=== PATIENT | female | born 1925 | race Caucasian/White ===

== ENCOUNTER → 2016-03-19 | Outpatient (REF) | payer MEDICARE, MEDICAID ==
[~2016-03-19] MED LIST: /ALEN70TA; ACET65TA; ALPR0.25; BISA10SU2; CALCCHW12; CEFD1CAP8 PO; CITA20TA4 PO; COLA100C PO; COLA100C2; COUM1TAB17 PO; COUM1TAB19 PO; COUM2.5T11 PO; DARV100T; DESMOPRESSIN; DIVA250T7 PO; ESTR62CR PV; FLEXERIL; FLON0.05; FLOVENT; LEVO500T32 PO; LEVO75TA4 PO; MACR100C42 PO; METH1CHW3 PO; MILKSUS; MIRA3350 PO; MIRA33504 PO; MIRT45TA PO; NAPR500T; NYST100024 TOP; PREPOI TOP; SENN1TAB2 PO; SENN8.6T5; SILV50CR TOP; SYNT75TA; SYNT75TA PO; THERGRAN; VICO5TAB; VIMP100T PO; VIMP200T PO; VITA-113; VITA10002 PO; VITAMIN B12; VOLTAREN; WARF-18 PO; WARF4TAB52 PO; XANA0.25; XANA0.25 PO; XANA0.5T PO; [UNRECOGNIZED DRUG - CODE] IV; [UNRECOGNIZED DRUG - OTHER]
== END ==
LOC: M LAB REF 19:42
PROVIDERS: ATTEND Hospitalist
DX: R19.7 Diarrhea, unspecified (principal)

== ENCOUNTER 2016-03-20 10:00 | Inpatient (IN) | payer MEDICARE, MEDICAID ==
[2016-03-20] VITALS (10 sets, daily range): BP systolic 101–168; BP diastolic 59–119
[~2016-03-20] VITALS: Ht 152.4 cm; Wt 58.9 kg
[2016-03-20] MEDS: NYSTATIN 100,000 UNITS/GM TOPICAL PWD 15 GM TOP SCH ×2 (09:00→21:00)
[2016-03-20] MEDS ORDERED: cefTAZidime 1 GM VIAL (J0713) As Ordered ONE (10:09)
[2016-03-20] MEDS ORDERED: cefTRIAXone SOD 1 GM VIAL (J0696) As Ordered ONE (10:11)
[2016-03-20 10:37] LABS: INR 3.31
[2016-03-20 10:40] LABS: BASO # 0.1 K/mm3 (0.0-0.2); BASO % 0.6 % (0.0-1.0); EOS # 0.1 K/mm3 (0.0-0.50); EOS % 0.4 % (0.0-3.0); LARGE UNSTAINED CELL # 0.2 K/mm3 (0.0-0.4); LARGE UNSTAINED CELL % 0.7 % (0.0-4.0); LYMPH # 1.2 K/mm3 (1.5-4.5); LYMPH % 5.1 % (24.0-44.0); MEAN CORPUSCULAR HEMOGLOBIN 29.8 pg (27.0-33.0); MEAN CORPUSCULAR HGB CONC 31.9 g/dl (32.0-36.5); MEAN CORPUSCULAR VOLUME 93.5 fl (80.0-96.0); MONO # 0.8 K/mm3 (0.0-0.8); MONO % 3.7 % (0.0-5.0); NEUTROPHILS # 19.1 K/mm3 (1.8-7.7); NEUTROPHILS % 89.6 % (36.0-66.0); PLATELET COUNT, AUTOMATED 258 k/mm3 (150-450); RED CELL DISTRIBUTION WIDTH 14.3 % (11.5-14.5); WHITE BLOOD COUNT 21.3 K/mm3 (4.0-10.0)
[2016-03-20 10:40] LABS: ABG BASE EXCESS -1.8 (-2.0-2.0); ABG DEVICE NASAL CANN; ABG HCO3 22.3 MEQ/L (22.0-26.0); ABG PARTIAL PRESSURE CO2 35.9 mmHg (35.0-45.0); ABG TOTAL CO2 23.4 MEQ/L (23.0-31.0); ABG pH (ARTERIAL) 7.411 UNITS (7.350-7.450)
[2016-03-20 10:55] LABS: ALBUMIN 3.4 GM/DL (3.2-5.2); ALBUMIN/GLOBULIN RATIO 0.83 (1.00-1.93); BILIRUBIN,DIRECT 0.1 MG/DL (0.0-0.2); BILIRUBIN,TOTAL 0.8 MG/DL (0.2-1.0); CREATININE FOR GFR 1.51 MG/DL (0.55-1.02); GLOMERULAR FILTRATION RATE 34.6 (>32); POTASSIUM SERUM 4.5 MEQ/L (3.5-5.1); TOTAL PROTEIN 7.5 GM/DL (6.4-8.2)
--- NOTE | 2016-03-20 11:11 | REP ---
Chest x-ray: Single view. History: Cough. Comparison chest x-ray February 15, 2016. Findings: Moderate to marked cardiomegaly is observed as before. The lungs are symmetrically aerated and free of infiltrate. Pleural angles are sharp. There is diffuse osteopenia. Patient is rotated slightly to the right for the current exposure. EKG monitoring electrodes and oxygen delivery tubing are seen. Impression: Moderate cardiomegaly. Otherwise no acute disease. Signed by Sabino Greco MD 03/20/2016 02:57 P
[2016-03-20 12:08] LABS: THYROXINE (T4) 12.3 UG/DL (4.5-12.0)
[2016-03-20] MEDS ORDERED: WARF-18 PO (12:59)
[2016-03-20] MEDS ORDERED: ONDANSETRON 4MG/2ML VIAL (J2405) IV PRN (13:00)
[2016-03-20] MEDS: D5W/0.9% SODIUM CHLORIDE 1,000 ML IV SCH ×2 (13:00→20:09)
[2016-03-20] MEDS ORDERED: LACTATED RINGER'S 1000 ML IV ONE (13:00)
[2016-03-20] MEDS ORDERED: MEROPENEM INJ 1 GM in D5W MINI-BAG PLUS 100 ML IV SCH (13:15)
--- NOTE | 2016-03-20 13:19 | REP ---
SINGLE VIEW CHEST: Single AP view of the chest is performed and compared to prior exam earlier today. There is placement of a right central venous catheter and the tip is in the right atrium. There is no pneumothorax. Lungs are unchanged in appearance. Cardiomediastinal silhouette is unchanged. IMPRESSION: Placement of right central venous catheter with the tip in the right atrium. No pneumothorax. Signed by Bonifacio Heaton MD 03/21/2016 01:12 P
--- NOTE | 2016-03-20 15:30 | EDDOCDS ---
Physician Documentation [facility] Name: Izabela Tovar Age: 89 yrs Sex: Female : 1925 Arrival Date: 03/20/2016 Time: 10:00 Bed 1 Private MD: Disposition: 03/20/16 11:50 Hospitalization ordered by Shandra Weldon for Inpatient Admission. Preliminary diagnosis is Sepsis, unspecified organism. - Bed requested for M ICU. - Status is Inpatient Admission. deg - Condition is Stable. - Problem is new. - Symptoms are unchanged. Historical: - Allergies: Aspirin; Erythromycin; Flagyl; PENICILLINS; Pineapple; Sedatives; - Home Meds: 1. Coumadin 2.5 mg Oral tab once daily every day except Wed 2. mirtazapine 45 mg Oral tab 1 tab nightly 3. Synthroid 75 mcg Oral tab 1 tab once daily (Last dose: 03/20/2016 09:00) 4. Vimpat 100 mg oral tab 1 tab 2 times per day 0900, 2000 (Last dose: 03/20/2016 09:00) 5. Xanax 0.25mg to 0 .5 mg as needed Oral tab 1 tab two times per day as needed 0.25mg dose 0900, 0.25mg dose at 1430, 0.25mg dose 1700, 0.5mg dose at 1900 - PMHx: Asthma; Bronchitis; CVA; Dementia; DVT; hearing loss; Hypothyroidism; lumbar fractures; Macular Degeneration; Osteoporosis; PE; Seizures; C-diff; UTI's, Frequent; - PSHx: Cholecystectomy; back surgery; - Social history: Smoking status: Patient states former smoker of tobacco. . - Family history: Not pertinent. - : The pt / caregiver states he / she is on anticoagulants: coumadin. Home medication list is obtained from family members. - Exposure Risk Screening:: None identified. Vital Signs: 03/20 09:59 BP 93 / 53 (auto/); jo3 10:01 Pulse Ox 93% ; jo3 10:13 Pulse 97 MON; Pulse Ox 96% ; jo3 10:13 BP 100 / 55 (auto/); jo3 10:20 BP 100 / 55; Pulse 92; Resp 18; Temp 98.2(TE); Pulse Ox 98% on R/A; dem1 10:23 BP 106 / 71 (auto/); jo3 10:23 Pulse 93 MON; Pulse Ox 96% ; jo3 10:25 BP 101 / 56 (auto/); jo3 10:25 Pulse 92 MON; Pulse Ox 94% ; jo3 10:30 BP 107 / 54 (auto/); jo3 10:30 Pulse 90 MON; Pulse Ox 94% ; jo3 10:31 Weight 50.8 kg / 111.99 lbs; Height 5 ft. 0 in. (152.40 cm); jo3 10:40 BP 93 / 55 (auto/); jo3 10:40 Pulse 88 MON; Pulse Ox 72% ; jo3 10:50 BP 100 / 56 (auto/); jo3 10:50 Pulse 85 MON; Pulse Ox 99% ; jo3 11:00 BP 102 / 11 (auto/); jo3 11:00 Pulse 86 MON; Pulse Ox 98% ; jo3 11:06 BP 94 / 55 (auto/); jo3 11:06 Pulse 85 MON; Pulse Ox 98% ; jo3 11:22 BP 97 / 50 (auto/); jo3 11:22 Pulse 85 MON; Pulse Ox 98% ; jo3 11:31 BP 95 / 49 (auto/); jo3 11:31 Pulse 83 MON; Pulse Ox 98% ; jo3 11:45 BP 78 / 39 (auto/); jo3 11:45 Pulse 81 MON; Pulse Ox 98% ; jo3 11:51 BP 78 / 43 (auto/); jo3 11:51 Pulse 80 MON; Pulse Ox 98% ; jo3 11:52 BP 79 / 43 (auto/); jo3 11:52 Pulse 80 MON; Pulse Ox 98% ; jo3 11:58 BP 87 / 49 (auto/); jo3 11:58 Pulse 82 MON; Pulse Ox 98% ; jo3 12:00 BP 87 / 49 (auto/); jo3 12:00 Pulse 80 MON; Pulse Ox 99% ; jo3 12:32 BP 85 / 50 (auto/); jo3 12:32 Pulse 80 MON; Pulse Ox 94% ; jo3 12:42 BP 87 / 54 (auto/); jo3 12:42 Pulse 79 MON; Pulse Ox 94% ; jo3 12:50 BP 93 / 56 (auto/); jo3 12:50 Pulse 78 MON; Pulse Ox 86% ; jo3 12:58 BP 91 / 52 (auto/); jo3 12:58 Pulse 78 MON; Pulse Ox 99% ; jo3 13:00 BP 99 / 54 (auto/); jo3 13:00 Pulse 79 MON; Pulse Ox 98% ; jo3 13:15 BP 112 / 64 (auto/); jo3 13:15 Pulse 78 MON; Pulse Ox 97% ; jo3 13:19 ml6 13:30 BP 83 / 44 (auto/); jo3 13:30 Pulse 76 MON; Pulse Ox 95% ; jo3 13:36 BP 80 / 41 (auto/); jo3 13:36 Pulse 75 MON; Pulse Ox 94% ; jo3 13:42 BP 101 / 59 (auto/); jo3 13:42 Pulse 76 MON; Pulse Ox 97% ; jo3 13:45 BP 95 / 53 (auto/); jo3 13:45 Pulse 76 MON; Pulse Ox 98% ; jo3 13:45 Temp 94.5(R); jo3 14:00 BP 92 / 55 (auto/); jo3 14:00 Pulse 75 MON; Pulse Ox 98% ; jo3 14:15 BP 91 / 55 (auto/); jo3 14:15 Pulse 75 MON; Pulse Ox 99% ; jo3 14:30 BP 94 / 52 (auto/); jo3 14:30 Pulse 74 MON; Pulse Ox 97% ; jo3 14:45 BP 92 / 51 (auto/); jo3 14:45 Pulse 74 MON; Pulse Ox 98% ; jo3 15:00 BP 103 / 57 (auto/); jo3 15:00 Pulse 72 MON; Pulse Ox 100% ; jo3 15:13 BP 102 / 59 (auto/); jo3 15:13 Pulse 72 MON; Pulse Ox 99% ; jo3 15:15 BP 112 / 64 (auto/); jo3 15:15 Pulse 71 MON; Pulse Ox 100% ; jo3 10:31 Body Mass Index 21.87 (50.80 kg, 152.40 cm) jo3 13:19 CVP 15 ml6 13:45 Wrapped in warm blankets at this time jo3 MDM: 10:04 -Blood Culture (Adults Only), peripheral from different site, or from device/port/PICC sd1 etc. if present ordered. 10:04 Call Respiratory ordered. sd1 10:04 Studio Director/Pulse Ox/q 15 min VS ordered. sd1 10:04 Large bore IV x 2 ordered. sd1 10:04 Oxygen at 4L/Min NC or Home dosage ordered. sd1 10:04 Set up for triple lumen central Iine placement ordered. sd1 10:04 Intake and Output Hourly ordered. sd1 10:04 NS 0.9% (Sepsis- hypotension or lactate >4mmol/L, 30ml/kg) 30 ml/kg IV at bolus once; sd1 Give in 500mL aliquots, assess for rales after each, 2 L ordered. 10:04 cefTRIAXone 2 grams IVPB once over 30 mins; dilute in 50mL of NS or D5W ordered. sd1 10:05 Type & Screen Ordered. EDMS 10:06 -Arterial Blood Gas Ordered. EDMS 10:06 Amylase Ordered. EDMS 10:06 C Reactive Protein Ordered. EDMS 10:06 CBC with Diff Ordered. EDMS 10:06 Lactic Acid (Heaton tube on ice) Ordered. EDMS 10:06 Liver Profile Ordered. EDMS 10:06 MED Profile Ordered. EDMS 10:06 PT/INR Ordered. EDMS 10:06 PTT Ordered. EDMS 10:06 Urinalysis Ordered. EDMS 10:06 -Blood Culture Ordered. EDMS 10:06 Urine Culture Ordered. EDMS 10:06 Chest, 1 View Ordered. EDMS 10:07 ECG WITH READING ER PHYS+CARDIAG ordered. EDMS 10:07 BED REQUEST+ADM ordered. EDMS 10:19 -Blood Culture (Adults Only), peripheral from different site, or from device/port/PICC deg etc. if present complete. 10:20 Call Respiratory complete. deg 10:21 BLOOD CULTURES Ordered. EDMS 11:18 -Arterial Blood Gas Reviewed. sd1 11:18 C Reactive Protein Reviewed. sd1 11:18 CBC with Diff Reviewed. sd1 11:18 Lactic Acid (Heaton tube on ice) Reviewed. sd1 11:18 Liver Profile Reviewed. sd1 11:18 MED Profile Reviewed. sd1 11:18 PT/INR Reviewed. sd1 11:18 PTT Reviewed. sd1 11:18 Amylase Reviewed. sd1 11:18 Type & Screen Reviewed. sd1 11:35 Chest, 1 View Reviewed. sd1 11:50 Repeat EKG (put time details section) ordered. sd1 12:25 portable chest Ordered. EDMS 12:27 Financial registration complete. lg 12:42 Repeat EKG (put time details section) complete. deg 12:43 ECG WITH READING ER PHYS ordered. EDMS 12:57 NPO DIET ordered. EDMS 12:57 CARDIAC MARKER PANEL Ordered. EDMS 12:57 CARDIAC MARKER PANEL Ordered. EDMS 12:58 LACTIC ACID LEVEL, LACTATE Ordered. EDMS 12:58 LACTIC ACID LEVEL, LACTATE Ordered. EDMS 12:58 GASTROINTESTINAL (GI) PANEL Ordered. EDMS 13:06 Admission / Observation Status ordered. EDMS 13:06 ECHOCARD,DOPPLER/COLOR FLOW ordered. EDMS 15:14 CT ABD & PELVIS W/O CONTRAST Ordered. EDMS Administered Medications: 10:18 Drug: cefTRIAXone 2 grams [ceftriaxone 1 gram solution for injection] Route: IVPB; kr3 Infused Over: 30 mins; Site: right forearm; 10:39 Drug: NS 0.9% (Sepsis- hypotension or lactate >4mmol/L, 30ml/kg) 1524 ml [sodium jo3 chloride 0.9 % intravenous solution] Route: IV; Rate: bolus; Site: right forearm; 12:00 Follow up: IV Status: Completed infusion jo3 Signatures: Dispatcher [employer] EDFrancisca Lubin MD MD sd1 Cortney Delgado, Power Project Manager Unit deg Brittany Rodriguez, eNlson Reg lg Amy Bailey,RN RN jo3 Puneet Mena RN RN sa Robie, Kathleen RN kr3 The chart was reviewed and I authenticate all verbal orders and agree with the evaluation and treatment provided.Corrections: (The following items were deleted from the chart) 11:42 11:37 CARDIAC INJURY PROFILE+LAB ordered. EDMS EDMS 11:42 11:38 TROPONIN+LAB ordered. EDIA EDMS 11:42 11:40 THYROID PROFILE+LAB ordered. EDIA EDMS 12:58 12:55 GASTROINTESTINAL (GI) PANEL ordered. EDIA EDMS MTDD
--- NOTE | 2016-03-20 15:30 | EDDOCDS ---
Nurse's Notes [facility] Name: Izabela Tovar Age: 89 yrs Sex: Female : 1925 Arrival Date: 03/20/2016 Time: 10:00 Bed 1 Private MD: Diagnosis: Sepsis, unspecified organism Presentation: 03/20 10:24 Presenting complaint: Child states: Treating for c-diff. Has had increasing AMS jo3 throughout the morning. Spiking fevers at home. The last date and time the patient was known to be well was was at an unknown time on March 20, 2016. An acute neurological deficit is present. The charge nurse has been notified. The patient has been moved to a treatment area. Adult Sepsis Screening: Patient has new or worsening altered mentation (1 point). Patient's respiratory rate is less than 22. Systolic blood pressure is less than or equal to 100 (1 point). Patient has a qSOFA score of 2. Suicide/Homicide risk assessment- the patient denies having any suicidal and/or homicidal ideations and does not present with any other emotional, behavioral or mental health complaints. Status: Patient is not a bridal service sales and management or dependent. Transition of care: patient was not received from another setting of care. 10:24 Acuity: NIC Level 2 jo3 10:24 Method Of Arrival: Walkin/Carried/Asstd jo3 Historical: - Allergies: Aspirin; Erythromycin; Flagyl; PENICILLINS; Pineapple; Sedatives; - Home Meds: 1. Coumadin 2.5 mg Oral tab once daily every day except Wed 2. mirtazapine 45 mg Oral tab 1 tab nightly 3. Synthroid 75 mcg Oral tab 1 tab once daily (Last dose: 03/20/2016 09:00) 4. Vimpat 100 mg oral tab 1 tab 2 times per day 0900, 2000 (Last dose: 03/20/2016 09:00) 5. Xanax 0.25mg to 0 .5 mg as needed Oral tab 1 tab two times per day as needed 0.25mg dose 0900, 0.25mg dose at 1430, 0.25mg dose 1700, 0.5mg dose at 1900 - PMHx: Asthma; Bronchitis; CVA; Dementia; DVT; hearing loss; Hypothyroidism; lumbar fractures; Macular Degeneration; Osteoporosis; PE; Seizures; C-diff; UTI's, Frequent; - PSHx: Cholecystectomy; back surgery; - Social history: Smoking status: Patient states former smoker of tobacco. . - Family history: Not pertinent. - : The pt / caregiver states he / she is on anticoagulants: coumadin. Home medication list is obtained from family members. - Exposure Risk Screening:: None identified. Screenin:20 Fall risk: At risk due to immobility. Assistance ADL's: Requires assistance with meal jo3 preparation, this assistance is provided by family members, bathing, assistance is provided by family members, dressing, assistance is provided by family members, toileting, assistance is provided by family members, housework, assistance is provided by family members, medication administration, assistance is provided by family members. Abuse/DV Screen: The patient / caregiver reports he/she is: Unable to Assess. Nutritional screening: No deficits noted. Advance Directives: There is no active DNR order. home support is adequate. 13:45 Screening information is obtained from family members. jo3 Assessment: 10:30 General: Appears ill, well groomed, Behavior is cooperative, quiet. Neurological: Level jo3 of Consciousness is confused, lethargic. EENT: No deficits noted. Cardiovascular: Capillary refill is brisk Heart tones S1 S2 present Edema is absent. Rhythm is sinus rhythm No ectopy. Respiratory: Airway is patent Respiratory effort is even, unlabored, Breath sounds are clear bilaterally. GI: Parent/caregiver reports the patient having C-diff history with recent negative stool. Derm: Skin is intact, Skin is dry, Skin is pale. 11:35 General: Appears in no apparent distress. Respiratory: Airway is patent Respiratory jo3 effort is even, unlabored, LS CTA following each 500cc IVF bolus. Sl ion LAC asymptomatic and infusing freely. Yee catheter placed for clear yellow urine. Drained 600cc immediately. 12:45 Reassessment: Patient appears in no apparent distress at this time. Central line placed jo3 by Dr Weldon. Daughter and caregiver remain at bedside. Pt tolerated well. Awaiting admission to ICU. Aware of plan of care . 13:20 General: Appears in no apparent distress, Behavior is quiet. Neurological: Level of jo3 Consciousness is confused, lethargic. Cardiovascular: Capillary refill is brisk Heart tones S1 S2 present Edema is absent. Rhythm is sinus rhythm No ectopy. Respiratory: Airway is patent Respiratory effort is even, unlabored, Breath sounds are clear bilaterally. in right upper lobe, left upper lobe, right middle lobe, left posterior upper lobe, right posterior upper lobe, left posterior lower lobe, right posterior middle lobe and right posterior lower lobe. Derm: Skin is pink, warm & dry. 14:09 General: Appears in no apparent distress, comfortable, Behavior is quiet. General: jo3 Awaiting admission to medical floor. Aware of plan of care . Neurological: Level of Consciousness is confused, lethargic. Cardiovascular: Rhythm is sinus rhythm No ectopy. Respiratory: Airway is patent Respiratory effort is even, unlabored. Derm: Skin is intact, Skin is dry, Skin is pale, Skin temperature is cool. 15:14 General: Appears in no apparent distress, comfortable, Behavior is quiet. Neurological: jo3 Level of Consciousness is lethargic. Cardiovascular: Rhythm is sinus rhythm No ectopy. Respiratory: Airway is patent Respiratory effort is even, unlabored. Vital Signs: 09:59 BP 93 / 53 (auto/); jo3 10:01 Pulse Ox 93% ; jo3 10:13 Pulse 97 MON; Pulse Ox 96% ; jo3 10:13 BP 100 / 55 (auto/); jo3 10:20 BP 100 / 55; Pulse 92; Resp 18; Temp 98.2(TE); Pulse Ox 98% on R/A; dem1 10:23 BP 106 / 71 (auto/); jo3 10:23 Pulse 93 MON; Pulse Ox 96% ; jo3 10:25 BP 101 / 56 (auto/); jo3 10:25 Pulse 92 MON; Pulse Ox 94% ; jo3 10:30 BP 107 / 54 (auto/); jo3 10:30 Pulse 90 MON; Pulse Ox 94% ; jo3 10:31 Weight 50.8 kg; Height 5 ft. 0 in. (152.40 cm); jo3 10:40 BP 93 / 55 (auto/); jo3 10:40 Pulse 88 MON; Pulse Ox 72% ; jo3 10:50 BP 100 / 56 (auto/); jo3 10:50 Pulse 85 MON; Pulse Ox 99% ; jo3 11:00 BP 102 / 11 (auto/); jo3 11:00 Pulse 86 MON; Pulse Ox 98% ; jo3 11:06 BP 94 / 55 (auto/); jo3 11:06 Pulse 85 MON; Pulse Ox 98% ; jo3 11:22 BP 97 / 50 (auto/); jo3 11:22 Pulse 85 MON; Pulse Ox 98% ; jo3 11:31 BP 95 / 49 (auto/); jo3 11:31 Pulse 83 MON; Pulse Ox 98% ; jo3 11:45 BP 78 / 39 (auto/); jo3 11:45 Pulse 81 MON; Pulse Ox 98% ; jo3 11:51 BP 78 / 43 (auto/); jo3 11:51 Pulse 80 MON; Pulse Ox 98% ; jo3 11:52 BP 79 / 43 (auto/); jo3 11:52 Pulse 80 MON; Pulse Ox 98% ; jo3 11:58 BP 87 / 49 (auto/); jo3 11:58 Pulse 82 MON; Pulse Ox 98% ; jo3 12:00 BP 87 / 49 (auto/); jo3 12:00 Pulse 80 MON; Pulse Ox 99% ; jo3 12:32 BP 85 / 50 (auto/); jo3 12:32 Pulse 80 MON; Pulse Ox 94% ; jo3 12:42 BP 87 / 54 (auto/); jo3 12:42 Pulse 79 MON; Pulse Ox 94% ; jo3 12:50 BP 93 / 56 (auto/); jo3 12:50 Pulse 78 MON; Pulse Ox 86% ; jo3 12:58 BP 91 / 52 (auto/); jo3 12:58 Pulse 78 MON; Pulse Ox 99% ; jo3 13:00 BP 99 / 54 (auto/); jo3 13:00 Pulse 79 MON; Pulse Ox 98% ; jo3 13:15 BP 112 / 64 (auto/); jo3 13:15 Pulse 78 MON; Pulse Ox 97% ; jo3 13:19 ml6 13:30 BP 83 / 44 (auto/); jo3 13:30 Pulse 76 MON; Pulse Ox 95% ; jo3 13:36 BP 80 / 41 (auto/); jo3 13:36 Pulse 75 MON; Pulse Ox 94% ; jo3 13:42 BP 101 / 59 (auto/); jo3 13:42 Pulse 76 MON; Pulse Ox 97% ; jo3 13:45 BP 95 / 53 (auto/); jo3 13:45 Pulse 76 MON; Pulse Ox 98% ; jo3 13:45 Temp 94.5(R); jo3 14:00 BP 92 / 55 (auto/); jo3 14:00 Pulse 75 MON; Pulse Ox 98% ; jo3 14:15 BP 91 / 55 (auto/); jo3 14:15 Pulse 75 MON; Pulse Ox 99% ; jo3 14:30 BP 94 / 52 (auto/); jo3 14:30 Pulse 74 MON; Pulse Ox 97% ; jo3 14:45 BP 92 / 51 (auto/); jo3 14:45 Pulse 74 MON; Pulse Ox 98% ; jo3 15:00 BP 103 / 57 (auto/); jo3 15:00 Pulse 72 MON; Pulse Ox 100% ; jo3 15:13 BP 102 / 59 (auto/); jo3 15:13 Pulse 72 MON; Pulse Ox 99% ; jo3 15:15 BP 112 / 64 (auto/); jo3 15:15 Pulse 71 MON; Pulse Ox 100% ; jo3 10:31 Body Mass Index 21.87 (50.80 kg, 152.40 cm) jo3 13:19 CVP 15 ml6 13:45 Wrapped in warm blankets at this time jo3 ED Course: 10:01 Patient visited by Cortney Delgado, Forensic Engineer. deg 10:01 Patient moved to Waiting deg 10:01 The patient / caregiver is instructed regarding the plan of care and ED course. jo3 10:02 Patient moved to 1 deg 10:03 Francisca Marks MD is Attending Physician. sd1 10:03 Patient visited by Francisca Marks MD. sd1 10:08 Inserted saline lock: 20 gauge in right forearm. kr3 10:09 EKG done. (by ED staff). Reviewed by Francisca Marks MD. dem1 10:14 Patient visited by Mariella Frias. dem1 10:21 Patient visited by Mariella Frias. dem1 10:24 BLOOD CULTURES Sent. jo3 10:27 Triage Initiated jo3 10:30 Inserted saline lock: 18 gauge in left antecubital area. Labs drawn. (by ED staff). jo3 Sent per order to lab. Labs/Blood culture drawn. 10:31 Patient visited by Amy Bailey RN. jo3 10:42 -Arterial Blood Gas Sent. js 11:20 Chest, 1 View Returned. EDMS 11:34 Patient visited by Dee Chandra PCA. ct3 11:50 Shandra Weldon is Hospitalizing Provider. sd1 11:57 Patient visited by Amy Bailey,HENRY. jo3 12:45 Assist provider with central line placement of triple lumen in right internal jugular. jo3 Set up central line tray. Line placed by Shandra He Placement verified by CXR, blood return, Dressed with Tegaderm, CHG Patient tolerated well. 13:20 No procedures done that require assistance. jo3 13:47 portable chest Returned. EDMS 14:20 Patient visited by Amy Bailey RN. jo3 15:29 Chest, 1 View Returned. EDMS Administered Medications: 10:18 Drug: cefTRIAXone 2 grams [ceftriaxone 1 gram solution for injection] Route: IVPB; kr3 Infused Over: 30 mins; Site: right forearm; 10:39 Drug: NS 0.9% (Sepsis- hypotension or lactate >4mmol/L, 30ml/kg) 1524 ml [sodium jo3 chloride 0.9 % intravenous solution] Route: IV; Rate: bolus; Site: right forearm; 12:00 Follow up: IV Status: Completed infusion jo3 Intake: 15:20 PO: 0.00ml; IV: 3100.00ml; Total: 3100.00ml. jo3 Output: 15:20 Urine: 1100.00ml; Total: 1100.00ml. jo3 RT: 10:42 ABG's drawn from right radial artery allens test done and positive pressure held for 5 js minutes no bleeding noted pressure bandage applied specimen sent pt. tolerated well. O2 via nasal cannula \T\ 4L/min. Order Results: Lab Order: -Arterial Blood Gas; SPEC'M 03/20/16 10:34 Test: ABG pH (ARTERIAL); Value: 7.411; Range: 7.350-7.450; Units: UNITS; Status: F Test: ABG PARTIAL PRESSURE CO2; Value: 35.9; Range: 35.0-45.0; Units: mmHg; Status: F Test: ABG PARTIAL PRESSURE O2; Value: 113.0; Range: 75.0-100.0; Abnormal: Above high normal; Units: mmHg; Status: F Test: ABG TOTAL CO2; Value: 23.4; Range: 23.0-31.0; Units: MEQ/L; Status: F Test: ABG HCO3; Value: 22.3; Range: 22.0-26.0; Units: MEQ/L; Status: F Test: ABG BASE EXCESS; Value: -1.8; Range: -2.0-2.0; Status: F Test: ABG STANDARD HCO3; Value: 23.0; Range: 22.0-26.0; Units: MEQ/L; Status: F Test: ABG O2 SATURATION; Value: 98.2; Range: 95.0-99.0; Units: %; Status: F Test: ABG DEVICE; Value: NASAL SUNNI; Status: F Lab Order: Amylase; SPEC'M 03/20/16 10:14 Test: AMYLASE; Value: 53; Range: 25-115; Units: U/L; Status: F Lab Order: C Reactive Protein; SPEC'M 03/20/16 10:14 Test: C REACTIVE PROTEIN QUANTITATIV; Value: 4.64; Range: 0.00-0.30; Abnormal: Above high normal; Units: MG/DL; Status: F Lab Order: CBC with Diff; SPEC'M 03/20/16 10:14 Test: WHITE BLOOD COUNT; Value: 21.3; Range: 4.0-10.0; Abnormal: Above high normal; Units: K/mm3; Status: F Test: RED BLOOD COUNT; Value: 4.73; Range: 4.00-5.40; Units: M/mm3; Status: F Test: HEMOGLOBIN; Value: 14.1; Range: 12.0-16.0; Units: g/dl; Status: F Test: HEMATOCRIT; Value: 44.2; Range: 36.0-47.0; Units: %; Status: F Test: MEAN CORPUSCULAR VOLUME; Value: 93.5; Range: 80.0-96.0; Units: fl; Status: F Test: MEAN CORPUSCULAR HEMOGLOBIN; Value: 29.8; Range: 27.0-33.0; Units: pg; Status: F Test: MEAN CORPUSCULAR HGB CONC; Value: 31.9; Range: 32.0-36.5; Abnormal: Below low normal; Units: g/dl; Status: F Test: RED CELL DISTRIBUTION WIDTH; Value: 14.3; Range: 11.5-14.5; Units: %; Status: F Test: PLATELET COUNT, AUTOMATED; Value: 258; Range: 150-450; Units: k/mm3; Status: F Test: NEUTROPHILS %; Value: 89.6; Range: 36.0-66.0; Abnormal: Above high normal; Units: %; Status: F Test: LYMPH %; Value: 5.1; Range: 24.0-44.0; Abnormal: Below low normal; Units: %; Status: F Test: MONO %; Value: 3.7; Range: 0.0-5.0; Units: %; Status: F Test: EOS %; Value: 0.4; Range: 0.0-3.0; Units: %; Status: F Test: BASO %; Value: 0.6; Range: 0.0-1.0; Units: %; Status: F Test: LARGE UNSTAINED CELL %; Value: 0.7; Range: 0.0-4.0; Units: %; Status: F Test: NEUTROPHILS #; Value: 19.1; Range: 1.8-7.7; Abnormal: Above high normal; Units: K/mm3; Status: F Test: LYMPH #; Value: 1.2; Range: 1.5-4.5; Abnormal: Below low normal; Units: K/mm3; Status: F Test: MONO #; Value: 0.8; Range: 0.0-0.8; Units: K/mm3; Status: F Test: EOS #; Value: 0.1; Range: 0.0-0.50; Units: K/mm3; Status: F Test: BASO #; Value: 0.1; Range: 0.0-0.2; Units: K/mm3; Status: F Test: LARGE UNSTAINED CELL #; Value: 0.2; Range: 0.0-0.4; Units: K/mm3; Status: F Lab Order: Lactic Acid (Heaton tube on ice); SPEC'M 03/20/16 10:14 Test: LACTIC ACID LEVEL, LACTATE; Value: 2.7; Range: 0.4-2.0; Abnormal: Above upper panic limits; Units: MMOL/L; Status: F Lab Order: Liver Profile; SPEC'M 03/20/16 10:14 Test: AST/SGOT; Value: 20; Range: 15-37; Units: U/L; Status: F Test: ALT/SGPT; Value: 21; Range: 12-78; Units: U/L; Status: F Test: ALKALINE PHOSPHATASE; Value: 93; Range: 45-117; Units: U/L; Status: F Test: BILIRUBIN,TOTAL; Value: 0.8; Range: 0.2-1.0; Units: MG/DL; Status: F Test: BILIRUBIN,DIRECT; Value: 0.1; Range: 0.0-0.2; Units: MG/DL; Status: F Test: TOTAL PROTEIN; Value: 7.5; Range: 6.4-8.2; Units: GM/DL; Status: F Test: ALBUMIN; Value: 3.4; Range: 3.2-5.2; Units: GM/DL; Status: F Test: ALBUMIN/GLOBULIN RATIO; Value: 0.83; Range: 1.00-1.93; Abnormal: Below low normal; Status: F Lab Order: MED Profile; SPEC'M 03/20/16 10:14 Test: GLUCOSE, FASTING; Value: 109; Range: 83-110; Units: MG/DL; Status: F Test: BLOOD UREA NITROGEN; Value: 24; Range: 7-18; Abnormal: Above high normal; Units: MG/DL; Status: F Test: CREATININE FOR GFR; Value: 1.51; Range: 0.55-1.02; Abnormal: Above high normal; Units: MG/DL; Status: F Test: GLOMERULAR FILTRATION RATE; Value: 34.6; Range: >32; Status: F Test: SODIUM LEVEL; Value: 141; Range: 136-145; Units: MEQ/L; Status: F Test: POTASSIUM SERUM; Value: 4.5; Range: 3.5-5.1; Units: MEQ/L; Status: F Test: CHLORIDE LEVEL; Value: 106; Range: 98-107; Units: MEQ/L; Status: F Test: CARBON DIOXIDE LEVEL; Value: 27; Range: 21-32; Units: MEQ/L; Status: F Test: ANION GAP; Value: 8; Range: 8-16; Units: MEQ/L; Status: F Test: CALCIUM LEVEL; Value: 9.0; Range: 8.8-10.2; Units: MG/DL; Status: F Test Note: ; Units are mL/min/1.73 m2 Chronic Kidney Disease Staging per NKF: Stage I & II GFR >=60 Normal to Mildly Decreased Stage III GFR 30-59 Moderately Decreased Stage IV GFR 15-29 Severely Decreased Stage V GFR <15 Very Little GFR Left ESRD GFR <15 on PROP SAWYER Lab Order: PT/INR; [facility] 03/20/16 10:14 Test: PROTHROMBIN TIME; Value: 33.6; Range: 12.3-14.5; Abnormal: Above high normal; Units: SECONDS; Status: F Test: INR; Value: 3.31; Status: F Test Note: ; THERAPUTIC HUMAN INR VALUES INDICATIONS NORMAL RANGES PROPHYLAXIS/TREATMENT OF: VENOUS THROMBOSIS 2.0-3.0 PULMONARY EMBOLISM 2.0-3.0 PREVENTION OF SYSTEMIC EMBOLISM FROM: TISSUE HEART VALVES 2.0-3.0 ACUTE MYOCARDIAL INFARCTION 2.0-3.0 VALVULAR HEART DISEASE 2.0-3.0 ATRIAL FIBRILLATION 2.0-3.0 MECHANICAL VALVES(HIGH RISK) 2.5-3.5 RECURRENT MYOCARDIAL INFARCTION 2.5-3.5 Lab Order: PTT; [facility] 03/20/16 10:14 Test: PARTIAL THROMBOPLASTIN TIME; Value: 47.0; Range: 26.6-37.1; Abnormal: Above high normal; Units: SECONDS; Status: F Lab Order: Type & Screen; [facility] 03/20/16 10:14 Test: BLOOD TYPE; Value: O POS; Status: F Test: AB SCREEN (INDIRECT LUIS)GEL; Value: NEGATIVE; Status: F Lab Order: Urinalysis; [facility] 03/20/16 10:16 Test: APPEARANCE, URINE; Value: HAZY; Range: CLEAR; Status: F Test: COLOR, URINE; Value: YELLOW; Range: YELLOW; Status: F Test: PH,URINE; Value: 5.0; Range: 5.0-9.0; Units: UNITS; Status: F Test: SPECIFIC GRAVITY URINE AUTO; Value: 1.009; Range: 1.002-1.035; Status: F Test: PROTEIN, URINE AUTO; Value: NEGATIVE; Range: NEGATIVE; Units: mg/dL; Status: F Test: GLUCOSE, URINE (UA) AUTO; Value: NEGATIVE; Range: NEGATIVE; Units: mg/dL; Status: F Test: KETONE, URINE AUTO; Value: NEGATIVE; Range: NEGATIVE; Units: mg/dL; Status: F Test: UROBILINOGEN, URINE AUTO; Value: 0.2; Range: 0.0-2.0; Units: mg/dL; Status: F Test: BILIRUBIN, URINE AUTO; Value: NEGATIVE; Range: NEGATIVE; Status: F Test: NITRITE, URINE AUTO; Value: NEGATIVE; Range: NEGATIVE; Status: F Test: LEUKOCYTE ESTERASE, URINE AUTO; Value: TRACE; Range: NEGATIVE; Abnormal: Above high normal; Status: F Test: BLOOD, URINE BLOOD; Value: 1+; Range: NEGATIVE; Abnormal: Above high normal; Status: F Test: WBC, URINE AUTO; Value: 5; Range: 0-3; Abnormal: Above high normal; Units: /HPF; Status: F Test: RBC, URINE AUTO; Value: 0; Range: 0-3; Units: /HPF; Status: F Test: BACTERIA, URINE AUTO; Value: NEGATIVE; Range: NEGATIVE; Status: F Test: SQUAMOUS EPITHELIAL CELL UR AU; Value: 5; Range: 0-6; Units: /HPF; Status: F Test: MUCUS, URINE; Value: SMALL; Range: NEGATIVE; Status: F Test: HYALINE CAST, URINE AUTO; Value: 4; Range: 0-1; Units: /LPF; Status: F Lab Order: CARDIAC INJURY PROFILE; SPEC'M 03/20/16 10:14 Test: CPK CREATINE PHOSPHOKINASE; Value: 55; Range: 26-192; Units: U/L; Status: F Test: CK-MB VALUE MASS; Value: 3.2; Range: 0.0-3.6; Units: NG/ML; Status: F Test: MB/CK RELATIVE INDEX; Value: 5.81; Range: < OR =4; Abnormal: Above high normal; Status: F Test Note: ; DIAGNOSIS CRITERIA MMB ng/ml Relative Index (RI) NON-AMI < or = 5 N/A [place] > 5 < or = 4 AMI > 5 > 4 Lab Order: TROPONIN; SPEC'M 03/20/16 10:14 Test: TROPONIN I; Value: 1.20; Range: < 0.10; Abnormal: Above high normal; Units: NG/ML; Status: F Test Note: ; Troponin I Reference Interval for [facility] LOCI: 99th Percentile= 0.00-0.045 ng/ml Risk Stratification: <= 0.10 ng/ml Decreased Risk for Adverse Clinical Events. 0.10-1.50 ng/ml Increased Risk for Adverse Clinical Events. Evaluation of additional criterion and/or repeat testing in 2-6 hours is suggested to rule out myocardial damage. >= 1.50 ng/ml Indicative of Myocardial Injury. Lab Order: THYROID PROFILE; SPEC'M 03/20/16 10:14 Test: T UPTAKE; Value: 38; Range: 30-39; Units: %; Status: F Test: THYROXINE (T4); Value: 12.3; Range: 4.5-12.0; Abnormal: Above high normal; Units: UG/DL; Status: F Test: FREE THYROXINE INDEX; Value: 4.7; Range: 1.3-4.8; Units: %; Status: F Test: THYROID STIMULATING HORMONE; Value: 0.355; Range: 0.358-3.740; Abnormal: Below low normal; Units: uIU/ML; Status: F Lab Order: CARDIAC MARKER PANEL; [facility] 03/20/16 13:57 Test: CPK CREATINE PHOSPHOKINASE; Value: 50; Range: 26-192; Units: U/L; Status: F Test: CK-MB VALUE MASS; Value: 3.1; Range: 0.0-3.6; Units: NG/ML; Status: F Test: MB/CK RELATIVE INDEX; Value: 6.20; Range: < OR =4; Abnormal: Above high normal; Status: F Test: TROPONIN I; Value: 0.80; Range: < 0.10; Abnormal: High; Units: NG/ML; Status: F Test Note: ; DIAGNOSIS CRITERIA MMB ng/ml Relative Index (RI) NON-AMI < or = 5 N/A [place] > 5 < or = 4 AMI > 5 > 4 Lab Order: LACTIC ACID LEVEL, LACTATE; SPEC' 03/20/16 13:57 Test: LACTIC ACID LEVEL, LACTATE; Value: 1.1; Range: 0.4-2.0; Units: MMOL/L; Status: F Lab Order: Fingerstick Blood Sugar; SPEC'M 03/20/16 13:52 Test: BEDSIDE GLUCOSE; Value: 94; Range: 83-110; Units: MG/DL; Status: F Radiology Order: Chest, 1 View Test: Chest, 1 View REASON FOR EXAMINATION: Cough; Chest x-ray: Single view.; ; History: Cough.; ; Comparison chest x-ray February 15, 2016.; ; Findings: Moderate to marked cardiomegaly is observed as before. The lungs are; symmetrically aerated and free of infiltrate. Pleural angles are sharp. There; is diffuse osteopenia. Patient is rotated slightly to the right for the current; exposure. EKG monitoring electrodes and oxygen delivery tubing are seen.; ; Impression:; ; Moderate cardiomegaly. Otherwise no acute disease.; ; ; Signed by; Sabino Greco MD 03/20/2016 02:57 P; Radiology Order: portable chest Test: portable chest REASON FOR EXAMINATION: confirm central line placement ; SINGLE VIEW CHEST:; ; Single AP view of the chest is performed and compared to prior exam earlier; today. There is placement of a right central venous catheter and the tip is in; the right atrium. There is no pneumothorax. Lungs are unchanged in appearance.; Cardiomediastinal silhouette is unchanged.; ; IMPRESSION:; Placement of right central venous catheter with the tip in the right atrium. No; pneumothorax.; ; Unreviewed; Outcome: 11:50 Decision to Hospitalize by Provider. sd1 13:45 Discharge Assessment: Patient awake, alert and oriented x 3. No cognitive and/or jo3 functional deficits noted. Patient verbalized understanding of disposition instructions. patient administered narcotics - no. The following High Risk Discharge criteria are identified: None. Admitted to ICU accompanied by nurse, accompanied by tech, family with patient, via stretcher, with oxygen, on monitor, with chart. Condition: stable. CT Study completed. Admission hand-off: Report called to Elizabeth. Stated ready to receive pt. Property :Personal belongings accompany Pt. 15:29 Patient left the ED. deg Signatures: Dispatcher [facility] Francisca Marks MD MD sd1 Cortney Delgado, Forensic Engineer Unit deg Gaurav Martinez Kathleen,RN RN kr3 Amy Bailey,RN RN jo3 Chloe, Ender, RN RN ml6 Corazon, Dee, THREAD MILLING MACHINE SET UP OPERATOR THREAD MILLING MACHINE SET UP OPERATOR ct3 Mariella Frias MTDD
--- NOTE | 2016-03-20 16:07 | REP ---
CT study of the abdomen and pelvis without IV or oral contrast: History: Septic shock. Comparison CT study February 12, 2016. CT findings: There is subsegmental discoid atelectasis in the lower lobes bilaterally. No pleural effusion is seen. The liver and the spleen are unremarkable. There is a moderate sized hiatal hernia again noted. The gallbladder is not seen consistent with surgical absence. There is no evidence of intra-abdominal abscess. No free air is seen. Small and large bowel loops are unremarkable. No hydronephrosis is seen. There is a Yee catheter and a little bit of air in the urinary bladder. No bony destructive lesion is seen. The patient is status post vertebroplasty at T12 and L1. Impression: No evidence of abscess, free air, obstruction, or other acute intra-abdominal abnormality. No significant change from the recent prior study of February 12, 2016. Signed by Sabino Greco MD 03/20/2016 04:53 P
[2016-03-20] MEDS ORDERED: MEROPENEM INJ 1 GM in D5W MINI-BAG PLUS 100 ML IV ONE (17:00)
[2016-03-20] MEDS ORDERED: NOREPINEPHRINE BITARTRATE 8 MG in D5W 500 ML IV SCH (17:00)
--- NOTE | 2016-03-20 17:03 | PHACANCOPD ---
PHARMACY VANCOMYCIN DOSING Pt Demographics Demographics Patient Age:89 , Weight:50.800 , Gender: female Adjusted Body Weight Events Past 24 Hours Events Past 24 Hours: NO: Change in CrCl, Dialysis, Diuretic Therapy, Elevation in WBC, Fever, Other, Pending Diagnostics, Pending Procedures Vancomycin Vancomycin Target Ranges: 15-20 mcg/ml Vancomycin Load Y/N: Yes Load Dose Date Time Vancomycin Load Dose: 1000 MG Date: 03/20/16 Time: 18:00 Vancomycin Dose Date: 03/21/16. Current Vancomycin Dose: [750MG IV Q24H @08:00] Intermittent Dosing?: No Labs Labs Laboratory Tests 03/20/16 10:14 Red Blood Count 4.73, Mean Corpuscular Volume 93.5, Mean Corpuscular Hemoglobin 29.8, Mean Corpuscular Hemoglobin Concent 31.9 L, Red Cell Distribution Width 14.3, Neutrophils (%) (Auto) 89.6 H, Lymphocytes (%) (Auto) 5.1 L, Monocytes (% ) (Auto) 3.7, Eosinophils (%) (Auto) 0.4, Basophils (%) (Auto) 0.6, Neutrophils # (Auto) 19.1 H, Lymphocytes # (Auto) 1.2 L, Monocytes # (Auto) 0.8, Eosinophils # (Auto) 0.1, Basophils # (Auto) 0.1 Micro Microbiology 03/20/16 Blood Culture, Received Pending 03/20/16 Blood Culture, Received Pending 03/20/16 MRSA Screen, Received Pending 03/20/16 Urine Culture, Received Pending Creatinine Clearance Date:03/20/16. Creatinine Clearance: [20ML/MIN]. SCR 1.54 [BASELINE SCR 1.02 (CrCl 30ml/min)] 02/07) Assessment and Plan Maintaining Current Dose?: Yes Reason for dose change: Other Pharmacist Note Pharmacist Note Date: 03/20/16. Pharm.D. note: 89YO FEMALE, 60" in HEIGHT, 50.8KG in WEIGHT, ADMITTED WITH SEPSIS. H&P NOT AVAILABLE AT THIS TIME. SHE IS ORDERED ON MEROPENEM AND VANCO. HER SCR ON ADMISSION = 1.54 (YEILDING A CALCULATED CRCL = 20ml/min; HER BASELINE SCR FROM JANUARY 2016 = 1.02 ( YEILDING A BASELINE CRCL = 30ml/min). THE HOSPITALIST WAS CALLED AND AGREED TO REDUCE THE MEROPENEM TO 1GM IV Q12H BASED ON HER REDUCED CRCL. WE WILL GIVE HER A LOADING DOSE OF VANCO 1GM IV @ 18:00 TONIGHT FOLLOWED BY 750MG IV Q24H STARTING 03/21/16 @ 08:00. A VANCO TROUGH HAS BEEN ORDERED WITH HER AM LABS ON 03/22/16 (6AM) PRIOR TO HER 08:00 DOSE. ADJUSTMENTS WILL BE MADE IF NECESSARY AT THAT TIME. ERICKSON, Pharm.D. [facility] Mar 20, 2016 17:03
[2016-03-20] MEDS ORDERED: VANCOMYCIN HCL 1,000 MG, VIAL MATE ADAPTER 1 EACH in D5W 250 ML IV ONE (18:00)
[2016-03-20] MEDS: PANTOPRAZOLE 40MG INJ (PROTONIX) (C9113) IV SCH (18:00)
--- NOTE | 2016-03-20 18:38 | REP ---
CT head without contrast: History: Altered mental status. Comparison: 02/15/2016 Areas of decreased attenuation are present in the periventricular and subcortical white matter. This represents small vessel ischemic disease. There is no intraparenchymal hemorrhage, mass or midline shift. The ventricular system and cortical sulci are dilated consistent with moderate volume loss. There is no extracerebral collection. Mucosal thickening is present in the left sphenoid sinus. IMPRESSION: 1. Small vessel ischemic disease. 2. Moderate volume loss. Signed by Emmett Estes MD 03/20/2016 06:39 P
--- NOTE | 2016-03-20 19:23 | CR ---
DATE OF CONSULTATION: 03/20/2016 REASON FOR CONSULTATION: Septic shock CONSULTING PHYSICIAN: Dr. Weldon. HISTORY OF PRESENT ILLNESS: Obtained from patient's daughter. Patient is a 89 year old female who's daughter brought her into the emergency department this morning at 7 a.m., due to a rectal temperature of 101.6 and low blood pressure of 70/50. The patient's daughter says that she was not feeling very good yesterday, was not engaging in her normal routine, did not nap yesterday, and was also awake the whole night two nights ago. The patient has a history of Clostridium (C.) difficile infection, and the patient's daughter says that the patient has been having non-formed stool without blood. Daughter describes bowel movements as ranging between a smear and small. Daughter denies patient having any strong or foul-smelling urine or urine discoloration. The patient does have a history of urinary tract infections. Daughter days that the patient has had a decreased appetite, was not interested in food last night for dinner, only ate yogurt and has not had anything to eat today. PAST MEDICAL HISTORY: 1. Asthma. 2. Venous stroke. 3. Frequent urinary tract infections. 4. C. difficile infection. 5. Dementia. 6. Deep venous thrombosis (DVT). 7. Pulmonary embolism. SURGICAL HISTORY: 1. Cholecystectomy. 2. Kyphoplasty times two. HOSPITALIZATIONS: Sepsis secondary to urinary tract infection January 2016, fever December 2015, sepsis September 2015, dehydration September 2014, confusion 2008. ALLERGIES: 1. PENICILLIN causes anaphylaxis. 2. ERYTHROMYCIN gastrointestinal upset. 3. FLAGYL skin rash and hives. 4. SEDATIVES respiratory depression. 5. FLUCONAZOLE unknown reaction. 6. ASPIRIN/NON-STEROIDAL ANTI-INFLAMMATORY DRUGS (NSAIDS), avoid due to asthma. CURRENT MEDICATIONS: - Xanax 0.25 mg by mouth every four hours as needed for anxiety - D5 normal saline at rate of 45 mL per hour - glucosamine 100 mg by mouth twice a day - Synthroid 0.75 mg by mouth daily - meropenem 1 gram intravenous (IV) every 12 hours - Remeron 45 mg by mouth at bedtime - norepinephrine drip - Nystatin powder topically to groin and under breasts twice a day - Zofran 4 mg IV every six hours as needed for nausea or vomiting - Protonix 40 mg IV every 24 hours - vancomycin 750 mg IV every 24 hours - warfarin 2 mg by mouth daily REVIEW OF SYSTEMS: Review of systems was obtained from the patient's daughter. GENERAL: Positive for fevers at home, temperature of 101.6 rectal. Positive for decreased appetite. LUNGS: Denies shortness of breath or difficulty breathing. ABDOMEN: Denies vomiting. INTEGUMENTARY: Positive for dry skin above ankles. Denies rashes, lesions or abrasions. LYMPHATICS: Denies swollen lymph nodes or palpable glands. OBJECTIVE: VITAL SIGNS: Temperature 94.8, pulse 79, respiratory rate 20, blood pressure 125/65, pulse oximetry 100%. GENERAL: The patient somnolent but awake, nonverbal. HEENT: Extraocular movement intact. Pupils equal, round, and reactive to light. HEART: Regular rate and rhythm. Normal S1, S2. No murmurs, rubs, clicks, or gallops. LUNGS: Clear to auscultation bilaterally. No wheezes, rales, or rhonchi. ABDOMEN: Active bowel sounds, soft, no masses to palpation. SACRUM: Positive for stage I decubitus ulcer. EXTREMITIES: No lower extremity swelling in either leg. VASCULAR: Radial and dorsalis pedis pulses are palpable bilaterally. LABORATORY DATA: CBC: White blood cells 21.3, hemoglobin and hematocrit 14.1 and 44.2, platelets 258. Chemistry: Sodium 141, potassium 4.5, chloride 106, carbon dioxide 27, BUN 24, creatinine 1.51, glucose 109, calcium 9.0. Liver profile: Total bilirubin 0.8, direct bilirubin 0.1, AST 20, ALT 21, and alkaline phosphatase 93. Total protein 7.5, albumin 3.4. Lactic acid is 2.7 at 1014. Repeat lactic acid at 1357 of 1.1. Cardiac markers: Troponin I 1.20 at 1014, repeat at 1357 of 0.8 C-reactive protein 4.64. Amylase 53. TSH 0.355, free T4 4.7. ABG: PH 7.411, pCO2 35.9, pO2 113.0, bicarbonate 22.3. Coagulation: PT 33.6, INR 3.31, PTT 47.0. Urinary tract infection: Color yellow, appearance hazy, pH 5.0, specific gravity 1.009, 1+ blood, 0.2 urobilinogen, trace leukocyte esterase, 5 white blood cells, 4 hyaline casts, 5 squamous epithelial cells. Negative for all of the following: Protein, glucose, ketones, nitrites, bilirubin, bacteria. MICROBIOLOGY: Blood cultures times two pending. Urine culture pending MRSA screen pending. Stool PCR for C. difficile from 03/19/2016: No C. difficile by PCR. BLOOD PRODUCTS: Two units of fresh frozen plasma (FFP) have been ordered. IMAGING: Chest x-ray: Moderate cardiomegaly. Otherwise no acute disease. Chest x-ray is status post placement of right central venous catheter with tip in right atrium, no pneumothorax. CT of abdomen and pelvis: No evidence of abscess, free air, obstruction or other acute intraabdominal abnormality. Head CT initial read: No acute disease. Official read pending. ASSESSMENT: The patient is an 89-year-old female with history of frequent urinary tract infections, Clostridium difficile infection, who was admitted with hypothermia leukocytosis and hypotension. PLAN: 1. Septic shock. The patient will continue on current antibiotics, meropenem 1 gram IV every 12 hours, vancomycin 750 mg IV every 24 hours. Urinalysis not suggestive of urinary tract infection. We will follow the results from urine culture when available. The patient does have a history of C. difficile infection, C. difficile polymerase chain reaction (PCR) from yesterday negative, patient not currently having any diarrhea, no indication at this time to treat with oral vancomycin. The patient has a negative chest x-ray. Due to patient's septic shock, no documented source of infection at this time, Dr. Weldon will be performing a lumbar puncture this evening to evaluate for possible meningitis, encephalitis. We will follow the result from blood cultures, urine culture, methicillin-resistant Staphylococcus aureus (MRSA) screen, and results from lumbar puncture once available. If patient does develop any diarrhea while hospitalized, a C. difficile PCR can be run at that time to check for recurrence of C. difficile infection. My preceptor for this patient encounter was Dr. Nickie Adler. The preceptor was physically present in the building during the encounter and was fully available as needed. All aspects of the patient interview, examination, medical decision making process, and medical care plan development were reviewed and approved by the preceptor. The preceptor is aware and concurs with the plan as stated in the body of this note and will attest to such by his/her co-signature. ANGELA
--- NOTE | 2016-03-20 19:28 | RO ---
DATE OF PROCEDURE: 03/20/2016 PREPROCEDURE DIAGNOSIS: Septic shock with encephalopathy. POSTPROCEDURE DIAGNOSIS: Septic shock with encephalopathy. PROCEDURE: Diagnostic lumbar puncture. SURGEON: Dr. Shandra Weldon ORTHODONTIST ASSISTANT: Intestine care unit (ICU) nurse Elizabeth. Resident Dr. Arpita Arango VENTILATION: 2 liters nasal cannula. SEDATION: None. ANESTHESIA: 1% local lidocaine. ESTIMATED BLOOD LOSS: Minimal. Patient was given 1 unit of frozen fresh plasma prior to the procedure. DESCRIPTION OF PROCEDURE: The patient was placed on right lateral decubitus position with back arched knees to the abdomen and chins to the chest. Anatomical landmark was located. 1% local lidocaine was first injected superficially, then deep injection was done. Subsequently, the needle was inserted. Cerebrospinal fluids (CSF) was obtained and fluid was collected. Subsequently the needle was removed. The patient tolerated the procedure with no complications.
--- NOTE | 2016-03-20 19:53 | RO ---
DATE OF PROCEDURE: 03/20/2016 PREPROCEDURE DIAGNOSIS: Septic shock. POSTPROCEDURE DIAGNOSIS: Septic shock. PROCEDURE: Right IJ triple lumen central line. SURGEON: Dr. Shandra Weldon PROGRAM/MUSIC DIRECTOR: [place] NurseAmy ANESTHESIA: 1% local lidocaine. ESTIMATED BLOOD LOSS: 10 mL. VENTILATION: 3 liters nasal cannula. SEDATION: None. DESCRIPTION OF PROCEDURE: The patient as placed in Trendelenburg position, right side of the patient's neck was cleaned with Chloraprep. The patient was prepped in a sterile manner. Ultrasound with sterile probe cover was used. 1% lidocaine was injected with ultrasound guidance. Subsequently, needle was inserted. Flash of blood was obtained. Wire was advanced through the needle and subsequently needle was removed. Wire position was confirmed with ultrasound. Subsequently, site was dilated, triple lumen central line was inserted over guidewire. Wire was removed and all three ports were flushed. The line was secured with clamps and three stitches. Dressing was placed. X-ray was ordered for confirmation of the line. The patient tolerated the procedure with no complications.
[2016-03-20 20:02] LABS: RBC CSF AUTO 57 /mm3 (0-0); WBC CSF AUTO 11 /mm3 (0-10)
[2016-03-20 20:03] LABS: APPEARANCE, CSF CLEAR (CLEAR); COLOR, CSF COLORLESS (COLORLESS); CSF DIFF IF INDICATED? YES (NO); CSF TUBE# CELL CNT TUBE 4
[2016-03-20 20:06] LABS: CSF DILUENT LOT # 6109
[2016-03-20] MEDS: LACOSAMIDE 50 MG TAB (VIMPAT) PO SCH (20:09)
[2016-03-20] MEDS: ALPRAZolam 0.25 MG TAB PO PRN ×2 (20:09→23:27)
[2016-03-20] MEDS: MIRTAZAPINE 15 MG TAB PO SCH (20:09)
[2016-03-20 20:12] LABS: GLUCOSE CSF 68 MG/DL (40-75)
--- NOTE | 2016-03-20 22:14 | HPE ---
DATE OF ADMISSION: 03/20/2016 PRIMARY CARE PROVIDER: Dr. Josef Calderon CHIEF COMPLAINT: Hypotension and fever. HISTORY OF PRESENT ILLNESS: This is an 89-year-old female patient, baseline minimal verbal, with advanced dementia, bed bound, cerebrovascular accident (CVA), bronchitis, deep vein thrombosis (DVT) with pulmonary embolism (PE), hearing loss, hypothyroidism, lumbar fracture, macular degeneration, osteoporosis, seizure disorder, a history of recurrent urinary tract infection (UTI), Enterococcus faecalis, was brought into the emergency room by family with noticed fever, increase in lethargy, and distress. As per family, she just does not seem like her normal self. Baseline patient takes pureed with thin liquid most of the time. Occasionally takes more solid food for breakfast and lunch. Limited history give patient is minimally verbal. As per family, recently treated for Clostridium (C) difficile. Last C. difficile on March 19 was negative. Treated with vancomycin for C. difficile. About six bowel movements, pretty loose, per day. No change in urine odor or consistency. Was febrile at home. Also hypotensive with systolic blood pressure down to 70s. Further history not possible. In the emergency room patient was hypotensive. Given 2 liters of intravenous (IV) fluids for fluid resuscitation. Triple-lumen central line placed in trauma bay 1, right internal jugular (IJ). Central venous pressure (CVP) was obtained to be 15 after about 2.5 liters of fluids. ALLERGIES: ASPIRIN, ERYTHROMYCIN, FLUCONAZOLE, METRONIDAZOLE, NSAID, PENICILLIN, pineapple. PAST MEDICAL HISTORY: 1. Bronchitis. 2. CVA. 3. Advanced dementia. 4. DVT/PE. 5. Hearing loss. 6. Hypothyroidism. 7. Lumbar fracture. 8. Macular degeneration. 9. Recurrent UTI. 10. Back pain. PAST SURGICAL HISTORY: Cholecystectomy. SOCIAL HISTORY: Quit smoking 50 years ago. Does not drink alcoholic beverages for a year. No illicit drug use. FAMILY HISTORY: Noncontributory. REVIEW OF SYSTEMS: Unable to obtain. HOME MEDICATIONS: - Xanax one to two tablets by mouth every 4 hours as needed - Vimpat 100 mg by mouth twice a day - Synthroid 75 mg by mouth daily - mirtazapine 45 mg by mouth at bedtime - nystatin powder topical twice a day - Coumadin 2.5 mg by mouth six times a week, through Jan[facility] VITAL SIGNS: Blood pressure 89/40, temperature 94.1, pulse 92, respirations 18, pulse oximetry 98% on room air. LABORATORY DATA: ABG 7.41, 35.1, 113, 22.3. WBC 21.3, hemoglobin and hematocrit 14.1/44.2, platelets 258. Chemistry: Sodium 141, potassium 4.5, chloride 106, bicarbonate 27, BUN 24, creatinine 1.5. Total CK 55, CK-MB index 5.8., troponin 1.2. C-reactive protein 4.6. Lactic acid 2.7. PHYSICAL EXAMINATION: GENERAL: Patient is sleeping. Lethargic. Minimally arousable. Withdraws to pain. Frail. HEENT: Normocephalic, atraumatic. PULMONARY: Bilaterally clear to auscultation. CARDIAC: Regular rate and rhythm. Normal S1, S2. ABDOMEN: Soft. No significant tenderness. Hypoactive bowel sounds. Doughy. Old scar noted. EXTREMITIES: No edema, bilateral lower extremities. Stage I decubitus ulcer noted. ASSESSMENT AND PLAN: This is an 89-year-old female patient with underlying medical history of severe dementia, asthma, chronic bronchitis, deep vein thrombosis (DVT), pulmonary embolism (PE), hypothyroidism, lumbar fracture, osteoporosis. Patient admitted for septic shock. Possible etiology Clostridium (C) difficile versus urinary tract infection (UTI) versus alternative sources. 1. Septic shock of unknown source. Infectious disease, Dr. Adler, consulted. Urinalysis (UA) appreciated. Followup blood culture, urine culture. X-rays appreciated. Patient on meropenem and vancomycin. Followup cultures. IV fluids, given total of 3 liters of IV fluids, normal saline. Started on Levophed for pressors. Followup central venous pressure (CVP). Followup lactic acid. Will obtain gastrointestinal (GI) panel to rule out C. difficile. Followup C-reactive protein. 3. History of recurrent UTI. Infectious disease, Dr. Adler, consulted. Followup cultures. Continue meropenem and vancomycin 2. History of chronic bronchitis. Patient not having any wheeze. Continue to follow. 3. Severe dementia. Patient nothing by mouth for now given patient lethargic. Will advance the diet as patient's mental status improves. Patient on pureed with thin liquid at home. Supportive care. Speech and swallow evaluation consulted. 4. Hypothyroidism. Continue Synthroid. Thyroid panel appreciated. 5. Constipation. Will continue to monitor. 6. Depression. Continue home medications. 7. Decubitus ulcers. Pressure offloading, wound care. 8. History of PE/DVT. Continue Coumadin. Patient with supratherapeutic INR. Followup INR. 9. Demand ischemia. EKG shows sinus rhythm 97 with T-wave inversion, V3-V6. Case discussed with Dr. Sutherland. Will get echocardiogram and lipid panel. Followup INR. If INR is reaching 227, will consider further antiplatelet agent, but there is significant risk of bleeding. Will followup lipid panel. If lipid panel elevated, will consider statin. 10. GI prophylaxis. Proton pump inhibitor (PPI), Protonix. 11. DVT prophylaxis. Patient on Coumadin with supratherapeutic INR. Continue to follow INR. DISPOSITION: Patient with multiple comorbidities. Poor underlying functional status. Poor long-term prognosis. Followup cultures, serial cardiac enzymes, GI panels, INR. Follow blood pressure. Advance diet as patient tolerates. Echocardiograms. Case discussed with Dr. Sutherland. Dr. Adler has also been consulted. Message left.
[2016-03-20] MEDS: ACYCLOVIR 500 MG in D5W MINI-BAG PLUS 100 ML IV SCH (22:52)
[2016-03-21] VITALS (19 sets, daily range): BP systolic 93–168; BP diastolic 52–88
[2016-03-21] MEDS: ACETAMINOPHEN TAB 650MG DOSE (2X325MG) PO PRN ×3 (01:31→23:47)
[2016-03-21] MEDS: MEROPENEM INJ 1 GM in D5W MINI-BAG PLUS 100 ML IV SCH ×2 (05:04→16:11)
[2016-03-21 05:36] LABS: MEAN CORPUSCULAR HEMOGLOBIN 30.3 pg (27.0-33.0); MEAN CORPUSCULAR HGB CONC 32.4 g/dl (32.0-36.5); MEAN CORPUSCULAR VOLUME 93.5 fl (80.0-96.0); RED CELL DISTRIBUTION WIDTH 14.5 % (11.5-14.5); WHITE BLOOD COUNT 14.7 K/mm3 (4.0-10.0)
[2016-03-21] MEDS: LEVOTHYROXINE 0.075 MG TAB (75 MCG) PO SCH (05:57)
[2016-03-21] MEDS: ACYCLOVIR 500 MG in D5W MINI-BAG PLUS 100 ML IV SCH ×3 (05:57→21:13)
[2016-03-21 05:58] LABS: INR 2.4
[2016-03-21 06:09] LABS: GLOMERULAR FILTRATION RATE 55.7 (>32); MAGNESIUM LEVEL 1.7 MG/DL (1.8-2.4); POTASSIUM SERUM 3.9 MEQ/L (3.5-5.1)
[2016-03-21 06:20] LABS: CALCIUM LEVEL 7.4 MG/DL (8.8-10.2)
[2016-03-21] MEDS ORDERED: MAG SULF 1GM/100ML (MAG RUN) 1 GM in APPROPRIATE DILUENT 1 EA IV ONE (07:00)
--- NOTE | 2016-03-21 07:17 | ECGEPIP ---
Stationary ECG Study 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
[2016-03-21] MEDS: VANCOMYCIN HCL 750 MG, VIAL MATE ADAPTER 1 EACH in D5W 250 ML IV SCH (08:38)
[2016-03-21] MEDS: LACOSAMIDE 50 MG TAB (VIMPAT) PO SCH ×2 (08:39→21:05)
[2016-03-21] MEDS: NYSTATIN 100,000 UNITS/GM TOPICAL PWD 15 GM TOP SCH ×2 (09:00→21:00)
[2016-03-21] MEDS: ALPRAZolam 0.25 MG TAB PO PRN ×4 (09:29→23:08)
--- NOTE | 2016-03-21 12:40 | IPNPDOC ---
Assessment/Plan Date Seen The patient was seen on 03/21/16. Problems Problems: (1) Septic shock Status: Resolved Problem Text: no source of infection identified. will continue with meropenum and vancomycin and acyclovir did not require levophed , responded to iv fluids. 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 Problem Text: continue coumadin , inr therapeutic (3) Hypothyroidism Status: Chronic Problem Text: continue synthroid (4) Seizure disorder Status: Chronic (5) Dementia Status: Chronic Problem Text: at baseline complete assist can move from bed to WC then to sofa with assist, needs assistance with all meals eats thin liquids and mechanical soft diet at home sometime pureed diet (6) Anxiety Status: Chronic Plan / VTE VTE Prophylaxis Ordered?: Yes Subjective Review of Systems CC/HPI The patient is a 89-year-old female admitted with a reason for visit of Septic Shock. Events since last encounter remains lethargic but was awake in the am and participated with swallow evaluation. Objective Physical Examination General Exam: Positive: Other (lethargic) Eye Exam: Positive: Conjunctiva & lids normal, EOMI ENT Exam: Positive: Atraumatic Neck Exam: Positive: Supple Chest Exam: Positive: Clear to auscultation Heart Exam: Positive: Normal S1, Normal S2, Rate Normal Telemetry: Positive: No significant arrhythmia Abdomen Exam: Positive: Normal bowel sounds, Soft Extremity Exam: Positive: Normal pulses, Negative: Clubbing, Cyanosis, Edema Vital Signs/I&O Vital Signs Date Time Temp Pulse Resp B/P Pulse Ox O2 Delivery O2 Flow Rate FiO2 03/21/16 11:00 98.4 102 20 132/60 97 Nasal Cannula 2.0 I&O- Last 24 Hours up to 6 AM 03/21/16 06:00 Intake Total 3000 ml Output Total 980 ml Balance 2020 ml Laboratory Data Labs 24H Laboratory Tests 2 03/20/16 13:52: Bedside Glucose (Misc Panel) 94 03/20/16 13:57: Creatine Kinase MB 3.1, Creatine Kinase MB Relative Index 6.20H, Lactic Acid Level 1.1, Total Creatine Kinase 50, Troponin I 0.80#H 03/20/16 19:17: CSF Appearance CLEAR, CSF Cell Count Tube # TUBE 4, CSF Color COLORLESS, CSF Eosinophils % 0.0, CSF Glucose 68, CSF Lymphocytes % 98.0H, CSF Monocytes % 2.0H , CSF Neutrophils % 0.0, CSF RBC 57H, CSF Total Protein 58.2H, CSF Tube Number TUBE 2, CSF WBC 11H 03/20/16 20:08: Creatine Kinase MB 4.4H, Creatine Kinase MB Relative Index 4.58H, Lactic Acid Level 1.3, Total Creatine Kinase 96#, Troponin I 0.42#H 03/21/16 05:07: Anion Gap 9, C-Reactive Protein, Quantitative 12.10H, Calcium Level 7.4#L, Triglycerides Level 93, Cholesterol Level 143, HDL Cholesterol 44, LDL Cholesterol 80.4, Cholesterol/HDL Ratio 3.250, Glomerular Filtration Rate 55.7, Magnesium Level 1.7L, Non-HDL Cholesterol (LDL + VLDL) 99, Prothromb Time International Ratio 2.40, Prothrombin Time 26.2H CBC/BMP Laboratory Tests 03/21/16 05:07 Red Blood Count 3.26 L, Mean Corpuscular Volume 93.5, Mean Corpuscular Hemoglobin 30.3, Mean Corpuscular Hemoglobin Concent 32.4, Red Cell Distribution Width 14.5 FSBS Laboratory Tests Test 03/20/16 13:52 Range/Units Bedside Glucose (Misc Panel) 94 83-110 MG/DL Microbiology Microbiology 03/21/16 Blood Culture, Received Pending 03/21/16 Blood Culture, Received Pending 03/20/16 Blood Culture - Preliminary, Resulted No growth after 24 hours . All specim... 03/20/16 Blood Culture - Preliminary, Resulted No growth after 24 hours . All specim... 03/20/16 , Received Pending 03/20/16 Acid Fast Stain, Received Pending 03/20/16 Mycobacterial Culture, Received Pending 03/20/16 Gram Stain - Final, Resulted 03/20/16 CSF Culture, Resulted Pending 03/20/16 MRSA Screen, Received Pending 03/20/16 Urine Culture, Received Pending AGNIESZKA HARDING MD Mar 21, 2016 12:40
[2016-03-21] MEDS: PANTOPRAZOLE 40MG INJ (PROTONIX) (C9113) IV SCH (16:11)
[2016-03-21] MEDS: WARFARIN SOD 2 MG TAB PO SCH (16:11)
--- NOTE | 2016-03-21 20:13 | ECHO ---
DATE OF PROCEDURE: 03/21/2016 REFERRING PHYSICIAN: Shandra Weldon MD PATIENT LOCATION: Room 3209 REASON FOR ECHOCARDIOGRAM: Heart failure, unspecified. 2D MEASUREMENTS: IVS: 1.2 cm LV: 4.5 cm LVPW: 1.2 cm LA: 4.0 cm Aorta: 3.5 cm IVC: 1.12 cm DOPPLER MEASUREMENTS: Peak velocity across the aortic valve: 1.2 m/s Peak velocity across the LVOT: 0.8 m/s Mitral E: 1.1 Maximum tricuspid valve velocity: 2.8 m/s 2D COMMENTS: 1. Technically very limited study due to poor acoustic window. 2. The left ventricular size is normal as well as left ventricular wall thickness. Left ventricular systolic function appeared to be normal, estimated at 60%. The apex in limited views, particularly the apical septum appeared to be mildly hypokinetic. 3. Borderline enlarged left atrium. Normal right atrium and right ventricle noted in limited views. 4. Normal aortic root. 5. Small pericardial effusion noted, no evidence of cardiac tamponade. 6. Mildly calcified aortic valve with normal leaflet excursion. Mildly calcified mitral annulus with normal anterior mitral valve leaflet motion. Normal tricuspid valve. The pulmonic valve and proximal pulmonary artery branches were not well visualized. 7. The inferior vena cava appeared to be normal in size in limited views. DOPPLER: It detects trace mitral regurgitation and trace to mild tricuspid regurgitation. The calculated pulmonary artery systolic pressure varies between 30 to 40 mmHg. Assessment of the left ventricular diastolic function appeared to be limited by artifact. IMPRESSION: 1. Normal global left ventricular systolic function. There may be regional wall motion abnormalities involving the apical septum and the apex in limited views. 2. Aortic valve sclerosis without stenosis or aortic regurgitation. 3. Mitral annulus calcification with trace mitral regurgitation. 4. Trace to mild tricuspid regurgitation with mild pulmonary hypertension. 5. Small pericardial effusion noted, no evidence of cardiac tamponade. 6. The study was technically limited due to poor acoustic window. ESTEPHANIAD
[2016-03-21] MEDS: MIRTAZAPINE 15 MG TAB PO SCH (21:05)
[2016-03-21] MEDS: VANCOMYCIN ORAL SOL 250MG/5ML ORAL SYRINGE PO SCH (23:07)
--- NOTE | 2016-03-21 23:27 | IPN ---
DATE: 03/21/2016 Izabela seems to be doing a little better today. She is not as lethargic. She has been eating her breakfast and lunch with assistance of her daughter. She does not have any nausea, vomiting or cough. Her temperature is 100. She is no longer hypothermic. She has not had any diarrhea but had some smearing on her pull-up only once. She has a Yee catheter. Urine is clear. PHYSICAL EXAMINATION: Temperature is 100, pulse 108, respirations 20, blood pressure 156/82, oxygen saturation 97% on room air. Heart: Normal S1, S2, distant. Lungs are diminished at the bases but clear. Abdomen is soft, nontender. No hepatosplenomegaly. Extremities: No clubbing, cyanosis or edema. Oropharynx: Dry mucosa. IMPRESSION: 1. Septic shock. So far the only abnormalitieswas fever and hypotension , blood culture have been negative, two sets after 24 hours. Urine culture is pending. CSF cultures are pending. CSF had slightly elevated white cells with 11 white cells, 98% lymphocytes and 58% total protein that may be suggestive of encephalitis, most likely enterovirus or herpes as the patient has a history of herpes oralis. Continue with acyclovir at the dose of 500 mg every 8 hours. Meropenem and vancomycin as well. If blood cultures and urine culture tomorrow are negative, I would suggest discontinuing antibiotics. 2. History of Clostridium difficile colitis. Vancomycin will be restarted at 125 mg by mouth twice a day as the patient is at very high risk of recurrence with broad-spectrum antibiotics. Will keep here at a twice a day dosing for prophylaxis to prevent recurrence. Also would suggest adding probiotics if she is tolerating by mouth. PLAN: If cultures remain negative tomorrow, discontinue vancomycin and meropenem. Continue with acyclovir until results of the herpes and CSF panel are available. MTDD
[2016-03-22] VITALS (20 sets, daily range): BP systolic 102–178; BP diastolic 54–86
[2016-03-22] MEDS: MEROPENEM INJ 1 GM in D5W MINI-BAG PLUS 100 ML IV SCH ×2 (04:30→17:21)
[2016-03-22 04:37] LABS: MEAN CORPUSCULAR HEMOGLOBIN 29.8 pg (27.0-33.0); MEAN CORPUSCULAR HGB CONC 32.3 g/dl (32.0-36.5); MEAN CORPUSCULAR VOLUME 92.2 fl (80.0-96.0); RED CELL DISTRIBUTION WIDTH 14.5 % (11.5-14.5); WHITE BLOOD COUNT 14.2 K/mm3 (4.0-10.0)
[2016-03-22 04:48] LABS: INR 2.7
[2016-03-22 05:05] LABS: CALCIUM LEVEL 7.8 MG/DL (8.8-10.2); CREATININE FOR GFR 1.05 MG/DL (0.55-1.02); GLOMERULAR FILTRATION RATE 52.7 (>32); POTASSIUM SERUM 3.9 MEQ/L (3.5-5.1)
[2016-03-22] MEDS: ACYCLOVIR 500 MG in D5W MINI-BAG PLUS 100 ML IV SCH ×3 (05:17→21:17)
[2016-03-22] MEDS: LEVOTHYROXINE 0.075 MG TAB (75 MCG) PO SCH (05:18)
--- NOTE | 2016-03-22 06:05 | PHACANCOPD ---
PHARMACY VANCOMYCIN DOSING Pt Demographics Demographics Patient Age:89 , Weight:55.400 , Gender: female Adjusted Body Weight Vancomycin Vancomycin Target Ranges: 15-20 mcg/ml Vancomycin Load Y/N: Yes Load Dose Date Time Vancomycin Load Dose: 1000 MG Date: 03/20/16 Time: 18:00 Vancomycin Dose Date: 03/21/16. Current Vancomycin Dose: [750MG IV Q24H @08:00] Intermittent Dosing?: No Labs Labs SCR SLIGHT RISE TO 1.05 TODAY (03/22) Micro Microbiology 03/21/16 Blood Culture - Preliminary, Resulted No growth after 24 hours . All specim... 03/21/16 Blood Culture - Preliminary, Resulted No growth after 24 hours . All specim... 03/20/16 Blood Culture - Preliminary, Resulted No growth after 24 hours . All specim... 03/20/16 Blood Culture - Preliminary, Resulted No growth after 24 hours . All specim... 03/20/16 , Received Pending 03/20/16 Acid Fast Stain, Received Pending 03/20/16 Mycobacterial Culture, Received Pending 03/20/16 Gram Stain - Final, Resulted 03/20/16 CSF Culture, Resulted Pending 03/21/16 Influenza Virus Type A Antigen - Final, Complete 03/21/16 Influenza Virus Type B Antigen - Final, Complete 03/20/16 MRSA Screen, Received Pending 03/20/16 Urine Culture, Received Pending Creatinine Clearance Date:03/20/16. Creatinine Clearance: [20ML/MIN]. SCR 1.54 [BASELINE SCR 1.02 (CrCl 30ml/min)] 02/07) Assessment and Plan Maintaining Current Dose?: Yes Reason for dose change: No Dose Change Pharmacist Note Pharmacist Note Date: 03/22/16. Pharmacist notE:Vancomycin trough drawn this morning @0429= reported as 13.8:-will maintain Vanco regimen of 750mg Q24H for now-(scr has risen slightly)Ryan continue to monitor levels and SCR Date: 03/20/16. Pharm.D. note: 89YO FEMALE, 60" in HEIGHT, 50.8KG in WEIGHT, ADMITTED WITH SEPSIS. H&P NOT AVAILABLE AT THIS TIME. SHE IS ORDERED ON MEROPENEM AND VANCO. HER SCR ON ADMISSION = 1.54 (CARLITAING A CALCULATED CRCL = 20ml/min; HER BASELINE SCR FROM JANUARY 2016 = 1.02 ( YEILDING A BASELINE CRCL = 30ml/min). THE HOSPITALIST WAS CALLED AND AGREED TO REDUCE THE MEROPENEM TO 1GM IV Q12H BASED ON HER REDUCED CRCL. WE WILL GIVE HER A LOADING DOSE OF VANCO 1GM IV @ 18:00 TONIGHT FOLLOWED BY 750MG IV Q24H STARTING 03/21/16 @ 08:00. A VANCO TROUGH HAS BEEN ORDERED WITH HER AM LABS ON 03/22/16 (6AM) PRIOR TO HER 08:00 DOSE. ADJUSTMENTS WILL BE MADE IF NECESSARY AT THAT TIME. ERICKSON, Pharm.D. [facility] Mar 22, 2016 06:05
[2016-03-22] MEDS: VANCOMYCIN HCL 750 MG, VIAL MATE ADAPTER 1 EACH in D5W 250 ML IV SCH (07:41)
[2016-03-22] MEDS: LACOSAMIDE 50 MG TAB (VIMPAT) PO SCH ×2 (08:56→21:16)
[2016-03-22] MEDS: LACTOBACILLUS ACIDOPHILUS CAP (BACID) PO SCH ×2 (08:56→21:16)
[2016-03-22] MEDS: VANCOMYCIN ORAL SOL 250MG/5ML ORAL SYRINGE PO SCH ×2 (08:56→21:16)
--- NOTE | 2016-03-22 09:12 | IPNPDOC ---
Assessment/Plan Date Seen The patient was seen on 03/22/16. Problems Problems: (1) Septic shock Status: Acute Problem Text: no source of infection identified. will continue with meropenum and vancomycin and acyclovir . If cultures remain negative today will dc meropenem and vancomycin tomorrow am, will continue acyclovir. With slightly high protein may have viral encephalitis. did not require levophed , responded to iv fluids. 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 Problem Text: continue coumadin , inr therapeutic (3) Hypothyroidism Status: Chronic Problem Text: continue synthroid (4) Seizure disorder Status: Chronic (5) Dementia Status: Chronic Problem Text: at baseline complete assist can move from bed to WC then to sofa with assist, needs assistance with all meals eats thin liquids and mechanical soft diet at home sometime pureed diet (6) Anxiety Status: Chronic Plan / VTE VTE Prophylaxis Ordered?: Yes Plan / Urinary Catheter Reason for insertion/continuin: Critical Pt monitoring Subjective Review of Systems CC/HPI The patient is a 89-year-old female admitted with a reason for visit of Septic Shock. Events since last encounter patient had good oral intake yesterday , had low grade fever this am , has stool incontinence little at a time multiple times, n nausea or vomiting , no abdominal pain. Objective Physical Examination General Exam: Positive: Other (lethargic) Eye Exam: Positive: Conjunctiva & lids normal, EOMI ENT Exam: Positive: Atraumatic Neck Exam: Positive: Supple Chest Exam: Positive: Clear to auscultation Heart Exam: Positive: Normal S1, Normal S2, Rate Normal Telemetry: Positive: No significant arrhythmia Abdomen Exam: Positive: Normal bowel sounds, Soft Extremity Exam: Positive: Normal pulses, Negative: Clubbing, Cyanosis, Edema Vital Signs/I&O Vital Signs Date Time Temp Pulse Resp B/P Pulse Ox O2 Delivery O2 Flow Rate FiO2 03/22/16 06:00 104 18 149/64 94 Nasal Cannula 1.0 03/22/16 04:00 99.7 I&O- Last 24 Hours up to 6 AM 03/22/16 06:00 Intake Total 1350 ml Output Total 2240 ml Balance -890 ml Laboratory Data Labs 24H Laboratory Tests 2 03/22/16 04:29: Anion Gap 10, C-Reactive Protein, Quantitative 11.40H, Blood Urea Nitrogen 13, Creatinine 1.05H, Sodium Level 145, Potassium Level 3.9, Chloride Level 113H, Carbon Dioxide Level 22, Calcium Level 7.8L, Glomerular Filtration Rate 52.7, Magnesium Level 2.0, Prothromb Time International Ratio 2.70, Prothrombin Time 28.7H, Vancomycin Level Trough 13.8 CBC/BMP Laboratory Tests 03/22/16 04:29 Calcium Level 7.8 L, Red Blood Count 3.74 L, Mean Corpuscular Volume 92.2, Mean Corpuscular Hemoglobin 29.8, Mean Corpuscular Hemoglobin Concent 32.3, Red Cell Distribution Width 14.5 Microbiology Microbiology 03/21/16 Blood Culture - Preliminary, Resulted No growth after 24 hours . All specim... 03/21/16 Blood Culture - Preliminary, Resulted No growth after 24 hours . All specim... 03/20/16 Blood Culture - Preliminary, Resulted No growth after 24 hours . All specim... 03/20/16 Blood Culture - Preliminary, Resulted No growth after 24 hours . All specim... 03/20/16 , Received Pending 03/20/16 Acid Fast Stain, Received Pending 03/20/16 Mycobacterial Culture, Received Pending 03/20/16 Gram Stain - Final, Resulted 03/20/16 CSF Culture, Resulted Pending 03/21/16 Influenza Virus Type A Antigen - Final, Complete 03/21/16 Influenza Virus Type B Antigen - Final, Complete 03/20/16 MRSA Screen - Final, Complete 03/20/16 Urine Culture - Final, Complete AGNIESZKA HARDING MD Mar 22, 2016 09:12
[2016-03-22] MEDS: NYSTATIN 100,000 UNITS/GM TOPICAL PWD 15 GM TOP SCH ×2 (10:27→21:17)
[2016-03-22] MEDS: ALPRAZolam 0.25 MG TAB PO PRN ×3 (11:09→21:15)
--- NOTE | 2016-03-22 16:30 | EDDOCDS ---
Physician Documentation [facility] Name: Izabela Tovar Age: 89 yrs Sex: Female : 1925 Arrival Date: 03/20/2016 Time: 10:00 Bed 1 Private MD: Disposition: 03/20/16 11:50 Hospitalization ordered by Shandra Weldon for Inpatient Admission. Preliminary diagnosis is Sepsis, unspecified organism. - Bed requested for M ICU. - Status is Inpatient Admission. deg - Condition is Stable. - Problem is new. - Symptoms are unchanged. Historical: - Allergies: Aspirin; Erythromycin; Flagyl; PENICILLINS; Pineapple; Sedatives; - Home Meds: 1. Coumadin 2.5 mg Oral tab once daily every day except Wed 2. mirtazapine 45 mg Oral tab 1 tab nightly 3. Synthroid 75 mcg Oral tab 1 tab once daily (Last dose: 03/20/2016 09:00) 4. Vimpat 100 mg oral tab 1 tab 2 times per day 0900, 2000 (Last dose: 03/20/2016 09:00) 5. Xanax 0.25mg to 0 .5 mg as needed Oral tab 1 tab two times per day as needed 0.25mg dose 0900, 0.25mg dose at 1430, 0.25mg dose 1700, 0.5mg dose at 1900 - PMHx: Asthma; Bronchitis; CVA; Dementia; DVT; hearing loss; Hypothyroidism; lumbar fractures; Macular Degeneration; Osteoporosis; PE; Seizures; C-diff; UTI's, Frequent; - PSHx: Cholecystectomy; back surgery; - Social history: Smoking status: Patient states former smoker of tobacco. . - Family history: Not pertinent. - : The pt / caregiver states he / she is on anticoagulants: coumadin. Home medication list is obtained from family members. - Exposure Risk Screening:: None identified. Vital Signs: 03/20 09:59 BP 93 / 53 (auto/); jo3 10:01 Pulse Ox 93% ; jo3 10:13 Pulse 97 MON; Pulse Ox 96% ; jo3 10:13 BP 100 / 55 (auto/); jo3 10:20 BP 100 / 55; Pulse 92; Resp 18; Temp 98.2(TE); Pulse Ox 98% on R/A; dem1 10:23 BP 106 / 71 (auto/); jo3 10:23 Pulse 93 MON; Pulse Ox 96% ; jo3 10:25 BP 101 / 56 (auto/); jo3 10:25 Pulse 92 MON; Pulse Ox 94% ; jo3 10:30 BP 107 / 54 (auto/); jo3 10:30 Pulse 90 MON; Pulse Ox 94% ; jo3 10:31 Weight 50.8 kg / 111.99 lbs; Height 5 ft. 0 in. (152.40 cm); jo3 10:40 BP 93 / 55 (auto/); jo3 10:40 Pulse 88 MON; Pulse Ox 72% ; jo3 10:50 BP 100 / 56 (auto/); jo3 10:50 Pulse 85 MON; Pulse Ox 99% ; jo3 11:00 BP 102 / 11 (auto/); jo3 11:00 Pulse 86 MON; Pulse Ox 98% ; jo3 11:06 BP 94 / 55 (auto/); jo3 11:06 Pulse 85 MON; Pulse Ox 98% ; jo3 11:22 BP 97 / 50 (auto/); jo3 11:22 Pulse 85 MON; Pulse Ox 98% ; jo3 11:31 BP 95 / 49 (auto/); jo3 11:31 Pulse 83 MON; Pulse Ox 98% ; jo3 11:45 BP 78 / 39 (auto/); jo3 11:45 Pulse 81 MON; Pulse Ox 98% ; jo3 11:51 BP 78 / 43 (auto/); jo3 11:51 Pulse 80 MON; Pulse Ox 98% ; jo3 11:52 BP 79 / 43 (auto/); jo3 11:52 Pulse 80 MON; Pulse Ox 98% ; jo3 11:58 BP 87 / 49 (auto/); jo3 11:58 Pulse 82 MON; Pulse Ox 98% ; jo3 12:00 BP 87 / 49 (auto/); jo3 12:00 Pulse 80 MON; Pulse Ox 99% ; jo3 12:32 BP 85 / 50 (auto/); jo3 12:32 Pulse 80 MON; Pulse Ox 94% ; jo3 12:42 BP 87 / 54 (auto/); jo3 12:42 Pulse 79 MON; Pulse Ox 94% ; jo3 12:50 BP 93 / 56 (auto/); jo3 12:50 Pulse 78 MON; Pulse Ox 86% ; jo3 12:58 BP 91 / 52 (auto/); jo3 12:58 Pulse 78 MON; Pulse Ox 99% ; jo3 13:00 BP 99 / 54 (auto/); jo3 13:00 Pulse 79 MON; Pulse Ox 98% ; jo3 13:15 BP 112 / 64 (auto/); jo3 13:15 Pulse 78 MON; Pulse Ox 97% ; jo3 13:19 ml6 13:30 BP 83 / 44 (auto/); jo3 13:30 Pulse 76 MON; Pulse Ox 95% ; jo3 13:36 BP 80 / 41 (auto/); jo3 13:36 Pulse 75 MON; Pulse Ox 94% ; jo3 13:42 BP 101 / 59 (auto/); jo3 13:42 Pulse 76 MON; Pulse Ox 97% ; jo3 13:45 BP 95 / 53 (auto/); jo3 13:45 Pulse 76 MON; Pulse Ox 98% ; jo3 13:45 Temp 94.5(R); jo3 14:00 BP 92 / 55 (auto/); jo3 14:00 Pulse 75 MON; Pulse Ox 98% ; jo3 14:15 BP 91 / 55 (auto/); jo3 14:15 Pulse 75 MON; Pulse Ox 99% ; jo3 14:30 BP 94 / 52 (auto/); jo3 14:30 Pulse 74 MON; Pulse Ox 97% ; jo3 14:45 BP 92 / 51 (auto/); jo3 14:45 Pulse 74 MON; Pulse Ox 98% ; jo3 15:00 BP 103 / 57 (auto/); jo3 15:00 Pulse 72 MON; Pulse Ox 100% ; jo3 15:13 BP 102 / 59 (auto/); jo3 15:13 Pulse 72 MON; Pulse Ox 99% ; jo3 15:15 BP 112 / 64 (auto/); jo3 15:15 Pulse 71 MON; Pulse Ox 100% ; jo3 10:31 Body Mass Index 21.87 (50.80 kg, 152.40 cm) jo3 13:19 CVP 15 ml6 13:45 Wrapped in warm blankets at this time jo3 MDM: 10:04 -Blood Culture (Adults Only), peripheral from different site, or from device/port/PICC sd1 etc. if present ordered. 10:04 Call Respiratory ordered. sd1 10:04 Home Based Assistant/Pulse Ox/q 15 min VS ordered. sd1 10:04 Large bore IV x 2 ordered. sd1 10:04 Oxygen at 4L/Min NC or Home dosage ordered. sd1 10:04 Set up for triple lumen central Iine placement ordered. sd1 10:04 Intake and Output Hourly ordered. sd1 10:04 NS 0.9% (Sepsis- hypotension or lactate >4mmol/L, 30ml/kg) 30 ml/kg IV at bolus once; sd1 Give in 500mL aliquots, assess for rales after each, 2 L ordered. 10:04 cefTRIAXone 2 grams IVPB once over 30 mins; dilute in 50mL of NS or D5W ordered. sd1 10:05 Type & Screen Ordered. EDMS 10:06 -Arterial Blood Gas Ordered. EDMS 10:06 Amylase Ordered. EDMS 10:06 C Reactive Protein Ordered. EDMS 10:06 CBC with Diff Ordered. EDMS 10:06 Lactic Acid (Heaton tube on ice) Ordered. EDMS 10:06 Liver Profile Ordered. EDMS 10:06 MED Profile Ordered. EDMS 10:06 PT/INR Ordered. EDMS 10:06 PTT Ordered. EDMS 10:06 Urinalysis Ordered. EDMS 10:06 -Blood Culture Ordered. EDMS 10:06 Urine Culture Ordered. EDMS 10:06 Chest, 1 View Ordered. EDMS 10:07 ECG WITH READING ER PHYS+CARDIAG ordered. EDMS 10:07 BED REQUEST+ADM ordered. EDMS 10:19 -Blood Culture (Adults Only), peripheral from different site, or from device/port/PICC deg etc. if present complete. 10:20 Call Respiratory complete. deg 10:21 BLOOD CULTURES Ordered. EDMS 11:18 -Arterial Blood Gas Reviewed. sd1 11:18 C Reactive Protein Reviewed. sd1 11:18 CBC with Diff Reviewed. sd1 11:18 Lactic Acid (Heaton tube on ice) Reviewed. sd1 11:18 Liver Profile Reviewed. sd1 11:18 MED Profile Reviewed. sd1 11:18 PT/INR Reviewed. sd1 11:18 PTT Reviewed. sd1 11:18 Amylase Reviewed. sd1 11:18 Type & Screen Reviewed. sd1 11:35 Chest, 1 View Reviewed. sd1 11:50 Repeat EKG (put time details section) ordered. sd1 12:25 portable chest Ordered. EDMS 12:27 Financial registration complete. lg 12:42 Repeat EKG (put time details section) complete. deg 12:43 ECG WITH READING ER PHYS ordered. EDMS 12:57 NPO DIET ordered. EDMS 12:57 CARDIAC MARKER PANEL Ordered. EDMS 12:57 CARDIAC MARKER PANEL Ordered. EDMS 12:58 LACTIC ACID LEVEL, LACTATE Ordered. EDMS 12:58 LACTIC ACID LEVEL, LACTATE Ordered. EDMS 12:58 GASTROINTESTINAL (GI) PANEL Ordered. EDMS 13:06 Admission / Observation Status ordered. EDMS 13:06 ECHOCARD,DOPPLER/COLOR FLOW ordered. EDMS 15:14 CT ABD & PELVIS W/O CONTRAST Ordered. EDMS 15:53 PR-EM Payment Agreement was scanned into [employer] and attached to record. lg 03/21 10:55 T-Sheet-- Draft Copy was scanned into [employer] and attached to record. gb 10:55 ECG/EKG was scanned into [employer] and attached to record. gb 10:55 Consents was scanned into [employer] and attached to record. gb 10:56 [place] Protocol was scanned into [employer] and attached to record. gb Administered Medications: 03/20 10:18 Drug: cefTRIAXone 2 grams [ceftriaxone 1 gram solution for injection] Route: IVPB; kr3 Infused Over: 30 mins; Site: right forearm; 10:39 Drug: NS 0.9% (Sepsis- hypotension or lactate >4mmol/L, 30ml/kg) 1524 ml [sodium jo3 chloride 0.9 % intravenous solution] Route: IV; Rate: bolus; Site: right forearm; 12:00 Follow up: IV Status: Completed infusion jo3 Signatures: Dispatcher [employer] EDFrancisca Lubin MD MD sd1 Cortney Delgado, All Source Collection Manager Unit deg Dorcas Hassan, Reg Reg gb Brittany Rodriguez, Reg Reg lg Amy Bailey RN RN jo3 Puneet Mena RN RN sa Robie, Kathleen RN kr3 The chart was reviewed and I authenticate all verbal orders and agree with the evaluation and treatment provided.Corrections: (The following items were deleted from the chart) 11:42 11:37 CARDIAC INJURY PROFILE+LAB ordered. EDSD EDMS 11:42 11:38 TROPONIN+LAB ordered. EDMS EDMS 11:42 11:40 THYROID PROFILE+LAB ordered. EDMS EDMS 12:58 12:55 GASTROINTESTINAL (GI) PANEL ordered. EDMS EDMS Attachments: 15:53 [facility] Payment Agreement lg 03/21 10:55 T-Sheet-- Draft Copy gb 10:55 ECG/EKG gb Chart Complete MTDD
--- NOTE | 2016-03-22 16:30 | EDDOCDS ---
Nurse's Notes [facility] Name: Izabela Tovar Age: 89 yrs Sex: Female : 1925 Arrival Date: 03/20/2016 Time: 10:00 Bed 1 Private MD: Diagnosis: Sepsis, unspecified organism Presentation: 03/20 10:24 Presenting complaint: Child states: Treating for c-diff. Has had increasing AMS jo3 throughout the morning. Spiking fevers at home. The last date and time the patient was known to be well was was at an unknown time on March 20, 2016. An acute neurological deficit is present. The charge nurse has been notified. The patient has been moved to a treatment area. Adult Sepsis Screening: Patient has new or worsening altered mentation (1 point). Patient's respiratory rate is less than 22. Systolic blood pressure is less than or equal to 100 (1 point). Patient has a qSOFA score of 2. Suicide/Homicide risk assessment- the patient denies having any suicidal and/or homicidal ideations and does not present with any other emotional, behavioral or mental health complaints. Status: Patient is not a coordinator of genetic services or dependent. Transition of care: patient was not received from another setting of care. 10:24 Acuity: NIC Level 2 jo3 10:24 Method Of Arrival: Walkin/Carried/Asstd jo3 Historical: - Allergies: Aspirin; Erythromycin; Flagyl; PENICILLINS; Pineapple; Sedatives; - Home Meds: 1. Coumadin 2.5 mg Oral tab once daily every day except Wed 2. mirtazapine 45 mg Oral tab 1 tab nightly 3. Synthroid 75 mcg Oral tab 1 tab once daily (Last dose: 03/20/2016 09:00) 4. Vimpat 100 mg oral tab 1 tab 2 times per day 0900, 2000 (Last dose: 03/20/2016 09:00) 5. Xanax 0.25mg to 0 .5 mg as needed Oral tab 1 tab two times per day as needed 0.25mg dose 0900, 0.25mg dose at 1430, 0.25mg dose 1700, 0.5mg dose at 1900 - PMHx: Asthma; Bronchitis; CVA; Dementia; DVT; hearing loss; Hypothyroidism; lumbar fractures; Macular Degeneration; Osteoporosis; PE; Seizures; C-diff; UTI's, Frequent; - PSHx: Cholecystectomy; back surgery; - Social history: Smoking status: Patient states former smoker of tobacco. . - Family history: Not pertinent. - : The pt / caregiver states he / she is on anticoagulants: coumadin. Home medication list is obtained from family members. - Exposure Risk Screening:: None identified. Screenin:20 Fall risk: At risk due to immobility. Assistance ADL's: Requires assistance with meal jo3 preparation, this assistance is provided by family members, bathing, assistance is provided by family members, dressing, assistance is provided by family members, toileting, assistance is provided by family members, housework, assistance is provided by family members, medication administration, assistance is provided by family members. Abuse/DV Screen: The patient / caregiver reports he/she is: Unable to Assess. Nutritional screening: No deficits noted. Advance Directives: There is no active DNR order. home support is adequate. 13:45 Screening information is obtained from family members. jo3 Assessment: 10:30 General: Appears ill, well groomed, Behavior is cooperative, quiet. Neurological: Level jo3 of Consciousness is confused, lethargic. EENT: No deficits noted. Cardiovascular: Capillary refill is brisk Heart tones S1 S2 present Edema is absent. Rhythm is sinus rhythm No ectopy. Respiratory: Airway is patent Respiratory effort is even, unlabored, Breath sounds are clear bilaterally. GI: Parent/caregiver reports the patient having C-diff history with recent negative stool. Derm: Skin is intact, Skin is dry, Skin is pale. 11:35 General: Appears in no apparent distress. Respiratory: Airway is patent Respiratory jo3 effort is even, unlabored, LS CTA following each 500cc IVF bolus. Sl ion LAC asymptomatic and infusing freely. Yee catheter placed for clear yellow urine. Drained 600cc immediately. 12:45 Reassessment: Patient appears in no apparent distress at this time. Central line placed jo3 by Dr Weldon. Daughter and caregiver remain at bedside. Pt tolerated well. Awaiting admission to ICU. Aware of plan of care . 13:20 General: Appears in no apparent distress, Behavior is quiet. Neurological: Level of jo3 Consciousness is confused, lethargic. Cardiovascular: Capillary refill is brisk Heart tones S1 S2 present Edema is absent. Rhythm is sinus rhythm No ectopy. Respiratory: Airway is patent Respiratory effort is even, unlabored, Breath sounds are clear bilaterally. in right upper lobe, left upper lobe, right middle lobe, left posterior upper lobe, right posterior upper lobe, left posterior lower lobe, right posterior middle lobe and right posterior lower lobe. Derm: Skin is pink, warm & dry. 14:09 General: Appears in no apparent distress, comfortable, Behavior is quiet. General: jo3 Awaiting admission to medical floor. Aware of plan of care . Neurological: Level of Consciousness is confused, lethargic. Cardiovascular: Rhythm is sinus rhythm No ectopy. Respiratory: Airway is patent Respiratory effort is even, unlabored. Derm: Skin is intact, Skin is dry, Skin is pale, Skin temperature is cool. 15:14 General: Appears in no apparent distress, comfortable, Behavior is quiet. Neurological: jo3 Level of Consciousness is lethargic. Cardiovascular: Rhythm is sinus rhythm No ectopy. Respiratory: Airway is patent Respiratory effort is even, unlabored. Vital Signs: 09:59 BP 93 / 53 (auto/); jo3 10:01 Pulse Ox 93% ; jo3 10:13 Pulse 97 MON; Pulse Ox 96% ; jo3 10:13 BP 100 / 55 (auto/); jo3 10:20 BP 100 / 55; Pulse 92; Resp 18; Temp 98.2(TE); Pulse Ox 98% on R/A; dem1 10:23 BP 106 / 71 (auto/); jo3 10:23 Pulse 93 MON; Pulse Ox 96% ; jo3 10:25 BP 101 / 56 (auto/); jo3 10:25 Pulse 92 MON; Pulse Ox 94% ; jo3 10:30 BP 107 / 54 (auto/); jo3 10:30 Pulse 90 MON; Pulse Ox 94% ; jo3 10:31 Weight 50.8 kg; Height 5 ft. 0 in. (152.40 cm); jo3 10:40 BP 93 / 55 (auto/); jo3 10:40 Pulse 88 MON; Pulse Ox 72% ; jo3 10:50 BP 100 / 56 (auto/); jo3 10:50 Pulse 85 MON; Pulse Ox 99% ; jo3 11:00 BP 102 / 11 (auto/); jo3 11:00 Pulse 86 MON; Pulse Ox 98% ; jo3 11:06 BP 94 / 55 (auto/); jo3 11:06 Pulse 85 MON; Pulse Ox 98% ; jo3 11:22 BP 97 / 50 (auto/); jo3 11:22 Pulse 85 MON; Pulse Ox 98% ; jo3 11:31 BP 95 / 49 (auto/); jo3 11:31 Pulse 83 MON; Pulse Ox 98% ; jo3 11:45 BP 78 / 39 (auto/); jo3 11:45 Pulse 81 MON; Pulse Ox 98% ; jo3 11:51 BP 78 / 43 (auto/); jo3 11:51 Pulse 80 MON; Pulse Ox 98% ; jo3 11:52 BP 79 / 43 (auto/); jo3 11:52 Pulse 80 MON; Pulse Ox 98% ; jo3 11:58 BP 87 / 49 (auto/); jo3 11:58 Pulse 82 MON; Pulse Ox 98% ; jo3 12:00 BP 87 / 49 (auto/); jo3 12:00 Pulse 80 MON; Pulse Ox 99% ; jo3 12:32 BP 85 / 50 (auto/); jo3 12:32 Pulse 80 MON; Pulse Ox 94% ; jo3 12:42 BP 87 / 54 (auto/); jo3 12:42 Pulse 79 MON; Pulse Ox 94% ; jo3 12:50 BP 93 / 56 (auto/); jo3 12:50 Pulse 78 MON; Pulse Ox 86% ; jo3 12:58 BP 91 / 52 (auto/); jo3 12:58 Pulse 78 MON; Pulse Ox 99% ; jo3 13:00 BP 99 / 54 (auto/); jo3 13:00 Pulse 79 MON; Pulse Ox 98% ; jo3 13:15 BP 112 / 64 (auto/); jo3 13:15 Pulse 78 MON; Pulse Ox 97% ; jo3 13:19 ml6 13:30 BP 83 / 44 (auto/); jo3 13:30 Pulse 76 MON; Pulse Ox 95% ; jo3 13:36 BP 80 / 41 (auto/); jo3 13:36 Pulse 75 MON; Pulse Ox 94% ; jo3 13:42 BP 101 / 59 (auto/); jo3 13:42 Pulse 76 MON; Pulse Ox 97% ; jo3 13:45 BP 95 / 53 (auto/); jo3 13:45 Pulse 76 MON; Pulse Ox 98% ; jo3 13:45 Temp 94.5(R); jo3 14:00 BP 92 / 55 (auto/); jo3 14:00 Pulse 75 MON; Pulse Ox 98% ; jo3 14:15 BP 91 / 55 (auto/); jo3 14:15 Pulse 75 MON; Pulse Ox 99% ; jo3 14:30 BP 94 / 52 (auto/); jo3 14:30 Pulse 74 MON; Pulse Ox 97% ; jo3 14:45 BP 92 / 51 (auto/); jo3 14:45 Pulse 74 MON; Pulse Ox 98% ; jo3 15:00 BP 103 / 57 (auto/); jo3 15:00 Pulse 72 MON; Pulse Ox 100% ; jo3 15:13 BP 102 / 59 (auto/); jo3 15:13 Pulse 72 MON; Pulse Ox 99% ; jo3 15:15 BP 112 / 64 (auto/); jo3 15:15 Pulse 71 MON; Pulse Ox 100% ; jo3 10:31 Body Mass Index 21.87 (50.80 kg, 152.40 cm) jo3 13:19 CVP 15 ml6 13:45 Wrapped in warm blankets at this time jo3 ED Course: 10:01 Patient visited by Cortney Delgado, Director Child. deg 10:01 Patient moved to Waiting deg 10:01 The patient / caregiver is instructed regarding the plan of care and ED course. jo3 10:02 Patient moved to 1 deg 10:03 Francisca Marks MD is Attending Physician. sd1 10:03 Patient visited by Francisca Marks MD. sd1 10:08 Inserted saline lock: 20 gauge in right forearm. kr3 10:09 EKG done. (by ED staff). Reviewed by Francisca Marks MD. dem1 10:14 Patient visited by Mariella Frias. dem1 10:21 Patient visited by Mariella Frias. dem1 10:24 BLOOD CULTURES Sent. jo3 10:27 Triage Initiated jo3 10:30 Inserted saline lock: 18 gauge in left antecubital area. Labs drawn. (by ED staff). jo3 Sent per order to lab. Labs/Blood culture drawn. 10:31 Patient visited by Amy Bailey RN. jo3 10:42 -Arterial Blood Gas Sent. js 11:20 Chest, 1 View Returned. EDMS 11:34 Patient visited by Dee Chandra PCA. ct3 11:50 Shandra Weldon is Hospitalizing Provider. sd1 11:57 Patient visited by Amy Bailey,HENRY. jo3 12:45 Assist provider with central line placement of triple lumen in right internal jugular. jo3 Set up central line tray. Line placed by Shandra He Placement verified by CXR, blood return, Dressed with Tegaderm, CHG Patient tolerated well. 13:20 No procedures done that require assistance. jo3 13:47 portable chest Returned. EDMS 14:20 Patient visited by Amy Bailey RN. jo3 15:29 Chest, 1 View Returned. EDMS 15:53 [facility] Payment Agreement was scanned into D4P and attached to record. lg 03/21 10:55 T-Sheet-- Draft Copy was scanned into D4P and attached to record. gb 10:55 ECG/EKG was scanned into D4P and attached to record. gb 10:55 Consents was scanned into D4P and attached to record. gb 10:56 [place] Protocol was scanned into D4P and attached to record. gb Administered Medications: 03/20 10:18 Drug: cefTRIAXone 2 grams [ceftriaxone 1 gram solution for injection] Route: IVPB; kr3 Infused Over: 30 mins; Site: right forearm; 10:39 Drug: NS 0.9% (Sepsis- hypotension or lactate >4mmol/L, 30ml/kg) 1524 ml [sodium jo3 chloride 0.9 % intravenous solution] Route: IV; Rate: bolus; Site: right forearm; 12:00 Follow up: IV Status: Completed infusion jo3 Attachments: 10:55 Consents gb 10:56 [place] Protocol gb Intake: 03/20 15:20 PO: 0.00ml; IV: 3100.00ml; Total: 3100.00ml. jo3 Output: 15:20 Urine: 1100.00ml; Total: 1100.00ml. jo3 RT: 10:42 ABG's drawn from right radial artery allens test done and positive pressure held for 5 js minutes no bleeding noted pressure bandage applied specimen sent pt. tolerated well. O2 via nasal cannula \T\ 4L/min. Order Results: Lab Order: -Arterial Blood Gas; [facility] 03/20/16 10:34 Test: ABG pH (ARTERIAL); Value: 7.411; Range: 7.350-7.450; Units: UNITS; Status: F Test: ABG PARTIAL PRESSURE CO2; Value: 35.9; Range: 35.0-45.0; Units: mmHg; Status: F Test: ABG PARTIAL PRESSURE O2; Value: 113.0; Range: 75.0-100.0; Abnormal: Above high normal; Units: mmHg; Status: F Test: ABG TOTAL CO2; Value: 23.4; Range: 23.0-31.0; Units: MEQ/L; Status: F Test: ABG HCO3; Value: 22.3; Range: 22.0-26.0; Units: MEQ/L; Status: F Test: ABG BASE EXCESS; Value: -1.8; Range: -2.0-2.0; Status: F Test: ABG STANDARD HCO3; Value: 23.0; Range: 22.0-26.0; Units: MEQ/L; Status: F Test: ABG O2 SATURATION; Value: 98.2; Range: 95.0-99.0; Units: %; Status: F Test: ABG DEVICE; Value: NASAL SUNNI; Status: F Lab Order: Amylase; [facility] 03/20/16 10:14 Test: AMYLASE; Value: 53; Range: 25-115; Units: U/L; Status: F Lab Order: C Reactive Protein; [facility] 03/20/16 10:14 Test: C REACTIVE PROTEIN QUANTITATIV; Value: 4.64; Range: 0.00-0.30; Abnormal: Above high normal; Units: MG/DL; Status: F Lab Order: CBC with Diff; [facility] 03/20/16 10:14 Test: WHITE BLOOD COUNT; Value: 21.3; Range: 4.0-10.0; Abnormal: Above high normal; Units: K/mm3; Status: F Test: RED BLOOD COUNT; Value: 4.73; Range: 4.00-5.40; Units: M/mm3; Status: F Test: HEMOGLOBIN; Value: 14.1; Range: 12.0-16.0; Units: g/dl; Status: F Test: HEMATOCRIT; Value: 44.2; Range: 36.0-47.0; Units: %; Status: F Test: MEAN CORPUSCULAR VOLUME; Value: 93.5; Range: 80.0-96.0; Units: fl; Status: F Test: MEAN CORPUSCULAR HEMOGLOBIN; Value: 29.8; Range: 27.0-33.0; Units: pg; Status: F Test: MEAN CORPUSCULAR HGB CONC; Value: 31.9; Range: 32.0-36.5; Abnormal: Below low normal; Units: g/dl; Status: F Test: RED CELL DISTRIBUTION WIDTH; Value: 14.3; Range: 11.5-14.5; Units: %; Status: F Test: PLATELET COUNT, AUTOMATED; Value: 258; Range: 150-450; Units: k/mm3; Status: F Test: NEUTROPHILS %; Value: 89.6; Range: 36.0-66.0; Abnormal: Above high normal; Units: %; Status: F Test: LYMPH %; Value: 5.1; Range: 24.0-44.0; Abnormal: Below low normal; Units: %; Status: F Test: MONO %; Value: 3.7; Range: 0.0-5.0; Units: %; Status: F Test: EOS %; Value: 0.4; Range: 0.0-3.0; Units: %; Status: F Test: BASO %; Value: 0.6; Range: 0.0-1.0; Units: %; Status: F Test: LARGE UNSTAINED CELL %; Value: 0.7; Range: 0.0-4.0; Units: %; Status: F Test: NEUTROPHILS #; Value: 19.1; Range: 1.8-7.7; Abnormal: Above high normal; Units: K/mm3; Status: F Test: LYMPH #; Value: 1.2; Range: 1.5-4.5; Abnormal: Below low normal; Units: K/mm3; Status: F Test: MONO #; Value: 0.8; Range: 0.0-0.8; Units: K/mm3; Status: F Test: EOS #; Value: 0.1; Range: 0.0-0.50; Units: K/mm3; Status: F Test: BASO #; Value: 0.1; Range: 0.0-0.2; Units: K/mm3; Status: F Test: LARGE UNSTAINED CELL #; Value: 0.2; Range: 0.0-0.4; Units: K/mm3; Status: F Lab Order: Lactic Acid (Heaton tube on ice); [facility] 03/20/16 10:14 Test: LACTIC ACID LEVEL, LACTATE; Value: 2.7; Range: 0.4-2.0; Abnormal: Above upper panic limits; Units: MMOL/L; Status: F Lab Order: Liver Profile; [facility] 03/20/16 10:14 Test: AST/SGOT; Value: 20; Range: 15-37; Units: U/L; Status: F Test: ALT/SGPT; Value: 21; Range: 12-78; Units: U/L; Status: F Test: ALKALINE PHOSPHATASE; Value: 93; Range: 45-117; Units: U/L; Status: F Test: BILIRUBIN,TOTAL; Value: 0.8; Range: 0.2-1.0; Units: MG/DL; Status: F Test: BILIRUBIN,DIRECT; Value: 0.1; Range: 0.0-0.2; Units: MG/DL; Status: F Test: TOTAL PROTEIN; Value: 7.5; Range: 6.4-8.2; Units: GM/DL; Status: F Test: ALBUMIN; Value: 3.4; Range: 3.2-5.2; Units: GM/DL; Status: F Test: ALBUMIN/GLOBULIN RATIO; Value: 0.83; Range: 1.00-1.93; Abnormal: Below low normal; Status: F Lab Order: MED Profile; SPEC' 03/20/16 10:14 Test: GLUCOSE, FASTING; Value: 109; Range: 83-110; Units: MG/DL; Status: F Test: BLOOD UREA NITROGEN; Value: 24; Range: 7-18; Abnormal: Above high normal; Units: MG/DL; Status: F Test: CREATININE FOR GFR; Value: 1.51; Range: 0.55-1.02; Abnormal: Above high normal; Units: MG/DL; Status: F Test: GLOMERULAR FILTRATION RATE; Value: 34.6; Range: >32; Status: F Test: SODIUM LEVEL; Value: 141; Range: 136-145; Units: MEQ/L; Status: F Test: POTASSIUM SERUM; Value: 4.5; Range: 3.5-5.1; Units: MEQ/L; Status: F Test: CHLORIDE LEVEL; Value: 106; Range: 98-107; Units: MEQ/L; Status: F Test: CARBON DIOXIDE LEVEL; Value: 27; Range: 21-32; Units: MEQ/L; Status: F Test: ANION GAP; Value: 8; Range: 8-16; Units: MEQ/L; Status: F Test: CALCIUM LEVEL; Value: 9.0; Range: 8.8-10.2; Units: MG/DL; Status: F Test Note: ; Units are mL/min/1.73 m2 Chronic Kidney Disease Staging per NKF: Stage I & II GFR >=60 Normal to Mildly Decreased Stage III GFR 30-59 Moderately Decreased Stage IV GFR 15-29 Severely Decreased Stage V GFR <15 Very Little GFR Left ESRD GFR <15 on [employer] Lab Order: PT/INR; SPEC03/20/16 10:14 Test: PROTHROMBIN TIME; Value: 33.6; Range: 12.3-14.5; Abnormal: Above high normal; Units: SECONDS; Status: F Test: INR; Value: 3.31; Status: F Test Note: ; THERAPUTIC HUMAN INR VALUES INDICATIONS NORMAL RANGES PROPHYLAXIS/TREATMENT OF: VENOUS THROMBOSIS 2.0-3.0 PULMONARY EMBOLISM 2.0-3.0 PREVENTION OF SYSTEMIC EMBOLISM FROM: TISSUE HEART VALVES 2.0-3.0 ACUTE MYOCARDIAL INFARCTION 2.0-3.0 VALVULAR HEART DISEASE 2.0-3.0 ATRIAL FIBRILLATION 2.0-3.0 MECHANICAL VALVES(HIGH RISK) 2.5-3.5 RECURRENT MYOCARDIAL INFARCTION 2.5-3.5 Lab Order: PTT; SPEC03/20/16 10:14 Test: PARTIAL THROMBOPLASTIN TIME; Value: 47.0; Range: 26.6-37.1; Abnormal: Above high normal; Units: SECONDS; Status: F Lab Order: Type & Screen; 03/20/16 10:14 Test: BLOOD TYPE; Value: O POS; Status: F Test: AB SCREEN (INDIRECT LUIS)GEL; Value: NEGATIVE; Status: F Lab Order: Urinalysis; SPEC'M 03/20/16 10:16 Test: APPEARANCE, URINE; Value: HAZY; Range: CLEAR; Status: F Test: COLOR, URINE; Value: YELLOW; Range: YELLOW; Status: F Test: PH,URINE; Value: 5.0; Range: 5.0-9.0; Units: UNITS; Status: F Test: SPECIFIC GRAVITY URINE AUTO; Value: 1.009; Range: 1.002-1.035; Status: F Test: PROTEIN, URINE AUTO; Value: NEGATIVE; Range: NEGATIVE; Units: mg/dL; Status: F Test: GLUCOSE, URINE (UA) AUTO; Value: NEGATIVE; Range: NEGATIVE; Units: mg/dL; Status: F Test: KETONE, URINE AUTO; Value: NEGATIVE; Range: NEGATIVE; Units: mg/dL; Status: F Test: UROBILINOGEN, URINE AUTO; Value: 0.2; Range: 0.0-2.0; Units: mg/dL; Status: F Test: BILIRUBIN, URINE AUTO; Value: NEGATIVE; Range: NEGATIVE; Status: F Test: NITRITE, URINE AUTO; Value: NEGATIVE; Range: NEGATIVE; Status: F Test: LEUKOCYTE ESTERASE, URINE AUTO; Value: TRACE; Range: NEGATIVE; Abnormal: Above high normal; Status: F Test: BLOOD, URINE BLOOD; Value: 1+; Range: NEGATIVE; Abnormal: Above high normal; Status: F Test: WBC, URINE AUTO; Value: 5; Range: 0-3; Abnormal: Above high normal; Units: /HPF; Status: F Test: RBC, URINE AUTO; Value: 0; Range: 0-3; Units: /HPF; Status: F Test: BACTERIA, URINE AUTO; Value: NEGATIVE; Range: NEGATIVE; Status: F Test: SQUAMOUS EPITHELIAL CELL UR AU; Value: 5; Range: 0-6; Units: /HPF; Status: F Test: MUCUS, URINE; Value: SMALL; Range: NEGATIVE; Status: F Test: HYALINE CAST, URINE AUTO; Value: 4; Range: 0-1; Units: /LPF; Status: F Lab Order: CARDIAC INJURY PROFILE; SPEC'M 03/20/16 10:14 Test: CPK CREATINE PHOSPHOKINASE; Value: 55; Range: 26-192; Units: U/L; Status: F Test: CK-MB VALUE MASS; Value: 3.2; Range: 0.0-3.6; Units: NG/ML; Status: F Test: MB/CK RELATIVE INDEX; Value: 5.81; Range: < OR =4; Abnormal: Above high normal; Status: F Test Note: ; DIAGNOSIS CRITERIA MMB ng/ml Relative Index (RI) NON-AMI < or = 5 N/A [place] > 5 < or = 4 AMI > 5 > 4 Lab Order: TROPONIN; [facility] 03/20/16 10:14 Test: TROPONIN I; Value: 1.20; Range: < 0.10; Abnormal: Above high normal; Units: NG/ML; Status: F Test Note: ; Troponin I Reference Interval for [employer] LOCI: 99th Percentile= 0.00-0.045 ng/ml Risk Stratification: <= 0.10 ng/ml Decreased Risk for Adverse Clinical Events. 0.10-1.50 ng/ml Increased Risk for Adverse Clinical Events. Evaluation of additional criterion and/or repeat testing in 2-6 hours is suggested to rule out myocardial damage. >= 1.50 ng/ml Indicative of Myocardial Injury. Lab Order: THYROID PROFILE; [facility] 03/20/16 10:14 Test: T UPTAKE; Value: 38; Range: 30-39; Units: %; Status: F Test: THYROXINE (T4); Value: 12.3; Range: 4.5-12.0; Abnormal: Above high normal; Units: UG/DL; Status: F Test: FREE THYROXINE INDEX; Value: 4.7; Range: 1.3-4.8; Units: %; Status: F Test: THYROID STIMULATING HORMONE; Value: 0.355; Range: 0.358-3.740; Abnormal: Below low normal; Units: uIU/ML; Status: F Lab Order: CARDIAC MARKER PANEL; [facility] 03/20/16 13:57 Test: CPK CREATINE PHOSPHOKINASE; Value: 50; Range: 26-192; Units: U/L; Status: F Test: CK-MB VALUE MASS; Value: 3.1; Range: 0.0-3.6; Units: NG/ML; Status: F Test: MB/CK RELATIVE INDEX; Value: 6.20; Range: < OR =4; Abnormal: Above high normal; Status: F Test: TROPONIN I; Value: 0.80; Range: < 0.10; Abnormal: High; Units: NG/ML; Status: F Test Note: ; DIAGNOSIS CRITERIA MMB ng/ml Relative Index (RI) NON-AMI < or = 5 N/A [place] > 5 < or = 4 AMI > 5 > 4 Lab Order: LACTIC ACID LEVEL, LACTATE; SPEC'M 03/20/16 13:57 Test: LACTIC ACID LEVEL, LACTATE; Value: 1.1; Range: 0.4-2.0; Units: MMOL/L; Status: F Lab Order: Fingerstick Blood Sugar; SPEC'M 03/20/16 13:52 Test: BEDSIDE GLUCOSE; Value: 94; Range: 83-110; Units: MG/DL; Status: F Radiology Order: Chest, 1 View Test: Chest, 1 View REASON FOR EXAMINATION: Cough; Chest x-ray: Single view.; ; History: Cough.; ; Comparison chest x-ray February 15, 2016.; ; Findings: Moderate to marked cardiomegaly is observed as before. The lungs are; symmetrically aerated and free of infiltrate. Pleural angles are sharp. There; is diffuse osteopenia. Patient is rotated slightly to the right for the current; exposure. EKG monitoring electrodes and oxygen delivery tubing are seen.; ; Impression:; ; Moderate cardiomegaly. Otherwise no acute disease.; ; ; Signed by; Sabino Greco MD 03/20/2016 02:57 P; Radiology Order: portable chest Test: portable chest REASON FOR EXAMINATION: confirm central line placement ; SINGLE VIEW CHEST:; ; Single AP view of the chest is performed and compared to prior exam earlier; today. There is placement of a right central venous catheter and the tip is in; the right atrium. There is no pneumothorax. Lungs are unchanged in appearance.; Cardiomediastinal silhouette is unchanged.; ; IMPRESSION:; Placement of right central venous catheter with the tip in the right atrium. No; pneumothorax.; ; Unreviewed; Outcome: 11:50 Decision to Hospitalize by Provider. sd1 13:45 Discharge Assessment: Patient awake, alert and oriented x 3. No cognitive and/or jo3 functional deficits noted. Patient verbalized understanding of disposition instructions. patient administered narcotics - no. The following High Risk Discharge criteria are identified: None. Admitted to ICU accompanied by nurse, accompanied by tech, family with patient, via stretcher, with oxygen, on monitor, with chart. Condition: stable. CT Study completed. Admission hand-off: Report called to Elizabeth. Stated ready to receive pt. Property :Personal belongings accompany Pt. 15:29 Patient left the ED. deg Signatures: Dispatcher [employer] EDMS Francisca Marks MD MD sd1 Cortney Delgado, Director Child Unit deg Dorcas Hassan, Reg Reg gb Brittany Rodriguez, Reg Reg lg Michelle,Therese Barbour,RN RN kr3 Amy Bailey,RN RN emmy3 Ender Corona, RN RN ml6 Dee Chandra, ELLIE DAY WORKER ct3 Mariella Frias1 Chart Complete MTDD
[2016-03-22] MEDS: WARFARIN SOD 2 MG TAB PO SCH (17:21)
[2016-03-22] MEDS: PANTOPRAZOLE 40MG INJ (PROTONIX) (C9113) IV SCH (17:21)
[2016-03-22] MEDS: MIRTAZAPINE 15 MG TAB PO SCH (21:15)
[2016-03-23] VITALS (10 sets, daily range): BP systolic 111–151; BP diastolic 58–96
[2016-03-23] MEDS: MEROPENEM INJ 1 GM in D5W MINI-BAG PLUS 100 ML IV SCH (04:57)
[2016-03-23] MEDS: LEVOTHYROXINE 0.075 MG TAB (75 MCG) PO SCH (05:37)
[2016-03-23] MEDS: ACYCLOVIR 500 MG in D5W MINI-BAG PLUS 100 ML IV SCH ×3 (05:37→21:14)
[2016-03-23 05:40] LABS: INR 2.43
[2016-03-23 05:42] LABS: CALCIUM LEVEL 7.4 MG/DL (8.8-10.2); CREATININE FOR GFR 1.07 MG/DL (0.55-1.02); GLOMERULAR FILTRATION RATE 51.5 (>32); MAGNESIUM LEVEL 1.8 MG/DL (1.8-2.4); POTASSIUM SERUM 3.9 MEQ/L (3.5-5.1)
[2016-03-23 05:46] LABS: MEAN CORPUSCULAR HEMOGLOBIN 30.1 pg (27.0-33.0); MEAN CORPUSCULAR HGB CONC 32.7 g/dl (32.0-36.5); RED CELL DISTRIBUTION WIDTH 14.6 % (11.5-14.5); WHITE BLOOD COUNT 11.1 K/mm3 (4.0-10.0)
[2016-03-23] MEDS: NYSTATIN 100,000 UNITS/GM TOPICAL PWD 15 GM TOP SCH ×2 (09:00→20:51)
[2016-03-23] MEDS: LACOSAMIDE 50 MG TAB (VIMPAT) PO SCH ×2 (09:10→20:51)
[2016-03-23] MEDS: VANCOMYCIN ORAL SOL 250MG/5ML ORAL SYRINGE PO SCH ×2 (09:10→20:52)
[2016-03-23] MEDS: LACTOBACILLUS ACIDOPHILUS CAP (BACID) PO SCH ×2 (09:10→20:51)
--- NOTE | 2016-03-23 10:58 | IPNPDOC ---
Assessment/Plan Date Seen The patient was seen on 03/23/16. Problems Problems: (1) Septic shock Status: Acute Problem Text: no source of infection identified. will continue with acyclovir but dc meropenem and vancomycin. With slightly high protein may have viral encephalitis. will send blood fungal culture, stool fungal stain and culture did not require levophed , responded to iv fluids. 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 Problem Text: continue coumadin , inr therapeutic (3) Hypothyroidism Status: Chronic Problem Text: continue synthroid (4) Seizure disorder Status: Chronic (5) Dementia Status: Chronic Problem Text: at baseline complete assist can move from bed to WC then to sofa with assist, needs assistance with all meals eats thin liquids and mechanical soft diet at home sometime pureed diet (6) Anxiety Status: Chronic Plan / VTE VTE Prophylaxis Ordered?: Yes Plan / Urinary Catheter Reason for insertion/continuin: Critical Pt monitoring Subjective Review of Systems CC/HPI The patient is a 89-year-old female admitted with a reason for visit of Septic Shock. Events since last encounter low grade temperature with a tmax of 100.4 did not require any tynelol. persistent liquid stool brown no smell. mental status as per daughter is at baseline now , sleeping most of the day but waking up during meals and taking good portions of diet. Objective Physical Examination General Exam: Positive: Other (lethargic) Eye Exam: Positive: Conjunctiva & lids normal, EOMI ENT Exam: Positive: Atraumatic Neck Exam: Positive: Supple Chest Exam: Positive: Clear to auscultation Heart Exam: Positive: Normal S1, Normal S2, Rate Normal Telemetry: Positive: No significant arrhythmia Abdomen Exam: Positive: Normal bowel sounds, Soft Extremity Exam: Positive: Normal pulses, Negative: Clubbing, Cyanosis, Edema Vital Signs/I&O Vital Signs Date Time Temp Pulse Resp B/P Pulse Ox O2 Delivery O2 Flow Rate FiO2 03/23/16 10:00 97.5 89 20 126/62 97 Room Air 03/23/16 08:00 1.0 I&O- Last 24 Hours up to 6 AM 03/23/16 06:00 Intake Total 1360 ml Output Total 1605 ml Balance -245 ml Laboratory Data Labs 24H Laboratory Tests 2 03/23/16 04:56: Anion Gap 7L, C-Reactive Protein, Quantitative 8.08H, Blood Urea Nitrogen 13, Creatinine 1.07H, Sodium Level 145, Potassium Level 3.9, Chloride Level 111H, Carbon Dioxide Level 27, Calcium Level 7.4L, Glomerular Filtration Rate 51.5, Magnesium Level 1.8, Prothromb Time International Ratio 2.43, Prothrombin Time 26.5H CBC/BMP Laboratory Tests 03/23/16 04:56 Calcium Level 7.4 L, Red Blood Count 3.36 L, Mean Corpuscular Volume 92.0, Mean Corpuscular Hemoglobin 30.1, Mean Corpuscular Hemoglobin Concent 32.7, Red Cell Distribution Width 14.6 H Microbiology Microbiology 03/22/16 Fungal Smear, Received Pending 03/22/16 Blood Fungal Culture, Received Pending 03/21/16 Blood Culture - Preliminary, Resulted No Growth after 48 hours. All Specime... 03/21/16 Blood Culture - Preliminary, Resulted No Growth after 48 hours. All Specime... 03/20/16 Blood Culture - Preliminary, Resulted No Growth after 72 hours. All specime... 03/20/16 Blood Culture - Preliminary, Resulted No Growth after 72 hours. All specime... 03/20/16 , Received Pending 03/20/16 Acid Fast Stain, Received Pending 03/20/16 Mycobacterial Culture, Received Pending 03/20/16 Gram Stain - Final, Complete 03/20/16 CSF Culture - Final, Complete 03/21/16 Influenza Virus Type A Antigen - Final, Complete 03/21/16 Influenza Virus Type B Antigen - Final, Complete 03/20/16 MRSA Screen - Final, Complete 03/20/16 Urine Culture - Final, Complete AGNIESZKA HARDING MD Mar 23, 2016 10:58
[2016-03-23] MEDS: ALPRAZolam 0.25 MG TAB PO PRN ×3 (11:51→22:50)
[2016-03-23] MEDS: WARFARIN SOD 2 MG TAB PO SCH (17:23)
[2016-03-23] MEDS: PANTOPRAZOLE 40MG INJ (PROTONIX) (C9113) IV SCH (17:23)
[2016-03-23] MEDS: MIRTAZAPINE 15 MG TAB PO SCH (20:52)
[2016-03-24 04:32] VITALS: BP 118/58
[2016-03-24] MEDS: LEVOTHYROXINE 0.075 MG TAB (75 MCG) PO SCH (05:09)
[2016-03-24] MEDS: ACYCLOVIR 500 MG in D5W MINI-BAG PLUS 100 ML IV SCH ×3 (05:09→21:37)
[2016-03-24 05:26] LABS: MEAN CORPUSCULAR HEMOGLOBIN 30.4 pg (27.0-33.0); MEAN CORPUSCULAR VOLUME 91.9 fl (80.0-96.0); RED CELL DISTRIBUTION WIDTH 14.6 % (11.5-14.5); WHITE BLOOD COUNT 9.5 K/mm3 (4.0-10.0)
[2016-03-24 05:46] LABS: INR 2.6
[2016-03-24 05:49] LABS: CALCIUM LEVEL 7.9 MG/DL (8.8-10.2); CREATININE FOR GFR 1.07 MG/DL (0.55-1.02); GLOMERULAR FILTRATION RATE 51.5 (>32); MAGNESIUM LEVEL 1.9 MG/DL (1.8-2.4); POTASSIUM SERUM 4.1 MEQ/L (3.5-5.1)
[2016-03-24 08:00] VITALS: BP 108/55
[2016-03-24] MEDS: VANCOMYCIN ORAL SOL 250MG/5ML ORAL SYRINGE PO SCH ×2 (08:59→21:30)
[2016-03-24] MEDS ORDERED: LOPERAMIDE ORAL SOLN 1MG/5ML UD GT SCH (09:00)
[2016-03-24] MEDS: LACTOBACILLUS ACIDOPHILUS CAP (BACID) PO SCH ×2 (09:00→21:36)
[2016-03-24] MEDS: LACOSAMIDE 50 MG TAB (VIMPAT) PO SCH ×2 (09:00→21:36)
[2016-03-24] MEDS: NYSTATIN 100,000 UNITS/GM TOPICAL PWD 15 GM TOP SCH ×2 (09:01→21:39)
[2016-03-24] MEDS: ALPRAZolam 0.25 MG TAB PO PRN ×3 (09:57→21:32)
[2016-03-24 10:50] VITALS: BP 116/58
--- NOTE | 2016-03-24 13:15 | IPNPDOC ---
Assessment/Plan Date Seen The patient was seen on 03/24/16. Problems Problems: (1) SIRS (systemic inflammatory response syndrome) Status: Resolved Problem Text: may have had SIRs from viral infection no bacterial source of infection identified. (2) Hypovolemic shock Status: Resolved Problem Text: could have had a viral infection with poor intake and persistent diarrhea possibly became dehydrated and so was hypovolemic and hypotensive on admission responded to fluids. no source of infection identified. (3) Septic shock Status: Resolved Problem Text: Not sure if had septic shock or hypovolemic shock could have had a viral infection with poor intake and persistent diarrhea possibly became dehydrated and so was hypotensive on admission responded to fluids. no source of infection identified. will continue with acyclovir With slightly high protein may have viral encephalitis. will send blood fungal culture, stool fungal stain and culture did not require levophed , responded to iv fluids. 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 Problem Text: continue coumadin , inr therapeutic (5) Hypothyroidism Status: Chronic Problem Text: continue synthroid (6) Seizure disorder Status: Chronic (7) Dementia Status: Chronic Problem Text: at baseline complete assist can move from bed to WC then to sofa with assist, needs assistance with all meals eats thin liquids and mechanical soft diet at home sometime pureed diet (8) Anxiety Status: Chronic (9) Diarrhea Status: Chronic Problem Text: has been going on for a month or more, GI panel negative, stool occult blood negative had history of c diff before now pcr negative will try imodium Plan / VTE VTE Prophylaxis Ordered?: Yes Plan / Urinary Catheter Reason for insertion/continuin: Critical Pt monitoring Subjective Review of Systems CC/HPI The patient is a 89-year-old female admitted with a reason for visit of Septic Shock. Events since last encounter no issues overnight hoever continues to have persistent diarrhea, stool occult blood was negative. Objective Physical Examination General Exam: Positive: Other (lethargic) Eye Exam: Positive: Conjunctiva & lids normal, EOMI ENT Exam: Positive: Atraumatic Neck Exam: Positive: Supple Chest Exam: Positive: Clear to auscultation Heart Exam: Positive: Normal S1, Normal S2, Rate Normal Telemetry: Positive: No significant arrhythmia Abdomen Exam: Positive: Normal bowel sounds, Soft Extremity Exam: Positive: Normal pulses, Negative: Clubbing, Cyanosis, Edema Vital Signs/I&O Vital Signs Date Time Temp Pulse Resp B/P Pulse Ox O2 Delivery O2 Flow Rate FiO2 03/24/16 10:50 98.2 100 16 116/58 93 Room Air 03/23/16 08:00 1.0 I&O- Last 24 Hours up to 6 AM 03/24/16 06:00 Intake Total 880 ml Output Total 1275 ml Balance -395 ml Laboratory Data Labs 24H Laboratory Tests 2 03/24/16 05:14: Anion Gap 8, C-Reactive Protein, Quantitative 4.88H, Blood Urea Nitrogen 13, Creatinine 1.07H, Sodium Level 144, Potassium Level 4.1, Chloride Level 111H, Carbon Dioxide Level 25, Calcium Level 7.9L, Glomerular Filtration Rate 51.5, Magnesium Level 1.9, Prothromb Time International Ratio 2.60, Prothrombin Time 27.9H CBC/BMP Laboratory Tests 03/24/16 05:14 Calcium Level 7.9 L, Red Blood Count 3.45 L, Mean Corpuscular Volume 91.9, Mean Corpuscular Hemoglobin 30.4, Mean Corpuscular Hemoglobin Concent 33.0, Red Cell Distribution Width 14.6 H Microbiology Microbiology 03/22/16 Fungal Smear, Received Pending 03/22/16 Blood Fungal Culture, Received Pending 03/21/16 Blood Culture - Preliminary, Resulted No Growth after 72 hours. All specime... 03/21/16 Blood Culture - Preliminary, Resulted No Growth after 72 hours. All specime... 03/20/16 Blood Culture - Preliminary, Resulted No Growth after 72 hours. All specime... 03/20/16 Blood Culture - Preliminary, Resulted No Growth after 72 hours. All specime... 03/20/16 , Received Pending 03/20/16 Acid Fast Stain - Final, Resulted 03/20/16 Mycobacterial Culture, Resulted Pending 03/20/16 Gram Stain - Final, Complete 03/20/16 CSF Culture - Final, Complete 03/23/16 Stool Occult Blood (TIFFANIE) - Final, Complete 03/23/16 Gastrointestinal Tract Panel (PCR) - Final, Complete 03/23/16 MRSA Screen, Received Pending 03/21/16 Influenza Virus Type A Antigen - Final, Complete 03/21/16 Influenza Virus Type B Antigen - Final, Complete 03/20/16 MRSA Screen - Final, Complete 03/20/16 Urine Culture - Final, Complete AGNIESZKA HARDING MD Mar 24, 2016 13:15
[2016-03-24] MEDS: LOPERAMIDE 2 MG CAP PO SCH ×3 (13:34→21:32)
[2016-03-24 14:00] VITALS: BP 130/60
[2016-03-24] MEDS: WARFARIN SOD 2 MG TAB PO SCH (16:17)
[2016-03-24] MEDS: PANTOPRAZOLE 40MG INJ (PROTONIX) (C9113) IV SCH (16:17)
[2016-03-24] MEDS ORDERED: SODIUM CHLORIDE 0.9% INJ 10 ML SYR IV PRN (21:30)
[2016-03-24] MEDS: MIRTAZAPINE 15 MG TAB PO SCH (21:34)
[2016-03-24 22:00] VITALS: BP 140/65
[2016-03-24] MEDS: SODIUM CHLORIDE 0.9% INJ 10 ML SYR IV SCH (22:45)
--- NOTE | 2016-03-24 23:08 | IPN ---
DATE: 03/24/2016 Izabela seems to be doing much better. She is afebrile. She has had no new symptoms. She has had a fever, last was 24 hours ago which was a maximum temperature (T max) of 100. No cough or shortness of breath. Today, she is more sleepy than usual because she did not sleep well last night. She has not eaten very well. She still has a Yee catheter but urine is pretty clear. She has had three bowel movements, which were soft stools. LABORATORY DATA: White count is 9.5, hemoglobin 10.5, hematocrit 31.7, platelets 223. Sodium 144, potassium 4.1, chloride 111, bicarbonate 25, BUN 13, creatinine 1.07, glucose 94, calcium 7.9, magnesium 1.9, CRP 4.88 down from 12.1. Blood cultures all have remained negative. She had four sets. GI panel was negative. MRSA screens were negative. Urine cultures were negative. CSF cultures are negative. CSF panel was all negative for viruses, as well as herpes. The results are not in the chart but I did call the lab. On physical exam, temperature is 98.1, pulse 99, respirations 18, blood pressure 130/60, oxygen saturation 93% on room air. Heart: Normal, S1, S2, distant. Lungs are clear. Abdomen is soft, nontender. Extremities: No edema. The patient is lethargic, asleep. IMPRESSION: 1. Sepsis with hypotension, resolved with IV fluids. Source remains unclear. Will discontinue intravenous (IV) acyclovir; herpes PCR was negative on cerebrospinal fluid (CSF). 2. History of Clostridium (C) difficile colitis. Repeat stool specimens were negative for Clostridium difficile. She is on vancomycin, tapering dose at 125 mg twice a day for one week, daily for one week, every other day for one week and then every third day for two weeks. Continue probiotics. PLAN: Discontinue Yee catheter, discontinue IV vancomycin. Reculture if she has any further fever
[2016-03-25] MEDS: LEVOTHYROXINE 0.075 MG TAB (75 MCG) PO SCH (05:40)
[2016-03-25] MEDS: SODIUM CHLORIDE 0.9% INJ 10 ML SYR IV SCH ×3 (05:40→21:48)
[2016-03-25 06:00] VITALS: BP 110/64
[2016-03-25 06:04] LABS: MEAN CORPUSCULAR HEMOGLOBIN 30.8 pg (27.0-33.0); MEAN CORPUSCULAR HGB CONC 33.2 g/dl (32.0-36.5); MEAN CORPUSCULAR VOLUME 92.7 fl (80.0-96.0); RED CELL DISTRIBUTION WIDTH 14.5 % (11.5-14.5)
[2016-03-25 06:15] LABS: INR 3.31
[2016-03-25 06:31] LABS: CALCIUM LEVEL 8.3 MG/DL (8.8-10.2); CREATININE FOR GFR 1.14 MG/DL (0.55-1.02); GLOMERULAR FILTRATION RATE 47.9 (>32); POTASSIUM SERUM 4.3 MEQ/L (3.5-5.1)
[2016-03-25] MEDS: LACTOBACILLUS ACIDOPHILUS CAP (BACID) PO SCH ×2 (08:59→21:40)
[2016-03-25] MEDS: NYSTATIN 100,000 UNITS/GM TOPICAL PWD 15 GM TOP SCH ×2 (08:59→21:43)
[2016-03-25] MEDS: LACOSAMIDE 50 MG TAB (VIMPAT) PO SCH ×2 (08:59→21:39)
[2016-03-25] MEDS: VANCOMYCIN ORAL SOL 250MG/5ML ORAL SYRINGE PO SCH ×2 (08:59→21:46)
[2016-03-25] MEDS: LOPERAMIDE 2 MG CAP PO SCH ×3 (08:59→21:41)
[2016-03-25] MEDS ORDERED: LOPE2CA PO (10:38)
[2016-03-25] MEDS ORDERED: FIRS1SOL3 PO (10:38)
[2016-03-25] MEDS ORDERED: RISATAB3 PO (10:38)
[2016-03-25] MEDS: ALPRAZolam 0.25 MG TAB PO PRN ×2 (14:02→21:41)
[2016-03-25 15:31] VITALS: BP 139/66
[2016-03-25] MEDS: PANTOPRAZOLE 40MG INJ (PROTONIX) (C9113) IV SCH (16:38)
[2016-03-25] MEDS: WARFARIN SOD 2 MG TAB PO SCH (17:29)
[2016-03-25] MEDS: MIRTAZAPINE 15 MG TAB PO SCH (21:40)
[2016-03-25 22:00] VITALS: BP 124/70
--- NOTE | 2016-03-25 22:10 | IPNPDOC ---
Assessment/Plan Date Seen The patient was seen on 03/25/16. Problems Problems: (1) SIRS (systemic inflammatory response syndrome) Status: Resolved Problem Text: may have had SIRs from viral infection no bacterial source of infection identified. (2) Hypovolemic shock Status: Resolved Problem Text: could have had a viral infection with poor intake and persistent diarrhea possibly became dehydrated and so was hypovolemic and hypotensive on admission responded to fluids. no source of infection identified. (3) Septic shock Status: Resolved Problem Text: Not sure if had septic shock or hypovolemic shock could have had a viral infection with poor intake and persistent diarrhea possibly became dehydrated and so was hypotensive on admission responded to fluids. no source of infection identified. will continue with acyclovir With slightly high protein may have viral encephalitis. will send blood fungal culture, stool fungal stain and culture did not require levophed , responded to iv fluids. 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 Problem Text: continue coumadin , inr supratherapeutic will hold coumadin today (5) Hypothyroidism Status: Chronic Problem Text: continue synthroid (6) Seizure disorder Status: Chronic (7) Dementia Status: Chronic Problem Text: at baseline complete assist can move from bed to WC then to sofa with assist, needs assistance with all meals eats thin liquids and mechanical soft diet at home sometime pureed diet (8) Anxiety Status: Chronic (9) Diarrhea Status: Chronic Problem Text: has been going on for a month or more, GI panel negative, stool occult blood negative had history of c diff before now pcr negative will try imodium (10) Elevated troponin Status: Acute Plan / VTE VTE Prophylaxis Ordered?: Yes Plan / Urinary Catheter Reason for insertion/continuin: Critical Pt monitoring Subjective Review of Systems CC/HPI The patient is a 89-year-old female admitted with a reason for visit of Septic Shock. General: Reports: ROS Unobtainable Objective Physical Examination General Exam: Positive: Other (lethargic) Eye Exam: Positive: Conjunctiva & lids normal, EOMI ENT Exam: Positive: Atraumatic Neck Exam: Positive: Supple Chest Exam: Positive: Clear to auscultation Heart Exam: Positive: Normal S1, Normal S2, Rate Normal Telemetry: Positive: No significant arrhythmia Abdomen Exam: Positive: Normal bowel sounds, Soft Extremity Exam: Positive: Normal pulses, Negative: Clubbing, Cyanosis, Edema Vital Signs/I&O Vital Signs Date Time Temp Pulse Resp B/P Pulse Ox O2 Delivery O2 Flow Rate FiO2 03/25/16 15:31 97.7 88 18 139/66 92 Room Air 03/23/16 08:00 1.0 I&O- Last 24 Hours up to 6 AM 03/25/16 06:00 Intake Total 850 ml Output Total 900 ml Balance -50 ml Laboratory Data Labs 24H Laboratory Tests 2 03/25/16 05:50: Anion Gap 8, C-Reactive Protein, Quantitative 3.09H, Blood Urea Nitrogen 13, Creatinine 1.14H, Sodium Level 144, Potassium Level 4.3, Chloride Level 110H, Carbon Dioxide Level 26, Calcium Level 8.3L, Glomerular Filtration Rate 47.9, Magnesium Level 2.0, Prothromb Time International Ratio 3.31, Prothrombin Time 33.6H, Vitamin B12 Level 394 CBC/BMP Laboratory Tests 03/25/16 05:50 Calcium Level 8.3 L, Red Blood Count 3.40 L, Mean Corpuscular Volume 92.7, Mean Corpuscular Hemoglobin 30.8, Mean Corpuscular Hemoglobin Concent 33.2, Red Cell Distribution Width 14.5 Microbiology Microbiology 03/22/16 Fungal Smear, Received Pending 03/22/16 Blood Fungal Culture, Received Pending 03/21/16 Blood Culture - Preliminary, Resulted No Growth after 72 hours. All specime... 03/21/16 Blood Culture - Preliminary, Resulted No Growth after 72 hours. All specime... 03/20/16 Blood Culture - Final, Complete NO GROWTH AFTER 5 DAYS 03/20/16 Blood Culture - Final, Complete NO GROWTH AFTER 5 DAYS 03/20/16 , Received Pending 03/20/16 Acid Fast Stain - Final, Resulted 03/20/16 Mycobacterial Culture, Resulted Pending 03/20/16 Gram Stain - Final, Complete 03/20/16 CSF Culture - Final, Complete 03/23/16 Stool Occult Blood (TIFFANIE) - Final, Complete 03/23/16 Gastrointestinal Tract Panel (PCR) - Final, Complete 03/23/16 MRSA Screen - Final, Complete 03/21/16 Influenza Virus Type A Antigen - Final, Complete 03/21/16 Influenza Virus Type B Antigen - Final, Complete 03/20/16 MRSA Screen - Final, Complete 03/20/16 Urine Culture - Final, Complete JUAN MANUEL HOWELL DO Mar 25, 2016 22:10
[2016-03-26 00:06] LABS: CSFLYM10 Absent (.); CSFLYM11 Absent (.); CSFLYM12 Negative (.); CSFLYM14 Absent (.); CSFLYM15 Absent (.); CSFLYM16 Absent (.); CSFLYM17 Negative (.); CSFLYM2 Absent (.); CSFLYM3 Present (.); CSFLYM4 Absent (.); CSFLYM5 Present (.); CSFLYM6 Absent (.); CSFLYM7 Absent (.); CSFLYM8 Absent (.); CSFLYM9 Absent (.)
[2016-03-26 06:00] VITALS: BP 108/52
[2016-03-26] MEDS: SODIUM CHLORIDE 0.9% INJ 10 ML SYR IV SCH ×2 (06:09→13:56)
[2016-03-26] MEDS: LEVOTHYROXINE 0.075 MG TAB (75 MCG) PO SCH (06:09)
[2016-03-26 06:37] LABS: MEAN CORPUSCULAR HEMOGLOBIN 30.4 pg (27.0-33.0); MEAN CORPUSCULAR HGB CONC 32.6 g/dl (32.0-36.5); MEAN CORPUSCULAR VOLUME 93.4 fl (80.0-96.0); RED CELL DISTRIBUTION WIDTH 13.6 % (11.5-14.5); WHITE BLOOD COUNT 7.5 K/mm3 (4.0-10.0)
[2016-03-26 06:52] LABS: INR 3.77
[2016-03-26 07:13] LABS: CALCIUM LEVEL 8.3 MG/DL (8.8-10.2); CREATININE FOR GFR 1.12 MG/DL (0.55-1.02); GLOMERULAR FILTRATION RATE 48.9 (>32); MAGNESIUM LEVEL 2.1 MG/DL (1.8-2.4); POTASSIUM SERUM 4.3 MEQ/L (3.5-5.1)
[2016-03-26] MEDS ORDERED: VARIBAR PUDDING 40% w/v 230ML TUBE As Ordered ONE (07:52)
[2016-03-26] MEDS ORDERED: E-Z-PAQUE 96% w/w SUSP 176GM BTL As Ordered ONE (07:52)
[2016-03-26] MEDS ORDERED: VARIBAR NECTAR 40% w/v 240ML SUSP BTL As Ordered ONE (07:52)
[2016-03-26] MEDS: ALPRAZolam 0.25 MG TAB PO PRN (09:50)
[2016-03-26] MEDS: LACTOBACILLUS ACIDOPHILUS CAP (BACID) PO SCH (09:50)
[2016-03-26] MEDS: LACOSAMIDE 50 MG TAB (VIMPAT) PO SCH (09:50)
[2016-03-26] MEDS: LOPERAMIDE 2 MG CAP PO SCH (09:50)
[2016-03-26] MEDS: VANCOMYCIN ORAL SOL 250MG/5ML ORAL SYRINGE PO SCH (09:51)
[2016-03-26] MEDS: NYSTATIN 100,000 UNITS/GM TOPICAL PWD 15 GM TOP SCH (09:51)
--- NOTE | 2016-03-26 11:09 | NOCOX ---
DATE OF STUDY: On the night of 03/25/2016 to the morning of 03/26/2016. The study was performed on room air. Mean oxygen saturation for the study 90.9%. Lowest oxygen saturation 86%. Late in the study, beginning at about 0410, oxygen saturation remained well below 88% for well greater than 5 minutes. IMPRESSION: Variable nocturnal oxygen saturation on room air. Suggest adding oxygen and repeating the study.
--- NOTE | 2016-03-26 16:10 | REP ---
COOKIE SWALLOW: The procedure was performed under the direct supervision of Dr. Greco. The procedure was performed with Martina Pompa from speech pathology present. 5 mL aliquots of nectar, pudding and thin consistency barium was administered. There is no evidence of penetration or aspiration. A detailed report of this examination will be provided by speech pathology. 1 minute and 19 seconds of fluoroscopy time was utilized for this procedure. Reviewed by STELLA Nicholas 03/27/2016 08:27 AEdited and Signed by Sabino Greco MD 03/27/2016 09:56 A
--- NOTE | 2016-04-13 20:54 | DSES ---
DATE OF ADMISSION: 03/20/2016 DATE OF DISCHARGE: 03/26/2016 REASON FOR ADMISSION: Hypotension and fever. PRIMARY CARE PROVIDER: Dr. Josef Calderon FINAL DIAGNOSES: 1. Systemic inflammatory response syndrome (SIRS) likely secondary from viral illness. No bacterial source of infection. 2. Hypovolemic shock. 3. Septic shock. 4. History of DVT or PE. 5. Hypothyroidism. 6. Seizure disorder. 7. Dementia. 8. Anxiety. 9. Diarrhea. 10. Elevated troponins. HISTORY OF PRESENT ILLNESS: The patient is an 89-year-old female patient of Dr. Calderon presented to the emergency room with her family who noticed increased lethargy and distress. Per her family the patient has not seemed her normal self. At baseline she takes pureed with thin liquids occasionally, solid food for breakfast. She had recent C diff infection 03/19/2016, and was treated with vancomycin for C diff, had about six bowel movements, pretty loose. She was given 2 units of fluids, central line was placed in the emergency room. The patient was admitted for hospitalist service. Dr. Adler was consulted for the hospitalization. During the hospitalization for a septic shock blood cultures were negative after two sets. Urine cultures came back negative as well. The patient had an LP that has slightly elevated WBCs so she was continued on acyclovir 500 mg every 8 hours, meropenem and vancomycin. Due to the patient's history of C diff she was started on vancomycin tapering dose. Once all cultures were finalized acyclovir was discontinued, as well as her antibiotics, except for vancomycin tapering dose. The patient was discharged home with her daughter. Diet is regular, activities as tolerated. DISCHARGE MEDICATIONS INCLUDE: - Xanax 1-2 tablets every 4 hours - Vimpat 100 mg by mouth twice a day - Synthroid 75 mcg by mouth daily - mirtazapine 45 mg by mouth at bedtime Patient's Coumadin was held due to supratherapeutic INR. edited: 04/16/2016 1358 tkf ANGELA
== END 2016-03-26 14:03 | disposition home or self-care (01) | DRG 871 ==
LOC: M ED 10:00 → M ED INP 12:58 → M ICU 15:55 → M PCU 03-23 17:53 → M MS5PR 03-24 10:45
PROVIDERS: ADMIT Hospitalist; ATTEND Internal Medicine
PROC: 009U3ZX Drainage of Spinal Canal, Percutaneous Approach, Diagnostic (ICD-10-PCS; principal; 2016-03-20)
PROC: 05HM33Z Insertion of Infusion Device into Right Internal Jugular Vein, Percutaneous Approach (ICD-10-PCS; 2016-03-20)
PROC: 30233K1 Transfusion of Nonautologous Frozen Plasma into Peripheral Vein, Percutaneous Approach (ICD-10-PCS; 2016-03-20)
DX: A41.9 Sepsis, unspecified organism (principal); R65.21 Severe sepsis with septic shock; G93.41 Metabolic encephalopathy; I21.4 Non-ST elevation (NSTEMI) myocardial infarction; R57.1 Hypovolemic shock; E03.9 Hypothyroidism, unspecified; G40.909 Epilepsy, unspecified, not intractable, without status epilepticus; F41.9 Anxiety disorder, unspecified; F03.90 Unspecified dementia, unspecified severity, without behavioral disturbance, psychotic disturbance, mood disturbance, and anxiety; R74.0 Nonspecific elevation of levels of transaminase and lactic acid dehydrogenase [LDH]; R19.7 Diarrhea, unspecified; B33.8 Other specified viral diseases; Z86.718 Personal history of other venous thrombosis and embolism; Z86.711 Personal history of pulmonary embolism; Z79.899 Other long term (current) drug therapy; J45.909 Unspecified asthma, uncomplicated; Z88.0 Allergy status to penicillin; Z88.1 Allergy status to other antibiotic agents; Z88.8 Allergy status to other drugs, medicaments and biological substances; Z86.73 Personal history of transient ischemic attack (TIA), and cerebral infarction without residual deficits; H35.30 Unspecified macular degeneration; Z87.891 Personal history of nicotine dependence; Z79.01 Long term (current) use of anticoagulants; K59.00 Constipation, unspecified; F32.9 Major depressive disorder, single episode, unspecified; L89.159 Pressure ulcer of sacral region, unspecified stage

== ENCOUNTER 2016-03-31 13:26 | Inpatient (IN) | payer MEDICARE, MEDICAID ==
[~2016-03-31] VITALS: Ht 162.6 cm; Wt 51.4 kg
[~2016-03-31 13:26] MED LIST changes: +FIRS1SOL3 PO; +LOPE2CA PO; +RISATAB3 PO
[2016-03-31] MEDS ORDERED: methylPREDNISolone INJ 125 MG/2 ML VIAL (J2930) As Ordered ONE (13:55)
[2016-03-31] MEDS ORDERED: ALBUTEROL SULFATE 2.5 MG/0.5 ML INH NEB SOLN As Ordered ONE (14:11)
[2016-03-31] MEDS ORDERED: IPRATROPIUM 0.5MG/ALBUTEROL 2.5MG INH SOL UD 3ML (DUONEB)(J7620) As Ordered ONE ×2 (14:11→19:19)
[2016-03-31 14:24] LABS: BASO % 0.2 % (0.0-1.0); EOS # 0.1 K/mm3 (0.0-0.50); EOS % 1.1 % (0.0-3.0); LARGE UNSTAINED CELL # 0.2 K/mm3 (0.0-0.4); LARGE UNSTAINED CELL % 1.7 % (0.0-4.0); LYMPH # 0.2 K/mm3 (1.5-4.5); LYMPH % 2.4 % (24.0-44.0); MEAN CORPUSCULAR HEMOGLOBIN 30.9 pg (27.0-33.0); MEAN CORPUSCULAR VOLUME 93.4 fl (80.0-96.0); MONO # 0.4 K/mm3 (0.0-0.8); MONO % 4.2 % (0.0-5.0); NEUTROPHILS % 90.4 % (36.0-66.0); PLATELET COUNT, AUTOMATED 278 k/mm3 (150-450); RED CELL DISTRIBUTION WIDTH 13.6 % (11.5-14.5)
[2016-03-31 14:25] LABS: INR 2.77
[2016-03-31 14:45] LABS: ALBUMIN 3.1 GM/DL (3.2-5.2); ALBUMIN/GLOBULIN RATIO 0.79 (1.00-1.93); ALKALINE PHOSPHATASE 132 U/L (45-117); ALT/SGPT 24 U/L (12-78); AMYLASE 58 U/L (25-115); ANION GAP 9 MEQ/L (8-16); AST/SGOT 20 U/L (15-37); BILIRUBIN,DIRECT < 0.1 MG/DL (0.0-0.2); BILIRUBIN,TOTAL 0.3 MG/DL (0.2-1.0); BLOOD UREA NITROGEN 13 MG/DL (7-18); CALCIUM LEVEL 8.8 MG/DL (8.8-10.2); CARBON DIOXIDE LEVEL 25 MEQ/L (21-32); CHLORIDE LEVEL 105 MEQ/L (98-107); CREATININE FOR GFR 1.12 MG/DL (0.55-1.02); GLOMERULAR FILTRATION RATE 48.9 (>32); GLUCOSE, FASTING 111 MG/DL (83-110); POTASSIUM SERUM 4.9 MEQ/L (3.5-5.1); SODIUM LEVEL 139 MEQ/L (136-145)
[2016-03-31 14:47] LABS: ABG BASE EXCESS -2.3 (-2.0-2.0); ABG DEVICE NASAL CANN; ABG HCO3 22.2 MEQ/L (22.0-26.0); ABG PARTIAL PRESSURE CO2 37.6 mmHg (35.0-45.0); ABG PARTIAL PRESSURE O2 155.4 mmHg (75.0-100.0); ABG STANDARD HCO3 22.5 MEQ/L (22.0-26.0); ABG TOTAL CO2 23.4 MEQ/L (23.0-31.0)
--- NOTE | 2016-03-31 15:00 | REP ---
Portable chest x-ray: AP semi-erect view. History: Wheezing. Comparison study March 20, 2016. Findings: EKG monitoring electrodes and oxygen tubing are seen. The patient is rotated somewhat to the right. Moderate cardiomegaly is observed and the study is exposed at a relatively low level of inspiration. This is similar to the prior study. 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 No infiltrate is seen. Pulmonary vasculature is not increased. There is mild linear fibrosis in the left upper lobe region. Impression: Moderate cardiomegaly. Relatively low level of inspiration. Otherwise no acute disease. Signed by Sabino Greco MD 03/31/2016 03:23 P
[2016-03-31] MEDS ORDERED: ISOVUE-370 76% 100ML VIAL (Q9967) As Ordered ONE (15:25)
[2016-03-31] MEDS ORDERED: MEROPENEM 1 GM VIAL (J2185) As Ordered ONE (15:38)
[2016-03-31] MEDS ORDERED: VANCOMYCIN HCL 1,000 MG, VIAL MATE ADAPTER 1 EACH in D5W 250 ML IV SCH (15:45)
[2016-03-31] MEDS ORDERED: BACITAB3 PO (16:01)
[2016-03-31] MEDS ORDERED: QUES4POW PO (16:01)
[2016-03-31] MEDS ORDERED: VANC125C2 PO (16:01)
--- NOTE | 2016-03-31 16:04 | HPEPDOC ---
General Date of Admission 03/31/2016 - 403PM Chief Complaint The patient is a 89-year-old female Presented to the ER brought in by daughter because of fever and cough for the last 1 week. 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 diff colitis (currently on vancomycin PO). Patient was recently discharged from the hospital on 03/26 for septic shock / hypovolemic shock of unknown etiology and possible viral infection. She was discharged home and the family noted that on Thursday evening (03/29) she because to have a cough, scratchy through, runny nose and fever. She was taken to [facility], however they are not sure what was recommended. She was not admitted at that time. She presents now because of a fever of 101.4F at home, wheezing, productive cough but does not spit anything up. The family notes that she has been having non-formed stools, but is currently still on treatment for C. diff with vancomycin PO. They deny any change in frequency of urination or abnormal odors. They note that she had a decubitus ulcer in the past, but has been improving. Home Medications Scheduled Alprazolam (Xanax) 0.25 Mg Tab 1-2 TABS PO Q4H (Reported) SEE COMMENTS Cholestyramine (Questran) 4 Gm Pow 4 GM PO BID (Reported) Lacosamide (Vimpat) 100 Mg Tab 100 MG PO BID (Reported) 09, 1999 Lactobacillus Acidophilus (Bacid) 1 Tab Tab 1 TAB PO BID (Reported) Levothyroxine Sodium (Synthroid) 75 Mcg Tab 75 MCG PO DAILY (Reported) Mirtazapine (Mirtazapine) 45 Mg Tab 45 MG PO QHS (Reported) Vancomycin Hcl (Vancomycin HCl) 125 Mg Cap 125 MG PO ASDIRECTED (Reported) Warfarin Sod (Warfarin Sodium) 2.5 Mg Tab 2.5 MG PO 6XWK (Reported) THURSDAY-THURSDAY Allergies Coded Allergies: Penicillins (Verified Allergy, Severe, ANAPHYLAXIS w/ PCN; HAS TOLERATED ROCEPHIN in the PAST, 02/12/16) Metronidazole (Verified Allergy, Intermediate, HIVES, 05/29/12) Fluconazole (Verified Allergy, Unknown, 10/20/14) Pineapple (Verified Allergy, Unknown, CANNED ONLY, FRESH IS OK, 05/29/12) Erythromycin (Verified Adverse Reaction, Mild, GASTROINTESTINAL, 05/29/12) Aspirin (Verified Adverse Reaction, Unknown, TOLD TO AVOID DUE TO ASTHMA, 05/29/12) NSAIDs (Verified Adverse Reaction, Unknown, TOLD TO AVOID DUE TO ASTHMA, ) Past Medical History Medical History Asthma, Alzheimer, CVA (02/2014), DVT / PE (2013, 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 Review of Symptoms Other systems Unable to obtain Vital Signs - Vitals: BP 109/54, HR 99, RR 18, Sat 94%NC2L, Temp 100.6F - General: Lying in bed, No acute distress, Drowsy and sleeping - HEENT: NC, AT, Pupils reactive - CVS: Tachcardic, regular rhythm, +S1S2, - Lungs: Fair air entry bilaterally, Clear to auscultation, + Wheezing bilaterally - Abdomen: Soft, Non-distended, Non-tender, + Bowel sounds x 4 - Extremities: + PPx4, No lower extremity edema, No calf tenderness, Retracted lower extremities - Neuro: Moves all four extremities - Skin: Stage 1 decubitus ulcer appears to have been healing Laboratory Data Labs 24H Laboratory Tests 2 03/31/16 14:09: Activated Partial Thromboplast Time 44.6H, Aspartate Amino Transf (AST/SGOT) 20 , Alanine Aminotransferase (ALT/SGPT) 24, Alkaline Phosphatase 132H, Total Bilirubin 0.3, Direct Bilirubin < 0.1, Albumin 3.1L, Albumin/Globulin Ratio 0.79L, Amylase Level 58, Anion Gap 9, White Blood Count 10.0, Red Blood Count 3.53L, Hemoglobin 10.9L, Hematocrit 33.0L, Mean Corpuscular Volume 93.4, Mean Corpuscular Hemoglobin 30.9, Mean Corpuscular Hemoglobin Concent 33.0, Red Cell Distribution Width 13.6, Platelet Count 278, Neutrophils (%) (Auto) 90.4H, Lymphocytes (%) (Auto) 2.4L, Monocytes (%) (Auto) 4.2, Eosinophils (%) (Auto) 1.1, Basophils (%) (Auto) 0.2, Neutrophils # (Auto) 9.0H, Lymphocytes # (Auto) 0.2L, Monocytes # (Auto) 0.4, Eosinophils # (Auto) 0.1, Basophils # (Auto) 0.0, C-Reactive Protein, Quantitative 2.33H, Calcium Level 8.8, Glomerular Filtration Rate 48.9, Lactic Acid (Sepsis) 1.9, Large Unclassified Cells # 0.2, Large Unclassified Cells % 1.7, Prothromb Time International Ratio 2.77, Prothrombin Time 29.3H, Total Protein 7.0 03/31/16 14:29: Arterial Blood pH 7.390, Arterial Blood Partial Pressure CO2 37.6, Arterial Blood Partial Pressure O2 155.4H, Arterial Blood Total CO2 23.4, Arterial Blood HCO3 22.2, Arterial Blood Base Excess -2.3L, Arterial Blood Oxygen Saturation 99.3H, Blood Gas Bicarbonate Standard 22.5, Oxygen Delivery Device NASAL SUNNI 03/31/16 15:07: Urine Amorphous Sediment SMALLH, Urine Appearance CLOUDYH, Urine Color YELLOW, Urine pH 6.0, Urine Specific [place] 1.009, Urine Protein NEGATIVE, Urine Glucose (UA) NEGATIVE, Urine Ketones NEGATIVE, Urine Urobilinogen 0.2, Urine Bilirubin NEGATIVE, Urine Leukocyte Esterase 3+H, Urine Bacteria (Auto) 1+H, Urine Blood 2+H, Urine Calcium Carbonate Cryst(Auto) , Urine Calcium Oxalate Cryst (Auto) , Urine Calcium Phosphate Michelle (Auto) , Urine Cellular Casts , Urine Cystine Crystals , Urine Granular Casts (Auto) , Urine Hyaline Casts (Auto ) 0, Urine Leucine Crystals , Urine Mucus (Auto) SMALL, Urine Nitrite NEGATIVE, Urine Oval Fat Bodies (Auto) , Urine RBC (Auto) 46H, Urine Renal Epithelial Cells , Urine Sperm (Auto) , Urine Squamous Epithelial Cells 0, Urine Transitional Epithelial Cells , Urine Trichomonas (Auto) , Urine Triple Phosphate Cryst (Auto) , Urine Tyrosine Crystals , Urine Uric Acid Crystals ( Auto) , Urine WBC (Auto) TNTCH, Urine Waxy Casts (Auto) , Urine Yeast-Like Cells (Auto) CBC/BMP Laboratory Tests 03/31/16 14:09 Red Blood Count 3.53 L, Mean Corpuscular Volume 93.4, Mean Corpuscular Hemoglobin 30.9, Mean Corpuscular Hemoglobin Concent 33.0, Red Cell Distribution Width 13.6, Neutrophils (%) (Auto) 90.4 H, Lymphocytes (%) (Auto) 2.4 L, Monocytes (%) (Auto) 4.2, Eosinophils (%) (Auto) 1.1, Basophils (%) (Auto ) 0.2, Neutrophils # (Auto) 9.0 H, Lymphocytes # (Auto) 0.2 L, Monocytes # (Auto ) 0.4, Eosinophils # (Auto) 0.1, Basophils # (Auto) 0.0 Microbiology Microbiology 03/31/16 Blood Culture, Received Pending 03/31/16 Blood Culture, Received Pending 03/31/16 Respiratory Virus Panel (PCR) (TIFFANIE), Received Pending 03/31/16 Influenza Virus Type A Antigen - Final, Complete 03/31/16 Influenza Virus Type B Antigen - Final, Complete 03/31/16 Group A Streptococcus Screen (TIFFANIE), Received Pending 03/31/16 Urine Culture, Received Pending Plan / VTE VTE Prophylaxis Ordered?: Yes Plan Plan Fever possibly 2/2 HCAP pneumonia, possibly 2/2 urinary tract infection - Fever of 101.4 at home, shortness of breath and cough - Fever of 100.6 in ER, wheezing bilaterally - Is requiring supplemental oxygen to maintain saturation - Recent hospital admission for septic shock / hypovolemic shock, unclear source of infection suspected viral - UA with possible infection - CXR 03/31: no acute disease - Will check CTA chest - Will check blood culture, urine culture, respiratory panel - Will start Vancomycin and Meropenem Acute hypoxic respiratory failure possibly 2/2 acute exacerbation of asthma or HCAP pneumonia, possible PE - Found to be wheezing on physical exam - Will check CTA chest - will give short course of solumedrol for wheezing - will c/w breathing treatments Alzheimer CVA (02/2014) - has not been on aspirin because of allergy DVT / PE (2013, 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 diff colitis - Will c/w vancomycin PO base on outpatient regimen - Currently is still on week 1 of treatment will be completed at 04/01 - Then requires 3 additional weeks at tapering dose of vancomycin Normocytic anemia - Hg appears to be at baseline - Will continue to monitor for now CKD3 - Cr appears to be at baseline DVT prophylaxis - On full anticoagulation with Coumadin ROME SOLANO MD Mar 31, 2016 16:04
[2016-03-31] MEDS ORDERED: VANCOMYCIN 1000 MG/20 ML VIAL (J3370) As Ordered ONE (16:45)
--- NOTE | 2016-03-31 17:59 | REP ---
CT ANGIO CHEST: HISTORY: Shortness of breath. CONTRAST: Isovue-370/75 mL. COMPARISON: CT chest 09/24/2014. There are no filling defects in the main right and left pulmonary arteries and their proximal branches. The distal branches are not well seen. Linear densities are present in the lower lobes consistent with bibasilar atelectasis or scar. Areas of bronchiectasis are present throughout the lungs. There is no pleural effusion. Small lymph nodes less than 1 cm in size are present in the mediastinum. He ascending aorta is upper limits of normal in size. Atherosclerotic calcification is present in the thoracic aorta. The patient is status-post T12 and L1 kyphoplasty. There are old compression fractures of the T11 through L1 vertebral bodies with moderate to severe height loss. IMPRESSION: 1. Limited examination demonstrating no pulmonary embolism in the main right and left pulmonary arteries or their proximal branches. The distal branches are not well seen. 2. Bibasilar atelectasis or scarring. 3. There are areas of bronchiectasis throughout the lungs. Signed by Emmett Estes MD 03/31/2016 06:00 P
[2016-03-31] MEDS ORDERED: OSELTAMIVIR PHOSPHATE 75 MG CAP (TAMIFLU) As Ordered ONE (19:11)
[2016-03-31] MEDS: IPRATROPIUM 0.5MG/ALBUTEROL 2.5MG INH SOL UD 3ML (DUONEB)(J7620) NEB SCH (19:21)
--- NOTE | 2016-03-31 20:13 | ECGEPIP ---
Stationary ECG Study [facility] - ED Test Date: 2016-03-31 Pat Name: KYARA POLK Department: Room: - Gender: F Development Executive: reynaldo : [id number] Requested By: Sonu Thompson Order Number: [id number] Reading MD: Francisca Marks Measurements Intervals [place] Rate: 103 P: 30 GA: 169 QRS: 46 QRSD: 91 T: 82 QT: 361 QTc: 473 Interpretive Statements SINUS TACHYCARDIA MODERATE T-WAVE ABNORMALITY, CONSIDER ANTEROLATERAL ISCHEMIA, CLINICAL CORRELATION BASELINE ARTIFACT LIMITS INTERPRETATION Electronically Signed On 03-31-2016 20:13:11 EST by Francisca Marks
--- NOTE | 2016-03-31 20:43 | EDDOCDS ---
Nurse's Notes [facility] Name: Izabela Tovar Age: 89 yrs Sex: Female : 1925 Arrival Date: 03/31/2016 Time: 13:26 Bed 7 Private MD: Josef Calderon Diagnosis: Fever of other and unknown origin-with recent septic shock and no source determined per RN daughter;Dyspnea;Moderate persistent asthma with (acute) exacerbation;Cystitis;Influenza due to identified novel influenza A virus Presentation: 03/31 13:30 Red Flag criteria, patient assessed and taken directly to a bed. ml6 13:39 Presenting complaint: Per Chelsea, pt's daughter, pt with temp at home 101.4 today kc3 with extra strength Tylenol given at 1240. Pt exposed to viral illness by caregiver.. Pt with wheezing and shortness of breath at home. Suicide/Homicide risk assessment- the patient denies having any suicidal and/or homicidal ideations and does not present with any other emotional, behavioral or mental health complaints. Status: Patient is not a reference services head or dependent. 13:42 Adult Sepsis Screening: The patient does not have new or worsening altered mentation. kc3 Patient's respiratory rate is less than 22. Systolic blood pressure is greater than 100. Patient has a qSOFA score of 0- Negative Sepsis Screen. Transition of care: patient was not received from another setting of care. 13:42 Acuity: NIC Level 2 kc3 13:42 Method Of Arrival: Walkin/Carried/Asstd kc3 Triage Assessment: 13:30 General: Appears distressed, Behavior is appropriate for age, cooperative. Pain: Denies kc3 pain. The patient is triaged at the bedside. See Assessment in Nurses Notes section of ED record. Neurological: Level of Consciousness is lethargic. Cardiovascular: Rhythm is irregular. Respiratory: Onset: The symptoms/episode began/occurred today, Airway is patent Respiratory effort is even, labored, Respiratory pattern is regular, symmetrical, Breath sounds are coarse bilaterally. Parent/caregiver reports the patient having shortness of breath. Derm: Skin is pink, warm & dry. Musculoskeletal: Circulation, motion, and sensation intact. Historical: - Allergies: Aspirin; Erythromycin; Flagyl; PENICILLINS; Pineapple; Sedatives; - Home Meds: 1. Coumadin 2.5 mg Oral tab once daily every day except Tues and Fri 2. Synthroid 75 mcg Oral tab 1 tab once daily 3. mirtazapine 45 mg Oral tab 1 tab nightly 4. Vimpat 100 mg oral tab 1 tab 2 times per day 0900, 2000 5. Xanax 0.25mg to 0 .5 mg as needed Oral tab 1 tab two times per day as needed 0.25mg dose 0900, 0.25mg dose at 1430, 0.25mg dose 1700, 0.5mg dose at 1900 6. Questran 4 gram Oral powd 1 scoop 2 times per day 7. Probiotic oral oral twice a day 8. vancomycin 125 mg oral cap twice a day one cap twice a day x 1 week, one cap x 1 week, then one cap every other day x 1 week, then one cap every 3rd day x 1 week - PMHx: Asthma; Bronchitis; c-diff; CVA; Dementia; DVT; hearing loss; Hypothyroidism; lumbar fractures; Macular Degeneration; Osteoporosis; PE; Seizures; UTI's, Frequent; - PSHx: Cholecystectomy; back surgery; - Social history: Smoking status: other No barriers to communication noted, The patient speaks fluent Slovak, Speaks appropriately for age, smoked briefly during 20s. - Family history: Not pertinent. - : The pt / caregiver states he / she is on anticoagulants: coumadin. Home medication list is obtained from the patient. - Exposure Risk Screening:: None identified. Screenin:53 Screening information is obtained from family members. Fall risk: At risk due to kc3 immobility, The following interventions are performed due to a positive Fall Risk Screen: Fall Risk is added to Special Handling on the patient Summary Screen. A Fall Risk Bracelet was applied to the patient. Side Rails are placed in the up position. A Call [place] is given with instruction to call for help when getting out of bed. Fall Alert bracelet is placed on the patient. Assistance ADL's: Requires assistance with meal preparation, this assistance is provided by Home Health Aides, bathing, assistance is provided by Home Health Aides, dressing, assistance is provided by Home Health Aides, toileting, assistance is provided by Home Health Aides, ambulation, assistance is provided by Home Health Aides, housework, assistance is provided by Home Health Aides, medication administration, assistance is provided by Public Health nurses. Abuse/DV Screen: The patient / caregiver reports he/she is: not in a situation that causes fear, pain or injury. Nutritional screening: No deficits noted. Advance Directives: Currently, there is no health care proxy. There is an active Power of [employer] Installation Supervisor, Chelsea Tovar, daughter. home support is adequate. Assessment: 15:13 General: Appears comfortable, Behavior is appropriate for age, cooperative. kc3 Neurological: Level of Consciousness is confused. Cardiovascular: Rhythm is irregular Chest pain is denied. Respiratory: Airway is patent Respiratory effort is even, labored, Derm: Skin is pink, warm & dry. Musculoskeletal: Circulation, motion, and sensation intact. 16:00 General: Appears in no apparent distress, comfortable, Behavior is appropriate for age, kc3 cooperative. Neurological: Level of Consciousness is lethargic. Cardiovascular: Rhythm is irregular. Respiratory: Airway is patent Respiratory effort is even, labored. Derm: Skin is pink, warm & dry. 17:23 General: Appears in no apparent distress, comfortable, Behavior is appropriate for age, kc3 cooperative. Neurological: Level of Consciousness is lethargic. Cardiovascular: Rhythm is irregular. Respiratory: Airway is patent Respiratory effort is even, labored. Derm: Skin is pink, warm & dry. Musculoskeletal: Circulation, motion, and sensation intact. 17:55 General: Pt with BP of 85/49. Dr. Cisneros paged and made aware. New orders placed and kc3 performed. Will continue to monitor. Family at bedside. . Neurological: Level of Consciousness is lethargic. Respiratory: Airway is patent Respiratory effort is even, labored. Derm: Skin is pink, warm & dry. 18:30 General: Appears in no apparent distress, comfortable, Behavior is appropriate for age, kc3 cooperative, IV site reddened. IV discontinued. Pressure dressing placed. Will continue to monitor. . Cardiovascular: Rhythm is regular. Respiratory: Airway is patent Respiratory effort is even, labored. Derm: Skin is pink, warm & dry. 19:17 General: Appears in no apparent distress, Behavior is quiet. General: Normal saline nn1 500mL fluid bolus infusing per hospitalist orders. Blood pressure low, 89/54 at this time. Hospitalist aware. . Neurological: Level of Consciousness is confused, lethargic. Respiratory: Airway is patent Respiratory effort is even, labored, Respiratory therapist called for breathing treatment per families request due to patient O2 saturation of 90%. Derm: Skin is pink, warm & dry. 19:46 General: Family in room altering patient care, placing patient in trendelenburg nn1 position and increasing oxygen without orders. Family member grabbing IV bag and applying high pressure force to give patient fluids faster when this documenter entered room. Family also took glucometer in room. Lung sounds crackling, family had been made aware that RT was notified of need for breathing treatment. Charge nurse notified. . General:. Respiratory: Breath sounds with crackles. 20:40 General: Appears in no apparent distress, Behavior is appropriate for age, cooperative, nn1 quiet. General: Patient admitted to ICU, care transferred to Salud Osuna RN. Neurological: Level of Consciousness is confused, lethargic. Respiratory: Airway is patent Respiratory effort is even. Derm: Skin is pink, warm & dry. Vital Signs: 13:28 Pulse 114; Resp 20; Pulse Ox 92% on R/A; dem1 13:42 Temp 100.6(TE); Pulse Ox 99% 2 lpm ; kc3 13:44 BP 119 / 56; Pulse 104; Resp 20; Pulse Ox 98% 2 lpm ; Weight 49.9 kg; Height 5 ft. 4 kc3 in. (162.56 cm); 13:55 BP 113 / 61 (auto/); kc3 13:55 Pulse 100 MON; Pulse Ox 100% ; kc3 14:08 Pulse 100 MON; Pulse Ox 98% ; kc3 14:10 BP 107 / 59 (auto/); kc3 14:23 Pulse 96 MON; Pulse Ox 98% ; kc3 14:25 BP 98 / 51 (auto/); kc3 14:42 BP 107 / 58 (auto/); kc3 14:49 Pulse 104 MON; Pulse Ox 98% 2 lpm ; kc3 16:46 Pulse 94 MON; Pulse Ox 94% ; kc3 16:47 BP 104 / 54 (auto/); kc3 17:01 Pulse 92 MON; Pulse Ox 95% ; kc3 17:02 BP 92 / 55 (auto/); kc3 17:17 BP 91 / 51 (auto/); kc3 17:18 Pulse 88 MON; Pulse Ox 95% ; kc3 17:31 Pulse 88 MON; Pulse Ox 97% ; kc3 17:32 BP 78 / 43 (auto/); kc3 17:34 BP 84 / 46 (auto/); kc3 17:34 Pulse 86 MON; Pulse Ox 97% ; kc3 17:42 BP 86 / 49 (auto/); kc3 17:42 Pulse 86 MON; Pulse Ox 96% ; kc3 17:46 Pulse 86 MON; Pulse Ox 96% ; kc3 17:47 BP 85 / 49 (auto/); kc3 18:02 BP 84 / 48 (auto/); kc3 18:02 Pulse 88 MON; Pulse Ox 96% ; kc3 18:15 Pulse 90 MON; Pulse Ox 96% ; kc3 18:17 BP 87 / 51 (auto/); kc3 18:28 Pulse 86 MON; Pulse Ox 84% ; kc3 18:29 BP 119 / 58 (auto/); kc3 18:32 BP 112 / 57 (auto/); kc3 18:35 Pulse 86 MON; Pulse Ox 98% ; kc3 18:46 Pulse 86 MON; Pulse Ox 95% ; kc3 18:47 BP 101 / 53 (auto/); kc3 18:49 BP 102 / 54 (auto/); kc3 18:49 Pulse 86 MON; Pulse Ox 96% ; kc3 19:02 BP 90 / 51 (auto/); nn1 19:02 Pulse 86 MON; Pulse Ox 92% ; nn1 19:10 BP 81 / 48 (auto/); nn1 19:10 Pulse 80 MON; Pulse Ox 91% ; nn1 19:15 BP 92 / 51 (auto/); nn1 19:15 Pulse 78 MON; Pulse Ox 91% ; nn1 19:17 BP 89 / 54 (auto/); nn1 19:17 Pulse 78 MON; Pulse Ox 95% ; nn1 19:24 BP 86 / 54 (auto/); nn1 19:24 Pulse 78 MON; Pulse Ox 96% ; nn1 19:32 BP 80 / 50 (auto/); nn1 19:32 Pulse 78 MON; Pulse Ox 97% ; nn1 19:35 BP 84 / 50 (auto/); nn1 19:35 Pulse 80 MON; Pulse Ox 97% ; nn1 19:47 BP 103 / 54 (auto/); nn1 19:47 Pulse 84 MON; Pulse Ox 99% ; nn1 19:48 BP 102 / 56 (auto/); nn1 19:48 Pulse 84 MON; Pulse Ox 99% ; nn1 20:30 Pulse 84 MON; Pulse Ox 97% ; nn1 20:40 BP 111 / 59; Resp 22; Temp 97.8(T); Pulse Ox 98% on 3 lpm NC; nn1 13:44 Body Mass Index 18.88 (49.90 kg, 162.56 cm) 3 Vitals: 13:28 Log In Time: March 31, 2016 at 13:25. RN notified that patient meets Red Flag dem1 criteria. 14:45 Strep Screen is obtained and tested: Negative, a GATSNEG culture is ordered in [facility] and sent. ED Course: 13:27 Patient visited by Mariella Frias. dem1 13:27 Patient moved to Waiting dem1 13:28 Josef Calderon is Private Physician. dem1 13:28 Patient visited by Mariella Frias. dem1 13:33 Melissa Garrido,RN is Primary Nurse. kcs 13:33 Patient moved to 7 kcs 13:40 Sonu Thompson MD is Attending Physician. ml 13:40 Patient visited by Sonu Thompson MD. ml 13:43 Triage Initiated kc3 14:10 Patient visited by Marianne Mims PCA. bnb 14:10 EKG done. (by ED staff). Reviewed by Sonu Thompson MD. bnb 14:12 -Blood Culture Sent. kc3 14:12 Amylase Sent. kc3 14:12 C Reactive Protein Sent. kc3 14:12 CBC with Diff Sent. kc3 14:12 Lactic Acid (Heaton tube on ice) Sent. kc3 14:12 Liver Profile Sent. kc3 14:12 MED Profile Sent. kc3 14:12 PT/INR Sent. kc3 14:12 PTT Sent. kc3 14:12 Type & Screen Sent. kc3 14:19 [facility] Payment Agreement was scanned into [employer] and attached to record. jp5 14:34 BLOOD CULTURES Sent. kc3 14:45 Patient visited by Melissa Garrido,HENRY. kc3 15:11 Urinalysis Sent. kc3 15:11 Urine Culture Sent. kc3 15:15 Patient visited by Melissa Garrido RN. kc3 15:15 The patient / caregiver is instructed regarding the plan of care and ED course. kc3 15:15 Inserted saline lock: 20 gauge in right forearm and blood collected. The patient kc3 tolerated the procedure well. 15:24 RESPIRATORY PANEL Sent. kc3 15:25 -Influenza A&B Rapid Antigen - Nose Sent. kc3 15:25 Chest, 1 View Returned. EDMS 15:33 Cedric Cisneros is Hospitalizing Provider. ml 18:28 CT Chest Angio R/O PE Returned. EDMS 18:30 Patient visited by Jr Mims RN. jmb 18:30 Inserted saline lock: 20 gauge in left forearm The patient tolerated the procedure well.jmb 18:52 Discontinued IV lock intact, bleeding controlled, pressure dressing applied, No kc3 redness/swelling at site. IV right forearm dc'd. 20:39 No procedures done that require assistance. nn1 Administered Medications: 14:34 Drug: NS 0.9% 1000 ml [sodium chloride 0.9 % intravenous solution] Route: IV; Rate: kc3 bolus; Site: right forearm; 14:35 Drug: Solu-MEDROL 125 mg [Solu-Medrol 500 mg intravenous solution (125 mg)] Route: IVP; kc3 Site: right forearm; 14:41 Drug: Albuterol 5 mg [albuterol sulfate 2.5 mg/0.5 mL solution for nebulization (1 mL)] kjn Route: Nebulizer; 14:41 Drug: Albuterol-Ipratropium 3 ml [ipratropium-albuterol 0.5 mg-3 mg(2.5 mg base)/3 mL kjn nebulization soln (3 mL)] Route: Inhalation; 16:00 Drug: Merrem 500 mg Route: IV; Rate: bolus; Site: right forearm; kc3 16:58 Follow up: IV Status: Completed infusion kc3 16:57 Drug: vancomycin (loading dose for pt. wt. 40-49kg) 1000 mg [vancomycin 500 mg kc3 intravenous solution] Route: IVPB; Site: right forearm; 18:53 Follow up: IV Status: Completed infusion kc3 18:08 Drug: NS 0.9% 500 ml [sodium chloride 0.9 % intravenous solution] Route: IV; Rate: kc3 bolus; Site: right forearm; 18:53 Follow up: IV Status: Completed infusion kc3 19:21 Drug: NS 0.9% 500 ml [sodium chloride 0.9 % intravenous solution] Route: IV; Rate: nn1 bolus; Site: left hand; RT: 14:41 ABG's drawn from right radial artery allens test done and positive pressure held for 5 kjn minutes no bleeding noted pressure bandage applied specimen sent pt. tolerated well. 14:42 Initial Med Neb Given as ordered. Respiratory: Breath sounds are diminished Breath kjn sounds with wheezes bilaterally. Order Results: Lab Order: -Arterial Blood Gas; [facility]03/31/16 14:29 Test: ABG pH (ARTERIAL); Value: 7.390; Range: 7.350-7.450; Units: UNITS; Status: F Test: ABG PARTIAL PRESSURE CO2; Value: 37.6; Range: 35.0-45.0; Units: mmHg; Status: F Test: ABG PARTIAL PRESSURE O2; Value: 155.4; Range: 75.0-100.0; Abnormal: Above high normal; Units: mmHg; Status: F Test: ABG TOTAL CO2; Value: 23.4; Range: 23.0-31.0; Units: MEQ/L; Status: F Test: ABG HCO3; Value: 22.2; Range: 22.0-26.0; Units: MEQ/L; Status: F Test: ABG BASE EXCESS; Value: -2.3; Range: -2.0-2.0; Abnormal: Below low normal; Status: F Test: ABG STANDARD HCO3; Value: 22.5; Range: 22.0-26.0; Units: MEQ/L; Status: F Test: ABG O2 SATURATION; Value: 99.3; Range: 95.0-99.0; Abnormal: Above high normal; Units: %; Status: F Test: ABG DEVICE; Value: NASAL SUNNI; Status: F Lab Order: Amylase; SPEC03/31/16 14:09 Test: AMYLASE; Value: 58; Range: 25-115; Units: U/L; Status: F Lab Order: C Reactive Protein; 03/31/16 14:09 Test: C REACTIVE PROTEIN QUANTITATIV; Value: 2.33; Range: 0.00-0.30; Abnormal: Above high normal; Units: MG/DL; Status: F Lab Order: CBC with Diff; SPEC17 14:09 Test: WHITE BLOOD COUNT; Value: 10.0; Range: 4.0-10.0; Units: K/mm3; Status: F Test: RED BLOOD COUNT; Value: 3.53; Range: 4.00-5.40; Abnormal: Below low normal; Units: M/mm3; Status: F Test: HEMOGLOBIN; Value: 10.9; Range: 12.0-16.0; Abnormal: Below low normal; Units: g/dl; Status: F Test: HEMATOCRIT; Value: 33.0; Range: 36.0-47.0; Abnormal: Below low normal; Units: %; Status: F Test: MEAN CORPUSCULAR VOLUME; Value: 93.4; Range: 80.0-96.0; Units: fl; Status: F Test: MEAN CORPUSCULAR HEMOGLOBIN; Value: 30.9; Range: 27.0-33.0; Units: pg; Status: F Test: MEAN CORPUSCULAR HGB CONC; Value: 33.0; Range: 32.0-36.5; Units: g/dl; Status: F Test: RED CELL DISTRIBUTION WIDTH; Value: 13.6; Range: 11.5-14.5; Units: %; Status: F Test: PLATELET COUNT, AUTOMATED; Value: 278; Range: 150-450; Units: k/mm3; Status: F Test: NEUTROPHILS %; Value: 90.4; Range: 36.0-66.0; Abnormal: Above high normal; Units: %; Status: F Test: LYMPH %; Value: 2.4; Range: 24.0-44.0; Abnormal: Below low normal; Units: %; Status: F Test: MONO %; Value: 4.2; Range: 0.0-5.0; Units: %; Status: F Test: EOS %; Value: 1.1; Range: 0.0-3.0; Units: %; Status: F Test: BASO %; Value: 0.2; Range: 0.0-1.0; Units: %; Status: F Test: LARGE UNSTAINED CELL %; Value: 1.7; Range: 0.0-4.0; Units: %; Status: F Test: NEUTROPHILS #; Value: 9.0; Range: 1.8-7.7; Abnormal: Above high normal; Units: K/mm3; Status: F Test: LYMPH #; Value: 0.2; Range: 1.5-4.5; Abnormal: Below low normal; Units: K/mm3; Status: F Test: MONO #; Value: 0.4; Range: 0.0-0.8; Units: K/mm3; Status: F Test: EOS #; Value: 0.1; Range: 0.0-0.50; Units: K/mm3; Status: F Test: BASO #; Value: 0.0; Range: 0.0-0.2; Units: K/mm3; Status: F Test: LARGE UNSTAINED CELL #; Value: 0.2; Range: 0.0-0.4; Units: K/mm3; Status: F Lab Order: Lactic Acid (Heaton tube on ice); [facility]' 03/31/16 14:09 Test: LACTIC ACID SEPSIS PROTOCOL; Value: 1.9; Range: 0.4-2.0; Units: MMOL/L; Status: F Lab Order: Liver Profile; [facility] 03/31/16 14:09 Test: AST/SGOT; Value: 20; Range: 15-37; Units: U/L; Status: F Test: ALT/SGPT; Value: 24; Range: 12-78; Units: U/L; Status: F Test: ALKALINE PHOSPHATASE; Value: 132; Range: 45-117; Abnormal: Above high normal; Units: U/L; Status: F Test: BILIRUBIN,TOTAL; Value: 0.3; Range: 0.2-1.0; Units: MG/DL; Status: F Test: BILIRUBIN,DIRECT; Value: < 0.1; Range: 0.0-0.2; Units: MG/DL; Status: F Test: TOTAL PROTEIN; Value: 7.0; Range: 6.4-8.2; Units: GM/DL; Status: F Test: ALBUMIN; Value: 3.1; Range: 3.2-5.2; Abnormal: Below low normal; Units: GM/DL; Status: F Test: ALBUMIN/GLOBULIN RATIO; Value: 0.79; Range: 1.00-1.93; Abnormal: Below low normal; Status: F Lab Order: MED Profile; SPEC' /06/17 14:09 Test: GLUCOSE, FASTING; Value: 111; Range: 83-110; Abnormal: Above high normal; Units: MG/DL; Status: F Test: BLOOD UREA NITROGEN; Value: 13; Range: 7-18; Units: MG/DL; Status: F Test: CREATININE FOR GFR; Value: 1.12; Range: 0.55-1.02; Abnormal: Above high normal; Units: MG/DL; Status: F Test: GLOMERULAR FILTRATION RATE; Value: 48.9; Range: >32; Status: F Test: SODIUM LEVEL; Value: 139; Range: 136-145; Units: MEQ/L; Status: F Test: POTASSIUM SERUM; Value: 4.9; Range: 3.5-5.1; Units: MEQ/L; Status: F Test: CHLORIDE LEVEL; Value: 105; Range: 98-107; Units: MEQ/L; Status: F Test: CARBON DIOXIDE LEVEL; Value: 25; Range: 21-32; Units: MEQ/L; Status: F Test: ANION GAP; Value: 9; Range: 8-16; Units: MEQ/L; Status: F Test: CALCIUM LEVEL; Value: 8.8; Range: 8.8-10.2; Units: MG/DL; Status: F Test Note: ; Units are mL/min/1.73 m2 Chronic Kidney Disease Staging per NKF: Stage I & II GFR >=60 Normal to Mildly Decreased Stage III GFR 30-59 Moderately Decreased Stage IV GFR 15-29 Severely Decreased Stage V GFR <15 Very Little GFR Left ESRD GFR <15 on [place] Lab Order: PT/INR; [facility]03/31/16 14:09 Test: PROTHROMBIN TIME; Value: 29.3; Range: 12.3-14.5; Abnormal: Above high normal; Units: SECONDS; Status: F Test: INR; Value: 2.77; Status: F Test Note: ; THERAPUTIC HUMAN INR VALUES INDICATIONS NORMAL RANGES PROPHYLAXIS/TREATMENT OF: VENOUS THROMBOSIS 2.0-3.0 PULMONARY EMBOLISM 2.0-3.0 PREVENTION OF SYSTEMIC EMBOLISM FROM: TISSUE HEART VALVES 2.0-3.0 ACUTE MYOCARDIAL INFARCTION 2.0-3.0 VALVULAR HEART DISEASE 2.0-3.0 ATRIAL FIBRILLATION 2.0-3.0 MECHANICAL VALVES(HIGH RISK) 2.5-3.5 RECURRENT MYOCARDIAL INFARCTION 2.5-3.5 Lab Order: PTT; SPEC'M 03/31/16 14:09 Test: PARTIAL THROMBOPLASTIN TIME; Value: 44.6; Range: 26.6-37.1; Abnormal: Above high normal; Units: SECONDS; Status: F Lab Order: Urinalysis; SPEC'M 03/31/16 15:07 Test: APPEARANCE, URINE; Value: CLOUDY; Range: CLEAR; Abnormal: Above high normal; Status: F Test: COLOR, URINE; Value: YELLOW; Range: YELLOW; Status: F Test: PH,URINE; Value: 6.0; Range: 5.0-9.0; Units: UNITS; Status: F Test: SPECIFIC GRAVITY URINE AUTO; Value: 1.009; Range: 1.002-1.035; Status: F Test: PROTEIN, URINE AUTO; Value: NEGATIVE; Range: NEGATIVE; Units: mg/dL; Status: F Test: GLUCOSE, URINE (UA) AUTO; Value: NEGATIVE; Range: NEGATIVE; Units: mg/dL; Status: F Test: KETONE, URINE AUTO; Value: NEGATIVE; Range: NEGATIVE; Units: mg/dL; Status: F Test: UROBILINOGEN, URINE AUTO; Value: 0.2; Range: 0.0-2.0; Units: mg/dL; Status: F Test: BILIRUBIN, URINE AUTO; Value: NEGATIVE; Range: NEGATIVE; Status: F Test: NITRITE, URINE AUTO; Value: NEGATIVE; Range: NEGATIVE; Status: F Test: LEUKOCYTE ESTERASE, URINE AUTO; Value: 3+; Range: NEGATIVE; Abnormal: Above high normal; Status: F Test: BLOOD, URINE BLOOD; Value: 2+; Range: NEGATIVE; Abnormal: Above high normal; Status: F Test: WBC, URINE AUTO; Value: TNTC; Range: 0-3; Abnormal: Above high normal; Units: /HPF; Status: F Test: RBC, URINE AUTO; Value: 46; Range: 0-3; Abnormal: Above high normal; Units: /HPF; Status: F Test: BACTERIA, URINE AUTO; Value: 1+; Range: NEGATIVE; Abnormal: Above high normal; Status: F Test: SQUAMOUS EPITHELIAL CELL UR AU; Value: 0; Range: 0-6; Units: /HPF; Status: F Test: MUCUS, URINE; Value: SMALL; Range: NEGATIVE; Status: F Test: HYALINE CAST, URINE AUTO; Value: 0; Range: 0-1; Units: /LPF; Status: F Test: AMORPHOUS SEDIMENT; Value: SMALL; Range: NEGATIVE; Abnormal: Above high normal; Status: F Lab Order: -Influenza A&B Rapid Antigen - Nose; SPEC'M 03/31/16 15:23 Test: INFLUENZA A RAPID SCR by ICA; Value: INFLUENZA A RESULTS NEGATIVE; Status: F Test: INFLUENZA A RAPID SCR by ICA; Value: Comments:; Status: F Test: INFLUENZA B RAPID SCR by ICA; Value: INFLUENZA B RESULTS NEGATIVE; Status: F Test Note: ; The Influenza test is a direct rapid immunoassay for the qualitative detection of Influenza viral antigen. Cell culture (Viral Culture) testing should be considered to confirm NEGATIVE results and to assist in detecting other viruses that can provide similar clinical symptoms. Please contact the lab within 24 hours [phone]) if confirmatory testing is desired. Lab Order: RESPIRATORY PANEL; SPEC'M 03/31/16 15:23 Test: RESPIRATORY PANEL; Value: RP PANEL RESULT POSITIVE by PCR; Abnormal: Abnormal; Status: F Test: RESPIRATORY PANEL; Value: Comments:; Status: F Test: RESPIRATORY PANEL; Value: ORGANISM 1: INFLUENZA A H3; Status: F Test: RESPIRATORY PANEL; Value: INFLUENZA A H3; Status: F Test: RESPIRATORY PANEL; Value: Influenza H3 1 Influenza causes upper respiratory tract infections; Status: F Test: RESPIRATORY PANEL; Value: Influenza H3 10 Influenza A1H3.; Status: F Test: RESPIRATORY PANEL; Value: Influenza H3 2 with rapid onset of fever. During annual Influenza; Status: F Test: RESPIRATORY PANEL; Value: Influenza H3 3 epidemics, 5-20% of the population is affected.; Status: F Test: RESPIRATORY PANEL; Value: Influenza H3 4 Complications with viral or bacterial pneumonia; Status: F Test: RESPIRATORY PANEL; Value: Influenza H3 5 increase mortality from Influenza infections. There; Status: F Test: RESPIRATORY PANEL; Value: Influenza H3 6 are currently at least four antiviral medications; Status: F Test: RESPIRATORY PANEL; Value: Influenza H3 7 available for Influenza treatment (amantadine,; Status: F Test: RESPIRATORY PANEL; Value: Influenza H3 8 rimantadine, zanamivir and oseltamivir). More severe; Status: F Test: RESPIRATORY PANEL; Value: Influenza H3 9 disease and increased mortality are associated with; Status: F Test Note: ; This respiratory PCR panel detects Influenza A H1, H3 and 2009 H1 viruses, Influenza B virus, Respiratory syncytial virus, Human metapneumovirus, Parainfluenza virus 1, 2, 3 and 4, Adenovirus, Rhinovirus/Enterovirus, Coronavirus HKU1, NL63, OC43 and 229E, Bordetella pertussis, Mycoplasma pneumoniae and Chlamydia pneumoniae. Lab Order: Fingerstick Blood Sugar; SPEC'M 03/31/16 19:39 Test: BEDSIDE GLUCOSE; Value: 140; Range: 83-110; Abnormal: Above high normal; Units: MG/DL; Status: F Radiology Order: Chest, 1 View Test: Chest, 1 View REASON FOR EXAMINATION: wheezing; Portable chest x-ray: AP semi-erect view.; ; History: Wheezing.; ; Comparison study March 20, 2016.; ; Findings: EKG monitoring electrodes and oxygen tubing are seen. The patient is; rotated somewhat to the right. Moderate cardiomegaly is observed and the study; is exposed at a relatively low level of inspiration. This is similar to the; prior study. 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 No infiltrate is seen. Pulmonary vasculature is not increased. There is; mild linear fibrosis in the left upper lobe region.; ; Impression:; ; Moderate cardiomegaly. Relatively low level of inspiration. Otherwise no acute; disease.; ; ; Signed by; Sabino Greco MD 03/31/2016 03:23 P; Radiology Order: CT Chest Angio R/O PE Test: CT Chest Angio R/O PE REASON FOR EXAMINATION: sob; CT ANGIO CHEST:; ; HISTORY: Shortness of breath.; ; CONTRAST: Isovue-370/75 mL.; ; COMPARISON: CT chest 09/24/2014.; ; There are no filling defects in the main right and left pulmonary arteries and; their proximal branches. The distal branches are not well seen. Linear densities; are present in the lower lobes consistent with bibasilar atelectasis or scar.; Areas of bronchiectasis are present throughout the lungs. There is no pleural; effusion. Small lymph nodes less than 1 cm in size are present in the; mediastinum. He ascending aorta is upper limits of normal in size.; Atherosclerotic calcification is present in the thoracic aorta. The patient is; status-post T12 and L1 kyphoplasty. There are old compression fractures of the; T11 through L1 vertebral bodies with moderate to severe height loss.; ; IMPRESSION:; ; 1. Limited examination demonstrating no pulmonary embolism in the main right and; left pulmonary arteries or their proximal branches. The distal branches are; not well seen.; ; 2. Bibasilar atelectasis or scarring.; ; 3. There are areas of bronchiectasis throughout the lungs.; ; ; Signed by; Emmett Estes MD 03/31/2016 06:00 P; Outcome: 15:33 Decision to Hospitalize by Provider. ml 17:25 CT Study completed. kc3 20:38 Discharge Assessment: Patient awake, alert and oriented x 3. No cognitive and/or nn1 functional deficits noted. Patient verbalized understanding of disposition instructions. patient administered narcotics - no. The following High Risk Discharge criteria are identified: None. Admitted to ICU accompanied by nurse, accompanied by tech, family with patient, via stretcher, with oxygen, on monitor, with chart. critical. Admission hand-off: Report called to HENRY Brannon. Property :Personal belongings accompany Pt. 20:42 Patient left the ED. nn1 Signatures: Dispatcher [employer] EDMS Sonu Thompson MD MD ml Jessica Soares, RN RN Ender Church RN RN ml6 Mariella Frias dem1 Martina aDvenport JoshuaRN RN Mary GarciaRN RN nn1 Gisele French jp5 Melissa Garrido RN RN kc3 Marianne Mims, ELLIE PRODUCER ASSISTANT yanet Corrections: (The following items were deleted from the chart) 13:53 13:39 Presenting complaint: Per Chelsea, pt's daughter, pt with temp at home 101.4 kc3 today with no reported Tylenol or Ibuprofen given. Pt with wheezing at home. kc3 MTDD
--- NOTE | 2016-03-31 20:43 | EDDOCDS ---
Physician Documentation [facility] Name: Izabela Tovar Age: 89 yrs Sex: Female : 1925 Arrival Date: 03/31/2016 Time: 13:26 Bed 7 Private MD: Josef Calderon Disposition: 03/31/16 15:33 Hospitalization ordered by Cedric Cisneros for Inpatient Admission. Preliminary diagnosis are Fever of other and unknown origin - with recent septic shock and no source determined per RN daughter, Dyspnea, Moderate persistent asthma with (acute) exacerbation, Cystitis, Influenza due to identified novel influenza A virus. - Bed requested for ICU. - Status is Inpatient Admission. nn1 - Condition is Stable. - Problem is new. - Symptoms are unchanged. Historical: - Allergies: Aspirin; Erythromycin; Flagyl; PENICILLINS; Pineapple; Sedatives; - Home Meds: 1. Coumadin 2.5 mg Oral tab once daily every day except Tu and Fri 2. Synthroid 75 mcg Oral tab 1 tab once daily 3. mirtazapine 45 mg Oral tab 1 tab nightly 4. Vimpat 100 mg oral tab 1 tab 2 times per day 0900, 2000 5. Xanax 0.25mg to 0 .5 mg as needed Oral tab 1 tab two times per day as needed 0.25mg dose 0900, 0.25mg dose at 1430, 0.25mg dose 1700, 0.5mg dose at 1900 6. Questran 4 gram Oral powd 1 scoop 2 times per day 7. Probiotic oral oral twice a day 8. vancomycin 125 mg oral cap twice a day one cap twice a day x 1 week, one cap x 1 week, then one cap every other day x 1 week, then one cap every 3rd day x 1 week - PMHx: Asthma; Bronchitis; c-diff; CVA; Dementia; DVT; hearing loss; Hypothyroidism; lumbar fractures; Macular Degeneration; Osteoporosis; PE; Seizures; UTI's, Frequent; - PSHx: Cholecystectomy; back surgery; - Social history: Smoking status: other No barriers to communication noted, The patient speaks fluent Thai, Speaks appropriately for age, smoked briefly during 20s. - Family history: Not pertinent. - : The pt / caregiver states he / she is on anticoagulants: coumadin. Home medication list is obtained from the patient. - Exposure Risk Screening:: None identified. Vital Signs: 03/31 13:28 Pulse 114; Resp 20; Pulse Ox 92% on R/A; dem1 13:42 Temp 100.6(TE); Pulse Ox 99% 2 lpm ; kc3 13:44 BP 119 / 56; Pulse 104; Resp 20; Pulse Ox 98% 2 lpm ; Weight 49.9 kg / 110.01 lbs; kc3 Height 5 ft. 4 in. (162.56 cm); 13:55 BP 113 / 61 (auto/); kc3 13:55 Pulse 100 MON; Pulse Ox 100% ; kc3 14:08 Pulse 100 MON; Pulse Ox 98% ; kc3 14:10 BP 107 / 59 (auto/); kc3 14:23 Pulse 96 MON; Pulse Ox 98% ; kc3 14:25 BP 98 / 51 (auto/); kc3 14:42 BP 107 / 58 (auto/); kc3 14:49 Pulse 104 MON; Pulse Ox 98% 2 lpm ; kc3 16:46 Pulse 94 MON; Pulse Ox 94% ; kc3 16:47 BP 104 / 54 (auto/); kc3 17:01 Pulse 92 MON; Pulse Ox 95% ; kc3 17:02 BP 92 / 55 (auto/); kc3 17:17 BP 91 / 51 (auto/); kc3 17:18 Pulse 88 MON; Pulse Ox 95% ; kc3 17:31 Pulse 88 MON; Pulse Ox 97% ; kc3 17:32 BP 78 / 43 (auto/); kc3 17:34 BP 84 / 46 (auto/); kc3 17:34 Pulse 86 MON; Pulse Ox 97% ; kc3 17:42 BP 86 / 49 (auto/); kc3 17:42 Pulse 86 MON; Pulse Ox 96% ; kc3 17:46 Pulse 86 MON; Pulse Ox 96% ; kc3 17:47 BP 85 / 49 (auto/); kc3 18:02 BP 84 / 48 (auto/); kc3 18:02 Pulse 88 MON; Pulse Ox 96% ; kc3 18:15 Pulse 90 MON; Pulse Ox 96% ; kc3 18:17 BP 87 / 51 (auto/); kc3 18:28 Pulse 86 MON; Pulse Ox 84% ; kc3 18:29 BP 119 / 58 (auto/); kc3 18:32 BP 112 / 57 (auto/); kc3 18:35 Pulse 86 MON; Pulse Ox 98% ; kc3 18:46 Pulse 86 MON; Pulse Ox 95% ; kc3 18:47 BP 101 / 53 (auto/); kc3 18:49 BP 102 / 54 (auto/); kc3 18:49 Pulse 86 MON; Pulse Ox 96% ; kc3 19:02 BP 90 / 51 (auto/); nn1 19:02 Pulse 86 MON; Pulse Ox 92% ; nn1 19:10 BP 81 / 48 (auto/); nn1 19:10 Pulse 80 MON; Pulse Ox 91% ; nn1 19:15 BP 92 / 51 (auto/); nn1 19:15 Pulse 78 MON; Pulse Ox 91% ; nn1 19:17 BP 89 / 54 (auto/); nn1 19:17 Pulse 78 MON; Pulse Ox 95% ; nn1 19:24 BP 86 / 54 (auto/); nn1 19:24 Pulse 78 MON; Pulse Ox 96% ; nn1 19:32 BP 80 / 50 (auto/); nn1 19:32 Pulse 78 MON; Pulse Ox 97% ; nn1 19:35 BP 84 / 50 (auto/); nn1 19:35 Pulse 80 MON; Pulse Ox 97% ; nn1 19:47 BP 103 / 54 (auto/); nn1 19:47 Pulse 84 MON; Pulse Ox 99% ; nn1 19:48 BP 102 / 56 (auto/); nn1 19:48 Pulse 84 MON; Pulse Ox 99% ; nn1 20:30 Pulse 84 MON; Pulse Ox 97% ; nn1 20:40 BP 111 / 59; Resp 22; Temp 97.8(T); Pulse Ox 98% on 3 lpm NC; nn1 13:44 Body Mass Index 18.88 (49.90 kg, 162.56 cm) kc3 MDM: 13:49 -Blood Culture (Adults Only), peripheral from different site, or from device/port/PICC ml etc. if present ordered. 13:49 Call Respiratory ordered. ml 13:49 Scoreboard Operator/Pulse Ox/q 15 min VS ordered. ml 13:49 Oxygen at 4L/Min NC or Home dosage ordered. ml 13:49 Strep Screen, Nursing ordered. ml 13:50 Albuterol 5 mg Nebulizer once ordered. ml 13:50 Albuterol-Ipratropium 3 ml Inhalation once ordered. ml 13:50 Call Respiratory ordered. ml 13:50 Solu-MEDROL 125 mg IVP once ordered. ml 13:50 -Arterial Blood Gas Ordered. EDMS 13:50 -Blood Culture Ordered. EDMS 13:50 Amylase Ordered. EDMS 13:50 C Reactive Protein Ordered. EDMS 13:50 CBC with Diff Ordered. EDMS 13:50 Lactic Acid (Heaton tube on ice) Ordered. EDMS 13:50 Liver Profile Ordered. EDMS 13:50 MED Profile Ordered. EDMS 13:50 PT/INR Ordered. EDMS 13:50 PTT Ordered. EDMS 13:50 Type & Screen Ordered. EDMS 13:50 Urinalysis Ordered. EDMS 13:50 Urine Culture Ordered. EDMS 13:50 ECG WITH READING ER PHYS+CARDIAG ordered. EDMS 13:51 Chest, 1 View Ordered. EDMS 13:55 Call Respiratory complete. kc3 13:56 Call Respiratory complete. kc3 13:59 NS 0.9% 1000 ml IV at bolus once ordered. ml 14:02 -Blood Culture (Adults Only), peripheral from different site, or from device/port/PICC deg etc. if present complete. 14:03 BLOOD CULTURES Ordered. EDMS 14:19 [facility] Payment Agreement was scanned into [employer] and attached to record. jp5 14:19 Financial registration complete. jp5 14:47 GATS (NEGATIVE STREP SCREEN) Ordered. EDMS 14:54 -Arterial Blood Gas Reviewed. ml 14:54 C Reactive Protein Reviewed. ml 14:54 CBC with Diff Reviewed. ml 14:54 Liver Profile Reviewed. ml 14:54 MED Profile Reviewed. ml 14:54 PT/INR Reviewed. ml 14:54 PTT Reviewed. ml 14:54 Amylase Reviewed. ml 14:54 Lactic Acid (Heaton tube on ice) Reviewed. ml 14:56 Obtain sample by nasopharyngeal swab ordered. ml 14:58 -Influenza A&B Rapid Antigen - Nose Ordered. EDMS 15:03 BED REQUEST+ADM ordered. EDMS 15:03 Misc Funnel Coater Order ordered. ml 15:04 Misc Funnel Coater Order complete. deg 15:06 RESPIRATORY PANEL Ordered. EDMS 15:10 Merrem 500 mg IV at bolus once ordered. ml 15:12 Straight cath ordered. kc3 15:12 CT Chest Angio R/O PE Ordered. EDMS 15:13 vancomycin (loading dose for pt. wt. 40-49kg) 1000 mg IVPB once ordered. ml 15:48 Admission / Observation Status ordered. EDMS 16:34 Urinalysis Reviewed. ml 16:34 -Influenza A&B Rapid Antigen - Nose Reviewed. ml 16:34 Chest, 1 View Reviewed. ml 18:07 Admission / Observation Status ordered. EDMS 18:08 NS 0.9% 500 ml IV at bolus once ordered. kc3 19:21 NS 0.9% 500 ml IV at bolus once ordered. nn1 19:30 NPO DIET ordered. EDMS 19:31 LACTIC ACID LEVEL, LACTATE Ordered. EDMS 19:32 CBC WITH DIFFERENTIAL Ordered. EDMS 19:32 COMPLETE COMPHRENSIVE METABOLI Ordered. EDMS 19:32 MAGNESIUM LEVEL Ordered. EDMS 19:35 Cookie Swallow Mod.Ba Swallow Ordered. EDMS 20:02 Fingerstick Blood Sugar Ordered. EDMS Administered Medications: 14:34 Drug: NS 0.9% 1000 ml [sodium chloride 0.9 % intravenous solution] Route: IV; Rate: kc3 bolus; Site: right forearm; 14:35 Drug: Solu-MEDROL 125 mg [Solu-Medrol 500 mg intravenous solution (125 mg)] Route: IVP; kc3 Site: right forearm; 14:41 Drug: Albuterol 5 mg [albuterol sulfate 2.5 mg/0.5 mL solution for nebulization (1 mL)] kjn Route: Nebulizer; 14:41 Drug: Albuterol-Ipratropium 3 ml [ipratropium-albuterol 0.5 mg-3 mg(2.5 mg base)/3 mL kjn nebulization soln (3 mL)] Route: Inhalation; 16:00 Drug: Merrem 500 mg Route: IV; Rate: bolus; Site: right forearm; kc3 16:58 Follow up: IV Status: Completed infusion kc3 16:57 Drug: vancomycin (loading dose for pt. wt. 40-49kg) 1000 mg [vancomycin 500 mg kc3 intravenous solution] Route: IVPB; Site: right forearm; 18:53 Follow up: IV Status: Completed infusion kc3 18:08 Drug: NS 0.9% 500 ml [sodium chloride 0.9 % intravenous solution] Route: IV; Rate: kc3 bolus; Site: right forearm; 18:53 Follow up: IV Status: Completed infusion kc3 19:21 Drug: NS 0.9% 500 ml [sodium chloride 0.9 % intravenous solution] Route: IV; Rate: nn1 bolus; Site: left hand; Signatures: Dispatcher [employer] EDMS Sonu Thompson MD MD ml Cortney Delgado, Oxygen Tank Filler Unit deg Marylu Bullard RN RN [id number] Mary Castillo RN RN nn1 Gisele French jp5 Melissa Garrido RN RN kc3 Martina Davenport The chart was reviewed and I authenticate all verbal orders and agree with the evaluation and treatment provided.Corrections: (The following items were deleted from the chart) 15:11 13:49 Yee ordered. ml kc3 18:53 13:49 Intake and Output Hourly ordered. ml kc3 19:30 15:48 2 GRAM SODIUM DIET ordered. EDWY EDWY Attachments: 14:19 [facility] Payment Agreement jp5 [facility]
[2016-03-31 20:58] VITALS: BP 130/83
[2016-03-31] MEDS: NS 1,000 ML IV SCH (21:00)
[2016-03-31] MEDS ORDERED: OSELTAMIVIR PHOSPHATE 75 MG CAP (TAMIFLU) PO SCH (21:00)
[2016-03-31 21:04] VITALS: BP 172/106
[2016-03-31 21:24] VITALS: BP 140/91
--- NOTE | 2016-03-31 21:26 | PHACANCOPD ---
PHARMACY VANCOMYCIN DOSING Pt Demographics Demographics Patient Age:89 , Weight: 50KG , Gender: female Events Past 24 Hours Events Past 24 Hours: NO: Change in CrCl, Dialysis, Diuretic Therapy, Elevation in WBC, Fever, Other, Pending Diagnostics, Pending Procedures Vancomycin Vancomycin Target Ranges: 15-20 mcg/ml Vancomycin Load Y/N: Yes Load Dose Date Time Vancomycin Load Dose: 1GM Date: 03/31/16 Time: 17:00 Vancomycin Dose Date: 04/01/16. Current Vancomycin Dose: [750 MG IV Q12H (05:00)] Intermittent Dosing?: No Labs Labs Laboratory Tests 03/31/16 14:09 Red Blood Count 3.53 L, Mean Corpuscular Volume 93.4, Mean Corpuscular Hemoglobin 30.9, Mean Corpuscular Hemoglobin Concent 33.0, Red Cell Distribution Width 13.6, Neutrophils (%) (Auto) 90.4 H, Lymphocytes (%) (Auto) 2.4 L, Monocytes (%) (Auto) 4.2, Eosinophils (%) (Auto) 1.1, Basophils (%) (Auto ) 0.2, Neutrophils # (Auto) 9.0 H, Lymphocytes # (Auto) 0.2 L, Monocytes # (Auto ) 0.4, Eosinophils # (Auto) 0.1, Basophils # (Auto) 0.0 Micro Microbiology 03/31/16 Blood Culture, Received Pending 03/31/16 Blood Culture, Received Pending 03/31/16 Respiratory Virus Panel (PCR) (TIFFANIE) - Final, Complete Influenza A H3 03/31/16 Influenza Virus Type A Antigen - Final, Complete 03/31/16 Influenza Virus Type B Antigen - Final, Complete 03/31/16 Group A Streptococcus Screen (TIFFANIE), Received Pending 03/31/16 Urine Culture, Received Pending Creatinine Clearance Date:03/31/16. Creatinine Clearance: . Pending Labs VANCO TR 17:00 DOSE 04/01/16 (Due 16:00) Assessment and Plan Maintaining Current Dose?: Yes Reason for dose change: No Dose Change Pharmacist Note Pharmacist Note Date: 03/31/16. Pharm.D. note: 89YO FEMALE, 64": in HEIGHT, 50KG in WEIGHT, ADMITTED WITH POSITIVE Influ A, POSSIBLE HCAP AND POSSIBLE UTI. MEROPENEM 1GM IV Q12H (16:00) RENALLY DOSED AND VANCO 1GM IV GIVEN IN THE ER AT 17:00. WE WILL CONTINUE WITH VANCO 750MG IV Q12H STARTING AT 05:00 04/01/16 WE WILL OBTAIN A VANCO TR PRIOR TO HER 17:00 DOSE TOMORROW EVENING AND PROCEED FROM THERE. ERICKSON. Pharm.D. [facility] Mar 31, 2016 21:26
[2016-03-31 21:49] VITALS: BP 135/78
[2016-03-31] MEDS: VANCOMYCIN ORAL SOL 250MG/5ML ORAL SYRINGE PO SCH (23:03)
[2016-03-31] MEDS: WARFARIN SOD 2.5 MG TAB PO SCH (23:03)
[2016-03-31] MEDS: OSELTAMIVIR 6 MG/ML 60ML SUSP PO SCH (23:04)
[2016-03-31] MEDS: CHOLESTYRAMINE 4 GM PWD PKT PO SCH (23:04)
[2016-03-31] MEDS: MIRTAZAPINE 15 MG TAB PO SCH (23:05)
[2016-03-31] MEDS: methylPREDNISolone INJ 40 MG/1 ML VIAL (J2920) IV SCH (23:06)
[2016-03-31] MEDS: LACOSAMIDE 50 MG TAB (VIMPAT) PO SCH (23:06)
[2016-03-31 23:59] VITALS: BP 109/55
[2016-04-01] VITALS (12 sets, daily range): BP systolic 85–129; BP diastolic 50–66
[2016-04-01] MEDS: NS 1,000 ML IV SCH (01:42)
[2016-04-01] MEDS: IPRATROPIUM 0.5MG/ALBUTEROL 2.5MG INH SOL UD 3ML (DUONEB)(J7620) NEB SCH ×4 (03:34→19:53)
[2016-04-01] MEDS ORDERED: MEROPENEM INJ 1 GM in D5W MINI-BAG PLUS 100 ML IV SCH (04:00)
[2016-04-01] MEDS ORDERED: VANCOMYCIN HCL 750 MG, VIAL MATE ADAPTER 1 EACH in D5W 250 ML IV SCH (05:00)
[2016-04-01 06:27] LABS: EOS % 0.3 % (0.0-3.0); LARGE UNSTAINED CELL % 0.7 % (0.0-4.0); LYMPH # 0.2 K/mm3 (1.5-4.5); LYMPH % 3.5 % (24.0-44.0); MEAN CORPUSCULAR HEMOGLOBIN 29.7 pg (27.0-33.0); MEAN CORPUSCULAR HGB CONC 31.3 g/dl (32.0-36.5); MEAN CORPUSCULAR VOLUME 94.9 fl (80.0-96.0); MONO # 0.1 K/mm3 (0.0-0.8); MONO % 2.3 % (0.0-5.0); NEUTROPHILS # 4.6 K/mm3 (1.8-7.7); NEUTROPHILS % 93.1 % (36.0-66.0); PLATELET COUNT, AUTOMATED 229 k/mm3 (150-450); RED CELL DISTRIBUTION WIDTH 13.8 % (11.5-14.5)
[2016-04-01] MEDS: LEVOTHYROXINE 0.075 MG TAB (75 MCG) PO SCH (06:32)
[2016-04-01] MEDS: methylPREDNISolone INJ 40 MG/1 ML VIAL (J2920) IV SCH ×3 (06:33→21:49)
[2016-04-01 06:53] LABS: ALBUMIN 2.5 GM/DL (3.2-5.2); ALBUMIN/GLOBULIN RATIO 0.93 (1.00-1.93); BILIRUBIN,TOTAL 0.2 MG/DL (0.2-1.0); CALCIUM LEVEL 7.5 MG/DL (8.8-10.2); CREATININE FOR GFR 1.02 MG/DL (0.55-1.02); GLOMERULAR FILTRATION RATE 54.4 (>32); MAGNESIUM LEVEL 1.8 MG/DL (1.8-2.4); POTASSIUM SERUM 4.9 MEQ/L (3.5-5.1); TOTAL PROTEIN 5.2 GM/DL (6.4-8.2)
[2016-04-01] MEDS ORDERED: D5W/0.45% SODIUM CHLORIDE 1,000 ML IV SCH (07:30)
[2016-04-01 08:22] LABS: REASON FOR REVIEW COMPREHENSIVE REVIEW
[2016-04-01 08:28] LABS: PERCENT SATURATION 7.7 % (13.2-37.4)
[2016-04-01] MEDS: ALPRAZolam 0.25 MG TAB PO PRN ×3 (08:35→17:09)
[2016-04-01] MEDS: LACOSAMIDE 50 MG TAB (VIMPAT) PO SCH ×2 (08:35→20:28)
[2016-04-01] MEDS: VANCOMYCIN ORAL SOL 250MG/5ML ORAL SYRINGE PO SCH ×2 (08:35→21:49)
[2016-04-01] MEDS: CHOLESTYRAMINE 4 GM PWD PKT PO SCH ×2 (08:35→20:29)
[2016-04-01] MEDS: LACTOBACILLUS ACIDOPHILUS CAP (BACID) PO SCH ×3 (08:35→17:10)
[2016-04-01] MEDS ORDERED: VANCOMYCIN HCL 750 MG, VIAL MATE ADAPTER 1 EACH in D5W 250 ML IV ONE (09:00)
--- NOTE | 2016-04-01 09:04 | IPN ---
DATE: 04/01/2015 Patient seen and examined at the bedside. Chart has been reviewed. This morning patient is sleeping at the bedside. Patient's daughter is able to provide the history. Overnight patient's blood pressure is maintained well at mean arterial pressure of 70. No other issues per nursing overnight. Bowel movements have been minimal according to the daughter from home. She remains afebrile. She has been started on Tamiflu. Vital signs: Temperature 97.3, pulse 84, respiratory rate 22, blood pressure 90/54, 94% on 4 liters nasal cannula, and generally patient is arousable but sleeping at the bedside. Lungs are clear to auscultation. Positive expiratory wheezing faint. Heart: S1, S2, tachycardic. Abdomen: Soft, nontender, nondistended. Positive bowel sounds times four quadrants. Extremities: No lower extremity edema, calf tenderness, retractable lower extremities but able to move spontaneously. Skin: Stage I decubitus ulcer appears to be healing. Lab data: White count 5, hemoglobin 8.7, hematocrit 27, platelet count 229. Sodium 143, potassium 4.9, chloride 111, bicarbonate 22, BUN 16, creatinine 1.02 , glucose of 194, lactic acid of 2.5, magnesium of 1.8. Urinalysis: Cloudy urine , 2+ blood, negative nitrites, 3+ leukocyte esterase, too numerous to count WBCs, 1+ bacteria. Urine culture is pending. Respiratory virus panel: Influenza A H3. ASSESSMENT AND PLAN: This is an 89-year-old female, history of septic shock, Clostridium (C) difficile colitis on tapering dose of vancomycin, Alzheimer, CVA February 2014, deep venous thrombosis (DVT), pulmonary embolism (PE) 2013, currently on Coumadin, hypothyroidism, seizure disorder, oxygen requirement with sleep, recently admitted 03/26/2016 for septic shock, hypovolemia, possible viral infection presented to the hospital with fever of 101.4, foul urine. Current issues are: 1. Influenza A H3, currently on Tamiflu, renal dosing per pharmacy. 2. Recent Clostridium difficile colitis. On tapering dose of vancomycin. 3. Abnormal urinalysis. Prior history of Enterococcus faecalis sensitive to vancomycin and Streptococcus anginosus, Staphylococcus milleri sensitive to vancomycin.continue iv vanco until urine culture is finalized. 4. History of CVA, pulmonary embolism. On chronic Coumadin, currently on therapeutic INR of 2.77, continue with the same. 5. History of seizure disorder. On chronic ZenPad. 6. Anxiety. On as needed Xanax. 7. History of hypothyroidism. On Synthroid. 8. History of asthma. Nebulizers as needed. 9. Acute hypoxic respiratory failure secondary to asthma. CT chest had no consolidation or infiltrates. IV imipenem has been discontinued due to risk of recurrent C difficile. 10. Abnormal urinalysis with cloudy urine with history of Enterococcus faecalis. Will continue with intravenous vancomycin. 11. History of deep venous thrombosis (DVT), pulmonary embolism. On chronic Coumadin with therapeutic INR. Continue with home dose of Coumadin. 12. Normocytic anemia. Check iron studies, Hemoccult stool and peripheral blood smear. 13. Chronic kidney disease stage III. At baseline creatinine of 1.02. 14. Sepsis secondary to influenza. Lactic acid is improving. Continue with full supportive care. 15. DVT prophylaxis. On chronic Coumadin. DISPOSITION: Patient can be transferred to medical-surgical floor. Patient's mean arterial pressure 65-70. Continue with intravenous fluids for now. MTDD
[2016-04-01] MEDS ORDERED: VANCOMYCIN HCL 500 MG in D5W MINI-BAG PLUS 100 ML IV ONE (10:00)
--- NOTE | 2016-04-01 10:09 | PHACANCOPD ---
PHARMACY VANCOMYCIN DOSING Pt Demographics Demographics Patient Age:89 , Weight:55.000 , Gender: female Adjusted Body Weight 55KG Vancomycin Vancomycin Target Ranges: 10-20 mcg/ml Vancomycin Load Y/N: Yes Load Dose Date Time Vancomycin Load Dose: 1GM Date: 03/31/16 Time: 17:00 Vancomycin Dose Date: 04/01/16. Current Vancomycin Dose: [1G Q24H] Date: 04/01/16. Current Vancomycin Dose: [750 MG IV Q12H (05:00)] Intermittent Dosing?: No Labs Micro Microbiology 03/31/16 Blood Culture, Received Pending 03/31/16 Blood Culture, Received Pending 03/31/16 MRSA Screen, Received Pending 03/31/16 Respiratory Virus Panel (PCR) (TIFFANIE) - Final, Complete Influenza A H3 03/31/16 Influenza Virus Type A Antigen - Final, Complete 03/31/16 Influenza Virus Type B Antigen - Final, Complete 03/31/16 Group A Streptococcus Screen (TIFFANIE), Received Pending 03/31/16 Urine Culture, Received Pending Creatinine Clearance Date:03/31/16. Creatinine Clearance: . Pending Labs VANCO Trough below canceled when original vanco orders were discontinued. New trough was ordered for 04/02 VANCO TR 17:00 DOSE 04/01/16 (Due 16:00) Assessment and Plan Maintaining Current Dose?: No Reason for dose change: Other Pharmacist Note Pharmacist Note Date: 04/01/16. Pharmacist note: pt orders initiated 03/31 were discontinued then patient was restarted on vancomycin. Pt was given 750mg @9 04/01 a trough was scheduled for 8 on 04/02 to determine culmination of current dosing. Based on pt history with vancomycin at the end of february pt is tentatively set to start 1g q24h starting 04/02 at 9. pt will continue to be monitored and dose adjusted. Date: 03/31/16. Pharm.D. note: 89YO FEMALE, 64": in HEIGHT, 50KG in WEIGHT, ADMITTED WITH POSITIVE Influ A, POSSIBLE HCAP AND POSSIBLE UTI. MEROPENEM 1GM IV Q12H (16:00) RENALLY DOSED AND VANCO 1GM IV GIVEN IN THE ER AT 17:00. WE WILL CONTINUE WITH VANCO 750MG IV Q12H STARTING AT 05:00 04/01/16 WE WILL OBTAIN A VANCO TR PRIOR TO HER 17:00 DOSE TOMORROW EVENING AND PROCEED FROM THERE. ERICKSON. Pharm.D. [facility] Apr 01, 2016 10:09
[2016-04-01] MEDS ORDERED: SLF 3 ML SYR IV PRN (14:45)
[2016-04-01] MEDS: ACETAMINOPHEN TAB 650MG DOSE (2X325MG) PO PRN (15:06)
[2016-04-01] MEDS: MIRTAZAPINE 15 MG TAB PO SCH (20:28)
[2016-04-01] MEDS: OSELTAMIVIR 6 MG/ML 60ML SUSP PO SCH (21:48)
[2016-04-01] MEDS: SLF 3 ML SYR IV SCH (21:49)
[2016-04-02] MEDS: IPRATROPIUM 0.5MG/ALBUTEROL 2.5MG INH SOL UD 3ML (DUONEB)(J7620) NEB SCH ×4 (01:50→19:21)
[2016-04-02 06:00] VITALS: BP 100/54
[2016-04-02 06:07] LABS: EOS % 0.1 % (0.0-3.0); LARGE UNSTAINED CELL # 0.1 K/mm3 (0.0-0.4); LARGE UNSTAINED CELL % 0.7 % (0.0-4.0); LYMPH # 0.3 K/mm3 (1.5-4.5); LYMPH % 3.8 % (24.0-44.0); MEAN CORPUSCULAR HEMOGLOBIN 29.8 pg (27.0-33.0); MEAN CORPUSCULAR HGB CONC 31.5 g/dl (32.0-36.5); MEAN CORPUSCULAR VOLUME 94.5 fl (80.0-96.0); MONO # 0.3 K/mm3 (0.0-0.8); MONO % 3.4 % (0.0-5.0); PLATELET COUNT, AUTOMATED 265 k/mm3 (150-450); RED CELL DISTRIBUTION WIDTH 14.3 % (11.5-14.5); WHITE BLOOD COUNT 8.7 K/mm3 (4.0-10.0)
[2016-04-02 06:19] LABS: ALBUMIN 2.6 GM/DL (3.2-5.2); ALBUMIN/GLOBULIN RATIO 0.76 (1.00-1.93); BILIRUBIN,TOTAL 0.2 MG/DL (0.2-1.0); CALCIUM LEVEL 8.2 MG/DL (8.8-10.2); CREATININE FOR GFR 1.15 MG/DL (0.55-1.02); GLOMERULAR FILTRATION RATE 47.4 (>32); MAGNESIUM LEVEL 2.1 MG/DL (1.8-2.4)
[2016-04-02] MEDS: LEVOTHYROXINE 0.075 MG TAB (75 MCG) PO SCH (06:20)
[2016-04-02] MEDS: SLF 3 ML SYR IV SCH ×3 (06:20→21:54)
[2016-04-02] MEDS: methylPREDNISolone INJ 40 MG/1 ML VIAL (J2920) IV SCH ×3 (06:20→21:54)
[2016-04-02 06:41] LABS: POTASSIUM SERUM 5.2 MEQ/L (3.5-5.1)
[2016-04-02] MEDS ORDERED: VANCOMYCIN HCL 1,000 MG, VIAL MATE ADAPTER 1 EACH in D5W 250 ML IV SCH (09:00)
--- NOTE | 2016-04-02 10:00 | REP ---
Portable chest x-ray: Single view. History: Shortness of breath. Comparison chest x-ray March 31, 2016. Findings: The patient is rotated to the right for the current exposure. There is moderate to marked cardiomegaly again noted. The lungs are exposed at a relatively low level of inspiration. Prior vertebroplasty has been performed in the lower thoracic or upper lumbar spine. No definite infiltrate is seen. Impression: Patient rotated to the right. Low level of inspiration. Marked cardiomegaly again noted. No definite infiltrate. Signed by Sabino Greco MD 04/02/2016 03:02 P
[2016-04-02] MEDS: LACOSAMIDE 50 MG TAB (VIMPAT) PO SCH ×2 (10:02→20:47)
[2016-04-02] MEDS: LACTOBACILLUS ACIDOPHILUS CAP (BACID) PO SCH ×3 (10:02→17:13)
[2016-04-02] MEDS: CHOLESTYRAMINE 4 GM PWD PKT PO SCH ×2 (10:03→20:47)
--- NOTE | 2016-04-02 10:23 | IPN ---
DATE: 04/02/2016 Patient seen and examined at the bedside. Chart has been reviewed. Patient has been sleeping. Responsive with purposeful movements but does not cooperate with examination or open her eyes during the interview. Per nursing, patient had profuse diarrhea yesterday, about 11 voids, and is incontinent of urine. Gastrointestinal (GI) panel was negative for recurrent Clostridium (C) difficile. Patient was afebrile. Blood pressure was maintained at 102-130 systolic. Patient had a coughing fit times two, per the daughter, yesterday, requesting cough drops. Vital signs: Temperature 97, pulse 91, respiratory rate 20, blood pressure 100/54, 94% on 4 liters nasal cannula, and generally patient is arousable but sleeps quickly, not cooperative with examination. Lungs: Diminished breath sounds. Bilateral wheezing. Crackles at the bases. Heart: S1, S2, sinus rhythm. Abdomen is soft, nontender, nondistended. Extremities: No lower extremity edema, calf tenderness, retractable lower extremities. Skin: Stage I decubitus ulcer. LABORATORY DATA: White count 8.7, hemoglobin 8.6, hematocrit 27, platelet count 265. Sodium 145, potassium 5.2, chloride 113, bicarbonate 23, BUN 18, creatinine 1.15, glucose of 118, lactic acid of 3.7. Repeat lactic acid is not available. GI panel negative. Hemoccult stool negative. MRSA screen negative. RSV: Influenza A H3. Yeast in the urine. ASSESSMENT AND PLAN: This is an 89-year-old, FULL CODE female with history of septic shock, Clostridium difficile colitis on tapering dose of vancomycin, Alzheimer's dementia, CVA, contractures, deep venous thrombosis (DVT), pulmonary embolism (PE) 2013, on chronic Coumadin, hypothyroidism, seizure disorder, oxygen requirement for sleep, admitted 03/26/2016 for septic shock, hypovolemia and viral infection presents to the hospital with fever of 101 with foul urine. Urine culture grew out yeast. Patient has received vancomycin and imipenem for [address] chest shows no consolidation. RSV is positive for influenza. Patient is on Tamiflu and droplet precautions. CURRENT ISSUES: 1. Acute respiratory failure secondary to influenza A H. Currently on Tamiflu. Patient received antibiotics, vancomycin and imipenem on admission, which was discontinued due to no findings of consolidation and urine culture being negative for bacterial infection. Currently being managed with supplemental oxygen and nebulizer treatments if needed. 2. Clostridium colitis. On tapering dose of vancomycin. 3. Abnormal urinalysis. Prior history of Enterococcus faecalis sensitive to vancomycin and Streptococcus anginosus, Staphylococcus milleri sensitive to vancomycin. 4. History of CVA, pulmonary embolism. On chronic Coumadin. Continue with the same dose. 5. History of seizure disorder. On chronic antiepileptic. 6. Anxiety. On Xanax. 7. Hypothyroidism. On Synthroid. 8. Asthma. Nebulizer as needed. 9. History of deep venous thrombosis, pulmonary embolism. On Coumadin. 10. Normocytic anemia. Hemoccult stool negative. No acute indication for red blood cell transfusion. 11. Acute kidney injury. Repeat metabolic panel. 12. Sepsis secondary to influenza. Lactic acid is improving. Recheck level. 13. DVT prophylaxis. On chronic Coumadin. CODE STATUS: I have had a lengthy discussion with the patient's daughter, who is a registered nurse in the emergency room, regarding her advanced age and should she naturally she would appropriate for DO NOT RESUSCITATE, DO NOT INTUBATE. We will continue to provide full supportive care at this time. ANGELA
[2016-04-02] MEDS: ALPRAZolam 0.25 MG TAB PO PRN ×4 (10:34→21:54)
[2016-04-02 14:00] VITALS: BP 136/62
[2016-04-02] MEDS: VANCOMYCIN ORAL SOL 250MG/5ML ORAL SYRINGE PO SCH (14:17)
[2016-04-02] MEDS ORDERED: FUROSEMIDE 20 MG/2 ML VIAL (J1940) IV ONE (15:00)
[2016-04-02] MEDS: WARFARIN SOD 2.5 MG TAB PO SCH (17:13)
[2016-04-02 19:21] LABS: CALCIUM LEVEL 8.2 MG/DL (8.8-10.2); CREATININE FOR GFR 1.27 MG/DL (0.55-1.02); GLOMERULAR FILTRATION RATE 42.3 (>32); POTASSIUM SERUM 5.1 MEQ/L (3.5-5.1)
[2016-04-02] MEDS: MIRTAZAPINE 15 MG TAB PO SCH (20:47)
[2016-04-02] MEDS: NS 1,000 ML IV SCH (20:48)
--- NOTE | 2016-04-02 21:43 | EDDOCDS ---
Physician Documentation [facility] Name: Izabela Tovar Age: 89 yrs Sex: Female : 1925 Arrival Date: 03/31/2016 Time: 13:26 Bed 7 Private MD: Josef Calderon Disposition: 03/31/16 15:33 Hospitalization ordered by Cedric Cisneros for Inpatient Admission. Preliminary diagnosis are Fever of other and unknown origin - with recent septic shock and no source determined per RN daughter, Dyspnea, Moderate persistent asthma with (acute) exacerbation, Cystitis, Influenza due to identified novel influenza A virus. - Bed requested for ICU. - Status is Inpatient Admission. nn1 - Condition is Stable. - Problem is new. - Symptoms are unchanged. Historical: - Allergies: Aspirin; Erythromycin; Flagyl; PENICILLINS; Pineapple; Sedatives; - Home Meds: 1. Coumadin 2.5 mg Oral tab once daily every day except Tu and Fri 2. Synthroid 75 mcg Oral tab 1 tab once daily 3. mirtazapine 45 mg Oral tab 1 tab nightly 4. Vimpat 100 mg oral tab 1 tab 2 times per day 0900, 2000 5. Xanax 0.25mg to 0 .5 mg as needed Oral tab 1 tab two times per day as needed 0.25mg dose 0900, 0.25mg dose at 1430, 0.25mg dose 1700, 0.5mg dose at 1900 6. Questran 4 gram Oral powd 1 scoop 2 times per day 7. Probiotic oral oral twice a day 8. vancomycin 125 mg oral cap twice a day one cap twice a day x 1 week, one cap x 1 week, then one cap every other day x 1 week, then one cap every 3rd day x 1 week - PMHx: Asthma; Bronchitis; c-diff; CVA; Dementia; DVT; hearing loss; Hypothyroidism; lumbar fractures; Macular Degeneration; Osteoporosis; PE; Seizures; UTI's, Frequent; - PSHx: Cholecystectomy; back surgery; - Social history: Smoking status: other No barriers to communication noted, The patient speaks fluent Turkish, Speaks appropriately for age, smoked briefly during 20s. - Family history: Not pertinent. - : The pt / caregiver states he / she is on anticoagulants: coumadin. Home medication list is obtained from the patient. - Exposure Risk Screening:: None identified. Vital Signs: 03/31 13:28 Pulse 114; Resp 20; Pulse Ox 92% on R/A; dem1 13:42 Temp 100.6(TE); Pulse Ox 99% 2 lpm ; kc3 13:44 BP 119 / 56; Pulse 104; Resp 20; Pulse Ox 98% 2 lpm ; Weight 49.9 kg / 110.01 lbs; kc3 Height 5 ft. 4 in. (162.56 cm); 13:55 BP 113 / 61 (auto/); kc3 13:55 Pulse 100 MON; Pulse Ox 100% ; kc3 14:08 Pulse 100 MON; Pulse Ox 98% ; kc3 14:10 BP 107 / 59 (auto/); kc3 14:23 Pulse 96 MON; Pulse Ox 98% ; kc3 14:25 BP 98 / 51 (auto/); kc3 14:42 BP 107 / 58 (auto/); kc3 14:49 Pulse 104 MON; Pulse Ox 98% 2 lpm ; kc3 16:46 Pulse 94 MON; Pulse Ox 94% ; kc3 16:47 BP 104 / 54 (auto/); kc3 17:01 Pulse 92 MON; Pulse Ox 95% ; kc3 17:02 BP 92 / 55 (auto/); kc3 17:17 BP 91 / 51 (auto/); kc3 17:18 Pulse 88 MON; Pulse Ox 95% ; kc3 17:31 Pulse 88 MON; Pulse Ox 97% ; kc3 17:32 BP 78 / 43 (auto/); kc3 17:34 BP 84 / 46 (auto/); kc3 17:34 Pulse 86 MON; Pulse Ox 97% ; kc3 17:42 BP 86 / 49 (auto/); kc3 17:42 Pulse 86 MON; Pulse Ox 96% ; kc3 17:46 Pulse 86 MON; Pulse Ox 96% ; kc3 17:47 BP 85 / 49 (auto/); kc3 18:02 BP 84 / 48 (auto/); kc3 18:02 Pulse 88 MON; Pulse Ox 96% ; kc3 18:15 Pulse 90 MON; Pulse Ox 96% ; kc3 18:17 BP 87 / 51 (auto/); kc3 18:28 Pulse 86 MON; Pulse Ox 84% ; kc3 18:29 BP 119 / 58 (auto/); kc3 18:32 BP 112 / 57 (auto/); kc3 18:35 Pulse 86 MON; Pulse Ox 98% ; kc3 18:46 Pulse 86 MON; Pulse Ox 95% ; kc3 18:47 BP 101 / 53 (auto/); kc3 18:49 BP 102 / 54 (auto/); kc3 18:49 Pulse 86 MON; Pulse Ox 96% ; kc3 19:02 BP 90 / 51 (auto/); nn1 19:02 Pulse 86 MON; Pulse Ox 92% ; nn1 19:10 BP 81 / 48 (auto/); nn1 19:10 Pulse 80 MON; Pulse Ox 91% ; nn1 19:15 BP 92 / 51 (auto/); nn1 19:15 Pulse 78 MON; Pulse Ox 91% ; nn1 19:17 BP 89 / 54 (auto/); nn1 19:17 Pulse 78 MON; Pulse Ox 95% ; nn1 19:24 BP 86 / 54 (auto/); nn1 19:24 Pulse 78 MON; Pulse Ox 96% ; nn1 19:32 BP 80 / 50 (auto/); nn1 19:32 Pulse 78 MON; Pulse Ox 97% ; nn1 19:35 BP 84 / 50 (auto/); nn1 19:35 Pulse 80 MON; Pulse Ox 97% ; nn1 19:47 BP 103 / 54 (auto/); nn1 19:47 Pulse 84 MON; Pulse Ox 99% ; nn1 19:48 BP 102 / 56 (auto/); nn1 19:48 Pulse 84 MON; Pulse Ox 99% ; nn1 20:30 Pulse 84 MON; Pulse Ox 97% ; nn1 20:40 BP 111 / 59; Resp 22; Temp 97.8(T); Pulse Ox 98% on 3 lpm NC; nn1 13:44 Body Mass Index 18.88 (49.90 kg, 162.56 cm) kc3 MDM: 13:49 -Blood Culture (Adults Only), peripheral from different site, or from device/port/PICC ml etc. if present ordered. 13:49 Call Respiratory ordered. ml 13:49 Human Resource Internship/Pulse Ox/q 15 min VS ordered. ml 13:49 Oxygen at 4L/Min NC or Home dosage ordered. ml 13:49 Strep Screen, Nursing ordered. ml 13:50 Albuterol 5 mg Nebulizer once ordered. ml 13:50 Albuterol-Ipratropium 3 ml Inhalation once ordered. ml 13:50 Call Respiratory ordered. ml 13:50 Solu-MEDROL 125 mg IVP once ordered. ml 13:50 -Arterial Blood Gas Ordered. EDMS 13:50 -Blood Culture Ordered. EDMS 13:50 Amylase Ordered. EDMS 13:50 C Reactive Protein Ordered. EDMS 13:50 CBC with Diff Ordered. EDMS 13:50 Lactic Acid (Heaton tube on ice) Ordered. EDMS 13:50 Liver Profile Ordered. EDMS 13:50 MED Profile Ordered. EDMS 13:50 PT/INR Ordered. EDMS 13:50 PTT Ordered. EDMS 13:50 Type & Screen Ordered. EDMS 13:50 Urinalysis Ordered. EDMS 13:50 Urine Culture Ordered. EDMS 13:50 ECG WITH READING ER PHYS+CARDIAG ordered. EDMS 13:51 Chest, 1 View Ordered. EDMS 13:55 Call Respiratory complete. kc3 13:56 Call Respiratory complete. kc3 13:59 NS 0.9% 1000 ml IV at bolus once ordered. ml 14:02 -Blood Culture (Adults Only), peripheral from different site, or from device/port/PICC deg etc. if present complete. 14:03 BLOOD CULTURES Ordered. EDMS 14:19 [facility] Payment Agreement was scanned into [employer] and attached to record. jp5 14:19 Financial registration complete. jp5 14:47 GATS (NEGATIVE STREP SCREEN) Ordered. EDMS 14:54 -Arterial Blood Gas Reviewed. ml 14:54 C Reactive Protein Reviewed. ml 14:54 CBC with Diff Reviewed. ml 14:54 Liver Profile Reviewed. ml 14:54 MED Profile Reviewed. ml 14:54 PT/INR Reviewed. ml 14:54 PTT Reviewed. ml 14:54 Amylase Reviewed. ml 14:54 Lactic Acid (Heaton tube on ice) Reviewed. ml 14:56 Obtain sample by nasopharyngeal swab ordered. ml 14:58 -Influenza A&B Rapid Antigen - Nose Ordered. EDMS 15:03 BED REQUEST+ADM ordered. EDMS 15:03 Misc Student Development Coordinator Order ordered. ml 15:04 Misc Student Development Coordinator Order complete. deg 15:06 RESPIRATORY PANEL Ordered. EDMS 15:10 Merrem 500 mg IV at bolus once ordered. ml 15:12 Straight cath ordered. kc3 15:12 CT Chest Angio R/O PE Ordered. EDMS 15:13 vancomycin (loading dose for pt. wt. 40-49kg) 1000 mg IVPB once ordered. ml 15:48 Admission / Observation Status ordered. EDMS 16:34 Urinalysis Reviewed. ml 16:34 -Influenza A&B Rapid Antigen - Nose Reviewed. ml 16:34 Chest, 1 View Reviewed. ml 18:07 Admission / Observation Status ordered. EDMS 18:08 NS 0.9% 500 ml IV at bolus once ordered. kc3 19:21 NS 0.9% 500 ml IV at bolus once ordered. nn1 19:30 NPO DIET ordered. EDMS 19:31 LACTIC ACID LEVEL, LACTATE Ordered. EDMS 19:32 CBC WITH DIFFERENTIAL Ordered. EDMS 19:32 COMPLETE COMPHRENSIVE METABOLI Ordered. EDMS 19:32 MAGNESIUM LEVEL Ordered. EDMS 19:35 Cookie Swallow Mod.Ba Swallow Ordered. EDMS 20:02 Fingerstick Blood Sugar Ordered. EDMS 02/07 12:44 T-Sheet-- Draft Copy was scanned into [employer] and attached to record. gb 12:44 ECG/EKG was scanned into [employer] and attached to record. gb Administered Medications: 0206 14:34 Drug: NS 0.9% 1000 ml [sodium chloride 0.9 % intravenous solution] Route: IV; Rate: kc3 bolus; Site: right forearm; 14:35 Drug: Solu-MEDROL 125 mg [Solu-Medrol 500 mg intravenous solution (125 mg)] Route: IVP; kc3 Site: right forearm; 14:41 Drug: Albuterol 5 mg [albuterol sulfate 2.5 mg/0.5 mL solution for nebulization (1 mL)] kjn Route: Nebulizer; 14:41 Drug: Albuterol-Ipratropium 3 ml [ipratropium-albuterol 0.5 mg-3 mg(2.5 mg base)/3 mL kjn nebulization soln (3 mL)] Route: Inhalation; 16:00 Drug: Merrem 500 mg Route: IV; Rate: bolus; Site: right forearm; kc3 16:58 Follow up: IV Status: Completed infusion kc3 16:57 Drug: vancomycin (loading dose for pt. wt. 40-49kg) 1000 mg [vancomycin 500 mg kc3 intravenous solution] Route: IVPB; Site: right forearm; 18:53 Follow up: IV Status: Completed infusion kc3 18:08 Drug: NS 0.9% 500 ml [sodium chloride 0.9 % intravenous solution] Route: IV; Rate: kc3 bolus; Site: right forearm; 18:53 Follow up: IV Status: Completed infusion kc3 19:21 Drug: NS 0.9% 500 ml [sodium chloride 0.9 % intravenous solution] Route: IV; Rate: nn1 bolus; Site: left hand; Signatures: Dispatcher [employer] EDPR Sonu Thompson MD MD ml Cortney Delgado, Facilities Clerk Unit deg Dorcas Hassan, Reg Reg gb Marylu Bullard, RN RN [phone] Mary CastilloRN RN nn1 Gisele French jp5 Melissa Garrido,RN RN kc3 Martina Davenport The chart was reviewed and I authenticate all verbal orders and agree with the evaluation and treatment provided.Corrections: (The following items were deleted from the chart) 15:11 13:49 Yee ordered. ml kc3 18:53 13:49 Intake and Output Hourly ordered. ml 3 19:30 15:48 2 GRAM SODIUM DIET ordered. [facility] EDPR Attachments: 14:19 [facility] Payment Agreement jp5 04/01 12:44 T-Sheet-- Draft Copy 12:44 ECG/EKG Chart Complete MTDD
--- NOTE | 2016-04-02 21:43 | EDDOCDS ---
Physician Documentation [facility] Name: Izabela Tovar Age: 89 yrs Sex: Female : 1925 Arrival Date: 03/31/2016 Time: 13:26 Bed 7 Private MD: Josef Calderon Disposition: 03/31/16 15:33 Hospitalization ordered by Cedric Cisneros for Inpatient Admission. Preliminary diagnosis are Fever of other and unknown origin - with recent septic shock and no source determined per RN daughter, Dyspnea, Moderate persistent asthma with (acute) exacerbation, Cystitis, Influenza due to identified novel influenza A virus. - Bed requested for ICU. - Status is Inpatient Admission. nn1 - Condition is Stable. - Problem is new. - Symptoms are unchanged. Historical: - Allergies: Aspirin; Erythromycin; Flagyl; PENICILLINS; Pineapple; Sedatives; - Home Meds: 1. Coumadin 2.5 mg Oral tab once daily every day except Tu and Fri 2. Synthroid 75 mcg Oral tab 1 tab once daily 3. mirtazapine 45 mg Oral tab 1 tab nightly 4. Vimpat 100 mg oral tab 1 tab 2 times per day 0900, 2000 5. Xanax 0.25mg to 0 .5 mg as needed Oral tab 1 tab two times per day as needed 0.25mg dose 0900, 0.25mg dose at 1430, 0.25mg dose 1700, 0.5mg dose at 1900 6. Questran 4 gram Oral powd 1 scoop 2 times per day 7. Probiotic oral oral twice a day 8. vancomycin 125 mg oral cap twice a day one cap twice a day x 1 week, one cap x 1 week, then one cap every other day x 1 week, then one cap every 3rd day x 1 week - PMHx: Asthma; Bronchitis; c-diff; CVA; Dementia; DVT; hearing loss; Hypothyroidism; lumbar fractures; Macular Degeneration; Osteoporosis; PE; Seizures; UTI's, Frequent; - PSHx: Cholecystectomy; back surgery; - Social history: Smoking status: other No barriers to communication noted, The patient speaks fluent Danish, Speaks appropriately for age, smoked briefly during 20s. - Family history: Not pertinent. - : The pt / caregiver states he / she is on anticoagulants: coumadin. Home medication list is obtained from the patient. - Exposure Risk Screening:: None identified. Vital Signs: 03/31 13:28 Pulse 114; Resp 20; Pulse Ox 92% on R/A; dem1 13:42 Temp 100.6(TE); Pulse Ox 99% 2 lpm ; kc3 13:44 BP 119 / 56; Pulse 104; Resp 20; Pulse Ox 98% 2 lpm ; Weight 49.9 kg / 110.01 lbs; kc3 Height 5 ft. 4 in. (162.56 cm); 13:55 BP 113 / 61 (auto/); kc3 13:55 Pulse 100 MON; Pulse Ox 100% ; kc3 14:08 Pulse 100 MON; Pulse Ox 98% ; kc3 14:10 BP 107 / 59 (auto/); kc3 14:23 Pulse 96 MON; Pulse Ox 98% ; kc3 14:25 BP 98 / 51 (auto/); kc3 14:42 BP 107 / 58 (auto/); kc3 14:49 Pulse 104 MON; Pulse Ox 98% 2 lpm ; kc3 16:46 Pulse 94 MON; Pulse Ox 94% ; kc3 16:47 BP 104 / 54 (auto/); kc3 17:01 Pulse 92 MON; Pulse Ox 95% ; kc3 17:02 BP 92 / 55 (auto/); kc3 17:17 BP 91 / 51 (auto/); kc3 17:18 Pulse 88 MON; Pulse Ox 95% ; kc3 17:31 Pulse 88 MON; Pulse Ox 97% ; kc3 17:32 BP 78 / 43 (auto/); kc3 17:34 BP 84 / 46 (auto/); kc3 17:34 Pulse 86 MON; Pulse Ox 97% ; kc3 17:42 BP 86 / 49 (auto/); kc3 17:42 Pulse 86 MON; Pulse Ox 96% ; kc3 17:46 Pulse 86 MON; Pulse Ox 96% ; kc3 17:47 BP 85 / 49 (auto/); kc3 18:02 BP 84 / 48 (auto/); kc3 18:02 Pulse 88 MON; Pulse Ox 96% ; kc3 18:15 Pulse 90 MON; Pulse Ox 96% ; kc3 18:17 BP 87 / 51 (auto/); kc3 18:28 Pulse 86 MON; Pulse Ox 84% ; kc3 18:29 BP 119 / 58 (auto/); kc3 18:32 BP 112 / 57 (auto/); kc3 18:35 Pulse 86 MON; Pulse Ox 98% ; kc3 18:46 Pulse 86 MON; Pulse Ox 95% ; kc3 18:47 BP 101 / 53 (auto/); kc3 18:49 BP 102 / 54 (auto/); kc3 18:49 Pulse 86 MON; Pulse Ox 96% ; kc3 19:02 BP 90 / 51 (auto/); nn1 19:02 Pulse 86 MON; Pulse Ox 92% ; nn1 19:10 BP 81 / 48 (auto/); nn1 19:10 Pulse 80 MON; Pulse Ox 91% ; nn1 19:15 BP 92 / 51 (auto/); nn1 19:15 Pulse 78 MON; Pulse Ox 91% ; nn1 19:17 BP 89 / 54 (auto/); nn1 19:17 Pulse 78 MON; Pulse Ox 95% ; nn1 19:24 BP 86 / 54 (auto/); nn1 19:24 Pulse 78 MON; Pulse Ox 96% ; nn1 19:32 BP 80 / 50 (auto/); nn1 19:32 Pulse 78 MON; Pulse Ox 97% ; nn1 19:35 BP 84 / 50 (auto/); nn1 19:35 Pulse 80 MON; Pulse Ox 97% ; nn1 19:47 BP 103 / 54 (auto/); nn1 19:47 Pulse 84 MON; Pulse Ox 99% ; nn1 19:48 BP 102 / 56 (auto/); nn1 19:48 Pulse 84 MON; Pulse Ox 99% ; nn1 20:30 Pulse 84 MON; Pulse Ox 97% ; nn1 20:40 BP 111 / 59; Resp 22; Temp 97.8(T); Pulse Ox 98% on 3 lpm NC; nn1 13:44 Body Mass Index 18.88 (49.90 kg, 162.56 cm) kc3 MDM: 13:49 -Blood Culture (Adults Only), peripheral from different site, or from device/port/PICC ml etc. if present ordered. 13:49 Call Respiratory ordered. ml 13:49 Pediatric Assistant/Pulse Ox/q 15 min VS ordered. ml 13:49 Oxygen at 4L/Min NC or Home dosage ordered. ml 13:49 Strep Screen, Nursing ordered. ml 13:50 Albuterol 5 mg Nebulizer once ordered. ml 13:50 Albuterol-Ipratropium 3 ml Inhalation once ordered. ml 13:50 Call Respiratory ordered. ml 13:50 Solu-MEDROL 125 mg IVP once ordered. ml 13:50 -Arterial Blood Gas Ordered. EDMS 13:50 -Blood Culture Ordered. EDMS 13:50 Amylase Ordered. EDMS 13:50 C Reactive Protein Ordered. EDMS 13:50 CBC with Diff Ordered. EDMS 13:50 Lactic Acid (Heaton tube on ice) Ordered. EDMS 13:50 Liver Profile Ordered. EDMS 13:50 MED Profile Ordered. EDMS 13:50 PT/INR Ordered. EDMS 13:50 PTT Ordered. EDMS 13:50 Type & Screen Ordered. EDMS 13:50 Urinalysis Ordered. EDMS 13:50 Urine Culture Ordered. EDMS 13:50 ECG WITH READING ER PHYS+CARDIAG ordered. EDMS 13:51 Chest, 1 View Ordered. EDMS 13:55 Call Respiratory complete. kc3 13:56 Call Respiratory complete. kc3 13:59 NS 0.9% 1000 ml IV at bolus once ordered. ml 14:02 -Blood Culture (Adults Only), peripheral from different site, or from device/port/PICC deg etc. if present complete. 14:03 BLOOD CULTURES Ordered. EDMS 14:19 [facility] Payment Agreement was scanned into [employer] and attached to record. jp5 14:19 Financial registration complete. jp5 14:47 GATS (NEGATIVE STREP SCREEN) Ordered. EDMS 14:54 -Arterial Blood Gas Reviewed. ml 14:54 C Reactive Protein Reviewed. ml 14:54 CBC with Diff Reviewed. ml 14:54 Liver Profile Reviewed. ml 14:54 MED Profile Reviewed. ml 14:54 PT/INR Reviewed. ml 14:54 PTT Reviewed. ml 14:54 Amylase Reviewed. ml 14:54 Lactic Acid (Heaton tube on ice) Reviewed. ml 14:56 Obtain sample by nasopharyngeal swab ordered. ml 14:58 -Influenza A&B Rapid Antigen - Nose Ordered. EDMS 15:03 BED REQUEST+ADM ordered. EDMS 15:03 Misc Chemical Process Equipment Operator Order ordered. ml 15:04 Misc Chemical Process Equipment Operator Order complete. deg 15:06 RESPIRATORY PANEL Ordered. EDMS 15:10 Merrem 500 mg IV at bolus once ordered. ml 15:12 Straight cath ordered. kc3 15:12 CT Chest Angio R/O PE Ordered. EDMS 15:13 vancomycin (loading dose for pt. wt. 40-49kg) 1000 mg IVPB once ordered. ml 15:48 Admission / Observation Status ordered. EDMS 16:34 Urinalysis Reviewed. ml 16:34 -Influenza A&B Rapid Antigen - Nose Reviewed. ml 16:34 Chest, 1 View Reviewed. ml 18:07 Admission / Observation Status ordered. EDMS 18:08 NS 0.9% 500 ml IV at bolus once ordered. kc3 19:21 NS 0.9% 500 ml IV at bolus once ordered. nn1 19:30 NPO DIET ordered. EDMS 19:31 LACTIC ACID LEVEL, LACTATE Ordered. EDMS 19:32 CBC WITH DIFFERENTIAL Ordered. EDMS 19:32 COMPLETE COMPHRENSIVE METABOLI Ordered. EDMS 19:32 MAGNESIUM LEVEL Ordered. EDMS 19:35 Cookie Swallow Mod.Ba Swallow Ordered. EDMS 20:02 Fingerstick Blood Sugar Ordered. EDMS 02/07 12:44 T-Sheet-- Draft Copy was scanned into [employer] and attached to record. gb 12:44 ECG/EKG was scanned into [employer] and attached to record. gb Administered Medications: 0206 14:34 Drug: NS 0.9% 1000 ml [sodium chloride 0.9 % intravenous solution] Route: IV; Rate: kc3 bolus; Site: right forearm; 14:35 Drug: Solu-MEDROL 125 mg [Solu-Medrol 500 mg intravenous solution (125 mg)] Route: IVP; kc3 Site: right forearm; 14:41 Drug: Albuterol 5 mg [albuterol sulfate 2.5 mg/0.5 mL solution for nebulization (1 mL)] kjn Route: Nebulizer; 14:41 Drug: Albuterol-Ipratropium 3 ml [ipratropium-albuterol 0.5 mg-3 mg(2.5 mg base)/3 mL kjn nebulization soln (3 mL)] Route: Inhalation; 16:00 Drug: Merrem 500 mg Route: IV; Rate: bolus; Site: right forearm; kc3 16:58 Follow up: IV Status: Completed infusion kc3 16:57 Drug: vancomycin (loading dose for pt. wt. 40-49kg) 1000 mg [vancomycin 500 mg kc3 intravenous solution] Route: IVPB; Site: right forearm; 18:53 Follow up: IV Status: Completed infusion kc3 18:08 Drug: NS 0.9% 500 ml [sodium chloride 0.9 % intravenous solution] Route: IV; Rate: kc3 bolus; Site: right forearm; 18:53 Follow up: IV Status: Completed infusion kc3 19:21 Drug: NS 0.9% 500 ml [sodium chloride 0.9 % intravenous solution] Route: IV; Rate: nn1 bolus; Site: left hand; Signatures: Dispatcher [employer] EDNH Sonu Thompson MD MD ml Cortney Delgado, Hydraulic Controls Technician Unit deg Dorcas Hassan, Reg Reg gb Marylu Bullard, RN RN [id number] Mary CastilloRN RN nn1 Gisele French jp5 Melissa Garrido,RN RN kc3 Martina Davenport The chart was reviewed and I authenticate all verbal orders and agree with the evaluation and treatment provided.Corrections: (The following items were deleted from the chart) 15:11 13:49 Yee ordered. ml kc3 18:53 13:49 Intake and Output Hourly ordered. ml 3 19:30 15:48 2 GRAM SODIUM DIET ordered. [facility] EDNH Attachments: 14:19 [facility] Payment Agreement jp5 04/01 12:44 T-Sheet-- Draft Copy 12:44 ECG/EKG Chart Complete MTDD
--- NOTE | 2016-04-02 21:45 | EDDOCDS ---
Nurse's Notes [facility] Name: Izabela Tovar Age: 89 yrs Sex: Female : 1925 Arrival Date: 03/31/2016 Time: 13:26 Bed 7 Private MD: Josef Calderon Diagnosis: Fever of other and unknown origin-with recent septic shock and no source determined per RN daughter;Dyspnea;Moderate persistent asthma with (acute) exacerbation;Cystitis;Influenza due to identified novel influenza A virus Presentation: 03/31 13:30 Red Flag criteria, patient assessed and taken directly to a bed. ml6 13:39 Presenting complaint: Per Chelsea, pt's daughter, pt with temp at home 101.4 today kc3 with extra strength Tylenol given at 1240. Pt exposed to viral illness by caregiver.. Pt with wheezing and shortness of breath at home. Suicide/Homicide risk assessment- the patient denies having any suicidal and/or homicidal ideations and does not present with any other emotional, behavioral or mental health complaints. Status: Patient is not a automatic teller machine servicer or dependent. 13:42 Adult Sepsis Screening: The patient does not have new or worsening altered mentation. kc3 Patient's respiratory rate is less than 22. Systolic blood pressure is greater than 100. Patient has a qSOFA score of 0- Negative Sepsis Screen. Transition of care: patient was not received from another setting of care. 13:42 Acuity: NIC Level 2 kc3 13:42 Method Of Arrival: Walkin/Carried/Asstd kc3 Triage Assessment: 13:30 General: Appears distressed, Behavior is appropriate for age, cooperative. Pain: Denies kc3 pain. The patient is triaged at the bedside. See Assessment in Nurses Notes section of ED record. Neurological: Level of Consciousness is lethargic. Cardiovascular: Rhythm is irregular. Respiratory: Onset: The symptoms/episode began/occurred today, Airway is patent Respiratory effort is even, labored, Respiratory pattern is regular, symmetrical, Breath sounds are coarse bilaterally. Parent/caregiver reports the patient having shortness of breath. Derm: Skin is pink, warm & dry. Musculoskeletal: Circulation, motion, and sensation intact. Historical: - Allergies: Aspirin; Erythromycin; Flagyl; PENICILLINS; Pineapple; Sedatives; - Home Meds: 1. Coumadin 2.5 mg Oral tab once daily every day except Tues and Fri 2. Synthroid 75 mcg Oral tab 1 tab once daily 3. mirtazapine 45 mg Oral tab 1 tab nightly 4. Vimpat 100 mg oral tab 1 tab 2 times per day 0900, 2000 5. Xanax 0.25mg to 0 .5 mg as needed Oral tab 1 tab two times per day as needed 0.25mg dose 0900, 0.25mg dose at 1430, 0.25mg dose 1700, 0.5mg dose at 1900 6. Questran 4 gram Oral powd 1 scoop 2 times per day 7. Probiotic oral oral twice a day 8. vancomycin 125 mg oral cap twice a day one cap twice a day x 1 week, one cap x 1 week, then one cap every other day x 1 week, then one cap every 3rd day x 1 week - PMHx: Asthma; Bronchitis; c-diff; CVA; Dementia; DVT; hearing loss; Hypothyroidism; lumbar fractures; Macular Degeneration; Osteoporosis; PE; Seizures; UTI's, Frequent; - PSHx: Cholecystectomy; back surgery; - Social history: Smoking status: other No barriers to communication noted, The patient speaks fluent Vietnamese, Speaks appropriately for age, smoked briefly during 20s. - Family history: Not pertinent. - : The pt / caregiver states he / she is on anticoagulants: coumadin. Home medication list is obtained from the patient. - Exposure Risk Screening:: None identified. Screenin:53 Screening information is obtained from family members. Fall risk: At risk due to kc3 immobility, The following interventions are performed due to a positive Fall Risk Screen: Fall Risk is added to Special Handling on the patient Summary Screen. A Fall Risk Bracelet was applied to the patient. Side Rails are placed in the up position. A Call Mckin[place] is given with instruction to call for help when getting out of bed. Fall Alert bracelet is placed on the patient. Assistance ADL's: Requires assistance with meal preparation, this assistance is provided by Home Health Aides, bathing, assistance is provided by Home Health Aides, dressing, assistance is provided by Home Health Aides, toileting, assistance is provided by Home Health Aides, ambulation, assistance is provided by Home Health Aides, housework, assistance is provided by Home Health Aides, medication administration, assistance is provided by Public Health nurses. Abuse/DV Screen: The patient / caregiver reports he/she is: not in a situation that causes fear, pain or injury. Nutritional screening: No deficits noted. Advance Directives: Currently, there is no health care proxy. There is an active Power of Program Manager Transportation, Chelsea Tovar, daughter. home support is adequate. Assessment: 15:13 General: Appears comfortable, Behavior is appropriate for age, cooperative. kc3 Neurological: Level of Consciousness is confused. Cardiovascular: Rhythm is irregular Chest pain is denied. Respiratory: Airway is patent Respiratory effort is even, labored, Derm: Skin is pink, warm & dry. Musculoskeletal: Circulation, motion, and sensation intact. 16:00 General: Appears in no apparent distress, comfortable, Behavior is appropriate for age, kc3 cooperative. Neurological: Level of Consciousness is lethargic. Cardiovascular: Rhythm is irregular. Respiratory: Airway is patent Respiratory effort is even, labored. Derm: Skin is pink, warm & dry. 17:23 General: Appears in no apparent distress, comfortable, Behavior is appropriate for age, kc3 cooperative. Neurological: Level of Consciousness is lethargic. Cardiovascular: Rhythm is irregular. Respiratory: Airway is patent Respiratory effort is even, labored. Derm: Skin is pink, warm & dry. Musculoskeletal: Circulation, motion, and sensation intact. 17:55 General: Pt with BP of 85/49. Dr. Cisneros paged and made aware. New orders placed and kc3 performed. Will continue to monitor. Family at bedside. . Neurological: Level of Consciousness is lethargic. Respiratory: Airway is patent Respiratory effort is even, labored. Derm: Skin is pink, warm & dry. 18:30 General: Appears in no apparent distress, comfortable, Behavior is appropriate for age, kc3 cooperative, IV site reddened. IV discontinued. Pressure dressing placed. Will continue to monitor. . Cardiovascular: Rhythm is regular. Respiratory: Airway is patent Respiratory effort is even, labored. Derm: Skin is pink, warm & dry. 19:17 General: Appears in no apparent distress, Behavior is quiet. General: Normal saline nn1 500mL fluid bolus infusing per hospitalist orders. Blood pressure low, 89/54 at this time. Hospitalist aware. . Neurological: Level of Consciousness is confused, lethargic. Respiratory: Airway is patent Respiratory effort is even, labored, Respiratory therapist called for breathing treatment per families request due to patient O2 saturation of 90%. Derm: Skin is pink, warm & dry. 19:46 General: Family in room altering patient care, placing patient in trendelenburg nn1 position and increasing oxygen without orders. Family member grabbing IV bag and applying high pressure force to give patient fluids faster when this documenter entered room. Family also took glucometer in room. Lung sounds crackling, family had been made aware that RT was notified of need for breathing treatment. Charge nurse notified. . General:. Respiratory: Breath sounds with crackles. 20:40 General: Appears in no apparent distress, Behavior is appropriate for age, cooperative, nn1 quiet. General: Patient admitted to ICU, care transferred to Salud Osuna RN. Neurological: Level of Consciousness is confused, lethargic. Respiratory: Airway is patent Respiratory effort is even. Derm: Skin is pink, warm & dry. Vital Signs: 13:28 Pulse 114; Resp 20; Pulse Ox 92% on R/A; dem1 13:42 Temp 100.6(TE); Pulse Ox 99% 2 lpm ; kc3 13:44 BP 119 / 56; Pulse 104; Resp 20; Pulse Ox 98% 2 lpm ; Weight 49.9 kg; Height 5 ft. 4 kc3 in. (162.56 cm); 13:55 BP 113 / 61 (auto/); kc3 13:55 Pulse 100 MON; Pulse Ox 100% ; kc3 14:08 Pulse 100 MON; Pulse Ox 98% ; kc3 14:10 BP 107 / 59 (auto/); kc3 14:23 Pulse 96 MON; Pulse Ox 98% ; kc3 14:25 BP 98 / 51 (auto/); kc3 14:42 BP 107 / 58 (auto/); kc3 14:49 Pulse 104 MON; Pulse Ox 98% 2 lpm ; kc3 16:46 Pulse 94 MON; Pulse Ox 94% ; kc3 16:47 BP 104 / 54 (auto/); kc3 17:01 Pulse 92 MON; Pulse Ox 95% ; kc3 17:02 BP 92 / 55 (auto/); kc3 17:17 BP 91 / 51 (auto/); kc3 17:18 Pulse 88 MON; Pulse Ox 95% ; kc3 17:31 Pulse 88 MON; Pulse Ox 97% ; kc3 17:32 BP 78 / 43 (auto/); kc3 17:34 BP 84 / 46 (auto/); kc3 17:34 Pulse 86 MON; Pulse Ox 97% ; kc3 17:42 BP 86 / 49 (auto/); kc3 17:42 Pulse 86 MON; Pulse Ox 96% ; kc3 17:46 Pulse 86 MON; Pulse Ox 96% ; kc3 17:47 BP 85 / 49 (auto/); kc3 18:02 BP 84 / 48 (auto/); kc3 18:02 Pulse 88 MON; Pulse Ox 96% ; kc3 18:15 Pulse 90 MON; Pulse Ox 96% ; kc3 18:17 BP 87 / 51 (auto/); kc3 18:28 Pulse 86 MON; Pulse Ox 84% ; kc3 18:29 BP 119 / 58 (auto/); kc3 18:32 BP 112 / 57 (auto/); kc3 18:35 Pulse 86 MON; Pulse Ox 98% ; kc3 18:46 Pulse 86 MON; Pulse Ox 95% ; kc3 18:47 BP 101 / 53 (auto/); kc3 18:49 BP 102 / 54 (auto/); kc3 18:49 Pulse 86 MON; Pulse Ox 96% ; kc3 19:02 BP 90 / 51 (auto/); nn1 19:02 Pulse 86 MON; Pulse Ox 92% ; nn1 19:10 BP 81 / 48 (auto/); nn1 19:10 Pulse 80 MON; Pulse Ox 91% ; nn1 19:15 BP 92 / 51 (auto/); nn1 19:15 Pulse 78 MON; Pulse Ox 91% ; nn1 19:17 BP 89 / 54 (auto/); nn1 19:17 Pulse 78 MON; Pulse Ox 95% ; nn1 19:24 BP 86 / 54 (auto/); nn1 19:24 Pulse 78 MON; Pulse Ox 96% ; nn1 19:32 BP 80 / 50 (auto/); nn1 19:32 Pulse 78 MON; Pulse Ox 97% ; nn1 19:35 BP 84 / 50 (auto/); nn1 19:35 Pulse 80 MON; Pulse Ox 97% ; nn1 19:47 BP 103 / 54 (auto/); nn1 19:47 Pulse 84 MON; Pulse Ox 99% ; nn1 19:48 BP 102 / 56 (auto/); nn1 19:48 Pulse 84 MON; Pulse Ox 99% ; nn1 20:30 Pulse 84 MON; Pulse Ox 97% ; nn1 20:40 BP 111 / 59; Resp 22; Temp 97.8(T); Pulse Ox 98% on 3 lpm NC; nn1 13:44 Body Mass Index 18.88 (49.90 kg, 162.56 cm) 3 Vitals: 13:28 Log In Time: March 31, 2016 at 13:25. RN notified that patient meets Red Flag dem1 criteria. 14:45 Strep Screen is obtained and tested: Negative, a GATSNEG culture is ordered in [facility] and sent. ED Course: 13:27 Patient visited by Mariella Frias. dem1 13:27 Patient moved to Waiting dem1 13:28 Josef Calderon is Private Physician. dem1 13:28 Patient visited by Mariella Frias. dem1 13:33 Melissa Garrido,RN is Primary Nurse. kcs 13:33 Patient moved to 7 kcs 13:40 Sonu Thompson MD is Attending Physician. ml 13:40 Patient visited by Sonu Thompson MD. ml 13:43 Triage Initiated kc3 14:10 Patient visited by Marianne Mims PCA. bnb 14:10 EKG done. (by ED staff). Reviewed by Sonu Thompson MD. bnb 14:12 -Blood Culture Sent. kc3 14:12 Amylase Sent. kc3 14:12 C Reactive Protein Sent. kc3 14:12 CBC with Diff Sent. kc3 14:12 Lactic Acid (Heaton tube on ice) Sent. kc3 14:12 Liver Profile Sent. kc3 14:12 MED Profile Sent. kc3 14:12 PT/INR Sent. kc3 14:12 PTT Sent. kc3 14:12 Type & Screen Sent. kc3 14:19 [facility] Payment Agreement was scanned into [employer] and attached to record. jp5 14:34 BLOOD CULTURES Sent. kc3 14:45 Patient visited by Melissa Garrido,HENRY. kc3 15:11 Urinalysis Sent. kc3 15:11 Urine Culture Sent. kc3 15:15 Patient visited by Melissa Garrido RN. kc3 15:15 The patient / caregiver is instructed regarding the plan of care and ED course. kc3 15:15 Inserted saline lock: 20 gauge in right forearm and blood collected. The patient kc3 tolerated the procedure well. 15:24 RESPIRATORY PANEL Sent. kc3 15:25 -Influenza A&B Rapid Antigen - Nose Sent. kc3 15:25 Chest, 1 View Returned. EDMS 15:33 Cedric Cisneros is Hospitalizing Provider. ml 18:28 CT Chest Angio R/O PE Returned. EDMS 18:30 Patient visited by Jr Mims RN. jmb 18:30 Inserted saline lock: 20 gauge in left forearm The patient tolerated the procedure well.jmb 18:52 Discontinued IV lock intact, bleeding controlled, pressure dressing applied, No kc3 redness/swelling at site. IV right forearm dc'd. 20:39 No procedures done that require assistance. nn1 0207 12:44 T-Sheet-- Draft Copy was scanned into [employer] and attached to record. 12:44 ECG/EKG was scanned into [employer] and attached to record. gb Administered Medications: 03/31 14:34 Drug: NS 0.9% 1000 ml [sodium chloride 0.9 % intravenous solution] Route: IV; Rate: kc3 bolus; Site: right forearm; 14:35 Drug: Solu-MEDROL 125 mg [Solu-Medrol 500 mg intravenous solution (125 mg)] Route: IVP; kc3 Site: right forearm; 14:41 Drug: Albuterol 5 mg [albuterol sulfate 2.5 mg/0.5 mL solution for nebulization (1 mL)] kjn Route: Nebulizer; 14:41 Drug: Albuterol-Ipratropium 3 ml [ipratropium-albuterol 0.5 mg-3 mg(2.5 mg base)/3 mL kjn nebulization soln (3 mL)] Route: Inhalation; 16:00 Drug: Merrem 500 mg Route: IV; Rate: bolus; Site: right forearm; kc3 16:58 Follow up: IV Status: Completed infusion kc3 16:57 Drug: vancomycin (loading dose for pt. wt. 40-49kg) 1000 mg [vancomycin 500 mg kc3 intravenous solution] Route: IVPB; Site: right forearm; 18:53 Follow up: IV Status: Completed infusion kc3 18:08 Drug: NS 0.9% 500 ml [sodium chloride 0.9 % intravenous solution] Route: IV; Rate: kc3 bolus; Site: right forearm; 18:53 Follow up: IV Status: Completed infusion kc3 19:21 Drug: NS 0.9% 500 ml [sodium chloride 0.9 % intravenous solution] Route: IV; Rate: nn1 bolus; Site: left hand; RT: 14:41 ABG's drawn from right radial artery allens test done and positive pressure held for 5 kjn minutes no bleeding noted pressure bandage applied specimen sent pt. tolerated well. 14:42 Initial Med Neb Given as ordered. Respiratory: Breath sounds are diminished Breath kjn sounds with wheezes bilaterally. Order Results: Lab Order: -Arterial Blood Gas; [facility] 03/31/16 14:29 Test: ABG pH (ARTERIAL); Value: 7.390; Range: 7.350-7.450; Units: UNITS; Status: F Test: ABG PARTIAL PRESSURE CO2; Value: 37.6; Range: 35.0-45.0; Units: mmHg; Status: F Test: ABG PARTIAL PRESSURE O2; Value: 155.4; Range: 75.0-100.0; Abnormal: Above high normal; Units: mmHg; Status: F Test: ABG TOTAL CO2; Value: 23.4; Range: 23.0-31.0; Units: MEQ/L; Status: F Test: ABG HCO3; Value: 22.2; Range: 22.0-26.0; Units: MEQ/L; Status: F Test: ABG BASE EXCESS; Value: -2.3; Range: -2.0-2.0; Abnormal: Below low normal; Status: F Test: ABG STANDARD HCO3; Value: 22.5; Range: 22.0-26.0; Units: MEQ/L; Status: F Test: ABG O2 SATURATION; Value: 99.3; Range: 95.0-99.0; Abnormal: Above high normal; Units: %; Status: F Test: ABG DEVICE; Value: NASAL SUNNI; Status: F Lab Order: Amylase; [facility] 03/31/16 14:09 Test: AMYLASE; Value: 58; Range: 25-115; Units: U/L; Status: F Lab Order: C Reactive Protein; [facility] 03/31/16 14:09 Test: C REACTIVE PROTEIN QUANTITATIV; Value: 2.33; Range: 0.00-0.30; Abnormal: Above high normal; Units: MG/DL; Status: F Lab Order: CBC with Diff; SPE[facility] 03/31/16 14:09 Test: WHITE BLOOD COUNT; Value: 10.0; Range: 4.0-10.0; Units: K/mm3; Status: F Test: RED BLOOD COUNT; Value: 3.53; Range: 4.00-5.40; Abnormal: Below low normal; Units: M/mm3; Status: F Test: HEMOGLOBIN; Value: 10.9; Range: 12.0-16.0; Abnormal: Below low normal; Units: g/dl; Status: F Test: HEMATOCRIT; Value: 33.0; Range: 36.0-47.0; Abnormal: Below low normal; Units: %; Status: F Test: MEAN CORPUSCULAR VOLUME; Value: 93.4; Range: 80.0-96.0; Units: fl; Status: F Test: MEAN CORPUSCULAR HEMOGLOBIN; Value: 30.9; Range: 27.0-33.0; Units: pg; Status: F Test: MEAN CORPUSCULAR HGB CONC; Value: 33.0; Range: 32.0-36.5; Units: g/dl; Status: F Test: RED CELL DISTRIBUTION WIDTH; Value: 13.6; Range: 11.5-14.5; Units: %; Status: F Test: PLATELET COUNT, AUTOMATED; Value: 278; Range: 150-450; Units: k/mm3; Status: F Test: NEUTROPHILS %; Value: 90.4; Range: 36.0-66.0; Abnormal: Above high normal; Units: %; Status: F Test: LYMPH %; Value: 2.4; Range: 24.0-44.0; Abnormal: Below low normal; Units: %; Status: F Test: MONO %; Value: 4.2; Range: 0.0-5.0; Units: %; Status: F Test: EOS %; Value: 1.1; Range: 0.0-3.0; Units: %; Status: F Test: BASO %; Value: 0.2; Range: 0.0-1.0; Units: %; Status: F Test: LARGE UNSTAINED CELL %; Value: 1.7; Range: 0.0-4.0; Units: %; Status: F Test: NEUTROPHILS #; Value: 9.0; Range: 1.8-7.7; Abnormal: Above high normal; Units: K/mm3; Status: F Test: LYMPH #; Value: 0.2; Range: 1.5-4.5; Abnormal: Below low normal; Units: K/mm3; Status: F Test: MONO #; Value: 0.4; Range: 0.0-0.8; Units: K/mm3; Status: F Test: EOS #; Value: 0.1; Range: 0.0-0.50; Units: K/mm3; Status: F Test: BASO #; Value: 0.0; Range: 0.0-0.2; Units: K/mm3; Status: F Test: LARGE UNSTAINED CELL #; Value: 0.2; Range: 0.0-0.4; Units: K/mm3; Status: F Lab Order: Lactic Acid (Heaton tube on ice); [facility] 03/31/16 14:09 Test: LACTIC ACID SEPSIS PROTOCOL; Value: 1.9; Range: 0.4-2.0; Units: MMOL/L; Status: F Lab Order: Liver Profile; [facility] 03/31/16 14:09 Test: AST/SGOT; Value: 20; Range: 15-37; Units: U/L; Status: F Test: ALT/SGPT; Value: 24; Range: 12-78; Units: U/L; Status: F Test: ALKALINE PHOSPHATASE; Value: 132; Range: 45-117; Abnormal: Above high normal; Units: U/L; Status: F Test: BILIRUBIN,TOTAL; Value: 0.3; Range: 0.2-1.0; Units: MG/DL; Status: F Test: BILIRUBIN,DIRECT; Value: < 0.1; Range: 0.0-0.2; Units: MG/DL; Status: F Test: TOTAL PROTEIN; Value: 7.0; Range: 6.4-8.2; Units: GM/DL; Status: F Test: ALBUMIN; Value: 3.1; Range: 3.2-5.2; Abnormal: Below low normal; Units: GM/DL; Status: F Test: ALBUMIN/GLOBULIN RATIO; Value: 0.79; Range: 1.00-1.93; Abnormal: Below low normal; Status: F Lab Order: MED Profile; SPEC03/31/16 14:09 Test: GLUCOSE, FASTING; Value: 111; Range: 83-110; Abnormal: Above high normal; Units: MG/DL; Status: F Test: BLOOD UREA NITROGEN; Value: 13; Range: 7-18; Units: MG/DL; Status: F Test: CREATININE FOR GFR; Value: 1.12; Range: 0.55-1.02; Abnormal: Above high normal; Units: MG/DL; Status: F Test: GLOMERULAR FILTRATION RATE; Value: 48.9; Range: >32; Status: F Test: SODIUM LEVEL; Value: 139; Range: 136-145; Units: MEQ/L; Status: F Test: POTASSIUM SERUM; Value: 4.9; Range: 3.5-5.1; Units: MEQ/L; Status: F Test: CHLORIDE LEVEL; Value: 105; Range: 98-107; Units: MEQ/L; Status: F Test: CARBON DIOXIDE LEVEL; Value: 25; Range: 21-32; Units: MEQ/L; Status: F Test: ANION GAP; Value: 9; Range: 8-16; Units: MEQ/L; Status: F Test: CALCIUM LEVEL; Value: 8.8; Range: 8.8-10.2; Units: MG/DL; Status: F Test Note: ; Units are mL/min/1.73 m2 Chronic Kidney Disease Staging per NKF: Stage I & II GFR >=60 Normal to Mildly Decreased Stage III GFR 30-59 Moderately Decreased Stage IV GFR 15-29 Severely Decreased Stage V GFR <15 Very Little GFR Left ESRD GFR <15 on NEONATAL DOCTOR Lab Order: PT/INR; SPEC03/31/16 14:09 Test: PROTHROMBIN TIME; Value: 29.3; Range: 12.3-14.5; Abnormal: Above high normal; Units: SECONDS; Status: F Test: INR; Value: 2.77; Status: F Test Note: ; THERAPUTIC HUMAN INR VALUES INDICATIONS NORMAL RANGES PROPHYLAXIS/TREATMENT OF: VENOUS THROMBOSIS 2.0-3.0 PULMONARY EMBOLISM 2.0-3.0 PREVENTION OF SYSTEMIC EMBOLISM FROM: TISSUE HEART VALVES 2.0-3.0 ACUTE MYOCARDIAL INFARCTION 2.0-3.0 VALVULAR HEART DISEASE 2.0-3.0 ATRIAL FIBRILLATION 2.0-3.0 MECHANICAL VALVES(HIGH RISK) 2.5-3.5 RECURRENT MYOCARDIAL INFARCTION 2.5-3.5 Lab Order: PTT; [facility] 03/31/16 14:09 Test: PARTIAL THROMBOPLASTIN TIME; Value: 44.6; Range: 26.6-37.1; Abnormal: Above high normal; Units: SECONDS; Status: F Lab Order: Urinalysis; [facility] 03/31/16 15:07 Test: APPEARANCE, URINE; Value: CLOUDY; Range: CLEAR; Abnormal: Above high normal; Status: F Test: COLOR, URINE; Value: YELLOW; Range: YELLOW; Status: F Test: PH,URINE; Value: 6.0; Range: 5.0-9.0; Units: UNITS; Status: F Test: SPECIFIC GRAVITY URINE AUTO; Value: 1.009; Range: 1.002-1.035; Status: F Test: PROTEIN, URINE AUTO; Value: NEGATIVE; Range: NEGATIVE; Units: mg/dL; Status: F Test: GLUCOSE, URINE (UA) AUTO; Value: NEGATIVE; Range: NEGATIVE; Units: mg/dL; Status: F Test: KETONE, URINE AUTO; Value: NEGATIVE; Range: NEGATIVE; Units: mg/dL; Status: F Test: UROBILINOGEN, URINE AUTO; Value: 0.2; Range: 0.0-2.0; Units: mg/dL; Status: F Test: BILIRUBIN, URINE AUTO; Value: NEGATIVE; Range: NEGATIVE; Status: F Test: NITRITE, URINE AUTO; Value: NEGATIVE; Range: NEGATIVE; Status: F Test: LEUKOCYTE ESTERASE, URINE AUTO; Value: 3+; Range: NEGATIVE; Abnormal: Above high normal; Status: F Test: BLOOD, URINE BLOOD; Value: 2+; Range: NEGATIVE; Abnormal: Above high normal; Status: F Test: WBC, URINE AUTO; Value: TNTC; Range: 0-3; Abnormal: Above high normal; Units: /HPF; Status: F Test: RBC, URINE AUTO; Value: 46; Range: 0-3; Abnormal: Above high normal; Units: /HPF; Status: F Test: BACTERIA, URINE AUTO; Value: 1+; Range: NEGATIVE; Abnormal: Above high normal; Status: F Test: SQUAMOUS EPITHELIAL CELL UR AU; Value: 0; Range: 0-6; Units: /HPF; Status: F Test: MUCUS, URINE; Value: SMALL; Range: NEGATIVE; Status: F Test: HYALINE CAST, URINE AUTO; Value: 0; Range: 0-1; Units: /LPF; Status: F Test: AMORPHOUS SEDIMENT; Value: SMALL; Range: NEGATIVE; Abnormal: Above high normal; Status: F Lab Order: -Influenza A&B Rapid Antigen - Nose; SPEC'M 03/31/16 15:23 Test: INFLUENZA A RAPID SCR by ICA; Value: INFLUENZA A RESULTS NEGATIVE; Status: F Test: INFLUENZA A RAPID SCR by ICA; Value: Comments:; Status: F Test: INFLUENZA B RAPID SCR by ICA; Value: INFLUENZA B RESULTS NEGATIVE; Status: F Test Note: ; The Influenza test is a direct rapid immunoassay for the qualitative detection of Influenza viral antigen. Cell culture (Viral Culture) testing should be considered to confirm NEGATIVE results and to assist in detecting other viruses that can provide similar clinical symptoms. Please contact the lab within 24 hours ([phone]) if confirmatory testing is desired. Lab Order: RESPIRATORY PANEL; SPEC'M 03/31/16 15:23 Test: RESPIRATORY PANEL; Value: RP PANEL RESULT POSITIVE by PCR; Abnormal: Abnormal; Status: F Test: RESPIRATORY PANEL; Value: Comments:; Status: F Test: RESPIRATORY PANEL; Value: ORGANISM 1: INFLUENZA A H3; Status: F Test: RESPIRATORY PANEL; Value: INFLUENZA A H3; Status: F Test: RESPIRATORY PANEL; Value: Influenza H3 1 Influenza causes upper respiratory tract infections; Status: F Test: RESPIRATORY PANEL; Value: Influenza H3 10 Influenza A1H3.; Status: F Test: RESPIRATORY PANEL; Value: Influenza H3 2 with rapid onset of fever. During annual Influenza; Status: F Test: RESPIRATORY PANEL; Value: Influenza H3 3 epidemics, 5-20% of the population is affected.; Status: F Test: RESPIRATORY PANEL; Value: Influenza H3 4 Complications with viral or bacterial pneumonia; Status: F Test: RESPIRATORY PANEL; Value: Influenza H3 5 increase mortality from Influenza infections. There; Status: F Test: RESPIRATORY PANEL; Value: Influenza H3 6 are currently at least four antiviral medications; Status: F Test: RESPIRATORY PANEL; Value: Influenza H3 7 available for Influenza treatment (amantadine,; Status: F Test: RESPIRATORY PANEL; Value: Influenza H3 8 rimantadine, zanamivir and oseltamivir). More severe; Status: F Test: RESPIRATORY PANEL; Value: Influenza H3 9 disease and increased mortality are associated with; Status: F Test Note: ; This respiratory PCR panel detects Influenza A H1, H3 and 2009 H1 viruses, Influenza B virus, Respiratory syncytial virus, Human metapneumovirus, Parainfluenza virus 1, 2, 3 and 4, Adenovirus, Rhinovirus/Enterovirus, Coronavirus HKU1, NL63, OC43 and 229E, Bordetella pertussis, Mycoplasma pneumoniae and Chlamydia pneumoniae. Lab Order: Fingerstick Blood Sugar; SPEC'M 03/31/16 19:39 Test: BEDSIDE GLUCOSE; Value: 140; Range: 83-110; Abnormal: Above high normal; Units: MG/DL; Status: F Radiology Order: Chest, 1 View Test: Chest, 1 View REASON FOR EXAMINATION: wheezing; Portable chest x-ray: AP semi-erect view.; ; History: Wheezing.; ; Comparison study March 20, 2016.; ; Findings: EKG monitoring electrodes and oxygen tubing are seen. The patient is; rotated somewhat to the right. Moderate cardiomegaly is observed and the study; is exposed at a relatively low level of inspiration. This is similar to the; prior study. 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 No infiltrate is seen. Pulmonary vasculature is not increased. There is; mild linear fibrosis in the left upper lobe region.; ; Impression:; ; Moderate cardiomegaly. Relatively low level of inspiration. Otherwise no acute; disease.; ; ; Signed by; Sabino Greco MD 03/31/2016 03:23 P; Radiology Order: CT Chest Angio R/O PE Test: CT Chest Angio R/O PE REASON FOR EXAMINATION: sob; CT ANGIO CHEST:; ; HISTORY: Shortness of breath.; ; CONTRAST: Isovue-370/75 mL.; ; COMPARISON: CT chest 09/24/2014.; ; There are no filling defects in the main right and left pulmonary arteries and; their proximal branches. The distal branches are not well seen. Linear densities; are present in the lower lobes consistent with bibasilar atelectasis or scar.; Areas of bronchiectasis are present throughout the lungs. There is no pleural; effusion. Small lymph nodes less than 1 cm in size are present in the; mediastinum. He ascending aorta is upper limits of normal in size.; Atherosclerotic calcification is present in the thoracic aorta. The patient is; status-post T12 and L1 kyphoplasty. There are old compression fractures of the; T11 through L1 vertebral bodies with moderate to severe height loss.; ; IMPRESSION:; ; 1. Limited examination demonstrating no pulmonary embolism in the main right and; left pulmonary arteries or their proximal branches. The distal branches are; not well seen.; ; 2. Bibasilar atelectasis or scarring.; ; 3. There are areas of bronchiectasis throughout the lungs.; ; ; Signed by; Emmett Estes MD 03/31/2016 06:00 P; Outcome: 15:33 Decision to Hospitalize by Provider. ml 17:25 CT Study completed. kc3 20:38 Discharge Assessment: Patient awake, alert and oriented x 3. No cognitive and/or nn1 functional deficits noted. Patient verbalized understanding of disposition instructions. patient administered narcotics - no. The following High Risk Discharge criteria are identified: None. Admitted to ICU accompanied by nurse, accompanied by tech, family with patient, via stretcher, with oxygen, on monitor, with chart. critical. Admission hand-off: Report called to HENRY Brannon. Property :Personal belongings accompany Pt. 20:42 Patient left the ED. nn1 Signatures: Dispatcher [employer] EDMS Sonu Thompson MD MD ml Jessica Soares, RN RN Dorcas Tovar, Reg Reg gb Ender Corona RN RN [id number] Mariella Frias Katherine kjn Becker, JoshuaRN RN Mary Garcia,RN RN nn1 Gisele French Kelsi, RN RN jm3 Marianne Mims, ELLIE ARGUETA bntad Corrections: (The following items were deleted from the chart) 13:53 13:39 Presenting complaint: Per Chelsea, pt's daughter, pt with temp at home 101.4 kc3 today with no reported Tylenol or Ibuprofen given. Pt with wheezing at home. kc3 Chart Complete MTDD
[2016-04-02] MEDS: OSELTAMIVIR 6 MG/ML 60ML SUSP PO SCH (21:54)
[2016-04-02 22:00] VITALS: BP 150/68
[2016-04-03] MEDS: IPRATROPIUM 0.5MG/ALBUTEROL 2.5MG INH SOL UD 3ML (DUONEB)(J7620) NEB SCH ×4 (01:34→20:32)
[2016-04-03] MEDS: LEVOTHYROXINE 0.075 MG TAB (75 MCG) PO SCH (05:49)
[2016-04-03] MEDS: SLF 3 ML SYR IV SCH ×3 (05:49→22:00)
[2016-04-03] MEDS: methylPREDNISolone INJ 40 MG/1 ML VIAL (J2920) IV SCH (05:49)
[2016-04-03 06:00] VITALS: BP 102/51
[2016-04-03 06:00] LABS: BASO % 0.1 % (0.0-1.0); EOS % 0.1 % (0.0-3.0); LARGE UNSTAINED CELL # 0.1 K/mm3 (0.0-0.4); LARGE UNSTAINED CELL % 0.4 % (0.0-4.0); LYMPH # 0.4 K/mm3 (1.5-4.5); LYMPH % 2.9 % (24.0-44.0); MEAN CORPUSCULAR HEMOGLOBIN 29.4 pg (27.0-33.0); MEAN CORPUSCULAR HGB CONC 30.9 g/dl (32.0-36.5); MEAN CORPUSCULAR VOLUME 95.2 fl (80.0-96.0); MONO # 0.3 K/mm3 (0.0-0.8); MONO % 2.3 % (0.0-5.0); NEUTROPHILS # 11.6 K/mm3 (1.8-7.7); NEUTROPHILS % 94.2 % (36.0-66.0); PLATELET COUNT, AUTOMATED 272 k/mm3 (150-450); RED CELL DISTRIBUTION WIDTH 14.3 % (11.5-14.5); WHITE BLOOD COUNT 12.4 K/mm3 (4.0-10.0)
[2016-04-03 06:02] LABS: INR 4.76
[2016-04-03 06:09] LABS: ALBUMIN 2.6 GM/DL (3.2-5.2); ALBUMIN/GLOBULIN RATIO 0.87 (1.00-1.93); BILIRUBIN,TOTAL 0.2 MG/DL (0.2-1.0); CALCIUM LEVEL 7.6 MG/DL (8.8-10.2); CREATININE FOR GFR 1.09 MG/DL (0.55-1.02); GLOMERULAR FILTRATION RATE 50.4 (>32); MAGNESIUM LEVEL 2.1 MG/DL (1.8-2.4); POTASSIUM SERUM 4.9 MEQ/L (3.5-5.1); TOTAL PROTEIN 5.6 GM/DL (6.4-8.2)
[2016-04-03] MEDS: WARFARIN SOD 2.5 MG TAB PO SCH (07:46)
[2016-04-03] MEDS: CHOLESTYRAMINE 4 GM PWD PKT PO SCH ×2 (10:14→22:11)
[2016-04-03] MEDS: ALPRAZolam 0.25 MG TAB PO PRN ×3 (10:15→22:11)
[2016-04-03] MEDS: VANCOMYCIN ORAL SOL 250MG/5ML ORAL SYRINGE PO SCH (10:15)
[2016-04-03] MEDS: LACTOBACILLUS ACIDOPHILUS CAP (BACID) PO SCH ×3 (10:15→18:29)
[2016-04-03] MEDS: predniSONE 20 MG TAB PO SCH (10:16)
[2016-04-03] MEDS: LACOSAMIDE 50 MG TAB (VIMPAT) PO SCH ×2 (10:16→22:11)
[2016-04-03] MEDS: IPRATROPIUM 0.5MG/ALBUTEROL 2.5MG INH SOL UD 3ML (DUONEB)(J7620) NEB PRN ×2 (10:27→16:35)
[2016-04-03] MEDS: NYSTATIN 500,000 U/5 ML SUSP UDC SS SCH ×3 (12:48→22:11)
[2016-04-03] MEDS: NS 1,000 ML IV SCH (12:48)
[2016-04-03 14:00] VITALS: BP 149/70
--- NOTE | 2016-04-03 14:09 | REP ---
CHEST X-RAY: TWO VIEWS. HISTORY: Increased breath sounds. COMPARISON STUDY: April 02, 2016 FINDINGS: Moderate to marked cardiomegaly is again observed, unchanged. There is an area of increased density along the left heart border at the left base laterally on the frontal view. Lateral view suggests discoid atelectasis in the lingular segment left upper lobe distribution. There is a hiatal hernia behind the heart. Diffuse osteopenia is noted. Vascular calcification is seen in the aorta. The patient is status post lower thoracic vertebroplasty. IMPRESSION: There is evidence of atelectasis in the lingula. No other infiltrate. Cardiomegaly. Signed by Sabino Greco MD 04/03/2016 04:33 P
[2016-04-03 17:35] LABS: CALCIUM LEVEL 8.3 MG/DL (8.8-10.2); CREATININE FOR GFR 1.11 MG/DL (0.55-1.02); GLOMERULAR FILTRATION RATE 49.4 (>32); POTASSIUM SERUM 4.8 MEQ/L (3.5-5.1)
--- NOTE | 2016-04-03 20:49 | IPN ---
DATE: 04/03/2016 Patient is seen and examined at the bedside. Chart has been reviewed. She is nonverbal, noncommunicative at baseline. She has purposeful movements, contracted. Daughter is feeding her thickened liquids and pureed diet at the bedside at 60 degrees head of bed elevation. Per one of the daughters, patient had a choking spell yesterday, she choked on her own secretions in the evening requiring suctioning. She had no documented desaturations but still requiring 4 liters of oxygen via nasal cannula. Per the daughter, patient at baseline is able to ambulate with her walker with one person assistance at home. She has, this morning, no other issues. Diarrhea has subsided currently. Had three bowel movements yesterday which were formed, pudding-like consistency. VITAL SIGNS: Temperature 97, pulse 74, respiratory rate 18, blood pressure 102/51, 96% on 4 liters nasal cannula. Generally, patient is awake, alert, oriented to person only, noncommunicative. Has contractures which are chronic from her CVA. No use of abdominal muscles or intercostals to breathe. Tolerating bedside diet, pureed and thickened liquids. LUNGS: Diminished breath sounds with coarse rhonchi bilaterally. HEART: S1, S2, sinus rhythm. ABDOMEN: Soft, nontender, nondistended. EXTREMITIES: Contracted, no pitting edema. LABORATORY DATA: White count 12, hemoglobin 8.4, hematocrit 27, platelet count 272. Lactic acid 2.4, decreased from previous lactic acid of 2.7. Sodium 145, potassium 4.9, chloride 112, bicarbonate 25, BUN 21, creatinine 1.09, glucose of 112. Microbiology: Influenza AH3. Yeast-like organism in the urine. ASSESSMENT AND PLAN: This is an 89-year-old female who is a FULL CODE, healthcare proxy is a registered nurse in the emergency room, Chelsea phone number is [phone], history of CVA with contractures, chronic dementia, history of septic shock, Clostridium (C) difficile colitis on tapering dose of vancomycin, deep venous thrombosis (DVT), pulmonary embolus (PE) on chronic Coumadin, hypothyroidism, seizure disorder, oxygen nightly, follows with Dr. Josef Calderon as outpatient, presents to the emergency room with fever of 101, foul urine, urine culture grew out yeast. Patient received vancomycin and imipenem for a day. CT chest showed no consolidation or infiltrate. IV imipenem was discontinued, vancomycin was continued until the urine culture returned as yeast. Respiratory panel was positive for influenza and she has been treated with Tamiflu and on droplet precautions. CURRENT ISSUES: 1. Acute hypoxic respiratory failure requiring supplemental oxygen, secondary to influenza AH3, currently on Tamiflu. Patient did receive 2 days of vancomycin, 1 day of imipenem on admission until CT findings were negative for consolidation or infiltrate. Urine culture was negative for bacterial infection. Currently being managed with supplemental oxygen, nebulizer treatments. 2. Clostridium (C) difficile colitis. On tapering dose of vancomycin. Patient had an episode of 12 bowel movements while on imipenem, which has been discontinued. Gastrointestinal (GI) panel is again negative for Clostridium (C) difficile. 3. Abnormal urinalysis. Prior history of Escherichia (E) faecalis in the urine culture and Streptococcus anginosus. Patient did receive 2 days of vancomycin which caused diarrhea, 12 bowel movements in one day, this has been discontinued since. Urine culture grew out yeast. No antibiotics currently aside from oral vancomycin for Clostridium (C) difficile colitis. 4. History of CVA with chronic contractures. Patient is aspiration risk, had a choking episode yesterday, therefore will repeat swallow evaluation in the morning. Continue with suctioning every 6 hours and nighttime pulse oximetry. 5. History of pulmonary embolus. On chronic Coumadin currently with elevated INR, therefore will hold today's Coumadin and recheck INR in the morning. 6. History of seizure disorder. On chronic antiepileptics. 7. Anxiety. On Xanax. 8. Hypothyroidism. On Synthroid. 9. Asthma. Nebulizers. Decrease Solu-Medrol to oral prednisone in the morning. 10. Normocytic anemia. No acute indication for red cell transfusion. 11. Acute kidney injury. Improving on intravenous (IV) fluids. Monitor for fluid overload. 12. Sepsis, secondary to influenza. Lactic acid is improving, recheck level routinely. 13. Deep venous thrombosis (DVT) prophylaxis. On chronic Coumadin which will be held due to elevated INR today. MTDD
[2016-04-03 21:00] VITALS: BP 127/60
[2016-04-03] MEDS: OSELTAMIVIR 6 MG/ML 60ML SUSP PO SCH (22:11)
[2016-04-03] MEDS: MIRTAZAPINE 15 MG TAB PO SCH (22:11)
[2016-04-03] MEDS: ACETAMINOPHEN TAB 650MG DOSE (2X325MG) PO PRN (22:12)
[2016-04-04] MEDS: IPRATROPIUM 0.5MG/ALBUTEROL 2.5MG INH SOL UD 3ML (DUONEB)(J7620) NEB SCH ×4 (02:15→20:18)
[2016-04-04] MEDS: NS 1,000 ML IV SCH (02:18)
[2016-04-04 06:00] VITALS: BP 155/72
[2016-04-04] MEDS: SLF 3 ML SYR IV SCH ×3 (06:00→20:17)
[2016-04-04] MEDS: LEVOTHYROXINE 0.075 MG TAB (75 MCG) PO SCH (06:02)
[2016-04-04 06:27] LABS: CALCIUM LEVEL 7.7 MG/DL (8.8-10.2); CREATININE FOR GFR 0.97 MG/DL (0.55-1.02); GLOMERULAR FILTRATION RATE 57.7 (>32); POTASSIUM SERUM 4.6 MEQ/L (3.5-5.1)
[2016-04-04 06:37] LABS: INR 4.69
[2016-04-04] MEDS: VANCOMYCIN ORAL SOL 250MG/5ML ORAL SYRINGE PO SCH (09:02)
[2016-04-04] MEDS: NYSTATIN 500,000 U/5 ML SUSP UDC SS SCH ×4 (09:02→20:14)
[2016-04-04] MEDS: LACTOBACILLUS ACIDOPHILUS CAP (BACID) PO SCH ×3 (09:03→17:09)
[2016-04-04] MEDS: predniSONE 20 MG TAB PO SCH (09:03)
[2016-04-04] MEDS: CHOLESTYRAMINE 4 GM PWD PKT PO SCH ×2 (09:03→20:15)
[2016-04-04] MEDS: LACOSAMIDE 50 MG TAB (VIMPAT) PO SCH ×2 (09:03→20:16)
--- NOTE | 2016-04-04 10:23 | IPN ---
DATE: 04/04/2016 The patient is seen and examined at the bedside. Chart has been reviewed. She is noncooperative with the examination and currently mumbles, nonverbal, does not converse. Speech could not be evaluated. Has her eyes closed. Being fed by the daughter with thickened pureed diet and thickened liquids at the bedside. Temperature 97.5, pulse 83, respiratory rate 17, blood pressure 155/72, 92% on room air, 96% on nasal cannula. GENERAL: The patient is awake, alert, oriented to person only. She responds to her name. Not cooperative with the examination. Does not answer questions and mumbles, but has purposeful movements and chronic upper and lower extremity contractures. LUNGS: Diminished breath sounds. Coarse rhonchi bilaterally. Air entry is decreased. HEART: S1, S2. Sinus rhythm. ABDOMEN: Soft, nontender, nondistended. EXTREMITIES: No pitting edema. LABORATORY DATA: CBC and metabolic panel have been reviewed. Lactic acid is 1.9. ASSESSMENT AND PLAN: This is an 89-year-old FULL CODE with healthcare proxy, Chelsea, registered nurse in the emergency room, phone number is [phone]. History of CVA with contractures, chronic dementia, septic shock, Clostridium (C.) difficile colitis, currently on tapering dose of vancomycin, history of deep vein thrombosis (DVT), pulmonary embolism on chronic Coumadin, which was held yesterday due to elevated INR, hypothyroidism, seizure disorder, oxygen nightly, follows with Dr. Josef Calderon as an outpatient, who presents to the emergency room with a fever of 101. The patient initially received vancomycin and imipenem. CT showed no consolidation or infiltrate. IV imipenem was discontinued. The patient had previous history of urinary tract infection (UTI) with Enterococcus faecalis and vancomycin was continued until urine culture grew out yeast. Respiratory panel was positive for influenza and patient is being treated with Tamiflu and droplet precautions. 1. Acute hypoxic respiratory failure requiring supplemental oxygen secondary to influenza AH3. Currently on Tamiflu. The patient did receive two days of vancomycin and one day of imipenem on admission until CT findings were negative for pneumonia. Urine culture is negative for bacterial infection, currently being managed supportively with nebulizer treatments, treatment for influenza with Tamiflu, oral steroids and supplemental oxygen. 2. Clostridium (C.) difficile colitis. On tapering dose of vancomycin. The patient initially had 12 episodes of bowel movements while on imipenem, which has been discontinued. GI panel was negative for C difficile currently. 3. Abnormal urinalysis with prior history of Enterococcus faecalis in the urine , Streptococcus anginosis. Did receive two days of vancomycin and one day of imipenem, which caused 12 bowel movements in one day. Both vancomycin and imipenem have since been discontinued and GI panel was unremarkable. Urine culture negative for bacterial infection. 4. History of CVA with chronic contractures. The patient is currently an aspiration risk and family is continually feeding her a pureed diet and honey-thickened liquids despite recommendations from speech therapist for feeding tube placement and alternative nutrition. Continue right now with turning every six hours and nighttime pulse oximetry. 5. History of pulmonary embolism. On chronic Coumadin. Elevated INR yesterday at over 4. Current INR is 4.69. Continue to hold the patient's Coumadin dose until less than 3.0. 6. Hypothyroidism. On Synthroid. 7. History of seizure disorder. On Vimpat. 8. Oral thrush. On nystatin. MTDD
[2016-04-04] MEDS: ALPRAZolam 0.25 MG TAB PO PRN ×3 (10:47→20:16)
--- NOTE | 2016-04-04 12:30 | NOCOX ---
DATE OF PROCEDURE: 04/04/2016 Nocturnal oximetry recording was performed on 04/03 to 04/04/2016. The patient was on room air during the study. Oxygen saturation is 93% on room air at the beginning of the study with a heart rate of 88. There were variable oxygen desaturations with the longest oxygen continuous desaturation less than 88% of 32 minutes and 48 seconds. The total time with an oxygen saturation less than 88% was 2 hours and 4 minutes. Pulse ranged from 74-103. IMPRESSION: Variable desaturations with prolonged periods hypoxia. Recommend oxygen administration and consideration of workup for obstructive sleep apnea if this is a clinical suspicion.
[2016-04-04 14:00] VITALS: BP 142/78
[2016-04-04 17:31] LABS: CALCIUM LEVEL 7.9 MG/DL (8.8-10.2); CREATININE FOR GFR 1.02 MG/DL (0.55-1.02); GLOMERULAR FILTRATION RATE 54.4 (>32)
[2016-04-04 20:00] VITALS: BP 179/87
[2016-04-04] MEDS: MIRTAZAPINE 15 MG TAB PO SCH (20:16)
[2016-04-04] MEDS: ACETAMINOPHEN TAB 650MG DOSE (2X325MG) PO PRN (20:16)
[2016-04-04] MEDS: guaiFENesin 200 MG TAB PO SCH (20:16)
[2016-04-04] MEDS: OSELTAMIVIR 6 MG/ML 60ML SUSP PO SCH (20:17)
[2016-04-04] MEDS ORDERED: guaiFENesin ER 600 MG TAB PO SCH (21:00)
[2016-04-05] MEDS: IPRATROPIUM 0.5MG/ALBUTEROL 2.5MG INH SOL UD 3ML (DUONEB)(J7620) NEB SCH ×4 (01:40→19:51)
[2016-04-05 05:25] VITALS: BP 118/58
[2016-04-05] MEDS: LEVOTHYROXINE 0.075 MG TAB (75 MCG) PO SCH (05:30)
[2016-04-05] MEDS: SLF 3 ML SYR IV SCH ×3 (05:30→21:24)
[2016-04-05 06:04] LABS: INR 4.85
[2016-04-05 06:25] LABS: ANION GAP 8 MEQ/L (8-16); BLOOD UREA NITROGEN 24 MG/DL (7-18); CALCIUM LEVEL 7.9 MG/DL (8.8-10.2); CARBON DIOXIDE LEVEL 26 MEQ/L (21-32); CHLORIDE LEVEL 111 MEQ/L (98-107); GLOMERULAR FILTRATION RATE > 60.0 (>32); GLUCOSE, FASTING 72 MG/DL (83-110); POTASSIUM SERUM 4.6 MEQ/L (3.5-5.1); SODIUM LEVEL 145 MEQ/L (136-145)
[2016-04-05] MEDS: VANCOMYCIN ORAL SOL 250MG/5ML ORAL SYRINGE PO SCH (08:56)
[2016-04-05] MEDS: NYSTATIN 500,000 U/5 ML SUSP UDC SS SCH ×4 (08:56→21:00)
[2016-04-05] MEDS: LACOSAMIDE 50 MG TAB (VIMPAT) PO SCH ×2 (08:57→21:00)
[2016-04-05] MEDS: guaiFENesin 200 MG TAB PO SCH ×2 (08:57→21:00)
[2016-04-05] MEDS: CHOLESTYRAMINE 4 GM PWD PKT PO SCH ×2 (08:57→20:59)
[2016-04-05] MEDS: LACTOBACILLUS ACIDOPHILUS CAP (BACID) PO SCH ×3 (08:57→17:54)
[2016-04-05] MEDS: predniSONE 20 MG TAB PO SCH (08:58)
[2016-04-05] MEDS: ALPRAZolam 0.25 MG TAB PO PRN ×3 (09:15→19:08)
[2016-04-05] MEDS: D5W 1,000 ML IV SCH (13:17)
[2016-04-05 13:50] VITALS: BP 146/62
--- NOTE | 2016-04-05 15:08 | IPN ---
DATE: 04/05/2016 Patient is seen and examined at the bedside. Chart has been reviewed. Patient is nonverbal and mumbles, keeps her eyes closed, does not cooperate with the interview or the examination, but has purposeful movements, responds to daughter Chelsea at the bedside. Temperature 96.9, pulse 73, respiratory rate 19, blood pressure 118/58, 97% on two liters nasal cannula. Generally, awake, alert, oriented to her name, has her eyes closed throughout the interview. Lungs diminished breath sounds, coarse rhonchi, bilateral expiratory wheezing. Heart S1, S2, sinus rhythm. Abdomen is soft, nontender, nondistended. Contractures, no pitting edema. LABORATORY DATA: CBC and metabolic panel have been reviewed. ASSESSMENT AND PLAN: This is an 89-year-old female, FULL CODE, healthcare proxy , Chelsea, a registered nurse in the emergency room (ER), phone number is [phone], history of CVA with contractures, chronic dementia, septic shock, full care at home, Clostridium (C) difficile colitis, on tapering dose of vancomycin, history of deep venous thrombosis (DVT), pulmonary embolus (PE), on chronic Coumadin, held due to elevated INR yesterday and today at 4.85, seizure disorder , hypothyroidism, follows with Dr. Josef Cadleron as outpatient, on oxygen at night due to sleep apnea without a normal sleep study. In the emergency room (ER) patient was found to have a fever of 101. She was initially given intravenous imipenem and vancomycin. CT chest showed no consolidation or infiltrate. Intravenous (IV) imipenem was discontinued and vancomycin was continued intravenously for history of urinary tract infection and foul urine per the daughter. Once the urine culture returned with no bacterial infection, IV imipenem was discontinued. Since the patient had been on vancomycin and imipenem for 2 days intravenously, she developed profuse diarrhea, had 12 bowel movements. Gastrointestinal (GI) panel was negative for Clostridium (C) difficile. She was continued on tapering dose of vancomycin. Respiratory panel returned with influenza being positive and she has been on Tamiflu since admission. CURRENT ISSUES: 1. Influenza AH3. Currently on Tamiflu. The daughter is insisting on oxygen despite 92% saturation on room air. Patient does have a documented nocturnal oximetry showing desaturations that are variable and may need formal study as outpatient or to continue oxygen use at night. Patient is severely deconditioned, had initially been placed on full support with intravenous steroids, supplemental oxygen, and nebulizer treatments. Steroids have since been decreased to oral prednisone. She appears to be stable and will remain on a slow tapering dose. 2. Clostridium (C) difficile colitis, on tapering dose of vancomycin. Patient had initially 12 bowel movements while on imipenem and intravenous vancomycin, both of which have been discontinued once the urine culture was found to be negative and no signs of pneumonia on CT of the chest. Gastrointestinal (GI) panel was negative for Clostridium (C) difficile. During this admission had normal urinalysis, prior history of Escherichia (E) faecalis in the urine, Streptococcus anginosus. Patient did receive 2 days of vancomycin and 1 day of imipenem which caused 12 bowel movements on day #2. Both vancomycin and imipenem have been discontinued. Gastrointestinal (GI) panel was unremarkable and urine culture was negative for bacterial infection. 3. History of CVA with chronic contractures. The patient is total care at home , requires 24/7 care, which the family can provide. She is currently on a thickened liquid and pureed diet and continues to aspirate. Per speech therapy, recommendations are for tube feedings. Family, at this time, wants to continue with pureed diet and thickened liquids and will consider a feeding tube later next week. Continue with suctioning, aspiration precautions. Family insists on feeding with current regimen. 4. History of pulmonary embolus (PE), on chronic Coumadin. Elevated INR today at 4.85. Will continue the dose of Coumadin today until the patient's INR is less than 3. 5. Hypothyroidism. On Synthroid. 6. History of seizure disorder. On Vimpat. 7. Oral thrush. On nystatin. MTDD
[2016-04-05] MEDS: OSELTAMIVIR 6 MG/ML 60ML SUSP PO SCH (20:59)
[2016-04-05] MEDS: MIRTAZAPINE 15 MG TAB PO SCH (21:00)
[2016-04-05 22:00] VITALS: BP 151/68
[2016-04-06] MEDS: IPRATROPIUM 0.5MG/ALBUTEROL 2.5MG INH SOL UD 3ML (DUONEB)(J7620) NEB SCH ×4 (01:44→20:52)
[2016-04-06] MEDS: SLF 3 ML SYR IV SCH ×3 (05:45→20:20)
[2016-04-06 05:49] LABS: MEAN CORPUSCULAR HEMOGLOBIN 29.8 pg (27.0-33.0); MEAN CORPUSCULAR HGB CONC 31.9 g/dl (32.0-36.5); MEAN CORPUSCULAR VOLUME 93.3 fl (80.0-96.0); RED CELL DISTRIBUTION WIDTH 14.2 % (11.5-14.5); WHITE BLOOD COUNT 6.3 K/mm3 (4.0-10.0)
[2016-04-06] MEDS: LEVOTHYROXINE 0.075 MG TAB (75 MCG) PO SCH ×2 (05:54→06:00)
[2016-04-06] MEDS: D5W 1,000 ML IV SCH (05:54)
[2016-04-06 05:57] LABS: INR 3.57
[2016-04-06 06:00] VITALS: BP 166/70
[2016-04-06 06:04] LABS: ANION GAP 5 MEQ/L (8-16); BLOOD UREA NITROGEN 18 MG/DL (7-18); CALCIUM LEVEL 8.2 MG/DL (8.8-10.2); CARBON DIOXIDE LEVEL 29 MEQ/L (21-32); CHLORIDE LEVEL 108 MEQ/L (98-107); CREATININE FOR GFR 0.91 MG/DL (0.55-1.02); GLOMERULAR FILTRATION RATE > 60.0 (>32); GLUCOSE, FASTING 91 MG/DL (83-110); POTASSIUM SERUM 4.5 MEQ/L (3.5-5.1); SODIUM LEVEL 142 MEQ/L (136-145)
[2016-04-06] MEDS: CHOLESTYRAMINE 4 GM PWD PKT PO SCH ×2 (08:49→20:18)
[2016-04-06] MEDS: NYSTATIN 500,000 U/5 ML SUSP UDC SS SCH ×4 (08:49→20:18)
[2016-04-06] MEDS: predniSONE 20 MG TAB PO SCH (08:50)
[2016-04-06] MEDS: VANCOMYCIN ORAL SOL 250MG/5ML ORAL SYRINGE PO SCH (08:50)
[2016-04-06] MEDS: ALPRAZolam 0.25 MG TAB PO PRN ×3 (08:50→17:55)
[2016-04-06] MEDS: guaiFENesin 200 MG TAB PO SCH ×2 (08:50→20:18)
[2016-04-06] MEDS: LACOSAMIDE 50 MG TAB (VIMPAT) PO SCH ×2 (08:50→20:19)
[2016-04-06] MEDS: LACTOBACILLUS ACIDOPHILUS CAP (BACID) PO SCH ×3 (08:50→17:55)
[2016-04-06 14:00] VITALS: BP 148/64
--- NOTE | 2016-04-06 17:09 | IPN ---
DATE: 04/06/2016 Patient is nonverbal, sleeps and lethargic, but has purposeful movements when prompted by her daughter at the bedside. Repeat lactic acid remains elevated. Patient was restarted on intravenous fluids. PHYSICAL EXAMINATION: VITAL SIGNS: Temperature 97.4, pulse 80, respiratory rate 20, blood pressure 156/70, 95% on two liters nasal cannula. Room air saturation is 93%; however, Chelsea, the emergency room (ER) nurse and healthcare proxy insists continuing with oxygen during the day. Patient's nocturnal oximetry does drop down variably and she does require oxygen levels at night. Per daughter at the bedside, patient has been having coughing fits, slightly improved with Mucinex. She had desaturation yesterday. She laid on the left side; does better when she lays on her right side. Patient is contracted and physical therapy does not believe she will benefit from further services. Generally, patient is awake, alert, oriented to person only, responds to her name, but has her eyes closed most of the time. She does not follow commands. She is contracted at baseline requires 1-2 person assist at home, but family says she walks with a walker with one person assistance. In the hospital, she has been unable to cooperate. NECK: No jugular venous distention (JVD). LUNGS: Diminished coarse breath sounds and rhonchi bilaterally. Air entry is diminished. HEART: S1, S2, sinus rhythm. ABDOMEN: Soft, nontender, nondistended. EXTREMITIES: No pitting edema. Chronic contractures. LABORATORY DATA: CBC and metabolic panel have been reviewed. Lactic acid is 2.1. ASSESSMENT AND PLAN: 89-year-old female, FULL CODE, healthcare proxy is Chelsea, emergency room (ER) nurse, who is daughter and healthcare proxy, phone number is [phone], history of cerebrovascular accident (CVA) with chronic contractures, chronic 1-2 person assistance with ambulation with walker at home, chronic dementia, septic shock, full care at home, Clostridium (C) difficile colitis, on tapering dose of vancomycin due to recent C. diff, history of deep venous thrombosis (DVT), pulmonary embolus (PE), on chronic Coumadin, held due to elevated INR of greater than 4, seizure disorder, hypothyroidism, follows with Dr. Josef Calderon as outpatient, on oxygen at night due to sleep apnea with nocturnal oximetry documenting 84% saturation with variable hypoxia. In the emergency room (ER, patient was brought in due to fever of 101. She was given intravenous imipenem and vancomycin. CT chest showed no consolidation or infiltrate. Intravenous (IV) imipenem was discontinued and vancomycin was continued for complaints of foul urine. Urine culture grew out no bacterial infection and IV vancomycin was also discontinued. While the patient was on vancomycin and imipenem for two days, per the ER. Daughter is healthcare proxy. Patient developed profuse diarrhea, had 12 bowel movements. The case was discussed briefly with Dr. Adler who agreed with discontinuation of all antibiotics in light of recent Clostridium (C) difficile and recurrent bouts of loose bowel movements. Since cultures were negative, patient's vancomycin and imipenem were discontinued. She was continued on oral vancomycin and Tamiflu for respiratory panel showing positive for influenza AH3. CURRENT ISSUES: 1. Influenza AH3, currently on Tamiflu. The patient is insisting on oxygen despite 92% saturation on room air during the day. Patient does have a documented nocturnal oximetry showing desaturations to 84% that are variable. At this time, she is currently on supplemental oxygen, Tamiflu, nebulizer treatments to keep saturations above 88-92%. Steroids have been decreased to oral prednisone. Appears to be stable and will remain on tapering dose. 2. Clostridium (C) difficile colitis, on tapering dose of vancomycin. Patient initially had 12 bowel movements while on imipenem and intravenous vancomycin, both of which have been discontinued once the urine culture was found to be negative with no signs of pneumonia on CT of the chest as well. Gastrointestinal (GI) panel was negative for Clostridium (C) difficile. During this admission, she had normal urinalysis, prior history of Escherichia (E) coli in the urine, Streptococcus anginosus. Patient did receive two days of vancomycin and one day of imipenem which caused 12 bowel movements within hospital day #2. Both vancomycin and imipenem have been discontinued and GI panel has been unremarkable with urine culture being negative for bacterial infection. 3. Persistent lactic acidosis and sepsis secondary to influenza AH3. No other sources of infectious etiology. Patient has not been taking oral intake on her own. Has been requiring intense prompting from the daughter at the bedside with somewhat of an adequate intake; had to resume IV fluids due to thickened liquids from her previous history of cerebrovascular accident (CVA). 3. History of CVA with chronic contractures requiring total care at home and 15/09 care, which the family can provide. She is currently on thickened liquids and pureed diet and continues to potentially aspirate. Per speech therapy, recommendations are for tube feedings. Family, at this time, wants to continue with pureed diet and thickened liquids despite continued aspiration. Patient continues to have desaturations at night most likely secondary to aspiration. Family, daughter, ER nurse and healthcare proxy have decided on full code and continues to continue to feed her despite recommendations of nothing by mouth status and tube feedings per speech therapy due to increased risk of chronic aspiration. Family insists on continuing with the present regimen, thickened liquids, pureed diet, despite recommendations for nothing by mouth status and tube feedings. 4. History of pulmonary embolus (PE), on chronic Coumadin. Patient continues to have elevated INR greater than 3. Will continue to hold the patient's Coumadin today until INR is less than 3. 5. Hypothyroidism. On Synthroid. 6. History of seizure disorder. On Vimpat. 7. Oral thrush. On nystatin. DISPOSITION: Once lactic acidosis is resolved, patient may be discharged home with home care per family request. She is still a full code. Patient's family insists on continuing with supplemental oxygen despite saturations of 92% on room air during the day. Recommendations are for oxygen at bedtime due to nocturnal oximetry showing desaturations of 84%. Patient's healthcare is managed by the daughter who is the healthcare proxy. Mother is demented with history of CVA, nonverbal at baseline with chronic contractures. Patient continues to be a full code. ANGELA
[2016-04-06] MEDS ORDERED: ALPRAZolam 0.25 MG TAB PO ONE (20:00)
[2016-04-06] MEDS: MIRTAZAPINE 15 MG TAB PO SCH (20:19)
[2016-04-06] MEDS: OSELTAMIVIR 6 MG/ML 60ML SUSP PO SCH (20:20)
[2016-04-06] MEDS: ACETAMINOPHEN TAB 650MG DOSE (2X325MG) PO PRN (20:33)
[2016-04-07] MEDS: IPRATROPIUM 0.5MG/ALBUTEROL 2.5MG INH SOL UD 3ML (DUONEB)(J7620) NEB SCH ×4 (02:28→20:47)
[2016-04-07] MEDS: LEVOTHYROXINE 0.075 MG TAB (75 MCG) PO SCH (05:40)
[2016-04-07] MEDS: SLF 3 ML SYR IV SCH ×3 (05:41→22:00)
[2016-04-07 06:00] VITALS: BP 137/61
[2016-04-07 06:23] LABS: MEAN CORPUSCULAR HEMOGLOBIN 29.7 pg (27.0-33.0); MEAN CORPUSCULAR HGB CONC 31.8 g/dl (32.0-36.5); MEAN CORPUSCULAR VOLUME 93.2 fl (80.0-96.0); RED CELL DISTRIBUTION WIDTH 14.3 % (11.5-14.5); WHITE BLOOD COUNT 8.6 K/mm3 (4.0-10.0)
[2016-04-07 06:26] LABS: ANION GAP 8 MEQ/L (8-16); BLOOD UREA NITROGEN 19 MG/DL (7-18); CALCIUM LEVEL 8.4 MG/DL (8.8-10.2); CARBON DIOXIDE LEVEL 28 MEQ/L (21-32); CHLORIDE LEVEL 107 MEQ/L (98-107); CREATININE FOR GFR 0.88 MG/DL (0.55-1.02); GLOMERULAR FILTRATION RATE > 60.0 (>32); GLUCOSE, FASTING 79 MG/DL (83-110); POTASSIUM SERUM 4.8 MEQ/L (3.5-5.1); SODIUM LEVEL 143 MEQ/L (136-145)
[2016-04-07] MEDS ORDERED: D5W 1,000 ML IV SCH (08:00)
[2016-04-07] MEDS: ALPRAZolam 0.25 MG TAB PO PRN ×2 (10:07→15:40)
[2016-04-07 10:08] LABS: INR 2.13
[2016-04-07] MEDS: predniSONE 20 MG TAB PO SCH (10:08)
[2016-04-07] MEDS: guaiFENesin 200 MG TAB PO SCH ×2 (10:08→20:44)
[2016-04-07] MEDS: LACTOBACILLUS ACIDOPHILUS CAP (BACID) PO SCH ×3 (10:08→17:05)
[2016-04-07] MEDS: VANCOMYCIN ORAL SOL 250MG/5ML ORAL SYRINGE PO SCH (10:09)
[2016-04-07] MEDS: NYSTATIN 500,000 U/5 ML SUSP UDC SS SCH ×4 (10:09→20:44)
[2016-04-07] MEDS: LACOSAMIDE 50 MG TAB (VIMPAT) PO SCH ×2 (10:09→20:44)
[2016-04-07] MEDS: CHOLESTYRAMINE 4 GM PWD PKT PO SCH ×2 (10:09→20:44)
--- NOTE | 2016-04-07 10:13 | IPN ---
DATE: 04/07/2016 Patient seen and examined at the bedside. Chart has been reviewed. Patient is nonverbal, contracted, at baseline. Generally awake, alert, oriented to person only. Has her eyes closed throughout the interview. Non-cooperative with examination or interview. At baseline activity level. Bed bound per the daughter. No recurrent coughing fits yesterday. Mouth: Positive thrush. Afebrile 96.3, pulse 73, respiratory rate 18, blood pressure 137/61, 99% 2 liters nasal cannula. Generally, patient is alert, awake, oriented to person only, not cooperative with exam or interview. Patient closes her eyes, does not answer. She is mouth breathing at the bedside with oral thrush. Neck: Supple. Lungs: Diminished course rhonchi bilaterally. Air entry is diminished. Heart: S1, S2. Regular rate and rhythm. Abdomen: Soft, nontender, nondistended. Extremities: Contracted with trace edema. CBC, metabolic panel have been reviewed. INR yesterday was 3.57, today's INR is still pending. ASSESSMENT AND PLAN: This is an 89-year-old FULL CODE, health care proxy is Chelsea, ER nurse, daughter and health care proxy, phone number [phone], history of cerebrovascular accident (CVA) with chronic contractures, chronic 1-2 person assistance with baseline wheelchair, chronic dementia, septic shock, full care at home, Clostridium difficile on tapering dose of vancomycin due to recent Clostridium difficile during a previous admission, history of deep venous thrombosis (DVT), pulmonary embolus (PE), chronic Coumadin held due to elevated INR, seizure disorder, hyperthyroidism, follows with Dr. Josef Calderon as outpatient, oxygen at night due to sleep apnea, nocturnal oximetry documenting 84% saturation with variable hypoxia. In the ER, patient was brought in due to fever of 101. She was given IV vancomycin and meropenem. CT chest showed no consolidation. IV imipenem was discontinued. Vancomycin was continued due to patient's insistence due to complaints of foul urine. Urine culture grew out no bacterial infection. IV vancomycin was also discontinued. While the patient was on vancomycin and imipenem, patient developed 12 bowel movements in one day. Case was briefly discussed with Dr. Nickie Adler, infectious disease specialist , who agreed discontinuation of all antibiotics in light of recent Clostridium difficile colitis, recurrent positive loose bowel movements on broad spectrum antibiotics since urine culture was negative. She was continued on oral vancomycin and Tamiflu due to respiratory panel showing positive findings for Influenza AH3. CURRENT ISSUES: Influenza AH3, currently on Tamiflu. The patient's daughter is persistent on supplemental oxygen despite saturations 92% on room air during the day. Patient does have documented nocturnal oximetry showing desaturations to 84% that are variable. She is currently on oxygen supplement to keep saturations 88-92%. Suction as needed. Nebulizer treatments. Steroids have been decreased to oral prednisone, appears to be stable, will remain on tapering dose. Lactic acidosis. Patient is still on intravenous fluids, being treated with Tamiflu for influenza AH3. Continue with full supportive care. Clostridium difficile colitis on tapering dose of vancomycin. Patient initial had 12 bowel movements while on meropenem and IV vancomycin both of which have been discontinued once urine culture was found to have no bacterial infection, no signs of pneumonia on CT of the chest. GI panel was negative for C. Difficile. During this admission, she had abnormal urinalysis by her history of E. Coli in the urine and strep anginosis. Patient did receive 2 days of vancomycin, one day of imipenem which caused 12 bowel movements during hospital day #2. Both vancomycin and imipenem have been discontinued since gastrointestinal (GI) panel was unremarkable and urine culture negative for bacterial infection. Persistent lactic acidosis and sepsis secondary to influenza AH3. No other sources of infectious etiology aside from prior history of Clostridium difficile on oral vancomycin. Patient has been on thickened liquids and pureed diet with recommendation from speech therapy for a feeding tube. Patient's family will discuss this and will let us know. History of cerebrovascular accident (CVA) with chronic contractures requiring total care at home 15/09 care which the family can provide. She is currently on thickened liquids, pureed diet, continues to aspirate. Per speech therapy, recommendations are for tube feedings. Family, at this time, wants to continue with pureed diet and thickened liquids despite continued aspiration. Patient continues to have desaturations at night most likely secondary to aspiration due to prior history of cerebrovascular accident. Family, patient's daughter who is the healthcare proxy is an ER nurse and insists on FULL CODE and continued full support. She will discuss with brother regarding feeding tube but likely to request feeding tube placement. History of pulmonary embolus (PE), on chronic Coumadin. Patient's INR was discontinued due to coagulopathy with INR of 3.57 yesterday. Will resume her home dose once INR is less than 3. CODE STATUS: FULL CODE. MTDD
[2016-04-07] MEDS: IPRATROPIUM 0.5MG/ALBUTEROL 2.5MG INH SOL UD 3ML (DUONEB)(J7620) NEB PRN (11:18)
[2016-04-07 14:00] VITALS: BP 111/54
[2016-04-07] MEDS ORDERED: ALPRAZolam 0.25 MG TAB PO ONE (20:15)
[2016-04-07] MEDS: MIRTAZAPINE 15 MG TAB PO SCH (20:44)
[2016-04-07 22:00] VITALS: BP 110/56
--- NOTE | 2016-04-07 22:23 | IPNPDOC ---
Text Note Date of Service The patient was seen on 04/07/16. NOTE Subjective: I was called to the unit this evening to evaluate patient due to patient's daughter saying that she had an increased oxygen requirement. Patient's daughter says that patient was stable earlier today on 2 L nasal cannula but this evening dropped her saturations down to 89% on the 2 L nasal cannula. Daughter says patient was having shortness of breath and was hyperventilating. Patient's daughter increased her oxygen to 5 L nasal cannula. Daughter denies patient having any fevers Objective: Vitals: 97% on 5 L nasal cannula with nasal cannula at patient's mouth, oxygen was decreased to 2 L nasal cannula at patient's mouth and patient maintain saturation Gen.: Patient resting comfortably in bed, does not appear to be in any acute distress Heart: Regular rate and rhythm, normal S1-S2. No murmurs, rubs, clicks or gallops Lungs: Transmitted upper airway sounds, otherwise clear to auscultation bilaterally Assessment / Plan: Patient is a 89-year-old female with upper airway / nasal congestion, having reported increased oxygen requirement. Due to patient's upper airway congestion patient was switched to a Ventimask. Patient was put on 28% FiO2 Ventimask, patient maintained her oxygen requirements on that setting. Addendum: 04/07/16 23:40. I was called by patients nurse approximately one hour after seeing the patient due to the patient having increased oxygen requirements. Order was placed for portable chest x-ray, IVF have been stopped (as per order). The patients daughter requested deep suctioning, order was placed. My preceptor for this patient encounter was physically present in the building during the encounter and was fully available. As needed, all aspects of the patient interview, examination, medical decision making process, and medical care plan development were reviewed and approved by the preceptor. Preceptor is aware and concurs with the plan as stated in the body of this note and will attest to such by his/her cosignature. VS,Fishbone, I+O VS, Fishbone, I+O Laboratory Tests 04/07/16 05:43 Calcium Level 8.4 L, Red Blood Count 3.19 L, Mean Corpuscular Volume 93.2, Mean Corpuscular Hemoglobin 29.7, Mean Corpuscular Hemoglobin Concent 31.8 L, Red Cell Distribution Width 14.3 Vital Signs Date Time Temp Pulse Resp B/P Pulse Ox O2 Delivery O2 Flow Rate FiO2 04/07/16 14:00 98.9 92 20 111/54 95 High Flow Cannula 2.0 I&O- Last 24 Hours up to 6 AM 04/07/16 06:00 Intake Total 2320 ml Output Total 0 ml Balance 2320 ml DRE ESQUIVEL DO Apr 07, 2016 22:23
--- NOTE | 2016-04-08 | REPUSA ---
Clinical history: Shortness of breath. Comparison: None. Findings: The mediastinum is within normal limits. The heart is enlarged. The lungs are clear. No ple ural effusion or pneumothorax is seen. The osseous structures and soft tissues are unremarkable. Impression: No acute disease. Cardiomegaly.
[2016-04-08] MEDS: D5W 1,000 ML IV SCH ×2 (00:35→03:56)
[2016-04-08] MEDS: IPRATROPIUM 0.5MG/ALBUTEROL 2.5MG INH SOL UD 3ML (DUONEB)(J7620) NEB SCH ×4 (02:01→19:59)
[2016-04-08 06:00] VITALS: BP 118/62
[2016-04-08] MEDS: SLF 3 ML SYR IV SCH ×3 (06:26→19:57)
[2016-04-08] MEDS: LEVOTHYROXINE 0.075 MG TAB (75 MCG) PO SCH ×2 (06:26→06:28)
[2016-04-08 07:01] LABS: MEAN CORPUSCULAR HEMOGLOBIN 30.4 pg (27.0-33.0); MEAN CORPUSCULAR HGB CONC 32.7 g/dl (32.0-36.5); WHITE BLOOD COUNT 11.3 K/mm3 (4.0-10.0)
[2016-04-08 07:09] LABS: CALCIUM LEVEL 8.4 MG/DL (8.8-10.2); CREATININE FOR GFR 0.99 MG/DL (0.55-1.02); GLOMERULAR FILTRATION RATE 56.4 (>32); POTASSIUM SERUM 4.6 MEQ/L (3.5-5.1)
[2016-04-08 07:30] LABS: INR 1.64
[2016-04-08] MEDS: LACTOBACILLUS ACIDOPHILUS CAP (BACID) PO SCH ×3 (09:00→17:20)
[2016-04-08] MEDS: CHOLESTYRAMINE 4 GM PWD PKT PO SCH ×2 (09:00→19:56)
[2016-04-08] MEDS: ALPRAZolam 0.25 MG TAB PO PRN ×3 (09:00→21:54)
[2016-04-08] MEDS: guaiFENesin 200 MG TAB PO SCH ×2 (09:01→19:55)
[2016-04-08] MEDS: VANCOMYCIN ORAL SOL 250MG/5ML ORAL SYRINGE PO SCH (09:01)
[2016-04-08] MEDS: NYSTATIN 500,000 U/5 ML SUSP UDC SS SCH ×4 (09:01→19:56)
[2016-04-08] MEDS: LACOSAMIDE 50 MG TAB (VIMPAT) PO SCH ×2 (09:01→19:56)
[2016-04-08] MEDS: predniSONE 20 MG TAB PO SCH (09:01)
--- NOTE | 2016-04-08 10:06 | REP ---
Clinical: Shortness of breath. Comparison: 04/07/2016. Findings: Examination is limited by portable technique, underpenetration, and positioning. Cardiomegaly remains stable. Chronic changes noted. Trace linear atelectasis in the left lower lung zone. No further acute cardiopulmonary process identified. No effusion. No pneumothorax. Skeletal structures demonstrate stable degenerative changes and osteopenia. Impression: Chronic stable changes. Trace left basilar atelectasis. Signed by Chepe Schroeder MD 04/08/2016 09:57 A
--- NOTE | 2016-04-08 11:42 | IPNPDOC ---
Text Note Date of Service The patient was seen on 04/08/16. NOTE Subjective: Patient is an 89 year old female with a PMHx of Asthma, Alzheimer, CVA (02/2014), DVT / PE (2013, now on Coumadin), Hypothyroidism, Seizure disorder , Oxygen requirement with sleep and recent history of c. diff colitis ( currently on vancomycin PO), presented for a fever at home. Patient was recently discharged from the hospital on 03/26 for septic shock / hypovolemic shock of unknown etiology and possible viral infection. She was discharged home and the family noted that on Thursday evening (03/29) she because to have a cough, scratchy through, runny nose and fever. She was taken to [facility], however they are not sure what was recommended. She was not admitted at that time. Patient was seen and examined at the bedside. She remains non-verbal and contracted. She does not participate in examination. Objective: Vitals (See below) General: Lying in bed, no acute distress, on venti-mask of 35% FiO2, asleep, oriented x 0 HEENT: NC, AT CVS: RRR, +S1S2 Lungs: Fair air entry b/l, + rhonchi bilaterally Abdomen: Soft, ND, NT, +BSx4 Extremities: - Edema, - Calf tenderness Assessment and plan: 1. Admitted for Fever - likely 2/2 influenza AH3 - Clinically has no change in mental status, breathing appears to be at baseline - Physical reveals scattered rhonchi, requiring additional supplemental oxygen - Blood cultures negative, Urine cultures negative, C. diff negative - Lactic acidosis resolved - CXR 04/08 - unchanged - s/p Vanomycin and Meropenem - c/w Tamifu 2. s/p Lactic acidosis - s/p IV fluid hydration 3. C. difficile colitis - Had episodes of multiple frequent bowel movements while inpatient - likely 2/ 2 antibiotic use - repeat stool workup negative for C. Diff - c/w Vancomycin PO taper 4. Dysphagia - currently on thickened liquids and pureed diet - c/w aspiration precautions - recommendation for feeding tube by Speech therapy - Family to decide; healthcare proxy and brother 5. 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 Hx of PE - INR today of 1.64 - c/w Coumadin; will re-start today at 2.5 daily 7. Asthma, acute exacerbation - c/w breathing treatments - c/w prednisone taper 8. Alzheimer 9. Hypothyroidism - c/w levothyroxine 10. Seizure disorder - c/w lacosamide 11. DVT prophylaxis - c/w full anticoagulation with Coumadin Disposition: - Healthcare proxy: Chelsea (ER Nurse) [phone] Code status: - Full code VS,Fishbone, I+O VS, Fishbone, I+O Laboratory Tests 04/08/16 06:26 Calcium Level 8.4 L, Red Blood Count 3.38 L, Mean Corpuscular Volume 93.0, Mean Corpuscular Hemoglobin 30.4, Mean Corpuscular Hemoglobin Concent 32.7, Red Cell Distribution Width 14.0 Vital Signs Date Time Temp Pulse Resp B/P Pulse Ox O2 Delivery O2 Flow Rate FiO2 04/08/16 09:00 Nasal Cannula 4.0 04/08/16 07:36 90 04/08/16 06:00 96.4 77 22 118/62 04/07/16 23:00 35 I&O- Last 24 Hours up to 6 AM 04/08/16 06:00 Intake Total 720 ml Balance 720 ml ROME SOLANO MD Apr 08, 2016 11:42
[2016-04-08 14:00] VITALS: BP 132/60
[2016-04-08] MEDS ORDERED: ALPRAZolam 0.5 MG TAB PO PRN (15:30)
[2016-04-08] MEDS: WARFARIN SOD 2.5 MG TAB PO SCH (17:21)
[2016-04-08] MEDS: MIRTAZAPINE 15 MG TAB PO SCH (19:56)
[2016-04-08 22:00] VITALS: BP 112/54
[2016-04-09] MEDS: IPRATROPIUM 0.5MG/ALBUTEROL 2.5MG INH SOL UD 3ML (DUONEB)(J7620) NEB SCH ×4 (01:47→20:27)
[2016-04-09 06:00] VITALS: BP 104/48
[2016-04-09] MEDS: SLF 3 ML SYR IV SCH ×3 (06:21→22:00)
[2016-04-09] MEDS: LEVOTHYROXINE 0.075 MG TAB (75 MCG) PO SCH (06:21)
[2016-04-09 06:58] LABS: MEAN CORPUSCULAR HEMOGLOBIN 30.1 pg (27.0-33.0); MEAN CORPUSCULAR HGB CONC 32.1 g/dl (32.0-36.5); MEAN CORPUSCULAR VOLUME 93.6 fl (80.0-96.0); RED CELL DISTRIBUTION WIDTH 14.3 % (11.5-14.5); WHITE BLOOD COUNT 10.4 K/mm3 (4.0-10.0)
[2016-04-09 07:12] LABS: CALCIUM LEVEL 8.6 MG/DL (8.8-10.2); CREATININE FOR GFR 1.16 MG/DL (0.55-1.02); GLOMERULAR FILTRATION RATE 46.9 (>32); POTASSIUM SERUM 4.9 MEQ/L (3.5-5.1)
[2016-04-09] MEDS: guaiFENesin 200 MG TAB PO SCH ×2 (08:01→21:12)
[2016-04-09] MEDS: NYSTATIN 500,000 U/5 ML SUSP UDC SS SCH ×4 (08:01→21:12)
[2016-04-09] MEDS: CHOLESTYRAMINE 4 GM PWD PKT PO SCH ×3 (08:01→21:12)
[2016-04-09] MEDS: LACOSAMIDE 50 MG TAB (VIMPAT) PO SCH ×2 (08:02→21:12)
[2016-04-09] MEDS: LACTOBACILLUS ACIDOPHILUS CAP (BACID) PO SCH ×3 (08:02→18:24)
[2016-04-09] MEDS: predniSONE 20 MG TAB PO SCH (08:02)
--- NOTE | 2016-04-09 11:59 | IPNPDOC ---
Text Note Date of Service The patient was seen on 04/09/16. 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 Diff colitis ( currently on vancomycin PO), presented for a fever at home. Patient was recently discharged from the hospital on 03/26 for septic shock / hypovolemic shock of unknown etiology and possible viral infection. She was discharged home and the family noted that on Thursday evening (03/29) she because to have a cough, scratchy through, runny nose and fever. She was taken to [facility], however they are not sure what was recommended. She was not admitted at that time. Patient was seen and examined at the bedside. She remains non-verbal and contracted. She is sitting up in bed with nasal cannula oxygen in place. Objective: Vitals (See below) General: Lying in bed, no acute distress, on venti-mask of 35% FiO2, asleep, oriented x 0 HEENT: NC, AT CVS: RRR, +S1S2 Lungs: Fair air entry b/l, + rhonchi bilaterally Abdomen: Soft, ND, NT, +BSx4 Extremities: - Edema, - Calf tenderness Assessment and plan: 1. Admitted for Fever - likely 2/2 influenza AH3 - Clinically has no change in mental status, breathing appears to be at baseline - No recorded fevers - Physical reveals scattered rhonchi, requiring additional supplemental oxygen - Requirements for supplemental oxygen have gone down; when back to room air will consider DC back home - Blood cultures negative, Urine cultures negative, C. diff negative - Leukocytosis trending down - Lactic acidosis resolved - CXR 04/08 - unchanged - s/p Vanomycin and Meropenem - c/w Tamifu 2. s/p Lactic acidosis - s/p IV fluid hydration 3. C. difficile colitis - Had episodes of multiple frequent bowel movements while inpatient - likely 2/ 2 antibiotic use - repeat stool workup negative for C. Diff - c/w Vancomycin PO taper 4. Dysphagia - currently on thickened liquids and pureed diet - c/w aspiration precautions - recommendation for feeding tube by Speech therapy - Family to hold off on PEG 5. 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 Hx of PE - INR today of pending - c/w Coumadin; will c/w 2.5 daily 7. Asthma, acute exacerbation - c/w breathing treatments - c/w prednisone taper 8. Alzheimer 9. Hypothyroidism - c/w levothyroxine 10. Seizure disorder - c/w lacosamide 11. 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 DVT prophylaxis - c/w full anticoagulation with Coumadin Disposition: - Healthcare proxy: Chelsea (ER Nurse) [phone] Code status: - Full code VS,Fishbone, I+O VS, Fishbone, I+O Laboratory Tests 04/09/16 06:40 Calcium Level 8.6 L, Red Blood Count 3.23 L, Mean Corpuscular Volume 93.6, Mean Corpuscular Hemoglobin 30.1, Mean Corpuscular Hemoglobin Concent 32.1, Red Cell Distribution Width 14.3 Vital Signs Date Time Temp Pulse Resp B/P Pulse Ox O2 Delivery O2 Flow Rate FiO2 04/09/16 09:00 Nasal Cannula 2.0 04/09/16 06:00 96.8 78 20 104/48 92 04/07/16 23:00 35 I&O- Last 24 Hours up to 6 AM 04/09/16 06:00 Intake Total 720 ml Balance 720 ml ROME SOLANO MD Apr 09, 2016 11:59
[2016-04-09] MEDS ORDERED: NS 1,000 ML IV SCH (12:00)
[2016-04-09 12:31] LABS: INR 1.65
[2016-04-09 14:00] VITALS: BP 140/62
[2016-04-09] MEDS: ALPRAZolam 0.25 MG TAB PO PRN ×2 (16:00→20:06)
[2016-04-09] MEDS: WARFARIN SOD 2.5 MG TAB PO SCH (16:00)
[2016-04-09] MEDS: MIRTAZAPINE 15 MG TAB PO SCH (21:12)
[2016-04-09 22:00] VITALS: BP 132/65
[2016-04-10 01:07] VITALS: O2SAT 94
[2016-04-10] MEDS: IPRATROPIUM 0.5MG/ALBUTEROL 2.5MG INH SOL UD 3ML (DUONEB)(J7620) NEB SCH ×4 (01:10→20:51)
[2016-04-10 06:00] VITALS: BP 102/59
[2016-04-10] MEDS: SLF 3 ML SYR IV SCH ×3 (06:00→22:00)
[2016-04-10] MEDS: LEVOTHYROXINE 0.075 MG TAB (75 MCG) PO SCH ×2 (06:00→06:01)
[2016-04-10 06:57] LABS: MEAN CORPUSCULAR HEMOGLOBIN 30.2 pg (27.0-33.0); MEAN CORPUSCULAR HGB CONC 32.1 g/dl (32.0-36.5); MEAN CORPUSCULAR VOLUME 94.1 fl (80.0-96.0); RED CELL DISTRIBUTION WIDTH 14.5 % (11.5-14.5); WHITE BLOOD COUNT 12.3 K/mm3 (4.0-10.0)
[2016-04-10 06:59] LABS: INR 2.22
[2016-04-10 07:05] LABS: CREATININE FOR GFR 1.05 MG/DL (0.55-1.02); GLOMERULAR FILTRATION RATE 52.7 (>32); POTASSIUM SERUM 4.5 MEQ/L (3.5-5.1)
[2016-04-10] MEDS: guaiFENesin 200 MG TAB PO SCH ×2 (08:19→20:30)
[2016-04-10] MEDS: CHOLESTYRAMINE 4 GM PWD PKT PO SCH ×2 (08:19→16:10)
[2016-04-10] MEDS: NYSTATIN 500,000 U/5 ML SUSP UDC SS SCH ×4 (08:20→20:30)
[2016-04-10] MEDS: VANCOMYCIN ORAL SOL 250MG/5ML ORAL SYRINGE PO SCH (08:20)
[2016-04-10] MEDS: LACOSAMIDE 50 MG TAB (VIMPAT) PO SCH ×2 (08:20→20:30)
[2016-04-10] MEDS: LACTOBACILLUS ACIDOPHILUS CAP (BACID) PO SCH ×3 (08:20→17:30)
[2016-04-10] MEDS: predniSONE 20 MG TAB PO SCH (08:20)
[2016-04-10] MEDS: ALPRAZolam 0.25 MG TAB PO PRN ×2 (09:54→16:11)
--- NOTE | 2016-04-10 13:16 | IPNPDOC ---
Text Note Date of Service The patient was seen on 04/10/16. 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 Diff colitis ( currently on vancomycin PO), presented for a fever at home. Patient was recently discharged from the hospital on 03/26 for septic shock / hypovolemic shock of unknown etiology and possible viral infection. She was discharged home and the family noted that on Thursday evening (03/29) she because to have a cough, scratchy through, runny nose and fever. She was taken to [facility], however they are not sure what was recommended. She was not admitted at that time. Patient was seen and examined at the bedside. She was seen eating breakfast fully assisted by her daughter. Still remains non-verbal. Objective: Vitals (See below) General: Lying in bed, no acute distress, asleep, oriented x 0 HEENT: NC, AT CVS: RRR, +S1S2 Lungs: Fair air entry b/l, + rhonchi bilaterally Abdomen: Soft, ND, NT, +BSx4 Extremities: - Edema, - Calf tenderness Assessment and plan: 1. Admitted for Fever - likely 2/2 influenza AH3 - No change in mental status, breathing appears to be at baseline - No recorded fevers or events overnight, daughter notes that yesterday was un- eventful - Physical reveals scattered rhonchi - Requirements for supplemental oxygen continue to go down;awaiting her to return to room air - Blood cultures negative, Urine cultures negative, C. diff negative - Leukocytosis peak today - however no other signs of infection - Lactic acidosis resolved - CXR 04/08 - unchanged - s/p Vanomycin and Meropenem - c/w Tamifu 2. s/p Lactic acidosis - s/p IV fluid hydration 3. C. difficile colitis - Had episodes of multiple frequent bowel movements while inpatient - likely 2/ 2 antibiotic use - repeat stool workup negative for C. Diff - c/w Vancomycin PO taper 4. Dysphagia - currently on thickened liquids and pureed diet - c/w aspiration precautions - recommendation for feeding tube by Speech therapy - Family to hold off on PEG at this point in time 5. 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 Hx of PE - INR o f2.22 - c/w Coumadin; will c/w 2 daily 7. Asthma, acute exacerbation - c/w breathing treatments - c/w prednisone taper; will change to 10 mg for 04/11 to 8. Alzheimer 9. Hypothyroidism - c/w levothyroxine 10. Seizure disorder - c/w lacosamide 11. 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 DVT prophylaxis - c/w full anticoagulation with Coumadin Disposition: - Healthcare proxy: Chelsea (ER Nurse) [phone] Code status: - Full code VS,Fishbone, I+O VS, Fishbone, I+O Laboratory Tests 04/10/16 06:39 Calcium Level 8.0 L, Red Blood Count 3.17 L, Mean Corpuscular Volume 94.1, Mean Corpuscular Hemoglobin 30.2, Mean Corpuscular Hemoglobin Concent 32.1, Red Cell Distribution Width 14.5 Vital Signs Date Time Temp Pulse Resp B/P Pulse Ox O2 Delivery O2 Flow Rate FiO2 04/10/16 09:00 Nasal Cannula 1.0 04/10/16 06:00 96.8 76 20 102/59 93 04/07/16 23:00 35 I&O- Last 24 Hours up to 6 AM 04/10/16 06:00 Intake Total 1200 ml Balance 1200 ml ROME SOLANO MD Apr 10, 2016 13:16
[2016-04-10] MEDS ORDERED: NS 500 ML IV SCH (13:30)
[2016-04-10] MEDS: WARFARIN SOD 2 MG TAB PO SCH (16:10)
[2016-04-10] MEDS ORDERED: WARFARIN SOD 2.5 MG TAB PO SCH (17:00)
[2016-04-10] MEDS: MIRTAZAPINE 15 MG TAB PO SCH (20:31)
[2016-04-11] MEDS: IPRATROPIUM 0.5MG/ALBUTEROL 2.5MG INH SOL UD 3ML (DUONEB)(J7620) NEB SCH ×4 (02:52→20:30)
[2016-04-11 06:00] VITALS: BP 98/55
[2016-04-11 06:20] LABS: INR 2.48
[2016-04-11] MEDS: LEVOTHYROXINE 0.075 MG TAB (75 MCG) PO SCH (06:56)
[2016-04-11] MEDS: SLF 3 ML SYR IV SCH ×3 (06:56→20:47)
[2016-04-11 07:43] LABS: BASO % 0.1 % (0.0-1.0); EOS # 0.1 K/mm3 (0.0-0.50); EOS % 0.9 % (0.0-3.0); LARGE UNSTAINED CELL # 0.1 K/mm3 (0.0-0.4); LARGE UNSTAINED CELL % 0.7 % (0.0-4.0); LYMPH # 1.8 K/mm3 (1.5-4.5); LYMPH % 12.4 % (24.0-44.0); MEAN CORPUSCULAR HEMOGLOBIN 30.2 pg (27.0-33.0); MEAN CORPUSCULAR HGB CONC 31.7 g/dl (32.0-36.5); MEAN CORPUSCULAR VOLUME 95.1 fl (80.0-96.0); MONO # 0.8 K/mm3 (0.0-0.8); NEUTROPHILS # 10.7 K/mm3 (1.8-7.7); NEUTROPHILS % 79.8 % (36.0-66.0); PLATELET COUNT, AUTOMATED 278 k/mm3 (150-450); RED CELL DISTRIBUTION WIDTH 14.5 % (11.5-14.5); WHITE BLOOD COUNT 13.5 K/mm3 (4.0-10.0)
[2016-04-11 07:57] LABS: ALBUMIN 2.6 GM/DL (3.2-5.2); ALBUMIN/GLOBULIN RATIO 0.93 (1.00-1.93); BILIRUBIN,TOTAL 0.4 MG/DL (0.2-1.0); CALCIUM LEVEL 8.1 MG/DL (8.8-10.2); CREATININE FOR GFR 1.05 MG/DL (0.55-1.02); GLOMERULAR FILTRATION RATE 52.7 (>32); MAGNESIUM LEVEL 2.2 MG/DL (1.8-2.4); POTASSIUM SERUM 4.6 MEQ/L (3.5-5.1); TOTAL PROTEIN 5.4 GM/DL (6.4-8.2)
[2016-04-11] MEDS: NYSTATIN 500,000 U/5 ML SUSP UDC SS SCH ×4 (09:21→20:34)
[2016-04-11] MEDS: guaiFENesin 200 MG TAB PO SCH ×2 (09:22→20:34)
[2016-04-11] MEDS: LACTOBACILLUS ACIDOPHILUS CAP (BACID) PO SCH ×3 (09:22→17:20)
[2016-04-11] MEDS: CHOLESTYRAMINE 4 GM PWD PKT PO SCH ×2 (09:22→17:00)
[2016-04-11] MEDS: LACOSAMIDE 50 MG TAB (VIMPAT) PO SCH ×2 (09:23→20:34)
[2016-04-11] MEDS: predniSONE 20 MG TAB PO SCH (09:23)
[2016-04-11] MEDS: ALPRAZolam 0.25 MG TAB PO PRN ×2 (10:19→15:45)
--- NOTE | 2016-04-11 11:37 | IPNPDOC ---
Text Note Date of Service The patient was seen on 04/11/16. 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 Diff colitis ( currently on vancomycin PO), presented for a fever at home. Patient was recently discharged from the hospital on 03/26 for septic shock / hypovolemic shock of unknown etiology and possible viral infection. She was discharged home and the family noted that on Thursday evening (03/29) she because to have a cough, scratchy through, runny nose and fever. She was taken to [facility], however they are not sure what was recommended. She was not admitted at that time. Patient was seen and examined at the bedside. She was seen with chest PT running at the time. Patient's daughter noted that she has not had any acute events overnight. Objective: Vitals (See below) General: Lying in bed, no acute distress, asleep, oriented x 0 HEENT: NC, AT CVS: RRR, +S1S2 Lungs: Fair air entry b/l, + rhonchi bilaterally Abdomen: Soft, ND, NT, +BSx4 Extremities: - Edema, - Calf tenderness Assessment and plan: 1. Admitted for Fever - likely 2/2 influenza AH3, possible UTI - No change in mental status, breathing appears to be at baseline - No recorded fevers or events overnight, daughter notes that yesterday was un- eventful - Physical reveals scattered rhonchi - Requirements for supplemental oxygen continue to go down; awaiting her to return to room air - Blood cultures negative, Urine cultures - yeast like organisms, C. diff negative - Leukocytosis has been trending up --- Repeat UA shows 3+ LE, 20 WBC and 2+ Bacteria - CXR 04/08 - unchanged; will repeat today - s/p Vanomycin and Meropenem - Will start Levaquin for abnormal UA - c/w Tamifu 2. s/p Lactic acidosis - s/p IV fluid hydration 3. C. difficile colitis - Had episodes of multiple frequent bowel movements while inpatient - likely 2/ 2 antibiotic use - repeat stool workup negative for C. Diff - c/w Vancomycin PO taper 4. Dysphagia - currently on thickened liquids and pureed diet - c/w aspiration precautions - recommendation for feeding tube by Speech therapy - Family to hold off on PEG at this point in time 5. 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 Hx of PE - INR of 2.48 - c/w Coumadin; will c/w 2 daily 7. Asthma, acute exacerbation - c/w breathing treatments - c/w prednisone taper; will change to 10 mg for 04/11 to 8. Alzheimer 9. Hypothyroidism - c/w levothyroxine 10. Seizure disorder - c/w lacosamide 11. 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 DVT prophylaxis - c/w full anticoagulation with Coumadin Disposition: - Healthcare proxy: Chelsea (ER Nurse) [phone] Code status: - Full code VS,Fishbone, I+O VS, Fishbone, I+O Laboratory Tests 04/11/16 05:50 Calcium Level 8.1 L, Aspartate Amino Transf (AST/SGOT) 12 L, Alanine Aminotransferase (ALT/SGPT) 33, Alkaline Phosphatase 83, Total Bilirubin 0.4, Total Protein 5.4 L, Albumin 2.6 L, Red Blood Count 3.12 L, Mean Corpuscular Volume 95.1, Mean Corpuscular Hemoglobin 30.2, Mean Corpuscular Hemoglobin Concent 31.7 L, Red Cell Distribution Width 14.5, Neutrophils (%) (Auto) 79.8 H , Lymphocytes (%) (Auto) 12.4 L, Monocytes (%) (Auto) 6.0 H, Eosinophils (%) ( Auto) 0.9, Basophils (%) (Auto) 0.1, Neutrophils # (Auto) 10.7 H, Lymphocytes # (Auto) 1.8, Monocytes # (Auto) 0.8, Eosinophils # (Auto) 0.1, Basophils # (Auto ) 0.0 Vital Signs Date Time Temp Pulse Resp B/P Pulse Ox O2 Delivery O2 Flow Rate FiO2 04/11/16 06:00 96.1 80 20 98/55 95 Nasal Cannula 2.0 04/07/16 23:00 35 I&O- Last 24 Hours up to 6 AM 04/11/16 06:00 Intake Total 2137 ml Balance 2137 ml ROME SOLANO MD Apr 11, 2016 11:37
[2016-04-11] MEDS ORDERED: LevoFLOXacin IV 500 MG in APPROPRIATE DILUENT 1 EA IV ONE (12:00)
[2016-04-11 14:00] VITALS: BP 140/60
--- NOTE | 2016-04-11 16:24 | REP ---
Clinical: Chest pain. Dyspnea. Comparison: 04/08/2016. Findings: Examination is limited by portable technique, underpenetration, positioning and decreased inspiratory effort. Mediastinum and cardiac silhouette are relatively stable and cardiomegaly is again appreciated. Lung holguin demonstrate chronic interstitial changes bibasilar atelectasis and possible small pleural effusions as well as mild interstitial edema cannot be excluded. Impression: Limited examination cannot exclude interstitial edema with bibasilar atelectasis and possible small pleural effusions. Signed by Chepe Schroeder MD 04/11/2016 04:16 P
[2016-04-11] MEDS: WARFARIN SOD 2 MG TAB PO SCH (17:20)
[2016-04-11] MEDS: ACETAMINOPHEN TAB 650MG DOSE (2X325MG) PO PRN (17:20)
[2016-04-11] MEDS: IPRATROPIUM 0.5MG/ALBUTEROL 2.5MG INH SOL UD 3ML (DUONEB)(J7620) NEB PRN (17:22)
[2016-04-11] MEDS ORDERED: NS 1,000 ML IV SCH (17:45)
[2016-04-11] MEDS: MIRTAZAPINE 15 MG TAB PO SCH (20:47)
[2016-04-11 21:20] VITALS: BP 158/67
[2016-04-12] MEDS: IPRATROPIUM 0.5MG/ALBUTEROL 2.5MG INH SOL UD 3ML (DUONEB)(J7620) NEB SCH ×4 (02:18→21:48)
[2016-04-12 02:24] VITALS: O2SAT 95
[2016-04-12] MEDS: SLF 3 ML SYR IV SCH ×3 (05:18→21:19)
[2016-04-12 06:15] LABS: BASO % 0.3 % (0.0-1.0); EOS # 0.1 K/mm3 (0.0-0.50); EOS % 1.3 % (0.0-3.0); LARGE UNSTAINED CELL # 0.1 K/mm3 (0.0-0.4); LARGE UNSTAINED CELL % 1.2 % (0.0-4.0); LYMPH # 1.6 K/mm3 (1.5-4.5); LYMPH % 15.2 % (24.0-44.0); MEAN CORPUSCULAR HEMOGLOBIN 30.2 pg (27.0-33.0); MEAN CORPUSCULAR HGB CONC 32.4 g/dl (32.0-36.5); MEAN CORPUSCULAR VOLUME 93.2 fl (80.0-96.0); MONO # 0.5 K/mm3 (0.0-0.8); MONO % 5.2 % (0.0-5.0); NEUTROPHILS # 7.5 K/mm3 (1.8-7.7); NEUTROPHILS % 76.8 % (36.0-66.0); PLATELET COUNT, AUTOMATED 259 k/mm3 (150-450); RED CELL DISTRIBUTION WIDTH 14.5 % (11.5-14.5); WHITE BLOOD COUNT 9.8 K/mm3 (4.0-10.0)
[2016-04-12 06:18] LABS: ALBUMIN 2.3 GM/DL (3.2-5.2); ALBUMIN/GLOBULIN RATIO 0.74 (1.00-1.93); BILIRUBIN,TOTAL 0.3 MG/DL (0.2-1.0); CALCIUM LEVEL 7.8 MG/DL (8.8-10.2); CREATININE FOR GFR 0.97 MG/DL (0.55-1.02); GLOMERULAR FILTRATION RATE 57.7 (>32); INR 3.04; POTASSIUM SERUM 4.2 MEQ/L (3.5-5.1); TOTAL PROTEIN 5.4 GM/DL (6.4-8.2)
[2016-04-12 06:30] VITALS: BP 125/58
[2016-04-12] MEDS: LEVOTHYROXINE 0.075 MG TAB (75 MCG) PO SCH (06:34)
[2016-04-12] MEDS: CHOLESTYRAMINE 4 GM PWD PKT PO SCH ×2 (09:00→17:00)
[2016-04-12] MEDS: NYSTATIN 500,000 U/5 ML SUSP UDC SS SCH ×4 (10:01→21:19)
[2016-04-12] MEDS: VANCOMYCIN ORAL SOL 250MG/5ML ORAL SYRINGE PO SCH (10:01)
[2016-04-12] MEDS: guaiFENesin 200 MG TAB PO SCH ×2 (10:03→21:19)
[2016-04-12] MEDS: LACTOBACILLUS ACIDOPHILUS CAP (BACID) PO SCH ×3 (10:03→17:14)
[2016-04-12] MEDS: predniSONE 20 MG TAB PO SCH (10:03)
[2016-04-12] MEDS: LACOSAMIDE 50 MG TAB (VIMPAT) PO SCH ×2 (10:04→21:19)
[2016-04-12] MEDS: ALPRAZolam 0.25 MG TAB PO PRN ×2 (10:07→17:13)
--- NOTE | 2016-04-12 12:39 | IPNPDOC ---
Text Note Date of Service The patient was seen on 04/12/16. 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 Diff colitis ( currently on vancomycin PO), presented for a fever at home. Patient was recently discharged from the hospital on 03/26 for septic shock / hypovolemic shock of unknown etiology and possible viral infection. She was discharged home and the family noted that on Thursday evening (03/29) she because to have a cough, scratchy through, runny nose and fever. She was taken to [facility], however they are not sure what was recommended. She was not admitted at that time. Patient was seen sitting up in bed and was examined at the bedside. Remains non- verbal. Daughter present in room. Noted she has not had any events overnight. Objective: Vitals (See below) General: Lying in bed, no acute distress, asleep, oriented x 0 HEENT: NC, AT CVS: RRR, +S1S2 Lungs: Fair air entry b/l, + rhonchi bilaterally Abdomen: Soft, ND, NT, +BSx4 Extremities: - Edema, - Calf tenderness Assessment and plan: 1. Admitted for Fever - likely 2/2 influenza AH3, possible UTI - No change in mental status, breathing appears to be at baseline - No recorded fevers or events overnight, daughter notes that yesterday was un- eventful - Physical reveals scattered rhonchi - Requirements for supplemental oxygen continue to go down; awaiting her to return to room air - Blood cultures negative, Urine cultures - yeast like organisms, C. diff negative - Leukocytosis has been trending up; has normalized --- Repeat UA shows 3+ LE, 20 WBC and 2+ Bacteria - CXR 04/08 - unchanged; will repeat today - s/p Vanomycin and Meropenem and Oseltamivir - c/w Levaquin (Day #2) 2. s/p Lactic acidosis - s/p IV fluid hydration 3. C. difficile colitis - Had episodes of multiple frequent bowel movements while inpatient - likely 2/ 2 antibiotic use - repeat stool workup negative for C. Diff - c/w Vancomycin PO taper 4. Dysphagia - currently on thickened liquids and pureed diet - c/w aspiration precautions - recommendation for feeding tube by Speech therapy - Family to hold off on PEG at this point in time 5. 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 Hx of PE - INR of 3.4 - Will hold Coumadin today 7. Asthma, acute exacerbation - c/w breathing treatments - Will discontinue prednisone today 8. Alzheimer 9. Hypothyroidism - c/w levothyroxine 10. Seizure disorder - c/w lacosamide 11. 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 DVT prophylaxis - c/w full anticoagulation with Coumadin Disposition: - Healthcare proxy: Chelsea (ER Nurse) [phone] - When O2 requirement normalizes will send home Code status: - Full code VS,Fishbone, I+O VS, Fishbone, I+O Laboratory Tests 04/12/16 05:29 Calcium Level 7.8 L, Aspartate Amino Transf (AST/SGOT) 15, Alanine Aminotransferase (ALT/SGPT) 28, Alkaline Phosphatase 76, Total Bilirubin 0.3, Total Protein 5.4 L, Albumin 2.3 L, Red Blood Count 2.96 L, Mean Corpuscular Volume 93.2, Mean Corpuscular Hemoglobin 30.2, Mean Corpuscular Hemoglobin Concent 32.4, Red Cell Distribution Width 14.5, Neutrophils (%) (Auto) 76.8 H, Lymphocytes (%) (Auto) 15.2 L, Monocytes (%) (Auto) 5.2 H, Eosinophils (%) (Auto ) 1.3, Basophils (%) (Auto) 0.3, Neutrophils # (Auto) 7.5, Lymphocytes # (Auto) 1.6, Monocytes # (Auto) 0.5, Eosinophils # (Auto) 0.1, Basophils # (Auto) 0.0 Vital Signs Date Time Temp Pulse Resp B/P Pulse Ox O2 Delivery O2 Flow Rate FiO2 04/12/16 06:30 96.9 74 18 125/58 99 Nasal Cannula 2.0 04/07/16 23:00 35 I&O- Last 24 Hours up to 6 AM 04/12/16 06:00 Intake Total 1610 ml Output Total 1300 ml Balance 310 ml ROME SOLANO MD Apr 12, 2016 12:39
[2016-04-12] MEDS: LevoFLOXacin IV 250 MG in APPROPRIATE DILUENT 1 EA IV SCH (12:57)
[2016-04-12 14:00] VITALS: BP 147/65
[2016-04-12] MEDS: MIRTAZAPINE 15 MG TAB PO SCH (21:19)
[2016-04-12 22:05] VITALS: BP 140/74
[2016-04-13 02:49] VITALS: O2SAT 98
[2016-04-13] MEDS: IPRATROPIUM 0.5MG/ALBUTEROL 2.5MG INH SOL UD 3ML (DUONEB)(J7620) NEB SCH ×4 (02:49→19:53)
[2016-04-13 05:59] LABS: BASO % 0.2 % (0.0-1.0); EOS # 0.1 K/mm3 (0.0-0.50); EOS % 1.4 % (0.0-3.0); LARGE UNSTAINED CELL # 0.1 K/mm3 (0.0-0.4); LARGE UNSTAINED CELL % 0.7 % (0.0-4.0); LYMPH # 1.8 K/mm3 (1.5-4.5); LYMPH % 16.9 % (24.0-44.0); MEAN CORPUSCULAR HEMOGLOBIN 30.1 pg (27.0-33.0); MEAN CORPUSCULAR HGB CONC 32.3 g/dl (32.0-36.5); MEAN CORPUSCULAR VOLUME 93.3 fl (80.0-96.0); MONO # 0.5 K/mm3 (0.0-0.8); MONO % 4.9 % (0.0-5.0); NEUTROPHILS # 7.6 K/mm3 (1.8-7.7); NEUTROPHILS % 75.7 % (36.0-66.0); PLATELET COUNT, AUTOMATED 257 k/mm3 (150-450); RED CELL DISTRIBUTION WIDTH 14.8 % (11.5-14.5)
[2016-04-13 06:06] LABS: INR 2.58
[2016-04-13 06:10] VITALS: BP 125/50
[2016-04-13 06:22] LABS: ALBUMIN 2.4 GM/DL (3.2-5.2); ALBUMIN/GLOBULIN RATIO 0.8 (1.00-1.93); BILIRUBIN,TOTAL 0.3 MG/DL (0.2-1.0); CALCIUM LEVEL 8.2 MG/DL (8.8-10.2); CREATININE FOR GFR 1.08 MG/DL (0.55-1.02); POTASSIUM SERUM 4.5 MEQ/L (3.5-5.1); TOTAL PROTEIN 5.4 GM/DL (6.4-8.2)
[2016-04-13] MEDS: SLF 3 ML SYR IV SCH ×3 (06:39→21:54)
[2016-04-13] MEDS: LEVOTHYROXINE 0.075 MG TAB (75 MCG) PO SCH (06:39)
[2016-04-13] MEDS: NYSTATIN 500,000 U/5 ML SUSP UDC SS SCH ×4 (09:27→21:54)
[2016-04-13] MEDS: LACOSAMIDE 50 MG TAB (VIMPAT) PO SCH ×2 (09:27→21:53)
[2016-04-13] MEDS: LACTOBACILLUS ACIDOPHILUS CAP (BACID) PO SCH ×3 (09:27→18:12)
[2016-04-13] MEDS: guaiFENesin 200 MG TAB PO SCH ×2 (09:27→21:54)
[2016-04-13] MEDS: ALPRAZolam 0.25 MG TAB PO PRN ×3 (09:28→18:12)
[2016-04-13] MEDS: CHOLESTYRAMINE 4 GM PWD PKT PO SCH ×2 (09:28→18:17)
[2016-04-13] MEDS: LevoFLOXacin IV 250 MG in APPROPRIATE DILUENT 1 EA IV SCH (12:25)
--- NOTE | 2016-04-13 12:40 | IPNPDOC ---
Text Note Date of Service The patient was seen on 04/13/16. 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 Diff colitis ( currently on vancomycin PO), presented for a fever at home. Patient was recently discharged from the hospital on 03/26 for septic shock / hypovolemic shock of unknown etiology and possible viral infection. She was discharged home and the family noted that on Thursday evening (03/29) she because to have a cough, scratchy through, runny nose and fever. She was taken to [facility], however they are not sure what was recommended. She was not admitted at that time. Patient was seen and examined at the bedside. Patient has been saturating well on room air. No acute events. Objective: Vitals (See below) General: Lying in bed, no acute distress, asleep, oriented x 0 HEENT: NC, AT CVS: RRR, +S1S2 Lungs: Fair air entry b/l, + rhonchi bilaterally Abdomen: Soft, ND, NT, +BSx4 Extremities: - Edema, - Calf tenderness Assessment and plan: 1. Admitted for Fever - likely 2/2 influenza AH3, possible UTI - No change in mental status, breathing appears to be at baseline - No recorded fevers or events overnight, daughter notes that yesterday was un- eventful - Physical reveals scattered rhonchi - Requirements for supplemental oxygen continue to go down; awaiting her to return to room air - Blood cultures negative, Urine cultures - yeast like organisms, C. diff negative - Leukocytosis has been trending up; has normalized --- Repeat UA shows 3+ LE, 20 WBC and 2+ Bacteria - CXR 04/08 - unchanged; will repeat today - s/p Vancomycin and Meropenem and Oseltamivir - c/w Levaquin (Day #3); will change to PO medications and transition the patient home 2. s/p Lactic acidosis - s/p IV fluid hydration 3. C. difficile colitis - Had episodes of multiple frequent bowel movements while inpatient - likely 2/ 2 antibiotic use - repeat stool workup negative for C. Diff - c/w Vancomycin PO taper 4. Dysphagia - currently on thickened liquids and pureed diet - c/w aspiration precautions - recommendation for feeding tube by Speech therapy - Family to hold off on PEG at this point in time 5. 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 Hx of PE - INR of 2.58 - c/w Coumadin at 1 mg daily 7. Asthma, acute exacerbation - c/w breathing treatments - Will discontinue prednisone today 8. Alzheimer 9. Hypothyroidism - c/w levothyroxine 10. Seizure disorder - c/w lacosamide 11. 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 DVT prophylaxis - c/w full anticoagulation with Coumadin Disposition: - Healthcare proxy: Chelsea (ER Nurse) [phone] - Oxygen requirement now at baseline - will discharge patient home Code status: - Full code VS,Fishbone, I+O VS, Fishbone, I+O Laboratory Tests 04/13/16 05:40 Calcium Level 8.2 L, Aspartate Amino Transf (AST/SGOT) 14 L, Alanine Aminotransferase (ALT/SGPT) 29, Alkaline Phosphatase 73, Total Bilirubin 0.3, Total Protein 5.4 L, Albumin 2.4 L, Red Blood Count 2.89 L, Mean Corpuscular Volume 93.3, Mean Corpuscular Hemoglobin 30.1, Mean Corpuscular Hemoglobin Concent 32.3, Red Cell Distribution Width 14.8 H, Neutrophils (%) (Auto) 75.7 H , Lymphocytes (%) (Auto) 16.9 L, Monocytes (%) (Auto) 4.9, Eosinophils (%) (Auto ) 1.4, Basophils (%) (Auto) 0.2, Neutrophils # (Auto) 7.6, Lymphocytes # (Auto) 1.8, Monocytes # (Auto) 0.5, Eosinophils # (Auto) 0.1, Basophils # (Auto) 0.0 Vital Signs Date Time Temp Pulse Resp B/P Pulse Ox O2 Delivery O2 Flow Rate FiO2 04/13/16 11:34 97.8 04/13/16 10:31 Room Air 04/13/16 06:10 78 17 125/50 98 2.0 04/07/16 23:00 35 I&O- Last 24 Hours up to 6 AM 04/13/16 06:00 Intake Total 1910 ml Output Total 0 ml Balance 1910 ml ROME SOLANO MD Apr 13, 2016 12:40
[2016-04-13] MEDS ORDERED: WARF4TAB52 PO (12:44)
[2016-04-13] MEDS ORDERED: LEVA250T PO (12:44)
[2016-04-13 14:00] VITALS: BP 149/66
[2016-04-13 14:28] VITALS: O2SAT 94
[2016-04-13] MEDS ORDERED: WARFARIN SOD 1 MG TAB PO SCH (17:00)
[2016-04-13] MEDS: MIRTAZAPINE 15 MG TAB PO SCH (21:53)
[2016-04-13 22:00] VITALS: BP 128/58
[2016-04-14] MEDS: IPRATROPIUM 0.5MG/ALBUTEROL 2.5MG INH SOL UD 3ML (DUONEB)(J7620) NEB SCH ×2 (01:44→08:10)
[2016-04-14] MEDS: SLF 3 ML SYR IV SCH (05:04)
[2016-04-14 06:00] VITALS: BP 101/55
[2016-04-14] MEDS: LEVOTHYROXINE 0.075 MG TAB (75 MCG) PO SCH (06:06)
[2016-04-14 06:10] LABS: BASO % 0.2 % (0.0-1.0); EOS # 0.4 K/mm3 (0.0-0.50); EOS % 3.4 % (0.0-3.0); LARGE UNSTAINED CELL # 0.1 K/mm3 (0.0-0.4); LARGE UNSTAINED CELL % 0.8 % (0.0-4.0); LYMPH # 1.8 K/mm3 (1.5-4.5); MEAN CORPUSCULAR HEMOGLOBIN 30.1 pg (27.0-33.0); MEAN CORPUSCULAR HGB CONC 32.3 g/dl (32.0-36.5); MEAN CORPUSCULAR VOLUME 93.3 fl (80.0-96.0); MONO # 0.5 K/mm3 (0.0-0.8); MONO % 4.7 % (0.0-5.0); NEUTROPHILS # 8.8 K/mm3 (1.8-7.7); NEUTROPHILS % 75.8 % (36.0-66.0); PLATELET COUNT, AUTOMATED 290 k/mm3 (150-450); RED CELL DISTRIBUTION WIDTH 14.7 % (11.5-14.5); WHITE BLOOD COUNT 11.5 K/mm3 (4.0-10.0)
[2016-04-14 06:16] LABS: INR 1.88
[2016-04-14 06:31] LABS: ALBUMIN 2.5 GM/DL (3.2-5.2); ALBUMIN/GLOBULIN RATIO 0.81 (1.00-1.93); BILIRUBIN,TOTAL 0.3 MG/DL (0.2-1.0); CALCIUM LEVEL 8.1 MG/DL (8.8-10.2); CREATININE FOR GFR 1.11 MG/DL (0.55-1.02); GLOMERULAR FILTRATION RATE 49.4 (>32); MAGNESIUM LEVEL 1.9 MG/DL (1.8-2.4); POTASSIUM SERUM 4.5 MEQ/L (3.5-5.1); TOTAL PROTEIN 5.6 GM/DL (6.4-8.2)
[2016-04-14] MEDS ORDERED: WARF4TAB52 PO (07:15)
[2016-04-14] MEDS ORDERED: IPRASOL4 IN (07:52)
[2016-04-14] MEDS: NYSTATIN 500,000 U/5 ML SUSP UDC SS SCH (10:13)
[2016-04-14] MEDS: CHOLESTYRAMINE 4 GM PWD PKT PO SCH (10:13)
[2016-04-14] MEDS: VANCOMYCIN ORAL SOL 250MG/5ML ORAL SYRINGE PO SCH (10:14)
[2016-04-14] MEDS: LACOSAMIDE 50 MG TAB (VIMPAT) PO SCH (10:15)
[2016-04-14] MEDS: LACTOBACILLUS ACIDOPHILUS CAP (BACID) PO SCH (10:15)
[2016-04-14] MEDS: ALPRAZolam 0.25 MG TAB PO PRN (10:15)
--- NOTE | 2016-04-14 14:58 | DSES ---
DATE OF ADMISSION: 03/31/2016 DATE OF DISCHARGE: 04/14/2016 ATTENDING PHYSICIAN: Dr. Cedric Cisneros and Dr. Agata Carl DICTATING PHYSICIAN: Dr. Cedric Cisneros PRIMARY CARE PROVIDER: Dr. Josef Calderon CONSULTING PHYSICIANS: None. CONDITION ON DISCHARGE: Stable. FINAL DIAGNOSIS: Fever, possibly secondary to influenza, possibly secondary to urinary tract infection (UTI). PROCEDURES: None. HISTORY OF PRESENT ILLNESS: The patient is an 89-year-old female with a past medical history of asthma, Alzheimer's dementia, CVA, deep vein thrombosis (DVT) and pulmonary embolism on Coumadin, hypothyroidism, seizure disorder, oxygen requirement with sleep and recent history of Clostridium (C.) difficile colitis, currently on vancomycin orally, who presented for a fever at home. The patient was recently discharged from the hospital on 03/26/2016 for septic shock , hypovolemic shock of unknown etiology, and possible viral infection. She was discharged home. The family noted that on Thursday evening, 03/29/2016, she began to have cough, scratchy throat, runny nose, and fever. She was taken to [facility]; however, they were not sure what was recommended and she was not admitted at that time. HOSPITAL COURSE: The patient was admitted for fever, likely secondary to influenza AH3, possible urinary tract infection (UTI). There was no change in her mental status. Breathing and mental status appear to be at baseline. Throughout the hospital course, the patient required oxygen supplementation, but has gone down throughout her hospital course. There has been no recorded fevers throughout her hospital course. Blood cultures were negative. Urine cultures were positive for yeast-like organisms. Clostridium (C.) difficile has remained negative. Leukocytosis had been trending up but has normalized. Urinalysis was consistent with 3+ leukocyte esterase, 20 WBC and 2+ bacteria. Initially, the patient was put on vancomycin and meropenem and, but has been discontinued. Later in the hospital course was started on Levaquin because of a urinary tract infection. She is being discharged home with Levaquin for completion of five days. 2. Status post lactic acidosis. She has been receiving IV hydration. 3. C difficile colitis. Had episodes of multiple frequent bowel movements, likely secondary to antibiotic use. Repeat stool workup is negative for C difficile. Continue with vancomycin oral taper. 4. Dysphagia, currently on thickened liquids and pureed diet. Continue with aspiration precautions. There were discussions for possible percutaneous endoscopic gastrostomy tube with the family; however, they have refused. 5. History of CVA with chronic contractures requiring 24/7 total care at home. 6. History of pulmonary embolism, INR of 2.58. She has been put on Coumadin and as an outpatient she has been discharged home with Coumadin 2 mg to taken daily. 7. Asthma, acute exacerbation. Continue with breathing treatments. She was put on prednisone taper and she has completed a course while she was inpatient. 8. Alzheimer's dementia. 9. Hypothyroidism. Continue with levothyroxine. 10. Seizure. Continue with lacosamide. 11. 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 12. Deep vein thrombosis (DVT) prophylaxis. Continue with full anticoagulation with Coumadin. The patient is being discharged home with followup with her primary care provider, Dr. Josef Calderon. Advised to remain compliant with treatment plan and medications. Return to the emergency room if she experiences any problems. DISCHARGE MEDICATIONS: The patient is being discharged home on the following medication list: - alprazolam one to two tablets every four hours - cholestyramine 4 grams by mouth twice a day - lacosamide 100 mg by mouth twice a day - lactobacillus one tablet by mouth twice a day - levothyroxine 75 mcg by mouth daily - mirtazapine 45 mg by mouth at night - vancomycin 125 mg by mouth as directed Medication that was changed include: - warfarin to 2 mg by mouth daily New medications prescribed include: - Levaquin 250 mg by mouth daily - albuterol/ipratropium inhaled every 4 hours as needed for shortness of breath Time spent on discharge: 35 minutes. MTDD
[2016-04-19] MEDS ORDERED: VANCOMYCIN ORAL SOL 250MG/5ML ORAL SYRINGE PO SCH (09:00)
== END 2016-04-14 11:58 | disposition home or self-care (01) | DRG 871 ==
LOC: M ED 13:26 → M ED INP 18:05 → M ICU 20:49 → M MSPAV 04-01 16:18
PROVIDERS: ADMIT Internal Medicine; ATTEND Internal Medicine
DX: A41.9 Sepsis, unspecified organism (principal); R53.2 Functional quadriplegia; J96.01 Acute respiratory failure with hypoxia; R65.21 Severe sepsis with septic shock; N17.9 Acute kidney failure, unspecified; A04.7 Enterocolitis due to Clostridium difficile; B37.0 Candidal stomatitis; J45.901 Unspecified asthma with (acute) exacerbation; J10.1 Influenza due to other identified influenza virus with other respiratory manifestations; G30.9 Alzheimer's disease, unspecified; F02.80 Dementia in other diseases classified elsewhere, unspecified severity, without behavioral disturbance, psychotic disturbance, mood disturbance, and anxiety; Z79.01 Long term (current) use of anticoagulants; E03.9 Hypothyroidism, unspecified; G40.909 Epilepsy, unspecified, not intractable, without status epilepticus; Z86.711 Personal history of pulmonary embolism; Z86.73 Personal history of transient ischemic attack (TIA), and cerebral infarction without residual deficits; Z86.718 Personal history of other venous thrombosis and embolism; Z79.899 Other long term (current) drug therapy; N18.3 Chronic kidney disease, stage 3 (moderate); F41.9 Anxiety disorder, unspecified; D50.9 Iron deficiency anemia, unspecified; Z88.0 Allergy status to penicillin; Z88.8 Allergy status to other drugs, medicaments and biological substances; Z91.018 Allergy to other foods

== ENCOUNTER 2016-04-22 08:57 | Observation (INO) | payer MEDICARE, MEDICAID ==
[~2016-04-22] VITALS: Ht 152.4 cm; Wt 55.0 kg
[~2016-04-22 08:57] MED LIST changes: +BACITAB3 PO; +IPRASOL4 IN; +LEVA250T PO; +QUES4POW PO; +VANC125C2 PO
[2016-04-22] MEDS ORDERED: LACOSAMIDE 50 MG TAB (VIMPAT) PO SCH (09:00)
[2016-04-22] MEDS ORDERED: NS 1,000 ML IV SCH (09:35)
[2016-04-22 09:58] LABS: BASO % 0.1 % (0.0-1.0); EOS # 0.3 K/mm3 (0.0-0.50); EOS % 1.9 % (0.0-3.0); LARGE UNSTAINED CELL # 0.2 K/mm3 (0.0-0.4); LARGE UNSTAINED CELL % 1.1 % (0.0-4.0); LYMPH # 0.8 K/mm3 (1.5-4.5); LYMPH % 5.3 % (24.0-44.0); MEAN CORPUSCULAR HEMOGLOBIN 29.6 pg (27.0-33.0); MEAN CORPUSCULAR HGB CONC 31.8 g/dl (32.0-36.5); MEAN CORPUSCULAR VOLUME 93.2 fl (80.0-96.0); MONO # 0.3 K/mm3 (0.0-0.8); MONO % 2.3 % (0.0-5.0); NEUTROPHILS # 12.5 K/mm3 (1.8-7.7); NEUTROPHILS % 89.2 % (36.0-66.0); PLATELET COUNT, AUTOMATED 310 k/mm3 (150-450); RED CELL DISTRIBUTION WIDTH 14.4 % (11.5-14.5)
--- NOTE | 2016-04-22 10:02 | REP ---
Portable chest x-ray: Single view. History: Sepsis, shock. Comparison study April 21, 2016. Findings: Cardiomegaly is observed. Patient is rotated somewhat to the right for the current exposure. No definite infiltrate is seen in the lung holguin. The aorta is tortuous. No acute bony abnormality is seen. The patient appears to be status post vertebroplasty in the lower thoracic and upper lumbar spine. Some vascular calcification is observed. Impression: Cardiomegaly. No acute infiltrate. Signed by Sabino Greco MD 04/22/2016 01:58 P
[2016-04-22 10:05] LABS: INR 2.39
[2016-04-22 10:16] LABS: ABG BASE EXCESS -0.5 (-2.0-2.0); ABG HCO3 23.5 MEQ/L (22.0-26.0); ABG PARTIAL PRESSURE O2 68.6 mmHg (75.0-100.0); ABG TOTAL CO2 24.6 MEQ/L (23.0-31.0); ABG pH (ARTERIAL) 7.432 UNITS (7.350-7.450)
[2016-04-22 10:18] LABS: ALBUMIN 2.8 GM/DL (3.2-5.2); ALBUMIN/GLOBULIN RATIO 0.68 (1.00-1.93); ALKALINE PHOSPHATASE 87 U/L (45-117); ALT/SGPT 16 U/L (12-78); AMYLASE 54 U/L (25-115); ANION GAP 6 MEQ/L (8-16); AST/SGOT 13 U/L (15-37); BILIRUBIN,DIRECT < 0.1 MG/DL (0.0-0.2); BILIRUBIN,TOTAL 0.4 MG/DL (0.2-1.0); BLOOD UREA NITROGEN 15 MG/DL (7-18); CALCIUM LEVEL 8.3 MG/DL (8.8-10.2); CARBON DIOXIDE LEVEL 26 MEQ/L (21-32); CHLORIDE LEVEL 108 MEQ/L (98-107); CREATININE FOR GFR 1.16 MG/DL (0.55-1.02); GLOMERULAR FILTRATION RATE 46.9 (>32); GLUCOSE, FASTING 107 MG/DL (83-110); POTASSIUM SERUM 4.2 MEQ/L (3.5-5.1); SODIUM LEVEL 140 MEQ/L (136-145); TOTAL PROTEIN 6.9 GM/DL (6.4-8.2)
[2016-04-22] MEDS ORDERED: IPRASOL4 INH (11:45)
[2016-04-22] MEDS ORDERED: WARF-18 PO (11:45)
[2016-04-22] MEDS ORDERED: IPRATROPIUM 0.5MG/ALBUTEROL 2.5MG INH SOL UD 3ML (DUONEB)(J7620) NEB PRN (12:00)
[2016-04-22] MEDS ORDERED: ACETAMINOPHEN TAB 650MG DOSE (2X325MG) PO PRN (12:00)
[2016-04-22] MEDS ORDERED: ONDANSETRON 4MG/2ML VIAL (J2405) IV PRN (12:00)
[2016-04-22 12:20] VITALS: BP 82/43
[2016-04-22 14:00] VITALS: BP 124/68
[2016-04-22] MEDS: NS 1,000 ML IV SCH ×2 (14:00→23:35)
[2016-04-22] MEDS: LEVOTHYROXINE 0.075 MG TAB (75 MCG) PO SCH (14:20)
[2016-04-22] MEDS: IPRATROPIUM 0.5MG/ALBUTEROL 2.5MG INH SOL UD 3ML (DUONEB)(J7620) NEB SCH ×2 (16:13→23:22)
--- NOTE | 2016-04-22 16:22 | HPE ---
DATE OF ADMISSION: 04/22/2016 PRIMARY CARE PROVIDER: Dr. Josef Calderon CHIEF COMPLAINT: Febrile illness. HISTORY OF PRESENT ILLNESS: Ms. Tovar is an 89-year-old female that lives at home with her daughter, recently treated and discharged from [facility] on 04/14/2016 for urinary tract infection and Clostridium (C) difficile colitis. She is currently on a vancomycin taper which she is to start within the next couple days of taking vancomycin every other day. The daughter, who is present, did notice that she has had increasing fatigue, lethargy, and subjective fevers throughout the day yesterday with a maximum temperature (T-max) of 101.4. She has had a nonproductive cough. She is difficult to get a meaningful history from due to her advance Alzheimer's dementia. However, the family was concerned because she continued to have spiking fevers and discussed with the emergency room (ER) physician that they did not feel that she was able to return home at this point due to her continued illness. She does not appear to be in any shock. Her lactic acid in the emergency department was noted to be 1.6 and she is hemodynamically stable. However, the hospitalist was called for admission due to her continued febrile illness. She continues with loose stool per her daughter. The remainder of the history and physical was garnished from the patient's daughter and her electronic medical record. PAST MEDICAL HISTORY: 1. Asthma. 2. Alzheimer's dementia. 3. Cerebrovascular accident (CVA). 4. Deep vein thrombosis (DVT). 5. Pulmonary embolism (PE). 6. Hypothyroidism. 7. Seizure disorder. 8. Oxygen required with sleep. 9. History of Clostridium difficile colitis, currently on vancomycin taper. PAST SURGICAL HISTORY: Cholecystectomy and back surgery. FAMILY HISTORY: Noncontributory due to advanced age. SOCIAL HISTORY: There is no history of tobacco use currently and no alcohol use. No recent travel. No sick contacts. She lives with her daughter. ALLERGIES: PENCILLIN, METRONIDAZOLE, FLUCONAZOLE, PINEAPPLE, ERYTHROMYCIN, ASPIRIN, and NONSTEROIDAL ANTIINFLAMMATORY DRUGS (NSAIDS). CURRENT MEDICATIONS: - vancomycin taper - alprazolam 1-2 tablets every four hours as needed - cholestyramine 4 grams by mouth daily - lacosamide 100 mg twice a day - lactobacillus one tablet twice a day - Synthroid 75 mcg daily - mirtazapine 45 mg at night - Vancomycin 125 mg tapering dose - Coumadin 2.5 mg daily on Thursday, Thursday, Thursday skip a dose on Thursday and then , Thursday, Thursday REVIEW OF SYSTEMS: Difficult to ascertain due to advanced dementia. PHYSICAL EXAMINATION: VITAL SIGNS: Temperature is 96.7, pulse 83 and regular, respiratory rate is 20, blood pressure 123/61, SPO2 is 98% on four liters. GENERAL: The patient appears to be in no acute distress. She is alert and oriented. HEENT: Head is atraumatic, normocephalic. Eyes: Pupils are equal, round, and reactive to light and accommodation. Throat is clear. LUNGS: Diminished bibasilar breath sounds, otherwise clear. HEART: Regular rate and rhythm. ABDOMEN: Normoactive bowel sounds. No masses. No rebound. EXTREMITIES: No edema. No calf tenderness. LABORATORY DATA: White count is 14,000, hemoglobin 10.2, and platelets are 310,000. Sodium 140, potassium 4.2, chloride 108, bicarbonate 26, anion gap 6, BUN is 15, creatinine 1.16, glucose 107, lactic acid 1.6, calcium 8.3, total bilirubin 0.4, direct bilirubin less than 0.1, AST is 13, ALT 16, alkaline phosphatase 87, CK is 30, CK-MB is 1.0, troponin is less than 0.02, CRP is 6.26, albumin is 2.8, INR 2.39 and appears to be therapeutic. Blood gas shows a pH of 7.432, pCO2 is 36. Influenza A and B are negative. Blood cultures positive times two. Urine culture is pending. Chest x-ray shows cardiomegaly with no acute infiltrate. GI panel is pending. IMPRESSION: Ms. Tovar is an 89-year-old female with advanced dementia and other comorbidities as outlined above, returns to the emergency department due to the family concern of her spiking a temperature of 101.4 at home. She is currently on a tapering dose of vancomycin due to her Clostridium (C) difficile colitis, recently been treated for influenza with Tamiflu. She does not have any gross respiratory issues, but does continue to have loose stool and diarrhea. We will check a gastrointestinal (GI) panel on her. PROBLEM LIST: 1. Febrile illness. 2. Loose stool with Clostridium difficile colitis. 3. Dysphagia. Continue with thickened liquids and pureed diet. 4. History of cerebrovascular accident (CVA) with chronic contractures requiring 24-hour total home care. 5. Prior history of pulmonary embolism with international normalized ratio (INR) therapeutic. Continue on Coumadin. 6. Asthma, stable. 7. Alzheimer's dementia, advanced. 8. Hypothyroidism, on Synthroid. 10. Seizure disorder, on Keppra. 11. 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 12. Deep vein thrombosis (DVT) prophylaxis with anticoagulation therapy. PLAN: The patient will be admitted to medical/surgical floor. We will continue with some gentle IV fluids. Continue with diet. Medications as outlined above. I would like to check a GI panel. We have been seeing a lot of norovirus and other GI viruses that this may be attributed to. At any rate, we will continue on the current dosing of vancomycin. Blood cultures are pending. The patient does continue to be quite ill with her advanced dementia and other diseases. We have had discussions with the family members regarding advance directives as well. DISPOSITION: We will see how she does overnight. My concern is that she is older, she is frail, and she is having issues now with recurrent infections. I have expressed this to the family and will reevaluate in the morning.
[2016-04-22] MEDS ORDERED: WARFARIN SOD 2.5 MG TAB PO SCH (17:00)
[2016-04-22] MEDS: ALPRAZolam 0.25 MG TAB PO SCH ×2 (17:00→18:03)
[2016-04-22] MEDS ORDERED: ALPRAZolam 0.25 MG TAB PO SCH (17:00)
[2016-04-22] MEDS ORDERED: VANCOMYCIN ORAL SOL 250MG/5ML ORAL SYRINGE PO SCH (18:00)
[2016-04-22] MEDS: LACOSAMIDE 50 MG TAB (VIMPAT) PO SCH (21:27)
[2016-04-22] MEDS: MIRTAZAPINE 15 MG TAB PO SCH (21:27)
[2016-04-22] MEDS: LACTOBACILLUS ACIDOPHILUS CAP (BACID) PO SCH (21:27)
[2016-04-22 22:00] VITALS: BP 123/58
[2016-04-23] MEDS: LEVOTHYROXINE 0.075 MG TAB (75 MCG) PO SCH (06:02)
[2016-04-23 07:59] LABS: MEAN CORPUSCULAR HEMOGLOBIN 29.8 pg (27.0-33.0); MEAN CORPUSCULAR HGB CONC 32.2 g/dl (32.0-36.5); MEAN CORPUSCULAR VOLUME 92.8 fl (80.0-96.0); RED CELL DISTRIBUTION WIDTH 14.7 % (11.5-14.5); WHITE BLOOD COUNT 7.3 K/mm3 (4.0-10.0)
[2016-04-23 08:18] LABS: ANION GAP 7 MEQ/L (8-16); BLOOD UREA NITROGEN 13 MG/DL (7-18); CALCIUM LEVEL 7.5 MG/DL (8.8-10.2); CARBON DIOXIDE LEVEL 26 MEQ/L (21-32); CHLORIDE LEVEL 113 MEQ/L (98-107); CREATININE FOR GFR 0.91 MG/DL (0.55-1.02); GLOMERULAR FILTRATION RATE > 60.0 (>32); GLUCOSE, FASTING 95 MG/DL (83-110); POTASSIUM SERUM 4.3 MEQ/L (3.5-5.1); SODIUM LEVEL 146 MEQ/L (136-145)
[2016-04-23] MEDS: IPRATROPIUM 0.5MG/ALBUTEROL 2.5MG INH SOL UD 3ML (DUONEB)(J7620) NEB SCH ×3 (08:21→23:06)
[2016-04-23] MEDS ORDERED: VANCOMYCIN ORAL SOL 250MG/5ML ORAL SYRINGE PO SCH (09:00)
[2016-04-23] MEDS: LACOSAMIDE 50 MG TAB (VIMPAT) PO SCH ×2 (09:10→20:53)
[2016-04-23] MEDS: LACTOBACILLUS ACIDOPHILUS CAP (BACID) PO SCH ×2 (09:10→20:53)
[2016-04-23] MEDS: ALPRAZolam 0.25 MG TAB PO SCH ×4 (09:10→19:05)
--- NOTE | 2016-04-23 10:25 | ECGEPIP ---
Stationary ECG Study [facility] - ED Test Date: 2016-04-22 Pat Name: KYARA POLK Department: Room: - Gender: F Pattern Filer: rebekah : [id number] Requested By: Francisca Marks Order Number: [id number] Reading MD: Leland Serna Measurements Intervals Grants Rate: 84 P: 34 MT: 180 QRS: 42 QRSD: 85 T: 113 QT: 359 QTc: 426 Interpretive Statements SINUS RHYTHM MODERATE T-WAVE ABNORMALITY, CONSIDER ANTERIOR ISCHEMIA SIMILAR TO 03/31/16 Electronically Signed On 04-23-2016 10:25:19 EST by Leland Serna
--- NOTE | 2016-04-23 14:34 | IPN ---
DATE: 04/23/2016 89-year-old female seen at bedside. No overnight issues reported. She appears to be resting comfortably and family is present at bedside. She continues to be pleasantly demented. OBJECTIVE: Temperature is 98, pulse 88, respiratory rate 18, blood pressure 123/58, SpO2 is 97% on room air. GENERAL: The patient appears to be in no acute distress. HEENT: Unremarkable. LUNGS: Clear. HEART: Regular rate and rhythm. ABDOMEN: Soft. EXTREMITIES: No edema. No calf tenderness. LABORATORY DATA: White count 7.3, hemoglobin 8, platelets 294,000, sodium 146, potassium 4.3, chloride 113, bicarb 26, anion gap 7, BUN 13, creatinine 0.91, glucose is 95, calcium 7.5, INR 2.39. ASSESSMENT/PLAN: 1. Febrile illness which has resolved. Her leukocytosis is resolved as well. She did receive some fluids yesterday. 2. Loose stool with history of C. difficile colitis. Repeat GI profile was negative. Did give some reassurance to the family that I did not see any acute illnesses. However, due to the C. difficile she should finish her pulse therapy of vancomycin. 3. Dysphasia. Continue with thickened liquids and pureed diet. 4. CVA by history with chronic contractures requiring 24-hour home care. 5. Prior history of pulmonary embolism with INR therapeutic. Continue on current dose of Coumadin. 6. Asthma, stable. 7. Advance Alzheimer's dementia, stable. 8. History of hypothyroidism. Continue on Synthroid. 9. History of seizure disorder. Continue Keppra. 10. 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 11. Deep vein thrombosis (DVT) prophylaxis. Anticoagulated appropriately with Coumadin. DISPOSITION: Anticipate home discharge in the next 24 hours and should keep regular followup as an outpatient.
[2016-04-23] MEDS: MIRTAZAPINE 15 MG TAB PO SCH (20:53)
[2016-04-23] MEDS: NS 1,000 ML IV SCH (21:10)
[2016-04-23 23:08] VITALS: O2SAT 96
[2016-04-24 05:31] LABS: CALCIUM LEVEL 7.5 MG/DL (8.8-10.2); CREATININE FOR GFR 1.1 MG/DL (0.55-1.02); GLOMERULAR FILTRATION RATE 49.9 (>32); POTASSIUM SERUM 4.2 MEQ/L (3.5-5.1)
[2016-04-24] MEDS: LEVOTHYROXINE 0.075 MG TAB (75 MCG) PO SCH (05:38)
[2016-04-24 05:42] LABS: MEAN CORPUSCULAR HEMOGLOBIN 29.6 pg (27.0-33.0); MEAN CORPUSCULAR HGB CONC 31.7 g/dl (32.0-36.5); MEAN CORPUSCULAR VOLUME 93.3 fl (80.0-96.0); RED CELL DISTRIBUTION WIDTH 14.7 % (11.5-14.5); WHITE BLOOD COUNT 6.7 K/mm3 (4.0-10.0)
[2016-04-24 06:00] VITALS: BP 117/56
[2016-04-24] MEDS ORDERED: PREN0.01 PO (07:51)
[2016-04-24] MEDS: IPRATROPIUM 0.5MG/ALBUTEROL 2.5MG INH SOL UD 3ML (DUONEB)(J7620) NEB SCH (08:02)
[2016-04-24] MEDS: ALPRAZolam 0.25 MG TAB PO SCH (09:25)
[2016-04-24] MEDS: LACTOBACILLUS ACIDOPHILUS CAP (BACID) PO SCH (09:25)
[2016-04-24] MEDS: LACOSAMIDE 50 MG TAB (VIMPAT) PO SCH (09:25)
[2016-04-24 13:19] LABS: INR 2.72
--- NOTE | 2016-04-24 15:37 | DSES ---
DATE OF ADMISSION: 04/22/2016 DATE OF DISCHARGE: 04/24/2016 PRIMARY CARE PROVIDER: Josef Calderon MD CONSULTATIONS: None. PROCEDURES: None. COMPLICATIONS: None. ADMISSION/DISCHARGE DIAGNOSES: 1. Febrile illness which has since resolved. 2. Loose stool with recent history of C. difficile and currently on vancomycin pulse therapy. 3. Dysphasia on thickened liquids, pureed diet. 4. Cerebrovascular accident (CVA) in the past with ongoing chronic contractures requiring 24-hour home care. 5. Prior history of pulmonary embolism with therapeutic INR. 6. Asthma. 7. Advanced Alzheimer's dementia. 8. Hypothyroidism. 9. Seizure disorder. 10. 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 BRIEF HOSPITAL COURSE: The patient is admitted on 04/22/2016 due to daughter's concern with febrile illness, some mild increase in her creatinine, ongoing loose stool. She did have a drop her hemoglobin and hematocrit prior to discharge with a hemoglobin of 7.8. Given her chronic comorbidities and advanced age we did have a discussion before discharge with the patient's daughter regarding whether or not we should transfuse a unit of blood. Since she is the healthcare proxy she did decide that we will go ahead and do so. Most likely this anemia, however is secondary to hemodilution due to the IV fluids, gentle hydration we had given her and she is not demonstrating any signs of bleeding or bruising issues. No blood in her stools has been noted and her INR has been therapeutic during the hospitalization. For further information regarding intake, physical, labs and diagnostics please refer to the HPI. PHYSICAL EXAMINATION: Temperature is 96, pulse 77, respiratory rate 18, BP 117/56, SPO2 100% on room air. General: The patient appears to be in no acute distress. She is confused, pleasant. HEENT: Unremarkable. Lungs: Clear. Heart: Regular rhythm. Abdomen: Soft. Extremities: No edema or calf tenderness. LABORATORY DATA: White count 6.7, hemoglobin 7.8, platelets 284. Sodium 147, potassium 4.2, chloride 114, bicarb 26, anion gap 6, BUN is 10, creatinine 1.10, glucose is 91, INR is 2.72. Blood cultures remain negative. GI panel is negative. Influenza A and B is negative. DISCHARGE CONDITION: Good. DISPOSITION: Discharged to home. DISCHARGE MEDICATIONS: - multivitamin with folic acid daily - Albuterol inhaler as directed - Xanax 0.25 mg 1-2 tablets every 4 hours as needed (p.r.n.) - Vimpat 100 mg twice a day - Bacid 1 tablet twice a day - Synthroid 75 mcg daily - Mirtazapine 45 mg nightly - vancomycin 125 mg as directed to finish pulsed therapy. - Coumadin 2.5 mg tablets 6 days a week DISCHARGE INSTRUCTIONS: Discharged home. Activity as tolerated. Pureed honey thickened diet. Follow up with Dr. Calderon in a week. Return to emergency department or seek medical attention by her primary care provider if symptoms worsen or progress.
== END 2016-04-24 14:10 | disposition home or self-care (01) ==
LOC: M ED 08:57 → M ED INP 11:50 → M MSPAV 13:50
PROVIDERS: ADMIT Hospitalist; ATTEND Hospitalist
DX: R50.9 Fever, unspecified (principal); R19.7 Diarrhea, unspecified; Z79.2 Long term (current) use of antibiotics; Z86.73 Personal history of transient ischemic attack (TIA), and cerebral infarction without residual deficits; Z79.01 Long term (current) use of anticoagulants; G30.9 Alzheimer's disease, unspecified; F02.80 Dementia in other diseases classified elsewhere, unspecified severity, without behavioral disturbance, psychotic disturbance, mood disturbance, and anxiety; Z79.899 Other long term (current) drug therapy; J45.909 Unspecified asthma, uncomplicated; E03.9 Hypothyroidism, unspecified; R53.2 Functional quadriplegia; Z88.0 Allergy status to penicillin; Z88.8 Allergy status to other drugs, medicaments and biological substances
CPT/HCPCS: 36415; 36600; 71010; 80048; 80076; 81001; 82150; 82550; 82553; 82803; 83605; 84484; 85025; 85027; 85610; 85730; 86140; 86850; 86900; 86901; 86920; 87040; 87086; 87507; 87804; 93005; 93041; 94640; 94760; 99285; G0378; P9016; P9612

== ENCOUNTER 2016-04-27 01:03 | Inpatient (IN) | payer MEDICARE, MEDICAID ==
[~2016-04-27] VITALS: Ht 152.4 cm; Wt 51.3 kg
[~2016-04-27 01:03] MED LIST changes: +IPRASOL4 INH; +PREN0.01 PO; +UNRESOLVED CLARIFICATION ENTRY XX SCH
[2016-04-27] MEDS ORDERED: ALBU83IN INH (01:35)
[2016-04-27 02:54] LABS: BASO % 0.2 % (0.0-1.0); EOS # 0.5 K/mm3 (0.0-0.50); EOS % 4.3 % (0.0-3.0); LARGE UNSTAINED CELL # 0.2 K/mm3 (0.0-0.4); LYMPH # 0.8 K/mm3 (1.5-4.5); MEAN CORPUSCULAR HEMOGLOBIN 29.5 pg (27.0-33.0); MEAN CORPUSCULAR HGB CONC 32.3 g/dl (32.0-36.5); MEAN CORPUSCULAR VOLUME 91.1 fl (80.0-96.0); MONO # 0.4 K/mm3 (0.0-0.8); MONO % 3.3 % (0.0-5.0); NEUTROPHILS % 83.2 % (36.0-66.0); PLATELET COUNT, AUTOMATED 313 k/mm3 (150-450); RED CELL DISTRIBUTION WIDTH 14.8 % (11.5-14.5); WHITE BLOOD COUNT 10.8 K/mm3 (4.0-10.0)
[2016-04-27 03:14] LABS: ALBUMIN 2.8 GM/DL (3.2-5.2); ALBUMIN/GLOBULIN RATIO 0.78 (1.00-1.93); ALKALINE PHOSPHATASE 102 U/L (45-117); ALT/SGPT 14 U/L (12-78); ANION GAP 10 MEQ/L (8-16); AST/SGOT 16 U/L (15-37); BILIRUBIN,DIRECT < 0.1 MG/DL (0.0-0.2); BILIRUBIN,TOTAL 0.3 MG/DL (0.2-1.0); BLOOD UREA NITROGEN 14 MG/DL (7-18); CALCIUM LEVEL 8.2 MG/DL (8.8-10.2); CARBON DIOXIDE LEVEL 26 MEQ/L (21-32); CHLORIDE LEVEL 105 MEQ/L (98-107); CREATININE FOR GFR 0.95 MG/DL (0.55-1.02); GLOMERULAR FILTRATION RATE 59.1 (>32); GLUCOSE, FASTING 130 MG/DL (83-110); POTASSIUM SERUM 4.4 MEQ/L (3.5-5.1); SODIUM LEVEL 141 MEQ/L (136-145); TOTAL PROTEIN 6.4 GM/DL (6.4-8.2)
[2016-04-27 03:59] LABS: T UPTAKE 39 % (30-39); THYROXINE (T4) 11.4 UG/DL (4.5-12.0)
[2016-04-27] MEDS ORDERED: IMIPENEM/CILASTATIN 250 MG in D5W MINI-BAG PLUS 100 ML IV ONE (04:30)
[2016-04-27] MEDS ORDERED: PREN1TAB11 PO (05:26)
[2016-04-27] MEDS ORDERED: TYLE500T78 PO (05:27)
[2016-04-27 06:00] VITALS: BP 114/85
[2016-04-27] MEDS ORDERED: ALPRAZolam 0.25 MG TAB PO SCH (06:00)
[2016-04-27] MEDS ORDERED: cefTRIAXone SOD 1 GM in D5W MINI-BAG PLUS 50 ML IV SCH (06:00)
[2016-04-27] MEDS ORDERED: ALBUTEROL SULFATE 2.5 MG/0.5 ML INH NEB SOLN INH PRN ×2 (06:00→06:15)
[2016-04-27] MEDS ORDERED: ACETAMINOPHEN 500 MG TAB PO PRN ×2 (06:00→06:15)
[2016-04-27 06:06] LABS: INR 2.14
--- NOTE | 2016-04-27 06:07 | HPEPDOC ---
General Date of Admission Primary Care Physician: Josef Calderon Attending Physician: JUAN MANUEL HOWELL DO Chief Complaint The patient is a 89-year-old female admitted with a reason for visit of FEVER. Source: Family (daughter) Exam Limitations: Dementia History of Present Illness This is a 89-year-old female with a past medical history significant for Alzheimer's dementia, asthma, C. difficile colitis, hypothyroidism, and recurrent urinary tract infections who presents to the emergency department today accompanied by her daughter with complaints of fever. History was provided by the patient's daughter. Patient had a maximum temperature of 100.4 yesterday as measured by her daughter, and had a fever of 101.2 measured at midnight. Daughter reports that she usually has no complaints, but she is more irritable when she is having an infection. Patient was irritable and more upset than usual last night. Patient continues to have loose stools. Is having 5-6 bowel movements a day. Stools are reported to be smelly and brown in coloration. Denies any hematochezia. The daughter recalls that she does not have any urinary complaints, denies seeing hematuria. She has not had any skin changes, no rashes, or skin ulcerations. She has been eating and hydrating as usual. She had approximately 1500 mL of fluid yesterday. Patient was recently admitted on 04/22/2016 through 04/24/2016. At that time, patient was also having fevers and loose stools. During the hospitalization, patient was transfused with a unit of blood because of her drop in hemoglobin. Patient was discharged and continued on her vancomycin course. Patient was to follow up with her PCP, and had not done so. Home Medications Scheduled ( Vitamin 27-0.8 mg) 1 Tab Tab 1 TAB PO DAILY (Reported) New medication; PT has not started first dose. Alprazolam (Xanax) 0.25 Mg Tab 1-2 TABS PO Q4H (Reported) TAKES 0.25MG AT 0900, 1430, 1700, AND 0.5MG AT 1900 Lacosamide (Vimpat) 100 Mg Tab 100 MG PO BID (Reported) 0900, 2000 Lactobacillus Acidophilus (Bacid) 1 Tab Tab 1 TAB PO BID (Reported) Levothyroxine Sodium (Synthroid) 75 Mcg Tab 75 MCG PO DAILY (Reported) Mirtazapine (Mirtazapine) 45 Mg Tab 45 MG PO QHS (Reported) Vancomycin Hcl (Vancomycin HCl) 125 Mg Cap 125 MG PO ASDIRECTED (Reported) TAPERING DOSE, 125MG BID FOR ONE WEEK, 125MG QD FOR ONE WEEK, 125MG Q2DAYS FOR ONE WEEK, THEN 125MG Q3RD DAY FOR ONE WEEK. PT STARTS 125MG ONCE DAILY ON 04/02 Warfarin Sod (Warfarin Sodium) 2.5 Mg Tab 2.5 MG PO 6XWK (Reported) THURSDAY-THURSDAY Scheduled PRN Acetaminophen (Tylenol Extra Strength) 500 Mg Tab 500 MG PO Q4H PRN PRN PAIN / FEVER (Reported) Albuterol Sulfate (Albuterol Sulfate) 2.5 Mg/3 Ml Nebu 2.5 MG INH Q6HP PRN PRN SHORTNESS OF BREATH (Reported) Allergies Coded Allergies: Penicillins (Verified Allergy, Severe, ANAPHYLAXIS w/ PCN; HAS TOLERATED ROCEPHIN in the PAST, 02/12/16) Metronidazole (Verified Allergy, Intermediate, HIVES, 05/29/12) Fluconazole (Verified Allergy, Unknown, 10/20/14) Pineapple (Verified Allergy, Unknown, CANNED ONLY, FRESH IS OK, 05/29/12) Erythromycin (Verified Adverse Reaction, Mild, GASTROINTESTINAL, 05/29/12) Aspirin (Verified Adverse Reaction, Unknown, TOLD TO AVOID DUE TO ASTHMA, 05/29/12) Past Medical History Medical History Asthma Alzheimer's disease Cerebrovascular accident February of 2015 DVT approximately 5 years ago Pulmonary embolism approximately 5 years ago Hypothyroidism Seizure disorder Oxygen therapy with sleep, 2 L at night History of recurrent UTI History of C. difficile colitis, currently on vancomycin. Surgical History Cholecystectomy Kyphoplasty for L1 compression fracture 2008 T12 kyphoplasty 2009 Colonoscopy 05/24/2001 Family History Significant Family History: No pertinent family hx Social History Former smoker, in her 20s. Has not smoked since. Occasional alcohol. No recent travels. Denies any sick contacts. She lives with her daughter. Review of Symptoms Constitutional: Reports: Fever Skin: Denies: Breakdown, Lesions, Rash Pulmonary: Denies: Cough, Dyspnea Gastrointestinal: Reports: Diarrhea, Denies: Hematochezia Genitourinary: Denies: Dysuria, Hematuria Hematologic: Denies: Bleeding Excessively, Bruising Psych: Reports: Other Psych (increased agitation) Other systems Review of systems provided by family, otherwise unable to obtain secondary to her advanced dementia. Physical Examination General Exam: Positive: Other (was sleeping comfortably, was arousable to exam) ENT Exam: Positive: Mucous membr. moist/pink Chest Exam: Positive: Clear to auscultation, Normal air movement Heart Exam: Positive: Normal S1, Normal S2, Rate Normal, Regular Rhythm, Negative: Murmurs, Rubs Abdomen Exam: Positive: BS Hyperactive, Soft, Negative: Tenderness Extremity Exam: Positive: Normal pulses, Negative: Clubbing, Cyanosis, Edema Skin Exam: Positive: Nl turgor and temperature, Negative: Breakdown, Lesion Vital Signs Vital Signs Label Value Date Time Pulse 90 04/27/16 034 Blood Pressure Assessment 117/58 (77) 04/27/16 034 Location Left Arm Source Automatic Cuff (NIBP) O2 sat 94% Item Value Date Time Oxygen Delivery Method Nasal Cannula 04/27/16344 Oxygen Flow Rate 2 L/min 04/27/16344 Laboratory Data Labs 24H Laboratory Tests 2 04/27/16 02:41: Aspartate Amino Transf (AST/SGOT) 16, Alanine Aminotransferase (ALT/SGPT) 14, Alkaline Phosphatase 102, Total Bilirubin 0.3, Direct Bilirubin < 0.1, Albumin 2.8L, Albumin/Globulin Ratio 0.78L, Anion Gap 10, White Blood Count 10.8H, Red Blood Count 3.92L, Hemoglobin 11.5L, Hematocrit 35.7L, Mean Corpuscular Volume 91.1, Mean Corpuscular Hemoglobin 29.5, Mean Corpuscular Hemoglobin Concent 32.3 , Red Cell Distribution Width 14.8H, Platelet Count 313, Neutrophils (%) (Auto) 83.2H, Lymphocytes (%) (Auto) 7.0L, Monocytes (%) (Auto) 3.3, Eosinophils (%) ( Auto) 4.3H, Basophils (%) (Auto) 0.2, Neutrophils # (Auto) 9.0H, Lymphocytes # ( Auto) 0.8L, Monocytes # (Auto) 0.4, Eosinophils # (Auto) 0.5, Basophils # (Auto ) 0.0, Calcium Level 8.2L, Free Thyroxine Index 4.4, Glomerular Filtration Rate 59.1, Large Unclassified Cells # 0.2, Large Unclassified Cells % 2.0, Thyroid Stimulating Hormone (TSH) 0.797, Thyroxine (T4) 11.4, Total Protein 6.4, Triiodothyronine (T3) Uptake 39 04/27/16 02:42: Lactic Acid (Sepsis) 1.9 04/27/16 03:09: Urine Amorphous Sediment SMALLH, Urine Appearance HAZY, Urine Color STRAW, Urine pH 6.0, Urine Specific [place] 1.009, Urine Protein NEGATIVE, Urine Glucose (UA) NEGATIVE, Urine Ketones NEGATIVE, Urine Urobilinogen 0.2, Urine Bilirubin NEGATIVE, Urine Leukocyte Esterase 3+H, Urine Bacteria (Auto) 1+H, Urine Blood NEGATIVE, Urine Calcium Carbonate Cryst(Auto) , Urine Calcium Oxalate Cryst (Auto) , Urine Calcium Phosphate Michelle (Auto) , Urine Cellular Casts , Urine Cystine Crystals , Urine Granular Casts (Auto) , Urine Hyaline Casts (Auto) 0, Urine Leucine Crystals , Urine Mucus (Auto) , Urine Nitrite NEGATIVE, Urine Oval Fat Bodies (Auto) , Urine RBC (Auto) 7H, Urine Renal Epithelial Cells , Urine Sperm (Auto) , Urine Squamous Epithelial Cells 0, Urine Transitional Epithelial Cells , Urine Trichomonas (Auto) , Urine Triple Phosphate Cryst (Auto) , Urine Tyrosine Crystals , Urine Uric Acid Crystals ( Auto) , Urine WBC (Auto) 156H, Urine Waxy Casts (Auto) , Urine Yeast-Like Cells (Auto) CBC/BMP Laboratory Tests 04/27/16 02:41 Red Blood Count 3.92 L, Mean Corpuscular Volume 91.1, Mean Corpuscular Hemoglobin 29.5, Mean Corpuscular Hemoglobin Concent 32.3, Red Cell Distribution Width 14.8 H, Neutrophils (%) (Auto) 83.2 H, Lymphocytes (%) (Auto ) 7.0 L, Monocytes (%) (Auto) 3.3, Eosinophils (%) (Auto) 4.3 H, Basophils (%) ( Auto) 0.2, Neutrophils # (Auto) 9.0 H, Lymphocytes # (Auto) 0.8 L, Monocytes # ( Auto) 0.4, Eosinophils # (Auto) 0.5, Basophils # (Auto) 0.0 Microbiology Microbiology 04/27/16 Blood Culture, Received Pending 04/27/16 Urine Culture, Received Pending Assessment/Plan This is a 89-year-old female being admitted for fevers. Problems (1) Fever Status: Acute Problem Text: We will continue to monitor for fevers. Blood cultures and urine cultures are pending. We will continue with Tylenol for fevers (2) Diarrhea Status: Chronic Problem Text: Patient continues to have loose stools. Will continue patient on Bacid. C. difficile PCR pending. (3) UTI (urinary tract infection) Status: Acute Problem Text: Urine cultures pending. Patient started on IV antibiotics, imipenem/cilastatin. We will continue to monitor for fevers and changes in mentation. (4) Dementia Status: Chronic Problem Text: Patient has advanced dementia. We will continue her on her home psychiatric medications. (5) Anxiety Status: Chronic Problem Text: We will continue patient on home medications. (6) Hypothyroidism Status: Chronic Problem Text: We will continue her on Synthroid (7) Seizure disorder Status: Chronic Problem Text: We will continue patient on her seizure medications, Vimpat. (8) History of deep venous thrombosis or pulmonary embolus Status: Chronic Problem Text: Patient will be continued on Coumadin. Plan / VTE VTE Prophylaxis Ordered?: Yes (continue patient on Coumadin) GME ATTESTATION GME ATTESTATION My preceptor for this patient encounter was physically present in the building during the encounter and was fully available. As needed, all aspects of the patient interview, examination, medical decision making process, and medical care plan development were reviewed and approved by the preceptor. Preceptor is aware and concurs with the plan as stated in the body of this note and will attest to such by his/her cosignature. ELIZABETH HURST DO Apr 27, 2016 05:55
[2016-04-27] MEDS: ALPRAZolam 0.25 MG TAB PO SCH ×3 (08:00→16:00)
[2016-04-27] MEDS ORDERED: LACOSAMIDE 50 MG TAB (VIMPAT) PO SCH (09:00)
[2016-04-27] MEDS ORDERED: LACTOBACILLUS ACIDOPHILUS CAP (BACID) PO SCH (09:00)
[2016-04-27] MEDS ORDERED: LEVOTHYROXINE 0.075 MG TAB (75 MCG) PO SCH (09:00)
[2016-04-27] MEDS ORDERED: WARFARIN SOD 2.5 MG TAB PO SCH (09:00)
[2016-04-27] MEDS: LEVOTHYROXINE 0.075 MG TAB (75 MCG) PO SCH (09:45)
[2016-04-27] MEDS: LACOSAMIDE 50 MG TAB (VIMPAT) PO SCH ×2 (09:45→20:24)
[2016-04-27] MEDS: LACTOBACILLUS ACIDOPHILUS CAP (BACID) PO SCH ×2 (09:46→20:25)
[2016-04-27] MEDS: cefTRIAXone SOD 1 GM in D5W MINI-BAG PLUS 50 ML IV SCH (09:46)
--- NOTE | 2016-04-27 10:24 | REP ---
PORTABLE CHEST: AP portable view of the chest is performed. Comparison made with prior studies, most recently 04/22/2016. There is cardiomegaly with pulmonary venous hypertension. Left basilar infiltrate is noted with a small left effusion. There is a large hiatal hernia. Mediastinal silhouette is unchanged. IMPRESSION: Cardiomegaly. Mild left basilar infiltrate and small left effusion. Signed by Bonifacio Heaton MD 04/27/2016 01:56 P
[2016-04-27 14:00] VITALS: BP 139/64
[2016-04-27] MEDS: ALPRAZolam 0.25 MG TAB PO PRN (17:36)
[2016-04-27] MEDS: MIRTAZAPINE 15 MG TAB PO SCH (20:24)
[2016-04-27] MEDS: WARFARIN SOD 2.5 MG TAB PO SCH (20:25)
[2016-04-27] MEDS ORDERED: MIRTAZAPINE 15 MG TAB PO SCH (21:00)
[2016-04-27 22:00] VITALS: BP 169/70
[2016-04-28 06:00] VITALS: BP 94/63
[2016-04-28 06:01] LABS: BASO % 0.3 % (0.0-1.0); EOS # 0.6 K/mm3 (0.0-0.50); EOS % 9.7 % (0.0-3.0); LARGE UNSTAINED CELL # 0.2 K/mm3 (0.0-0.4); LARGE UNSTAINED CELL % 3.9 % (0.0-4.0); LYMPH # 1.1 K/mm3 (1.5-4.5); LYMPH % 19.6 % (24.0-44.0); MEAN CORPUSCULAR HEMOGLOBIN 29.5 pg (27.0-33.0); MEAN CORPUSCULAR HGB CONC 31.8 g/dl (32.0-36.5); MEAN CORPUSCULAR VOLUME 92.9 fl (80.0-96.0); MONO # 0.4 K/mm3 (0.0-0.8); MONO % 6.7 % (0.0-5.0); NEUTROPHILS # 3.4 K/mm3 (1.8-7.7); NEUTROPHILS % 59.8 % (36.0-66.0); PLATELET COUNT, AUTOMATED 300 k/mm3 (150-450); WHITE BLOOD COUNT 5.7 K/mm3 (4.0-10.0)
[2016-04-28 06:17] LABS: INR 2.5
[2016-04-28 06:22] LABS: ALBUMIN 2.4 GM/DL (3.2-5.2); ALBUMIN/GLOBULIN RATIO 0.69 (1.00-1.93); BILIRUBIN,TOTAL 0.2 MG/DL (0.2-1.0); CALCIUM LEVEL 8.1 MG/DL (8.8-10.2); CREATININE FOR GFR 1.12 MG/DL (0.55-1.02); GLOMERULAR FILTRATION RATE 48.9 (>32); POTASSIUM SERUM 4.8 MEQ/L (3.5-5.1); TOTAL PROTEIN 5.9 GM/DL (6.4-8.2)
[2016-04-28] MEDS ORDERED: VANCOMYCIN ORAL SOL 250MG/5ML ORAL SYRINGE PO ONE (09:00)
[2016-04-28] MEDS: LACTOBACILLUS ACIDOPHILUS CAP (BACID) PO SCH ×2 (09:59→21:08)
[2016-04-28] MEDS: LACOSAMIDE 50 MG TAB (VIMPAT) PO SCH ×2 (10:01→21:11)
[2016-04-28] MEDS: LEVOTHYROXINE 0.075 MG TAB (75 MCG) PO SCH (10:01)
[2016-04-28] MEDS: cefTRIAXone SOD 1 GM in D5W MINI-BAG PLUS 50 ML IV SCH (10:01)
[2016-04-28] MEDS: ALPRAZolam 0.25 MG TAB PO PRN ×3 (10:40→20:19)
[2016-04-28 14:00] VITALS: BP 124/70
[2016-04-28] MEDS: PREPARATION H OINTMENT (HEMORRHOID) PR PRN (15:15)
--- NOTE | 2016-04-28 18:31 | IPNPDOC ---
Date Seen The patient was seen on 04/28/16. Progress Note Hospitalist Progress Note Subjective: Secondary to the patient's dementia, she is unable to participate in the interview Objective: Physical Exam: Vitals: Vital Sign - Last 24 Hours 04/27/16 04/28/16 04/28/16 04/28/16 22:00 06:00 10:00 14:00 Temp 97.5 96.2 97.3 Pulse 90 82 84 Resp 18 16 16 B/P 169/70 94/63 124/70 Pulse Ox 97 96 93 O2 Delivery Nasal Cannula Nasal Cannula Room Air Room Air O2 Flow Rate 2.0 2.0 General: Asleep, not awakened by verbal stimuli HEENT: Normocephalic, atraumatic CV: Regular rate and rhythm Lungs: Clear to auscultation bilaterally Abd: Soft, nontender, nondistended Extremities: No edema Neuro: Contractures in all extremities Psych: Unable to assess Labs and Imaging: Laboratory Tests 04/28/16 05:45 Calcium Level 8.1 L, Aspartate Amino Transf (AST/SGOT) 12 L, Alanine Aminotransferase (ALT/SGPT) 9 L, Alkaline Phosphatase 88, Total Bilirubin 0.2, Total Protein 5.9 L, Albumin 2.4 L, Red Blood Count 3.61 L, Mean Corpuscular Volume 92.9, Mean Corpuscular Hemoglobin 29.5, Mean Corpuscular Hemoglobin Concent 31.8 L, Red Cell Distribution Width 15.0 H, Neutrophils (%) (Auto) 59.8 , Lymphocytes (%) (Auto) 19.6 L, Monocytes (%) (Auto) 6.7 H, Eosinophils (%) ( Auto) 9.7 H, Basophils (%) (Auto) 0.3, Neutrophils # (Auto) 3.4, Lymphocytes # ( Auto) 1.1 L, Monocytes # (Auto) 0.4, Eosinophils # (Auto) 0.6 H, Basophils # ( Auto) 0.0 Assessment and Plan: 89-year-old female with Alzheimer's dementia, history of CVA, history of both DVT and PE, seizure disorder, asthma, history of C. difficile colitis, hypothyroidism, recurrent UTI who was brought in from home secondary to fever. 1. Fever: At this time, it seems that her urine is the most likely source. C. difficile is negative and chest x-ray shows only a possible left base infiltrate , but the patient is not having any respiratory symptoms. The UA has 3+ leukoesterase, 1+ bacteria, and a urine culture is pending. Blood cultures have not grown anything at 24 hours. At this time, we will continue the patient on Rocephin. She has been afebrile and has a normal white count. The patient has been admitted multiple times recently, and Dr. Adler has been following her. We appreciate Dr. Adler's input on this current admission as well. 2. C. difficile colitis: We will continue the vancomycin pulse therapy that the patient was on at home. Also continue Bacid. Repeat C. difficile upon admission was negative. 3. Hypothyroidism: Continue home Synthroid 4. Seizure disorder: Continue home Vimpat 5. History of DVT and PE: Continue home Coumadin. INR is currently therapeutic. 6. Alzheimer's dementia: Continue home Remeron. 7. Asthma: Currently stable. Continue as needed albuterol. DVT prophylaxis: SCDs Dispo: pending Dr. Adler's recommendations VS, I&O, 24H, Fishbone Vital Signs/I&O Vital Signs Date Time Temp Pulse Resp B/P Pulse Ox O2 Delivery O2 Flow Rate FiO2 04/28/16 14:00 97.3 84 16 124/70 93 Room Air 04/28/16 06:00 2.0 I&O- Last 24 Hours up to 6 AM 04/28/16 06:00 Intake Total 1010 ml Balance 1010 ml Laboratory Data 24H LABS Laboratory Tests 2 04/28/16 05:45: Blood Urea Nitrogen 12, Creatinine 1.12H, Sodium Level 144, Potassium Level 4.8 , Chloride Level 108H, Carbon Dioxide Level 30, Calcium Level 8.1L, Aspartate Amino Transf (AST/SGOT) 12L, Alanine Aminotransferase (ALT/SGPT) 9L, Alkaline Phosphatase 88, Total Bilirubin 0.2, Total Protein 5.9L, Albumin 2.4L, Albumin/ Globulin Ratio 0.69L, Anion Gap 6L, White Blood Count 5.7, Red Blood Count 3.61L , Hemoglobin 10.6L, Hematocrit 33.5L, Mean Corpuscular Volume 92.9, Mean Corpuscular Hemoglobin 29.5, Mean Corpuscular Hemoglobin Concent 31.8L, Red Cell Distribution Width 15.0H, Platelet Count 300, Neutrophils (%) (Auto) 59.8, Lymphocytes (%) (Auto) 19.6L, Monocytes (%) (Auto) 6.7H, Eosinophils (%) (Auto) 9.7H, Basophils (%) (Auto) 0.3, Neutrophils # (Auto) 3.4, Lymphocytes # (Auto) 1.1L, Monocytes # (Auto) 0.4, Eosinophils # (Auto) 0.6H, Basophils # (Auto) 0.0 , Glomerular Filtration Rate 48.9, Large Unclassified Cells # 0.2, Large Unclassified Cells % 3.9, Magnesium Level 2.0, Prothromb Time International Ratio 2.50, Prothrombin Time 27.1H CBC/BMP Laboratory Tests 04/28/16 05:45 Calcium Level 8.1 L, Aspartate Amino Transf (AST/SGOT) 12 L, Alanine Aminotransferase (ALT/SGPT) 9 L, Alkaline Phosphatase 88, Total Bilirubin 0.2, Total Protein 5.9 L, Albumin 2.4 L, Red Blood Count 3.61 L, Mean Corpuscular Volume 92.9, Mean Corpuscular Hemoglobin 29.5, Mean Corpuscular Hemoglobin Concent 31.8 L, Red Cell Distribution Width 15.0 H, Neutrophils (%) (Auto) 59.8 , Lymphocytes (%) (Auto) 19.6 L, Monocytes (%) (Auto) 6.7 H, Eosinophils (%) ( Auto) 9.7 H, Basophils (%) (Auto) 0.3, Neutrophils # (Auto) 3.4, Lymphocytes # ( Auto) 1.1 L, Monocytes # (Auto) 0.4, Eosinophils # (Auto) 0.6 H, Basophils # ( Auto) 0.0 Microbiology Microbiology 04/27/16 Blood Culture - Preliminary, Resulted No growth after 24 hours . All specim... 04/27/16 Clostridium difficile (PCR) - Final, Complete 04/27/16 Urine Culture, Received Pending DEEJAY GRACE Apr 28, 2016 18:31
[2016-04-28] MEDS ORDERED: ALPRAZolam 0.5 MG TAB PO PRN (19:00)
[2016-04-28] MEDS: WARFARIN SOD 2.5 MG TAB PO SCH (21:08)
[2016-04-28] MEDS: MIRTAZAPINE 15 MG TAB PO SCH (21:10)
[2016-04-28 22:00] VITALS: BP 138/58
[2016-04-29 06:00] VITALS: BP 132/56
[2016-04-29 07:12] LABS: BASO % 0.5 % (0.0-1.0); EOS # 0.6 K/mm3 (0.0-0.50); EOS % 9.7 % (0.0-3.0); LARGE UNSTAINED CELL # 0.2 K/mm3 (0.0-0.4); LARGE UNSTAINED CELL % 3.2 % (0.0-4.0); LYMPH # 1.2 K/mm3 (1.5-4.5); LYMPH % 19.6 % (24.0-44.0); MEAN CORPUSCULAR HEMOGLOBIN 29.4 pg (27.0-33.0); MEAN CORPUSCULAR HGB CONC 31.5 g/dl (32.0-36.5); MEAN CORPUSCULAR VOLUME 93.4 fl (80.0-96.0); MONO # 0.4 K/mm3 (0.0-0.8); MONO % 6.7 % (0.0-5.0); NEUTROPHILS # 3.8 K/mm3 (1.8-7.7); NEUTROPHILS % 60.3 % (36.0-66.0); PLATELET COUNT, AUTOMATED 299 k/mm3 (150-450); RED CELL DISTRIBUTION WIDTH 14.9 % (11.5-14.5); WHITE BLOOD COUNT 6.3 K/mm3 (4.0-10.0)
[2016-04-29 07:19] LABS: INR 2.7
[2016-04-29 07:51] LABS: ALBUMIN 2.5 GM/DL (3.2-5.2); ALBUMIN/GLOBULIN RATIO 0.86 (1.00-1.93); BILIRUBIN,TOTAL 0.2 MG/DL (0.2-1.0); CALCIUM LEVEL 8.2 MG/DL (8.8-10.2); CREATININE FOR GFR 1.2 MG/DL (0.55-1.02); GLOMERULAR FILTRATION RATE 45.1 (>32); MAGNESIUM LEVEL 2.1 MG/DL (1.8-2.4); POTASSIUM SERUM 4.6 MEQ/L (3.5-5.1); TOTAL PROTEIN 5.4 GM/DL (6.4-8.2)
[2016-04-29] MEDS: ALPRAZolam 0.25 MG TAB PO PRN (09:20)
[2016-04-29] MEDS: LACTOBACILLUS ACIDOPHILUS CAP (BACID) PO SCH (09:20)
[2016-04-29] MEDS: cefTRIAXone SOD 1 GM in D5W MINI-BAG PLUS 50 ML IV SCH (09:21)
[2016-04-29] MEDS: PREPARATION H OINTMENT (HEMORRHOID) PR PRN (09:21)
[2016-04-29] MEDS: LACOSAMIDE 50 MG TAB (VIMPAT) PO SCH (09:21)
[2016-04-29] MEDS: LEVOTHYROXINE 0.075 MG TAB (75 MCG) PO SCH (09:21)
--- NOTE | 2016-04-29 17:40 | CR ---
DATE OF CONSULTATION: 04/28/2016 REASON FOR CONSULTATION: Asked to consult by hospitalist for evaluation of patient with recurrent fever and frequent admission to the hospital, at least six over the previous six months. Mrs. Tovar is an 89-year-old female with a history of Alzheimer's dementia and cerebrovascular accident (CVA) who was hospitalized last week and discharged home on 04/24/2016 after she was here for three days. Her daughter brought her back because she had a fever of 101.4. The patient's daughter stated that she was fatigued, lethargic and having fevers. She also has a nonproductive cough. The patient seems to cough every time she eats and has been having honey thickened food. The patient's family was concerned because she was having persisting fever. On arrival to the emergency room (ER), her temperature was 100.3. The patient's lactic acid was within normal. She was admitted to the hospital with a diagnosis of presumptive urinary tract infection and was started on intravenous (IV) Rocephin. The patient's daughter, who is a registered nurse and works in the emergency room, states that the reason she has recurrent urinary tract infections (UTIs) is because she is having this chronic loose stool that is described as pudding in consistency, that is constantly smearing her pad and therefore causing recurrent urinary tract infection, and she wants us to fix the problem so her mother would not have the problem anymore. The patient, at baseline before, used to have chronic constipation and needed laxatives. Now she has more of a soft stool since she has had Clostridium (C) difficile. The patient has been on vancomycin tapering for weeks and her last dose will be today. She had one episode of C. difficile in the past three months. PAST MEDICAL HISTORY: 1. Asthma. 2. Alzheimer's dementia. 3. Cerebrovascular accident (CVA). 4. 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 She was supposed to remain on lifelong Coumadin. 5. Hypothyroidism. 6. Seizure disorder. 7. Nocturnal hypoxia on oxygen during sleep. 8. History of Clostridium (C) difficile, on vancomycin taper. Repeated stool specimens done on 03/23/2016 were negative; 04/22/2016 were also negative. Gastrointestinal (GI) panel on 04/27/2016, C. difficile was negative. 9. Recurrent urinary tract infection, stool and urinary incontinence. Recurrent urinary tract infection in 01/2017 was mostly Enterococcus faecalis; most recently, have been fungal pathogen in the urine, but they have not been treated in the past month because she has an allergy to fluconazole. When discussed with the daughter, the allergy to fluconazole is presumably an interaction with Coumadin, causing her INR to be extremely high. PAST SURGICAL HISTORY: 1. Cholecystectomy. 2. Back surgery times two. She never had a colonoscopy. FAMILY HISTORY: Non-revealing. SOCIAL HISTORY: No drug or alcohol use. She lives with her daughter and two caregivers. She is FULL CODE. PHYSICAL EXAMINATION: VITAL SIGNS: Temperature 97.3, pulse 91, respirations 19, blood pressure 138/58, oxygen saturation 92% on room air. She had a temperature of 100.3 on 04/27/2016. GENERAL: Currently the patient is sleeping, resting comfortably, not agitated. HEART: Normal S1, S2. No murmurs. LUNGS: Clear. No wheezes, rales or rhonchi. ABDOMEN: Soft, nontender. No visceromegaly. BACK: No costovertebral angle (CVA) tenderness. EXTREMITIES: No edema. She has tight thromboembolitic deterrent (MI) stockings. I could not see her skin on her lower extremities. The patient at baseline with dementia. Does not respond or questions appropriately. LABORATORY DATA: White count yesterday was 10.8, today 5.7, hemoglobin 10.6, hematocrit 33.5, platelets 300, 59% neutrophils, 19% lymphocytes, 6% monocytes. Sodium 144, potassium 4.8, chloride 108, bicarbonate 30, BUN 12, creatinine 1.12, glucose 88, calcium 8.1, magnesium 2. AST 12, ALT 9, alkaline phosphatase 88, albumin 2.4. MICROBIOLOGY: Blood culture was done on 04/27/2016. One set was no growth after 24 hours. Clostridium (C) difficile was negative. Urine culture is still pending. Gastrointestinal (GI) panel was done on 04/22/2016 was negative. Urinalysis had 186 white cells and seven red cells, +1 bacteria, small amorphous sediment, negative nitrite, negative blood, +3 leukocyte esterase. IMAGING STUDIES: Chest x-ray was done on 04/27/2016 shows cardiomegaly, mild left basilar infiltrate and small left effusion. CT angiogram was done during the previous admission on 03/31/2016, which showed no mild pulmonary embolism. The right main and left main pulmonary arteries were normal. Some bibasilar atelectasis or scarring. CT of the abdomen was done on 03/20/2016, which showed no evidence of abscess or acute pathology. IMPRESSION: This is an 89-year-old female with a history of Alzheimer's dementia, urinary and stool incontinence, who has had frequent bowel movements over the past three months and now has had recurrent urinary tract infection, multiple repeated admissions for fever. Some were related to probably urinary infection, others were influenza related. Most recently, her two cultures from 03/31/2016 and 04/11/2016 had yeastlike organisms, but he is she has not been treated for these in the urine as one of the admissions was related to influenza and the presumed allergy to fluconazole. PLAN: 1. Continue IV Rocephin pending the results of the urine culture. If urine culture is positive for gram-negative or pathogen susceptible to ceftriaxone, continue with IV ceftriaxone. If fungal, I would decrease the dose of Coumadin which, at baseline, she takes 2.5 mg daily, to maybe 1 mg daily and give her fluconazole for 1 week. In terms of stool in consistency, I did not have too many recommendations to help them with improving that. They have already tried Lomotil and Metamucil with no relief. She has never had a colonoscopy and she may have some colonic pathology that we are not aware of. Vancomycin could be giving her these loose stools and maybe probiotics. May opt to discontinue all those medications, even probiotics, to see if her stool consistency will improve. 2. As far as recurring urinary tract infection, I had offered them chronic suppressive therapy with fosfomycin, but that would be of no benefit if the patient is having fungal urinary tract infection. That will prevent maybe Escherichia (E) coli and Enterococcus faecalis. 3. I have discussed with them at length a DNR status. The patient's daughter, Chelsea, is adamant that her mother should be on FULL CODE unless she decides differently, that it was unfair to treat her any differently then patient with multiple sclerosis. I discussed her advanced age and frequent admissions and the daughter was not realistic about the fact that we could not change the course of her mother's deterioration with her Alzheimer's, and that these admissions are a manifestation of her deteriorating well-being. 4. Also, her fevers could be related to her recurrent microaspiration, as the patient has been noted to have multiple coughing episodes after she eats, and may be the reason for her recurrent fevers.
--- NOTE | 2016-05-02 10:05 | DSES ---
DATE OF ADMISSION: 04/28/2016 DATE OF DISCHARGE: 04/29/2016 PRIMARY CARE PROVIDER: Josef Calderon. DISCHARGE DIAGNOSES: Recurrent febrile episodes most probably related to recurrent microaspirations. Advanced Alzheimer's dementia, nonverbal at baseline, bed bound. History of deep venous thrombosis (DVT) and pulmonary emboli (PE) after immobilization about 3 years ago, currently on Coumadin. Hypothyroidism. Seizure disorder. History of cerebrovascular accident. History of recurrent urinary tract infections, at present no infection was found. History of Clostridium difficile infection in December 2015, finished vancomycin taper, repeat stool specimens from February 2016, March 2016 and April 2016 has been negative. Urinary and stool incontinence. Chronic liquid consistency of stools felt to be related to vancomycin or Probiotics. Anxiety. Nocturnal hypoxia on oxygen during sleep. DISCHARGE MEDICATIONS: - Tylenol 500 mg by mouth every 4 hours as needed pain or fever - albuterol sulfate 2.5 mg inhalation every 6 hours as needed shortness of breath - alprazolam 0.25 mg tablet one to two tablets every 4 hours as needed - Vimpat 100 mg by mouth twice daily - lactobacillus one tablet by mouth twice daily - Synthroid 75 mcg by mouth daily - mirtazapine 45 mg at bedtime - vitamins one tablet by mouth daily - Coumadin 2.5 mg six times per week HOSPITAL COURSE: This is an 89-year-old female with advanced Alzheimer's dementia, nonverbal and bed bound at baseline with urinary and stool incontinence and on pureed diet with nectar thickened fluids, presented to the hospital with febrile episode. This is her sixth admission for febrile episode over the past 6 months. Patient had a full workup for infection etiology done which came back negative. Patient's urinalysis was dirty, however, patient's urine culture did not show any growth. Her blood cultures have been negative. Chest x-ray showed some basilar atelectasis but no other acute cardiopulmonary findings. Patient was evaluated by Dr. Adler and it was felt that her episodes of fever that has been going on over the past several months may be related to microaspirations as it has been noted that every time she is fed, she often has episodes of coughing. In prior admissions, percutaneous endoscopic gastrostomy tube insertion has been discussed with daughter who is the health care proxy and she did not want percutaneous endoscopic gastrostomy tube placement. During this admission, advanced directives were again discussed with patient's daughter explaining that in view of her advanced age, medical comorbidities, frequent admissions, signifies that she is a manifestation of her deteriorating of her well being and it would be reasonable to consider making her DO NOT RESUSCITATE/DO NOT INTUBATE status, however, daughter is adamant that her mother should be FULL CODE and we did try to explain that the course of her deterioration cannot be stopped and cannot be reversed and frequent admissions will continue to happen. After admission to the hospital, patient did not have any further febrile episodes. Patient on the day of discharge has been in baseline function status. Vitals stable. She is discharged home in stable condition. PHYSICAL EXAMINATION: Vital signs: Temperature 96.7, pulse 84, respiratory rate 17, blood pressure 132/56, pulse oximetry 93% with 2 liters nasal cannula. General: Patient awake but easily falls asleep, nonverbal but opens eyes when spoken to. HEENT: Normocephalic, atraumatic. Moist mucous membranes. Anicteric eyes. Chest: Clear to auscultation. Cardiovascular: S1, S1. Regular. No rub, murmur or gallop. Abdomen: Soft, nontender. Bowel sounds present. Extremities: No edema. Laboratory data: WBC 6.3, hemoglobin 10.7, platelets 299. Sodium 144, potassium 4.6, chloride 107, bicarbonate 30, BUN 12, creatinine 1.2. Glucose 83, calcium 8.2. Liver function tests are normal. INR 2.7. Urine culture negative. Urinalysis shows 156 WBC possibly due to colonization. Clostridium difficile negative. Blood cultures negative. DISPOSITION: Patient is discharged home in stable condition. DISCHARGE INSTRUCTIONS: Patient to followup with primary care provider in 1-2 weeks. Diet to continue pureed with thickened fluids and aspiration precautions.
== END 2016-04-29 12:08 | disposition home or self-care (01) | DRG 206 ==
LOC: M ED 01:43 → M MSPAV 05:00 → M ED 05:58 → OBSVTOIN 04-28 13:05
PROVIDERS: ADMIT Internal Medicine; ATTEND Internal Medicine Nephrology
DX: R09.01 Asphyxia (principal); R63.3 Feeding difficulties; E03.9 Hypothyroidism, unspecified; G40.909 Epilepsy, unspecified, not intractable, without status epilepticus; F02.80 Dementia in other diseases classified elsewhere, unspecified severity, without behavioral disturbance, psychotic disturbance, mood disturbance, and anxiety; Z79.01 Long term (current) use of anticoagulants; Z86.718 Personal history of other venous thrombosis and embolism; Z86.711 Personal history of pulmonary embolism; Z86.73 Personal history of transient ischemic attack (TIA), and cerebral infarction without residual deficits; R19.7 Diarrhea, unspecified; F41.9 Anxiety disorder, unspecified; Z79.899 Other long term (current) drug therapy; J45.909 Unspecified asthma, uncomplicated

== ENCOUNTER 2016-05-11 22:11 | Inpatient (IN) | payer MEDICARE, MEDICAID ==
[~2016-05-11] VITALS: Ht 152.4 cm; Wt 53.2 kg
[~2016-05-11 22:11] MED LIST changes: +ALBU83IN INH; +PREN1TAB11 PO; +TYLE500T78 PO; -UNRESOLVED CLARIFICATION ENTRY XX SCH
[2016-05-11] MEDS ORDERED: PEPT262S PO (22:22)
[2016-05-11] MEDS ORDERED: IMOD2CAP PO (22:22)
[2016-05-11] MEDS: NS 1,000 ML IV SCH (23:55)
[2016-05-12] LABS: BASO % 0.2 % (0.0-1.0); EOS # 0.4 K/mm3 (0.0-0.50); EOS % 2.4 % (0.0-3.0); LARGE UNSTAINED CELL # 0.2 K/mm3 (0.0-0.4); LARGE UNSTAINED CELL % 0.9 % (0.0-4.0); LYMPH # 0.9 K/mm3 (1.5-4.5); LYMPH % 5.1 % (24.0-44.0); MEAN CORPUSCULAR HEMOGLOBIN 29.3 pg (27.0-33.0); MEAN CORPUSCULAR HGB CONC 32.4 g/dl (32.0-36.5); MEAN CORPUSCULAR VOLUME 90.5 fl (80.0-96.0); MONO # 0.7 K/mm3 (0.0-0.8); MONO % 4.1 % (0.0-5.0); NEUTROPHILS # 14.5 K/mm3 (1.8-7.7); NEUTROPHILS % 87.4 % (36.0-66.0); PLATELET COUNT, AUTOMATED 236 k/mm3 (150-450); RED CELL DISTRIBUTION WIDTH 14.7 % (11.5-14.5); WHITE BLOOD COUNT 16.6 K/mm3 (4.0-10.0)
[2016-05-12 00:06] LABS: VENOUS BASE EXCESS -4.4 (-2.0-2.0); VENOUS PARTIAL PRESSURE CO2 32.4 mmHg (38.0-50.0); VENOUS PARTIAL PRESSURE O2 80.9 mmHg (30.0-50.0); VENOUS STANDARD HCO3 20.8 MEQ/L; VENOUS TOTAL CO2 20.5 MEQ/L (24.0-28.0)
[2016-05-12 00:08] LABS: INR 2.22
[2016-05-12 00:25] LABS: ALBUMIN/GLOBULIN RATIO 0.81 (1.00-1.93); ALKALINE PHOSPHATASE 100 U/L (45-117); ALT/SGPT 16 U/L (12-78); ANION GAP 9 MEQ/L (8-16); AST/SGOT 16 U/L (15-37); BILIRUBIN,DIRECT < 0.1 MG/DL (0.0-0.2); BILIRUBIN,TOTAL 0.2 MG/DL (0.2-1.0); BLOOD UREA NITROGEN 13 MG/DL (7-18); CALCIUM LEVEL 8.5 MG/DL (8.8-10.2); CARBON DIOXIDE LEVEL 26 MEQ/L (21-32); CHLORIDE LEVEL 106 MEQ/L (98-107); CREATININE FOR GFR 1.05 MG/DL (0.55-1.02); GLOMERULAR FILTRATION RATE 52.7 (>32); GLUCOSE, FASTING 117 MG/DL (83-110); POTASSIUM SERUM 4.3 MEQ/L (3.5-5.1); SODIUM LEVEL 141 MEQ/L (136-145); TOTAL PROTEIN 6.7 GM/DL (6.4-8.2)
[2016-05-12 00:35] LABS: YEAST LIKE CELL URINE AUTO SMALL
--- NOTE | 2016-05-12 02:20 | REPUSA ---
CLINICAL HISTORY: Left lower lobe pulmonary infiltrates. TECHNIQUE: Multiple axial CT images were obtained through chest with IV contrast material. MPR hernandez l and sagittal sequences were obtained. COMMENTS: Moderate sliding hiatal hernia. Air-fluid level in the diffusely dilated esophagus. Moderate cardiomegaly. Small pericardial effusion. Left lower lobe pulmonary consolidation. Bilateral basilar atelectatic pulmonary changes. There is no evidence of pleural or parenchymal mass. There are no pleural effusions. There is no evid ence of hilar or mediastinal lymphadenopathy. IMPRESSION: Moderate sliding hiatal hernia. Air-fluid levels in the mildly dilated esophagus. Small pericardial effusion. Moderate cardiomegaly. Left lower lobe consolidation. Thank you for your kind referral of this patient.
--- NOTE | 2016-05-12 02:28 | ECGEPIP ---
Stationary ECG Study 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
[2016-05-12] MEDS ORDERED: MEROPENEM INJ 1 GM in D5W MINI-BAG PLUS 100 ML IV ONE (03:00)
--- NOTE | 2016-05-12 05:26 | HPEPDOC ---
General Date of Admission May 12, 2016 at 03:52 Chief Complaint The patient is a 89-year-old female Presented to the ER with complaints of fever of 100.6F at home History of Present Illness Patient is an 89 year old female well known to the Hospitalist service , with a PMHx of Alzheimers, Asthma, CVA, DVT, PE, Hypothyroidism, Seizure disorder, Chronic hypoxic respiratory failure, Hx of C. diff (off of Vancomycin taper therapy) who presented to the ED with complaints of fever of 100.6F at home. Patient is baseline non-verbal and unable to provide any details to the story. The patients daughter has provided all the details and is her caretaker grounds. She has noted her mother has had 2 large bowel movements 2 days ago and noticed some stool within the vagina. She notes that 2 days later she had measured a fever of 100.6F. She reports that her mother has not been coughing, has not had shortness of breath, nausea, vomiting, chest pain or diarrhea. She reports that she has not had a bowel movement in two days, but this is normal for her Home Medications Scheduled ( Vitamin 27-0.8 mg) 1 Tab Tab 1 TAB PO DAILY (Reported) (Imodium A-D) 2 Mg Cap 2 MG PO TID (Reported) Alprazolam (Xanax) 0.25 Mg Tab 0.25 MG PO Q4H (Reported) AT 0900, 1430, 1700, AND 1900 Bismuth Subsalicylate (Pepto-Bismol) 262 Mg/15 Ml Bety 30 ML PO BID (Reported) Lacosamide (Vimpat) 100 Mg Tab 100 MG PO BID (Reported) Lactobacillus Acidophilus (Bacid) 1 Tab Tab 1 TAB PO BID (Reported) Levothyroxine Sodium (Synthroid) 75 Mcg Tab 75 MCG PO DAILY (Reported) Mirtazapine (Mirtazapine) 45 Mg Tab 45 MG PO QHS (Reported) Warfarin Sod (Warfarin Sodium) 2.5 Mg Tab 2.5 MG PO ASDIRECTED (Reported) 6xW: Thurs, Fri, Sat, Sun, Mon, Tues. Scheduled PRN Acetaminophen (Tylenol Extra Strength) 500 Mg Tab 500 MG PO Q4H PRN PRN PAIN / FEVER (Reported) Albuterol Sulfate (Albuterol Sulfate) 2.5 Mg/3 Ml Nebu 2.5 MG INH Q6HP PRN PRN SHORTNESS OF BREATH (Reported) Allergies Coded Allergies: Penicillins (Verified Allergy, Severe, ANAPHYLAXIS w/ PCN; HAS TOLERATED ROCEPHIN in the PAST, 05/11/16) Metronidazole (Verified Allergy, Intermediate, HIVES, 05/11/16) Moxifloxacin (Verified Allergy, Intermediate, spastic tremors, 05/11/16) Fluconazole (Verified Allergy, Unknown, 05/11/16) Pineapple (Verified Allergy, Unknown, CANNED ONLY, FRESH IS OK, 05/11/16) Erythromycin (Verified Adverse Reaction, Mild, GASTROINTESTINAL, 05/11/16) Aspirin (Verified Adverse Reaction, Unknown, TOLD TO AVOID DUE TO ASTHMA, 05/11/16) Past Medical History Medical History Alzheimers, Asthma, CVA, DVT, PE, Hypothyroidism, Seizure disorder, Chronic hypoxic respiratory failure, Hx of C. diff (off of Vancomycin taper therapy) Surgical History Cholecystectomy Back surgery Family History - Non-contributory Social History - Denies the use of alcohol, tobacco or illicit drugs - Denies recent travel or sick contacts - Lives with daughter at home Review of Symptoms Other systems Unable to obtain as patient is non-verbal Vital Signs - Vitals: BP 115/59, HR 84, RR 18, Sat 97%RA, Temp 99.0F - General: Lying in bed, No acute distress, Non-verbal - HEENT: NC, AT, Pupils reactive - CVS: RRR, +S1S2, - Lungs: Poor inspiratory effort; no appreciable crackles / wheezing / rhonchi - Abdomen: Soft, Non-distended, Non-tender, + Bowel sounds x 4 - Extremities: + PPx4, No lower extremity edema, No calf tenderness - Neuro: Does not move lower extremities - Skin: No visible rashes Laboratory Data Labs 24H Laboratory Tests 2 05/11/16 23:53: Activated Partial Thromboplast Time 35.7, Aspartate Amino Transf (AST/SGOT) 16, Alanine Aminotransferase (ALT/SGPT) 16, Alkaline Phosphatase 100, Total Bilirubin 0.2, Direct Bilirubin < 0.1, Albumin 3.0L, Albumin/Globulin Ratio 0.81L, Anion Gap 9, White Blood Count 16.6H, Red Blood Count 4.22, Hemoglobin 12.4, Hematocrit 38.2, Mean Corpuscular Volume 90.5, Mean Corpuscular Hemoglobin 29.3, Mean Corpuscular Hemoglobin Concent 32.4, Red Cell Distribution Width 14.7H, Platelet Count 236, Neutrophils (%) (Auto) 87.4H, Lymphocytes (%) (Auto) 5.1L, Monocytes (%) (Auto) 4.1, Eosinophils (%) (Auto) 2.4, Basophils (%) (Auto) 0.2, Neutrophils # (Auto) 14.5H, Lymphocytes # (Auto) 0.9L, Monocytes # (Auto) 0.7, Eosinophils # (Auto) 0.4, Basophils # (Auto) 0.0, Blood Gas Bicarbonate Standard 20.8, C-Reactive Protein, Quantitative 0.69H, Calcium Level 8.5L, Creatine Kinase MB 1.0, Creatine Kinase MB Relative Index 3.84, Glomerular Filtration Rate 52.7, Lactic Acid (Sepsis) 1.8, Large Unclassified Cells # 0.2, Large Unclassified Cells % 0.9, Prothromb Time International Ratio 2.22, Prothrombin Time 24.7H, Total Creatine Kinase 26, Total Protein 6.7, Troponin I < 0.02, Venous Blood Base Excess -4.4L, Venous Blood pH 7.397, Venous Blood Partial Pressure CO2 32.4L, Venous Blood Partial Pressure O2 80.9H, Venous Blood Total Carbon Dioxide 20.5L, Venous Blood HCO3 19.5L, Venous Blood Oxygen Saturation 96.0H 05/12/16 00:03: Urine Amorphous Sediment , Urine Appearance HAZY, Urine Color YELLOW, Urine pH 5.0, Urine Specific Tab[place] 1.005, Urine Protein NEGATIVE, Urine Glucose (UA) NEGATIVE, Urine Ketones NEGATIVE, Urine Urobilinogen 0.2, Urine Bilirubin NEGATIVE, Urine Leukocyte Esterase 3+H, Urine Bacteria (Auto) 1+H, Urine Blood NEGATIVE, Urine Calcium Carbonate Cryst(Auto) , Urine Calcium Oxalate Cryst ( Auto) , Urine Calcium Phosphate Michelle (Auto) , Urine Cellular Casts , Urine Cystine Crystals , Urine Granular Casts (Auto) , Urine Hyaline Casts (Auto) 0, Urine Leucine Crystals , Urine Mucus (Auto) SMALL, Urine Nitrite NEGATIVE, Urine Oval Fat Bodies (Auto) , Urine RBC (Auto) 6H, Urine Renal Epithelial Cells , Urine Sperm (Auto) , Urine Squamous Epithelial Cells 1, Urine Transitional Epithelial Cells , Urine Trichomonas (Auto) , Urine Triple Phosphate Cryst (Auto) , Urine Tyrosine Crystals , Urine Uric Acid Crystals ( Auto) , Urine WBC (Auto) 78H, Urine Waxy Casts (Auto) , Urine Yeast-Like Cells ( Auto) SMALLH CBC/BMP Laboratory Tests 05/11/16 23:53 Red Blood Count 4.22, Mean Corpuscular Volume 90.5, Mean Corpuscular Hemoglobin 29.3, Mean Corpuscular Hemoglobin Concent 32.4, Red Cell Distribution Width 14.7 H, Neutrophils (%) (Auto) 87.4 H, Lymphocytes (%) (Auto) 5.1 L, Monocytes ( %) (Auto) 4.1, Eosinophils (%) (Auto) 2.4, Basophils (%) (Auto) 0.2, Neutrophils # (Auto) 14.5 H, Lymphocytes # (Auto) 0.9 L, Monocytes # (Auto) 0.7 , Eosinophils # (Auto) 0.4, Basophils # (Auto) 0.0 Microbiology Microbiology 05/12/16 Blood Culture, Received Pending 05/11/16 Blood Culture, Received Pending 05/12/16 Urine Culture, Received Pending Plan / VTE VTE Prophylaxis Ordered?: Yes Plan Plan Fever at home possibly 2/2 pneumonia (HCAP), possibly 2/2 UTI (less likely) - Presented with fever from home - Negative review of systems - Physical unrevealing - Leukocytosis of 16.6; no elevation in lactic acid - CT chest 05/12: LLL consolidation - Will cover with meropenem for now Alzheimers - c/w Alprazolam Asthma - c/w albuterol PRN CVA DVT and PE - INR therapeutic - c/w warfarin 2.5 daily Hypothyroidism - c/w levothyroxine Seizure disorder - c/w lacosamide Chronic hypoxic respiratory failure Hx of C. diff - Has completed vancomycin taper therapy - No diarrhea at this time GERD - c/w bismuth - reports she takes Imodium regularly DVT prophylaxis - On full anticoagulation with Coumadin ROME SOLANO MD May 12, 2016 05:26
[2016-05-12 05:30] VITALS: BP 122/50
[2016-05-12] MEDS ORDERED: ALBUTEROL SULFATE 2.5 MG/0.5 ML INH NEB SOLN INH PRN (05:30)
[2016-05-12] MEDS ORDERED: HEPARIN SOD (PORCINE) 5000 UNITS/ML VIAL SC SCH (06:00)
[2016-05-12 06:48] LABS: INR 2.6
--- NOTE | 2016-05-12 07:45 | REP ---
Clinical: Sepsis. Comparison: 04/27/2016. Findings: Cardiomegaly stable. Chronic changes are again identified with superimposed basilar atelectasis (left greater than right). Small layering left effusion cannot be excluded. No obvious pneumothorax. Skeletal structures intact. Impression: Bibasilar atelectasis (left greater than right). Signed by Chepe Schroeder MD 05/12/2016 07:37 A
[2016-05-12] MEDS: NS 1,000 ML IV SCH ×2 (09:15→18:41)
[2016-05-12] MEDS: ALPRAZolam 0.25 MG TAB PO SCH ×5 (09:26→19:13)
[2016-05-12] MEDS: LACOSAMIDE 50 MG TAB (VIMPAT) PO SCH ×2 (09:26→20:43)
[2016-05-12] MEDS: LOPERAMIDE 2 MG CAP PO SCH ×3 (09:26→20:43)
[2016-05-12] MEDS: LEVOTHYROXINE 0.075 MG TAB (75 MCG) PO SCH (09:26)
[2016-05-12] MEDS: PINK BISMUTH SUSP 524MG/30ML ORAL SYRINGE PO SCH ×2 (09:30→23:21)
[2016-05-12 10:00] VITALS: BP 128/52
[2016-05-12 14:00] VITALS: BP 95/46
[2016-05-12] MEDS: MEROPENEM INJ 1 GM in D5W MINI-BAG PLUS 100 ML IV SCH (15:51)
[2016-05-12] MEDS: WARFARIN SOD 2.5 MG TAB PO SCH (17:14)
[2016-05-12] MEDS: MIRTAZAPINE 15 MG TAB PO SCH (20:43)
[2016-05-12 22:00] VITALS: BP 117/61
[2016-05-13 02:00] VITALS: BP 111/56
[2016-05-13] MEDS: MEROPENEM INJ 1 GM in D5W MINI-BAG PLUS 100 ML IV SCH ×2 (02:54→14:43)
[2016-05-13] MEDS: NS 1,000 ML IV SCH (05:15)
[2016-05-13 06:00] VITALS: BP 101/72
[2016-05-13 06:33] LABS: BASO % 0.4 % (0.0-1.0); EOS # 0.4 K/mm3 (0.0-0.50); EOS % 4.9 % (0.0-3.0); LARGE UNSTAINED CELL # 0.2 K/mm3 (0.0-0.4); LARGE UNSTAINED CELL % 2.4 % (0.0-4.0); LYMPH # 1.5 K/mm3 (1.5-4.5); LYMPH % 17.2 % (24.0-44.0); MEAN CORPUSCULAR HEMOGLOBIN 29.4 pg (27.0-33.0); MEAN CORPUSCULAR HGB CONC 31.2 g/dl (32.0-36.5); MONO # 0.6 K/mm3 (0.0-0.8); MONO % 6.9 % (0.0-5.0); NEUTROPHILS # 5.4 K/mm3 (1.8-7.7); NEUTROPHILS % 68.2 % (36.0-66.0); PLATELET COUNT, AUTOMATED 216 k/mm3 (150-450); WHITE BLOOD COUNT 7.9 K/mm3 (4.0-10.0)
[2016-05-13 06:38] LABS: INR 2.62
[2016-05-13 06:54] LABS: ALBUMIN 2.3 GM/DL (3.2-5.2); ALBUMIN/GLOBULIN RATIO 0.72 (1.00-1.93); BILIRUBIN,TOTAL 0.3 MG/DL (0.2-1.0); CALCIUM LEVEL 7.8 MG/DL (8.8-10.2); CREATININE FOR GFR 0.98 MG/DL (0.55-1.02); MAGNESIUM LEVEL 1.9 MG/DL (1.8-2.4); POTASSIUM SERUM 4.3 MEQ/L (3.5-5.1); TOTAL PROTEIN 5.5 GM/DL (6.4-8.2)
[2016-05-13] MEDS: LEVOTHYROXINE 0.075 MG TAB (75 MCG) PO SCH (08:35)
[2016-05-13] MEDS: PINK BISMUTH SUSP 524MG/30ML ORAL SYRINGE PO SCH ×2 (08:35→21:15)
[2016-05-13] MEDS: LACOSAMIDE 50 MG TAB (VIMPAT) PO SCH ×2 (08:35→21:06)
[2016-05-13] MEDS: LOPERAMIDE 2 MG CAP PO SCH ×3 (08:35→21:05)
[2016-05-13] MEDS: LANSOPRAZOLE SUSPENSION 30 MG/10 ML ORAL SYRINGE (FIRST-LANSOPRAZOLE) PO SCH ×2 (09:00→21:05)
--- NOTE | 2016-05-13 11:31 | IPNPDOC ---
Subjective Date Seen The patient was seen on 05/13/16. Subjective Chief Complaint/HPI The patient is a 89-year-old female admitted with a reason for visit of Left Lower Lobe Pneumonia. Events since last encounter no further febrile episodes after hospitalization , comfortable, sleeping , non verbal , advanced dementia , bed ridden completely dependent in all ADLs, opens eyes when woken up. no cough or phlegm , no diarrhea , no vomiting. Objective Physical Examination General Exam: Positive: No Acute Distress Eye Exam: Positive: Conjunctiva & lids normal, EOMI, PERRLA, Negative: Sclera icteric Neck Exam: Positive: Supple, Negative: JVD, thyromegaly Chest Exam: Positive: Normal air movement, Rales (left base) Heart Exam: Positive: Irregular Rhythm, Normal S1, Normal S2 Abdomen Exam: Positive: Normal bowel sounds, Soft, Negative: Hepatospenomegaly, Tenderness Extremity Exam: Positive: Normal pulses, Negative: Clubbing, Cyanosis, Edema Skin Exam: Positive: Nl turgor and temperature, Negative: Breakdown, Rash Assessment /Plan Problems (1) Left lower lobe pneumonia Status: Acute Problem Text: possibly aspiration pneumonia from silent aspiration from hiatal hernia and dialated esophagus. will continue with meropenum pending blood cultures. (2) Sliding hiatal hernia Status: Chronic Response to Treatment: Stable Problem Text: may be causing recurrent silent aspirations with aspiration pneumonitis presenting as febrile episodes now has developed pneumonia. 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 Problem Text: continue coumadin Plan/VTE VTE Prophylaxis Ordered?: Yes VS, I&O, 24H, Fishbone Vital Signs/I&O Vital Signs Date Time Temp Pulse Resp B/P Pulse Ox O2 Delivery O2 Flow Rate FiO2 05/13/16 09:00 Nasal Cannula 2.0 05/13/16 06:00 97.0 72 16 101/72 99 I&O- Last 24 Hours up to 6 AM 05/13/16 06:00 Intake Total 1880 ml Balance 1880 ml Laboratory Data 24H LABS Laboratory Tests 2 05/13/16 06:22: Blood Urea Nitrogen 10, Creatinine 0.98, Sodium Level 145, Potassium Level 4.3, Chloride Level 115H, Carbon Dioxide Level 24, Calcium Level 7.8L, Aspartate Amino Transf (AST/SGOT) 14L, Alanine Aminotransferase (ALT/SGPT) 11L, Alkaline Phosphatase 77, Total Bilirubin 0.3, Total Protein 5.5L, Albumin 2.3#L, Albumin/ Globulin Ratio 0.72L, Anion Gap 6L, White Blood Count 7.9, Red Blood Count 3.51L , Hemoglobin 10.3#L, Hematocrit 33.0L, Mean Corpuscular Volume 94.0, Mean Corpuscular Hemoglobin 29.4, Mean Corpuscular Hemoglobin Concent 31.2L, Red Cell Distribution Width 15.0H, Platelet Count 216, Neutrophils (%) (Auto) 68.2H , Lymphocytes (%) (Auto) 17.2L, Monocytes (%) (Auto) 6.9H, Eosinophils (%) (Auto ) 4.9H, Basophils (%) (Auto) 0.4, Neutrophils # (Auto) 5.4, Lymphocytes # (Auto ) 1.5, Monocytes # (Auto) 0.6, Eosinophils # (Auto) 0.4, Basophils # (Auto) 0.0 , Glomerular Filtration Rate 57.0, Large Unclassified Cells # 0.2, Large Unclassified Cells % 2.4, Magnesium Level 1.9, Prothromb Time International Ratio 2.62, Prothrombin Time 28.1H CBC/BMP Laboratory Tests 05/13/16 06:22 Calcium Level 7.8 L, Aspartate Amino Transf (AST/SGOT) 14 L, Alanine Aminotransferase (ALT/SGPT) 11 L, Alkaline Phosphatase 77, Total Bilirubin 0.3, Total Protein 5.5 L, Albumin 2.3 #L, Red Blood Count 3.51 L, Mean Corpuscular Volume 94.0, Mean Corpuscular Hemoglobin 29.4, Mean Corpuscular Hemoglobin Concent 31.2 L, Red Cell Distribution Width 15.0 H, Neutrophils (%) (Auto) 68.2 H, Lymphocytes (%) (Auto) 17.2 L, Monocytes (%) (Auto) 6.9 H, Eosinophils (%) ( Auto) 4.9 H, Basophils (%) (Auto) 0.4, Neutrophils # (Auto) 5.4, Lymphocytes # ( Auto) 1.5, Monocytes # (Auto) 0.6, Eosinophils # (Auto) 0.4, Basophils # (Auto) 0.0 Microbiology Microbiology 05/12/16 Blood Culture - Preliminary, Resulted No growth after 24 hours . All specim... 05/11/16 Blood Culture - Preliminary, Resulted No growth after 24 hours . All specim... 05/12/16 Urine Culture, Received Pending AGNIESZKA HARDING MD May 13, 2016 11:31
[2016-05-13 14:00] VITALS: BP 134/63
[2016-05-13] MEDS: ALPRAZolam 0.25 MG TAB PO SCH ×3 (14:43→18:13)
[2016-05-13] MEDS: WARFARIN SOD 2.5 MG TAB PO SCH (16:32)
[2016-05-13] MEDS: ACETAMINOPHEN TAB 650MG DOSE (2X325MG) PO PRN (18:13)
[2016-05-13] MEDS: MIRTAZAPINE 15 MG TAB PO SCH (21:05)
[2016-05-13 22:00] VITALS: BP 151/60
[2016-05-14] MEDS: MEROPENEM INJ 1 GM in D5W MINI-BAG PLUS 100 ML IV SCH ×2 (02:52→15:09)
[2016-05-14 08:02] LABS: BASO % 0.2 % (0.0-1.0); EOS # 0.4 K/mm3 (0.0-0.50); EOS % 5.3 % (0.0-3.0); LARGE UNSTAINED CELL # 0.2 K/mm3 (0.0-0.4); LARGE UNSTAINED CELL % 2.4 % (0.0-4.0); LYMPH # 1.6 K/mm3 (1.5-4.5); LYMPH % 16.7 % (24.0-44.0); MEAN CORPUSCULAR HEMOGLOBIN 29.6 pg (27.0-33.0); MEAN CORPUSCULAR HGB CONC 31.8 g/dl (32.0-36.5); MEAN CORPUSCULAR VOLUME 93.2 fl (80.0-96.0); MONO # 0.5 K/mm3 (0.0-0.8); MONO % 5.8 % (0.0-5.0); NEUTROPHILS # 5.7 K/mm3 (1.8-7.7); NEUTROPHILS % 69.6 % (36.0-66.0); PLATELET COUNT, AUTOMATED 182 k/mm3 (150-450); WHITE BLOOD COUNT 8.2 K/mm3 (4.0-10.0)
[2016-05-14 08:24] LABS: INR 2.89
[2016-05-14 08:28] LABS: ANION GAP 8 MEQ/L (8-16); BLOOD UREA NITROGEN 9 MG/DL (7-18); CARBON DIOXIDE LEVEL 24 MEQ/L (21-32); CHLORIDE LEVEL 112 MEQ/L (98-107); GLOMERULAR FILTRATION RATE > 60.0 (>32); GLUCOSE, FASTING 78 MG/DL (83-110); POTASSIUM SERUM 4.4 MEQ/L (3.5-5.1); SODIUM LEVEL 144 MEQ/L (136-145)
[2016-05-14 08:29] LABS: ALBUMIN 2.2 GM/DL (3.2-5.2); ALBUMIN/GLOBULIN RATIO 0.73 (1.00-1.93); ALKALINE PHOSPHATASE 79 U/L (45-117); ALT/SGPT 14 U/L (12-78); AST/SGOT 15 U/L (15-37); BILIRUBIN,TOTAL 0.4 MG/DL (0.2-1.0); CALCIUM LEVEL 7.8 MG/DL (8.8-10.2); TOTAL PROTEIN 5.2 GM/DL (6.4-8.2)
[2016-05-14] MEDS: LANSOPRAZOLE SUSPENSION 30 MG/10 ML ORAL SYRINGE (FIRST-LANSOPRAZOLE) PO SCH ×2 (09:12→21:08)
[2016-05-14] MEDS: LACOSAMIDE 50 MG TAB (VIMPAT) PO SCH ×2 (09:13→21:08)
[2016-05-14] MEDS: LEVOTHYROXINE 0.075 MG TAB (75 MCG) PO SCH (09:13)
[2016-05-14] MEDS: ALPRAZolam 0.25 MG TAB PO SCH ×4 (09:13→19:43)
[2016-05-14] MEDS: LOPERAMIDE 2 MG CAP PO SCH ×3 (09:13→21:08)
[2016-05-14] MEDS: PINK BISMUTH SUSP 524MG/30ML ORAL SYRINGE PO SCH ×2 (09:14→21:08)
[2016-05-14 14:00] VITALS: BP 142/65
--- NOTE | 2016-05-14 14:06 | IPNPDOC ---
Subjective Date Seen The patient was seen on 05/14/16. Subjective Chief Complaint/HPI The patient is a 89-year-old female admitted with a reason for visit of Left Lower Lobe Pneumonia. Events since last encounter no complaints this am , had an episode of choking yesterday morning and after that did not had much oral intake , no fever or chills, sleeping comfortably not in any distress. Objective Physical Examination General Exam: Positive: No Acute Distress Eye Exam: Positive: Conjunctiva & lids normal, EOMI, PERRLA, Negative: Sclera icteric Neck Exam: Positive: Supple, Negative: JVD, thyromegaly Chest Exam: Positive: Normal air movement, Rales (left base) Heart Exam: Positive: Irregular Rhythm, Normal S1, Normal S2 Abdomen Exam: Positive: Normal bowel sounds, Soft, Negative: Hepatospenomegaly, Tenderness Extremity Exam: Positive: Normal pulses, Negative: Clubbing, Cyanosis, Edema Skin Exam: Positive: Nl turgor and temperature, Negative: Breakdown, Rash Assessment /Plan Problems (1) Left lower lobe pneumonia Status: Acute Problem Text: possibly aspiration pneumonia from silent aspiration from hiatal hernia and dialated esophagus. will continue with meropenum pending blood cultures. (2) Sliding hiatal hernia Status: Chronic Response to Treatment: Stable Problem Text: may be causing recurrent silent aspirations with aspiration pneumonitis presenting as febrile episodes now has developed pneumonia. will give ppi (3) Alzheimer's dementia Status: Chronic Problem Text: avanced, non verbal , on purred diet, bed bound, unable to move by herself , completely dependent for her adls (4) Abnormal urinalysis Status: Chronic Problem Text: Urine culture no growth. 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 Problem Text: continue coumadin Plan/VTE VTE Prophylaxis Ordered?: Yes VS, I&O, 24H, Fishbone Vital Signs/I&O Vital Signs Date Time Temp Pulse Resp B/P Pulse Ox O2 Delivery O2 Flow Rate FiO2 05/14/16 08:00 Nasal Cannula 2.0 05/13/16 22:00 97.5 92 18 151/60 97 I&O- Last 24 Hours up to 6 AM 05/14/16 05:59 Intake Total 270 ml Balance 270 ml Laboratory Data 24H LABS Laboratory Tests 2 05/14/16 07:49: Blood Urea Nitrogen 9, Creatinine 0.90, Sodium Level 144, Potassium Level 4.4, Chloride Level 112H, Carbon Dioxide Level 24, Calcium Level 7.8L, Aspartate Amino Transf (AST/SGOT) 15, Alanine Aminotransferase (ALT/SGPT) 14, Alkaline Phosphatase 79, Total Bilirubin 0.4, Total Protein 5.2L, Albumin 2.2L, Albumin/ Globulin Ratio 0.73L, Anion Gap 8, White Blood Count 8.2, Red Blood Count 3.37L , Hemoglobin 10.0L, Hematocrit 31.4L, Mean Corpuscular Volume 93.2, Mean Corpuscular Hemoglobin 29.6, Mean Corpuscular Hemoglobin Concent 31.8L, Red Cell Distribution Width 15.0H, Platelet Count 182, Neutrophils (%) (Auto) 69.6H , Lymphocytes (%) (Auto) 16.7L, Monocytes (%) (Auto) 5.8H, Eosinophils (%) (Auto ) 5.3H, Basophils (%) (Auto) 0.2, Neutrophils # (Auto) 5.7, Lymphocytes # (Auto ) 1.6, Monocytes # (Auto) 0.5, Eosinophils # (Auto) 0.4, Basophils # (Auto) 0.0 , Glomerular Filtration Rate > 60.0, Large Unclassified Cells # 0.2, Large Unclassified Cells % 2.4, Magnesium Level 2.0, Prothromb Time International Ratio 2.89, Prothrombin Time 30.3H CBC/BMP Laboratory Tests 05/14/16 07:49 Calcium Level 7.8 L, Aspartate Amino Transf (AST/SGOT) 15, Alanine Aminotransferase (ALT/SGPT) 14, Alkaline Phosphatase 79, Total Bilirubin 0.4, Total Protein 5.2 L, Albumin 2.2 L, Red Blood Count 3.37 L, Mean Corpuscular Volume 93.2, Mean Corpuscular Hemoglobin 29.6, Mean Corpuscular Hemoglobin Concent 31.8 L, Red Cell Distribution Width 15.0 H, Neutrophils (%) (Auto) 69.6 H, Lymphocytes (%) (Auto) 16.7 L, Monocytes (%) (Auto) 5.8 H, Eosinophils (%) ( Auto) 5.3 H, Basophils (%) (Auto) 0.2, Neutrophils # (Auto) 5.7, Lymphocytes # ( Auto) 1.6, Monocytes # (Auto) 0.5, Eosinophils # (Auto) 0.4, Basophils # (Auto) 0.0 Microbiology Microbiology 05/12/16 Blood Culture - Preliminary, Resulted No Growth after 48 hours. All Specime... 05/11/16 Blood Culture - Preliminary, Resulted No Growth after 48 hours. All Specime... 05/12/16 Urine Culture - Final, Complete AGNIESZKA HARDING MD May 14, 2016 14:06
[2016-05-14] MEDS: MIRTAZAPINE 15 MG TAB PO SCH (21:08)
[2016-05-14] MEDS: ACETAMINOPHEN TAB 650MG DOSE (2X325MG) PO PRN (21:13)
[2016-05-14 22:00] VITALS: BP 124/65
[2016-05-15] MEDS: MEROPENEM INJ 1 GM in D5W MINI-BAG PLUS 100 ML IV SCH ×2 (02:58→15:28)
[2016-05-15 06:00] VITALS: BP 118/58
[2016-05-15 08:28] LABS: BASO % 0.3 % (0.0-1.0); EOS # 0.5 K/mm3 (0.0-0.50); EOS % 7.3 % (0.0-3.0); LARGE UNSTAINED CELL # 0.2 K/mm3 (0.0-0.4); LARGE UNSTAINED CELL % 3.1 % (0.0-4.0); LYMPH # 1.8 K/mm3 (1.5-4.5); LYMPH % 22.3 % (24.0-44.0); MEAN CORPUSCULAR HEMOGLOBIN 29.7 pg (27.0-33.0); MEAN CORPUSCULAR HGB CONC 32.1 g/dl (32.0-36.5); MEAN CORPUSCULAR VOLUME 92.5 fl (80.0-96.0); MONO # 0.5 K/mm3 (0.0-0.8); MONO % 6.8 % (0.0-5.0); NEUTROPHILS # 4.3 K/mm3 (1.8-7.7); NEUTROPHILS % 60.3 % (36.0-66.0); PLATELET COUNT, AUTOMATED 193 k/mm3 (150-450); RED CELL DISTRIBUTION WIDTH 14.8 % (11.5-14.5); WHITE BLOOD COUNT 7.2 K/mm3 (4.0-10.0)
[2016-05-15 08:29] LABS: INR 2.9
[2016-05-15 08:35] LABS: ALBUMIN 2.2 GM/DL (3.2-5.2); ALBUMIN/GLOBULIN RATIO 0.69 (1.00-1.93); BILIRUBIN,TOTAL 0.3 MG/DL (0.2-1.0); CALCIUM LEVEL 7.9 MG/DL (8.8-10.2); CREATININE FOR GFR 1.04 MG/DL (0.55-1.02); GLOMERULAR FILTRATION RATE 53.2 (>32); POTASSIUM SERUM 4.2 MEQ/L (3.5-5.1); TOTAL PROTEIN 5.4 GM/DL (6.4-8.2)
[2016-05-15] MEDS: LOPERAMIDE 2 MG CAP PO SCH ×3 (09:07→20:32)
[2016-05-15] MEDS: ALPRAZolam 0.25 MG TAB PO SCH ×4 (09:08→18:58)
[2016-05-15] MEDS: LANSOPRAZOLE SUSPENSION 30 MG/10 ML ORAL SYRINGE (FIRST-LANSOPRAZOLE) PO SCH ×2 (09:08→20:32)
[2016-05-15] MEDS: LACOSAMIDE 50 MG TAB (VIMPAT) PO SCH ×2 (09:08→20:32)
[2016-05-15] MEDS: PINK BISMUTH SUSP 524MG/30ML ORAL SYRINGE PO SCH ×2 (09:08→20:32)
[2016-05-15] MEDS: LEVOTHYROXINE 0.075 MG TAB (75 MCG) PO SCH (09:08)
[2016-05-15 10:00] VITALS: BP 133/63
--- NOTE | 2016-05-15 12:33 | IPNPDOC ---
Subjective Date Seen The patient was seen on 05/15/16. Subjective Chief Complaint/HPI The patient is a 89-year-old female admitted with a reason for visit of Left Lower Lobe Pneumonia. Events since last encounter had a spike of low grade temp last night. also had reflux when she was sleeping noted by daughter, no cough activated. Objective Physical Examination General Exam: Positive: No Acute Distress Eye Exam: Positive: Conjunctiva & lids normal, EOMI, PERRLA, Negative: Sclera icteric Neck Exam: Positive: Supple, Negative: JVD, thyromegaly Chest Exam: Positive: Normal air movement, Rales (left base) Heart Exam: Positive: Irregular Rhythm, Normal S1, Normal S2 Abdomen Exam: Positive: Normal bowel sounds, Soft, Negative: Hepatospenomegaly, Tenderness Extremity Exam: Positive: Normal pulses, Negative: Clubbing, Cyanosis, Edema Skin Exam: Positive: Nl turgor and temperature, Negative: Breakdown, Rash Assessment /Plan Problems (1) Left lower lobe pneumonia Status: Acute Problem Text: possibly aspiration pneumonia from silent aspiration from hiatal hernia and dialated esophagus. will continue with meropenum pending blood cultures. (2) Sliding hiatal hernia Status: Chronic Response to Treatment: Stable Problem Text: may be causing recurrent silent aspirations with aspiration pneumonitis presenting as febrile episodes now has developed pneumonia. will give ppi (3) Alzheimer's dementia Status: Chronic Problem Text: avanced, non verbal , on purred diet, bed bound, unable to move by herself , completely dependent for her adls (4) Abnormal urinalysis Status: Chronic Problem Text: Urine culture no growth. 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 Problem Text: continue coumadin Plan/VTE VTE Prophylaxis Ordered?: Yes VS, I&O, 24H, Fishbone Vital Signs/I&O Vital Signs Date Time Temp Pulse Resp B/P Pulse Ox O2 Delivery O2 Flow Rate FiO2 05/15/16 10:00 98.3 69 14 133/63 92 Room Air 05/15/16 08:00 2.0 I&O- Last 24 Hours up to 6 AM 05/15/16 05:59 Intake Total 210 ml Balance 210 ml Laboratory Data 24H LABS Laboratory Tests 2 05/15/16 08:00: Blood Urea Nitrogen 12, Creatinine 1.04H, Sodium Level 142, Potassium Level 4.2 , Chloride Level 109H, Carbon Dioxide Level 27, Calcium Level 7.9L, Aspartate Amino Transf (AST/SGOT) 13L, Alanine Aminotransferase (ALT/SGPT) 12, Alkaline Phosphatase 72, Total Bilirubin 0.3, Total Protein 5.4L, Albumin 2.2L, Albumin/ Globulin Ratio 0.69L, Anion Gap 6L, White Blood Count 7.2, Red Blood Count 3.55L , Hemoglobin 10.5L, Hematocrit 32.8L, Mean Corpuscular Volume 92.5, Mean Corpuscular Hemoglobin 29.7, Mean Corpuscular Hemoglobin Concent 32.1, Red Cell Distribution Width 14.8H, Platelet Count 193, Neutrophils (%) (Auto) 60.3, Lymphocytes (%) (Auto) 22.3L, Monocytes (%) (Auto) 6.8H, Eosinophils (%) (Auto) 7.3H, Basophils (%) (Auto) 0.3, Neutrophils # (Auto) 4.3, Lymphocytes # (Auto) 1.8, Monocytes # (Auto) 0.5, Eosinophils # (Auto) 0.5, Basophils # (Auto) 0.0, Glomerular Filtration Rate 53.2, Large Unclassified Cells # 0.2, Large Unclassified Cells % 3.1, Magnesium Level 2.0, Prothromb Time International Ratio 2.90, Prothrombin Time 30.4H CBC/BMP Laboratory Tests 05/15/16 08:00 Calcium Level 7.9 L, Aspartate Amino Transf (AST/SGOT) 13 L, Alanine Aminotransferase (ALT/SGPT) 12, Alkaline Phosphatase 72, Total Bilirubin 0.3, Total Protein 5.4 L, Albumin 2.2 L, Red Blood Count 3.55 L, Mean Corpuscular Volume 92.5, Mean Corpuscular Hemoglobin 29.7, Mean Corpuscular Hemoglobin Concent 32.1, Red Cell Distribution Width 14.8 H, Neutrophils (%) (Auto) 60.3, Lymphocytes (%) (Auto) 22.3 L, Monocytes (%) (Auto) 6.8 H, Eosinophils (%) (Auto ) 7.3 H, Basophils (%) (Auto) 0.3, Neutrophils # (Auto) 4.3, Lymphocytes # (Auto ) 1.8, Monocytes # (Auto) 0.5, Eosinophils # (Auto) 0.5, Basophils # (Auto) 0.0 Microbiology Microbiology 05/12/16 Blood Culture - Preliminary, Resulted No Growth after 72 hours. All specime... 05/11/16 Blood Culture - Preliminary, Resulted No Growth after 72 hours. All specime... 05/12/16 Urine Culture - Final, Complete AGNIESZKA HARDING MD May 15, 2016 12:33
[2016-05-15 14:00] VITALS: BP 119/56
[2016-05-15] MEDS: WARFARIN SOD 2.5 MG TAB PO SCH (17:12)
[2016-05-15] MEDS: MIRTAZAPINE 15 MG TAB PO SCH (20:32)
[2016-05-15 22:00] VITALS: BP 110/64
[2016-05-16 02:00] VITALS: BP 115/65
[2016-05-16] MEDS: MEROPENEM INJ 1 GM in D5W MINI-BAG PLUS 100 ML IV SCH (03:08)
[2016-05-16 06:00] VITALS: BP 118/63
[2016-05-16] MEDS ORDERED: FIRS3SUS PO (06:10)
[2016-05-16] MEDS ORDERED: CLIN1CAP5 PO (06:10)
[2016-05-16 07:01] LABS: BASO % 0.2 % (0.0-1.0); EOS # 0.5 K/mm3 (0.0-0.50); EOS % 6.6 % (0.0-3.0); LARGE UNSTAINED CELL # 0.2 K/mm3 (0.0-0.4); LARGE UNSTAINED CELL % 2.2 % (0.0-4.0); LYMPH # 1.5 K/mm3 (1.5-4.5); LYMPH % 17.8 % (24.0-44.0); MEAN CORPUSCULAR HGB CONC 32.4 g/dl (32.0-36.5); MEAN CORPUSCULAR VOLUME 92.7 fl (80.0-96.0); MONO # 0.5 K/mm3 (0.0-0.8); MONO % 6.8 % (0.0-5.0); NEUTROPHILS # 4.9 K/mm3 (1.8-7.7); NEUTROPHILS % 66.5 % (36.0-66.0); PLATELET COUNT, AUTOMATED 215 k/mm3 (150-450); RED CELL DISTRIBUTION WIDTH 14.9 % (11.5-14.5); WHITE BLOOD COUNT 7.3 K/mm3 (4.0-10.0)
[2016-05-16 07:08] LABS: INR 3.17
[2016-05-16 07:51] LABS: ALBUMIN 2.3 GM/DL (3.2-5.2); ALBUMIN/GLOBULIN RATIO 0.85 (1.00-1.93); ALKALINE PHOSPHATASE 77 U/L (45-117); ALT/SGPT 10 U/L (12-78); ANION GAP 5 MEQ/L (8-16); AST/SGOT 12 U/L (15-37); BILIRUBIN,TOTAL 0.2 MG/DL (0.2-1.0); BLOOD UREA NITROGEN 13 MG/DL (7-18); CARBON DIOXIDE LEVEL 30 MEQ/L (21-32); CHLORIDE LEVEL 109 MEQ/L (98-107); CREATININE FOR GFR 0.87 MG/DL (0.55-1.02); GLOMERULAR FILTRATION RATE > 60.0 (>32); GLUCOSE, FASTING 79 MG/DL (83-110); MAGNESIUM LEVEL 1.9 MG/DL (1.8-2.4); POTASSIUM SERUM 4.2 MEQ/L (3.5-5.1); SODIUM LEVEL 144 MEQ/L (136-145)
[2016-05-16] MEDS: LEVOTHYROXINE 0.075 MG TAB (75 MCG) PO SCH (09:46)
[2016-05-16] MEDS: LOPERAMIDE 2 MG CAP PO SCH (09:47)
[2016-05-16] MEDS: PINK BISMUTH SUSP 524MG/30ML ORAL SYRINGE PO SCH (09:47)
[2016-05-16] MEDS: LACOSAMIDE 50 MG TAB (VIMPAT) PO SCH (09:47)
[2016-05-16] MEDS: LANSOPRAZOLE SUSPENSION 30 MG/10 ML ORAL SYRINGE (FIRST-LANSOPRAZOLE) PO SCH (09:47)
[2016-05-16] MEDS: ALPRAZolam 0.25 MG TAB PO SCH (09:47)
[2016-05-16] MEDS ORDERED: NEXI20GR PO (11:15)
--- NOTE | 2016-05-16 16:50 | DSES ---
DATE OF ADMISSION: 05/12/2016 DATE OF DISCHARGE: 05/16/2016 PRIMARY CARE PROVIDER: Dr. Josef Calderon DISCHARGE DIAGNOSES: 1. Aspiration pneumonia. 2. Dirty urinalysis with chronic urinary colonization. 3. History of deep vein thrombosis and pulmonary embolism, on Coumadin. 4. Advanced Alzheimer dementia, nonverbal and bedridden. 5. Asthma. 6. Seizure disorder. 7. Gastroesophageal reflux disease. 8. Hiatal hernia. 9. Esophageal dilatation. 10. Anxiety. 11. Hypothyroidism. 12. Chronic nocturnal hypoxia requiring oxygen at night. 13. History of Clostridium difficile colitis in December 2015. Finished vancomycin tapering course. 14. Urinary and stool incontinence with frequent liquid stools, thought to be related to antibiotics. DISCHARGE MEDICATIONS: - clindamycin 300 mg by mouth three times a day - lansoprazole 15 mg by mouth twice a day - Tylenol 500 mg by mouth every 4 hours as needed for pain or fever - albuterol sulfate 2.5 mg inhalation every 6 hours as needed for shortness of breath - Xanax 0.25 mg every 4 hours as needed - Pepto-Bismol 13 mL by mouth twice a day - Imodium 2 mg by mouth three times a day - Vimpat 100 mg by mouth twice a day - lactobacillus one tablet by mouth twice a day - Synthroid 75 mcg by mouth daily - mirtazapine 45 mg by mouth at bedtime - vitamins one tablet by mouth daily - Coumadin 2.5 mg as directed HOSPITAL COURSE: This is an 89-year-old female patient with advanced Alzheimer dementia, nonverbal, bed bound, brought into the hospital for febrile episode at home with maximal temperature of 100.6. Patient was found to have aspiration pneumonia on the left side with left lower lobe consolidation. She was also noted to have dilated esophagus and air-fluid levels and moderate sliding hiatal hernia. Patient has been recurrently admitted over the past 3 months with this febrile episode, and it is felt that she is probably having silent aspiration because of the hiatal hernia and the esophageal dilatations, causing her to have these episodes of fever, and this time she has developed an aspiration pneumonia. Patient was managed with meropenem, as she is allergic to penicillins. Patient did have one more febrile episode in the hospital with a maximal temperature of 100.5. Patient's blood cultures have been negative for 72 hours. Patient's urinalysis (UA) was dirty with white blood cells (WBC) of 78; however, her urine culture was negative, so it was felt that patient has chronic colonization rather than urinary tract infection. At present, patient is functional at baseline, stable vital signs, and is going to be discharged home in stable condition. PHYSICAL EXAMINATION: VITAL SIGNS: Temperature 98.3, pulse 69, respiratory rate 14, blood pressure 118/63, pulse oximetry 99% with 2 liters nasal cannula. GENERAL: Patient is sleeping. Not in any acute distress. Opening eyes when spoken to. HEENT: Normocephalic, atraumatic. Moist mucous membranes. Anicteric eyes. CHEST: There are basal crackles, more on the left than the right. CARDIOVASCULAR: S1, S2, regular. No murmur, rub, or gallop. ABDOMEN: Soft, nontender. Bowel sounds present. EXTREMITIES: No edema. LABORATORY DATA: WBC 7.3, hemoglobin 10.3, platelets 215. Sodium 144, potassium 4.2, chloride 109, bicarbonate 30, BUN 13, creatinine 0.8, glucose 79, calcium 8, magnesium 1.9. Liver function tests are normal. INR is 3.1. DISPOSITION: Patient is discharged home with activation of home services. DISCHARGE INSTRUCTIONS: Patient to followup with primary care provider in 2 weeks. Diet with honey-thickened fluid. Activity as tolerated.
== END 2016-05-16 12:25 | disposition home health service (06) | DRG 179 ==
LOC: M ED 23:27 → M ED INP 05-12 03:52 → M MS5PR 05-12 05:30
PROVIDERS: ADMIT Internal Medicine; ATTEND Internal Medicine Nephrology
DX: J69.0 Pneumonitis due to inhalation of food and vomit (principal); K21.9 Gastro-esophageal reflux disease without esophagitis; K44.9 Diaphragmatic hernia without obstruction or gangrene; F41.9 Anxiety disorder, unspecified; E03.9 Hypothyroidism, unspecified; G40.909 Epilepsy, unspecified, not intractable, without status epilepticus; R15.9 Full incontinence of feces; R32 Unspecified urinary incontinence; R09.02 Hypoxemia; R82.8 Abnormal findings on cytological and histological examination of urine; K22.8 Other specified diseases of esophagus; G30.9 Alzheimer's disease, unspecified; F02.80 Dementia in other diseases classified elsewhere, unspecified severity, without behavioral disturbance, psychotic disturbance, mood disturbance, and anxiety; Z86.711 Personal history of pulmonary embolism; Z86.718 Personal history of other venous thrombosis and embolism; Z99.81 Dependence on supplemental oxygen; Z79.01 Long term (current) use of anticoagulants; Z88.0 Allergy status to penicillin; Z88.6 Allergy status to analgesic agent; Z88.1 Allergy status to other antibiotic agents; Z88.8 Allergy status to other drugs, medicaments and biological substances; Z91.018 Allergy to other foods; Z90.49 Acquired absence of other specified parts of digestive tract; Z79.899 Other long term (current) drug therapy

== ENCOUNTER 2016-05-17 23:11 | Inpatient (IN) | payer MEDICARE, MEDICAID ==
[~2016-05-17] VITALS: Ht 152.4 cm; Wt 53.3 kg
[~2016-05-17 23:11] MED LIST changes: +CLIN1CAP5 PO; -COLA100C PO; +COLA100C3 PO; +FIRS3SUS PO; +IMOD2CAP PO; +NEXI20GR PO; +PEPT262S PO
[2016-05-18] MEDS ORDERED: IPRATROPIUM 0.5MG/ALBUTEROL 2.5MG INH SOL UD 3ML (DUONEB)(J7620) NEB PRN
[2016-05-18] MEDS ORDERED: NS 500 ML IV ONE
[2016-05-18] MEDS ORDERED: IMIPENEM/CILASTATIN 500 MG in D5W MINI-BAG PLUS 100 ML IV ONE ×2
[2016-05-18] MEDS ORDERED: ACETAMINOPHEN TAB 650MG DOSE (2X325MG) PO ONE (00:30)
[2016-05-18 00:35] LABS: BASO % 0.2 % (0.0-1.0); EOS # 0.6 K/mm3 (0.0-0.50); EOS % 4.8 % (0.0-3.0); LARGE UNSTAINED CELL # 0.2 K/mm3 (0.0-0.4); LARGE UNSTAINED CELL % 1.5 % (0.0-4.0); LYMPH # 1.2 K/mm3 (1.5-4.5); LYMPH % 9.2 % (24.0-44.0); MEAN CORPUSCULAR HEMOGLOBIN 29.5 pg (27.0-33.0); MEAN CORPUSCULAR HGB CONC 32.3 g/dl (32.0-36.5); MEAN CORPUSCULAR VOLUME 91.5 fl (80.0-96.0); MONO # 0.6 K/mm3 (0.0-0.8); MONO % 4.6 % (0.0-5.0); NEUTROPHILS # 10.1 K/mm3 (1.8-7.7); NEUTROPHILS % 79.8 % (36.0-66.0); PLATELET COUNT, AUTOMATED 221 k/mm3 (150-450); RED CELL DISTRIBUTION WIDTH 14.7 % (11.5-14.5); VENOUS BASE EXCESS 1.5 (-2.0-2.0); VENOUS PARTIAL PRESSURE CO2 47.6 mmHg (38.0-50.0); VENOUS PARTIAL PRESSURE O2 43.6 mmHg (30.0-50.0); VENOUS STANDARD HCO3 25.4 MEQ/L; VENOUS TOTAL CO2 28.7 MEQ/L (24.0-28.0); WHITE BLOOD COUNT 12.7 K/mm3 (4.0-10.0)
--- NOTE | 2016-05-18 00:40 | REPUSA ---
CT of the chest without contrast Clinical statement: cough. Technique: Multiple axial CT images were obtained with 5 mm cuts through the chest without administra tion of contrast. Comparison: 05/12/2016.. Findings: There is no thoracic lymphadenopathy. The visualized portions of the thyroid gland is unrem arkable. The heart is enlarged. There is a tiny pericardial effusion. The left lower lobe consolidati on has resolved. A small left-sided pleural effusion remains. Linear atelectasis remains in the left lower lobe. Limited imaging of the upper abdomen does not demonstrate any acute abnormalities. There are no suspicious osseous lesions. Chronic compression fractures at L3 and L4 with scoliotic changes are noted. Impression: 1. Almost complete resolution of the left lower lobe consolidation. Small left lower lobe pleural eff usion with left lower lobe atelectasis remains. 2. Stable cardiomegaly with tiny pericardial effusion. 3. Scoliosis with compression fractures of the lumbar spine are unchanged.
[2016-05-18] MEDS ORDERED: ACETAMINOPHEN 650 MG SUPP As Ordered ONE (00:58)
[2016-05-18 00:59] LABS: ANION GAP 9 MEQ/L (8-16); BLOOD UREA NITROGEN 18 MG/DL (7-18); CALCIUM LEVEL 8.6 MG/DL (8.8-10.2); CARBON DIOXIDE LEVEL 27 MEQ/L (21-32); CHLORIDE LEVEL 106 MEQ/L (98-107); CREATININE FOR GFR 0.86 MG/DL (0.55-1.02); GLOMERULAR FILTRATION RATE > 60.0 (>32); GLUCOSE, FASTING 86 MG/DL (83-110); SODIUM LEVEL 142 MEQ/L (136-145)
[2016-05-18] MEDS ORDERED: ONDANSETRON 4MG/2ML VIAL (J2405) IV PRN (02:30)
[2016-05-18] MEDS ORDERED: NEXI20CA PO (02:33)
[2016-05-18] MEDS ORDERED: CLIN1CAP5 PO (02:33)
--- NOTE | 2016-05-18 03:05 | HPEPDOC ---
Medical History and Physical Date of Admission 05/18/16 History and Physical PRIMARY CARE PROVIDER: ATTENDING: Dr. Jamila Tabares CHIEF COMPLAINT: Fevers HISTORY OF PRESENT ILLNESS: This is a 82-year-old female with a past medical history of CVA, DVT/PE on Coumadin, advanced Alzheimer's disease bedridden and nonverbal for the most part , hypothyroidism nocturnal hypoxia on O2, history of C. difficile who was recently discharged after being treated for left-sided pneumonia comes in with daughter with complaints of fevers. Patient was recently discharged on clindamycin which she has been taking. Patient been spiking MAXIMUM TEMPERATURE of 102.8. Had also been congested with decreased by mouth intake. Patient has apparently been choking and coughing on a honey thickened diet. No vomiting, complaints of abdominal pain, diarrhea. No new rashes. PAST MEDICAL HISTORY: As per HPI PAST SURGICAL HISTORY: Back surg x2, cholecystectomy. SOCIAL HISTORY: No tobacco. alcohol, illicit drugs. Lives with daughter. FAMILY HISTORY: Non contributory ALLERGIES: Please see below. REVIEW OF SYSTEMS: Sleeping, non verbal. Unable to obtain. HOME MEDICATIONS: Please see below. PHYSICAL EXAMINATION: Vitals: (see below) General: No acute distress, laying comfortably in bed. HEENT: Moist mucous membranes. Neck: No JVD or lymphadenopathy Cardiac: RRR, No murmurs Pulm: Coarse crackles b/l bases. No wheezing, rhonchi Abd: NT/ND + BS Ext: No edema or cyanosis LABORATORY DATA: See below. IMAGING: CT Chest 05/18/16 Impression: 1. Almost complete resolution of the left lower lobe consolidation. Small left lower lobe pleural effusion with left lower lobe atelectasis remains. 2. Stable cardiomegaly with tiny pericardial effusion. 3. Scoliosis with compression fractures of the lumbar spine are unchanged. MICROBIOLOGY: Please see below. ASSESSMENT/PLAN: 1. Fevers- likely secondary to recurrent aspiration versus urinary tract infection. We'll check a urinalysis as well as urine culture. CT of the chest noting that the pneumonia is resolving. We'll place patient on meropenem. Blood cultures sent. Speech therapy has been consulted as the patient has been choking on honey thickened diet. 2. 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 Advanced Alzheimer's, bedridden, minimally verbal 4. Hypothyroidism- continue Synthroid 5. Seizure disorder- continue home meds 6. History of CVA Due to prophylaxis enoxaparin Patient will be followed by Dr. Jamila Tabares starting 05/18/69 7 AM. Vital Signs Vital Signs Date Time Temp Pulse Resp B/P Pulse Ox O2 Delivery O2 Flow Rate FiO2 05/17/16 23:12 100.9 98 18 131/62 96 Room Air Laboratory Data Labs 24H Laboratory Tests 2 05/18/16 00:26: Anion Gap 9, White Blood Count 12.7H, Red Blood Count 3.82L, Hemoglobin 11.3L, Hematocrit 34.9L, Mean Corpuscular Volume 91.5, Mean Corpuscular Hemoglobin 29.5 , Mean Corpuscular Hemoglobin Concent 32.3, Red Cell Distribution Width 14.7H, Platelet Count 221, Neutrophils (%) (Auto) 79.8H, Lymphocytes (%) (Auto) 9.2L, Monocytes (%) (Auto) 4.6, Eosinophils (%) (Auto) 4.8H, Basophils (%) (Auto) 0.2 , Neutrophils # (Auto) 10.1H, Lymphocytes # (Auto) 1.2L, Monocytes # (Auto) 0.6 , Eosinophils # (Auto) 0.6H, Basophils # (Auto) 0.0, Blood Gas Bicarbonate Standard 25.4, Blood Urea Nitrogen 18, Creatinine 0.86, Sodium Level 142, Potassium Level 5.0, Chloride Level 106, Carbon Dioxide Level 27, Calcium Level 8.6L, Glomerular Filtration Rate > 60.0, Lactic Acid Level 1.4, Large Unclassified Cells # 0.2, Large Unclassified Cells % 1.5, Venous Blood Base Excess 1.5, Venous Blood pH 7.376, Venous Blood Partial Pressure CO2 47.6, Venous Blood Partial Pressure O2 43.6, Venous Blood Total Carbon Dioxide 28.7H, Venous Blood HCO3 27.3H, Venous Blood Oxygen Saturation 76.0 CBC/BMP Laboratory Tests 05/18/16 00:26 Calcium Level 8.6 L, Red Blood Count 3.82 L, Mean Corpuscular Volume 91.5, Mean Corpuscular Hemoglobin 29.5, Mean Corpuscular Hemoglobin Concent 32.3, Red Cell Distribution Width 14.7 H, Neutrophils (%) (Auto) 79.8 H, Lymphocytes (%) (Auto ) 9.2 L, Monocytes (%) (Auto) 4.6, Eosinophils (%) (Auto) 4.8 H, Basophils (%) ( Auto) 0.2, Neutrophils # (Auto) 10.1 H, Lymphocytes # (Auto) 1.2 L, Monocytes # (Auto) 0.6, Eosinophils # (Auto) 0.6 H, Basophils # (Auto) 0.0 Microbiology Microbiology 05/18/16 Blood Culture, Received Pending 05/18/16 Blood Culture, Received Pending Home Medications Scheduled ( Vitamin 27-0.8 mg) 1 Tab Tab 1 TAB PO DAILY (Imodium A-D) 2 Mg Cap 2 MG PO TID Alprazolam (Xanax) 0.25 Mg Tab 0.25 MG PO Q4H AT 0900, 1430, 1700, AND 1900 Bismuth Subsalicylate (Pepto-Bismol) 262 Mg/15 Ml Bety 30 ML PO BID Clindamycin Hcl (Clindamycin HCl) 150 Mg Cap 300 MG PO TID Esomeprazole Magnesium Trihydr (Nexium) 20 Mg Cap 20 MG PO BID Lacosamide (Vimpat) 100 Mg Tab 100 MG PO BID Lactobacillus Acidophilus (Bacid) 1 Tab Tab 1 TAB PO BID Levothyroxine Sodium (Synthroid) 75 Mcg Tab 75 MCG PO DAILY Mirtazapine (Mirtazapine) 45 Mg Tab 45 MG PO QHS Warfarin Sod (Warfarin Sodium) 2.5 Mg Tab 2.5 MG PO ASDIRECTED 6xW: Thurs, Fri, Sat, Sun, Mon, Tues. Scheduled PRN Acetaminophen (Tylenol Extra Strength) 500 Mg Tab 500 MG PO Q4H PRN PRN PAIN / FEVER Albuterol Sulfate (Albuterol Sulfate) 2.5 Mg/3 Ml Nebu 2.5 MG INH Q6HP PRN PRN SHORTNESS OF BREATH Allergies Coded Allergies: Penicillins (Verified Allergy, Severe, ANAPHYLAXIS w/ PCN; HAS TOLERATED ROCEPHIN in the PAST, 05/11/16) Metronidazole (Verified Allergy, Intermediate, HIVES, 05/11/16) Moxifloxacin (Verified Allergy, Intermediate, spastic tremors, 05/11/16) Fluconazole (Verified Allergy, Unknown, 05/11/16) Pineapple (Verified Allergy, Unknown, CANNED ONLY, FRESH IS OK, 05/11/16) Erythromycin (Verified Adverse Reaction, Mild, GASTROINTESTINAL, 05/11/16) Aspirin (Verified Adverse Reaction, Unknown, TOLD TO AVOID DUE TO ASTHMA, 05/11/16) GIANFRANCO ATWOOD MD May 18, 2016 03:05
[2016-05-18] MEDS ORDERED: ALPRAZolam 0.25 MG TAB PO SCH (03:45)
[2016-05-18 04:00] VITALS: BP 168/71
[2016-05-18] MEDS: NS 1,000 ML IV SCH ×2 (04:10→10:16)
[2016-05-18] MEDS: LEVOTHYROXINE 0.075 MG TAB (75 MCG) PO SCH (06:00)
[2016-05-18] MEDS ORDERED: MEROPENEM INJ 1 GM in D5W MINI-BAG PLUS 100 ML IV SCH (06:00)
[2016-05-18 06:05] LABS: BASO % 0.2 % (0.0-1.0); EOS # 0.7 K/mm3 (0.0-0.50); EOS % 6.9 % (0.0-3.0); LARGE UNSTAINED CELL # 0.2 K/mm3 (0.0-0.4); LYMPH # 1.3 K/mm3 (1.5-4.5); LYMPH % 13.6 % (24.0-44.0); MEAN CORPUSCULAR HEMOGLOBIN 29.3 pg (27.0-33.0); MEAN CORPUSCULAR HGB CONC 32.6 g/dl (32.0-36.5); MEAN CORPUSCULAR VOLUME 89.8 fl (80.0-96.0); MONO # 0.5 K/mm3 (0.0-0.8); MONO % 5.5 % (0.0-5.0); NEUTROPHILS # 6.9 K/mm3 (1.8-7.7); NEUTROPHILS % 71.8 % (36.0-66.0); PLATELET COUNT, AUTOMATED 180 k/mm3 (150-450); RED CELL DISTRIBUTION WIDTH 14.8 % (11.5-14.5); WHITE BLOOD COUNT 9.7 K/mm3 (4.0-10.0)
[2016-05-18 06:13] LABS: INR 3.41
[2016-05-18 06:27] LABS: ALBUMIN 2.1 GM/DL (3.2-5.2); ALKALINE PHOSPHATASE 65 U/L (45-117); ALT/SGPT 10 U/L (12-78); ANION GAP 7 MEQ/L (8-16); AST/SGOT 14 U/L (15-37); BILIRUBIN,TOTAL 0.4 MG/DL (0.2-1.0); BLOOD UREA NITROGEN 15 MG/DL (7-18); CALCIUM LEVEL 7.8 MG/DL (8.8-10.2); CARBON DIOXIDE LEVEL 25 MEQ/L (21-32); CHLORIDE LEVEL 111 MEQ/L (98-107); GLOMERULAR FILTRATION RATE > 60.0 (>32); GLUCOSE, FASTING 84 MG/DL (83-110); MAGNESIUM LEVEL 1.9 MG/DL (1.8-2.4); PHOSPHORUS LEVEL 2.4 MG/DL (2.5-4.9); POTASSIUM SERUM 3.8 MEQ/L (3.5-5.1); SODIUM LEVEL 143 MEQ/L (136-145); TOTAL PROTEIN 5.1 GM/DL (6.4-8.2)
[2016-05-18] MEDS ORDERED: PANTOPRAZOLE 40MG TAB (PROTONIX) PO SCH (09:00)
[2016-05-18] MEDS: LACOSAMIDE 50 MG TAB (VIMPAT) PO SCH ×2 (10:15→21:39)
[2016-05-18] MEDS: LACTOBACILLUS ACIDOPHILUS CAP (BACID) PO SCH ×2 (10:15→21:39)
[2016-05-18] MEDS: ALPRAZolam 0.25 MG TAB PO SCH ×4 (10:15→19:00)
[2016-05-18] MEDS: LOPERAMIDE 2 MG CAP PO SCH ×3 (10:16→21:39)
[2016-05-18] MEDS: WARFARIN SOD 2.5 MG TAB PO SCH (17:22)
[2016-05-18] MEDS ORDERED: OMEPRAZOLE 20 MG CAP PO SCH (21:00)
[2016-05-18] MEDS: ACETAMINOPHEN TAB 650MG DOSE (2X325MG) PO PRN (21:38)
[2016-05-18] MEDS: MIRTAZAPINE 15 MG TAB PO SCH (21:39)
[2016-05-18 22:00] VITALS: BP 134/60
[2016-05-19 06:00] VITALS: BP 120/58
[2016-05-19] MEDS: LEVOTHYROXINE 0.075 MG TAB (75 MCG) PO SCH (06:30)
[2016-05-19 06:43] LABS: BASO % 0.3 % (0.0-1.0); EOS # 0.7 K/mm3 (0.0-0.50); EOS % 9.2 % (0.0-3.0); LARGE UNSTAINED CELL # 0.1 K/mm3 (0.0-0.4); LARGE UNSTAINED CELL % 1.7 % (0.0-4.0); LYMPH % 12.8 % (24.0-44.0); MEAN CORPUSCULAR HEMOGLOBIN 29.6 pg (27.0-33.0); MEAN CORPUSCULAR HGB CONC 32.3 g/dl (32.0-36.5); MEAN CORPUSCULAR VOLUME 91.6 fl (80.0-96.0); MONO # 0.4 K/mm3 (0.0-0.8); MONO % 5.4 % (0.0-5.0); NEUTROPHILS # 5.6 K/mm3 (1.8-7.7); NEUTROPHILS % 70.6 % (36.0-66.0); PLATELET COUNT, AUTOMATED 217 k/mm3 (150-450); RED CELL DISTRIBUTION WIDTH 14.8 % (11.5-14.5); WHITE BLOOD COUNT 7.9 K/mm3 (4.0-10.0)
[2016-05-19 06:49] LABS: INR 3.13
[2016-05-19 07:04] LABS: ALBUMIN 2.2 GM/DL (3.2-5.2); ALBUMIN/GLOBULIN RATIO 0.71 (1.00-1.93); ALKALINE PHOSPHATASE 67 U/L (45-117); ALT/SGPT 10 U/L (12-78); ANION GAP 7 MEQ/L (8-16); AST/SGOT 14 U/L (15-37); BILIRUBIN,TOTAL 0.5 MG/DL (0.2-1.0); BLOOD UREA NITROGEN 15 MG/DL (7-18); CALCIUM LEVEL 8.1 MG/DL (8.8-10.2); CARBON DIOXIDE LEVEL 25 MEQ/L (21-32); CHLORIDE LEVEL 110 MEQ/L (98-107); CREATININE FOR GFR 0.75 MG/DL (0.55-1.02); GLOMERULAR FILTRATION RATE > 60.0 (>32); GLUCOSE, FASTING 87 MG/DL (83-110); SODIUM LEVEL 142 MEQ/L (136-145); TOTAL PROTEIN 5.3 GM/DL (6.4-8.2)
[2016-05-19] MEDS: SUCRALFATE SUSP 1GM/10ML UD PO SCH ×3 (07:30→16:38)
[2016-05-19] MEDS: LACTOBACILLUS ACIDOPHILUS CAP (BACID) PO SCH ×2 (08:47→20:31)
[2016-05-19] MEDS: LACOSAMIDE 50 MG TAB (VIMPAT) PO SCH ×2 (08:47→20:31)
[2016-05-19] MEDS: LOPERAMIDE 2 MG CAP PO SCH ×3 (08:47→20:31)
[2016-05-19] MEDS: ALPRAZolam 0.25 MG TAB PO SCH ×4 (09:00→17:38)
[2016-05-19] MEDS: LANSOPRAZOLE SUSPENSION 30 MG/10 ML ORAL SYRINGE (FIRST-LANSOPRAZOLE) PO SCH ×2 (09:00→20:29)
--- NOTE | 2016-05-19 09:11 | ECGEPIP ---
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
--- NOTE | 2016-05-19 10:10 | IPNPDOC ---
Subjective Date Seen The patient was seen on 05/19/16. Subjective Chief Complaint/HPI The patient is a 89-year-old female admitted with a reason for visit of Pneumonia. Events since last encounter patient back to the hospital in 48 hours after discharge for recurrence of febrile episode. At home patients rectal temp is measured and it had a t max of 101.8, repeat CT of the chest showed almost complete resolution of the pneumonia. pateint had finished 7 days of antibiotics so antibiotics have now been discontinued. Objective Physical Examination General Exam: Positive: No Acute Distress Eye Exam: Positive: Conjunctiva & lids normal, PERRLA ENT Exam: Positive: Atraumatic, Mucous membr. moist/pink, Pharynx Normal Neck Exam: Positive: Supple, Negative: JVD, thyromegaly Chest Exam: Positive: Clear to auscultation Heart Exam: Positive: Normal S1, Normal S2, Rate Normal, Regular Rhythm, Negative: Murmurs, Rubs Abdomen Exam: Positive: Normal bowel sounds, Soft, Negative: Hepatospenomegaly, Tenderness Extremity Exam: Positive: Normal pulses, Negative: Clubbing, Cyanosis, Edema Assessment /Plan Problems (1) Fever Status: Acute Problem Text: reccurent febrile episodes thought to be due to recurrent aspiration episodes. Pateint recently treated for aspiration pneumonia and discharged 2 days ago with oral clindamycin. she has now completed the course of treatment for the aspiration pneumonia, ct chest showed pneumonia almost resolved so antibiotics were stopped. (2) Aspiration into airway Status: Chronic Problem Text: discussed with Micelle regarding the placement of gastro jejunostomy feeding tube. she is going to discuss it with her brother. 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 Plan/VTE VTE Prophylaxis Ordered?: Yes VS, I&O, 24H, Fishbone Vital Signs/I&O Vital Signs Date Time Temp Pulse Resp B/P Pulse Ox O2 Delivery O2 Flow Rate FiO2 05/19/16 06:00 98.8 76 18 120/58 97 Nasal Cannula 2.0 I&O- Last 24 Hours up to 6 AM 05/19/16 05:59 Intake Total 260 ml Balance 260 ml Laboratory Data 24H LABS Laboratory Tests 2 05/19/16 06:18: Blood Urea Nitrogen 15, Creatinine 0.75, Sodium Level 142, Potassium Level 4.0, Chloride Level 110H, Carbon Dioxide Level 25, Calcium Level 8.1L, Aspartate Amino Transf (AST/SGOT) 14L, Alanine Aminotransferase (ALT/SGPT) 10L, Alkaline Phosphatase 67, Total Bilirubin 0.5, Total Protein 5.3L, Albumin 2.2L, Albumin/ Globulin Ratio 0.71L, Anion Gap 7L, White Blood Count 7.9, Red Blood Count 3.31L , Hemoglobin 9.8L, Hematocrit 30.4L, Mean Corpuscular Volume 91.6, Mean Corpuscular Hemoglobin 29.6, Mean Corpuscular Hemoglobin Concent 32.3, Red Cell Distribution Width 14.8H, Platelet Count 217, Neutrophils (%) (Auto) 70.6H, Lymphocytes (%) (Auto) 12.8L, Monocytes (%) (Auto) 5.4H, Eosinophils (%) (Auto) 9.2H, Basophils (%) (Auto) 0.3, Neutrophils # (Auto) 5.6, Lymphocytes # (Auto) 1.0L, Monocytes # (Auto) 0.4, Eosinophils # (Auto) 0.7H, Basophils # (Auto) 0.0 , C-Reactive Protein, Quantitative 5.56H, Glomerular Filtration Rate > 60.0, Large Unclassified Cells # 0.1, Large Unclassified Cells % 1.7, Prothromb Time International Ratio 3.13, Prothrombin Time 32.2H CBC/BMP Laboratory Tests 05/19/16 06:18 Calcium Level 8.1 L, Aspartate Amino Transf (AST/SGOT) 14 L, Alanine Aminotransferase (ALT/SGPT) 10 L, Alkaline Phosphatase 67, Total Bilirubin 0.5, Total Protein 5.3 L, Albumin 2.2 L, Red Blood Count 3.31 L, Mean Corpuscular Volume 91.6, Mean Corpuscular Hemoglobin 29.6, Mean Corpuscular Hemoglobin Concent 32.3, Red Cell Distribution Width 14.8 H, Neutrophils (%) (Auto) 70.6 H , Lymphocytes (%) (Auto) 12.8 L, Monocytes (%) (Auto) 5.4 H, Eosinophils (%) ( Auto) 9.2 H, Basophils (%) (Auto) 0.3, Neutrophils # (Auto) 5.6, Lymphocytes # ( Auto) 1.0 L, Monocytes # (Auto) 0.4, Eosinophils # (Auto) 0.7 H, Basophils # ( Auto) 0.0 Microbiology Microbiology 05/18/16 Blood Culture - Preliminary, Resulted No growth after 24 hours . All specim... 05/18/16 Blood Culture - Preliminary, Resulted No growth after 24 hours . All specim... AGNIESZKA HARDING MD May 19, 2016 10:10
[2016-05-19] MEDS: IPRATROPIUM 0.5MG/ALBUTEROL 2.5MG INH SOL UD 3ML (DUONEB)(J7620) NEB PRN (11:27)
[2016-05-19 14:00] VITALS: BP 114/57
[2016-05-19] MEDS: MIRTAZAPINE 15 MG TAB PO SCH (20:30)
[2016-05-19] MEDS: ACETAMINOPHEN TAB 650MG DOSE (2X325MG) PO PRN (20:31)
[2016-05-19 22:00] VITALS: BP 139/64
[2016-05-20 06:00] VITALS: BP 83/46
[2016-05-20] MEDS: LEVOTHYROXINE 0.075 MG TAB (75 MCG) PO SCH (06:36)
[2016-05-20 06:50] VITALS: BP 110/58
[2016-05-20 07:16] LABS: BASO % 0.4 % (0.0-1.0); EOS # 0.6 K/mm3 (0.0-0.50); EOS % 10.5 % (0.0-3.0); LARGE UNSTAINED CELL # 0.1 K/mm3 (0.0-0.4); LARGE UNSTAINED CELL % 2.2 % (0.0-4.0); LYMPH # 1.2 K/mm3 (1.5-4.5); LYMPH % 20.5 % (24.0-44.0); MEAN CORPUSCULAR HEMOGLOBIN 29.4 pg (27.0-33.0); MEAN CORPUSCULAR HGB CONC 31.9 g/dl (32.0-36.5); MEAN CORPUSCULAR VOLUME 92.2 fl (80.0-96.0); MONO # 0.4 K/mm3 (0.0-0.8); MONO % 6.7 % (0.0-5.0); NEUTROPHILS # 3.6 K/mm3 (1.8-7.7); NEUTROPHILS % 59.8 % (36.0-66.0); PLATELET COUNT, AUTOMATED 228 k/mm3 (150-450); RED CELL DISTRIBUTION WIDTH 14.7 % (11.5-14.5); WHITE BLOOD COUNT 5.9 K/mm3 (4.0-10.0)
[2016-05-20 07:18] LABS: INR 3.24
[2016-05-20 07:32] LABS: ALBUMIN 2.1 GM/DL (3.2-5.2); ALBUMIN/GLOBULIN RATIO 0.68 (1.00-1.93); BILIRUBIN,TOTAL 0.3 MG/DL (0.2-1.0); CALCIUM LEVEL 8.3 MG/DL (8.8-10.2); CREATININE FOR GFR 0.97 MG/DL (0.55-1.02); GLOMERULAR FILTRATION RATE 57.7 (>32); POTASSIUM SERUM 4.5 MEQ/L (3.5-5.1); TOTAL PROTEIN 5.2 GM/DL (6.4-8.2)
[2016-05-20] MEDS: SUCRALFATE SUSP 1GM/10ML UD PO SCH ×4 (09:53→17:12)
[2016-05-20] MEDS: LOPERAMIDE 2 MG CAP PO SCH ×3 (09:53→21:11)
[2016-05-20] MEDS: ALPRAZolam 0.25 MG TAB PO SCH ×4 (09:53→18:54)
[2016-05-20] MEDS: LANSOPRAZOLE SUSPENSION 30 MG/10 ML ORAL SYRINGE (FIRST-LANSOPRAZOLE) PO SCH ×2 (09:53→21:10)
[2016-05-20] MEDS: LACTOBACILLUS ACIDOPHILUS CAP (BACID) PO SCH ×2 (09:53→21:10)
[2016-05-20] MEDS: LACOSAMIDE 50 MG TAB (VIMPAT) PO SCH ×2 (09:53→21:10)
[2016-05-20] MEDS: IPRATROPIUM 0.5MG/ALBUTEROL 2.5MG INH SOL UD 3ML (DUONEB)(J7620) NEB PRN (10:22)
--- NOTE | 2016-05-20 13:39 | IPNPDOC ---
Subjective Date Seen The patient was seen on 05/20/16. Subjective Chief Complaint/HPI The patient is a 89-year-old female admitted with a reason for visit of Pneumonia. General: Reports: ROS Unobtainable Objective Physical Examination General Exam: Positive: No Acute Distress Eye Exam: Positive: Conjunctiva & lids normal, PERRLA ENT Exam: Positive: Atraumatic, Mucous membr. moist/pink, Pharynx Normal Neck Exam: Positive: Supple, Negative: JVD, thyromegaly Chest Exam: Positive: Clear to auscultation Heart Exam: Positive: Normal S1, Normal S2, Rate Normal, Regular Rhythm, Negative: Murmurs, Rubs Abdomen Exam: Positive: Normal bowel sounds, Soft, Negative: Hepatospenomegaly, Tenderness Extremity Exam: Positive: Normal pulses, Negative: Clubbing, Cyanosis, Edema Assessment /Plan Problems (1) Fever Status: Acute Problem Text: reccurent febrile episodes thought to be due to recurrent aspiration episodes. Pateint recently treated for aspiration pneumonia and discharged for 24 hours prior to readmission with oral clindamycin. she has now completed the course of treatment for the aspiration pneumonia, ct chest showed pneumonia almost resolved so antibiotics were stopped. the option of feeding tube was discussed with daughter who is considering it (2) Aspiration into airway Status: Chronic Problem Text: discussed with daughter regarding the placement of gastro jejunostomy feeding tube. 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 Plan/VTE VTE Prophylaxis Ordered?: Yes VS, I&O, 24H, Fishbone Vital Signs/I&O Vital Signs Date Time Temp Pulse Resp B/P Pulse Ox O2 Delivery O2 Flow Rate FiO2 05/20/16 09:00 Room Air 05/20/16 06:50 110/58 05/20/16 06:00 98.5 74 17 95 2.0 I&O- Last 24 Hours up to 6 AM 05/20/16 05:59 Intake Total 840 ml Balance 840 ml Laboratory Data 24H LABS Laboratory Tests 2 05/20/16 06:42: Blood Urea Nitrogen 15, Creatinine 0.97, Sodium Level 142, Potassium Level 4.5, Chloride Level 110H, Carbon Dioxide Level 27, Calcium Level 8.3L, Aspartate Amino Transf (AST/SGOT) 14L, Alanine Aminotransferase (ALT/SGPT) 10L, Alkaline Phosphatase 63, Total Bilirubin 0.3, Total Protein 5.2L, Albumin 2.1L, Albumin/ Globulin Ratio 0.68L, Anion Gap 5L, White Blood Count 5.9, Red Blood Count 3.18L , Hemoglobin 9.3L, Hematocrit 29.3L, Mean Corpuscular Volume 92.2, Mean Corpuscular Hemoglobin 29.4, Mean Corpuscular Hemoglobin Concent 31.9L, Red Cell Distribution Width 14.7H, Platelet Count 228, Neutrophils (%) (Auto) 59.8, Lymphocytes (%) (Auto) 20.5L, Monocytes (%) (Auto) 6.7H, Eosinophils (%) (Auto) 10.5H, Basophils (%) (Auto) 0.4, Neutrophils # (Auto) 3.6, Lymphocytes # (Auto) 1.2L, Monocytes # (Auto) 0.4, Eosinophils # (Auto) 0.6H, Basophils # (Auto) 0.0 , C-Reactive Protein, Quantitative 3.56H, Glomerular Filtration Rate 57.7, Large Unclassified Cells # 0.1, Large Unclassified Cells % 2.2, Prothromb Time International Ratio 3.24, Prothrombin Time 33.1H CBC/BMP Laboratory Tests 05/20/16 06:42 Calcium Level 8.3 L, Aspartate Amino Transf (AST/SGOT) 14 L, Alanine Aminotransferase (ALT/SGPT) 10 L, Alkaline Phosphatase 63, Total Bilirubin 0.3, Total Protein 5.2 L, Albumin 2.1 L, Red Blood Count 3.18 L, Mean Corpuscular Volume 92.2, Mean Corpuscular Hemoglobin 29.4, Mean Corpuscular Hemoglobin Concent 31.9 L, Red Cell Distribution Width 14.7 H, Neutrophils (%) (Auto) 59.8 , Lymphocytes (%) (Auto) 20.5 L, Monocytes (%) (Auto) 6.7 H, Eosinophils (%) ( Auto) 10.5 H, Basophils (%) (Auto) 0.4, Neutrophils # (Auto) 3.6, Lymphocytes # (Auto) 1.2 L, Monocytes # (Auto) 0.4, Eosinophils # (Auto) 0.6 H, Basophils # ( Auto) 0.0 Microbiology Microbiology 05/18/16 Blood Culture - Preliminary, Resulted No Growth after 48 hours. All Specime... 05/18/16 Blood Culture - Preliminary, Resulted No Growth after 48 hours. All Specime... JUAN MANUEL HOWELL DO May 20, 2016 13:39
[2016-05-20 14:00] VITALS: BP 93/49
[2016-05-20] MEDS: MAALOX 30 ML SUSP *UDC PO PRN (18:54)
[2016-05-20] MEDS: MIRTAZAPINE 15 MG TAB PO SCH (21:10)
[2016-05-20] MEDS: ACETAMINOPHEN TAB 650MG DOSE (2X325MG) PO PRN (21:11)
[2016-05-20 22:00] VITALS: BP 125/74
[2016-05-21 06:00] VITALS: BP 114/55
[2016-05-21] MEDS: LEVOTHYROXINE 0.075 MG TAB (75 MCG) PO SCH (06:00)
[2016-05-21] MEDS: SUCRALFATE SUSP 1GM/10ML UD PO SCH ×3 (07:30→17:19)
[2016-05-21 08:33] LABS: BASO % 0.3 % (0.0-1.0); EOS # 0.8 K/mm3 (0.0-0.50); EOS % 12.9 % (0.0-3.0); LARGE UNSTAINED CELL # 0.2 K/mm3 (0.0-0.4); LARGE UNSTAINED CELL % 2.5 % (0.0-4.0); LYMPH # 1.5 K/mm3 (1.5-4.5); LYMPH % 21.5 % (24.0-44.0); MEAN CORPUSCULAR HEMOGLOBIN 30.1 pg (27.0-33.0); MEAN CORPUSCULAR HGB CONC 32.7 g/dl (32.0-36.5); MEAN CORPUSCULAR VOLUME 92.1 fl (80.0-96.0); MONO # 0.5 K/mm3 (0.0-0.8); MONO % 7.7 % (0.0-5.0); NEUTROPHILS # 3.4 K/mm3 (1.8-7.7); NEUTROPHILS % 55.1 % (36.0-66.0); PLATELET COUNT, AUTOMATED 263 k/mm3 (150-450); RED CELL DISTRIBUTION WIDTH 14.8 % (11.5-14.5); WHITE BLOOD COUNT 6.2 K/mm3 (4.0-10.0)
[2016-05-21 08:37] LABS: INR 2.14
[2016-05-21 09:03] LABS: ALBUMIN 2.4 GM/DL (3.2-5.2); ALBUMIN/GLOBULIN RATIO 0.83 (1.00-1.93); BILIRUBIN,TOTAL 0.5 MG/DL (0.2-1.0); CALCIUM LEVEL 8.1 MG/DL (8.8-10.2); CREATININE FOR GFR 0.98 MG/DL (0.55-1.02); POTASSIUM SERUM 4.6 MEQ/L (3.5-5.1); TOTAL PROTEIN 5.3 GM/DL (6.4-8.2)
[2016-05-21 10:00] VITALS: BP 135/69
[2016-05-21] MEDS: IPRATROPIUM 0.5MG/ALBUTEROL 2.5MG INH SOL UD 3ML (DUONEB)(J7620) NEB PRN (10:16)
[2016-05-21] MEDS: LOPERAMIDE 2 MG CAP PO SCH ×3 (10:50→20:59)
[2016-05-21] MEDS: LANSOPRAZOLE SUSPENSION 30 MG/10 ML ORAL SYRINGE (FIRST-LANSOPRAZOLE) PO SCH ×2 (10:50→20:45)
[2016-05-21] MEDS: MAALOX 30 ML SUSP *UDC PO PRN (10:50)
[2016-05-21] MEDS: LACTOBACILLUS ACIDOPHILUS CAP (BACID) PO SCH ×2 (10:50→20:45)
[2016-05-21] MEDS: ALPRAZolam 0.25 MG TAB PO SCH ×5 (10:50→20:59)
[2016-05-21] MEDS: LACOSAMIDE 50 MG TAB (VIMPAT) PO SCH ×2 (10:50→20:46)
--- NOTE | 2016-05-21 16:02 | REP ---
KUB, ONE VIEW: HISTORY: Abdominal distension. Air is present in the small and large intestine. There are no air fluid levels or dilated loops of intestine. There is no pneumoperitoneum. A moderate amount of stool is present in the colon. The patient is status-post T12 and L1 kyphoplasty. Degenerative change is present in the lumbar spine. IMPRESSION: Nonspecific bowel gas pattern. Signed by Emmett Estes MD 05/21/2016 04:05 P
--- NOTE | 2016-05-21 19:56 | IPNPDOC ---
Subjective Date Seen The patient was seen on 05/21/16. Subjective Chief Complaint/HPI The patient is a 89-year-old female admitted with a reason for visit of Pneumonia. General: Reports: ROS Unobtainable Objective Physical Examination General Exam: Positive: No Acute Distress Eye Exam: Positive: Conjunctiva & lids normal, PERRLA ENT Exam: Positive: Atraumatic, Mucous membr. moist/pink, Pharynx Normal Neck Exam: Positive: Supple, Negative: JVD, thyromegaly Chest Exam: Positive: Clear to auscultation Heart Exam: Positive: Normal S1, Normal S2, Rate Normal, Regular Rhythm, Negative: Murmurs, Rubs Abdomen Exam: Positive: Normal bowel sounds, Soft, Negative: Hepatospenomegaly, Tenderness Extremity Exam: Positive: Normal pulses, Negative: Clubbing, Cyanosis, Edema Assessment /Plan Problems (1) Fever Status: Resolved Problem Text: reccurent febrile episodes thought to be due to recurrent aspiration episodes. Pateint recently treated for aspiration pneumonia and discharged for 24 hours prior to readmission with oral clindamycin. she has now completed the course of treatment for the aspiration pneumonia, ct chest showed pneumonia almost resolved so antibiotics were stopped. dr ely was consulted daughter wants PEJ tube (2) Aspiration into airway Status: Chronic Problem Text: Dr ely is consulted for feeding tube placement. 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 Plan/VTE VTE Prophylaxis Ordered?: Yes VS, I&O, 24H, Fishbone Vital Signs/I&O Vital Signs Date Time Temp Pulse Resp B/P Pulse Ox O2 Delivery O2 Flow Rate FiO2 05/21/16 10:00 98.0 79 18 135/69 97 Room Air 05/21/16 06:00 2.0 I&O- Last 24 Hours up to 6 AM 05/21/16 06:00 Intake Total 600 ml Balance 600 ml Laboratory Data 24H LABS Laboratory Tests 2 05/21/16 08:06: Blood Urea Nitrogen 14, Creatinine 0.98, Sodium Level 144, Potassium Level 4.6, Chloride Level 109H, Carbon Dioxide Level 29, Calcium Level 8.1L, Aspartate Amino Transf (AST/SGOT) 12L, Alanine Aminotransferase (ALT/SGPT) 12, Alkaline Phosphatase 74, Total Bilirubin 0.5#, Total Protein 5.3L, Albumin 2.4L, Albumin/ Globulin Ratio 0.83L, Anion Gap 6L, White Blood Count 6.2, Red Blood Count 3.49L , Hemoglobin 10.5L, Hematocrit 32.1L, Mean Corpuscular Volume 92.1, Mean Corpuscular Hemoglobin 30.1, Mean Corpuscular Hemoglobin Concent 32.7, Red Cell Distribution Width 14.8H, Platelet Count 263, Neutrophils (%) (Auto) 55.1, Lymphocytes (%) (Auto) 21.5L, Monocytes (%) (Auto) 7.7H, Eosinophils (%) (Auto) 12.9H, Basophils (%) (Auto) 0.3, Neutrophils # (Auto) 3.4, Lymphocytes # (Auto) 1.5, Monocytes # (Auto) 0.5, Eosinophils # (Auto) 0.8H, Basophils # (Auto) 0.0, Glomerular Filtration Rate 57.0, Large Unclassified Cells # 0.2, Large Unclassified Cells % 2.5, Prothromb Time International Ratio 2.14, Prothrombin Time 24.0H CBC/BMP Laboratory Tests 05/21/16 08:06 Calcium Level 8.1 L, Aspartate Amino Transf (AST/SGOT) 12 L, Alanine Aminotransferase (ALT/SGPT) 12, Alkaline Phosphatase 74, Total Bilirubin 0.5 #, Total Protein 5.3 L, Albumin 2.4 L, Red Blood Count 3.49 L, Mean Corpuscular Volume 92.1, Mean Corpuscular Hemoglobin 30.1, Mean Corpuscular Hemoglobin Concent 32.7, Red Cell Distribution Width 14.8 H, Neutrophils (%) (Auto) 55.1, Lymphocytes (%) (Auto) 21.5 L, Monocytes (%) (Auto) 7.7 H, Eosinophils (%) (Auto ) 12.9 H, Basophils (%) (Auto) 0.3, Neutrophils # (Auto) 3.4, Lymphocytes # ( Auto) 1.5, Monocytes # (Auto) 0.5, Eosinophils # (Auto) 0.8 H, Basophils # (Auto ) 0.0 Microbiology Microbiology 05/18/16 Blood Culture - Preliminary, Resulted No Growth after 72 hours. All specime... 05/18/16 Blood Culture - Preliminary, Resulted No Growth after 72 hours. All specime... JUAN MANUEL HOWELL DO May 21, 2016 19:56
[2016-05-21] MEDS: MIRTAZAPINE 15 MG TAB PO SCH (20:46)
[2016-05-21 22:00] VITALS: BP 172/64
[2016-05-22] MEDS: LEVOTHYROXINE 0.075 MG TAB (75 MCG) PO SCH (05:38)
[2016-05-22 06:00] VITALS: BP 119/55
[2016-05-22 07:05] LABS: BASO % 0.4 % (0.0-1.0); EOS # 1.2 K/mm3 (0.0-0.50); EOS % 14.3 % (0.0-3.0); LARGE UNSTAINED CELL # 0.2 K/mm3 (0.0-0.4); LARGE UNSTAINED CELL % 2.3 % (0.0-4.0); LYMPH # 1.4 K/mm3 (1.5-4.5); LYMPH % 17.5 % (24.0-44.0); MEAN CORPUSCULAR HEMOGLOBIN 29.1 pg (27.0-33.0); MEAN CORPUSCULAR HGB CONC 31.6 g/dl (32.0-36.5); MEAN CORPUSCULAR VOLUME 91.9 fl (80.0-96.0); MONO # 0.5 K/mm3 (0.0-0.8); MONO % 6.2 % (0.0-5.0); NEUTROPHILS # 4.8 K/mm3 (1.8-7.7); NEUTROPHILS % 59.3 % (36.0-66.0); PLATELET COUNT, AUTOMATED 278 k/mm3 (150-450); RED CELL DISTRIBUTION WIDTH 14.5 % (11.5-14.5); WHITE BLOOD COUNT 8.1 K/mm3 (4.0-10.0)
[2016-05-22 07:07] LABS: INR 1.63
[2016-05-22 07:16] LABS: ALBUMIN 2.6 GM/DL (3.2-5.2); ALBUMIN/GLOBULIN RATIO 0.72 (1.00-1.93); BILIRUBIN,TOTAL 0.5 MG/DL (0.2-1.0); CALCIUM LEVEL 8.5 MG/DL (8.8-10.2); CREATININE FOR GFR 0.94 MG/DL (0.55-1.02); GLOMERULAR FILTRATION RATE 59.8 (>32); POTASSIUM SERUM 4.7 MEQ/L (3.5-5.1); TOTAL PROTEIN 6.2 GM/DL (6.4-8.2)
[2016-05-22] MEDS: LOPERAMIDE 2 MG CAP PO SCH ×3 (09:16→21:22)
[2016-05-22] MEDS: ALPRAZolam 0.25 MG TAB PO SCH ×5 (09:16→21:22)
[2016-05-22] MEDS: SUCRALFATE SUSP 1GM/10ML UD PO SCH ×3 (09:16→17:00)
[2016-05-22] MEDS: MAALOX 30 ML SUSP *UDC PO PRN (09:16)
[2016-05-22] MEDS: LANSOPRAZOLE SUSPENSION 30 MG/10 ML ORAL SYRINGE (FIRST-LANSOPRAZOLE) PO SCH ×2 (09:20→21:22)
[2016-05-22] MEDS: LACTOBACILLUS ACIDOPHILUS CAP (BACID) PO SCH ×2 (09:21→21:22)
[2016-05-22] MEDS: LACOSAMIDE 50 MG TAB (VIMPAT) PO SCH ×2 (09:21→21:21)
[2016-05-22] MEDS: IPRATROPIUM 0.5MG/ALBUTEROL 2.5MG INH SOL UD 3ML (DUONEB)(J7620) NEB PRN (09:23)
[2016-05-22 14:00] VITALS: BP 126/58
--- NOTE | 2016-05-22 16:22 | IPNPDOC ---
Subjective Date Seen The patient was seen on 05/22/16. Subjective Chief Complaint/HPI The patient is a 89-year-old female admitted with a reason for visit of Pneumonia. Objective Physical Examination General Exam: Positive: No Acute Distress Eye Exam: Positive: Conjunctiva & lids normal, PERRLA ENT Exam: Positive: Atraumatic, Mucous membr. moist/pink, Pharynx Normal Neck Exam: Positive: Supple, Negative: JVD, thyromegaly Chest Exam: Positive: Clear to auscultation Heart Exam: Positive: Normal S1, Normal S2, Rate Normal, Regular Rhythm, Negative: Murmurs, Rubs Abdomen Exam: Positive: Normal bowel sounds, Soft, Negative: Hepatospenomegaly, Tenderness Extremity Exam: Positive: Normal pulses, Negative: Clubbing, Cyanosis, Edema Assessment /Plan Problems (1) Fever Status: Resolved Problem Text: reccurent febrile episodes thought to be due to recurrent aspiration episodes. Pateint recently treated for aspiration pneumonia and discharged for 24 hours prior to readmission with oral clindamycin. she has now completed the course of treatment for the aspiration pneumonia, ct chest showed pneumonia almost resolved so antibiotics were stopped. dr ely was consulted daughter wants PEJ tube (2) Aspiration into airway Status: Chronic Problem Text: Dr ely is consulted for feeding tube placement. 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 Plan/VTE VTE Prophylaxis Ordered?: Yes VS, I&O, 24H, [place] Vital Signs/I&O Vital Signs Date Time Temp Pulse Resp B/P Pulse Ox O2 Delivery O2 Flow Rate FiO2 05/22/16 08:00 Room Air 05/22/16 06:00 98.6 77 18 119/55 96 2.0 I&O- Last 24 Hours up to 6 AM 05/22/16 05:59 Intake Total 120 ml Balance 120 ml Laboratory Data 24H LABS Laboratory Tests 2 05/22/16 06:44: Blood Urea Nitrogen 11, Creatinine 0.94, Sodium Level 142, Potassium Level 4.7, Chloride Level 106, Carbon Dioxide Level 30, Calcium Level 8.5L, Aspartate Amino Transf (AST/SGOT) 13L, Alanine Aminotransferase (ALT/SGPT) 11L, Alkaline Phosphatase 77, Total Bilirubin 0.5, Total Protein 6.2L, Albumin 2.6L, Albumin/ Globulin Ratio 0.72L, Anion Gap 6L, White Blood Count 8.1, Red Blood Count 3.84L , Hemoglobin 11.2L, Hematocrit 35.2L, Mean Corpuscular Volume 91.9, Mean Corpuscular Hemoglobin 29.1, Mean Corpuscular Hemoglobin Concent 31.6L, Red Cell Distribution Width 14.5, Platelet Count 278, Neutrophils (%) (Auto) 59.3, Lymphocytes (%) (Auto) 17.5L, Monocytes (%) (Auto) 6.2H, Eosinophils (%) (Auto) 14.3H, Basophils (%) (Auto) 0.4, Neutrophils # (Auto) 4.8, Lymphocytes # (Auto) 1.4L, Monocytes # (Auto) 0.5, Eosinophils # (Auto) 1.2H, Basophils # (Auto) 0.0 , Glomerular Filtration Rate 59.8, Large Unclassified Cells # 0.2, Large Unclassified Cells % 2.3, Prothromb Time International Ratio 1.63, Prothrombin Time 19.4H CBC/BMP Laboratory Tests 05/22/16 06:44 Calcium Level 8.5 L, Aspartate Amino Transf (AST/SGOT) 13 L, Alanine Aminotransferase (ALT/SGPT) 11 L, Alkaline Phosphatase 77, Total Bilirubin 0.5, Total Protein 6.2 L, Albumin 2.6 L, Red Blood Count 3.84 L, Mean Corpuscular Volume 91.9, Mean Corpuscular Hemoglobin 29.1, Mean Corpuscular Hemoglobin Concent 31.6 L, Red Cell Distribution Width 14.5, Neutrophils (%) (Auto) 59.3, Lymphocytes (%) (Auto) 17.5 L, Monocytes (%) (Auto) 6.2 H, Eosinophils (%) (Auto ) 14.3 H, Basophils (%) (Auto) 0.4, Neutrophils # (Auto) 4.8, Lymphocytes # ( Auto) 1.4 L, Monocytes # (Auto) 0.5, Eosinophils # (Auto) 1.2 H, Basophils # ( Auto) 0.0 Microbiology Microbiology 05/18/16 Blood Culture - Preliminary, Resulted No Growth after 72 hours. All specime... 05/18/16 Blood Culture - Preliminary, Resulted No Growth after 72 hours. All specime... JUAN MANUEL HOWELL DO May 22, 2016 16:22
[2016-05-22] MEDS: WARFARIN SOD 2.5 MG TAB PO SCH ×2 (17:00→17:01)
[2016-05-22] MEDS: MIRTAZAPINE 15 MG TAB PO SCH (21:21)
[2016-05-22 22:00] VITALS: BP 166/76
[2016-05-23] VITALS (10 sets, daily range): BP systolic 102–188; BP diastolic 53–100; O2SAT 95
[2016-05-23] MEDS: LEVOTHYROXINE 0.075 MG TAB (75 MCG) PO SCH (05:22)
[2016-05-23] MEDS: SUCRALFATE SUSP 1GM/10ML UD PO SCH ×3 (05:23→17:30)
[2016-05-23 07:57] LABS: BASO % 0.5 % (0.0-1.0); EOS # 0.9 K/mm3 (0.0-0.50); EOS % 13.4 % (0.0-3.0); LARGE UNSTAINED CELL # 0.2 K/mm3 (0.0-0.4); LARGE UNSTAINED CELL % 2.5 % (0.0-4.0); LYMPH # 1.4 K/mm3 (1.5-4.5); LYMPH % 17.4 % (24.0-44.0); MEAN CORPUSCULAR HEMOGLOBIN 29.2 pg (27.0-33.0); MEAN CORPUSCULAR VOLUME 91.3 fl (80.0-96.0); MONO # 0.5 K/mm3 (0.0-0.8); MONO % 6.6 % (0.0-5.0); NEUTROPHILS # 4.1 K/mm3 (1.8-7.7); NEUTROPHILS % 59.7 % (36.0-66.0); PLATELET COUNT, AUTOMATED 288 k/mm3 (150-450); RED CELL DISTRIBUTION WIDTH 14.8 % (11.5-14.5); WHITE BLOOD COUNT 6.8 K/mm3 (4.0-10.0)
[2016-05-23 08:09] LABS: INR 1.44
[2016-05-23 08:22] LABS: ALBUMIN 2.3 GM/DL (3.2-5.2); ALBUMIN/GLOBULIN RATIO 0.7 (1.00-1.93); BILIRUBIN,TOTAL 0.4 MG/DL (0.2-1.0); CALCIUM LEVEL 8.6 MG/DL (8.8-10.2); CREATININE FOR GFR 1.06 MG/DL (0.55-1.02); GLOMERULAR FILTRATION RATE 52.1 (>32); POTASSIUM SERUM 4.6 MEQ/L (3.5-5.1); TOTAL PROTEIN 5.6 GM/DL (6.4-8.2)
[2016-05-23] MEDS: LACTOBACILLUS ACIDOPHILUS CAP (BACID) PO SCH ×2 (09:00→20:32)
[2016-05-23] MEDS: LOPERAMIDE 2 MG CAP PO SCH ×3 (09:00→20:32)
[2016-05-23] MEDS: LANSOPRAZOLE SUSPENSION 30 MG/10 ML ORAL SYRINGE (FIRST-LANSOPRAZOLE) PO SCH ×2 (09:00→20:30)
[2016-05-23] MEDS: LACOSAMIDE 50 MG TAB (VIMPAT) PO SCH ×2 (09:00→20:32)
[2016-05-23] MEDS ORDERED: LIDOCAINE 2% MDV 20 ML VIAL As Ordered ONE (09:10)
[2016-05-23] MEDS ORDERED: ISOVUE-300 61% 50ML VIAL (Q9967) As Ordered ONE ×3 (09:11→10:01)
[2016-05-23] MEDS ORDERED: SODIUM BICARBONATE 8.4% INJ 50MEQ 50 ML VIAL As Ordered ONE (09:11)
--- NOTE | 2016-05-23 09:36 | IPNPDOC ---
Subjective Date Seen The patient was seen on 05/23/16. Subjective Chief Complaint/HPI The patient is a 89-year-old female admitted with a reason for visit of Pneumonia. General: Reports: ROS Unobtainable Objective Physical Examination General Exam: Positive: No Acute Distress Eye Exam: Positive: Conjunctiva & lids normal, PERRLA ENT Exam: Positive: Atraumatic, Mucous membr. moist/pink, Pharynx Normal Neck Exam: Positive: Supple, Negative: JVD, thyromegaly Chest Exam: Positive: Clear to auscultation Heart Exam: Positive: Normal S1, Normal S2, Rate Normal, Regular Rhythm, Negative: Murmurs, Rubs Abdomen Exam: Positive: Normal bowel sounds, Soft, Negative: Hepatospenomegaly, Tenderness Extremity Exam: Positive: Normal pulses, Negative: Clubbing, Cyanosis, Edema Assessment /Plan Problems (1) Fever Status: Resolved Problem Text: * reccurent febrile episodes thought to be due to recurrent aspiration episodes. * Pateint recently treated for aspiration pneumonia and discharged for 24 hours prior to readmission with oral clindamycin. * she has completed the course of treatment for the aspiration pneumonia, * ct chest showed pneumonia almost resolved so antibiotics were stopped. 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 Plan/VTE VTE Prophylaxis Ordered?: Yes VS, I&O, 24H, Arnav Vital Signs/I&O Vital Signs Date Time Temp Pulse Resp B/P Pulse Ox O2 Delivery O2 Flow Rate FiO2 05/23/16 06:00 98.9 75 17 128/59 95 Nasal Cannula 2.0 I&O- Last 24 Hours up to 6 AM 05/23/16 06:00 Intake Total 0 ml Balance 0 ml Laboratory Data 24H LABS Laboratory Tests 2 05/23/16 07:41: Blood Urea Nitrogen 14, Creatinine 1.06H, Sodium Level 142, Potassium Level 4.6 , Chloride Level 107, Carbon Dioxide Level 32, Calcium Level 8.6L, Aspartate Amino Transf (AST/SGOT) 9L, Alanine Aminotransferase (ALT/SGPT) 10L, Alkaline Phosphatase 70, Total Bilirubin 0.4, Total Protein 5.6L, Albumin 2.3L, Albumin/ Globulin Ratio 0.70L, Anion Gap 3L, White Blood Count 6.8, Red Blood Count 3.47L , Hemoglobin 10.2L, Hematocrit 31.7L, Mean Corpuscular Volume 91.3, Mean Corpuscular Hemoglobin 29.2, Mean Corpuscular Hemoglobin Concent 32.0, Red Cell Distribution Width 14.8H, Platelet Count 288, Neutrophils (%) (Auto) 59.7, Lymphocytes (%) (Auto) 17.4L, Monocytes (%) (Auto) 6.6H, Eosinophils (%) (Auto) 13.4H, Basophils (%) (Auto) 0.5, Neutrophils # (Auto) 4.1, Lymphocytes # (Auto) 1.4L, Monocytes # (Auto) 0.5, Eosinophils # (Auto) 0.9H, Basophils # (Auto) 0.0 , Glomerular Filtration Rate 52.1, Large Unclassified Cells # 0.2, Large Unclassified Cells % 2.5, Prothromb Time International Ratio 1.44, Prothrombin Time 17.6H CBC/BMP Laboratory Tests 05/23/16 07:41 Calcium Level 8.6 L, Aspartate Amino Transf (AST/SGOT) 9 L, Alanine Aminotransferase (ALT/SGPT) 10 L, Alkaline Phosphatase 70, Total Bilirubin 0.4, Total Protein 5.6 L, Albumin 2.3 L, Red Blood Count 3.47 L, Mean Corpuscular Volume 91.3, Mean Corpuscular Hemoglobin 29.2, Mean Corpuscular Hemoglobin Concent 32.0, Red Cell Distribution Width 14.8 H, Neutrophils (%) (Auto) 59.7, Lymphocytes (%) (Auto) 17.4 L, Monocytes (%) (Auto) 6.6 H, Eosinophils (%) (Auto ) 13.4 H, Basophils (%) (Auto) 0.5, Neutrophils # (Auto) 4.1, Lymphocytes # ( Auto) 1.4 L, Monocytes # (Auto) 0.5, Eosinophils # (Auto) 0.9 H, Basophils # ( Auto) 0.0 Microbiology Microbiology 05/18/16 Blood Culture - Final, Complete NO GROWTH AFTER 5 DAYS 05/18/16 Blood Culture - Final, Complete NO GROWTH AFTER 5 DAYS JUAN MANUEL HOWELL DO May 23, 2016 09:36
[2016-05-23] MEDS: ALPRAZolam 0.25 MG TAB PO SCH ×3 (10:28→19:26)
--- NOTE | 2016-05-23 15:08 | REPKIM ---
CLINICAL HISTORY: Significant medical comorbidities, hiatal hernia and multiple episodes of aspiration pneumonia. Patient is referred for a percutaneous transgastric jejunostomy feeding tube placement. PROCEDURE PERFORMED: Percutaneous Transgastric Jejunostomy Tube Placement INTERVENTIONALIST: Pallavi Vaca MD CONSENT: The risks, benefits and alternatives to the procedure were explained to the patients daughter and informed written consent was obtained. MEDICATIONS: Local Lidocaine CONTRAST: 55 mL Isovue 300 EBL: less than 5 mL FLUORO TIME: 20.8 minutes DEVICE USED: 16.5F [id number]-[id number] Gastrojejunostomy tube set Lot#[id number] PROCEDURE/FINDINGS: The patient was brought to the interventional radiology suite and placed in the supine position with head of bed elevated. Time out procedure was performed. An 18-Luxembourger nasogastric tube was advanced through the nares down the oropharynx , esophagus and into the stomach. The patient was then placed in the supine position. The abdomen was prepped and draped in a usual sterile fashion. Air was introduced into the stomach through the nasogastric tube. A single Gastropexy was performed by the introduction of T-fastener into the gastric lumen through percutaneous puncture with an 18-gauge needle of the air- insufflated stomach, after infiltration of the skin and deep tissues with local anesthetic. Getting access into the stomach was challenging due to relatively significant hiatal hernia. The catheter tip was confirmed in the gastric lumen by contrast injection. Using this access, a 7-Luxembourger vascular sheath was introduced. A selective catheter was coaxially introduced into the stomach. Then with the aid of a hydrophilic guidewire, the catheter was advanced across the pyloric canal, through the duodenal sweep, and into the proximal jejunum. The hydrophilic wire was exchanged for a stiff guidewire. After serial dilation of the tract, a 16.5-Luxembourger CAC gastrojejunostomy feeding tube was advanced over the guidewire. The retention loop was formed in the gastric lumen. The CAC feeding tube was secured using 2-0 silk sutures. Contrast was injected into both the gastric and jejunal ports to confirm satisfactory course and position. Post procedure radiograph shows the tip of the tube in the proximal jejunum. The stomach was decompressed. The nasogastric tube was removed. The patient tolerated the procedure with no immediate complications. This procedure was performed using fluoroscopy. Dr. Vaca was present. IMPRESSION: 1. Hiatal hernia with severe GERD. 2. Successful 16.5-Luxembourger percutaneous transgastric jejunostomy feeding tube placement as discussed above. PLAN 1. Flush the jejunal port with 50mL water every 6 hours during continuous feeding, before and after each usage, or at least every 8 hours if the tube is not being used. 2. When flushing a tube, use water and a 30cc-60cc catheter tip syringe. 3. May use jejunal port of the GJ tube starting tomorrow AM if bowel sounds are present and no abdominal pain. cc: DO Jamila Mcnamara MD MTDD
[2016-05-23] MEDS ORDERED: ALPRAZolam 0.25 MG TAB PO PRN (16:15)
[2016-05-23] MEDS: WARFARIN SOD 2.5 MG TAB PO SCH (17:30)
[2016-05-23] MEDS: MAALOX 30 ML SUSP *UDC PO PRN (20:31)
[2016-05-23] MEDS: MIRTAZAPINE 15 MG TAB PO SCH (20:32)
--- NOTE | 2016-05-23 21:40 | REPUSA ---
Clinical history: Shortness of breath. Comparison: 04/07/2016. Findings: The mediastinum is within normal limits. The heart is enlarged. There are moderate sized bi lateral lower lobe infiltrates and pleural effusions. The osseous structures and soft tissues are unr emarkable. Impression: New bilateral moderate sized lower lobe infiltrates and pleural effusions. Cardiomegaly.
[2016-05-23] MEDS: IPRATROPIUM 0.5MG/ALBUTEROL 2.5MG INH SOL UD 3ML (DUONEB)(J7620) NEB PRN (22:25)
[2016-05-24] VITALS (11 sets, daily range): BP systolic 132–164; BP diastolic 58–82; O2SAT 92–94
[2016-05-24] MEDS: ACETAMINOPHEN 650 MG SUPP PR PRN ×2 (00:04→20:23)
[2016-05-24] MEDS: MEROPENEM INJ 1 GM in D5W MINI-BAG PLUS 100 ML IV SCH ×4 (00:29→23:13)
[2016-05-24] MEDS: IPRATROPIUM 0.5MG/ALBUTEROL 2.5MG INH SOL UD 3ML (DUONEB)(J7620) NEB PRN ×9 (00:48→23:35)
[2016-05-24] MEDS ORDERED: FUROSEMIDE 20 MG/2 ML VIAL (J1940) IV ONE (01:30)
--- NOTE | 2016-05-24 02:33 | IPN ---
DATE: 05/24/2016 Patient was seen and examined at bedside last night with attending doctor due to patient was paged for tachycardia with a heart rate of 120. EKG was done which shows sinus tachycardia with a ventricular rate of 120. In addition, patient appears to have some trouble breathing. On examination, she has rhonchi and rales on the right side. Chest x-ray was done and it shows new bilateral moderate-sized lower lobe infiltrate, pleural effusions and also cardiomegaly. Due to patient's poor mucociliary clearance, at this point, we are suspecting for aspiration pneumonia. Patient also has multiple allergies, including erythromycin, metronidazole, moxifloxacin, penicillin. Therefore, the patient was started on meropenem one gram every eight hours. In addition, patient's lungs do have rales in the basilar regions bilaterally. Therefore, a small dose of Lasix 20 mg IV was given. Due to patient's kidney function, does appear to be getting worse. We will continue to monitor patient and we will adjust patient's intake and output closely. Patient has been discussed with attending doctor, Dr. Williamson. My preceptor for this patient encounter was Dr. Marisol Williamson. The preceptor was physically present in the building during the encounter and was fully available. As needed, all aspects of the patient interview, examination, medical decision making process, and medical care plan development were reviewed and approved by the preceptor. The preceptor is aware and concurs with the plan as stated in the body of this note and will attest to such by his cosignature. Addendum: Around 1:30 am Patient starting having elevated temperature around 100 F. At this point patient 's HR still 120s. Patient's daughter requested to transfer patient to higher level of care, and stated that her mother would remain Full Code and she wanted everything possible to treat her mother. After speaking to Dr. Williamson, we have agreed to upgrade patient to PCU due to patient is tachycardic, with a new infiltrate, her age and comorbidities. [facility]
[2016-05-24] MEDS ORDERED: SLF 3 ML SYR IV PRN (02:45)
[2016-05-24 05:21] LABS: BASO % 0.1 % (0.0-1.0); EOS % 0.1 % (0.0-3.0); LARGE UNSTAINED CELL # 0.2 K/mm3 (0.0-0.4); LARGE UNSTAINED CELL % 0.7 % (0.0-4.0); LYMPH # 0.5 K/mm3 (1.5-4.5); LYMPH % 1.4 % (24.0-44.0); MEAN CORPUSCULAR HGB CONC 32.6 g/dl (32.0-36.5); MEAN CORPUSCULAR VOLUME 92.1 fl (80.0-96.0); MONO # 1.1 K/mm3 (0.0-0.8); MONO % 3.3 % (0.0-5.0); NEUTROPHILS % 94.4 % (36.0-66.0); RED CELL DISTRIBUTION WIDTH 14.6 % (11.5-14.5)
[2016-05-24 05:29] LABS: PLATELET COUNT, AUTOMATED 393 k/mm3 (150-450); WHITE BLOOD COUNT 32.9 K/mm3 (4.0-10.0)
[2016-05-24 05:47] LABS: ALBUMIN 2.7 GM/DL (3.2-5.2); ALBUMIN/GLOBULIN RATIO 0.57 (1.00-1.93); BILIRUBIN,TOTAL 0.6 MG/DL (0.2-1.0); CALCIUM LEVEL 9.1 MG/DL (8.8-10.2); CREATININE FOR GFR 1.58 MG/DL (0.55-1.02); GLOMERULAR FILTRATION RATE 32.9 (>32); POTASSIUM SERUM 4.3 MEQ/L (3.5-5.1); TOTAL PROTEIN 7.4 GM/DL (6.4-8.2)
[2016-05-24] MEDS: LEVOTHYROXINE 0.075 MG TAB (75 MCG) PO SCH ×2 (06:00→06:39)
[2016-05-24] MEDS: SLF 3 ML SYR IV SCH ×3 (06:38→20:23)
[2016-05-24] MEDS: SUCRALFATE SUSP 1GM/10ML UD PO SCH ×3 (08:46→16:59)
[2016-05-24] MEDS: LACTOBACILLUS ACIDOPHILUS CAP (BACID) PO SCH ×2 (08:46→20:23)
[2016-05-24] MEDS: VANCOMYCIN HCL 750 MG, VIAL MATE ADAPTER 1 EACH in D5W 250 ML IV SCH (08:47)
[2016-05-24 08:48] LABS: INR 1.6
[2016-05-24] MEDS: LOPERAMIDE 2 MG CAP PO SCH ×3 (08:52→19:19)
[2016-05-24] MEDS: LACOSAMIDE 50 MG TAB (VIMPAT) PO SCH ×2 (09:00→20:23)
[2016-05-24] MEDS: ALPRAZolam 0.25 MG TAB PO SCH ×4 (09:00→19:00)
[2016-05-24] MEDS: NS 1,000 ML IV SCH (10:15)
[2016-05-24] MEDS: LANSOPRAZOLE SUSPENSION 30 MG/10 ML ORAL SYRINGE (FIRST-LANSOPRAZOLE) PO SCH ×2 (10:24→20:24)
--- NOTE | 2016-05-24 10:30 | PHACANCOPD ---
PHARMACY VANCOMYCIN DOSING Pt Demographics Demographics Patient Age:89 , Weight:48.400 , Gender: female Adjusted Body Weight Date: 05/24/16, Adjusted Body Weight: Kg Events Past 24 Hours Events Past 24 Hours: YES: Elevation in WBC, Pending Diagnostics Vancomycin Vancomycin indication: aspiration pneumonia Vancomycin Target Ranges: 15-20 mcg/ml Vancomycin Load Y/N: Yes Load Dose Date Time Vancomycin Load Dose: 1250mg Date: 05/24/16 Time: 750mg@08, 500mg@11 Vancomycin Dose Date: 05/24/16. Current Vancomycin Dose: [750mg IV Q24H@08] Intermittent Dosing?: No Labs Labs Item Value Date Time White Blood Count 32.9 K/mm3 *H 05/24/16 0424 White Blood Count 6.8 K/mm3 05/23/16 0741 White Blood Count 8.1 K/mm3 05/22/16 0644 Creatinine 1.58 MG/DL H 05/24/16 0424 Creatinine 1.06 MG/DL H 05/23/16 0741 Creatinine 0.94 MG/DL 05/22/16 0644 C-Reactive Protein, Quantitative 12.60 MG/DL H 05/24/16 0424 C-Reactive Protein, Quantitative 3.56 MG/DL H 05/20/16 0642 Micro Microbiology 05/18/16 Blood Culture - Final, Complete NO GROWTH AFTER 5 DAYS 05/18/16 Blood Culture - Final, Complete NO GROWTH AFTER 5 DAYS 05/24/16 Gram Stain, Received Pending 05/24/16 Sputum Culture, Received Pending 05/24/16 MRSA Screen, Received Pending Creatinine Clearance Date:05/24/16. Estimated Creatinine Clearance: ~[19.2ml/min]. Assessment and Plan Maintaining Current Dose?: Yes Reason for dose change: No Dose Change Pharmacist Note Pharmacist Note Date: 05/24/16. Pharmacist note: Day #1 empiric vancomycin initiated with a 1250mg loading dose followed by a maintenance regimen of 750mg IV Q24H to be given with meropenem for the treatment of aspiration pneumonia - aiming for a goal trough of 15-20mcg/ml. WBC and CRP are elevated, and patient has been mildly febrile within the past 24 hours. 05/23 CXR resulted new bilateral lower lobe infiltrates. No PMH of MRSA, but patient does have a hx of vanco use here at [facility] back in March 2016. Scr is currently elevated at 1.58 today, with a baseline ~ 0.90. Blood cultures are negative, and sputum cultures are pending. We will continue to monitor kidney function and schedule a trough level accordingly. [facility] May 24, 2016 10:30
[2016-05-24] MEDS ORDERED: VANCOMYCIN HCL 500 MG in D5W MINI-BAG PLUS 100 ML IV ONE (11:00)
--- NOTE | 2016-05-24 13:34 | REP ---
Clinical: Dyspnea. Cough. Comparison: 05/23/2016. Findings: Cardiomegaly is unchanged. Underlying chronic interstitial changes are again noted. Mild bibasilar atelectasis and small left pleural effusion cannot be excluded. Findings may be minimally improved compared to prior examination. Impression: Mild bibasilar atelectasis and small left pleural effusion may be mildly improved compared to prior examination. Signed by Chepe Schroeder MD 05/24/2016 01:25 P
[2016-05-24 13:51] LABS: ABG BASE EXCESS -0.2 (-2.0-2.0); ABG HCO3 23.1 MEQ/L (22.0-26.0); ABG PARTIAL PRESSURE CO2 33.9 mmHg (35.0-45.0); ABG PARTIAL PRESSURE O2 71.3 mmHg (75.0-100.0); ABG STANDARD HCO3 24.2 MEQ/L (22.0-26.0); ABG TOTAL CO2 24.1 MEQ/L (23.0-31.0); ABG pH (ARTERIAL) 7.451 UNITS (7.350-7.450)
--- NOTE | 2016-05-24 14:35 | ECGEPIP ---
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
[2016-05-24] MEDS: WARFARIN SOD 2.5 MG TAB PO SCH (16:59)
[2016-05-24] MEDS: methylPREDNISolone INJ 40 MG/1 ML VIAL (J2920) IV SCH (17:00)
[2016-05-24] MEDS: MIRTAZAPINE 15 MG TAB PO SCH (19:58)
[2016-05-25] VITALS (10 sets, daily range): BP systolic 92–118; BP diastolic 40–62; O2SAT 90–95
[2016-05-25] MEDS: IPRATROPIUM 0.5MG/ALBUTEROL 2.5MG INH SOL UD 3ML (DUONEB)(J7620) NEB PRN ×6 (03:12→23:18)
[2016-05-25] MEDS: NS 1,000 ML IV SCH ×2 (04:03→21:50)
[2016-05-25] MEDS: methylPREDNISolone INJ 40 MG/1 ML VIAL (J2920) IV SCH ×2 (04:03→15:53)
[2016-05-25] MEDS: SLF 3 ML SYR IV SCH ×3 (04:04→21:51)
[2016-05-25] MEDS: LEVOTHYROXINE 0.075 MG TAB (75 MCG) PO SCH (05:56)
[2016-05-25] MEDS: MEROPENEM INJ 1 GM in D5W MINI-BAG PLUS 100 ML IV SCH ×3 (06:40→21:59)
[2016-05-25 08:04] LABS: EOS # 0.2 K/mm3 (0.0-0.50); EOS % 0.9 % (0.0-3.0); LARGE UNSTAINED CELL # 0.1 K/mm3 (0.0-0.4); LARGE UNSTAINED CELL % 0.3 % (0.0-4.0); LYMPH # 0.4 K/mm3 (1.5-4.5); LYMPH % 1.6 % (24.0-44.0); MEAN CORPUSCULAR HEMOGLOBIN 29.2 pg (27.0-33.0); MEAN CORPUSCULAR HGB CONC 32.1 g/dl (32.0-36.5); MEAN CORPUSCULAR VOLUME 90.9 fl (80.0-96.0); MONO # 0.3 K/mm3 (0.0-0.8); MONO % 1.4 % (0.0-5.0); NEUTROPHILS # 23.1 K/mm3 (1.8-7.7); NEUTROPHILS % 95.8 % (36.0-66.0); PLATELET COUNT, AUTOMATED 246 k/mm3 (150-450); RED CELL DISTRIBUTION WIDTH 15.2 % (11.5-14.5); WHITE BLOOD COUNT 24.1 K/mm3 (4.0-10.0)
[2016-05-25] MEDS: VANCOMYCIN HCL 750 MG, VIAL MATE ADAPTER 1 EACH in D5W 250 ML IV SCH (08:08)
[2016-05-25] MEDS: LANSOPRAZOLE SUSPENSION 30 MG/10 ML ORAL SYRINGE (FIRST-LANSOPRAZOLE) PO SCH ×2 (08:09→21:51)
[2016-05-25] MEDS: LACOSAMIDE 50 MG TAB (VIMPAT) PO SCH ×2 (08:09→21:51)
[2016-05-25] MEDS: LACTOBACILLUS ACIDOPHILUS CAP (BACID) PO SCH ×2 (08:09→21:51)
[2016-05-25] MEDS: SUCRALFATE SUSP 1GM/10ML UD PO SCH ×3 (08:09→17:23)
[2016-05-25] MEDS: ALPRAZolam 0.25 MG TAB PO SCH ×4 (08:24→18:58)
[2016-05-25 08:30] LABS: ALBUMIN 2.1 GM/DL (3.2-5.2); ALBUMIN/GLOBULIN RATIO 0.55 (1.00-1.93); BILIRUBIN,TOTAL 0.4 MG/DL (0.2-1.0); CALCIUM LEVEL 8.2 MG/DL (8.8-10.2); CREATININE FOR GFR 1.58 MG/DL (0.55-1.02); GLOMERULAR FILTRATION RATE 32.9 (>32); POTASSIUM SERUM 4.1 MEQ/L (3.5-5.1); TOTAL PROTEIN 5.9 GM/DL (6.4-8.2)
[2016-05-25 09:00] LABS: INR 2.45
[2016-05-25] MEDS: LOPERAMIDE 2 MG CAP PO SCH ×3 (09:00→21:59)
--- NOTE | 2016-05-25 09:04 | IPNPDOC ---
Subjective Date Seen The patient was seen on 05/25/16. Subjective Chief Complaint/HPI The patient is a 89-year-old female admitted with a reason for visit of Pneumonia. General: Reports: ROS Unobtainable Objective Physical Examination General Exam: Positive: No Acute Distress Eye Exam: Positive: Conjunctiva & lids normal, PERRLA ENT Exam: Positive: Atraumatic, Mucous membr. moist/pink, Pharynx Normal Neck Exam: Positive: Supple, Negative: JVD, thyromegaly Chest Exam: Positive: Diminished, Rales, Rhonchi Heart Exam: Positive: Normal S1, Normal S2, Regular Rhythm, Tachycardic, Negative: Murmurs, Rubs Abdomen Exam: Positive: Normal bowel sounds, Other (PEG/PEJ tube in place), Soft, Negative: Hepatospenomegaly, Tenderness Extremity Exam: Positive: Normal pulses, Negative: Clubbing, Cyanosis, Edema Assessment /Plan Problems (1) Aspiration into airway Status: Chronic Problem Text: * pt has long standing history of aspiration and aspiration pneumonia * she had G-J tube placed on 05/[address] Vaca * on05/23 and 05/24 pt had a large emesis and likely aspirated again, she was transferred to PCU * she had no residuals after tube feeds however later yesterday nurse drained 400cc of bile from Gtube * pt was placed 100% nonrebreather which she was weaned off of later that day * she is now on 40% mask, will continue to titrate to keep oxygen saturation above 90% * will wean off of solumedrol today * continue duonebs, continue Merrem and vanco * Pt was made DNR/DNI on 05/24/16 (2) Fever Status: Resolved Problem Text: * reccurent febrile episodes thought to be due to recurrent aspiration episodes. 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 Problem Text: * Coumadin was help for procedure * it was resumed right after * INR still subtherapeutic * will continue Coumadin dose of 2.5 daily * INR daily 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 Plan/VTE VTE Prophylaxis Ordered?: Yes Plan Advance Directives: DNR VS, I&O, 24H, Fishbone Vital Signs/I&O Vital Signs Date Time Temp Pulse Resp B/P Pulse Ox O2 Delivery O2 Flow Rate FiO2 05/25/16 08:00 97.5 112 22 92/40 95 Venturi Mask 40 05/24/16 16:00 I&O- Last 24 Hours up to 6 AM 05/25/16 06:00 Intake Total 1825 ml Output Total 950 ml Balance 875 ml Laboratory Data 24H LABS Laboratory Tests 2 05/24/16 13:40: Arterial Blood pH 7.451H, Arterial Blood Partial Pressure CO2 33.9L, Arterial Blood Partial Pressure O2 71.3L, Arterial Blood Total CO2 24.1, Arterial Blood HCO3 23.1, Arterial Blood Base Excess -0.2, Arterial Blood Oxygen Saturation 94.6L, Blood Gas Bicarbonate Standard 24.2 05/25/16 07:54: Blood Urea Nitrogen 38#H, Creatinine 1.58H, Sodium Level 138, Potassium Level 4.1, Chloride Level 103, Carbon Dioxide Level 27, Calcium Level 8.2L, Aspartate Amino Transf (AST/SGOT) 16, Alanine Aminotransferase (ALT/SGPT) 14, Alkaline Phosphatase 64, Total Bilirubin 0.4, Total Protein 5.9#L, Albumin 2.1#L, Albumin /Globulin Ratio 0.55L, Anion Gap 8, White Blood Count 24.1H, Red Blood Count 3.59L, Hemoglobin 10.5#L, Hematocrit 32.6L, Mean Corpuscular Volume 90.9, Mean Corpuscular Hemoglobin 29.2, Mean Corpuscular Hemoglobin Concent 32.1, Red Cell Distribution Width 15.2H, Platelet Count 246, Neutrophils (%) (Auto) 95.8H, Lymphocytes (%) (Auto) 1.6L, Monocytes (%) (Auto) 1.4, Eosinophils (%) (Auto) 0.9, Basophils (%) (Auto) 0.0, Neutrophils # (Auto) 23.1H, Lymphocytes # (Auto) 0.4L, Monocytes # (Auto) 0.3, Eosinophils # (Auto) 0.2, Basophils # (Auto) 0.0, Glomerular Filtration Rate 32.9, Large Unclassified Cells # 0.1, Large Unclassified Cells % 0.3 CBC/BMP Laboratory Tests 05/25/16 07:54 Calcium Level 8.2 L, Aspartate Amino Transf (AST/SGOT) 16, Alanine Aminotransferase (ALT/SGPT) 14, Alkaline Phosphatase 64, Total Bilirubin 0.4, Total Protein 5.9 #L, Albumin 2.1 #L, Red Blood Count 3.59 L, Mean Corpuscular Volume 90.9, Mean Corpuscular Hemoglobin 29.2, Mean Corpuscular Hemoglobin Concent 32.1, Red Cell Distribution Width 15.2 H, Neutrophils (%) (Auto) 95.8 H , Lymphocytes (%) (Auto) 1.6 L, Monocytes (%) (Auto) 1.4, Eosinophils (%) (Auto ) 0.9, Basophils (%) (Auto) 0.0, Neutrophils # (Auto) 23.1 H, Lymphocytes # ( Auto) 0.4 L, Monocytes # (Auto) 0.3, Eosinophils # (Auto) 0.2, Basophils # (Auto ) 0.0 Microbiology Microbiology 05/18/16 Blood Culture - Final, Complete NO GROWTH AFTER 5 DAYS 05/18/16 Blood Culture - Final, Complete NO GROWTH AFTER 5 DAYS 05/24/16 Gram Stain - Final, Resulted 05/24/16 Sputum Culture, Resulted Pending 05/24/16 MRSA Screen, Received Pending JUAN MANUEL HOWELL DO May 25, 2016 09:03
[2016-05-25] MEDS: WARFARIN SOD 2.5 MG TAB PO SCH (17:23)
[2016-05-25] MEDS: MIRTAZAPINE 15 MG TAB PO SCH (21:58)
[2016-05-26] VITALS (7 sets, daily range): BP systolic 103–144; BP diastolic 53–107; O2SAT 94
[2016-05-26] MEDS: IPRATROPIUM 0.5MG/ALBUTEROL 2.5MG INH SOL UD 3ML (DUONEB)(J7620) NEB PRN ×5 (03:21→21:12)
[2016-05-26] MEDS: methylPREDNISolone INJ 40 MG/1 ML VIAL (J2920) IV SCH (03:51)
[2016-05-26 05:29] LABS: INR 2.5
[2016-05-26 05:42] LABS: MEAN CORPUSCULAR HEMOGLOBIN 28.8 pg (27.0-33.0); MEAN CORPUSCULAR HGB CONC 31.7 g/dl (32.0-36.5); MEAN CORPUSCULAR VOLUME 91.1 fl (80.0-96.0); RED CELL DISTRIBUTION WIDTH 15.2 % (11.5-14.5); WHITE BLOOD COUNT 18.1 K/mm3 (4.0-10.0)
[2016-05-26 05:48] LABS: ALBUMIN 2.1 GM/DL (3.2-5.2); ALBUMIN/GLOBULIN RATIO 0.72 (1.00-1.93); BILIRUBIN,TOTAL 0.3 MG/DL (0.2-1.0); CALCIUM LEVEL 7.9 MG/DL (8.8-10.2); CREATININE FOR GFR 1.18 MG/DL (0.55-1.02); POTASSIUM SERUM 3.8 MEQ/L (3.5-5.1)
[2016-05-26] MEDS: SLF 3 ML SYR IV SCH ×3 (06:00→22:00)
[2016-05-26] MEDS: LEVOTHYROXINE 0.075 MG TAB (75 MCG) PO SCH (06:08)
[2016-05-26] MEDS: MEROPENEM INJ 1 GM in D5W MINI-BAG PLUS 100 ML IV SCH ×3 (06:08→23:54)
[2016-05-26] MEDS: VANCOMYCIN HCL 750 MG, VIAL MATE ADAPTER 1 EACH in D5W 250 ML IV SCH (08:59)
[2016-05-26] MEDS: LOPERAMIDE 2 MG CAP PO SCH ×3 (09:00→21:46)
--- NOTE | 2016-05-26 09:54 | REP ---
Supine abdomen single AP view: Comparison is 05/21/2016. The bowel gas pattern is normal. There are no unusual calcifications. There are vertebroplasties of the T12 and L1 vertebra as previously. Tubing is superimposed over the abdomen of uncertain significance, intra-abdominal versus extra abdominal, I cannot make this determination on this single view. This tubing was not present previously. Signed by Bonifacio Lara MD 05/26/2016 09:46 A
[2016-05-26] MEDS: LACTOBACILLUS ACIDOPHILUS CAP (BACID) PO SCH ×2 (10:15→21:46)
[2016-05-26] MEDS: LACOSAMIDE 50 MG TAB (VIMPAT) PO SCH ×2 (10:15→21:46)
[2016-05-26] MEDS: ALPRAZolam 0.25 MG TAB PO SCH ×4 (10:16→19:00)
[2016-05-26] MEDS: LANSOPRAZOLE SUSPENSION 30 MG/10 ML ORAL SYRINGE (FIRST-LANSOPRAZOLE) PO SCH ×2 (10:16→21:46)
[2016-05-26] MEDS: SUCRALFATE SUSP 1GM/10ML UD PO SCH ×3 (10:17→17:39)
[2016-05-26] MEDS: NS 1,000 ML IV SCH (16:57)
[2016-05-26] MEDS: WARFARIN SOD 2.5 MG TAB PO SCH (17:40)
--- NOTE | 2016-05-26 18:28 | IPNPDOC ---
Subjective Date Seen The patient was seen on 05/26/16. Subjective Chief Complaint/HPI The patient is a 89-year-old female admitted with a reason for visit of Pneumonia. General: Reports: ROS Unobtainable Objective Physical Examination General Exam: Positive: No Acute Distress Eye Exam: Positive: Conjunctiva & lids normal, PERRLA ENT Exam: Positive: Atraumatic, Mucous membr. moist/pink, Pharynx Normal Neck Exam: Positive: Supple, Negative: JVD, thyromegaly Chest Exam: Positive: Diminished, Rales, Rhonchi Heart Exam: Positive: Normal S1, Normal S2, Regular Rhythm, Tachycardic, Negative: Murmurs, Rubs Abdomen Exam: Positive: Normal bowel sounds, Other (PEG/PEJ tube in place), Soft, Negative: Hepatospenomegaly, Tenderness Extremity Exam: Positive: Normal pulses, Negative: Clubbing, Cyanosis, Edema Assessment /Plan Problems (1) Aspiration into airway Status: Chronic Problem Text: * pt has long standing history of aspiration and aspiration pneumonia * she had G-J tube placed on 05/[address] Vaca * on05/23 and 05/24 pt had a large emesis and likely aspirated again, she was transferred to PCU * pt was placed 100% nonrebreather which she was weaned off of later that day * now pt on 8L of oxygen, continue deep suctioning * will restart tube feeds today * Pt was made DNR/DNI on 05/24/16 (2) Fever Status: Resolved Problem Text: * reccurent febrile episodes thought to be due to recurrent aspiration episodes. 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 Problem Text: * continue current coumadin dose * INR theraputic 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 Plan/VTE VTE Prophylaxis Ordered?: Yes Plan/Urinary Catheter Reason for insertion/continuin: Acute obstruct/retention Plan Advance Directives: DNR VS, I&O, 24H, Fishbone Vital Signs/I&O Vital Signs Date Time Temp Pulse Resp B/P Pulse Ox O2 Delivery O2 Flow Rate FiO2 05/26/16 12:00 97.1 85 20 144/87 95 Venturi Mask 8.0 35 I&O- Last 24 Hours up to 6 AM 05/26/16 06:00 Intake Total 2375 ml Output Total 2075 ml Balance 300 ml Laboratory Data 24H LABS Laboratory Tests 2 05/25/16 18:43: Urine Amorphous Sediment , Urine Appearance CLOUDYH, Urine Color YELLOW, Urine pH 7.0, Urine Specific [place] 1.005, Urine Protein NEGATIVE, Urine Glucose (UA ) NEGATIVE, Urine Ketones NEGATIVE, Urine Urobilinogen 0.2, Urine Bilirubin NEGATIVE, Urine Leukocyte Esterase 3+H, Urine Bacteria (Auto) 2+H, Urine Blood 2 +H, Urine Calcium Carbonate Cryst(Auto) , Urine Calcium Oxalate Cryst (Auto) , Urine Calcium Phosphate Michelle (Auto) , Urine Cellular Casts , Urine Cystine Crystals , Urine Granular Casts (Auto) , Urine Hyaline Casts (Auto) 0, Urine Leucine Crystals , Urine Mucus (Auto) SMALL, Urine Nitrite NEGATIVE, Urine Oval Fat Bodies (Auto) , Urine RBC (Auto) 20H, Urine Renal Epithelial Cells , Urine Sperm (Auto) , Urine Squamous Epithelial Cells 2, Urine Transitional Epithelial Cells , Urine Trichomonas (Auto) , Urine Triple Phosphate Cryst (Auto) , Urine Tyrosine Crystals , Urine Uric Acid Crystals (Auto) , Urine WBC (Auto) 163H, Urine Waxy Casts (Auto) , Urine Yeast-Like Cells (Auto) 05/26/16 04:47: Blood Urea Nitrogen 40H, Creatinine 1.18H, Sodium Level 141, Potassium Level 3.8 , Chloride Level 106, Carbon Dioxide Level 26, Calcium Level 7.9L, Aspartate Amino Transf (AST/SGOT) 11L, Alanine Aminotransferase (ALT/SGPT) 9L, Alkaline Phosphatase 57, Total Bilirubin 0.3, Total Protein 5.0L, Albumin 2.1L, Albumin/ Globulin Ratio 0.72L, Anion Gap 9, Glomerular Filtration Rate 46.0, Prothromb Time International Ratio 2.50, Prothrombin Time 27.1H CBC/BMP Laboratory Tests 05/26/16 04:47 Calcium Level 7.9 L, Aspartate Amino Transf (AST/SGOT) 11 L, Alanine Aminotransferase (ALT/SGPT) 9 L, Alkaline Phosphatase 57, Total Bilirubin 0.3, Total Protein 5.0 L, Albumin 2.1 L, Red Blood Count 3.19 L, Mean Corpuscular Volume 91.1, Mean Corpuscular Hemoglobin 28.8, Mean Corpuscular Hemoglobin Concent 31.7 L, Red Cell Distribution Width 15.2 H Microbiology Microbiology 05/18/16 Blood Culture - Final, Complete NO GROWTH AFTER 5 DAYS 05/18/16 Blood Culture - Final, Complete NO GROWTH AFTER 5 DAYS 05/24/16 Gram Stain - Final, Complete 05/24/16 Sputum Culture - Final, Complete Yeast Like Organism 05/24/16 MRSA Screen - Final, Complete 05/25/16 Urine Culture, Received Pending JUAN MANUEL HOWELL DO May 26, 2016 18:28
[2016-05-26] MEDS: MIRTAZAPINE 15 MG TAB PO SCH (21:46)
[2016-05-26] MEDS: ACETAMINOPHEN 650 MG SUPP PR PRN (22:58)
[2016-05-27] VITALS (8 sets, daily range): BP systolic 115–170; BP diastolic 58–71; O2SAT 93
[2016-05-27] MEDS: IPRATROPIUM 0.5MG/ALBUTEROL 2.5MG INH SOL UD 3ML (DUONEB)(J7620) NEB PRN ×3 (01:35→15:05)
[2016-05-27] MEDS: NS 1,000 ML IV SCH ×2 (04:55→12:12)
[2016-05-27] MEDS: SLF 3 ML SYR IV SCH ×3 (06:00→22:00)
[2016-05-27] MEDS: SUCRALFATE SUSP 1GM/10ML UD PO SCH ×3 (06:33→18:25)
[2016-05-27] MEDS: MEROPENEM INJ 1 GM in D5W MINI-BAG PLUS 100 ML IV SCH ×3 (06:33→22:42)
[2016-05-27] MEDS: LEVOTHYROXINE 0.075 MG TAB (75 MCG) PO SCH (06:33)
[2016-05-27 07:08] LABS: MEAN CORPUSCULAR HEMOGLOBIN 29.1 pg (27.0-33.0); MEAN CORPUSCULAR HGB CONC 32.1 g/dl (32.0-36.5); MEAN CORPUSCULAR VOLUME 90.5 fl (80.0-96.0); RED CELL DISTRIBUTION WIDTH 15.3 % (11.5-14.5)
[2016-05-27 07:09] LABS: INR 3.29
[2016-05-27 07:32] LABS: ALBUMIN 2.2 GM/DL (3.2-5.2); ALBUMIN/GLOBULIN RATIO 0.79 (1.00-1.93); ALKALINE PHOSPHATASE 67 U/L (45-117); ALT/SGPT 69 U/L (12-78); ANION GAP 7 MEQ/L (8-16); AST/SGOT 132 U/L (15-37); BILIRUBIN,TOTAL 0.5 MG/DL (0.2-1.0); BLOOD UREA NITROGEN 31 MG/DL (7-18); CALCIUM LEVEL 7.5 MG/DL (8.8-10.2); CARBON DIOXIDE LEVEL 26 MEQ/L (21-32); CHLORIDE LEVEL 110 MEQ/L (98-107); CREATININE FOR GFR 0.85 MG/DL (0.55-1.02); GLOMERULAR FILTRATION RATE > 60.0 (>32); GLUCOSE, FASTING 97 MG/DL (83-110); POTASSIUM SERUM 3.9 MEQ/L (3.5-5.1); SODIUM LEVEL 143 MEQ/L (136-145)
--- NOTE | 2016-05-27 07:55 | PHACANCOPD ---
PHARMACY VANCOMYCIN DOSING Pt Demographics Demographics Patient Age:89 , Weight:49.500 , Gender: female Adjusted Body Weight Date: 05/24/16, Adjusted Body Weight: Kg Events Past 24 Hours Events Past 24 Hours: NO: Change in CrCl, Dialysis, Diuretic Therapy, Elevation in WBC, Fever, Other, Pending Diagnostics, Pending Procedures Vancomycin Vancomycin indication: aspiration pneumonia Vancomycin Target Ranges: 15-20 mcg/ml Vancomycin Load Y/N: Yes Load Dose Date Time Vancomycin Load Dose: 1250mg Date: 05/24/16 Time: 750mg@08, 500mg@11 Vancomycin Dose Date: 05/24/16. Current Vancomycin Dose: [750mg IV Q24H@08] Intermittent Dosing?: No Labs Labs Item Value Date Time White Blood Count 24.1 K/mm3 H 05/25/16 0754 White Blood Count 18.1 K/mm3 H 05/26/16 0447 White Blood Count 15.0 K/mm3 H 05/27/16 0653 Creatinine 1.58 MG/DL H 05/24/16 0424 Creatinine 1.58 MG/DL H 05/25/16 0754 Creatinine 1.18 MG/DL H 05/26/16 0447 Creatinine 0.85 MG/DL 05/27/16 0653 Vancomycin Level Trough 18.2 UG/ML 05/27/16 0653 Micro Microbiology 05/18/16 Blood Culture - Final, Complete NO GROWTH AFTER 5 DAYS 05/18/16 Blood Culture - Final, Complete NO GROWTH AFTER 5 DAYS 05/24/16 Gram Stain - Final, Complete 05/24/16 Sputum Culture - Final, Complete Yeast Like Organism 05/24/16 MRSA Screen - Final, Complete 05/25/16 Urine Culture, Received Pending Creatinine Clearance Date:05/27/16. Creatinine Clearance: [35.75 ML/MIN]. Date:05/24/16. Estimated Creatinine Clearance: ~[19.2ml/min]. Assessment and Plan Maintaining Current Dose?: Yes Reason for dose change: No Dose Change Pharmacist Note Pharmacist Note Date: 05/27/16. Pharmacist note: Patients trough returned @18.2 after 3 doses. Continue current dosing and monitor renal function. Consider drawing another trough in a couple of days. Date: 05/24/16. Pharmacist note: Day #1 empiric vancomycin initiated with a 1250mg loading dose followed by a maintenance regimen of 750mg IV Q24H to be given with meropenem for the treatment of aspiration pneumonia - aiming for a goal trough of 15-20mcg/ml. WBC and CRP are elevated, and patient has been mildly febrile within the past 24 hours. 05/23 CXR resulted new bilateral lower lobe infiltrates. No PMH of MRSA, but patient does have a hx of vanco use here at [facility] back in March 2016. Scr is currently elevated at 1.58 today, with a baseline ~ 0.90. Blood cultures are negative, and sputum cultures are pending. We will continue to monitor kidney function and schedule a trough level accordingly. [facility] May 27, 2016 07:55
[2016-05-27] MEDS: VANCOMYCIN HCL 750 MG, VIAL MATE ADAPTER 1 EACH in D5W 250 ML IV SCH (08:50)
[2016-05-27] MEDS: LOPERAMIDE 2 MG CAP PO SCH ×3 (09:00→21:00)
[2016-05-27] MEDS: LANSOPRAZOLE SUSPENSION 30 MG/10 ML ORAL SYRINGE (FIRST-LANSOPRAZOLE) PO SCH ×2 (09:54→21:00)
[2016-05-27] MEDS: LACOSAMIDE 50 MG TAB (VIMPAT) PO SCH ×2 (09:55→21:45)
[2016-05-27] MEDS: LACTOBACILLUS ACIDOPHILUS CAP (BACID) PO SCH ×2 (09:55→21:44)
[2016-05-27] MEDS: ALPRAZolam 0.25 MG TAB PO SCH ×4 (09:55→19:00)
[2016-05-27] MEDS ORDERED: BISACODYL 10 MG SUPP PR ONE (12:15)
--- NOTE | 2016-05-27 14:34 | IPNPDOC ---
Text Note Date of Service The patient was seen on 05/27/16. NOTE Subjective: Nonverbal. Tolerating tube feeds at a lower rate. No bowel movements for 5 days. Objective: PHYSICAL EXAMINATION: Vitals: (see below) General: No acute distress, laying comfortably in bed. HEENT: Moist mucous membranes. Neck: No JVD or lymphadenopathy Cardiac: RRR, No murmurs Pulm: Coarse crackles b/l bases. No wheezing, rhonchi Abd: NT/ND + BS Ext: No edema or cyanosis LABORATORY DATA: See below. IMAGING: CT Chest 05/18/16 Impression: 1. Almost complete resolution of the left lower lobe consolidation. Small left lower lobe pleural effusion with left lower lobe atelectasis remains. 2. Stable cardiomegaly with tiny pericardial effusion. 3. Scoliosis with compression fractures of the lumbar spine are unchanged. MICROBIOLOGY: Please see below. ASSESSMENT/PLAN: 1. Acute hypoxic respiratory failure likely secondary to aspiration pneumonia, which is recurrent. Recently had GJ-tube placed on 05/[address] Vaca. Had a large emesis and aspirated again shortly after and was on a nonrebreather, which has been titrated down to 5 L nasal cannula. Patient was made DNR/DNI on . Continue current meropenem. Discontinue vancomycin. 2. 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 Advanced Alzheimer's, bedridden, minimally verbal 4. Hypothyroidism- continue Synthroid 5. Seizure disorder- continue home meds 6. History of CVA 7. Severe protein calorie malnutrition status post GJ tube 8. Constipation- suppository DVT prophylaxis enoxaparin VS,Fishbone, I+O VS, Fishbone, I+O Laboratory Tests 05/27/16 06:53 Calcium Level 7.5 L, Aspartate Amino Transf (AST/SGOT) 132 H, Alanine Aminotransferase (ALT/SGPT) 69, Alkaline Phosphatase 67, Total Bilirubin 0.5 #, Total Protein 5.0 L, Albumin 2.2 L, Red Blood Count 3.26 L, Mean Corpuscular Volume 90.5, Mean Corpuscular Hemoglobin 29.1, Mean Corpuscular Hemoglobin Concent 32.1, Red Cell Distribution Width 15.3 H Vital Signs Date Time Temp Pulse Resp B/P Pulse Ox O2 Delivery O2 Flow Rate FiO2 05/27/16 12:00 97.1 87 20 162/58 91 Aerosol Mask 5.0 28 I&O- Last 24 Hours up to 6 AM 05/27/16 06:00 Intake Total 3046 ml Output Total 1925 ml Balance 1121 ml GIANFRANCO ATWOOD MD May 27, 2016 14:34
[2016-05-27] MEDS: ACETAMINOPHEN 650 MG SUPP PR PRN (21:44)
[2016-05-27] MEDS: MIRTAZAPINE 15 MG TAB PO SCH (21:44)
[2016-05-28] MEDS: IPRATROPIUM 0.5MG/ALBUTEROL 2.5MG INH SOL UD 3ML (DUONEB)(J7620) NEB PRN ×5 (03:53→22:26)
[2016-05-28 03:59] VITALS: BP 158/72
[2016-05-28 05:58] LABS: INR 3.29
[2016-05-28] MEDS: SLF 3 ML SYR IV SCH ×3 (06:00→22:00)
[2016-05-28 06:01] LABS: MEAN CORPUSCULAR HEMOGLOBIN 29.2 pg (27.0-33.0); MEAN CORPUSCULAR HGB CONC 31.9 g/dl (32.0-36.5); MEAN CORPUSCULAR VOLUME 91.4 fl (80.0-96.0); RED CELL DISTRIBUTION WIDTH 15.1 % (11.5-14.5); WHITE BLOOD COUNT 16.4 K/mm3 (4.0-10.0)
[2016-05-28 06:09] LABS: ALBUMIN/GLOBULIN RATIO 0.59 (1.00-1.93); ALKALINE PHOSPHATASE 79 U/L (45-117); ALT/SGPT 64 U/L (12-78); ANION GAP 7 MEQ/L (8-16); AST/SGOT 58 U/L (15-37); BILIRUBIN,TOTAL 0.5 MG/DL (0.2-1.0); BLOOD UREA NITROGEN 19 MG/DL (7-18); CALCIUM LEVEL 7.7 MG/DL (8.8-10.2); CARBON DIOXIDE LEVEL 25 MEQ/L (21-32); CHLORIDE LEVEL 110 MEQ/L (98-107); GLOMERULAR FILTRATION RATE > 60.0 (>32); GLUCOSE, FASTING 111 MG/DL (83-110); POTASSIUM SERUM 3.6 MEQ/L (3.5-5.1); SODIUM LEVEL 142 MEQ/L (136-145); TOTAL PROTEIN 5.4 GM/DL (6.4-8.2)
[2016-05-28] MEDS: LEVOTHYROXINE 0.075 MG TAB (75 MCG) PO SCH (06:45)
[2016-05-28] MEDS: SUCRALFATE SUSP 1GM/10ML UD PO SCH ×3 (06:45→17:48)
[2016-05-28] MEDS: MEROPENEM INJ 1 GM in D5W MINI-BAG PLUS 100 ML IV SCH ×3 (06:45→23:00)
[2016-05-28] MEDS: NS 1,000 ML IV SCH (07:00)
[2016-05-28 08:00] VITALS: BP 143/70
[2016-05-28] MEDS: LOPERAMIDE 2 MG CAP PO SCH ×3 (09:00→20:58)
[2016-05-28] MEDS: LACTOBACILLUS ACIDOPHILUS CAP (BACID) PO SCH ×2 (09:32→20:43)
[2016-05-28] MEDS: LACOSAMIDE 50 MG TAB (VIMPAT) PO SCH ×2 (09:32→20:43)
[2016-05-28] MEDS: ALPRAZolam 0.25 MG TAB PO SCH ×4 (09:32→20:57)
[2016-05-28] MEDS: LANSOPRAZOLE SUSPENSION 30 MG/10 ML ORAL SYRINGE (FIRST-LANSOPRAZOLE) PO SCH ×2 (09:33→20:43)
[2016-05-28 12:00] VITALS: BP 165/85
[2016-05-28] MEDS: FLUCONAZOLE 200 MG in APPROPRIATE DILUENT 1 EA IV SCH (12:34)
[2016-05-28] MEDS: NYSTATIN 100,000 UNITS/GM TOPICAL PWD 15 GM TOP PRN (12:35)
--- NOTE | 2016-05-28 15:06 | IPNPDOC ---
Text Note Date of Service The patient was seen on 05/28/16. NOTE Subjective: Nonverbal. Had a small BM. Objective: PHYSICAL EXAMINATION: Vitals: (see below) General: No acute distress, laying comfortably in bed. HEENT: Moist mucous membranes. Neck: No JVD or lymphadenopathy Cardiac: RRR, No murmurs Pulm: Coarse crackles b/l bases. No wheezing. +rhonchi Abd: NT/ND + BS. G-J tube with some erythema developing around it. No induration. Ext: No edema or cyanosis LABORATORY DATA: See below. IMAGING: CT Chest 05/18/16 Impression: 1. Almost complete resolution of the left lower lobe consolidation. Small left lower lobe pleural effusion with left lower lobe atelectasis remains. 2. Stable cardiomegaly with tiny pericardial effusion. 3. Scoliosis with compression fractures of the lumbar spine are unchanged. MICROBIOLOGY: Please see below. ASSESSMENT/PLAN: 1. Acute hypoxic respiratory failure likely secondary to aspiration pneumonia, which is recurrent. Recently had GJ-tube placed on 05/[address] Vaca. Had a large emesis and aspirated again shortly after and was on a nonrebreather, which has been titrated down to 5 L nasal cannula. Patient was made DNR/DNI on . Continue current meropenem. Discontinue vancomycin. In light of sputum culture and urine culture positive for yeast, and the patient's spiking fevers last night with developing cellulitis around the PEG tube, the patient will be started on fluconazole. I did speak with the daughter and states that the patient did not have an allergy to fluconazole, but rather had an elevation of the INR secondary to fluconazole. 2. 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 Advanced Alzheimer's, bedridden, minimally verbal 4. Hypothyroidism- continue Synthroid 5. Seizure disorder- continue home meds 6. History of CVA 7. Severe protein calorie malnutrition status post GJ tube 8. Constipation- suppository DVT prophylaxis enoxaparin I have discussed the possibility of [employer], however the patient would like to keep the patient's DNR/DNI at this time. VS,Fishbone, I+O VS, Fishbone, I+O Laboratory Tests 05/28/16 05:27 Calcium Level 7.7 L, Aspartate Amino Transf (AST/SGOT) 58 H, Alanine Aminotransferase (ALT/SGPT) 64, Alkaline Phosphatase 79, Total Bilirubin 0.5, Total Protein 5.4 L, Albumin 2.0 L, Red Blood Count 3.57 L, Mean Corpuscular Volume 91.4, Mean Corpuscular Hemoglobin 29.2, Mean Corpuscular Hemoglobin Concent 31.9 L, Red Cell Distribution Width 15.1 H Vital Signs Date Time Temp Pulse Resp B/P Pulse Ox O2 Delivery O2 Flow Rate FiO2 05/28/16 12:00 98.0 97 20 165/85 95 Aerosol Mask 5.0 28 I&O- Last 24 Hours up to 6 AM 05/28/16 06:00 Intake Total 2625 ml Output Total 2475 ml Balance 150 ml GIANFRANCO ATWOOD MD May 28, 2016 15:06
[2016-05-28 16:00] VITALS: BP 156/75
[2016-05-28 19:35] VITALS: BP 116/65
[2016-05-28] MEDS: ACETAMINOPHEN 650 MG SUPP PR PRN (20:45)
[2016-05-28] MEDS: MIRTAZAPINE 15 MG TAB PO SCH (22:05)
[2016-05-28 23:04] VITALS: BP 140/63
[2016-05-29 04:19] VITALS: BP 114/58
[2016-05-29 05:55] LABS: MEAN CORPUSCULAR HGB CONC 32.3 g/dl (32.0-36.5); MEAN CORPUSCULAR VOLUME 89.9 fl (80.0-96.0); RED CELL DISTRIBUTION WIDTH 15.2 % (11.5-14.5); WHITE BLOOD COUNT 17.4 K/mm3 (4.0-10.0)
[2016-05-29 06:00] LABS: INR 3.15
[2016-05-29] MEDS: LEVOTHYROXINE 0.075 MG TAB (75 MCG) PO SCH (06:00)
[2016-05-29] MEDS: SLF 3 ML SYR IV SCH ×3 (06:00→22:00)
[2016-05-29 06:12] LABS: ALBUMIN 1.8 GM/DL (3.2-5.2); ALBUMIN/GLOBULIN RATIO 0.55 (1.00-1.93); ALKALINE PHOSPHATASE 75 U/L (45-117); ALT/SGPT 37 U/L (12-78); ANION GAP 5 MEQ/L (8-16); AST/SGOT 22 U/L (15-37); BILIRUBIN,TOTAL 0.4 MG/DL (0.2-1.0); BLOOD UREA NITROGEN 15 MG/DL (7-18); CALCIUM LEVEL 7.5 MG/DL (8.8-10.2); CARBON DIOXIDE LEVEL 26 MEQ/L (21-32); CHLORIDE LEVEL 111 MEQ/L (98-107); CREATININE FOR GFR 0.73 MG/DL (0.55-1.02); GLOMERULAR FILTRATION RATE > 60.0 (>32); GLUCOSE, FASTING 85 MG/DL (83-110); POTASSIUM SERUM 3.6 MEQ/L (3.5-5.1); SODIUM LEVEL 142 MEQ/L (136-145); TOTAL PROTEIN 5.1 GM/DL (6.4-8.2)
[2016-05-29] MEDS: SUCRALFATE SUSP 1GM/10ML UD PO SCH ×3 (07:53→17:26)
[2016-05-29] MEDS: MEROPENEM INJ 1 GM in D5W MINI-BAG PLUS 100 ML IV SCH ×3 (07:53→22:48)
[2016-05-29 08:00] VITALS: BP 135/65
[2016-05-29] MEDS: ALPRAZolam 0.25 MG TAB PO SCH ×4 (09:00→19:00)
[2016-05-29] MEDS: LANSOPRAZOLE SUSPENSION 30 MG/10 ML ORAL SYRINGE (FIRST-LANSOPRAZOLE) PO SCH ×2 (09:12→21:00)
[2016-05-29] MEDS: LOPERAMIDE 2 MG CAP PO SCH ×3 (09:12→20:40)
[2016-05-29] MEDS: LACTOBACILLUS ACIDOPHILUS CAP (BACID) PO SCH ×2 (09:12→20:39)
[2016-05-29] MEDS: LACOSAMIDE 50 MG TAB (VIMPAT) PO SCH ×2 (09:13→20:40)
[2016-05-29] MEDS: IPRATROPIUM 0.5MG/ALBUTEROL 2.5MG INH SOL UD 3ML (DUONEB)(J7620) NEB PRN ×4 (09:41→23:50)
--- NOTE | 2016-05-29 11:48 | REP ---
PORTABLE CHEST: HISTORY: Congestion. COMPARISON: 05/24/2016 There is poor inspiratory effort. An increase in interstitial markings is present in the lungs, consistent with chronic interstitial fibrosis. Increased density is present in the left lower lobe, consistent with atelectasis or infiltrate. The cardiac silhouette is enlarged. The pulmonary vasculature is prominent. IMPRESSION: 1. Chronic interstitial fibrosis. 2. Left lower lobe atelectasis or infiltrate. 3. Cardiomegaly. Signed by Emmett Estes MD 05/29/2016 11:49 A
[2016-05-29 12:00] VITALS: BP 145/63
[2016-05-29] MEDS: FLUCONAZOLE 200 MG in APPROPRIATE DILUENT 1 EA IV SCH (12:15)
[2016-05-29] MEDS ORDERED: BISACODYL 10 MG SUPP PR PRN (14:45)
--- NOTE | 2016-05-29 15:11 | IPNPDOC ---
Text Note Date of Service The patient was seen on 05/29/16. NOTE Subjective: Nonverbal. No BM today. No acute changes overnight. Objective: PHYSICAL EXAMINATION: Vitals: (see below) General: No acute distress, laying comfortably in bed. HEENT: Moist mucous membranes. Neck: No JVD or lymphadenopathy Cardiac: RRR, No murmurs Pulm: Coarse crackles b/l bases. No wheezing. +rhonchi Abd: NT/ND + BS. G-J tube with some erythema developing around it, improving. No induration. Ext: No edema or cyanosis LABORATORY DATA: See below. IMAGING: CT Chest 05/18/16 Impression: 1. Almost complete resolution of the left lower lobe consolidation. Small left lower lobe pleural effusion with left lower lobe atelectasis remains. 2. Stable cardiomegaly with tiny pericardial effusion. 3. Scoliosis with compression fractures of the lumbar spine are unchanged. MICROBIOLOGY: Please see below. ASSESSMENT/PLAN: 1. Acute hypoxic respiratory failure likely secondary to aspiration pneumonia, which is recurrent. Recently had GJ-tube placed on 05/[address] Vaca. Had a large emesis and aspirated again shortly after and was on a nonrebreather, which has been titrated down to 8 L nasal cannula. Patient was made DNR/DNI on . Continue current meropenem. Discontinue vancomycin. In light of sputum culture and urine culture positive for yeast, and the patient's spiking fevers last night with developing cellulitis around the PEG tube, the patient was started on fluconazole. I did speak with the daughter and states that the patient did not have an allergy to fluconazole, but rather had an elevation of the INR secondary to fluconazole. 2. 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 Advanced Alzheimer's, bedridden, minimally verbal 4. Hypothyroidism- continue Synthroid 5. Seizure disorder- continue home meds 6. History of CVA 7. Severe protein calorie malnutrition status post GJ tube 8. Constipation- suppository DVT prophylaxis enoxaparin I have discussed the possibility of DIRECTOR OF CAREER SERVICES, however the patient would like to keep the patient's DNR/DNI at this time. VS,Fishbone, I+O VS, Fishbone, I+O Laboratory Tests 05/29/16 05:43 Calcium Level 7.5 L, Aspartate Amino Transf (AST/SGOT) 22, Alanine Aminotransferase (ALT/SGPT) 37, Alkaline Phosphatase 75, Total Bilirubin 0.4, Total Protein 5.1 L, Albumin 1.8 L, Red Blood Count 3.34 L, Mean Corpuscular Volume 89.9, Mean Corpuscular Hemoglobin 29.0, Mean Corpuscular Hemoglobin Concent 32.3, Red Cell Distribution Width 15.2 H Vital Signs Date Time Temp Pulse Resp B/P Pulse Ox O2 Delivery O2 Flow Rate FiO2 05/29/16 12:00 99.0 93 18 145/63 96 Aerosol Mask 8.0 35 I&O- Last 24 Hours up to 6 AM 05/29/16 06:00 Intake Total 1510 ml Output Total 1450 ml Balance 60 ml GIANFRANCO ATWOOD MD May 29, 2016 15:11
[2016-05-29] MEDS: MIRTAZAPINE 15 MG TAB PO SCH (20:40)
[2016-05-29] MEDS: ACETAMINOPHEN TAB 650MG DOSE (2X325MG) PO PRN (20:41)
[2016-05-29 22:00] VITALS: BP 177/79
[2016-05-29 23:51] VITALS: O2SAT 96
[2016-05-30] MEDS: IPRATROPIUM 0.5MG/ALBUTEROL 2.5MG INH SOL UD 3ML (DUONEB)(J7620) NEB PRN ×6 (03:30→23:38)
[2016-05-30 03:31] VITALS: O2SAT 97
[2016-05-30 06:00] VITALS: BP 179/78
[2016-05-30] MEDS: SLF 3 ML SYR IV SCH ×3 (06:00→22:00)
[2016-05-30] MEDS: MEROPENEM INJ 1 GM in D5W MINI-BAG PLUS 100 ML IV SCH ×2 (06:00→16:22)
[2016-05-30] MEDS: LEVOTHYROXINE 0.075 MG TAB (75 MCG) PO SCH (06:00)
[2016-05-30 06:58] LABS: MEAN CORPUSCULAR HEMOGLOBIN 28.8 pg (27.0-33.0); MEAN CORPUSCULAR HGB CONC 31.9 g/dl (32.0-36.5); MEAN CORPUSCULAR VOLUME 90.4 fl (80.0-96.0); RED CELL DISTRIBUTION WIDTH 15.3 % (11.5-14.5); WHITE BLOOD COUNT 19.6 K/mm3 (4.0-10.0)
[2016-05-30 07:02] LABS: INR 2.28
[2016-05-30 07:06] LABS: ALBUMIN 2.1 GM/DL (3.2-5.2); ALBUMIN/GLOBULIN RATIO 0.62 (1.00-1.93); ALKALINE PHOSPHATASE 93 U/L (45-117); ALT/SGPT 34 U/L (12-78); ANION GAP 8 MEQ/L (8-16); AST/SGOT 20 U/L (15-37); BILIRUBIN,TOTAL 0.5 MG/DL (0.2-1.0); BLOOD UREA NITROGEN 13 MG/DL (7-18); CARBON DIOXIDE LEVEL 26 MEQ/L (21-32); CHLORIDE LEVEL 107 MEQ/L (98-107); CREATININE FOR GFR 0.75 MG/DL (0.55-1.02); GLOMERULAR FILTRATION RATE > 60.0 (>32); GLUCOSE, FASTING 109 MG/DL (83-110); POTASSIUM SERUM 3.8 MEQ/L (3.5-5.1); SODIUM LEVEL 141 MEQ/L (136-145); TOTAL PROTEIN 5.5 GM/DL (6.4-8.2)
[2016-05-30] MEDS: ALPRAZolam 0.25 MG TAB PO SCH ×4 (08:17→18:23)
[2016-05-30] MEDS ORDERED: GASTROGRAFIN SOLUTION 30ML PO ONE (08:30)
[2016-05-30] MEDS: SUCRALFATE SUSP 1GM/10ML UD PO SCH ×3 (08:52→16:22)
[2016-05-30] MEDS: LACTOBACILLUS ACIDOPHILUS CAP (BACID) PO SCH ×2 (08:53→21:00)
[2016-05-30] MEDS: LANSOPRAZOLE SUSPENSION 30 MG/10 ML ORAL SYRINGE (FIRST-LANSOPRAZOLE) PO SCH ×2 (08:53→21:27)
[2016-05-30] MEDS: LOPERAMIDE 2 MG CAP PO SCH (08:54)
[2016-05-30] MEDS: LACOSAMIDE 50 MG TAB (VIMPAT) PO SCH ×2 (08:54→21:27)
[2016-05-30] MEDS ORDERED: GASTROGRAFIN SOLUTION 30ML (Q9963) PO ONE (09:00)
[2016-05-30] MEDS ORDERED: ISOVUE-370 76% 100ML VIAL (Q9967) As Ordered ONE (09:42)
[2016-05-30 10:00] VITALS: BP 146/60
--- NOTE | 2016-05-30 12:10 | REP ---
CT abdomen pelvis with IV and oral contrast: Comparison is 03/20/2016. There is atelectasis in the visualized right lower lobe and left lower lobe. I suspect there are small bilateral pleural effusions. I suspect there is a pericardial effusion at the cardiac apex measuring 18 mm depth. Patient has had interval placement of a PEG tube. The tube enters from the anterior abdominal wall. There is induration of the subcutaneous fat at the tube entrance site. No focal fluid collection to suggest abscess or hematoma is identified.. The tube enters the gastric gastric antrum and duodenal loop and terminates and proximal jejunal loops. There is no pneumoperitoneum. There is no ascites. There is no focal intraperitoneal fluid collection to suggest abscess or hematoma. There is no ascites. There is no gastric or bowel distension. The pancreas, spleen, adrenals and kidneys are unremarkable. There is no bowel distension. However, there is a large volume of fecal residue throughout the colon compatible with constipation. There is subcutaneous emphysema along the anterior left lateral abdominal wall extending medially almost to the tube entrance site. Deep to the subcutaneous emphysema within the muscular layers of the anterolateral abdominal wall on the left. There is intrahepatic biliary duct dilatation, likely secondary to post cholecystectomy state. The common biliary duct measures up to 13 mm in diameter, slightly dilated (11 mm, upper normal post cholecystectomy state). There is a subcapsular fluid collection along the anterior margin of the liver measuring 18 mm depth, possibly a subcapsular hematoma, not present previously. Pelvis: The uterus and adnexa are unremarkable. Yee catheter in the urinary bladder. There is no ascites. There is sigmoid colon diverticulosis without diverticulitis. There is bilateral hip osteoarthritis. There is degenerative disc disease throughout the lumbar spine. There are compression deformities of many of the lower thoracic and lumbar vertebra. There are vertebroplasties in the T12 and L1 vertebral bodies. There is edema in the subcutaneous soft tissues of the abdominal wall. This is focally worse lateral to the left hip and M unable to exclude a focal fluid collection in the subcutaneous soft tissues in this location. Correlate with clinical palpation. Impression: There is induration in the anterior abdominal wall adjacent to the peg tube entrance site. This could represent abdominal wall trauma from tube placement or inflammation. No focal abscess is identified. There is no intraperitoneal focal fluid collection to suggest abscess along the course of the tube. The distal tip of the tube is in proximal jejunal loops. There is a subcapsular fluid collection along the anterior margin of the liver, not present previously, possibly subcapsular hematoma. There is intra hepatic and extrahepatic biliary duct dilatation as discussed, possibly secondary to post cholecystectomy state. There is a large amount of fecal residue throughout the colon compatible with constipation. There is a Yee catheter. There is no ascites or adenopathy. There is edema in the subcutaneous abdominal wall soft tissues compatible with anasarca. This is focally worse lateral to the left hip and I am unable to exclude a focal fluid collection in the subcutaneous soft tissues in this location. Correlate with clinical palpation. Signed by Bonifacio Lara MD 05/30/2016 12:02 P
[2016-05-30] MEDS: FLUCONAZOLE 200 MG in APPROPRIATE DILUENT 1 EA IV SCH (12:57)
--- NOTE | 2016-05-30 13:42 | IPNPDOC ---
Text Note Date of Service The patient was seen on 05/30/16. NOTE Subjective: Nonverbal. No BM today. No acute changes overnight. Objective: PHYSICAL EXAMINATION: Vitals: (see below) General: No acute distress, laying comfortably in bed. HEENT: Moist mucous membranes. Neck: No JVD or lymphadenopathy Cardiac: RRR, No murmurs Pulm: Coarse crackles b/l bases. No wheezing. +rhonchi Abd: NT/ND + BS. G-J tube with erythema extending to left flank region. Induration noted today. Ext: No edema or cyanosis LABORATORY DATA: See below. IMAGING: CT Chest 05/18/16 Impression: 1. Almost complete resolution of the left lower lobe consolidation. Small left lower lobe pleural effusion with left lower lobe atelectasis remains. 2. Stable cardiomegaly with tiny pericardial effusion. 3. Scoliosis with compression fractures of the lumbar spine are unchanged. MICROBIOLOGY: Please see below. ASSESSMENT/PLAN: 1. Acute hypoxic respiratory failure likely secondary to aspiration pneumonia, which is recurrent. Recently had GJ-tube placed on 05/[address] Vaca. Had a large emesis and aspirated again shortly after and was on a nonrebreather, which has been titrated down to 8 L nasal cannula. Patient was made DNR/DNI on . Continue current meropenem. Discontinue vancomycin. In light of sputum culture and urine culture positive for yeast, and the patient's spiking fevers last night with developing cellulitis around the PEG tube, the patient was started on fluconazole. I did speak with the daughter and states that the patient did not have an allergy to fluconazole, but rather had an elevation of the INR secondary to fluconazole. 2. Persistent leukocytosis- concern for abscess, as patient is on broad- spectrum antibiotics and antifungal. Patient did have a CT abdomen and pelvis today with questionable abdominal wall abscess, especially given the increased induration surrounding the PEG tube site. Dr. Xiong has been consulted and will evaluate the patient. 3. 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 Advanced Alzheimer's, bedridden, minimally verbal 5. Hypothyroidism- continue Synthroid 6. Seizure disorder- continue home meds 7. History of CVA 8. Severe protein calorie malnutrition status post GJ tube 9. Constipation- suppository DVT prophylaxis enoxaparin DNR/DNI VS,Fishbone, I+O VS, Fishbone, I+O Laboratory Tests 05/30/16 06:26 Calcium Level 8.0 L, Aspartate Amino Transf (AST/SGOT) 20, Alanine Aminotransferase (ALT/SGPT) 34, Alkaline Phosphatase 93, Total Bilirubin 0.5, Total Protein 5.5 L, Albumin 2.1 L, Red Blood Count 3.84 L, Mean Corpuscular Volume 90.4, Mean Corpuscular Hemoglobin 28.8, Mean Corpuscular Hemoglobin Concent 31.9 L, Red Cell Distribution Width 15.3 H Vital Signs Date Time Temp Pulse Resp B/P Pulse Ox O2 Delivery O2 Flow Rate FiO2 05/30/16 12:36 Aerosol Mask 8.0 28 05/30/16 11:28 97 05/30/16 10:00 98.3 17 146/60 98 I&O- Last 24 Hours up to 6 AM 05/30/16 06:00 Intake Total 410 ml Output Total 2575 ml Balance -2165 ml GIANFRANCO ATWOOD MD May 30, 2016 13:42
[2016-05-30 14:00] VITALS: BP 150/70
[2016-05-30] MEDS ORDERED: BISACODYL ENEMA 10 MG/30 ML PR ONE (14:00)
--- NOTE | 2016-05-30 15:36 | CR ---
DATE OF CONSULTATION: 05/30/2016 REASON FOR CONSULTATION: Elevated white count and recent gastrostomy tube placement one week ago. BRIEF HISTORY OF PRESENT ILLNESS: The patient is an 89-year-old female who was admitted for aspiration pneumonia, presents for this aspiration pneumonia and has had advanced Alzheimer's disease, bedridden, nonverbal, and initially had been treated with honey-thickened diet, but presented because of this aspiration issue and with elevated fever temperature. When she first came in she presented with a white count of 12.5 and temperature was normal, but prior to admission an elevated temperature. I have been asked to see her because of after having an ultrasound guided gastrostomy placement she has been having an elevated white count for days and now had a CT scan of her abdomen and pelvis because of an increasing white count that showed some air in the subcutaneous tissue and some anasarca, some fluid, but no specific abscess to drain. She had some significant erythema around her abdominal wall that was present and this was seen to be improving over the last several days and is much less extensive. She had some fluid collection around her G-tube site itself and this is not a true abscess at this time on the CT scan and with some thickening within the subcutaneous tissue. She has significant anasarca. PAST MEDICAL HISTORY: Significant for history of Alzheimer's disease, history of deep venous thrombosis (DVT), history of cerebrovascular accident (CVA), history of hypothyroidism, history of hypoxia, history of aspiration pneumonia, history of back surgery, history of open cholecystectomy. MEDICATIONS: Include: - Colace - Coumadin - Dulcolax suppository - nystatin - fluocinolone - meropenem - nebulizers - Carafate - Pepcid - Remeron - Vimpat - Bacid - xanax - Synthroid - Tylenol - Zofran PHYSICAL EXAMINATION: Reveals an unresponsive 89-year-old who looks stated age. Her abdominal wall reveals mild erythema around the G-tube site. There is no true fluctuance appreciated, but it is indurated in this area. Family states that this redness has significantly improved, much less deep red and less extensive along the abdominal wall. I cannot feel the subcutaneous air that is appreciated on her CT scan and she has a nontender abdomen. There is no significant drainage around the G-tube site itself. IMPRESSION/PLAN: 1. The patient has an elevated white count. Her CT scan does show bibasilar atelectasis with air bronchograms, all consistent with a possible pneumonia and given her elevated white count I would not be surprised if this is the etiology for her white count. 2. G-tube site. She had probably a traumatic insertion and did have a hematoma on the liver. Does not appear to be abscessed. I anticipate this should resolve over time. I am not seeing any intraabdominal fluid around the G-tube insertion site and thus a leaking G-tube is unlikely as well. She may have a localized cellulitis around the G-tube insertion site on the skin, but I am not seeing any significant abscess that needs drainage at this time. However, it may be reasonable to repeat her CT scan in a few days if she has ongoing elevated leukocytosis. The air that is in the subcutaneous tissue is not uncommon after G-tube insertion and given the extensive nature without any significant inflammatory components with the air itself, suggests that this is unlikely secondary to a necrotizing fasciitis and given that this is many days out, and with improvement of the erythema, also is very unlikely that this is a necrotizing fasciitis. I anticipate if she has a followup CT scan in two to three days, that this also should be decreasing in size and amount. She does have a significant amount of stool on her x-ray and starting up some Colace is very reasonable for her at this point. Continue her on her antibiotics. Should adequately cover any skin infection or G-tube site infection if there is any present. I will follow this patient with you.
[2016-05-30 15:59] VITALS: O2SAT 99
--- NOTE | 2016-05-30 16:00 | REP ---
CT CHEST WITH IV CONTRAST: CT ANGIO CHEST: TECHNIQUE: Axial contrast enhanced images from the thoracic inlet to the upper abdomen using 100 mL Isovue 370 intravenous contrast material with multiplanar reformations. COMPARISON: 05/18/2016 There is increased patchy atelectasis/infiltrate inferiorly bilaterally. There are small bilateral pleural effusions which have mildly increased. No significant adenopathy is seen in the mediastinal or hilar regions. There are atherosclerotic calcifications of the thoracic aorta without aneurysm. There is a small pericardial effusion. The heart is somewhat enlarged. There is a moderate hiatal hernia. There are degenerative changes of the spine. There is are stable compresssion deformities of the lower thoracic spine with evidence of prior kyphoplasty at two consecutive levels. IMPRESSION: Increased atelectasis/infiltrate in each lung base with slight increase in small bilateral effusions. Small pericardial effusion. Signed by Bonifacio Heaton MD 05/30/2016 05:40 P
[2016-05-30] MEDS: WARFARIN SOD 2.5 MG TAB PO SCH (16:23)
[2016-05-30] MEDS ORDERED: DOCUSATE SOD LIQ 100MG/10ML UDC PO SCH (21:00)
[2016-05-30] MEDS: ACETAMINOPHEN 325 MG/10.15 ML UDC GT PRN (21:26)
[2016-05-30] MEDS: DOCUSATE SOD LIQ 100MG/10ML UDC PO SCH (21:27)
[2016-05-30] MEDS: MIRTAZAPINE 15 MG TAB PO SCH (21:27)
[2016-05-30 22:00] VITALS: BP 128/64
[2016-05-31] MEDS: IPRATROPIUM 0.5MG/ALBUTEROL 2.5MG INH SOL UD 3ML (DUONEB)(J7620) NEB PRN ×6 (04:09→23:31)
[2016-05-31 04:10] VITALS: O2SAT 99
[2016-05-31 06:00] VITALS: BP 148/62
[2016-05-31] MEDS: LEVOTHYROXINE 0.075 MG TAB (75 MCG) PO SCH (06:00)
[2016-05-31] MEDS: SLF 3 ML SYR IV SCH ×3 (06:00→21:59)
[2016-05-31 06:34] LABS: MEAN CORPUSCULAR HEMOGLOBIN 29.4 pg (27.0-33.0); MEAN CORPUSCULAR HGB CONC 32.3 g/dl (32.0-36.5); RED CELL DISTRIBUTION WIDTH 15.4 % (11.5-14.5); WHITE BLOOD COUNT 14.9 K/mm3 (4.0-10.0)
[2016-05-31 06:40] LABS: INR 2.78
[2016-05-31 07:11] LABS: ALBUMIN/GLOBULIN RATIO 0.53 (1.00-1.93); ALKALINE PHOSPHATASE 96 U/L (45-117); ALT/SGPT 30 U/L (12-78); ANION GAP 6 MEQ/L (8-16); AST/SGOT 20 U/L (15-37); BILIRUBIN,TOTAL 0.4 MG/DL (0.2-1.0); BLOOD UREA NITROGEN 15 MG/DL (7-18); CARBON DIOXIDE LEVEL 26 MEQ/L (21-32); CHLORIDE LEVEL 105 MEQ/L (98-107); CREATININE FOR GFR 0.81 MG/DL (0.55-1.02); GLOMERULAR FILTRATION RATE > 60.0 (>32); GLUCOSE, FASTING 112 MG/DL (83-110); POTASSIUM SERUM 3.5 MEQ/L (3.5-5.1); SODIUM LEVEL 137 MEQ/L (136-145); TOTAL PROTEIN 5.8 GM/DL (6.4-8.2)
[2016-05-31] MEDS: SUCRALFATE SUSP 1GM/10ML UD PO SCH ×3 (07:30→17:30)
[2016-05-31] MEDS ORDERED: MOM 30ML SUSPENSION UDC PO PRN (08:00)
[2016-05-31] MEDS: DOCUSATE SOD LIQ 100MG/10ML UDC PO SCH ×3 (08:09→21:59)
[2016-05-31] MEDS: LANSOPRAZOLE SUSPENSION 30 MG/10 ML ORAL SYRINGE (FIRST-LANSOPRAZOLE) PO SCH ×3 (08:09→21:58)
[2016-05-31] MEDS: LACTOBACILLUS ACIDOPHILUS CAP (BACID) PO SCH (08:09)
[2016-05-31] MEDS: LACOSAMIDE 50 MG TAB (VIMPAT) PO SCH ×3 (08:10→21:57)
[2016-05-31] MEDS: ALPRAZolam 0.25 MG TAB PO SCH ×3 (08:10→17:44)
[2016-05-31] MEDS: MIRALAX *UNIT DOSE* 17GM PACKET PO SCH ×3 (08:10→21:00)
[2016-05-31 10:00] VITALS: BP 148/76
[2016-05-31] MEDS ORDERED: FUROSEMIDE 40 MG/4 ML VIAL (J1940) IV ONE (11:30)
[2016-05-31] MEDS: ACETAMINOPHEN 325 MG/10.15 ML UDC GT PRN (11:31)
[2016-05-31] MEDS: MAALOX 30 ML SUSP *UDC PO PRN (11:31)
[2016-05-31] MEDS: FLUCONAZOLE 200 MG in APPROPRIATE DILUENT 1 EA IV SCH (11:32)
--- NOTE | 2016-05-31 12:58 | ECHO ---
DATE OF PROCEDURE: 05/31/2016 REFERRING PHYSICIAN: Dr. Mckenna. INDICATION: Pericardial effusion. HEIGHT: 60 inches. WEIGHT: 104 pounds. No measurements were obtained. FINDINGS: The study is of very limited technical quality with difficult visualization. No routine measurements were obtained. Left ventricle is normal size and grossly normal systolic function. Right ventricle was poorly seen. Left atrium appears normal. Right atrium was poorly visualized. There is a small pericardial effusion adjacent to anterior wall. I do not appreciate any evidence for LV/LA collapse. Large segments of the heart and pericardium though were not well seen and I do not have any information regarding the pericardial space adjacent to the right ventricle. Aortic and mitral valve were reasonably well visualized. Aortic valve is sclerotic but appears normal. Mitral valve also appears to have degenerative abnormalities but mobility is preserved. Tricuspid and pulmonic valve were poorly visualized. Aortic root, aortic arch and abdominal aorta were not seen. By Doppler interrogation, there is no significant aortic or mitral valve disease. There was no interrogation of tricuspid and pulmonic valves. There is no fluctuation on mitral inflow velocities and only about 20% fluctuation on tricuspid mitral velocities with respiration. This argues against significance of pericardial effusion. CONCLUSIONS: 1. Study is of markedly limited technical quality. 2. Normal LV size with grossly preserved LV systolic function. 3. No significant aortic and mitral valve disease. 4. Right sided chambers and valves were not well seen. 5. Small principally anteriorly located pericardial effusion. 6. No evidence for hemodynamic significance. 7. Unable to estimate central venous pressure and pulmonary artery pressure. 8. Compared to echocardiogram from 03/20/2016, the technical quality today is even more limited than it was in February. I no longer appreciate segmental wall motion abnormality in septum and apex. Pericardial effusion appears to be approximately the same or possibly slightly larger. COMMENT: Subacute bacterial endocarditis (SBE) prophylaxis not recommended. MTDD
--- NOTE | 2016-05-31 13:14 | IPNPDOC ---
Text Note Date of Service The patient was seen on 05/31/16. NOTE Subjective: Nonverbal. At some. When drainage from the insertion site of the GJ tube. No acute changes overnight. Objective: PHYSICAL EXAMINATION: Vitals: (see below) General: No acute distress, laying comfortably in bed. HEENT: Moist mucous membranes. Neck: No JVD or lymphadenopathy Cardiac: RRR, No murmurs Pulm: Coarse crackles b/l bases. No wheezing. +rhonchi Abd: NT/ND + BS. G-J tube with erythema extending. Induration improving. Some purulent drainage at the insertion site. Ext: No edema or cyanosis LABORATORY DATA: See below. IMAGING: CT Chest 05/18/16 Impression: 1. Almost complete resolution of the left lower lobe consolidation. Small left lower lobe pleural effusion with left lower lobe atelectasis remains. 2. Stable cardiomegaly with tiny pericardial effusion. 3. Scoliosis with compression fractures of the lumbar spine are unchanged. MICROBIOLOGY: Please see below. ASSESSMENT/PLAN: 1. Acute hypoxic respiratory failure likely secondary to aspiration pneumonia, which is recurrent. Recently had GJ-tube placed on 05/[address] Vaca. Had a large emesis and aspirated again shortly after and was on a nonrebreather, which has been titrated down to 8 L nasal cannula. Patient was made DNR/DNI on . Continue current meropenem. Discontinue vancomycin.On fluconazole. Some purulent drainage from the GJ site which was sent for culture. 2. Persistent leukocytosis-improving. On broad-spectrum antibiotics and antifungal. Patient did have a CT abdomen and pelvis (see above). Appreciate Dr. Xiong's input. 3. 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 Advanced Alzheimer's, bedridden, minimally verbal 5. Hypothyroidism- continue Synthroid 6. Seizure disorder- continue home meds 7. History of CVA 8. Severe protein calorie malnutrition status post GJ tube 9. Constipation- suppository, Colace, MiraLAX. 10. Small pericardial effusion- echocardiogram pending 11. Subcapsular hematoma- discussed with Dr. Xiong, likely resolve on its own. DVT prophylaxis enoxaparin DNR/DNI VS,Fishbone, I+O VS, Fishbone, I+O Laboratory Tests 05/31/16 06:20 Calcium Level 8.0 L, Aspartate Amino Transf (AST/SGOT) 20, Alanine Aminotransferase (ALT/SGPT) 30, Alkaline Phosphatase 96, Total Bilirubin 0.4, Total Protein 5.8 L, Albumin 2.0 L, Red Blood Count 3.79 L, Mean Corpuscular Volume 91.0, Mean Corpuscular Hemoglobin 29.4, Mean Corpuscular Hemoglobin Concent 32.3, Red Cell Distribution Width 15.4 H Vital Signs Date Time Temp Pulse Resp B/P Pulse Ox O2 Delivery O2 Flow Rate FiO2 05/31/16 06:00 99.3 101 18 148/62 97 Nasal Cannula 2.0 05/31/16 04:10 28 I&O- Last 24 Hours up to 6 AM 05/31/16 06:00 Intake Total 1280 ml Output Total 2900 ml Balance -1620 ml GIANFRANCO ATWOOD MD May 31, 2016 13:14
[2016-05-31 14:00] VITALS: BP 130/60
[2016-05-31] MEDS: WARFARIN SOD 2.5 MG TAB PO SCH (17:44)
[2016-05-31] MEDS: ACETAMINOPHEN 650 MG SUPP PR PRN (19:09)
[2016-05-31] MEDS: MIRTAZAPINE 15 MG TAB PO SCH (21:00)
[2016-05-31 22:00] VITALS: BP 131/59
[2016-05-31] MEDS: MEROPENEM INJ 1 GM in D5W MINI-BAG PLUS 100 ML IV SCH (22:59)
[2016-05-31 23:23] VITALS: O2SAT 96
[2016-06-01 02:00] VITALS: BP 126/62
[2016-06-01 05:46] LABS: INR 3.9; MEAN CORPUSCULAR HEMOGLOBIN 28.6 pg (27.0-33.0); MEAN CORPUSCULAR HGB CONC 31.4 g/dl (32.0-36.5); MEAN CORPUSCULAR VOLUME 90.9 fl (80.0-96.0); RED CELL DISTRIBUTION WIDTH 15.4 % (11.5-14.5); WHITE BLOOD COUNT 15.8 K/mm3 (4.0-10.0)
[2016-06-01 06:00] VITALS: BP 108/57
[2016-06-01 06:01] LABS: ALBUMIN 2.1 GM/DL (3.2-5.2); ALBUMIN/GLOBULIN RATIO 0.54 (1.00-1.93); BILIRUBIN,TOTAL 0.6 MG/DL (0.2-1.0); CALCIUM LEVEL 7.8 MG/DL (8.8-10.2); CREATININE FOR GFR 0.95 MG/DL (0.55-1.02); GLOMERULAR FILTRATION RATE 59.1 (>32); POTASSIUM SERUM 3.5 MEQ/L (3.5-5.1)
[2016-06-01] MEDS: LEVOTHYROXINE 0.075 MG TAB (75 MCG) PO SCH (06:55)
[2016-06-01] MEDS: SLF 3 ML SYR IV SCH ×3 (06:55→21:58)
[2016-06-01] MEDS: MEROPENEM INJ 1 GM in D5W MINI-BAG PLUS 100 ML IV SCH ×2 (06:55→16:22)
[2016-06-01] MEDS: SUCRALFATE SUSP 1GM/10ML UD PO SCH ×3 (06:55→19:07)
[2016-06-01] MEDS: IPRATROPIUM 0.5MG/ALBUTEROL 2.5MG INH SOL UD 3ML (DUONEB)(J7620) NEB PRN (07:13)
[2016-06-01] MEDS ORDERED: METOCLOPRAMIDE INJ 10MG/2ML VIAL (J2765) IV PRN (07:45)
[2016-06-01] MEDS: ALPRAZolam 0.25 MG TAB PO SCH ×4 (09:00→19:00)
[2016-06-01] MEDS ORDERED: FUROSEMIDE 40 MG/4 ML VIAL (J1940) IV SCH (09:00)
[2016-06-01] MEDS: DOCUSATE SOD LIQ 100MG/10ML UDC PO SCH ×2 (09:23→21:00)
[2016-06-01] MEDS: MIRALAX *UNIT DOSE* 17GM PACKET PO SCH ×2 (09:23→21:00)
[2016-06-01] MEDS: FUROSEMIDE 40 MG/4 ML VIAL (J1940) IV SCH ×2 (09:24→19:07)
[2016-06-01] MEDS: LACOSAMIDE 50 MG TAB (VIMPAT) PO SCH ×2 (09:24→21:56)
[2016-06-01] MEDS: LANSOPRAZOLE SUSPENSION 30 MG/10 ML ORAL SYRINGE (FIRST-LANSOPRAZOLE) PO SCH ×2 (09:25→21:56)
[2016-06-01 10:00] VITALS: BP 115/60
[2016-06-01] MEDS ORDERED: FLEET ENEMA PR PRN (11:45)
[2016-06-01] MEDS ORDERED: FLEET ENEMA PR ONE (12:00)
[2016-06-01] MEDS: FLUCONAZOLE 200 MG in APPROPRIATE DILUENT 1 EA IV SCH (13:20)
[2016-06-01] MEDS: ACETAMINOPHEN 325 MG/10.15 ML UDC GT PRN ×2 (13:23→21:56)
[2016-06-01 14:00] VITALS: BP 118/52
[2016-06-01] MEDS: MIRTAZAPINE 15 MG TAB PO SCH (21:57)
[2016-06-01 22:00] VITALS: BP 116/61
[2016-06-02] MEDS: MEROPENEM INJ 1 GM in D5W MINI-BAG PLUS 100 ML IV SCH ×3 (00:01→16:45)
[2016-06-02] MEDS: IPRATROPIUM 0.5MG/ALBUTEROL 2.5MG INH SOL UD 3ML (DUONEB)(J7620) NEB PRN ×3 (00:06→20:22)
[2016-06-02] MEDS: FUROSEMIDE 40 MG/4 ML VIAL (J1940) IV SCH ×2 (01:53→08:33)
[2016-06-02 06:00] VITALS: BP 104/51
[2016-06-02] MEDS: LEVOTHYROXINE 0.075 MG TAB (75 MCG) PO SCH (06:00)
[2016-06-02] MEDS: SLF 3 ML SYR IV SCH ×3 (06:00→22:00)
[2016-06-02 07:47] LABS: CALCIUM LEVEL 8.2 MG/DL (8.8-10.2); CREATININE FOR GFR 1.1 MG/DL (0.55-1.02); GLOMERULAR FILTRATION RATE 49.9 (>32)
[2016-06-02 07:52] LABS: BASO % 0.2 % (0.0-1.0); EOS # 0.4 K/mm3 (0.0-0.50); EOS % 3.2 % (0.0-3.0); LARGE UNSTAINED CELL # 0.2 K/mm3 (0.0-0.4); LARGE UNSTAINED CELL % 1.2 % (0.0-4.0); LYMPH # 1.5 K/mm3 (1.5-4.5); LYMPH % 10.4 % (24.0-44.0); MEAN CORPUSCULAR HEMOGLOBIN 28.5 pg (27.0-33.0); MEAN CORPUSCULAR HGB CONC 32.2 g/dl (32.0-36.5); MEAN CORPUSCULAR VOLUME 88.5 fl (80.0-96.0); MONO # 0.7 K/mm3 (0.0-0.8); MONO % 5.6 % (0.0-5.0); NEUTROPHILS # 10.4 K/mm3 (1.8-7.7); NEUTROPHILS % 79.5 % (36.0-66.0); PLATELET COUNT, AUTOMATED 441 k/mm3 (150-450); RED CELL DISTRIBUTION WIDTH 15.2 % (11.5-14.5); WHITE BLOOD COUNT 13.1 K/mm3 (4.0-10.0)
[2016-06-02] MEDS: DOCUSATE SOD LIQ 100MG/10ML UDC PO SCH ×2 (08:32→21:00)
[2016-06-02] MEDS: MIRALAX *UNIT DOSE* 17GM PACKET PO SCH ×2 (08:32→21:00)
[2016-06-02] MEDS: SUCRALFATE SUSP 1GM/10ML UD PO SCH ×3 (08:33→18:38)
[2016-06-02] MEDS: LANSOPRAZOLE SUSPENSION 30 MG/10 ML ORAL SYRINGE (FIRST-LANSOPRAZOLE) PO SCH ×2 (08:33→22:21)
[2016-06-02] MEDS: ALPRAZolam 0.25 MG TAB PO SCH ×4 (08:34→18:38)
[2016-06-02] MEDS: LACOSAMIDE 50 MG TAB (VIMPAT) PO SCH ×2 (08:34→22:21)
[2016-06-02] MEDS ORDERED: ISOVUE-370 76% 100ML VIAL (Q9967) As Ordered ONE (08:52)
[2016-06-02] MEDS ORDERED: ACYCLOVIR 5% OINT 15GM TOP PRN (13:00)
[2016-06-02] MEDS: FLUCONAZOLE 200 MG in APPROPRIATE DILUENT 1 EA IV SCH (13:54)
[2016-06-02 14:00] VITALS: BP 91/51
--- NOTE | 2016-06-02 14:20 | IPNPDOC ---
Text Note Date of Service The patient was seen on 06/02/16. NOTE Subjective: Nonverbal. Mild drainage from the insertion site of the GJ tube. No acute changes overnight. Objective: PHYSICAL EXAMINATION: Vitals: (see below) General: No acute distress, laying comfortably in bed. HEENT: Moist mucous membranes. Neck: No JVD or lymphadenopathy Cardiac: RRR, No murmurs Pulm: Coarse crackles b/l bases. No wheezing. +rhonchi Abd: NT/ND + BS. G-J tube with erythema extending. Induration improving. Some purulent drainage at the insertion site, improved from yesterday. Ext: No edema or cyanosis LABORATORY DATA: See below. IMAGING: CT Chest 05/18/16 Impression: 1. Almost complete resolution of the left lower lobe consolidation. Small left lower lobe pleural effusion with left lower lobe atelectasis remains. 2. Stable cardiomegaly with tiny pericardial effusion. 3. Scoliosis with compression fractures of the lumbar spine are unchanged. MICROBIOLOGY: Please see below. ASSESSMENT/PLAN: 1. Acute hypoxic respiratory failure likely secondary to aspiration pneumonia, which is recurrent. Recently had GJ-tube placed on 05/[address] Vaca. Had a large emesis and aspirated again shortly after and was on a nonrebreather, which has been titrated down to 8 L nasal cannula. Patient was made DNR/DNI on . Continue current meropenem. Discontinue vancomycin.On fluconazole. Some purulent drainage from the GJ site which was sent for culture, yeast noted. 2. Persistent leukocytosis-improving. On broad-spectrum antibiotics and antifungal. Patient did have a CT abdomen and pelvis (see above). Repeat CT abd /pelvis today. Appreciate Dr. Xiong's input. 3. 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 Advanced Alzheimer's, bedridden, minimally verbal 5. Hypothyroidism- continue Synthroid 6. Seizure disorder- continue home meds 7. History of CVA 8. Severe protein calorie malnutrition status post GJ tube 9. Constipation- suppository, Colace, MiraLAX. 10. Small pericardial effusion- echocardiogram pending 11. Subcapsular hematoma- discussed with Dr. Xiong, likely resolve on its own. DVT prophylaxis enoxaparin DNR/DNI VS,Fishbone, I+O VS, Fishbone, I+O Laboratory Tests 06/02/16 06:23 Red Blood Count 3.48 L, Mean Corpuscular Volume 88.5, Mean Corpuscular Hemoglobin 28.5, Mean Corpuscular Hemoglobin Concent 32.2, Red Cell Distribution Width 15.2 H, Neutrophils (%) (Auto) 79.5 H, Lymphocytes (%) (Auto ) 10.4 L, Monocytes (%) (Auto) 5.6 H, Eosinophils (%) (Auto) 3.2 H, Basophils (% ) (Auto) 0.2, Neutrophils # (Auto) 10.4 H, Lymphocytes # (Auto) 1.5, Monocytes # (Auto) 0.7, Eosinophils # (Auto) 0.4, Basophils # (Auto) 0.0 06/02/16 06:30 Calcium Level 8.2 L Vital Signs Date Time Temp Pulse Resp B/P Pulse Ox O2 Delivery O2 Flow Rate FiO2 06/02/16 06:00 98.8 92 18 104/51 96 Aerosol Mask 8.0 06/01/16 20:00 28 I&O- Last 24 Hours up to 6 AM 06/02/16 06:00 Intake Total 120 ml Output Total 1600 ml Balance -1480 ml GIANFRANCO ATWOOD MD Jun 02, 2016 14:20
--- NOTE | 2016-06-02 15:25 | REP ---
CT ABDOMEN AND PELVIS WITH CONTRAST: 06/02/2016. Comparison: 05/30/2009. Clinical history: Reassess subcapsular hematoma and subcutaneous emphysema. Technique: Oral Gastrografin mixture 10 ml in 290 ml of flavored water given per our bowel contrast protocol for two doses and then bolus of 100 ml Isovue 370 and scanning through the abdomen pelvis with coronal and sagittal reconstructions. Findings: CT abdomen: There is curvilinear atelectatic change in both lower lung zones. Improvement in the patchy basilar atelectasis or infiltrates bilaterally over the past 3 days. 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 Heart has enlargement and a pericardial effusion is again seen, unchanged. There is a hiatal hernia also unchanged. In the upper abdomen, the subcapsular hematoma now has a thickness of about 10 mm, previously 18. There is subcutaneous emphysema anterior abdominal wall outside of the superficial fascial layer of the muscles of the rectus and oblique group is slightly decreased. There is a transabdominal wall passage of a gastrostomy jejunostomy feeding tube with its tip well into the jejunum in the left upper quadrant. Stomach is collapsed. Spleen is not enlarged. Liver shows a small cyst inferiorly right hepatic lobe near its lateral margin. Visualized pancreas intact. Prior cholecystectomy noted. The common duct in the daniela hepatis is mildly dilated typical for postcholecystectomy patients. No ascites in the upper abdomen. Adrenal glands are unremarkable. The kidneys unchanged with a small cyst lower pole on the left. Extrarenal pelvis on the right, but no hydroureter, renal or ureteral stone. Small bowel loops are fluid filled but not dilated. Visualized colon shows no sign of obstruction or colitis, diverticulitis or mass. Bones unchanged. CT pelvis: The bladder shows Yee catheter within and a small amount of urine. No distal ureteral dilatation or stone, nor bladder calculus. Wall thickness of bladder mildly prominent but unchanged. Distal left colon, sigmoid and rectum without acute finding. Small bowel loops intact. No sign of obstruction or ileus and no interval change. Impression: 1. Status post PEG tube insertion with gastrojejunostomy tube, its tip well into the jejunum in the right upper quadrant. There is slight lessening of the subcutaneous emphysema in the anterior abdominal wall adjacent to the superficial rectus and oblique fascia. 2. Interval decrease in size of the subcapsular hematoma in the left lobe of the liver now 10 mm thickness, was 18 mm. 3. Postoperative changes from cholecystectomy with common duct and proximal intrahepatic ducts typical for that state. No interval change. No ascites, free air or abscess. Signed by Jan Juárez MD 06/02/2016 05:23 P
[2016-06-02] MEDS ORDERED: POTASSIUM CHLORIDE 10 MEQ SR TABLET PO ONE (16:00)
[2016-06-02] MEDS ORDERED: POTASSIUM CHLORIDE 10% LIQ 20 MEQ/15 ML UDC PO ONE (17:00)
[2016-06-02 18:01] LABS: INR 5.56
[2016-06-02] MEDS: MIRTAZAPINE 15 MG TAB PO SCH (21:00)
[2016-06-02 22:00] VITALS: BP 80/54
[2016-06-02] MEDS: ACETAMINOPHEN 325 MG/10.15 ML UDC GT PRN (22:20)
[2016-06-03] MEDS: IPRATROPIUM 0.5MG/ALBUTEROL 2.5MG INH SOL UD 3ML (DUONEB)(J7620) NEB PRN ×5 (00:15→19:50)
[2016-06-03] MEDS: MEROPENEM INJ 1 GM in D5W MINI-BAG PLUS 100 ML IV SCH ×4 (00:36→23:53)
[2016-06-03 06:00] VITALS: BP 112/59
[2016-06-03] MEDS: LEVOTHYROXINE 0.075 MG TAB (75 MCG) PO SCH (06:38)
[2016-06-03] MEDS: SLF 3 ML SYR IV SCH ×3 (06:38→21:51)
[2016-06-03 06:41] LABS: DIFF SLIDE NUMBER 60; MEAN CORPUSCULAR HEMOGLOBIN 29.2 pg (27.0-33.0); MEAN CORPUSCULAR HGB CONC 33.3 g/dl (32.0-36.5); MEAN CORPUSCULAR VOLUME 87.5 fl (80.0-96.0); PLATELET COUNT, AUTOMATED 402 k/mm3 (150-450); RED CELL DISTRIBUTION WIDTH 15.2 % (11.5-14.5); WHITE BLOOD COUNT 14.8 K/mm3 (4.0-10.0)
[2016-06-03 07:08] LABS: CALCIUM LEVEL 8.4 MG/DL (8.8-10.2); CREATININE FOR GFR 1.17 MG/DL (0.55-1.02); GLOMERULAR FILTRATION RATE 46.5 (>32); POTASSIUM SERUM 3.9 MEQ/L (3.5-5.1)
[2016-06-03 07:11] LABS: ANISOCYTOSIS 1+; BASOPHILS 1 % (0-4); EOSINOPHILS 3 % (0-5)
[2016-06-03 07:14] LABS: INR 5.48
[2016-06-03] MEDS: MIRALAX *UNIT DOSE* 17GM PACKET PO SCH (09:00)
[2016-06-03] MEDS: ALPRAZolam 0.25 MG TAB PO SCH ×4 (09:00→17:59)
[2016-06-03 10:00] VITALS: BP 118/59
[2016-06-03] MEDS: SUCRALFATE SUSP 1GM/10ML UD PO SCH ×3 (10:03→17:58)
[2016-06-03] MEDS: LACOSAMIDE 50 MG TAB (VIMPAT) PO SCH ×2 (10:03→21:50)
[2016-06-03] MEDS: NYSTATIN 500,000 U/5 ML SUSP UDC SSP SCH ×3 (10:03→21:50)
[2016-06-03] MEDS: LANSOPRAZOLE SUSPENSION 30 MG/10 ML ORAL SYRINGE (FIRST-LANSOPRAZOLE) PO SCH ×2 (10:04→21:50)
[2016-06-03] MEDS: FLUCONAZOLE 200 MG in APPROPRIATE DILUENT 1 EA IV SCH (13:21)
[2016-06-03 14:00] VITALS: BP 118/56
--- NOTE | 2016-06-03 16:38 | IPN ---
DATE: 06/03/2016 SUBJECTIVE: Patient seen and examined in the room with patient's daughter. Patient is still not awake nor alert. Not able to answer questions of follow commands. Patient's daughter questions answered. OBJECTIVE: VITAL SIGNS Temperature 98.7, pulse 92, respirations 14, blood pressure 112/59, pulse is 98% on aerosol mask, FiO2 is 28%. PHYSICAL EXAMINATION: General: No sign of acute distress. Patient is not awake, alert, not able to answer questions, not able to follow commands. HEENT: Normocephalic, atraumatic. CARDIOVASCULAR: Positive S1, S2, regular rate. LUNGS: Coarse crackles bilaterally. Positive rhonchi. No wheezes. ABDOMEN: Soft, non-tender, JG tube in place. Induration is improving. EXTREMITIES: No edema. No sign of cyanosis. LABORATORY DATA: WBC 14.8, hemoglobin 10.3, hematocrit 30.8, platelet counts 402. Sodium 138, potassium 3.9, chloride 99, carbon dioxide 32, BUN 23, creatinine 1.17, glomerular filtration rate (GFR) is 46.5, fasting glucose 114, calcium 8.4. ASSESSMENT AND PLAN: 1. Acute hypoxic respiratory failure secondary to aspiration pneumonia. Patient has been on meropenem and patient continues to require high flow oxygen support. Patient is on Diflucan for her yeast infection at the tube feeding insertion site. General surgeon Dr. Xiong is being consulted on patient's care. Appreciate any input. 2. History of deep vein thrombosis/pulmonary embolism (PE). Patient is on Warfarin. Currently patient has supra therapeutic INR. Warfarin is on hold. Supra therapeutic INR most likely secondary to the Diflucan use. 3. Supra therapeutic INR secondary to Diflucan use. Warfarin has been discontinued. Today patient's INR started to decrease with Warfarin on hold we are hoping the INR will start to decrease. Currently patient does not have any bleeding. 4. Alzheimer's disease. Bed written. Unable to determine the baseline. 5. Hypothyroidism. On Synthroid. 6. History of seizure disorder. Continue home medications. 7. History of cerebrovascular accident (CVA). 8. Patient has severe protein malnutrition. Patient has tube feedings from JG tube. 9. Acute on chronic renal failure since 06/01/2016. Patient started having decreased decline of renal function. After following patient input and output, patient may be dehydrated. We will consult washery boss for tube feeding adjustment. We will try to match the patient's input with output. I will follow renal function tomorrow. 10. Subcapsular hematoma. Per general surgeon recommendation will continue conservative management. 11. Diarrhea. Patient had constipation before. Patient has multiple bowel movement measurement, now patient has diarrhea due to history of prolonged antibiotic use. We will follow with C. difficile PCR. 12. Small pericardial effusion. Follow with echo. 13. Deep vein thrombosis prophylaxis. Currently patient has supra therapeutic INR. Continue to monitor.
[2016-06-03] MEDS: MIRTAZAPINE 15 MG TAB PO SCH (21:00)
[2016-06-03] MEDS: ACETAMINOPHEN 325 MG/10.15 ML UDC GT PRN (21:50)
[2016-06-03 22:00] VITALS: BP 110/58
[2016-06-04 06:00] VITALS: BP 105/50
[2016-06-04] MEDS: SLF 3 ML SYR IV SCH ×3 (06:00→22:33)
[2016-06-04] MEDS: LEVOTHYROXINE 0.075 MG TAB (75 MCG) PO SCH (06:00)
[2016-06-04] MEDS: MEROPENEM INJ 1 GM in D5W MINI-BAG PLUS 100 ML IV SCH ×3 (06:32→22:33)
[2016-06-04 06:48] LABS: BASO % 0.2 % (0.0-1.0); EOS # 0.9 K/mm3 (0.0-0.50); EOS % 6.6 % (0.0-3.0); LARGE UNSTAINED CELL # 0.2 K/mm3 (0.0-0.4); LARGE UNSTAINED CELL % 1.4 % (0.0-4.0); LYMPH # 1.4 K/mm3 (1.5-4.5); LYMPH % 8.2 % (24.0-44.0); MEAN CORPUSCULAR HEMOGLOBIN 28.7 pg (27.0-33.0); MEAN CORPUSCULAR HGB CONC 32.1 g/dl (32.0-36.5); MEAN CORPUSCULAR VOLUME 89.3 fl (80.0-96.0); MONO # 0.6 K/mm3 (0.0-0.8); NEUTROPHILS # 11.2 K/mm3 (1.8-7.7); NEUTROPHILS % 79.6 % (36.0-66.0); PLATELET COUNT, AUTOMATED 438 k/mm3 (150-450); RED CELL DISTRIBUTION WIDTH 15.3 % (11.5-14.5); WHITE BLOOD COUNT 14.1 K/mm3 (4.0-10.0)
[2016-06-04 07:05] LABS: CALCIUM LEVEL 8.5 MG/DL (8.8-10.2); CREATININE FOR GFR 1.02 MG/DL (0.55-1.02); GLOMERULAR FILTRATION RATE 54.4 (>32); POTASSIUM SERUM 4.3 MEQ/L (3.5-5.1)
[2016-06-04 07:07] LABS: INR 4.31
[2016-06-04] MEDS: ALPRAZolam 0.25 MG TAB PO SCH ×5 (08:31→20:44)
[2016-06-04] MEDS: LACOSAMIDE 50 MG TAB (VIMPAT) PO SCH ×2 (08:32→19:51)
[2016-06-04] MEDS: NYSTATIN 500,000 U/5 ML SUSP UDC SSP SCH ×3 (08:32→19:49)
[2016-06-04] MEDS: LANSOPRAZOLE SUSPENSION 30 MG/10 ML ORAL SYRINGE (FIRST-LANSOPRAZOLE) PO SCH ×2 (08:32→19:49)
[2016-06-04] MEDS: SUCRALFATE SUSP 1GM/10ML UD PO SCH ×3 (08:32→18:37)
[2016-06-04] MEDS: IPRATROPIUM 0.5MG/ALBUTEROL 2.5MG INH SOL UD 3ML (DUONEB)(J7620) NEB PRN ×2 (08:47→20:29)
[2016-06-04 10:00] VITALS: BP 108/56
[2016-06-04] MEDS: FLUCONAZOLE 200 MG in APPROPRIATE DILUENT 1 EA IV SCH (12:18)
[2016-06-04 14:00] VITALS: BP 114/96
[2016-06-04] MEDS ORDERED: LOPERAMIDE ORAL SOLN 1MG/5ML UD GT ONE (15:30)
--- NOTE | 2016-06-04 17:54 | IPN ---
DATE: 06/04/2016 SUBJECTIVE: The patient is seen and examined in the room with the patient's daughter, healthcare proxy. The patient is still not responsive. The patient is not awake, not able to answer questions or follow commands. All of the patient's daughter's questions were answered. OBJECTIVE: VITAL SIGNS Temperature 98.3, pulse 89, respirations 14, blood pressure 105/50, pulse oximetry is 96% on aerosol mask, FiO2 is 28%. PHYSICAL EXAMINATION: GENERAL: The patient is not alert. The patient is not awake. The patient is not oriented. Does not follow commands. HEENT: Normocephalic, atraumatic. CARDIOVASCULAR: Positive S1, S2, regular rate. LUNGS: Coarse sounds. Positive crackles. Positive rhonchi. No wheezes. ABDOMEN: Soft, nontender, JG tube in place. Induration is improving. EXTREMITIES: No edema. No sign of cyanosis. LABORATORY DATA: WBC 14.1, hemoglobin 9.5, hematocrit 29.6, platelet count is 438. Sodium 135, potassium 4.3, chloride 97, carbon dioxide 31, BUN 24, creatinine 1.02, glomerular filtration rate (GFR) is 54.4, fasting glucose 123, calcium 8.5. ASSESSMENT AND PLAN: 1. Acute hypoxic respiratory failure secondary to recurrent aspiration pneumonia. Patient has been on meropenem. The patient still continues to need high flow oxygen support. Patient is on Diflucan for yeast infection. 2. History of deep vein thrombosis/pulmonary embolism (PE). Patient is on Warfarin. The patient has a history of supratherapeutic INR, most likely due to the interaction with Diflucan. Warfarin has been discontinued. The patient has to be continued on the Diflucan due to current yeast infection. INR is improving. 3. Supra therapeutic INR secondary to Diflucan use, improving. 4. Alzheimer's disease. Bedridden. Unable to determine the baseline. 5. Hypothyroidism. On Synthroid. 6. History of seizure disorder. Continue home medications. 7. History of cerebrovascular accident (CVA). 8. Patient has severe protein malnutrition. Patient has tube feedings from JG tube. 9. Acute on chronic renal failure secondary to dehydration. Promotions Executive has been consulted. The patient has tube feedings and water intake has been adjusted. Renal function is improving. 10. Subcapsular hematoma. General surgeon has been consulted and recommended conservative management. 11. Diarrhea. Clostridium (C) difficile is negative. We will start a trial of Imodium. Bowel movement medication has been removed since a few days ago. 12. Small pericardial effusion. Echocardiogram was performed on 05/31/2016. The study is dictated as markedly limited technical quality. 13. Deep vein thrombosis prophylaxis. Currently patient has supra therapeutic INR.
[2016-06-04] MEDS: MIRTAZAPINE 15 MG TAB PO SCH (19:50)
[2016-06-04 22:00] VITALS: BP 115/60
[2016-06-05] MEDS: MEROPENEM INJ 1 GM in D5W MINI-BAG PLUS 100 ML IV SCH ×3 (05:57→22:57)
[2016-06-05] MEDS: LEVOTHYROXINE 0.075 MG TAB (75 MCG) PO SCH (05:57)
[2016-06-05] MEDS: SLF 3 ML SYR IV SCH ×3 (05:57→21:30)
[2016-06-05 06:00] VITALS: BP 100/50
[2016-06-05 07:17] LABS: BASO % 0.2 % (0.0-1.0); EOS # 0.8 K/mm3 (0.0-0.50); EOS % 5.8 % (0.0-3.0); LARGE UNSTAINED CELL # 0.2 K/mm3 (0.0-0.4); LARGE UNSTAINED CELL % 1.2 % (0.0-4.0); LYMPH # 1.1 K/mm3 (1.5-4.5); LYMPH % 6.7 % (24.0-44.0); MEAN CORPUSCULAR HEMOGLOBIN 28.6 pg (27.0-33.0); MEAN CORPUSCULAR HGB CONC 32.1 g/dl (32.0-36.5); MEAN CORPUSCULAR VOLUME 89.2 fl (80.0-96.0); MONO # 0.7 K/mm3 (0.0-0.8); MONO % 5.6 % (0.0-5.0); NEUTROPHILS # 10.7 K/mm3 (1.8-7.7); NEUTROPHILS % 80.5 % (36.0-66.0); PLATELET COUNT, AUTOMATED 419 k/mm3 (150-450); RED CELL DISTRIBUTION WIDTH 15.1 % (11.5-14.5); WHITE BLOOD COUNT 13.3 K/mm3 (4.0-10.0)
[2016-06-05 07:23] LABS: INR 3.09
[2016-06-05 07:29] LABS: ANION GAP 8 MEQ/L (8-16); BLOOD UREA NITROGEN 23 MG/DL (7-18); CALCIUM LEVEL 8.3 MG/DL (8.8-10.2); CARBON DIOXIDE LEVEL 28 MEQ/L (21-32); CHLORIDE LEVEL 100 MEQ/L (98-107); CREATININE FOR GFR 0.93 MG/DL (0.55-1.02); GLOMERULAR FILTRATION RATE > 60.0 (>32); GLUCOSE, FASTING 155 MG/DL (83-110); POTASSIUM SERUM 4.3 MEQ/L (3.5-5.1); SODIUM LEVEL 136 MEQ/L (136-145)
[2016-06-05] MEDS: ALPRAZolam 0.25 MG TAB PO SCH ×4 (08:35→18:20)
[2016-06-05] MEDS: LANSOPRAZOLE SUSPENSION 30 MG/10 ML ORAL SYRINGE (FIRST-LANSOPRAZOLE) PO SCH ×2 (08:36→21:29)
[2016-06-05] MEDS: SUCRALFATE SUSP 1GM/10ML UD PO SCH ×3 (08:36→16:37)
[2016-06-05] MEDS: LACOSAMIDE 50 MG TAB (VIMPAT) PO SCH ×2 (08:36→21:29)
[2016-06-05] MEDS: NYSTATIN 500,000 U/5 ML SUSP UDC SSP SCH ×3 (08:36→21:29)
[2016-06-05] MEDS: FLUCONAZOLE 200 MG in APPROPRIATE DILUENT 1 EA IV SCH (13:10)
[2016-06-05] MEDS: ACETAMINOPHEN 325 MG/10.15 ML UDC GT PRN (13:10)
[2016-06-05] MEDS: LOPERAMIDE ORAL SOLN 1MG/5ML UD GT PRN ×2 (14:27→15:31)
[2016-06-05] MEDS: ACYCLOVIR 200 MG CAPSULE PO SCH ×2 (16:36→21:29)
--- NOTE | 2016-06-05 16:40 | IPN ---
DATE: 06/05/2016 SUBJECTIVE: Patient is seen and examined in the room with her daughters. Patient is nonverbal, able to stay awake intermittently. No overnight events are reported. OBJECTIVE: VITAL SIGNS: Temperature 98.9, pulse 104, respirations 16, blood pressure 100/50, pulse oximetry 98% with aerosol mask FiO2 of 28%. GENERAL: Patient is nonverbal, has difficulty staying awake and alert. Not able to follow commands. HEENT: Started to have ecchymosis and mild blister near the rim of the lips. CARDIOVASCULAR: Positive S1, S2, regular rate. LUNGS: Coarse lung sounds, crackles bilaterally, no wheezes. ABDOMEN: Gastrostomy-jejunostomy (G-J) tube insertion site examined and there is no active drainage, no ecchymosis, no purulent discharge. EXTREMITIES: No edema. No sign of cyanosis. LABORATORY DATA: WBC 13.3, hemoglobin 9.3, hematocrit 28.7, platelet count 419. Sodium 136, potassium 4.3, chloride 100, carbon dioxide 28, BUN 23, creatinine 0.93, GFR greater than 60, fasting glucose 155, calcium 8.3, C-reactive protein 3.65. ASSESSMENT AND PLAN: 1. Acute hypoxic respiratory failure secondary to recurrent aspiration pneumonia. Currently patient is on meropenem. Patient still requires high flow oxygen support. C-reactive protein continues to improve. Will start attempt to wean patient off oxygen to see if patient can tolerate it. 2. History of deep venous thrombosis (DVT) and pulmonary embolus (PE) and patient is on warfarin. Previously patient had a supratherapeutic INR due to warfarin interacting with Diflucan. Patient's warfarin has been discontinued. INR started to drop from 5.56, now is 3.09. However, by the rate of decrease we do not want patient's INR to drop below 2. We will start on the warfarin today and will continue to monitor PT/INR on a daily basis and will adjust the warfarin dose accordingly. 3. Supratherapeutic INR due to Diflucan. Since the discontinuation of the warfarin previously, INR has been improving. Today the INR is around 3. However, we are afraid patient's INR may drop below therapeutic range. Will restart warfarin today and will continue to monitor. 4. Yeast infection at the wound site, in the urine, and in sputum. Patient has been on Diflucan since 05/28/2016. Will followup with repeated urine cultures. 5. History of Alzheimer's disease, advanced stage. Patient has been bedridden, unable to determine baseline. 6. Hypothyroidism, on Synthroid. 7. History of seizure disorder, on home medication. 8. History of CVA. 9. Severe protein malnutrition. Patient is receiving tube feedings through a gastrostomy-jejunostomy (G-J) tube. Will followup with prealbumin level and albumin and total protein to give us an estimate of patient's nutrition status and we will adjust the tube feeding accordingly. Flight Communications Officer has been consulted. 10. Acute on chronic renal failure secondary to dehydration. Tube feeding regimen and water intake has been adjusted due to tube feeding. Renal function is improving. 11. Subcapsular hematoma. General surgery has been consulted and recommended conservative medical management. 12. Diarrhea. Clostridium (C) difficile is negative. Patient started a trial of Imodium yesterday. Bowel movement frequency already has been improving. 13. Small pericardial effusion. 14. Deep venous thrombosis (DVT) prophylaxis. Currently patient has an INR of 3.
[2016-06-05] MEDS ORDERED: WARFARIN SOD 2.5 MG TAB PO SCH (17:00)
[2016-06-05] MEDS: IPRATROPIUM 0.5MG/ALBUTEROL 2.5MG INH SOL UD 3ML (DUONEB)(J7620) NEB PRN (19:56)
[2016-06-05] MEDS: MIRTAZAPINE 15 MG TAB PO SCH (21:30)
[2016-06-05 22:00] VITALS: BP 123/58
[2016-06-06] MEDS: IPRATROPIUM 0.5MG/ALBUTEROL 2.5MG INH SOL UD 3ML (DUONEB)(J7620) NEB PRN ×4 (02:35→20:19)
[2016-06-06 06:00] VITALS: BP 115/62
[2016-06-06] MEDS: LEVOTHYROXINE 0.075 MG TAB (75 MCG) PO SCH (06:08)
[2016-06-06] MEDS: ACYCLOVIR 200 MG CAPSULE PO SCH ×3 (06:08→21:09)
[2016-06-06] MEDS: MEROPENEM INJ 1 GM in D5W MINI-BAG PLUS 100 ML IV SCH ×2 (06:08→14:55)
[2016-06-06] MEDS: SLF 3 ML SYR IV SCH ×3 (06:09→21:14)
[2016-06-06 06:53] LABS: BASO % 0.2 % (0.0-1.0); EOS # 0.6 K/mm3 (0.0-0.50); EOS % 4.2 % (0.0-3.0); LARGE UNSTAINED CELL # 0.3 K/mm3 (0.0-0.4); LARGE UNSTAINED CELL % 1.9 % (0.0-4.0); LYMPH # 1.5 K/mm3 (1.5-4.5); MEAN CORPUSCULAR HEMOGLOBIN 28.8 pg (27.0-33.0); MEAN CORPUSCULAR HGB CONC 32.5 g/dl (32.0-36.5); MEAN CORPUSCULAR VOLUME 88.5 fl (80.0-96.0); MONO # 0.9 K/mm3 (0.0-0.8); MONO % 5.6 % (0.0-5.0); NEUTROPHILS # 12.2 K/mm3 (1.8-7.7); PLATELET COUNT, AUTOMATED 431 k/mm3 (150-450); RED CELL DISTRIBUTION WIDTH 15.3 % (11.5-14.5); WHITE BLOOD COUNT 15.3 K/mm3 (4.0-10.0)
[2016-06-06 07:19] LABS: INR 3.15
[2016-06-06 07:25] LABS: ALBUMIN/GLOBULIN RATIO 0.56 (1.00-1.93); BILIRUBIN,DIRECT 0.1 MG/DL (0.0-0.2); BILIRUBIN,TOTAL 0.3 MG/DL (0.2-1.0); CALCIUM LEVEL 8.3 MG/DL (8.8-10.2); CREATININE FOR GFR 0.96 MG/DL (0.55-1.02); GLOMERULAR FILTRATION RATE 58.4 (>32); POTASSIUM SERUM 4.8 MEQ/L (3.5-5.1); TOTAL PROTEIN 5.6 GM/DL (6.4-8.2)
[2016-06-06 09:00] VITALS: BP 96/53
[2016-06-06] MEDS: ALPRAZolam 0.25 MG TAB PO SCH ×4 (09:00→18:43)
[2016-06-06 10:00] VITALS: BP 101/55
[2016-06-06] MEDS: LANSOPRAZOLE SUSPENSION 30 MG/10 ML ORAL SYRINGE (FIRST-LANSOPRAZOLE) PO SCH ×2 (10:46→21:10)
[2016-06-06] MEDS: LACOSAMIDE 50 MG TAB (VIMPAT) PO SCH ×2 (10:47→21:13)
[2016-06-06] MEDS: NYSTATIN 100,000 UNITS/GM TOPICAL PWD 15 GM TOP PRN (11:11)
[2016-06-06] MEDS: NYSTATIN 500,000 U/5 ML SUSP UDC SSP SCH ×3 (11:19→21:13)
[2016-06-06] MEDS: SUCRALFATE SUSP 1GM/10ML UD PO SCH ×3 (12:00→18:42)
[2016-06-06] MEDS: FLUCONAZOLE 200 MG in APPROPRIATE DILUENT 1 EA IV SCH (13:05)
[2016-06-06 14:00] VITALS: BP 99/55
[2016-06-06] MEDS: WARFARIN SOD 1 MG TAB PO SCH (18:42)
[2016-06-06] MEDS: MIRTAZAPINE 15 MG TAB PO SCH (21:12)
[2016-06-06 22:00] VITALS: BP 127/60
--- NOTE | 2016-06-06 22:51 | IPN ---
DATE: 06/06/2016 SUBJECTIVE: Patient seen and examined in the room today. Patient is still sleeping with aerosol mask. Patient is not awake. Patient is not able to answer questions or follow commands. Patient did have a family friend near the bedside, who has been in patient's room daily since admission. More information obtained from the family friend. She stated patient has started having worsening dementia issues in the past year. A year ago, patient had the capacity to interact an answer some of the question; however, since half a year ago, patient has been sleeping most all the time, not able to communicate. Sounds like she can only answer questions with a single word. She has noted her dementia has been getting worse. Currently, patient's breathing is stable. No overnight events are reported. OBJECTIVE: VITAL SIGNS: Temperature is 96.7, pulse is 97, blood pressure is 86/53, pulse oximetry 97% with aerosol mask with 28% FiO2. GENERAL: Patient is not awake or alert. Not able to follow commands. Not able to answer questions. HEENT: Normocephalic, atraumatic. There is still some ecchymosis and mild blister near the rim of the lips. CARDIOVASCULAR: Positive S1, S2, regular rate. LUNGS: Coarse lung sounds, crackles bilaterally. No wheezes. ABDOMEN: JJ tube in place. No ecchymosis or drainage and no purulent discharge around the insertion site. EXTREMITIES: No edema, no sign of cyanosis. LABORATORY DATA: WBC is 15.3, hemoglobin 9.3, hematocrit 28.6, platelet count is 431. Sodium is 140, potassium 4.8, chloride 100, carbon dioxide 32, BUN 24, creatinine is 0.96, GFR is 58.4, fasting glucose 97, calcium is 8.3. Total bilirubin is 0.3 , direct bilirubin is 0.1, AST 21, ALT 14, alkaline phosphatase 119, C-reactive protein is 3.1, total protein 5.6, albumin 2, prealbumin 16.4. ASSESSMENT AND PLAN: 1. Acute hypoxic respiratory failure secondary to recurrent aspiration pneumonia. Patient is on meropenem. C-reactive protein continues to decrease. Currently patient still on aerosol mask for oxygen support and for lung expansion. We appreciate respiratory therapy's assistance. Will continue to wean patient off the oxygen if patient can tolerate it. 2. History of deep vein thrombosis (DVT)/pulmonary embolism (PE). Patient is on warfarin; however, patient also is taking Diflucan, which will interact with warfarin. Patient's INR has been supratherapeutic. It was 5.6 on 06/02/2016. Warfarin has been discontinued and will continue to adjust warfarin dose, try to reach the INR to fall into the therapeutic range. Today INR is 3.15. 3. Supratherapeutic INR due to Diflucan. 4. Yeast infection at the wound site, in the urine and the sputum. Patient has been on Diflucan since 05/28/2016. New set of urine cultures has been obtained. 5. History of Alzheimer disease, advanced stage. Patient has been bed ridden. I obtained information from family friend. It seems that the patient's dementia has been progressively getting worse in the past year to the point that she is barely verbal. Patient is unable to communicate with surroundings, and patient has been sleeping most of the time. 6. Hypothyroidism, on Synthroid. 7. History of seizure disorder, on home medication. 8. History of cerebrovascular accident (CVA). 9. Severe protein malnutrition. Patient has a very low albumin, prealbumin, and total protein. Front Attendant was consulted previously, and patient's tube feeding will be adjusted accordingly. 10. Acute on chronic renal failure secondary to dehydration. The water intake through the tube feeding has been increased to compensate the dehydration. Patient's renal function has been improving. 11. Subcapsular hematoma. General surgery recommended conservative management. 12. Small pericardial effusion. 13. Deep vein thrombosis (DVT) prophylaxis. Currently patient on warfarin. Patient's INR is greater than 3. MTDD
[2016-06-07 02:00] VITALS: BP 122/65
[2016-06-07 06:00] VITALS: BP 115/61
[2016-06-07] MEDS: SLF 3 ML SYR IV SCH ×3 (06:43→21:42)
[2016-06-07] MEDS: ACYCLOVIR 200 MG CAPSULE PO SCH ×3 (06:43→21:41)
[2016-06-07] MEDS: LEVOTHYROXINE 0.075 MG TAB (75 MCG) PO SCH (06:43)
[2016-06-07 07:20] LABS: BASO % 0.4 % (0.0-1.0); EOS # 0.8 K/mm3 (0.0-0.50); EOS % 6.3 % (0.0-3.0); LARGE UNSTAINED CELL # 0.2 K/mm3 (0.0-0.4); LARGE UNSTAINED CELL % 1.8 % (0.0-4.0); LYMPH # 1.4 K/mm3 (1.5-4.5); LYMPH % 8.5 % (24.0-44.0); MEAN CORPUSCULAR HEMOGLOBIN 28.6 pg (27.0-33.0); MEAN CORPUSCULAR HGB CONC 31.9 g/dl (32.0-36.5); MEAN CORPUSCULAR VOLUME 89.7 fl (80.0-96.0); MONO # 0.7 K/mm3 (0.0-0.8); MONO % 5.5 % (0.0-5.0); NEUTROPHILS # 10.2 K/mm3 (1.8-7.7); NEUTROPHILS % 77.5 % (36.0-66.0); PLATELET COUNT, AUTOMATED 441 k/mm3 (150-450); WHITE BLOOD COUNT 13.2 K/mm3 (4.0-10.0)
[2016-06-07] MEDS: IPRATROPIUM 0.5MG/ALBUTEROL 2.5MG INH SOL UD 3ML (DUONEB)(J7620) NEB PRN ×2 (07:23→20:50)
[2016-06-07 07:32] LABS: ANION GAP 5 MEQ/L (8-16); BLOOD UREA NITROGEN 25 MG/DL (7-18); CALCIUM LEVEL 8.1 MG/DL (8.8-10.2); CARBON DIOXIDE LEVEL 30 MEQ/L (21-32); CHLORIDE LEVEL 101 MEQ/L (98-107); CREATININE FOR GFR 0.93 MG/DL (0.55-1.02); GLOMERULAR FILTRATION RATE > 60.0 (>32); GLUCOSE, FASTING 101 MG/DL (83-110); SODIUM LEVEL 136 MEQ/L (136-145)
[2016-06-07 07:39] LABS: INR 2.94
[2016-06-07 10:00] VITALS: BP 92/55
[2016-06-07] MEDS: SUCRALFATE SUSP 1GM/10ML UD PO SCH ×3 (10:03→17:18)
[2016-06-07] MEDS: LACOSAMIDE 50 MG TAB (VIMPAT) PO SCH ×2 (10:04→21:42)
[2016-06-07] MEDS: ALPRAZolam 0.25 MG TAB PO SCH ×3 (10:04→16:59)
[2016-06-07] MEDS: NYSTATIN 500,000 U/5 ML SUSP UDC SSP SCH ×3 (10:04→21:41)
[2016-06-07] MEDS: LANSOPRAZOLE SUSPENSION 30 MG/10 ML ORAL SYRINGE (FIRST-LANSOPRAZOLE) PO SCH ×2 (10:05→21:41)
[2016-06-07] MEDS: ACETAMINOPHEN 325 MG/10.15 ML UDC GT PRN ×3 (10:12→23:06)
[2016-06-07] MEDS: FLUCONAZOLE 200 MG in APPROPRIATE DILUENT 1 EA IV SCH (11:17)
[2016-06-07 14:00] VITALS: BP 116/58
--- NOTE | 2016-06-07 15:46 | IPN ---
DATE: 06/07/2016 SUBJECTIVE: Patient is seen and examined in the room today. Patient is still not awake, not able to answer questions or follow commands. Patient is still on aerosol mask. No visible signs of respiratory distress. No overnight events are reported. OBJECTIVE: VITAL SIGNS: Temperature 98.9, pulse 93, respirations 20, blood pressure 115/61, pulse oximetry 95% with aerosol mask, FiO2 of 28%. GENERAL: Patient is not alert or awake and patient is not able to answer questions or follow commands. HEENT: Normocephalic, atraumatic. Extraocular motors grossly intact. Still some ecchymosis, blister near the rim of the lips. CARDIOVASCULAR: Positive S1, S2, regular rate. LUNGS: Coarse lung sounds, crackles bilaterally, no wheezes. ABDOMEN: Gastrostomy-Jejunostomy (G-J) tube in place. Abdomen is soft, nontender. EXTREMITIES: No edema. No sign of cyanosis. LABORATORY DATA: WBC 13.2, hemoglobin 8.7, hematocrit 27.4, platelet count 441. Sodium 136, potassium 5, chloride 101, carbon dioxide 30, BUN 25, creatinine 0.93, GFR greater than 60, fasting glucose 101, calcium 8.1, C-reactive protein 3.17. PT is 30.7, INR is 2.94. ASSESSMENT AND PLAN: 1. Acute hypoxic respiratory failure secondary to recurrent aspiration pneumonia. Patient has finished a course of meropenem and patient is receiving aerosol mask for humidification and lung expansion. We appreciate respiratory therapy's assistance. 2. History of deep venous thrombosis (DVT)/pulmonary embolus (PE). Patient is on warfarin. Currently INR is in the therapeutic range. Previously patient had a supratherapeutic INR due to concurrent use of Diflucan. Will adjust warfarin on a daily basis. 3. History of supratherapeutic INR due to warfarin and Diflucan use. 4. Yeast infection at wound site, in urine and sputum. Patient is currently on Diflucan. Repeat urine culture is negative so far. 5. History of Alzheimer's disease, advanced stage. Patient has been bedridden. 6. Hypothyroidism, on Synthroid. 7. History of seizure disorder, on home medication. 8. History of CVA. 9. Severe protein malnutrition. Patient is on tube feedings. Tunnel Heading Inspector has been consulted. 10. Acute on chronic renal failure secondary to dehydration. Renal function has resolved. 11. Subcapsular hematoma. General surgery recommended conservative management. 12. History of small pericardial effusion. 13. Deep venous thrombosis (DVT) prophylaxis. Patient is on warfarin. INR is therapeutic.
[2016-06-07] MEDS: WARFARIN SOD 1 MG TAB PO SCH (17:18)
[2016-06-07 20:40] VITALS: O2SAT 96
[2016-06-07] MEDS: MIRTAZAPINE 15 MG TAB PO SCH (21:42)
[2016-06-07 22:00] VITALS: BP 121/56
[2016-06-08] MEDS: SLF 3 ML SYR IV SCH ×3 (05:55→21:22)
[2016-06-08 06:00] VITALS: BP 120/61
[2016-06-08] MEDS: IPRATROPIUM 0.5MG/ALBUTEROL 2.5MG INH SOL UD 3ML (DUONEB)(J7620) NEB PRN ×3 (06:30→19:22)
[2016-06-08] MEDS: ACYCLOVIR 200 MG CAPSULE PO SCH ×3 (06:34→20:57)
[2016-06-08] MEDS: LEVOTHYROXINE 0.075 MG TAB (75 MCG) PO SCH (06:34)
[2016-06-08 06:51] LABS: BASO % 0.2 % (0.0-1.0); EOS # 0.9 K/mm3 (0.0-0.50); EOS % 6.8 % (0.0-3.0); LARGE UNSTAINED CELL # 0.3 K/mm3 (0.0-0.4); LYMPH # 1.8 K/mm3 (1.5-4.5); LYMPH % 10.9 % (24.0-44.0); MEAN CORPUSCULAR HEMOGLOBIN 28.5 pg (27.0-33.0); MEAN CORPUSCULAR HGB CONC 32.1 g/dl (32.0-36.5); MONO # 0.6 K/mm3 (0.0-0.8); MONO % 4.4 % (0.0-5.0); NEUTROPHILS # 10.2 K/mm3 (1.8-7.7); NEUTROPHILS % 75.6 % (36.0-66.0); PLATELET COUNT, AUTOMATED 431 k/mm3 (150-450); WHITE BLOOD COUNT 13.5 K/mm3 (4.0-10.0)
[2016-06-08 06:58] LABS: INR 3.94
[2016-06-08 06:59] LABS: CALCIUM LEVEL 8.8 MG/DL (8.8-10.2); CREATININE FOR GFR 0.99 MG/DL (0.55-1.02); GLOMERULAR FILTRATION RATE 56.4 (>32); POTASSIUM SERUM 4.9 MEQ/L (3.5-5.1)
[2016-06-08] MEDS: ALPRAZolam 0.25 MG TAB PO SCH ×4 (09:00→18:03)
--- NOTE | 2016-06-08 09:35 | REP ---
Followup pneumonia. COMPARISON: 05/29/2016 Patchy left basilar opacity with cardiophrenic angle and costophrenic angle blunting has improved. Stable fibrotic changes seen throughout the lung holguin. Stable cardiomegaly. Stable osseous structures. The technique utilized in obtaining the radiograph has magnified the cardiac silhouette and accentuated the interstitial markings. IMPRESSION: Improvement. Signed by Brian Armstrong DO 06/08/2016 09:40 A
[2016-06-08] MEDS: NYSTATIN 500,000 U/5 ML SUSP UDC SSP SCH ×3 (09:43→20:56)
[2016-06-08] MEDS: LANSOPRAZOLE SUSPENSION 30 MG/10 ML ORAL SYRINGE (FIRST-LANSOPRAZOLE) PO SCH ×2 (09:43→20:57)
[2016-06-08] MEDS: LACOSAMIDE 50 MG TAB (VIMPAT) PO SCH ×2 (09:43→20:57)
[2016-06-08] MEDS: SUCRALFATE SUSP 1GM/10ML UD PO SCH ×3 (09:43→16:45)
[2016-06-08 11:25] VITALS: O2SAT 94
[2016-06-08] MEDS: FLUCONAZOLE 200 MG in APPROPRIATE DILUENT 1 EA IV SCH (14:42)
[2016-06-08] MEDS: ACETAMINOPHEN 325 MG/10.15 ML UDC GT PRN (16:57)
--- NOTE | 2016-06-08 18:53 | IPN ---
DATE: 06/08/2016 SUBJECTIVE: Patient is seen and examined in the room today. Patient's daughter, the healthcare proxy, is also present in the room. Patient has intermittent awakeness, however patient is not able to communicate and patient is nonverbal, not able to follow commands. There is a time that patient was off the Ventimask and patient's oxygen saturation has been maintained in the normal range. Per patient's daughter, patient started bringing up more phlegm and patient's healthcare proxy has objection with regard to the tube feeding regimen recommended by hand presser. She would like to discuss in more detail and she would like to make some recommendations for the tube feeding. OBJECTIVE: VITAL SIGNS: Temperature 97.7, pulse 99, respirations 18, blood pressure 120/61, pulse oximetry 94% with 5.5 oxygen flow rate. GENERAL: Patient is not awake or alert and patient is not able to follow commands or answer questions. HEENT: Still some minor ecchymosis and mild blister on the rim of the lips, improving. CARDIOVASCULAR: Positive S1, S2, regular rate. LUNGS: Still has some coarse lung sounds, but no significant wheezes. ABDOMEN: Gastrostomy-Jejunostomy (G-J) tube in place. Abdomen is soft, nontender. EXTREMITIES: No edema. No sign of cyanosis. LABORATORY DATA: WBC 13.5, hemoglobin 9.4, hematocrit 29.2, platelet count 431. Sodium 135, potassium 4.9, chloride 102, carbon dioxide 38, BUN 26, creatinine 0.99, GFR 56.4, fasting glucose 97, calcium 8.8, C-reactive protein 3.6. ASSESSMENT AND PLAN: 1. Acute hypoxic respiratory failure secondary to recurrent aspiration pneumonia. Patient just finished a course of meropenem. Patient is currently on Ventimask or aerosol mask for humidification of the lung and lung expansion. We continue to monitor patient but it seems that patient's oxygenation is quite adequate with the current oxygen support. Patient's healthcare proxy stated she would like the patient to be on humidified aerosol masks before considering weaning of the oxygen. 2. History of deep venous thrombosis (DVT) and pulmonary embolus (PE). Patient is on warfarin. Patient's INR is actually supratherapeutic, it is 3.9. Will hold the warfarin for today. 3. History of supratherapeutic INR due to warfarin and Diflucan interaction. 4. Yeast infection around the wound site, in the urine, and in the sputum. Patient is on Diflucan. 5. History of Alzheimer's disease, advanced stage. Patient has been bedridden. 6. Hypothyroidism. On Synthroid. 7. History of seizure disorder. On home medication. 8. History of CVA. 9. Severe protein malnutrition. Patient is on tube feedings. Veterinary Technician Instructor has been seeing the patient on a regular basis, however patient's healthcare proxy has some objection with regard to the recommendations. Would be appropriate if the healthcare proxy can have a discussion with the hand presser to explain both parties' needs. 10. Acute on chronic renal failure secondary to dehydration. Continue to monitor renal function. 11. Subcapsular hematoma. Surgical team is recommending conservative medical management. 12. Deep venous thrombosis (DVT) prophylaxis. Patient had supratherapeutic INR today. Continue to monitor.
[2016-06-08 19:15] VITALS: O2SAT 97
[2016-06-08] MEDS: LOPERAMIDE ORAL SOLN 1MG/5ML UD GT PRN (20:56)
[2016-06-08] MEDS: MIRTAZAPINE 15 MG TAB PO SCH (20:57)
[2016-06-08 22:00] VITALS: BP 131/59
[2016-06-09] MEDS: LEVOTHYROXINE 0.075 MG TAB (75 MCG) PO SCH (05:11)
[2016-06-09] MEDS: SLF 3 ML SYR IV SCH ×3 (05:12→21:43)
[2016-06-09] MEDS: ACYCLOVIR 200 MG CAPSULE PO SCH ×3 (05:12→21:43)
[2016-06-09 06:00] VITALS: BP 103/65
[2016-06-09 06:42] LABS: BASO % 0.3 % (0.0-1.0); EOS # 0.6 K/mm3 (0.0-0.50); EOS % 4.2 % (0.0-3.0); LARGE UNSTAINED CELL # 0.2 K/mm3 (0.0-0.4); LARGE UNSTAINED CELL % 1.3 % (0.0-4.0); LYMPH # 1.1 K/mm3 (1.5-4.5); LYMPH % 6.7 % (24.0-44.0); MEAN CORPUSCULAR HEMOGLOBIN 29.2 pg (27.0-33.0); MEAN CORPUSCULAR HGB CONC 32.7 g/dl (32.0-36.5); MEAN CORPUSCULAR VOLUME 89.1 fl (80.0-96.0); MONO # 0.5 K/mm3 (0.0-0.8); MONO % 3.5 % (0.0-5.0); NEUTROPHILS # 11.3 K/mm3 (1.8-7.7); PLATELET COUNT, AUTOMATED 422 k/mm3 (150-450); RED CELL DISTRIBUTION WIDTH 15.1 % (11.5-14.5); WHITE BLOOD COUNT 13.4 K/mm3 (4.0-10.0)
[2016-06-09 06:49] LABS: INR 3.54
[2016-06-09 07:02] LABS: CALCIUM LEVEL 8.7 MG/DL (8.8-10.2); CREATININE FOR GFR 1.02 MG/DL (0.55-1.02); GLOMERULAR FILTRATION RATE 54.4 (>32); POTASSIUM SERUM 4.4 MEQ/L (3.5-5.1)
[2016-06-09] MEDS: IPRATROPIUM 0.5MG/ALBUTEROL 2.5MG INH SOL UD 3ML (DUONEB)(J7620) NEB PRN ×2 (08:20→20:45)
[2016-06-09] MEDS: ALPRAZolam 0.25 MG TAB PO SCH ×5 (09:00→19:00)
[2016-06-09] MEDS: LACOSAMIDE 50 MG TAB (VIMPAT) PO SCH ×2 (09:48→21:42)
[2016-06-09] MEDS: SUCRALFATE SUSP 1GM/10ML UD PO SCH ×3 (09:48→18:15)
[2016-06-09] MEDS: NYSTATIN 500,000 U/5 ML SUSP UDC SSP SCH ×3 (09:49→21:41)
[2016-06-09] MEDS: LANSOPRAZOLE SUSPENSION 30 MG/10 ML ORAL SYRINGE (FIRST-LANSOPRAZOLE) PO SCH ×2 (09:49→21:41)
[2016-06-09 14:00] VITALS: BP 125/56
[2016-06-09] MEDS: FLUCONAZOLE 200 MG in APPROPRIATE DILUENT 1 EA IV SCH (14:13)
--- NOTE | 2016-06-09 18:27 | IPN ---
DATE: 06/09/2016 SUBJECTIVE: The patient is seen and examined in the room today. The patient is not awake, alert and the patient is not able to answer questions or follow commands. Per staff who have been taking care of her, she does not have any acute worsening of the symptoms. OBJECTIVE: VITAL SIGNS: Temperature is 97.8, pulse is 105, respirations 20, blood pressure is 103/65, pulse oximetry is 98% on a Ventimask, FiO2 of 28. GENERAL: The patient is not alert and awake. No sign of physical distress. The patient is not oriented. The patient is not able to answer questions or follow commands. HEENT: Some ecchymosis and mild blister n the rim of the lips, improving. CARDIOVASCULAR: Positive S1, S2, regular rate. LUNGS: Still has coarse lung sounds. No significant wheezes. ABDOMEN: Gastrostomy-jejunostomy (G-J) tube in place. Abdomen is soft, nontender. EXTREMITIES: No edema, no sign of cyanosis. LABORATORY DATA: WBC is 13.4, hemoglobin 9.4, hematocrit 28.8, platelet count is 422. Sodium is 138, potassium 4.4, chloride 102, carbon dioxide 29, BUN 30, creatinine 1.02, GFR is 54.4, fasting glucose 155, calcium is 8.7, C-reactive protein is 7.53. ASSESSMENT AND PLAN: 1. Acute hypoxic respiratory failure secondary to recurrent aspiration pneumonia. The patient just finished a course of meropenem. The patient is currently on a Ventimask. Respiratory therapist has been helping with the patient's respiratory management. 2. Acute renal injury. The patient's dietitian has been consulted and patient being evaluated multiple times and the patient's tube feeding has been adjusted a few times according to patient's protein-calorie needs and also for patient's fluid requirement. However, patient's caregiver, the daughter, has some concerns about the design of the tube feeding regimen and the meeting was supposed to be set up with the dietitian and the patient's proxy to discuss the need for both parties. and the patient currently started having worsening of renal function. The patient would benefit from additional fluid intake. Previously, the tube feeding regimen has been modified to accommodate more fluid intake. 3. History of pulmonary embolism (PE) and deep vein thrombosis (DVT). Patient is on warfarin. Currently the patient still has a supratherapeutic INR due to concurrent use of the Diflucan. Warfarin has been on hold for the past few days. Will adjust the Coumadin dose on a daily basis. 4. Supratherapeutic INR due to warfarin and Diflucan. 5. Yeast infection at the GJ tube insertion site, in the sputum and in the urine. The patient has been on the Diflucan since May 28, 2016. Repeat urine culture came back negative. Will continue to assess the patient. 6. History of Alzheimer's disease, advanced stage. The patient has been bedbound even at baseline. 7. Hypothyroidism. On Synthroid. 8. History of seizure disorder. 9. History of cerebrovascular accident. 10. Severe protein malnutrition. On tube feeding. Will appreciate the dietitian's recommendations. Tube feeding regimen will be adjusted after a discussion between the sign painter apprentice and the patient's daughter, the proxy. 11. Subcapsular hematoma. Surgical team recommended conservative management. 12. Deep vein thrombosis (DVT) prophylaxis. Patient has supratherapeutic INR. Continue to monitor.
[2016-06-09 20:00] VITALS: BP 141/77
[2016-06-09] MEDS: MIRTAZAPINE 15 MG TAB PO SCH (21:43)
[2016-06-10 06:00] VITALS: BP 127/61
[2016-06-10] MEDS: LEVOTHYROXINE 0.075 MG TAB (75 MCG) PO SCH (06:14)
[2016-06-10] MEDS: ACYCLOVIR 200 MG CAPSULE PO SCH ×3 (06:15→21:33)
[2016-06-10] MEDS: SLF 3 ML SYR IV SCH ×3 (06:16→21:33)
[2016-06-10] MEDS: SUCRALFATE SUSP 1GM/10ML UD PO SCH ×3 (06:16→17:30)
[2016-06-10 06:46] LABS: BASO % 0.4 % (0.0-1.0); EOS # 0.6 K/mm3 (0.0-0.50); EOS % 5.9 % (0.0-3.0); LARGE UNSTAINED CELL # 0.3 K/mm3 (0.0-0.4); LARGE UNSTAINED CELL % 3.1 % (0.0-4.0); LYMPH # 1.1 K/mm3 (1.5-4.5); LYMPH % 11.4 % (24.0-44.0); MEAN CORPUSCULAR HEMOGLOBIN 28.6 pg (27.0-33.0); MEAN CORPUSCULAR HGB CONC 32.2 g/dl (32.0-36.5); MEAN CORPUSCULAR VOLUME 88.8 fl (80.0-96.0); MONO # 0.6 K/mm3 (0.0-0.8); NEUTROPHILS % 73.2 % (36.0-66.0); PLATELET COUNT, AUTOMATED 377 k/mm3 (150-450); RED CELL DISTRIBUTION WIDTH 15.1 % (11.5-14.5); WHITE BLOOD COUNT 9.5 K/mm3 (4.0-10.0)
[2016-06-10 07:03] LABS: CALCIUM LEVEL 8.5 MG/DL (8.8-10.2); GLOMERULAR FILTRATION RATE 55.7 (>32); POTASSIUM SERUM 4.5 MEQ/L (3.5-5.1)
[2016-06-10 08:23] LABS: INR 2.2
[2016-06-10] MEDS: IPRATROPIUM 0.5MG/ALBUTEROL 2.5MG INH SOL UD 3ML (DUONEB)(J7620) NEB PRN ×2 (08:33→19:48)
[2016-06-10] MEDS: NYSTATIN 500,000 U/5 ML SUSP UDC SSP SCH ×3 (10:39→21:32)
[2016-06-10] MEDS: LOPERAMIDE ORAL SOLN 1MG/5ML UD GT PRN (10:39)
[2016-06-10] MEDS: ALPRAZolam 0.25 MG TAB PO SCH ×4 (10:40→22:37)
[2016-06-10] MEDS: LANSOPRAZOLE SUSPENSION 30 MG/10 ML ORAL SYRINGE (FIRST-LANSOPRAZOLE) PO SCH ×2 (10:40→21:32)
[2016-06-10] MEDS: LACOSAMIDE 50 MG TAB (VIMPAT) PO SCH ×2 (10:40→21:33)
[2016-06-10 14:00] VITALS: BP 122/57
[2016-06-10] MEDS: FLUCONAZOLE 200 MG in APPROPRIATE DILUENT 1 EA IV SCH (15:51)
--- NOTE | 2016-06-10 16:22 | IPNPDOC ---
Text Note Date of Service The patient was seen on 06/10/16. NOTE Subjective: Nonverbal. No acute changes overnight. Objective: PHYSICAL EXAMINATION: Vitals: (see below) General: No acute distress, laying comfortably in bed. HEENT: Moist mucous membranes. Neck: No JVD or lymphadenopathy Cardiac: RRR, No murmurs Pulm: Coarse crackles b/l bases. No wheezing. +rhonchi Abd: NT/ND + BS. G-J tube intact. No erythema/induration/drainage. Ext: No edema or cyanosis LABORATORY DATA: See below. IMAGING: CT Chest 05/18/16 Impression: 1. Almost complete resolution of the left lower lobe consolidation. Small left lower lobe pleural effusion with left lower lobe atelectasis remains. 2. Stable cardiomegaly with tiny pericardial effusion. 3. Scoliosis with compression fractures of the lumbar spine are unchanged. MICROBIOLOGY: Please see below. ASSESSMENT/PLAN: 1. Acute hypoxic respiratory failure likely secondary to aspiration pneumonia, which is recurrent. Recently had GJ-tube placed on 05/[address] Vaca. Had a large emesis and aspirated again shortly after and was on a nonrebreather. on RA now. Patient was made DNR/DNI on 05/24/16.s/p meropenem. s/p vancomycin. s/p fluconazole. 2. Persistent leukocytosis-resolved. 2/ #1. s/p broad-spectrum antibiotics and antifungal. Patient did have a CT abdomen and pelvis (see above). Repeat CT abd/pelvis today. Appreciate Dr. Xiong's input. 3. 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 Advanced Alzheimer's, bedridden, minimally verbal 5. Hypothyroidism- continue Synthroid 6. Seizure disorder- continue home meds 7. History of CVA 8. Severe protein calorie malnutrition status post GJ tube 9. Constipation- suppository, Colace, MiraLAX. 10. Small pericardial effusion- echocardiogram pending 11. Subcapsular hematoma- discussed with Dr. Xiong, likely resolve on its own. DVT prophylaxis enoxaparin DNR/DNI Plan to d/c tomorrow. VS,Fishbone, I+O VS, Fishbone, I+O Laboratory Tests 06/10/16 06:32 Calcium Level 8.5 L, Red Blood Count 3.06 L, Mean Corpuscular Volume 88.8, Mean Corpuscular Hemoglobin 28.6, Mean Corpuscular Hemoglobin Concent 32.2, Red Cell Distribution Width 15.1 H, Neutrophils (%) (Auto) 73.2 H, Lymphocytes (%) (Auto ) 11.4 L, Monocytes (%) (Auto) 6.0 H, Eosinophils (%) (Auto) 5.9 H, Basophils (% ) (Auto) 0.4, Neutrophils # (Auto) 7.0, Lymphocytes # (Auto) 1.1 L, Monocytes # (Auto) 0.6, Eosinophils # (Auto) 0.6 H, Basophils # (Auto) 0.0 Vital Signs Date Time Temp Pulse Resp B/P Pulse Ox O2 Delivery O2 Flow Rate FiO2 06/10/16 06:00 98.1 97 20 98 Aerosol Mask 5.0 28 06/10/16 06:00 127/61 I&O- Last 24 Hours up to 6 AM 06/10/16 05:59 Intake Total 0 ml Output Total 0 ml Balance 0 ml GIANFRANCO ATWOOD MD Jun 10, 2016 16:22
[2016-06-10 19:47] VITALS: O2SAT 98
[2016-06-10] MEDS: MIRTAZAPINE 15 MG TAB PO SCH (21:32)
[2016-06-10 22:00] VITALS: BP 116/60
[2016-06-11] MEDS: ALPRAZolam 0.25 MG TAB PO SCH ×5 (01:16→19:00)
[2016-06-11 06:00] VITALS: BP 127/96
[2016-06-11] MEDS: LEVOTHYROXINE 0.075 MG TAB (75 MCG) PO SCH (06:09)
[2016-06-11] MEDS: SLF 3 ML SYR IV SCH ×3 (06:10→19:47)
[2016-06-11] MEDS: ACYCLOVIR 200 MG CAPSULE PO SCH ×3 (06:10→19:47)
[2016-06-11 07:34] LABS: BASO % 0.2 % (0.0-1.0); EOS # 0.7 K/mm3 (0.0-0.50); LARGE UNSTAINED CELL # 0.2 K/mm3 (0.0-0.4); LARGE UNSTAINED CELL % 2.5 % (0.0-4.0); LYMPH # 1.1 K/mm3 (1.5-4.5); LYMPH % 11.1 % (24.0-44.0); MEAN CORPUSCULAR HEMOGLOBIN 29.4 pg (27.0-33.0); MEAN CORPUSCULAR HGB CONC 33.5 g/dl (32.0-36.5); MEAN CORPUSCULAR VOLUME 87.9 fl (80.0-96.0); MONO # 0.6 K/mm3 (0.0-0.8); MONO % 6.6 % (0.0-5.0); NEUTROPHILS % 72.5 % (36.0-66.0); PLATELET COUNT, AUTOMATED 359 k/mm3 (150-450); RED CELL DISTRIBUTION WIDTH 15.2 % (11.5-14.5); WHITE BLOOD COUNT 9.6 K/mm3 (4.0-10.0)
[2016-06-11 07:46] LABS: INR 1.64
[2016-06-11 07:51] LABS: CALCIUM LEVEL 8.3 MG/DL (8.8-10.2); CREATININE FOR GFR 0.99 MG/DL (0.55-1.02); GLOMERULAR FILTRATION RATE 56.4 (>32); POTASSIUM SERUM 4.7 MEQ/L (3.5-5.1)
[2016-06-11] MEDS: IPRATROPIUM 0.5MG/ALBUTEROL 2.5MG INH SOL UD 3ML (DUONEB)(J7620) NEB PRN ×3 (08:31→16:51)
[2016-06-11] MEDS: SUCRALFATE SUSP 1GM/10ML UD PO SCH ×3 (09:46→17:44)
[2016-06-11] MEDS: LANSOPRAZOLE SUSPENSION 30 MG/10 ML ORAL SYRINGE (FIRST-LANSOPRAZOLE) PO SCH ×2 (09:47→19:45)
[2016-06-11] MEDS: LACTOBACILLUS ACIDOPHILUS CAP (BACID) PO SCH (09:47)
[2016-06-11] MEDS: NYSTATIN 500,000 U/5 ML SUSP UDC SSP SCH ×3 (09:47→19:46)
[2016-06-11] MEDS: LACOSAMIDE 50 MG TAB (VIMPAT) PO SCH ×2 (09:48→19:47)
[2016-06-11] MEDS ORDERED: RISATAB3 PO (12:49)
--- NOTE | 2016-06-11 13:47 | IPNPDOC ---
Text Note Date of Service The patient was seen on 06/11/16. NOTE Subjective: Nonverbal. No acute changes overnight. Objective: PHYSICAL EXAMINATION: Vitals: (see below) General: No acute distress, laying comfortably in bed. HEENT: Moist mucous membranes. Neck: No JVD or lymphadenopathy Cardiac: RRR, No murmurs Pulm: Coarse crackles b/l bases. No wheezing. +rhonchi Abd: NT/ND + BS. G-J tube intact. No erythema/induration/drainage. Ext: No edema or cyanosis LABORATORY DATA: See below. IMAGING: CT Chest 05/18/16 Impression: 1. Almost complete resolution of the left lower lobe consolidation. Small left lower lobe pleural effusion with left lower lobe atelectasis remains. 2. Stable cardiomegaly with tiny pericardial effusion. 3. Scoliosis with compression fractures of the lumbar spine are unchanged. MICROBIOLOGY: Please see below. ASSESSMENT/PLAN: 1. Acute hypoxic respiratory failure likely secondary to aspiration pneumonia, which is recurrent. Recently had GJ-tube placed on 05/[address] Vaca. Had a large emesis and aspirated again shortly after and was on a nonrebreather. on RA now. Patient was made DNR/DNI on 05/24/16.s/p meropenem. s/p vancomycin. s/p fluconazole. 2. Persistent leukocytosis-resolved. 2/2 #1. s/p broad-spectrum antibiotics and antifungal. Patient did have a CT abdomen and pelvis (see above). Repeat CT abd/pelvis today. Appreciate Dr. Xiong's input. 3. 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 Advanced Alzheimer's, bedridden, minimally verbal 5. Hypothyroidism- continue Synthroid 6. Seizure disorder- continue home meds 7. History of CVA 8. Severe protein calorie malnutrition status post GJ tube 9. Constipation- suppository, Colace, MiraLAX. 10. Small pericardial effusion- echocardiogram pending 11. Subcapsular hematoma- discussed with Dr. Xiong, likely resolve on its own. DVT prophylaxis coumadin DNR/DNI Plan to d/c tomorrow after Randal teaches family about tube feeding. VS,Fishbone, I+O VS, Fishbone, I+O Laboratory Tests 06/11/16 07:12 Calcium Level 8.3 L, Red Blood Count 2.85 L, Mean Corpuscular Volume 87.9, Mean Corpuscular Hemoglobin 29.4, Mean Corpuscular Hemoglobin Concent 33.5, Red Cell Distribution Width 15.2 H, Neutrophils (%) (Auto) 72.5 H, Lymphocytes (%) (Auto ) 11.1 L, Monocytes (%) (Auto) 6.6 H, Eosinophils (%) (Auto) 7.0 H, Basophils (% ) (Auto) 0.2, Neutrophils # (Auto) 7.0, Lymphocytes # (Auto) 1.1 L, Monocytes # (Auto) 0.6, Eosinophils # (Auto) 0.7 H, Basophils # (Auto) 0.0 Vital Signs Date Time Temp Pulse Resp B/P Pulse Ox O2 Delivery O2 Flow Rate FiO2 06/11/16 08:45 Venturi Mask 5.0 28 06/11/16 06:00 98.9 97 18 127/96 97 I&O- Last 24 Hours up to 6 AM 06/11/16 06:00 Intake Total 0 ml Balance 0 ml GIANFRANCO ATWOOD MD Jun 11, 2016 13:47
[2016-06-11 14:00] VITALS: BP 109/55
[2016-06-11] MEDS ORDERED: WARFARIN SOD 2.5 MG TAB PO SCH (17:00)
[2016-06-11] MEDS: MIRTAZAPINE 15 MG TAB PO SCH (19:46)
[2016-06-11 22:00] VITALS: BP 124/58
[2016-06-12] MEDS: ACYCLOVIR 200 MG CAPSULE PO SCH (05:48)
[2016-06-12] MEDS: LEVOTHYROXINE 0.075 MG TAB (75 MCG) PO SCH (05:48)
[2016-06-12] MEDS: SLF 3 ML SYR IV SCH (05:48)
[2016-06-12 06:00] VITALS: BP 135/62
[2016-06-12 06:59] LABS: BASO % 0.3 % (0.0-1.0); EOS # 0.5 K/mm3 (0.0-0.50); EOS % 3.7 % (0.0-3.0); LARGE UNSTAINED CELL # 0.2 K/mm3 (0.0-0.4); LARGE UNSTAINED CELL % 1.9 % (0.0-4.0); LYMPH # 1.1 K/mm3 (1.5-4.5); LYMPH % 8.1 % (24.0-44.0); MEAN CORPUSCULAR HEMOGLOBIN 28.9 pg (27.0-33.0); MEAN CORPUSCULAR HGB CONC 32.6 g/dl (32.0-36.5); MEAN CORPUSCULAR VOLUME 88.8 fl (80.0-96.0); MONO # 0.7 K/mm3 (0.0-0.8); MONO % 5.1 % (0.0-5.0); NEUTROPHILS # 10.6 K/mm3 (1.8-7.7); PLATELET COUNT, AUTOMATED 420 k/mm3 (150-450); RED CELL DISTRIBUTION WIDTH 15.2 % (11.5-14.5); WHITE BLOOD COUNT 13.1 K/mm3 (4.0-10.0)
[2016-06-12 07:01] LABS: INR 1.47
[2016-06-12 07:09] LABS: CALCIUM LEVEL 8.3 MG/DL (8.8-10.2); CREATININE FOR GFR 1.06 MG/DL (0.55-1.02); GLOMERULAR FILTRATION RATE 52.1 (>32); POTASSIUM SERUM 4.6 MEQ/L (3.5-5.1)
[2016-06-12] MEDS: SUCRALFATE SUSP 1GM/10ML UD PO SCH ×2 (07:30→12:44)
[2016-06-12] MEDS: IPRATROPIUM 0.5MG/ALBUTEROL 2.5MG INH SOL UD 3ML (DUONEB)(J7620) NEB PRN (08:55)
[2016-06-12] MEDS: ALPRAZolam 0.25 MG TAB PO SCH (09:00)
--- NOTE | 2016-06-12 10:55 | REP ---
Chest CT without IV contrast: Comparison is 05/30/2016. The left basilar infiltrate has significantly improved and has almost entirely resolved. The right basilar infiltrate has moderately improved, although residual persists. The previous small bilateral pleural effusions have resolved. There is a pericardial effusion focally posterolaterally on the left measuring 17 mm in depth, not significantly changed. No pericardial fluid is identified throughout the remainder of the pericardial space. This is unchanged. There is a fixed hiatal hernia, unchanged. There are no new infiltrates. No mediastinal or axillary adenopathy is identified as previously. In the absence of IV contrast the study is insensitive for hilar fee. The unenhanced thoracic aorta is unremarkable. Cardiac size is enlarged, as previously. Upper abdomen: There is a gastric tube terminating in the descending portion of the duodenal loop. This is unchanged. There is no gastric distension. The visualized upper abdominal contents are otherwise unremarkable. Impression: There has been significant improvement in the left basilar infiltrate. There has been mild improvement right basilar infiltrate. The previous small bilateral pleural effusions have resolved. Persisting cardiomegaly. There is a focal pericardial effusion on the left, unchanged. There is a gastric tube terminating in the descending portion of the duodenal loop, unchanged. Signed by Bonifacio Lara MD 06/12/2016 10:48 A
[2016-06-12] MEDS: LACOSAMIDE 50 MG TAB (VIMPAT) PO SCH (12:42)
[2016-06-12] MEDS ORDERED: MUCI1LIQ PO (12:42)
[2016-06-12] MEDS: LACTOBACILLUS ACIDOPHILUS CAP (BACID) PO SCH (12:43)
[2016-06-12] MEDS: LANSOPRAZOLE SUSPENSION 30 MG/10 ML ORAL SYRINGE (FIRST-LANSOPRAZOLE) PO SCH (12:43)
[2016-06-12] MEDS: NYSTATIN 500,000 U/5 ML SUSP UDC SSP SCH (12:44)
[2016-06-12] MEDS: LOPERAMIDE ORAL SOLN 1MG/5ML UD GT PRN (12:44)
--- NOTE | 2016-06-12 14:45 | DS.PDOC ---
Discharge Summary General Date of Admission May 18, 2016 at 02:30 Date of Discharge 06/12/16 Attending Physician: GIANFRANCO ATWOOD MD Specialist/Consultants Involve: Tyrese Ramesh,Orlando Mcfadden Discharge Summary PROCEDURES PERFORMED DURING STAY: GJ-tube Insertion ADMITTING/DISCHARGE DIAGNOSES: 1. Status post acute hypoxic respiratory failure secondary to aspiration pneumonia 2. History of DVT/PE on Coumadin 3. Severe protein calorie malnutrition status post GJ tube 4. Advanced Alzheimer's dementia bedridden 5. Hypothyroidism 6. Seizure disorder 7. History of CVA 8. Subcapsular hematoma COMPLICATIONS/CHIEF COMPLAINT: Pneumonia. HISTORY OF PRESENT ILLNESS/HOSPITAL COURSE: . This is a 82-year-old female with a past medical history of CVA, DVT/PE on Coumadin, advanced Alzheimer's disease bedridden and nonverbal for the most part , hypothyroidism nocturnal hypoxia on O2, history of C. difficile who was recently discharged after being treated for left-sided pneumonia comes in with daughter with complaints of fevers. Patient was recently discharged on clindamycin which she has been taking. Patient been spiking MAXIMUM TEMPERATURE of 102.8. Had also been congested with decreased by mouth intake. Patient has apparently been choking and coughing on a honey thickened diet. During the course of hospitalization, patient's was started on broad-spectrum antibiotics for aspiration pneumonia, had severe malnutrition and had a GJ tube placed after which she aspirated again. Patient completed her broad-spectrum antibiotics and started to develop early drainage from the GJ tube site. Her cultures of the sputum, urine, as well as the drainage around her GJ tube was all positive for yeast. Patient was placed on fluconazole completed her course of antifungal. Although patient has tolerated the above therapy, she does have significantly poor prognosis. Have discussed the patient's prognosis with the daughter, patient was made DNR/DNI, however with active medical therapy. I have discussed the possibility of hospice and comfort measures only, however the daughter would like to continue with active medical therapy. The patient is at very high risk of aspirating again and developing recurrent urinary tract infections and recurrent hospitalizations; daughter is aware. DISCHARGE MEDICATIONS: Please see below. ALLERGIES: Please see below. PHYSICAL EXAMINATION ON DISCHARGE: Vitals: (see below) General: No acute distress, laying comfortably in bed. HEENT: Moist mucous membranes. Neck: No JVD or lymphadenopathy Cardiac: RRR, No murmurs Pulm: Coarse crackles b/l bases. No wheezing. +rhonchi Abd: NT/ND + BS. G-J tube intact. No erythema/induration/drainage. Ext: No edema or cyanosis LABORATORY DATA: Please see below. IMAGING: CT Chest 05/18/16 Impression: 1. Almost complete resolution of the left lower lobe consolidation. Small left lower lobe pleural effusion with left lower lobe atelectasis remains. 2. Stable cardiomegaly with tiny pericardial effusion. 3. Scoliosis with compression fractures of the lumbar spine are unchanged. PROGNOSIS: Poor ACTIVITY: As tolerated. DIET: Tube feeds Jevity; prescription given DISCHARGE PLAN/DISPOSITION: Discharged home with family; home care DISCHARGE INSTRUCTIONS: 1. PCP in 1-2 days. Follow-up with Dr. Xiong as needed. INR checked in 1-2 days, with results sent to primary care physician. DISCHARGE CONDITION: Stable. TIME SPENT ON DISCHARGE: Greater than 30 minutes. Vital Signs/I&Os Vital Signs Date Time Temp Pulse Resp B/P Pulse Ox O2 Delivery O2 Flow Rate FiO2 06/12/16 10:59 99 Nasal Cannula 2.0 06/12/16 08:00 28 06/12/16 06:00 100.3 102 18 135/62 I&O- Last 24 Hours up to 6 AM 06/12/16 06:00 Intake Total 850 ml Output Total 0 ml Balance 850 ml Laboratory Data Labs 24H Laboratory Tests 2 06/12/16 06:27: Anion Gap 6L, White Blood Count 13.1H, Red Blood Count 3.09L, Hemoglobin 8.9L, Hematocrit 27.4L, Mean Corpuscular Volume 88.8, Mean Corpuscular Hemoglobin 28.9 , Mean Corpuscular Hemoglobin Concent 32.6, Red Cell Distribution Width 15.2H, Platelet Count 420, Neutrophils (%) (Auto) 81.0H, Lymphocytes (%) (Auto) 8.1L, Monocytes (%) (Auto) 5.1H, Eosinophils (%) (Auto) 3.7H, Basophils (%) (Auto) 0.3 , Neutrophils # (Auto) 10.6H, Lymphocytes # (Auto) 1.1L, Monocytes # (Auto) 0.7 , Eosinophils # (Auto) 0.5, Basophils # (Auto) 0.0, Blood Urea Nitrogen 29H, Creatinine 1.06H, Sodium Level 136, Potassium Level 4.6, Chloride Level 101, Carbon Dioxide Level 29, Calcium Level 8.3L, Glomerular Filtration Rate 52.1, Large Unclassified Cells # 0.2, Large Unclassified Cells % 1.9, Prothromb Time International Ratio 1.47, Prothrombin Time 17.9H CBC/BMP Laboratory Tests 06/12/16 06:27 Calcium Level 8.3 L, Red Blood Count 3.09 L, Mean Corpuscular Volume 88.8, Mean Corpuscular Hemoglobin 28.9, Mean Corpuscular Hemoglobin Concent 32.6, Red Cell Distribution Width 15.2 H, Neutrophils (%) (Auto) 81.0 H, Lymphocytes (%) (Auto ) 8.1 L, Monocytes (%) (Auto) 5.1 H, Eosinophils (%) (Auto) 3.7 H, Basophils (% ) (Auto) 0.3, Neutrophils # (Auto) 10.6 H, Lymphocytes # (Auto) 1.1 L, Monocytes # (Auto) 0.7, Eosinophils # (Auto) 0.5, Basophils # (Auto) 0.0 Microbiology Microbiology 06/03/16 Clostridium difficile (PCR) - Final, Complete 06/05/16 Urine Culture - Final, Complete Discharge Medications Scheduled ( Vitamin 27-0.8 mg) 1 Tab Tab 1 TAB PO DAILY (Reported) (Imodium A-D) 2 Mg Cap 2 MG PO TID (Reported) (Deepthi-Bid Probiotic) 1 Tab Tab 1 EA PO DAILY Alprazolam (Xanax) 0.25 Mg Tab 0.25 MG PO QID (Reported) AT 0900, 1430, 1700, AND 1900 Bismuth Subsalicylate (Pepto-Bismol) 262 Mg/15 Ml Bety 30 ML PO BID (Reported) Esomeprazole Magnesium Trihydr (Nexium) 20 Mg Cap 20 MG PO BID (Reported) Lacosamide (Vimpat) 100 Mg Tab 100 MG PO BID (Reported) Lactobacillus Acidophilus (Bacid) 1 Tab Tab 1 TAB PO BID (Reported) Levothyroxine Sodium (Synthroid) 75 Mcg Tab 75 MCG PO DAILY (Reported) Mirtazapine (Mirtazapine) 45 Mg Tab 45 MG PO QHS (Reported) Warfarin Sod (Warfarin Sodium) 2.5 Mg Tab 2.5 MG PO ASDIRECTED (Reported) 6xW: QHS Thurs, Fri, Sat, Sun, Mon, Tues. Scheduled PRN (Mucinex Congestion & Coug 2.5-5-100 mg/5Ml) 1 Liq Liq 1 LIQ PO Q6HP PRN PRN CONGESTION Acetaminophen (Tylenol Extra Strength) 500 Mg Tab 500 MG PO Q4H PRN PRN PAIN / FEVER (Reported) Albuterol Sulfate (Albuterol Sulfate) 2.5 Mg/3 Ml Nebu 2.5 MG INH Q6HP PRN PRN SHORTNESS OF BREATH (Reported) Allergies Coded Allergies: Penicillins (Verified Allergy, Severe, ANAPHYLAXIS w/ PCN; HAS TOLERATED ROCEPHIN in the PAST, 05/11/16) Metronidazole (Verified Allergy, Intermediate, HIVES, 05/11/16) Moxifloxacin (Verified Allergy, Intermediate, spastic tremors, 05/11/16) Fluconazole (Verified Allergy, Unknown, 05/11/16) Pineapple (Verified Allergy, Unknown, CANNED ONLY, FRESH IS OK, 05/11/16) Erythromycin (Verified Adverse Reaction, Mild, GASTROINTESTINAL, 05/11/16) Aspirin (Verified Adverse Reaction, Unknown, TOLD TO AVOID DUE TO ASTHMA, 05/11/16) GIANFRANCO ATWOOD MD Jun 12, 2016 14:45
[2016-06-12] MEDS ORDERED: WARFARIN SOD 5 MG TAB PO SCH (17:00)
== END 2016-06-12 14:40 | disposition home health service (06) | DRG 177 ==
LOC: M ED 05-18 02:05 → M ED INP 05-18 02:30 → M MS5PR 05-18 03:44 → M PCU 05-24 02:20 → M MS5PR 05-29 18:48
PROVIDERS: ADMIT Internal Medicine; ATTEND Internal Medicine
PROC: 0DHA3UZ Insertion of Feeding Device into Jejunum, Percutaneous Approach (ICD-10-PCS; principal; 2016-05-23)
DX: J69.0 Pneumonitis due to inhalation of food and vomit (principal); J96.01 Acute respiratory failure with hypoxia; E43 Unspecified severe protein-calorie malnutrition; R53.2 Functional quadriplegia; L03.311 Cellulitis of abdominal wall; I31.3 Pericardial effusion (noninflammatory); N17.9 Acute kidney failure, unspecified; K91.870 Postprocedural hematoma of a digestive system organ or structure following a digestive system procedure; B37.89 Other sites of candidiasis; Z66 Do not resuscitate; K44.9 Diaphragmatic hernia without obstruction or gangrene; E03.9 Hypothyroidism, unspecified; R19.7 Diarrhea, unspecified; G40.909 Epilepsy, unspecified, not intractable, without status epilepticus; F41.9 Anxiety disorder, unspecified; G30.9 Alzheimer's disease, unspecified; F02.80 Dementia in other diseases classified elsewhere, unspecified severity, without behavioral disturbance, psychotic disturbance, mood disturbance, and anxiety; K59.00 Constipation, unspecified; Z86.718 Personal history of other venous thrombosis and embolism; Z86.711 Personal history of pulmonary embolism; Z88.0 Allergy status to penicillin; Z88.6 Allergy status to analgesic agent; Z88.1 Allergy status to other antibiotic agents; Z88.8 Allergy status to other drugs, medicaments and biological substances; Z91.018 Allergy to other foods; Z90.49 Acquired absence of other specified parts of digestive tract; Z99.81 Dependence on supplemental oxygen; Z79.01 Long term (current) use of anticoagulants

== ENCOUNTER → 2016-07-01 | Outpatient (CLI) | payer MEDICARE, MEDICAID ==
[~2016-07-01] MED LIST changes: +ISOVUE-300 61% 50ML VIAL (Q9967) As Ordered ONE; +LIDOCAINE 2% MDV 20 ML VIAL As Ordered ONE; +MUCI1LIQ PO; +NEXI20CA PO
--- NOTE | 2016-07-01 16:13 | REPKIM ---
CLINICAL HISTORY: Patient with significant medical comorbidities, hiatal hernia and multiple episodes of aspiration pneumonia has a 16.5F CAC gastrojejunostomy feeding tube. The retention suture was broken. The GJ tube needs to be changed/upsized for maintenance. PROCEDURE PERFORMED: Gastrojejunostomy Feeding Tube Change/Upsize INTERVENTIONALIST: Pallavi Vaca MD CONSENT: The risks, benefits and alternatives to the procedure were explained to the patients daughter and informed written consent was obtained. MEDICATIONS: Local Lidocaine CONTRAST: 25 mL Isovue 300 EBL: less than 10 mL DEVICE USED: 22F TIFFANIE Gastrojejunostomy Tube Lot#[id number] FLUORO TIME: 1.8 minutes PROCEDURE/FINDINGS: The patient was brought to the interventional radiology suite where a timeout procedure was performed. Contrast injection showed the existing CAC feeding tube is patent in a satisfactory course and position. A guidewire was advanced through the existing 16.5F CAC jejunal port into the small bowel. A new 22- Japanese [TIFFANIE] gastrojejunostomy feeding tube was then advanced over the guidewire. The retention balloon was inflated in the gastric lumen with approximately 8-9 mL dilute contrast/saline and retention disc was snugly secured to the abdominal wall using 2-0 sutures. Contrast was injected into both the gastric and jejunal ports to confirm satisfactory course and position. Post procedure radiograph shows the tip of the feeding tube in the proximal jejunum. The patient tolerated the procedure well with no immediate complications. This procedure was performed using fluoroscopy. Dr. Vaca was present. IMPRESSION: Successful 22F TIFFANIE gastrojejunostomy feeding tube placement as discussed above. Plan: The new GJ feeding tube is ready for use. Flush the jejunal feeding port with 40-50mL water every 6 hours during continuous feeding, before and after every usage, or at least every 8 hours if the tube is not being used. When flushing a tube, use water and a 30cc-60cc plunger syringe. Please give medications via the gastric port and keep head of bed elevated. The gastric port should also be flushed with 30-40mL water before and after administration of medications. The tube should be changed by Interventional Radiology in 6 months as part of preventive maintenance. cc: DO Jamila Mcnamara MD MTDD
== END | disposition home or self-care (01) ==
LOC: M IRPRO 12:26
DX: K94.23 Gastrostomy malfunction (principal)
CPT/HCPCS: 49452; C1729; C1769; C1887; Q9967

== ENCOUNTER 2016-09-13 13:11 | Emergency (ER) | payer MEDICARE, MEDICAID ==
[~2016-09-13] VITALS: Ht 152.4 cm; Wt 50.9 kg
[~2016-09-13 13:11] MED LIST changes: +BACITAB PO; -BACITAB3 PO; +CLIN150C14 PO; -CLIN1CAP5 PO; -COLA100C3 PO; +COLA100C5 PO; -COUM2.5T11 PO; +COUM2.5T17 PO; -ISOVUE-300 61% 50ML VIAL (Q9967) As Ordered ONE; +LEVA1TAB PO; -LEVA250T PO; +LEVO500T3 PO; -LEVO500T32 PO; -LIDOCAINE 2% MDV 20 ML VIAL As Ordered ONE; +MIRT45TA GT; -NYST100024 TOP; +NYST1POW9 TOP; +SYNT75TA GT; -SYNT75TA PO; +TYLE500T78 GT; -TYLE500T78 PO; +VIMP100T GT; -VIMP100T PO; +WARF-18 GT
[2016-09-13] MEDS ORDERED: PREV1CAP PO (13:26)
[2016-09-13] MEDS ORDERED: VITA100072 PO (13:26)
[2016-09-13 14:31] LABS: BASO % 0.3 % (0.0-1.0); EOS # 0.6 K/mm3 (0.0-0.50); LARGE UNSTAINED CELL # 0.2 K/mm3 (0.0-0.4); LARGE UNSTAINED CELL % 1.6 % (0.0-4.0); LYMPH # 1.5 K/mm3 (1.5-4.5); LYMPH % 10.2 % (24.0-44.0); MEAN CORPUSCULAR HEMOGLOBIN 30.8 pg (27.0-33.0); MEAN CORPUSCULAR HGB CONC 33.8 g/dl (32.0-36.5); MEAN CORPUSCULAR VOLUME 91.1 fl (80.0-96.0); MONO # 0.9 K/mm3 (0.0-0.8); MONO % 7.4 % (0.0-5.0); NEUTROPHILS # 9.7 K/mm3 (1.8-7.7); NEUTROPHILS % 75.5 % (36.0-66.0); PLATELET COUNT, AUTOMATED 250 k/mm3 (150-450); RED CELL DISTRIBUTION WIDTH 14.8 % (11.5-14.5); WHITE BLOOD COUNT 12.8 K/mm3 (4.0-10.0)
[2016-09-13 14:38] LABS: INR 3.06
[2016-09-13 15:05] LABS: CALCIUM LEVEL 8.7 MG/DL (8.8-10.2); CREATININE FOR GFR 1.03 MG/DL (0.55-1.02); GLOMERULAR FILTRATION RATE 53.7 (>32); POTASSIUM SERUM 4.6 MEQ/L (3.5-5.1)
[2016-09-13] MEDS ORDERED: hydrOXYzine 10MG/5ML SYRUP GT ONE (15:45)
[2016-09-13] MEDS ORDERED: HYDR10EL GT (18:05)
[2016-09-13 18:34] VITALS: BP 102/55
--- NOTE | 2016-09-14 06:38 | REP ---
CHEST, PORTABLE: AP portable view of the chest is performed and compared to multiple prior exams, most recently 06/08/2016. Cardiomegaly is again noted as well as calcification, tortuosity and ectasia of the thoracic aorta. The mediastinal silhouette is unchanged. There is mild bibasilar fibroatelectasis which appears essentially stable with no definite superimposed acute infiltrate. IMPRESSION: Cardiomegaly and chronic findings. No definite superimposed acute infiltrate. Signed by Bonifacio Heaton MD 09/14/2016 07:22 P
== END 2016-09-13 18:36 | disposition home or self-care (01) ==
LOC: M ED 14:18
DX: F41.9 Anxiety disorder, unspecified (principal); F03.90 Unspecified dementia, unspecified severity, without behavioral disturbance, psychotic disturbance, mood disturbance, and anxiety; R93.1 Abnormal findings on diagnostic imaging of heart and coronary circulation; R56.9 Unspecified convulsions; Z86.718 Personal history of other venous thrombosis and embolism; Z93.1 Gastrostomy status; Z79.01 Long term (current) use of anticoagulants; Z79.899 Other long term (current) drug therapy; Z88.6 Allergy status to analgesic agent; Z88.1 Allergy status to other antibiotic agents; Z88.0 Allergy status to penicillin; Z88.8 Allergy status to other drugs, medicaments and biological substances; Z91.018 Allergy to other foods

== ENCOUNTER 2016-12-10 21:25 | Inpatient (IN) | payer MEDICARE, MEDICAID ==
[~2016-12-10] VITALS: Ht 152.4 cm; Wt 58.4 kg
[~2016-12-10 21:25] MED LIST changes: +HYDR10EL GT; +PREV1CAP PO; +VITA100072 PO
[2016-12-10] MEDS ORDERED: JEVILIQ10 PO (21:38)
[2016-12-10] MEDS ORDERED: NS 1,000 ML IV SCH (22:00)
[2016-12-10] MEDS ORDERED: cefTRIAXone SOD 1 GM in D5W 50 ML IV ONE (22:00)
[2016-12-10] MEDS ORDERED: NS 1,000 ML IV ONE (22:00)
[2016-12-10 22:25] LABS: MEAN CORPUSCULAR HEMOGLOBIN 29.9 pg (27.0-33.0); MEAN CORPUSCULAR HGB CONC 33.4 g/dl (32.0-36.5); MEAN CORPUSCULAR VOLUME 89.3 fl (80.0-96.0); PLATELET COUNT, AUTOMATED 394 10^3/uL (150-450); RED CELL DISTRIBUTION WIDTH 14.2 % (11.5-14.5); WHITE BLOOD COUNT 26.6 10^3/uL (4.0-10.0)
[2016-12-10 22:28] LABS: VENOUS BASE EXCESS 3.3 (-2.0-2.0); VENOUS O2 SATURATION 72.1 % (60.0-80.0); VENOUS PARTIAL PRESSURE CO2 51.4 mmHg (38.0-50.0); VENOUS PARTIAL PRESSURE O2 37.2 mmHg (30.0-50.0); VENOUS STANDARD HCO3 26.7 MEQ/L; VENOUS TOTAL CO2 31.2 MEQ/L (24.0-28.0)
[2016-12-10 22:43] LABS: YEAST LIKE CELL URINE AUTO MODERATE
[2016-12-10 22:44] LABS: ADD MANUAL DIFFER YES; DIFF SLIDE NUMBER 352; POSITIVE DIFF POS FLAG
[2016-12-10 22:47] LABS: EOSINOPHILS 1 % (0-5)
[2016-12-10 23:03] LABS: ALKALINE PHOSPHATASE 119 U/L (45-117); ALT/SGPT 29 U/L (12-78); AST/SGOT 17 U/L (15-37); BILIRUBIN,DIRECT 0.1 MG/DL (0.0-0.2); BILIRUBIN,TOTAL 0.4 MG/DL (0.2-1.0); BLOOD UREA NITROGEN 25 MG/DL (7-18); CALCIUM LEVEL 8.8 MG/DL (8.8-10.2); CHLORIDE LEVEL 91 MEQ/L (98-107); CREATININE FOR GFR 0.96 MG/DL (0.55-1.02); GLUCOSE, FASTING 128 MG/DL (83-110); POTASSIUM SERUM 4.6 MEQ/L (3.5-5.1); SODIUM LEVEL 129 MEQ/L (136-145)
[2016-12-10] MEDS ORDERED: ALPR0.5T3 GT (23:55)
[2016-12-10] MEDS ORDERED: HYDR10EL GT (23:55)
[2016-12-11] MEDS ORDERED: CYAN1000VL IM (00:06)
[2016-12-11] MEDS ORDERED: NYST1POW9 TOP (00:06)
[2016-12-11] MEDS ORDERED: SODI0.9N3 INH (00:06)
[2016-12-11] MEDS ORDERED: PREV30TA3 GT (00:06)
[2016-12-11] MEDS ORDERED: MILKSUS GT (00:06)
[2016-12-11] MEDS ORDERED: SENN8.6T7 GT (00:06)
[2016-12-11] MEDS ORDERED: JEVILIQ10 GT (00:06)
[2016-12-11] MEDS ORDERED: FERR15DR2 GT (00:06)
[2016-12-11] MEDS ORDERED: SODIUM CHLORIDE 0.9% 3ML NEB SOLUTION FOR INHALATION INH PRN (00:30)
[2016-12-11] MEDS ORDERED: hydrOXYzine 10MG/5ML SYRUP GT PRN (00:30)
[2016-12-11] MEDS ORDERED: cefTRIAXone SOD 2 GM in D5W 50 ML IV SCH (00:30)
[2016-12-11] MEDS ORDERED: ACETAMINOPHEN 325 MG/10.15 ML UDC GT PRN (00:30)
[2016-12-11] MEDS ORDERED: SENOKOT S TAB GT PRN (00:30)
[2016-12-11] MEDS ORDERED: ACETAMINOPHEN 650 MG SUPP PR PRN (01:15)
[2016-12-11] MEDS ORDERED: ONDANSETRON 4MG/2ML VIAL (J2405) IV PRN (01:15)
[2016-12-11 01:18] LABS: ALBUMIN 3.3 GM/DL (3.2-5.2); ALBUMIN/GLOBULIN RATIO 0.89 (1.00-1.93); ANION GAP 9 MEQ/L (8-16); CARBON DIOXIDE LEVEL 29 MEQ/L (21-32)
[2016-12-11 01:27] LABS: INR 3.68
[2016-12-11 01:30] LABS: MAGNESIUM LEVEL 2.1 MG/DL (1.8-2.4)
[2016-12-11] MEDS ORDERED: NS 1,000 ML IV SCH (01:45)
--- NOTE | 2016-12-11 02:00 | REPUSA ---
CLINICAL HISTORY: Suspected pneumonia. TECHNIQUE: Multiple axial CT images were obtained through the thorax without IV contrast material. COMMENTS: Increase in the size of pneumonic consolidation in the right lower lobe. Increased groundglass densities in the right lower lobe. Interval appearance of groundglass densities in the right upper lobe. Increased groundglass densities in the left lower lobe. Increased bilateral basilar atelectatic airspace disease. Small lung volumes with significant increased dorsal kyphosis secondary to osteopenia and multiple th oracic spine compression deformities. Unchanged moderate cardiomegaly. Enlargement pulmonary arteries suggestive of pulmonary hypertension. Moderate sliding hiatal hernia. Small pericardial effusion. There is no evidence of pleural or parenchymal-based mass. There are no pleural effusions. Mildly prominent mediastinal and hilar lymph nodes, unchanged, probably reactive. Unchanged moderate cardiac megaly. The visualized portions of the liver are of uniform attenuation without mass or defect. There is no i ntra or extrahepatic biliary ductal dilatation. The spleen is unremarkable. The visualized pancreas i s of normal contour and attenuation characteristics. There is no evidence of adrenal mass. The visual ized portions of the kidneys present no abnormalities. IMPRESSION: Increased bilateral lower lobes and right upper lobe ground glass density/airspace disease suggestive of multifocal pneumonia. Thank you for your kind referral of this patient.
--- NOTE | 2016-12-11 03:33 | HPE ---
DATE OF ADMISSION: 12/11/2016 TIME: Patient was seen around 0000 PRIMARY CARE PROVIDER: Dr. Calderon. CHIEF COMPLAINT: Fever at home with slightly increased shortness of breath and increased secretions. Patient's daughter also stated that patient has increased urination. HISTORY OF PRESENT ILLNESS: 89-year-old female with a past medical history of severe Alzheimer's dementia and nonverbal for most of the time, history of asthma, seizure, deep venous thrombosis (DVT) on Coumadin, stroke, hypothyroidism, hypoxia at night on 2 liters of oxygen, history of aspiration pneumonia, history of back surgery, Clostridium (C) difficile, gastroesophageal reflux disease (GERD), hiatal hernia, anxiety, urinary and stool incontinence and urinary retention, also recurrent urinary tract infection (UTI), presented to the emergency department (ED) due to patient had a fever at home of 101.6. Per patient's daughter, this happened tonight and the patient took a Tylenol by mouth and the fever had subsided by the time she came to the emergency room. In addition, per patient's daughter, she also has slightly increased shortness of breath and increased urination. In addition, she has been having increased secretions, required suctioning about once every hour at home. She also has increased anxiety for the past 2 days. Per patient's daughter, the secretion that was suctioned out was clear. Otherwise, per patient's daughter, patient did not complain of any chest pain, any abdominal pain, any discomfort anywhere else. She does have a rash on her abdomen; however, patient's daughter told admitting resident that it was contact dermatitis from adult diaper. In addition, patient has been having some constipation lately after her Jevity got reduced from four cans to three cans a day. While patient was on four cans a day, she was having loose stools and she also had some weight gain as a result from the four cans of Jevity. ALLERGIES: Patient is allergic to ASPIRIN, ERYTHROMYCIN, FLUCONAZOLE, METRONIDAZOLE, MOXIFLOXACIN, PENICILLIN, and PINEAPPLE. HOME MEDICATIONS: Including: - Tylenol 500 mg through the GJ tube every 4 hours as needed - albuterol 2.5 mg inhalation every 6 hours as needed - alprazolam 0.25 mg at 9 a.m. and 0.25 mg at 11, 0.25 mg at 1 p.m., and 0.25 mg at 4 p.m., 0.25 mg at 6 p.m., and 0.25 mg at 8:30 p.m. - cyanocobalamin 1000 mcg intramuscularly every month - Colace with senna one tablet by mouth twice a day as needed - ferrous sulfate 75 mg through GJ tube every Thursday morning - hydroxyzine 10 mg through GJ tube four times a day as needed - Jevity 1.5 calorie three cans daily at a rate of 50 mL/h - Vimpat 100 mg through GJ tube twice a day - lansoprazole 30 mg through GJ tube twice a day - Synthroid 75 mcg GJ tube daily - milk of magnesia 50 mL GJ tube daily as needed - mirtazapine 45 mg GJ tube nightly - nystatin powder topically twice a day - sodium chloride 2 mL inhalation four times a day as needed - warfarin 2.5 mg through GJ tube every evening PAST MEDICAL HISTORY: 1. Severe Alzheimer's dementia, nonverbal most of the time. 2. History of asthma. 3. History of seizure. 4. DVT. 5. CVA. 6. Hypothyroidism. 7. Hypoxia, especially at night and uses 2 liters of oxygen at night. 8. History of aspiration pneumonia. 9. History of back pain. 10. History of C. difficile. 11. GERD. 12. Hiatal hernia. 13. Anxiety. 14. UTI recurrent. 15. Urinary and stool incontinence. PAST SURGICAL HISTORY: Includin. Back surgery. 2. Cholecystectomy. SOCIAL HISTORY: Patient lives at home with her daughter, who is a nurse. Patient does not drink, smoke or use any recreational drugs and she is mostly bed bound and was mostly nonverbal. FAMILY HISTORY: Noncontributory. REVIEW OF SYSTEMS: Could not be obtained due to patient is nonverbal. Per patient's daughter, patient does have a fever at night and does have increased secretions over the past 2 days and has been having increased anxiety as well. Otherwise, also has slightly increased shortness of breath and increased urinary frequency compared to normal days. PHYSICAL EXAMINATION: VITAL SIGNS: Temperature 98.9, pulse 122, respirations 21, blood pressure 159/93, oxygen was saturating at 91% on room air. At the time of the examination, patient was saturating 96% on 3 liters of nasal cannula. GENERAL: Patient is an obese elderly female who was nonverbal and does not follow any commands; however, she was breathing spontaneously and does seem to communicate with patient's daughter nonverbally to a mild degree. HEENT: Normocephalic, atraumatic. Extraocular motor could not be assessed due to noncommunicative and does not follow commands. Pupils were equal, round and reactive to light. Mucosa membranes moist. NECK: Supple. No neck lymphadenopathy. CARDIOVASCULAR: Distant heart sounds due to increased AP diameter, otherwise normal S1, S2, regular rate, rhythm. LUNGS: Reduced breathing sounds bilaterally with slight rhonchi bilaterally. ABDOMEN: Positive bowel sounds, soft, nontender, nondistended. No peritoneal signs. EXTREMITIES: No edema, clubbing, or cyanosis. However, extremities appear to be contracted. SKIN: Warm and dry. NEUROLOGIC: Cranial nerves could not be assessed due to patient was noncommunicative, nonverbal. LABORATORIES: WBC 26.6 elevated, hemoglobin 14, hematocrit 41.0 with platelet count of 394, MCV 89.3. Sodium 129, potassium 4.6, chloride 91, bicarbonate 29, BUN 25, creatinine 0.96, fasting glucose 128, lactic acid 2.9, calcium 8.8, total bilirubin 0.4, direct bilirubin 0.1, AST 17, ALT 29, alkaline phosphatase 119, total CK 36, CK-MB 1.1, troponin less than 0.02, total protein 7, albumin 3.3, TSH 7.1. VBG shows pH of 7.378, pO2 51.4, pO2 37.2, oxygen was saturating at 72.1%. Again this is VBG with a base excess of 3.3. Urinalysis shows cloudy in appearance, 1+ protein, 2+ blood, 3+ leukocyte esterase, WBC was too many to count, RBC was 53, 1+ bacteria, moderate size yeast like cells. Urine culture is currently pending. Blood culture times two are pending. Patient had a CT chest without contrast in the emergency room. Official result is pending. I examined the film myself and the patient does appear to have some infiltrate versus atelectasis at the right lower base of the lung. Will followup with official result. Patient did also have a portable chest x-ray prior to the CT. It appears to be rotated; however, does not have apparent infiltrate or effusion. ASSESSMENT AND PLAN: 89-year-old female with a past medical history of severe Alzheimer's dementia and nonverbal most of the time, currently bed bound, does have recurrent aspiration and has been placed on GJ tube, history of asthma, deep venous thrombosis (DVT), seizure, CVA, hypothyroidism, back surgery, history of Clostridium (C) difficile treated earlier this year, hiatal hernia and gastroesophageal reflux disease (GERD), anxiety, recurrent urinary tract infection (UTI), urinary and stool incontinence, presented with: 1. Slightly increased shortness of breath and increased urination with a fever, also leukocytosis of 26.6 thousand. At this point, will treat patient with possible pyelonephritis with Rocephin 2 grams every 24 hours. Patient did have one dose of Rocephin in the emergency room. There is also suspicion for possible aspiration pneumonitis versus pneumonia. CT has been ordered. The official result is pending. Reviewing film it does seem that patient has some patchiness in the right lower lung base. At this point, will order sputum culture. Will place the patient on aspiration precautions. Will check for influenza and Legionella as well and continue pulse oximetry and continue nasal cannula oxygen at night and continue to trend patient's complete blood count (CBC) and followup with blood culture. Patient's venous blood gas (VBG) does not show any respiratory acidosis; however, will continue to monitor. 2. Possible aspiration pneumonia versus pneumonitis. Patient has been placed on Rocephin for possible pyelonephritis. Will continue. Will switch patient to coverage for aspiration pneumonia depending on official result from the CT. However, per patient's daughter, the shortness of breath was not much worse compared to baseline. 3. Possible pyelonephritis with positive urinalysis. Continue Rocephin 2 grams every 24 hours and continue to followup with blood culture and daily CBC. 4. Chronic constipation that has worsened. Continue home regimen with milk of magnesia and Colace with senna through the GJ tube. Continue to monitor. 5. Hyponatremia. Sodium level is 129. Possibly related to pneumonia. Will followup with Legionella study and sputum culture, as well as influenza study. Possibly from feeding issues from tube feeds. Continue to monitor. 6. Slightly hyperglycemic without history of diabetes. Possibly related to infection versus inflammation. Continue to monitor. 7. Lactic acidosis with lactic acid of 2.9. Possibly related with underlying infection. Continue to trend. Reviewing history, patient does have elevated lactic acid multiple times over the past 2 years. Will continue to monitor. 8. History of asthma. Continue home nebulizer. 9. History of seizure. Continue seizure precautions and home medication. 10. Coagulation panel has come back showing an international normalized ratio (INR) of 3.68. Patient is supratherapeutic. Therefore, will hold warfarin for now and will restart once the patient is in the therapeutic range. 11. Hypothyroidism. Continue home Synthroid. Thyroid-stimulating hormone (TSH) is within normal limits. 12. Chronic hypoxic respiratory failure and uses 2 liters of oxygen at night. Continue nasal cannula at night. 13. History of back surgery. Continue to monitor. Continue home medication. 14. History of Alzheimer's dementia and nonverbal, which complicates the care and patient is also bed bound. Will reposition her frequently to prevent bed ulcers. 15. History of Clostridium (C) difficile. Currently patient does not have diarrhea. Continue to monitor. 16. History of GERD. Continue home proton pump inhibitor (PPI). 17. History of anxiety. Continue home Ativan. 18. History of urinary retention. Will continue bladder scan. 19. Deep venous thrombosis (DVT) prophylaxis with home warfarin. Currently patient is supratherapeutic. Will restart warfarin when patient is within the range. 20. Fluid, electrolytes and diet. Patient is currently on normal saline started in the emergency room. Will reduce it to 50 mL/h. Patient is currently nothing by mouth due to recurrent aspiration; however, will continue tube feeds through the GJ tube and patient may have medication through GJ tube as well and continue patient at a rate of 50 mL/h. She may have three cans of 1.5 Jevity per day with 6 ounces of water. DISPOSITION: Patient came in primarily due to the fever and per patient's daughter, she also has slightly increased shortness of breath and increased urinary frequency. Will continue antibiotic for now. Will investigate causes for the fever. Possibly related to aspiration pneumonitis versus aspiration pneumonia. Will change antibiotic appropriately if confirmed with CT. Otherwise, will continue patient's home medications and continue to monitor. Currently, patient's daughter would like patient to be FULL CODE. We had an extensive discussion with patient's daughter and she was adamant about keeping her mother as a FULL CODE. However, she is willing to reassess her code status if her condition becomes more critical and she has been informed that patient's condition already has a poor prognosis given her medical history and current infection. Patient has been discussed with attending doctor, Dr. Barnes. My preceptor for this patient encounter was Dr. Carlos Barnes. The preceptor was physically present in the building during the encounter and was fully available as needed. All aspects of the patient interview, examination, medical decision making process, and medical care plan development were reviewed and approved by the preceptor. The preceptor is aware and concurs with the plan as stated in the body of this note and will attest to such by his/her co-signature.
[2016-12-11 04:00] VITALS: BP 138/63
[2016-12-11] MEDS: LEVOTHYROXINE 75MCG TABLET (0.075MG) GT SCH (06:00)
[2016-12-11 06:10] LABS: MEAN CORPUSCULAR HEMOGLOBIN 30.4 pg (27.0-33.0); MEAN CORPUSCULAR HGB CONC 33.3 g/dl (32.0-36.5); MEAN CORPUSCULAR VOLUME 91.3 fl (80.0-96.0); PLATELET COUNT, AUTOMATED 309 10^3/uL (150-450); RED CELL DISTRIBUTION WIDTH 14.2 % (11.5-14.5); WHITE BLOOD COUNT 24.6 10^3/uL (4.0-10.0)
[2016-12-11 06:23] LABS: POSITIVE DIFF POS FLAG
[2016-12-11 06:24] LABS: ADD MANUAL DIFFER YES; DIFF SLIDE NUMBER 116
[2016-12-11 06:27] LABS: ANION GAP 7 MEQ/L (8-16); BLOOD UREA NITROGEN 23 MG/DL (7-18); CALCIUM LEVEL 8.2 MG/DL (8.8-10.2); CARBON DIOXIDE LEVEL 26 MEQ/L (21-32); CHLORIDE LEVEL 99 MEQ/L (98-107); CREATININE FOR GFR 0.79 MG/DL (0.55-1.02); GLOMERULAR FILTRATION RATE > 60.0 (>32); GLUCOSE, FASTING 96 MG/DL (83-110); POTASSIUM SERUM 4.5 MEQ/L (3.5-5.1); SODIUM LEVEL 132 MEQ/L (136-145)
[2016-12-11 06:56] LABS: EOSINOPHILS 2 % (0-5); TOXIC VACUOLATION 1+
--- NOTE | 2016-12-11 07:11 | ECGEPIP ---
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
[2016-12-11 07:30] VITALS: BP 115/53
[2016-12-11 08:10] LABS: INR 4.76
--- NOTE | 2016-12-11 08:40 | REP ---
Portable chest, 10:31 p.m., single AP view, the patient semi upright: Comparison is 09/13/2016. The the patient is significantly rotated obscuring almost the entire right lung. Cardiac silhouette extends into the right costophrenic angle obscuring visualization of this area. The visualized left lung is clear. Positioning accentuates cardiac size, there was cardiomegaly previously. Cardiac size cannot be determined on the current study. Vertebroplasties are incidentally noted as previously. Impression: Suboptimal study. Patient rotated. Recommend repeat study. Signed by Bonifacio Lara MD 12/11/2016 08:31 A
[2016-12-11] MEDS: MEROPENEM INJ 1 GM in D5W MINI-BAG PLUS 100 ML IV SCH ×2 (10:40→16:26)
[2016-12-11] MEDS: NYSTATIN 100,000 UNITS/GM TOPICAL PWD 15 GM TOP SCH ×2 (10:40→21:22)
[2016-12-11] MEDS: ALPRAZolam 0.25 MG TAB GT SCH ×7 (10:40→21:21)
[2016-12-11] MEDS: LANSOPRAZOLE SUSPENSION 30 MG/10 ML ORAL SYRINGE (FIRST-LANSOPRAZOLE) GT SCH ×2 (10:41→21:21)
[2016-12-11] MEDS: LACOSAMIDE 50 MG TAB (VIMPAT) GT SCH ×2 (10:41→21:21)
[2016-12-11 16:00] VITALS: BP 133/61
[2016-12-11] MEDS ORDERED: WARFARIN SOD 2.5 MG TAB GT SCH (17:00)
[2016-12-11] MEDS: ALBUTEROL SULFATE 2.5 MG/0.5 ML INH NEB SOLN INH PRN (17:48)
[2016-12-11] MEDS: cefTRIAXone SOD 2 GM in D5W 50 ML IV SCH (21:20)
[2016-12-11] MEDS: MIRTAZAPINE 15 MG TAB GT SCH (21:21)
[2016-12-11 22:00] VITALS: BP 156/68
--- NOTE | 2016-12-11 23:22 | IPN ---
DATE: 12/11/2016 The patient seen and examined. No acute events overnight. The patient nonverbal. No further history possible. VITAL SIGNS: Temperature 97.6, pulse 85, respirations 20, blood pressure 115/53, pulse oximetry 98% on 1 liter nasal cannula. LABORATORY: WBC 24.6, hemoglobin and hematocrit 11.2/33.6. Platelets 309. Chemistry: Sodium 132, potassium 4.5, chloride 99, bicarbonate 26, BUN 23, creatinine 0.79. Lactic acid repeat 1.2. PHYSICAL EXAMINATION: GENERAL: Nonverbal. Baseline severely demented with mild tachypneic. Seems to be mildly dyspneic. HEENT: Normocephalic, atraumatic. PULMONARY: Reduced breath sounds bilateral. Bilateral rhonchi. ABDOMEN: Soft, PEG tube in place. Nontender. Positive bowel sounds. EXTREMITIES: No edema bilateral lower extremities. ASSESSMENT AND PLAN: This is an 89-year-old female patient with underlying medical history of severe Alzheimer's dementia, nonverbal most times, currently bed-bound. Does have recurrent aspiration. Has a JG tube. History of asthma, deep venous thrombosis (DVT), seizures, cerebrovascular accident (CVA), hypothyroidism, back surgery. History of Clostridium (C.) difficile treated earlier this year, hiatal hernia and gastroesophageal reflux disease (GERD), anxiety, recurrent urinary tract infection (UTI), and stool incontinence presented with shortness of breath, increased urination with fevers. PROBLEMS: 1. Leukocytosis with fevers. 2. Sepsis likely secondary to multifocal pneumonia. The patient currently on meropenem. Followup CT scan of the chest appreciated. Followup respiratory panel and cultures. Lactic acidosis has resolved. Weaning of FiO2. IV fluids initially given. Will stop IV fluids to avoid fluid overload. 3. Aspiration pneumonia. CT scan is appreciated. Continue meropenem. Followup WBC. Followup of cultures. 4. Positive urinalysis (UA). Possible pyelo. Continue meropenem. Followup CBC. Followup cultures. 5. Chronic constipation. Continue bowel regimen as ordered via JG tube. 6. Hyponatremia, resolved. 7. Hyperglycemia with history of diabetes. Will continue to monitor. The patient was previously diet controlled. Possibly elevated secondary to active infection. Repeat seems to be better. 8. Lactic acidosis secondary to underlying infection, resolved. 9. History of asthma. Continue nebulizer treatment. 10. History of seizure. Continue seizure precautions. Continue home medications. 11. History of deep venous thrombosis (DVT) with supratherapeutic INR. Holding Coumadin. Followup INR. Restart as needed. 12. Hypothyroidism. TSH was within normal limits. Continue Synthroid. 13. Chronic hypoxic respiratory failure. Uses 2 liter oxygen at night. Continue O2 supplementation. 14. History of back surgery. Supportive care. 15. History of Alzheimer's dementia. Baseline, nonverbal. Bed-bound with JG tube. Supportive care. 16. History of C. Difficile. Continue to monitor. 17. Gastroesophageal reflux disease. Continue proton pump inhibitor (PPI). 18. Has anxiety. Continue current medication. 19. Urinary retention. Bladder scan. 20. DVT prophylaxis. The patient on Coumadin with supratherapeutic INR. DISPOSITION: Patient with multiple comorbidities. Poor overall prognosis. High risk for readmission. Will continue antibiotics and follow cultures. Remains FULL CODE.
[2016-12-12] MEDS: MEROPENEM INJ 1 GM in D5W MINI-BAG PLUS 100 ML IV SCH ×3 (01:49→17:49)
[2016-12-12 06:00] VITALS: BP 125/66
[2016-12-12 06:37] LABS: BASO # 0.1 10^3/uL (0.0-0.2); BASO % 0.5 % (0.0-1.0); EOS % 9.2 % (0.0-3.0); IMMATURE GRANULOCYTE % 0.6 % (0-0); LYMPH # 0.8 10^3/uL (1.5-4.5); LYMPH % 7.3 % (24.0-44.0); MEAN CORPUSCULAR HEMOGLOBIN 30.5 pg (27.0-33.0); MEAN CORPUSCULAR HGB CONC 33.4 g/dl (32.0-36.5); MEAN CORPUSCULAR VOLUME 91.2 fl (80.0-96.0); MONO # 1.2 10^3/uL (0.0-0.8); MONO % 10.8 % (0.0-5.0); NEUTROPHILS # 7.9 10^3/uL (1.8-7.7); NEUTROPHILS % 71.6 % (36.0-66.0); PLATELET COUNT, AUTOMATED 298 10^3/uL (150-450); RED CELL DISTRIBUTION WIDTH 14.8 % (11.5-14.5)
[2016-12-12 06:51] LABS: INR 3.66
[2016-12-12 06:59] LABS: ANION GAP 6 MEQ/L (8-16); BLOOD UREA NITROGEN 28 MG/DL (7-18); CALCIUM LEVEL 8.6 MG/DL (8.8-10.2); CARBON DIOXIDE LEVEL 29 MEQ/L (21-32); CHLORIDE LEVEL 104 MEQ/L (98-107); CREATININE FOR GFR 0.87 MG/DL (0.55-1.02); GLOMERULAR FILTRATION RATE > 60.0 (>32); GLUCOSE, FASTING 120 MG/DL (83-110); POTASSIUM SERUM 4.5 MEQ/L (3.5-5.1); SODIUM LEVEL 139 MEQ/L (136-145)
[2016-12-12] MEDS: LEVOTHYROXINE 75MCG TABLET (0.075MG) GT SCH (07:04)
[2016-12-12] MEDS: LANSOPRAZOLE SUSPENSION 30 MG/10 ML ORAL SYRINGE (FIRST-LANSOPRAZOLE) GT SCH ×2 (09:21→20:03)
[2016-12-12] MEDS: ALPRAZolam 0.25 MG TAB GT SCH ×5 (09:22→20:03)
[2016-12-12] MEDS: LACOSAMIDE 50 MG TAB (VIMPAT) GT SCH ×2 (09:22→20:03)
[2016-12-12] MEDS: NYSTATIN 100,000 UNITS/GM TOPICAL PWD 15 GM TOP SCH ×2 (09:23→20:04)
[2016-12-12] MEDS: ALBUTEROL SULFATE 2.5 MG/0.5 ML INH NEB SOLN INH PRN ×3 (09:46→22:21)
--- NOTE | 2016-12-12 13:57 | IPN ---
DATE OF SERVICE: 12/12/2016 Patient seen and examined. No acute events overnight. Patient baseline nonverbal. Unable to take further history. Vital signs: Temperature 96.3, pulse 88, respiration 18, blood pressure 125/66, pulse ox 92% on 2 liter nasal cannula. LABORATORY: WBC 11, hemoglobin and hematocrit 10.7/32, platelets 298. Chemistry: Sodium 137, potassium 4.5, chloride 104, bicarbonate 29, BUN 28, creatinine 0.87. PHYSICAL EXAMINATION: General: Patient nonverbal baseline, severely demented. In no acute distress. HEENT: Normocephalic, atraumatic. Pulmonary: Reduced breath sounds bilateral. Bilateral rhonchi. Abdomen: Soft. PEG tube in place. Nontender. Positive bowel sounds. Extremities: No edema bilateral lower extremities. Cardiac: Regular rate and rhythm. Normal S1, S2. ASSESSMENT AND PLAN: This is an 89-year-old female patient with underlying medical history of severe Alzheimer's dementia, nonverbal most of the time, currently bed bound with recurrent aspiration pneumonia with J/G tube in place, history of asthma, deep venous thrombosis (DVT), seizure disorder, cerebrovascular accident (CVA), hypothyroidism, back surgery, Clostridium difficile treated earlier this year, hiatal hernia, gastroesophageal reflux disease (GERD), anxiety, recurrent urinary tract infection (UTI) and stool incontinence presented with shortness of breath, increased urination and fever. PROBLEMS: 1. Leukocytosis with fever, sepsis secondary to multifocal pneumonia. Patient current on meropenem. CT chest appreciated. Respiratory panel appreciated. Urinalysis (UA) has been negative. Followup blood cultures, respiratory panel. Lactic acidosis resolved. Leukocytosis improved, weanFiO2. IV fluids initially provided. 2. Aspiration pneumonia. CT scan appreciated. As per family, patient has been having reflux when patient is anxious. Continue meropenem. Followup WBC. Followup cultures. 3. Positive urinalysis. Urine culture has been negative. Patient is on meropenem. Followup CBC and cultures. 4. Chronic constipation. Bowel regimen is ordered. G/J tube and feeding. 5. Hyponatremia, resolved. 6. Hyperglycemia, history of diabetes, diet controlled. Continue to monitor. 6. Lactic acidosis resolved. 7. History of asthma, continue nebulizer treatment. 8. History of seizure. Seizure precaution. Continue home medication. 9. History of deep venous thrombosis (DVT) with supratherapeutic INR. Holding Coumadin today. Will consider restarting tomorrow. 10. Hypothyroidism. TSH was within normal limits. Continue Synthroid. 11. Chronic hypoxic respiratory failure. Patient uses 2 liter oxygen at home. Continue oxygen supplementation. 12. History of back surgery. Supportive care. 13. Severe Alzheimer's dementia. Currently at baseline. Bed bound with G/J tube. Supportive care. 14. History of Clostridium difficile, continue to monitor. 15. Gastroesophageal reflux disease (GERD). Continue PPI. 16. History of anxiety. Continue home medication. 17. Urinary retention. Bladder scan. Deep venous thrombosis (DVT) prophylaxis. Patient on Coumadin with supratherapeutic INR. DISPOSITION: Patient with multiple comorbidities for overall prognosis, high risk of readmission. Followup cultures. Continue antibiotics. Remains FULL CODE. MTDD
[2016-12-12 14:00] VITALS: BP 110/56
[2016-12-12] MEDS: MIRTAZAPINE 15 MG TAB GT SCH (20:03)
[2016-12-12] MEDS: cefTRIAXone SOD 2 GM in D5W 50 ML IV SCH (20:04)
[2016-12-12 22:00] VITALS: BP 109/62
[2016-12-13] MEDS: MEROPENEM INJ 1 GM in D5W MINI-BAG PLUS 100 ML IV SCH ×3 (01:36→17:00)
[2016-12-13] MEDS: MOM 30ML SUSPENSION UDC GT PRN (03:18)
[2016-12-13] MEDS: LEVOTHYROXINE 75MCG TABLET (0.075MG) GT SCH (05:59)
[2016-12-13 06:00] VITALS: BP 117/56
[2016-12-13 06:43] LABS: BASO # 0.1 10^3/uL (0.0-0.2); BASO % 0.5 % (0.0-1.0); EOS # 1.1 10^3/uL (0.0-0.50); EOS % 10.7 % (0.0-3.0); IMMATURE GRANULOCYTE % 0.9 % (0-0); LYMPH # 0.8 10^3/uL (1.5-4.5); LYMPH % 7.3 % (24.0-44.0); MEAN CORPUSCULAR HEMOGLOBIN 30.3 pg (27.0-33.0); MEAN CORPUSCULAR HGB CONC 32.8 g/dl (32.0-36.5); MEAN CORPUSCULAR VOLUME 92.4 fl (80.0-96.0); MONO # 1.1 10^3/uL (0.0-0.8); MONO % 10.8 % (0.0-5.0); NEUTROPHILS # 7.4 10^3/uL (1.8-7.7); NEUTROPHILS % 69.8 % (36.0-66.0); PLATELET COUNT, AUTOMATED 317 10^3/uL (150-450); RED CELL DISTRIBUTION WIDTH 15.2 % (11.5-14.5); WHITE BLOOD COUNT 10.5 10^3/uL (4.0-10.0)
[2016-12-13 07:00] LABS: ANION GAP 4 MEQ/L (8-16); BLOOD UREA NITROGEN 30 MG/DL (7-18); CALCIUM LEVEL 8.6 MG/DL (8.8-10.2); CARBON DIOXIDE LEVEL 33 MEQ/L (21-32); CHLORIDE LEVEL 102 MEQ/L (98-107); GLOMERULAR FILTRATION RATE > 60.0 (>32); GLUCOSE, FASTING 123 MG/DL (83-110); POTASSIUM SERUM 4.4 MEQ/L (3.5-5.1); SODIUM LEVEL 139 MEQ/L (136-145)
[2016-12-13 07:08] LABS: INR 2.45
[2016-12-13] MEDS: NYSTATIN 100,000 UNITS/GM TOPICAL PWD 15 GM TOP SCH ×2 (09:00→20:18)
[2016-12-13] MEDS: LACOSAMIDE 50 MG TAB (VIMPAT) GT SCH ×2 (10:04→20:16)
[2016-12-13] MEDS: ALPRAZolam 0.25 MG TAB GT SCH ×6 (10:04→20:15)
[2016-12-13] MEDS: LANSOPRAZOLE SUSPENSION 30 MG/10 ML ORAL SYRINGE (FIRST-LANSOPRAZOLE) GT SCH ×2 (10:04→20:15)
[2016-12-13 14:00] VITALS: BP 128/61
--- NOTE | 2016-12-13 14:42 | IPN ---
DATE: 12/13/2016 Patient baseline nonverbal, bed bound, severely demented, unable to give any further history. No acute events overnight. During the day today, reported by nursing staff that the patient's GJ tube has been clotted and was flushing. The patient's gastric tube port is currently working, but the jejunostomy tube is not yet working.Afebrile overnight. VITAL SIGNS: Temperature 98.7, pulse 76, respirations 20, blood pressure 117/56, pulse oximetry 96% on 2 liters nasal cannula. LABORATORY DATA: WBC 10.5, hemoglobin and hematocrit 10.3 over 31.4, platelets 317. Chemistry: Sodium 139, potassium 4.4, chloride 102, bicarbonate 33, BUN 30, creatinine 0.9. PHYSICAL EXAMINATION: GENERAL: Patient nonverbal at baseline, severely demented, no acute distress. HEENT: Normocephalic, atraumatic. PULMONARY: Reduced breath sounds bilaterally. No wheeze, rales or rhonchi. ABDOMEN: Soft, GJ tube in place. Nontender. Positive bowel sounds. EXTREMITIES: No edema bilateral lower extremities. CARDIAC: Regular rate and rhythm. Normal S1, S2. ASSESSMENT AND PLAN: This is an 89-year-old female patient with underlying medical history of severe Alzheimer's dementia, nonverbal, for most of the time, currently bed bound with recurrent aspiration pneumonia with a GJ tube in place, history of asthma, deep vein thrombosis (DVT) seizure disorder, cerebrovascular accident (CVA), hypothyroidism, back surgery, Clostridium difficile treated earlier this year, hiatal hernia, gastroesophageal reflux disease (GERD), anxiety, recurrent urinary tract infection (UTI), stool incontinence, presented with shortness of breath and increased urination and fever. Problems: 1. Leukocytosis with fever, sepsis. Secondary to multifocal pneumonia. Patient currently on meropenem. CT scan appreciated. Respiratory panel appreciated. Urine culture has been negative. Lactic acidosis resolved as well as leukocytosis. Wean FiO2. Continue antibiotics. Patient currently is at day #3 of meropenem. 2. Aspiration pneumonia. CT scan appreciated. As per family, patient has been having reflux when patient is anxious. Continue meropenem. Followup WBC, followup cultures. 3. GJ tube clotting. Will continue to flush the GJ tube with water and cranberry juice to see if it will become functional. Currently the gastric port is functional. If patient's jejunostomy tube does not function, will feed the patient at half the rate via gastric port until interventional radiologist can replace the tube. Will increase free water flushes to every 6 hours, 180 mL, and dilute Jevity to half strength. Continue to follow. 4. Positive urinalysis (UA). Urine culture has been negative. Patient on meropenem. 5. Chronic constipation. Bowel regimen as prescribed. Continue feeding. 6. Hyponatremia. Currently resolved. 7. Hyperglycemia. Likely reactive. Currently diet controlled. 8. Lactic acidosis, resolved. 9. History of asthma. Continue nebulizer treatment. 10. History of seizures. Seizure precautions. Continue home medications. 11. History of deep vein thrombosis (DVT). Followup international normalized ratio (INR). Continue Coumadin. 12. Hypothyroidism. Thyroid-stimulating hormone (TSH) appreciated. Continue Synthroid. 13. Chronic hypoxic respiratory failure. The patient uses two liters of oxygen at home. Continue oxygen supplementation. 14. History of back surgery. Supportive care. 15. Severe Alzheimer's dementia. Currently at baseline. Bed bound with GJ tube feeding. Nutrition consulted to make sure the rate and amount of calories is appropriate for the patient. 16. History of Clostridium difficile. Close monitoring. 17. Gastroesophageal reflux disease (GERD). Continue proton pump inhibitor (PPI) . 18. History of anxiety. Continue home medications. 19. Urinary retention. Bladder scan. 20. Deep vein thrombosis (DVT) Prophylaxis. Patient on Coumadin with therapeutic international normalized ratio (INR). DISPOSITION: Patient with multiple comorbidities, poor overall prognosis, high risk of readmission. Remains FULL CODE. Continue antibiotics. Likely discharge over the next few days. [facility]
[2016-12-13] MEDS: WARFARIN SOD 2.5 MG TAB GT SCH (15:49)
[2016-12-13] MEDS: ALBUTEROL SULFATE 2.5 MG/0.5 ML INH NEB SOLN INH PRN (18:17)
[2016-12-13] MEDS: MIRTAZAPINE 15 MG TAB GT SCH (20:16)
[2016-12-13 22:00] VITALS: BP 115/62
[2016-12-14] MEDS: MEROPENEM INJ 1 GM in D5W MINI-BAG PLUS 100 ML IV SCH ×3 (00:28→17:00)
[2016-12-14 06:00] VITALS: BP 136/66
[2016-12-14] MEDS: LEVOTHYROXINE 75MCG TABLET (0.075MG) GT SCH (06:06)
[2016-12-14 06:28] LABS: BASO # 0.1 10^3/uL (0.0-0.2); BASO % 0.4 % (0.0-1.0); EOS # 1.5 10^3/uL (0.0-0.50); EOS % 12.6 % (0.0-3.0); IMMATURE GRANULOCYTE % 0.7 % (0-0); LYMPH # 1.1 10^3/uL (1.5-4.5); LYMPH % 8.7 % (24.0-44.0); MEAN CORPUSCULAR HEMOGLOBIN 29.8 pg (27.0-33.0); MEAN CORPUSCULAR HGB CONC 32.3 g/dl (32.0-36.5); MEAN CORPUSCULAR VOLUME 92.2 fl (80.0-96.0); MONO # 1.1 10^3/uL (0.0-0.8); NEUTROPHILS # 8.4 10^3/uL (1.8-7.7); NEUTROPHILS % 68.6 % (36.0-66.0); PLATELET COUNT, AUTOMATED 312 10^3/uL (150-450); WHITE BLOOD COUNT 12.2 10^3/uL (4.0-10.0)
[2016-12-14 06:48] LABS: INR 1.79
[2016-12-14 06:51] LABS: CALCIUM LEVEL 8.8 MG/DL (8.8-10.2); CREATININE FOR GFR 0.95 MG/DL (0.55-1.02); POTASSIUM SERUM 4.6 MEQ/L (3.5-5.1)
[2016-12-14] MEDS ORDERED: guaiFENesin SYRUP 200 MG/10 ML UDC PO PRN (08:30)
[2016-12-14] MEDS: LANSOPRAZOLE SUSPENSION 30 MG/10 ML ORAL SYRINGE (FIRST-LANSOPRAZOLE) GT SCH ×2 (09:57→22:00)
[2016-12-14] MEDS: LACOSAMIDE 50 MG TAB (VIMPAT) GT SCH ×2 (09:57→21:59)
[2016-12-14] MEDS: ALPRAZolam 0.25 MG TAB GT SCH ×4 (09:57→21:00)
[2016-12-14] MEDS: NYSTATIN 100,000 UNITS/GM TOPICAL PWD 15 GM TOP SCH ×2 (09:58→21:59)
[2016-12-14] MEDS: FLUCONAZOLE 200 MG in APPROPRIATE DILUENT 1 EA IV SCH (10:00)
[2016-12-14] MEDS: ALBUTEROL SULFATE 2.5 MG/0.5 ML INH NEB SOLN INH PRN (11:31)
--- NOTE | 2016-12-14 12:16 | IPNPDOC ---
Text Note Date of Service The patient was seen on 12/14/16. NOTE Subjective: Patient is a 89 year old female with a PMHx of Severe Alzheimer's dementia (Non-verbal), s/p GJ tube, Hx of CVA, Hx of DVT, Asthma, Seizure Disorder, Hypothyroidism, Anxiety, Hx of C. diff, Hx of recurrent UTIs, Hiatal hernia / GERD who presented to the ER with reports of SOB and increased urinary frequency. Patient was found to have a bilateral pneumonia likely 2/2 aspiration. Patient was seen and examined at the bedside. She remains non-verbal. Patient is currently on feedings via the G componenet of the GJ tube. Her J tube is planned to evaluation by IR tomorrow (Thursday). Objective: Vitals (See below) General: Lying in bed, no acute distress, comfortable, dementia HEENT: NC, AT CVS: RRR, +S1S2 Lungs: Fair air entry b/l, -w/r/r Abdomen: Soft, ND, NT, +GJ tube Extremities: - Edema, - Calf tenderness Assessment and plan: Leukocytosis / Fever - likely 2/2 sepsis - 2./2 multifocal bilateral pneumonia - likely 2/2 aspiration pneumonia - Presented with SOB - No additional fevers noted - Leukocytosis has shown improvement initially, mild elevation today - CT chest 12/10: increased bilateral lower lobes and right upper lobe ground glass density/airspace disease suggestive of multifocal pneumonia - c/w Meropenem (Antibiotics day #4) - Will try and taper down supplemental oxygen requirement Thrush - likely 2/2 antibiotic use - Will start Diflucan (Day #1) - Not an allergy as was reported; was noted to have an elevation in INR while on Coumadin - Will monitor INR daily Malfunction of GJ tube - Noted to have obstruction of J tube - Will be evaluated by IR on Thursday - c/w Diluted Jevity and increased frequency of flushes Abnormal UA - Was suspected to have a possible UTI - Urine cultures remain negative 12/10 Chronic constipation - c/w Bowel regimen s/p Hyponatremia s/p Lactic acidosis Hypothyroidism - c/w Levothyroxine Asthma - c/w Duoneb Seizure disorder - c/w Lacosamide - c/w Seizure precautions Severe Alzheimer's Hx of back surgery Hx of C. diff Anxiety - c/w Alprazolam and Mirtazapine Urinary retention - c/w Bladder scans GERD - c/w Lansoprazole DVT prophylaxis - c/w Coumadin for Hx of DVT - INR Code status: - Full code Disposition: - Complete antibiotic course VS,Arnav, I+O VS, Arnav, I+O Laboratory Tests 12/14/16 06:20 Red Blood Count 3.86 L, Mean Corpuscular Volume 92.2, Mean Corpuscular Hemoglobin 29.8, Mean Corpuscular Hemoglobin Concent 32.3, Red Cell Distribution Width 15.0 H, Neutrophils (%) (Auto) 68.6 H, Lymphocytes (%) (Auto ) 8.7 L, Monocytes (%) (Auto) 9.0 H, Eosinophils (%) (Auto) 12.6 H, Basophils (% ) (Auto) 0.4, Neutrophils # (Auto) 8.4 H, Lymphocytes # (Auto) 1.1 L, Monocytes # (Auto) 1.1 H, Eosinophils # (Auto) 1.5 H, Basophils # (Auto) 0.1, Calcium Level 8.8 Vital Signs Date Time Temp Pulse Resp B/P (MAP) Pulse Ox O2 Delivery O2 Flow Rate FiO2 12/14/16 06:00 98.3 98 18 136/66 (89) 92 Room Air 12/13/16 22:00 2.0 I&O- Last 24 Hours up to 6 AM 12/15/16 06:00 Intake Total 0 ml Balance 0 ml ROME SOLANO MD Dec 14, 2016 12:16
[2016-12-14 14:00] VITALS: BP 153/95
[2016-12-14] MEDS: WARFARIN SOD 2.5 MG TAB GT SCH (17:00)
[2016-12-14] MEDS: MIRTAZAPINE 15 MG TAB GT SCH (21:59)
[2016-12-14 22:00] VITALS: BP 147/95
[2016-12-15] MEDS: MEROPENEM INJ 1 GM in D5W MINI-BAG PLUS 100 ML IV SCH ×3 (01:00→17:53)
[2016-12-15] MEDS: LEVOTHYROXINE 75MCG TABLET (0.075MG) GT SCH (05:31)
[2016-12-15 06:00] VITALS: BP 128/60
[2016-12-15 06:58] LABS: BASO # 0.1 10^3/uL (0.0-0.2); BASO % 0.5 % (0.0-1.0); EOS # 0.6 10^3/uL (0.0-0.50); EOS % 5.3 % (0.0-3.0); IMMATURE GRANULOCYTE % 0.6 % (0-0); LYMPH # 1.2 10^3/uL (1.5-4.5); LYMPH % 10.4 % (24.0-44.0); MEAN CORPUSCULAR HEMOGLOBIN 30.4 pg (27.0-33.0); MEAN CORPUSCULAR HGB CONC 33.4 g/dl (32.0-36.5); MONO # 1.2 10^3/uL (0.0-0.8); MONO % 10.4 % (0.0-5.0); NEUTROPHILS # 8.7 10^3/uL (1.8-7.7); NEUTROPHILS % 72.8 % (36.0-66.0); PLATELET COUNT, AUTOMATED 326 10^3/uL (150-450); RED CELL DISTRIBUTION WIDTH 14.6 % (11.5-14.5); WHITE BLOOD COUNT 11.9 10^3/uL (4.0-10.0)
[2016-12-15 07:13] LABS: ALBUMIN 2.5 GM/DL (3.2-5.2); ALBUMIN/GLOBULIN RATIO 0.57 (1.00-1.93); BILIRUBIN,TOTAL 0.9 MG/DL (0.2-1.0); CALCIUM LEVEL 8.8 MG/DL (8.8-10.2); CREATININE FOR GFR 0.98 MG/DL (0.55-1.02); GLOMERULAR FILTRATION RATE 56.9 (>32); MAGNESIUM LEVEL 2.6 MG/DL (1.8-2.4); POTASSIUM SERUM 4.2 MEQ/L (3.5-5.1); TOTAL PROTEIN 6.9 GM/DL (6.4-8.2)
[2016-12-15] MEDS: ALBUTEROL SULFATE 2.5 MG/0.5 ML INH NEB SOLN INH PRN ×3 (08:17→15:26)
[2016-12-15 08:51] VITALS: BP 170/70
[2016-12-15] MEDS ORDERED: FERROUS SULFATE DROPS 50ML BTL GT SCH (09:00)
[2016-12-15] MEDS: ALPRAZolam 0.25 MG TAB GT SCH ×6 (09:00→21:56)
[2016-12-15] MEDS: LACOSAMIDE 50 MG TAB (VIMPAT) GT SCH ×2 (09:02→20:55)
[2016-12-15] MEDS: LANSOPRAZOLE SUSPENSION 30 MG/10 ML ORAL SYRINGE (FIRST-LANSOPRAZOLE) GT SCH ×2 (09:02→20:55)
[2016-12-15] MEDS: NYSTATIN 100,000 UNITS/GM TOPICAL PWD 15 GM TOP SCH ×2 (09:02→20:56)
--- NOTE | 2016-12-15 09:36 | REP ---
Portable chest, 09:16 a.m., single frontal view, the patient upright: Comparisons are the portable chest of 12/10/2016, portable chest of 09/13/[address] of 12/10/2016. There is complete opacification of the right hemithorax with mediastinal shift to the right compatible with complete atelectasis of the right lung. Consider the possibility of an endobronchial obstructive lesion. Left lung is clear. Cardiac size cannot be determined. Signed by Bonifacio Lara MD 12/15/2016 09:28 A
[2016-12-15] MEDS: D5W/0.45% SODIUM CHLORIDE 1,000 ML IV SCH (11:14)
[2016-12-15] MEDS: FLUCONAZOLE 200 MG in APPROPRIATE DILUENT 1 EA IV SCH (11:14)
[2016-12-15 13:51] VITALS: BP 123/70
--- NOTE | 2016-12-15 15:25 | IPNPDOC ---
Text Note Date of Service The patient was seen on 12/15/16. NOTE Subjective: Patient is a 89 year old female with a PMHx of Severe Alzheimer's dementia (Non-verbal), s/p GJ tube, Hx of CVA, Hx of DVT, Asthma, Seizure Disorder, Hypothyroidism, Anxiety, Hx of C. diff, Hx of recurrent UTIs, Hiatal hernia / GERD who presented to the ER with reports of SOB and increased urinary frequency. Patient was found to have a bilateral pneumonia likely 2/2 aspiration. Patient was seen and examined at the bedside. Patient remains non-verbal. Patient was noted to have increase respiratory rate and increasing oxygen requirement. She has been on aerosol mask oxygen. Portable CXR completed revealed that there was complete atelectasis of the right lung. Chest PT has been ordered. I have discussed with the daughter that her mother will continue to have aspiration because of her inability to clear her secretions given her advanced dementia. I have strongly advised her that she should consider comfort measures as we will never be able to treat the underlying cause. Daughter was adamant that she didn't want to give up and wanted to pursue aggressive treatment. I have called and discussed the case with Dr. Alba (Pulmonary) and he will be on consultation for possible intervention if chest PT is unsuccessful. Objective: Vitals (See below) General: Lying in bed, no acute distress, comfortable, dementia HEENT: NC, AT CVS: RRR, +S1S2 Lungs: Diminished lung sounds at right lung field, Abdomen: Soft, ND, NT, +GJ tube Extremities: - Edema, - Calf tenderness Assessment and plan: Leukocytosis / Fever - likely 2/2 sepsis - 2/2 multifocal bilateral pneumonia - likely 2/2 aspiration pneumonia - Presented with SOB - No additional fevers noted - Leukocytosis has trended down; CRP has shown a slight elevation - CT chest 12/10: increased bilateral lower lobes and right upper lobe ground glass density/airspace disease suggestive of multifocal pneumonia - c/w Meropenem (Antibiotics day #5) Right lung complete atelectasis - Noted to have increased respiration and mucous in her mouth this morning - Portable CXR 12/15: Complete opacification of the right hemithorax with mediastinal shift to the right; compatible with complete atelectasis of the right lung - Started Chest PT - Discussed with daughter that this will likely continue because of her Advanced dementia; advised ORTHOPEDIC PHYSICAL THERAPIST - daughter does not want to change status at this point - Remains FULL CODE - Discussed case with Dr. Alba; will start Nasotracheal suctioning - Dr. Alba will see the patient on consultation Thrush - likely 2/2 antibiotic use - c/w Diflucan (Day #2) - Not an allergy as was reported; was noted to have an elevation in INR while on Coumadin - Will monitor INR daily; pending today Malfunction of GJ tube - Noted to have obstruction of J tube - IR unable to provide any intervention - Discussed with Surgery; advised to continue feedings via G tube; recommended outpatient follow up with [place] - c/w Diluted Jevity at slower rate and increased frequency of flushes Abnormal UA - Was suspected to have a possible UTI - Urine cultures remain negative 12/10 Chronic constipation - c/w Bowel regimen s/p Hyponatremia s/p Lactic acidosis Hypothyroidism - c/w Levothyroxine Asthma - c/w Duoneb Seizure disorder - c/w Lacosamide - c/w Seizure precautions Severe Alzheimer's Hx of back surgery Hx of C. diff Anxiety - c/w Alprazolam and Mirtazapine Urinary retention - c/w Bladder scans GERD - c/w Lansoprazole DVT prophylaxis - c/w Coumadin for Hx of DVT Code status: - FULL CODE Disposition: - Complete antibiotic course - Supplemental oxygen - Chest PT - Consult pulmonary VS,Fishbone, I+O VS, Fishbone, I+O Laboratory Tests 12/15/16 06:44 Red Blood Count 3.98 L, Mean Corpuscular Volume 91.0, Mean Corpuscular Hemoglobin 30.4, Mean Corpuscular Hemoglobin Concent 33.4, Red Cell Distribution Width 14.6 H, Neutrophils (%) (Auto) 72.8 H, Lymphocytes (%) (Auto ) 10.4 L, Monocytes (%) (Auto) 10.4 H, Eosinophils (%) (Auto) 5.3 H, Basophils ( %) (Auto) 0.5, Neutrophils # (Auto) 8.7 H, Lymphocytes # (Auto) 1.2 L, Monocytes # (Auto) 1.2 H, Eosinophils # (Auto) 0.6 H, Basophils # (Auto) 0.1, Calcium Level 8.8, Aspartate Amino Transf (AST/SGOT) 22, Alanine Aminotransferase (ALT/SGPT) 35, Alkaline Phosphatase 87, Total Bilirubin 0.9, Total Protein 6.9, Albumin 2.5 L Vital Signs Date Time Temp Pulse Resp B/P (MAP) Pulse Ox O2 Delivery O2 Flow Rate FiO2 12/15/16 13:58 98.3 12/15/16 13:51 97 18 123/70 (87) 97 Aerosol Mask 10.0 12/15/16 08:00 60 I&O- Last 24 Hours up to 6 AM 12/16/16 05:59 Intake Total 200 ml Balance 200 ml ROME SOLANO MD Dec 15, 2016 15:25
[2016-12-15 16:11] LABS: INR 2.32
--- NOTE | 2016-12-15 17:18 | CR ---
DATE OF CONSULTATION: 12/15/2016 PULMONARY CONSULTATION: I was called to see this 89-year-old female with hypoxemic respiratory distress and abnormal x-rays. She has a past pulmonary history of asthma, minimal remote smoking and recently multiple episodes of presumed aspiration pneumonia. She was admitted on 12/11/2016, with respiratory distress. A CT scan showed findings suggesting aspiration pneumonia with ground-glass opacities in the bases. Her J-tube malfunctioned and the gastric port was being used for feedings. Yesterday her respiratory rate became elevated and her oxygen requirement has progressively increased over the night. Her past medical history is extensive and includes hypothyroidism, lumbar spinal disease, post kyphoplasty, asthma, dementia, progressive macular degeneration, decubitus ulcers, urosepsis times two, pulmonary embolism and DVT 2011, acute kidney injury, CVAs, Clostridium difficile colitis, nocturnal hypoxemia requiring oxygen since March of this year, three admissions for fever of unknown origin , aspiration pneumonia on three occasions and hiatal hernia with GE/J-tube placement May 2016. Her medications are outlined in the electronic medical record. Review of systems is unobtainable as the patient is obtunded. Her temperature is 98.3, pulse rate 97, respirations 18, blood pressure 123/70. She does not appear to be in significant respiratory distress but is unresponsive to voice, minimally responsive to pain. She is on a 10 liters flow oxygen mask using an aerosol system and saturation measures 97%. HEENT: Oral and nasal mucosa are pink. Her posterior pharynx is not erythematous. There is no jugular venous distension. Heart sounds are regular, somewhat distant. Breath sounds are absent over the right hemithorax, coarse clear over the left. Abdomen is soft with a G-tube in place. Site looks clean. Extremities show contracture deformities. She is in a position, lying on her back, leaning toward the right side. Peripheral pulses are able to be palpated. DIAGNOSTIC STUDIES: White cell count is 11.9, hemoglobin 12.1, hematocrit 36, platelet count 326,000 , sodium 136, potassium 4.2, chloride 101, CO2 28, BUN 21, creatinine 0.98, glucose 101. Chest x-ray shows total atelectasis of the right lung this morning, significant progression since admission to the hospital. Repeat chest x-ray performed just now shows no change. IMPRESSION: 1. Mucus plugging with total atelectasis of the right lung. 2. Hypoxemia 3. Multiple aspiration pneumonia events. 4. Complex and progressive medical illness secondary to multiple comorbidities as outlined above. RECOMMENDATIONS: 1. We will attempt deep suctioning via nasal trumpet in an effort to clear her airways. We will administer an acetylcysteine to thin secretions and schedule nebulized therapy as opposed to as needed. 2. Will recheck a chest x-ray in the morning. 3. Bronchoscopy while an option represents a significant risk for complications given her multiple comorbidities and may be futile. 4. I discussed the advanced nature of the patients illness and risk of deterioration with the patient's daughters at bedside. They are considering options in regard to advanced directives. Thank you for allowing me to consult in the care of this patient. If there are questions or additional requests, please do not hesitate to contact me. ANGELA
--- NOTE | 2016-12-15 17:28 | REP ---
Portable chest x-ray: Single view. History: Monitor for improvement after chest physical therapy. Comparison study: 12/15/2016 at 09:16 a.m. Findings: Complete opacification and collapse the right lung is again seen with shift of mediastinum to the right. This is unchanged from this morning's chest x-ray. Left lung remains clear. Signed by Sabino Greco MD 12/16/2016 12:49 P
[2016-12-15] MEDS: WARFARIN SOD 2.5 MG TAB GT SCH (17:53)
[2016-12-15] MEDS: SCOPOLAMINE 1.5 MG TRANSDERMAL TOP SCH (17:53)
[2016-12-15] MEDS: ALBUTEROL SULFATE 2.5 MG/0.5 ML INH NEB SOLN NEB SCH (20:14)
[2016-12-15] MEDS: ACETYLCYSTEINE 20% 4 ML VIAL (200MG/ML) INH SCH (20:14)
[2016-12-15] MEDS: MIRTAZAPINE 15 MG TAB GT SCH (20:55)
[2016-12-15 22:00] VITALS: BP 121/72
[2016-12-16] MEDS: ALBUTEROL SULFATE 2.5 MG/0.5 ML INH NEB SOLN NEB SCH ×7 (00:17→23:14)
[2016-12-16] MEDS: MEROPENEM INJ 1 GM in D5W MINI-BAG PLUS 100 ML IV SCH ×3 (00:41→17:50)
[2016-12-16] MEDS: D5W/0.45% SODIUM CHLORIDE 1,000 ML IV SCH ×2 (03:31→21:33)
[2016-12-16] MEDS: LEVOTHYROXINE 75MCG TABLET (0.075MG) GT SCH (05:31)
[2016-12-16 06:00] VITALS: BP 121/71
[2016-12-16 06:47] LABS: BASO # 0.1 10^3/uL (0.0-0.2); BASO % 0.4 % (0.0-1.0); EOS # 0.8 10^3/uL (0.0-0.50); IMMATURE GRANULOCYTE % 0.5 % (0-0); LYMPH # 0.9 10^3/uL (1.5-4.5); LYMPH % 7.3 % (24.0-44.0); MEAN CORPUSCULAR HEMOGLOBIN 30.6 pg (27.0-33.0); MEAN CORPUSCULAR HGB CONC 33.2 g/dl (32.0-36.5); MEAN CORPUSCULAR VOLUME 92.2 fl (80.0-96.0); MONO # 1.2 10^3/uL (0.0-0.8); MONO % 9.6 % (0.0-5.0); NEUTROPHILS # 9.6 10^3/uL (1.8-7.7); NEUTROPHILS % 76.2 % (36.0-66.0); PLATELET COUNT, AUTOMATED 287 10^3/uL (150-450); RED CELL DISTRIBUTION WIDTH 14.4 % (11.5-14.5); WHITE BLOOD COUNT 12.6 10^3/uL (4.0-10.0)
[2016-12-16 07:00] LABS: INR 3.48
[2016-12-16 07:12] LABS: BLOOD UREA NITROGEN 17 MG/DL (7-18); CREATININE FOR GFR 0.88 MG/DL (0.55-1.02); GLUCOSE, FASTING 120 MG/DL (83-110)
[2016-12-16 07:13] LABS: ALBUMIN 2.4 GM/DL (3.2-5.2); ALBUMIN/GLOBULIN RATIO 0.62 (1.00-1.93); ALKALINE PHOSPHATASE 76 U/L (45-117); ALT/SGPT 29 U/L (12-78); ANION GAP 6 MEQ/L (8-16); AST/SGOT 15 U/L (15-37); BILIRUBIN,TOTAL 0.7 MG/DL (0.2-1.0); CALCIUM LEVEL 8.1 MG/DL (8.8-10.2); CARBON DIOXIDE LEVEL 30 MEQ/L (21-32); CHLORIDE LEVEL 100 MEQ/L (98-107); GLOMERULAR FILTRATION RATE > 60.0 (>32); MAGNESIUM LEVEL 2.2 MG/DL (1.8-2.4); POTASSIUM SERUM 3.5 MEQ/L (3.5-5.1); SODIUM LEVEL 136 MEQ/L (136-145); TOTAL PROTEIN 6.3 GM/DL (6.4-8.2)
[2016-12-16] MEDS: WARFARIN SOD 2.5 MG TAB GT SCH (07:37)
[2016-12-16] MEDS: ACETYLCYSTEINE 20% 4 ML VIAL (200MG/ML) INH SCH (08:00)
--- NOTE | 2016-12-16 08:07 | REP ---
Portable chest, 07:25 a.m.: Comparisons are 12/15/2016. There is aeration of some of the right upper lobe as an interval change. Remainder of the right lung remains opacified. Left lung is clear. The patient is rotated. Vertebroplasties in the lower thoracic and upper lumbar spine are again identified. Signed by Bonifacio Lara MD 12/16/2016 07:58 A
[2016-12-16] MEDS: ALPRAZolam 0.25 MG TAB GT SCH ×6 (09:00→20:18)
[2016-12-16] MEDS: LACOSAMIDE 50 MG TAB (VIMPAT) GT SCH ×2 (09:21→20:18)
[2016-12-16] MEDS: LANSOPRAZOLE SUSPENSION 30 MG/10 ML ORAL SYRINGE (FIRST-LANSOPRAZOLE) GT SCH ×2 (09:21→20:18)
[2016-12-16] MEDS: NYSTATIN 100,000 UNITS/GM TOPICAL PWD 15 GM TOP SCH ×2 (09:22→20:19)
[2016-12-16] MEDS: MOM 30ML SUSPENSION UDC GT PRN (10:42)
[2016-12-16] MEDS: FLUCONAZOLE 200 MG in APPROPRIATE DILUENT 1 EA IV SCH (10:42)
--- NOTE | 2016-12-16 13:37 | IPNPDOC ---
Text Note Date of Service The patient was seen on 12/16/16. NOTE Subjective: Patient is a 89 year old female with a PMHx of Severe Alzheimer's dementia (Non-verbal), s/p GJ tube, Hx of CVA, Hx of DVT, Asthma, Seizure Disorder, Hypothyroidism, Anxiety, Hx of C. diff, Hx of recurrent UTIs, Hiatal hernia / GERD who presented to the ER with reports of SOB and increased urinary frequency. Patient was found to have a bilateral pneumonia likely 2/2 aspiration. Patient was seen and examined at the bedside. Again remains non-verbal. Appears to be more comfortable. Objective: Vitals (See below) General: Lying in bed, no acute distress, comfortable, dementia HEENT: NC, AT CVS: RRR, +S1S2 Lungs: Diminished lung sounds at right lung base; right upper and entire left lung with aeration noted, no crackles / wheezing appreciated Abdomen: Soft, ND, NT, +GJ tube Extremities: - Edema, - Calf tenderness Assessment and plan: Leukocytosis / Fever - likely 2/2 sepsis - 2/2 multifocal bilateral pneumonia - likely 2/2 aspiration pneumonia - Presented with SOB - No additional fevers noted - Leukocytosis has remained stable ; CRP has shown an elevation - CT chest 12/10: increased bilateral lower lobes and right upper lobe ground glass density/airspace disease suggestive of multifocal pneumonia - c/w Meropenem (Antibiotics day #6) Right lung complete atelectasis - likely 2/2 mucous plugging - Noted to have increased respiration and mucous in her mouth this morning - Portable CXR 12/16: aeration of some of the right upper lobe as an interval change, remainder of the right lung remains opacified; Left lung clear - c/w Chest PT and NT suctioning - c/w Scopolamine patch to reduce secretions - Consulted Pulmonary (Dr. Alba); appreciate their input Thrush - likely 2/2 antibiotic use - c/w Diflucan (Day #2) - Follow INR carefully Malfunction of GJ tube - Noted to have obstruction of J tube - IR unable to provide any intervention - Discussed with Surgery; advised to continue feedings via G tube; recommended outpatient follow up with [place] - Will consider consultation with GI when ready for procedure - c/w Diluted Jevity at slower rate and increased frequency of flushes Abnormal UA - Was suspected to have a possible UTI - Urine cultures remain negative 12/10 Chronic constipation - c/w Bowel regimen s/p Hyponatremia s/p Lactic acidosis Hypothyroidism - c/w Levothyroxine Asthma - c/w Duoneb Seizure disorder - c/w Lacosamide - c/w Seizure precautions Severe Alzheimer's Hx of back surgery Hx of C. diff Anxiety - c/w Alprazolam and Mirtazapine Urinary retention - c/w Bladder scans GERD - c/w Lansoprazole DVT prophylaxis - c/w Coumadin for Hx of DVT - INR of 3.48; will hold Coumadin Code status: - FULL CODE Disposition: - Complete antibiotic course and provide supplemental oxygen - c/w chest PT and NAC to improve secretions VS,Fishbone, I+O VS, Fishbone, I+O Laboratory Tests 12/16/16 06:25 Red Blood Count 3.59 L, Mean Corpuscular Volume 92.2, Mean Corpuscular Hemoglobin 30.6, Mean Corpuscular Hemoglobin Concent 33.2, Red Cell Distribution Width 14.4, Neutrophils (%) (Auto) 76.2 H, Lymphocytes (%) (Auto) 7.3 L, Monocytes (%) (Auto) 9.6 H, Eosinophils (%) (Auto) 6.0 H, Basophils (%) ( Auto) 0.4, Neutrophils # (Auto) 9.6 H, Lymphocytes # (Auto) 0.9 L, Monocytes # ( Auto) 1.2 H, Eosinophils # (Auto) 0.8 H, Basophils # (Auto) 0.1, Calcium Level 8.1 L, Aspartate Amino Transf (AST/SGOT) 15, Alanine Aminotransferase (ALT/SGPT ) 29, Alkaline Phosphatase 76, Total Bilirubin 0.7, Total Protein 6.3 L, Albumin 2.4 L Vital Signs Date Time Temp Pulse Resp B/P (MAP) Pulse Ox O2 Delivery O2 Flow Rate FiO2 12/16/16 08:00 Venturi Mask 10.0 60 12/16/16 06:00 98.6 94 15 121/71 (88) 97 I&O- Last 24 Hours up to 6 AM 12/17/16 06:00 Intake Total 0 ml Balance 0 ml ROME SOLANO MD Dec 16, 2016 13:37
[2016-12-16] MEDS: MIRTAZAPINE 15 MG TAB GT SCH (20:18)
[2016-12-16 22:00] VITALS: BP 133/89
[2016-12-17] MEDS: MEROPENEM INJ 1 GM in D5W MINI-BAG PLUS 100 ML IV SCH ×3 (01:06→17:54)
[2016-12-17] MEDS: ALBUTEROL SULFATE 2.5 MG/0.5 ML INH NEB SOLN NEB SCH ×5 (02:37→19:48)
[2016-12-17] MEDS: LEVOTHYROXINE 75MCG TABLET (0.075MG) GT SCH (05:01)
[2016-12-17 06:00] VITALS: BP 118/72
[2016-12-17 07:09] LABS: INR 4.74
[2016-12-17 07:10] LABS: ALBUMIN 2.6 GM/DL (3.2-5.2); ALBUMIN/GLOBULIN RATIO 0.67 (1.00-1.93); ALKALINE PHOSPHATASE 77 U/L (45-117); ALT/SGPT 30 U/L (12-78); ANION GAP 5 MEQ/L (8-16); AST/SGOT 20 U/L (15-37); BILIRUBIN,TOTAL 0.5 MG/DL (0.2-1.0); BLOOD UREA NITROGEN 11 MG/DL (7-18); CALCIUM LEVEL 8.4 MG/DL (8.8-10.2); CARBON DIOXIDE LEVEL 28 MEQ/L (21-32); CHLORIDE LEVEL 105 MEQ/L (98-107); GLOMERULAR FILTRATION RATE > 60.0 (>32); GLUCOSE, FASTING 115 MG/DL (83-110); MAGNESIUM LEVEL 2.4 MG/DL (1.8-2.4); POTASSIUM SERUM 3.4 MEQ/L (3.5-5.1); SODIUM LEVEL 138 MEQ/L (136-145); TOTAL PROTEIN 6.5 GM/DL (6.4-8.2)
[2016-12-17 07:12] LABS: BASO # 0.1 10^3/uL (0.0-0.2); BASO % 0.6 % (0.0-1.0); EOS # 1.6 10^3/uL (0.0-0.50); EOS % 15.1 % (0.0-3.0); IMMATURE GRANULOCYTE % 0.7 % (0-0); LYMPH # 0.8 10^3/uL (1.5-4.5); LYMPH % 7.4 % (24.0-44.0); MEAN CORPUSCULAR HEMOGLOBIN 30.1 pg (27.0-33.0); MEAN CORPUSCULAR HGB CONC 32.8 g/dl (32.0-36.5); MEAN CORPUSCULAR VOLUME 91.8 fl (80.0-96.0); MONO # 1.1 10^3/uL (0.0-0.8); MONO % 10.4 % (0.0-5.0); NEUTROPHILS # 6.9 10^3/uL (1.8-7.7); NEUTROPHILS % 65.8 % (36.0-66.0); PLATELET COUNT, AUTOMATED 283 10^3/uL (150-450); RED CELL DISTRIBUTION WIDTH 14.5 % (11.5-14.5); WHITE BLOOD COUNT 10.4 10^3/uL (4.0-10.0)
--- NOTE | 2016-12-17 09:03 | REP ---
PORTABLE CHEST: AP portable view of the chest is performed. Comparison is made with multiple prior exams, the most recent of which is 12/16/2016. There is again cardiomegaly noted. Mild bibasilar atelectasis/infiltrate is noted. There may be small effusions. There is calcification and ectasia of the thoracic aorta. IMPRESSION: Mild bibasilar atelectasis/infiltrate with small left effusion and possible small right effusion. Signed by Bonifacio Heaton MD 12/17/2016 04:40 P
[2016-12-17] MEDS: LANSOPRAZOLE SUSPENSION 30 MG/10 ML ORAL SYRINGE (FIRST-LANSOPRAZOLE) GT SCH ×2 (09:51→21:41)
[2016-12-17] MEDS: KCL 10MEQ IN 100ML SWI (KRUN) 10 MEQ in APPROPRIATE DILUENT 1 EA IV SCH ×4 (09:51→13:07)
[2016-12-17] MEDS: ALPRAZolam 0.25 MG TAB GT SCH ×8 (09:52→21:41)
[2016-12-17] MEDS: LACOSAMIDE 50 MG TAB (VIMPAT) GT SCH ×2 (09:52→21:41)
[2016-12-17] MEDS: NYSTATIN 100,000 UNITS/GM TOPICAL PWD 15 GM TOP SCH ×2 (09:52→21:00)
[2016-12-17 11:35] VITALS: O2SAT 96
[2016-12-17] MEDS: D5W/0.45% SODIUM CHLORIDE 1,000 ML IV SCH (13:00)
[2016-12-17] MEDS ORDERED: KCL 10MEQ IN STERILE WATER 100ML As Ordered ONE (13:03)
[2016-12-17] MEDS: WARFARIN SOD 2.5 MG TAB GT SCH (13:49)
[2016-12-17] MEDS: FLUCONAZOLE 200 MG in APPROPRIATE DILUENT 1 EA IV SCH (14:55)
--- NOTE | 2016-12-17 15:15 | IPNPDOC ---
Text Note Date of Service The patient was seen on 12/17/16. NOTE Subjective: Patient is a 89 year old female with a PMHx of Severe Alzheimer's dementia (Non-verbal), s/p GJ tube, Hx of CVA, Hx of DVT, Asthma, Seizure Disorder, Hypothyroidism, Anxiety, Hx of C. diff, Hx of recurrent UTIs, Hiatal hernia / GERD who presented to the ER with reports of SOB and increased urinary frequency. Patient was found to have a bilateral pneumonia likely 2/2 aspiration. Patient was seen and examined at the bedside. No mental status still. Objective: Vitals (See below) General: Lying in bed, no acute distress, comfortable, dementia HEENT: NC, AT CVS: RRR, +S1S2 Lungs: Diminished lung sounds at right lung base; right upper and entire left lung with aeration noted, no crackles / wheezing appreciated Abdomen: Soft, ND, NT, +GJ tube Extremities: - Edema, - Calf tenderness Assessment and plan: Leukocytosis / Fever - likely 2/2 sepsis - 2/2 multifocal bilateral pneumonia - likely 2/2 aspiration pneumonia - Presented with SOB - No additional fevers noted - Leukocytosis improving ; CRP stable - CT chest 12/10: increased bilateral lower lobes and right upper lobe ground glass density/airspace disease suggestive of multifocal pneumonia - c/w Meropenem (Antibiotics day #7) s/p Right lung complete atelectasis - likely 2/2 mucous plugging - Noted to have increased respiration and mucous in her mouth this morning - Portable CXR 12/17: improved aeration of right lung, mild bibasilar atelectasis / infiltrate with small left effusion and possible small right effusion - c/w Chest PT, NT suctioning, Scopolamine patch to reduce secretions - Consulted Pulmonary (Dr. Alba); appreciate their input Thrush - likely 2/2 antibiotic use - c/w Diflucan (Day #3) - Follow INR carefully Malfunction of GJ tube - Noted to have obstruction of J tube - Current IR team and GI unable to perform replacement; Discussed with surgery, however would be a surgical option (not medically cleared for this procedure) - Will transfer to [facility] for IR guided replacement of GJ tube - Hold feedings Abnormal UA - Was suspected to have a possible UTI - Urine cultures remain negative 12/10 Chronic constipation - c/w Bowel regimen s/p Hyponatremia s/p Lactic acidosis Hypothyroidism - c/w Levothyroxine Asthma - c/w DuoNeb Seizure disorder - c/w Lacosamide - c/w Seizure precautions Severe Alzheimer's Hx of back surgery Hx of C. diff Anxiety - c/w Alprazolam and Mirtazapine Urinary retention - c/w Bladder scans GERD - c/w Lansoprazole DVT prophylaxis - c/w Coumadin for Hx of DVT - INR supra-therapeutic; will hold Coumadin Code status: - FULL CODE Disposition: - Complete antibiotic course and provide supplemental oxygen - c/w antibiotics - Waiting list for transfer to [facility], [facility], [facility], [facility] Laboratory Tests 12/17/16 06:38 Red Blood Count 3.89 L, Mean Corpuscular Volume 91.8, Mean Corpuscular Hemoglobin 30.1, Mean Corpuscular Hemoglobin Concent 32.8, Red Cell Distribution Width 14.5, Neutrophils (%) (Auto) 65.8, Lymphocytes (%) (Auto) 7.4 L, Monocytes (%) (Auto) 10.4 H, Eosinophils (%) (Auto) 15.1 H, Basophils (% ) (Auto) 0.6, Neutrophils # (Auto) 6.9, Lymphocytes # (Auto) 0.8 L, Monocytes # (Auto) 1.1 H, Eosinophils # (Auto) 1.6 H, Basophils # (Auto) 0.1, Calcium Level 8.4 L, Aspartate Amino Transf (AST/SGOT) 20, Alanine Aminotransferase (ALT/SGPT ) 30, Alkaline Phosphatase 77, Total Bilirubin 0.5, Total Protein 6.5, Albumin 2.6 L Vital Signs Date Time Temp Pulse Resp B/P (MAP) Pulse Ox O2 Delivery O2 Flow Rate FiO2 12/17/16 11:35 96 Aerosol Mask 5.0 28 12/17/16 06:00 97.2 87 18 118/72 (87) I&O- Last 24 Hours up to 6 AM 12/18/16 06:00 Intake Total 400 ml Balance 400 ml ROME SOLANO MD Dec 17, 2016 15:15
[2016-12-17] MEDS: MIRTAZAPINE 15 MG TAB GT SCH (21:41)
[2016-12-17 22:00] VITALS: BP 145/80
[2016-12-18 00:05] VITALS: O2SAT 95
[2016-12-18] MEDS: ALBUTEROL SULFATE 2.5 MG/0.5 ML INH NEB SOLN NEB SCH ×7 (00:06→22:25)
[2016-12-18] MEDS: MEROPENEM INJ 1 GM in D5W MINI-BAG PLUS 100 ML IV SCH ×3 (01:06→16:32)
[2016-12-18] MEDS: D5W/0.45% SODIUM CHLORIDE 1,000 ML IV SCH (05:40)
[2016-12-18] MEDS: LEVOTHYROXINE 75MCG TABLET (0.075MG) GT SCH (05:59)
[2016-12-18 06:56] LABS: BASO # 0.1 10^3/uL (0.0-0.2); BASO % 0.5 % (0.0-1.0); EOS # 1.5 10^3/uL (0.0-0.50); EOS % 16.1 % (0.0-3.0); IMMATURE GRANULOCYTE % 0.4 % (0-0); LYMPH # 0.8 10^3/uL (1.5-4.5); LYMPH % 8.7 % (24.0-44.0); MEAN CORPUSCULAR HEMOGLOBIN 29.9 pg (27.0-33.0); MEAN CORPUSCULAR HGB CONC 32.5 g/dl (32.0-36.5); MONO % 10.3 % (0.0-5.0); NEUTROPHILS # 5.9 10^3/uL (1.8-7.7); PLATELET COUNT, AUTOMATED 296 10^3/uL (150-450); RED CELL DISTRIBUTION WIDTH 14.4 % (11.5-14.5); WHITE BLOOD COUNT 9.2 10^3/uL (4.0-10.0)
[2016-12-18 07:22] LABS: INR 5.83
[2016-12-18 07:37] LABS: ALBUMIN 2.8 GM/DL (3.2-5.2); ALKALINE PHOSPHATASE 81 U/L (45-117); ALT/SGPT 27 U/L (12-78); ANION GAP 8 MEQ/L (8-16); AST/SGOT 17 U/L (15-37); BILIRUBIN,TOTAL 0.5 MG/DL (0.2-1.0); BLOOD UREA NITROGEN 9 MG/DL (7-18); CALCIUM LEVEL 8.4 MG/DL (8.8-10.2); CARBON DIOXIDE LEVEL 26 MEQ/L (21-32); CHLORIDE LEVEL 106 MEQ/L (98-107); CREATININE FOR GFR 0.79 MG/DL (0.55-1.02); GLOMERULAR FILTRATION RATE > 60.0 (>32); GLUCOSE, FASTING 102 MG/DL (83-110); MAGNESIUM LEVEL 2.4 MG/DL (1.8-2.4); POTASSIUM SERUM 3.9 MEQ/L (3.5-5.1); SODIUM LEVEL 140 MEQ/L (136-145); TOTAL PROTEIN 5.9 GM/DL (6.4-8.2)
[2016-12-18] MEDS: WARFARIN SOD 2.5 MG TAB GT SCH (07:45)
[2016-12-18] MEDS: LACOSAMIDE 50 MG TAB (VIMPAT) GT SCH ×2 (09:34→22:06)
[2016-12-18] MEDS: ALPRAZolam 0.25 MG TAB GT SCH ×6 (09:34→20:00)
[2016-12-18] MEDS: LANSOPRAZOLE SUSPENSION 30 MG/10 ML ORAL SYRINGE (FIRST-LANSOPRAZOLE) GT SCH ×2 (09:34→22:07)
[2016-12-18] MEDS: NYSTATIN 100,000 UNITS/GM TOPICAL PWD 15 GM TOP SCH ×2 (09:35→22:07)
[2016-12-18] MEDS: FLUCONAZOLE 200 MG in APPROPRIATE DILUENT 1 EA IV SCH (11:51)
--- NOTE | 2016-12-18 16:29 | IPNPDOC ---
Text Note Date of Service The patient was seen on 12/18/16. NOTE Subjective: Patient is a 89 year old female with a PMHx of Severe Alzheimer's dementia (Non-verbal), s/p GJ tube, Hx of CVA, Hx of DVT, Asthma, Seizure Disorder, Hypothyroidism, Anxiety, Hx of C. diff, Hx of recurrent UTIs, Hiatal hernia / GERD who presented to the ER with reports of SOB and increased urinary frequency. Patient was found to have a bilateral pneumonia likely 2/2 aspiration. Patient was seen and examined at the bedside. Currently lying in bed, daughter at bedside. No mental status. Objective: Vitals (See below) General: Lying in bed, no acute distress, comfortable, dementia HEENT: NC, AT CVS: RRR, +S1S2 Lungs: Diminished lung sounds at right lung base; right upper and entire left lung with aeration noted, no crackles / wheezing appreciated Abdomen: Soft, ND, NT, +GJ tube Extremities: - Edema, - Calf tenderness Assessment and plan: Leukocytosis / Fever - likely 2/2 sepsis - 2/2 multifocal bilateral pneumonia - likely 2/2 aspiration pneumonia - Presented with SOB and fevers; no fevers throughout hospitalization - s/p Leukocytosis; CRP stable - CT chest 12/10: increased bilateral lower lobes and right upper lobe ground glass density/airspace disease suggestive of multifocal pneumonia - c/w Meropenem (Antibiotics day #8) s/p Right lung complete atelectasis - likely 2/2 mucous plugging - Breathing comfortably this morning - Portable CXR 12/17: improved aeration of right lung, mild bibasilar atelectasis / infiltrate with small left effusion and possible small right effusion - c/w Chest PT, NT suctioning, Scopolamine patch to reduce secretions - Consulted Pulmonary (Dr. Alba); appreciate their input Thrush - likely 2/2 antibiotic use - c/w Diflucan (Day #4) - Follow INR carefully Malfunction of GJ tube - Noted to have obstruction of J tube - Current IR team and GI unable to perform replacement; Discussed with surgery, however would be a surgical option (not medically cleared for this procedure) - Will transfer to [facility] for IR guided replacement of GJ tube; awaiting bed - Hold feedings Abnormal UA - Was suspected to have a possible UTI - Urine cultures remain negative 12/10 Chronic constipation - c/w Bowel regimen s/p Hyponatremia s/p Lactic acidosis Hypothyroidism - c/w Levothyroxine Asthma - c/w DuoNeb Seizure disorder - c/w Lacosamide - c/w Seizure precautions Severe Alzheimer's Hx of back surgery Hx of C. diff Anxiety - c/w Alprazolam and Mirtazapine Urinary retention - c/w Bladder scans GERD - c/w Lansoprazole DVT prophylaxis - c/w Coumadin for Hx of DVT - INR supra-therapeutic; will DC Coumadin Code status: - FULL CODE Disposition: - Complete antibiotic course and provide supplemental oxygen - c/w antibiotics and Diflucan - Waiting list for transfer to [facility], [facility] Laboratory Tests 12/18/16 06:43 Red Blood Count 3.64 L, Mean Corpuscular Volume 92.0, Mean Corpuscular Hemoglobin 29.9, Mean Corpuscular Hemoglobin Concent 32.5, Red Cell Distribution Width 14.4, Neutrophils (%) (Auto) 64.0, Lymphocytes (%) (Auto) 8.7 L, Monocytes (%) (Auto) 10.3 H, Eosinophils (%) (Auto) 16.1 H, Basophils (% ) (Auto) 0.5, Neutrophils # (Auto) 5.9, Lymphocytes # (Auto) 0.8 L, Monocytes # (Auto) 1.0 H, Eosinophils # (Auto) 1.5 H, Basophils # (Auto) 0.1, Calcium Level 8.4 L, Aspartate Amino Transf (AST/SGOT) 17, Alanine Aminotransferase (ALT/SGPT ) 27, Alkaline Phosphatase 81, Total Bilirubin 0.5, Total Protein 5.9 L, Albumin 2.8 L Vital Signs Date Time Temp Pulse Resp B/P (MAP) Pulse Ox O2 Delivery O2 Flow Rate FiO2 12/18/16 09:00 Venturi Mask 28 12/18/16 00:05 95 5.0 12/17/16 22:00 98.4 87 18 145/80 (101) I&O- Last 24 Hours up to 6 AM 12/19/16 06:00 Intake Total 100 ml Balance 100 ml ROME SOLANO MD Dec 18, 2016 16:29
[2016-12-18] MEDS: SCOPOLAMINE 1.5 MG TRANSDERMAL TOP SCH (16:32)
[2016-12-18] MEDS: MIRTAZAPINE 15 MG TAB GT SCH (22:07)
[2016-12-19] MEDS: MEROPENEM INJ 1 GM in D5W MINI-BAG PLUS 100 ML IV SCH ×2 (01:10→11:07)
[2016-12-19] MEDS: ALBUTEROL SULFATE 2.5 MG/0.5 ML INH NEB SOLN NEB SCH ×4 (03:35→15:09)
[2016-12-19 03:36] VITALS: O2SAT 99
[2016-12-19] MEDS: LEVOTHYROXINE 75MCG TABLET (0.075MG) GT SCH (05:48)
[2016-12-19 06:00] VITALS: BP 117/73
[2016-12-19 07:28] LABS: BASO # 0.1 10^3/uL (0.0-0.2); BASO % 0.9 % (0.0-1.0); EOS # 1.5 10^3/uL (0.0-0.50); EOS % 18.9 % (0.0-3.0); IMMATURE GRANULOCYTE % 0.5 % (0-0); LYMPH # 0.6 10^3/uL (1.5-4.5); LYMPH % 7.6 % (24.0-44.0); MEAN CORPUSCULAR HEMOGLOBIN 30.4 pg (27.0-33.0); MEAN CORPUSCULAR HGB CONC 32.7 g/dl (32.0-36.5); MEAN CORPUSCULAR VOLUME 92.8 fl (80.0-96.0); MONO # 0.8 10^3/uL (0.0-0.8); MONO % 9.8 % (0.0-5.0); NEUTROPHILS # 4.8 10^3/uL (1.8-7.7); NEUTROPHILS % 62.3 % (36.0-66.0); PLATELET COUNT, AUTOMATED 283 10^3/uL (150-450); RED CELL DISTRIBUTION WIDTH 14.5 % (11.5-14.5); WHITE BLOOD COUNT 7.8 10^3/uL (4.0-10.0)
[2016-12-19 07:44] LABS: INR 6.97
[2016-12-19 07:59] LABS: ALBUMIN 2.6 GM/DL (3.2-5.2); ALKALINE PHOSPHATASE 76 U/L (45-117); ALT/SGPT 23 U/L (12-78); ANION GAP 6 MEQ/L (8-16); AST/SGOT 16 U/L (15-37); BILIRUBIN,TOTAL 0.5 MG/DL (0.2-1.0); BLOOD UREA NITROGEN 8 MG/DL (7-18); CALCIUM LEVEL 8.2 MG/DL (8.8-10.2); CARBON DIOXIDE LEVEL 27 MEQ/L (21-32); CHLORIDE LEVEL 107 MEQ/L (98-107); CREATININE FOR GFR 0.68 MG/DL (0.55-1.02); GLOMERULAR FILTRATION RATE > 60.0 (>32); GLUCOSE, FASTING 102 MG/DL (83-110); MAGNESIUM LEVEL 2.1 MG/DL (1.8-2.4); POTASSIUM SERUM 3.7 MEQ/L (3.5-5.1); SODIUM LEVEL 140 MEQ/L (136-145); TOTAL PROTEIN 5.5 GM/DL (6.4-8.2)
[2016-12-19] MEDS: ALPRAZolam 0.25 MG TAB GT SCH ×7 (09:00→16:47)
[2016-12-19] MEDS ORDERED: PHYTONADIONE 5 MG TAB PO ONE (10:15)
[2016-12-19] MEDS ORDERED: PHYTONADIONE 2.5 MG **1/2 TAB PO ONE (10:15)
[2016-12-19] MEDS: NYSTATIN 100,000 UNITS/GM TOPICAL PWD 15 GM TOP SCH (11:06)
[2016-12-19] MEDS: LANSOPRAZOLE SUSPENSION 30 MG/10 ML ORAL SYRINGE (FIRST-LANSOPRAZOLE) GT SCH (11:07)
[2016-12-19] MEDS: LACOSAMIDE 50 MG TAB (VIMPAT) GT SCH (11:07)
[2016-12-19] MEDS: D5W/0.45% SODIUM CHLORIDE 1,000 ML IV SCH ×2 (11:07→14:28)
[2016-12-19] MEDS ORDERED: MERO1INJ IV (14:28)
--- NOTE | 2016-12-19 16:52 | DSES ---
DATE OF ADMISSION: 12/11/2016 DATE OF DISCHARGE: 12/19/2016 ATTENDING PHYSICIAN: Cedric Cisneros MD and Shandra Weldon MD PRIMARY CARE PHYSICIAN: Josef Calderon MD REFERRING PHYSICIAN: None. CONSULTING PHYSICIAN: None. CONDITION ON DISCHARGE: Stable. FINAL DIAGNOSIS: Multifocal bilateral pneumonia, likely secondary to aspiration pneumonia, likely secondary to malfunctioning gastrojejunostomy (GJ) tube. PROCEDURES: None. HISTORY OF THE PRESENT ILLNESS: The patient is an 89-year-old female with a past medical history of severe Alzheimer's dementia, nonverbal, status post GJ tube, history of cerebrovascular accident (CVA), history of deep vein thrombosis (DVT), asthma, seizure disorder, hypothyroidism, anxiety, history of Clostridium difficile, history of recurrent urinary tract infection, hiatal hernia and gastroesophageal reflux disease (GERD), presented to the emergency room with reports of shortness of breath and increased urinary frequency. The patient was found to have bilateral pneumonia, likely secondary to aspiration. HOSPITAL COURSE: 1. Leukocytosis with fever, likely secondary to sepsis, likely secondary to multifocal bilateral pneumonia, likely secondary to aspiration pneumonia, secondary to dysfunctioning GJ tube, presented with shortness of breath and fever. No fevers throughout hospitalization. Leukocytosis has resolved throughout the hospital course. C-reactive proteins (CRPs) have been trending down significantly. CT chest on 12/10/2016 revealed increased bilateral lower lobe and right upper lobe ground glass densities/air space disease, suggestive of multifocal pneumonia. She has been on meropenem for broad spectrum coverage for gram-negative bacteria. Currently, today is day #9 of antibiotics. 2. Status post right lung complete atelectasis, likely secondary to mucous plugging. Breathing has improved significantly since that point. She is currently on room air throughout the day. Portable chest x-ray on 12/17/2016 revealed improved aeration of the right lung, mild bibasilar atelectasis/infiltrate with small left effusion and possible small right effusion. Will continue with chest physical therapy, nasotracheal (NT) suctioning, scopolamine patch to reduce secretions. Pulmonary was consulted Dr. Alba. We appreciate their input. He has adjusted for breathing therapy. 3. Thrush. Likely secondary to antibiotic use. Today, she has completed 5 days of Diflucan. Her international normalized ratio (INR) has been elevated secondary to Diflucan. Coumadin has been held for the last 5 days. 4. Malfunctioning GJ tube. Noted to have an obstruction of the J component of the tube. Currently interventional radiology (IR) team is unable to perform replacement procedure because we do not have an bakery products checker that is capable of performing that change. Gastrointestinal (GI) is unable to perform the replacement as they have indicated that they do not have the proper equipment and surgery has indicated that it likely would be a J-tube placement but would be a surgery as opposed to a medical procedure. Currently, we have discussed the case with [facility] in [place], [place], and they have accepted the patient on transfer for replacement of the GJ tube via IR-guided placement, and it will be completed with antibiotics there. Currently, the patient is off feedings for the last 5 days. 5. History of deep vein thrombosis (DVT). She is on Coumadin as an outpatient. Coumadin has been held because INR has become supratherapeutic, likely secondary to Diflucan that has been given. The patient has been given vitamin K 5 mg by mouth and Diflucan has been discontinued after she completes a 5-day course. Currently, Coumadin is still on hold. There were no episodes of bleeding. Fresh frozen plasma has currently not been given. 6. Abnormal urinalysis (UA) - was suspected to have a possible urinary tract infection. Urine cultures remain negative on 12/10/2016. 7. Chronic constipation. Continue with bowel regimen. 8. Status post hyponatremia. 9. Status post lactic acidosis. 10. Hypothyroidism. Continue levothyroxine. 11. Asthma. Continue with DuoNeb. 12. Seizure disorder. Continue with lacosamide and seizure precautions. 13. Severe Alzheimer's dementia. Patient remains nonverbal. At baseline, she has no current mental status. 14. History of back surgery. 15. History of Clostridium difficile. 16. Anxiety. Continue with alprazolam and mirtazapine. 17. Urinary retention. Continue with bladder scans. 18. Gastroesophageal reflux disease (GERD). Continue with lansoprazole. CODE STATUS: FULL CODE. MEDICATIONS ON DISCHARGE/TRANSFER: - acetaminophen 500 mg via GJ tube every 4 hours as needed for pain - albuterol sulfate 2.5 mg inhaled every 6 hours as needed for shortness of breath - alprazolam 0.25 mg per GJ tube as directed - vitamin B12 1000 mcg intramuscularly (IM) as directed - docusate sodium one tablet via GJ tube twice a day as needed for constipation - ferrous sulfate 75 mg per GJ tube as directed - hydroxyzine 10 mg per GJ tube four times a day as needed for anxiety and agitation - Jevity liquid has been held. - lacosamide 100 mg GJ tube twice a day - lansoprazole 30 mg GJ tube twice a day - levothyroxine 75 mcg GJ daily - Milk of Magnesia 50 mg per GJ tube daily as needed for constipation - mirtazapine 45 mg per GJ tube nightly - nystatin one dose topically twice a day STOPPED MEDICATIONS: - warfarin given that she has an elevated INR. ANTIBIOTICS TO BE CONTINUED UPON TRANSFER ARE: - meropenem 1 gram IV every 8 hours DISCHARGE INSTRUCTIONS: The patient has been advised to followup with interventional radiology at [facility] for replacement and resuming feeding. TIME SPENT ON DISCHARGE: Greater than 35 minutes. MTDD
[2016-12-19] MEDS ORDERED: SCOP1DIS TD (17:03)
[2016-12-22] MEDS ORDERED: CYANOCOBALAMIN 1,000 MCG/ML VIAL (J3420) IM SCH (09:00)
== END 2016-12-19 17:30 | disposition short-term general hospital (02) | DRG 871 ==
LOC: M ED 21:25 → M ED INP 12-11 01:04 → M PCU 12-11 03:42 → M MS5PR 12-11 18:17
PROVIDERS: ADMIT Internal Medicine; ATTEND Internal Medicine
DX: A41.9 Sepsis, unspecified organism (principal); J69.0 Pneumonitis due to inhalation of food and vomit; N10 Acute pyelonephritis; E87.1 Hypo-osmolality and hyponatremia; E87.2 Acidosis; J96.11 Chronic respiratory failure with hypoxia; J98.11 Atelectasis; K94.23 Gastrostomy malfunction; J90 Pleural effusion, not elsewhere classified; B37.0 Candidal stomatitis; G30.9 Alzheimer's disease, unspecified; F02.80 Dementia in other diseases classified elsewhere, unspecified severity, without behavioral disturbance, psychotic disturbance, mood disturbance, and anxiety; Z86.73 Personal history of transient ischemic attack (TIA), and cerebral infarction without residual deficits; E03.9 Hypothyroidism, unspecified; K21.9 Gastro-esophageal reflux disease without esophagitis; J45.909 Unspecified asthma, uncomplicated; G40.909 Epilepsy, unspecified, not intractable, without status epilepticus; F41.9 Anxiety disorder, unspecified; Z86.718 Personal history of other venous thrombosis and embolism; K44.9 Diaphragmatic hernia without obstruction or gangrene; Z79.01 Long term (current) use of anticoagulants; K59.00 Constipation, unspecified; R33.9 Retention of urine, unspecified; Z79.899 Other long term (current) drug therapy; Z88.6 Allergy status to analgesic agent; Z88.1 Allergy status to other antibiotic agents; Z91.018 Allergy to other foods; Z88.8 Allergy status to other drugs, medicaments and biological substances; H35.30 Unspecified macular degeneration

== ENCOUNTER 2017-03-22 10:17 | Emergency (ER) | payer MEDICARE, MEDICAID ==
[2017-03-22 13:07] LABS: BASO % 0.2 % (0.0-1.0); EOS # 0.8 10^3/uL (0.0-0.50); EOS % 7.2 % (0.0-3.0); HEMATOCRIT 34.6 % (36.0-47.0); HEMOGLOBIN 11.3 g/dl (12.0-16.0); IMMATURE GRANULOCYTE # 0.1 10^3/uL (0-0); IMMATURE GRANULOCYTE % 0.7 % (0-0); LYMPH # 0.8 10^3/uL (1.5-4.5); MEAN CORPUSCULAR HEMOGLOBIN 30.8 pg (27.0-33.0); MEAN CORPUSCULAR HGB CONC 32.7 g/dl (32.0-36.5); MEAN CORPUSCULAR VOLUME 94.3 fl (80.0-96.0); MONO # 0.9 10^3/uL (0.0-0.8); MONO % 8.5 % (0.0-5.0); NEUTROPHILS # 8.4 10^3/uL (1.8-7.7); NEUTROPHILS % 76.4 % (36.0-66.0); PLATELET COUNT, AUTOMATED 253 10^3/uL (150-450); RED BLOOD COUNT 3.67 10^6/uL (4.00-5.40); RED CELL DISTRIBUTION WIDTH 14.8 % (11.5-14.5)
[2017-03-22 13:29] LABS: INFLUENZA A AMPLIFICATION NEGATIVE (NEGATIVE); INFLUENZA B AMPLIFICATION NEGATIVE (NEGATIVE)
[2017-03-22 13:43] LABS: ALBUMIN 3.2 GM/DL (3.2-5.2); ALBUMIN/GLOBULIN RATIO 0.86 (1.00-1.93); ALKALINE PHOSPHATASE 112 U/L (45-117); ALT/SGPT 30 U/L (12-78); ANION GAP 10 MEQ/L (8-16); AST/SGOT 21 U/L (7-37); BILIRUBIN,DIRECT 0.1 MG/DL (0.0-0.2); BILIRUBIN,TOTAL 0.3 MG/DL (0.2-1.0); BLOOD UREA NITROGEN 44 MG/DL (7-18); CALCIUM LEVEL 8.1 MG/DL (8.8-10.2); CARBON DIOXIDE LEVEL 29 MEQ/L (21-32); CHLORIDE LEVEL 99 MEQ/L (98-107); CREATININE FOR GFR 1.28 MG/DL (0.55-1.02); GLOMERULAR FILTRATION RATE 41.8 (>32); GLUCOSE, FASTING 117 MG/DL (70-100); NT-PRO BNP 824 PG/ML (<450); POTASSIUM SERUM 4.7 MEQ/L (3.5-5.1); SODIUM LEVEL 138 MEQ/L (136-145); TOTAL PROTEIN 6.9 GM/DL (6.4-8.2)
[2017-03-22] MEDS: IPRATROPIUM 0.5MG/ALBUTEROL 2.5MG INH SOL UD 3ML (DUONEB)(J7620) INH (13:55)
[2017-03-22 14:08] LABS: LACTIC ACID SEPSIS PROTOCOL 1.3 MMOL/L (0.4-2.0)
[2017-03-22] MEDS: methylPREDNISolone INJ 125 MG/2 ML VIAL (J2930) IM (14:26)
[2017-03-22] MEDS: FUROSEMIDE 40 MG/4 ML VIAL (J1940) IM (14:27)
== END 2017-03-22 15:10 | disposition home or self-care (01) ==
LOC: M ED 10:17
DX: R09.3 Abnormal sputum (principal); I51.7 Cardiomegaly; I10 Essential (primary) hypertension; J45.909 Unspecified asthma, uncomplicated; Z86.73 Personal history of transient ischemic attack (TIA), and cerebral infarction without residual deficits; F41.9 Anxiety disorder, unspecified; F32.9 Major depressive disorder, single episode, unspecified; K21.9 Gastro-esophageal reflux disease without esophagitis; R56.9 Unspecified convulsions; M62.81 Muscle weakness (generalized); F03.90 Unspecified dementia, unspecified severity, without behavioral disturbance, psychotic disturbance, mood disturbance, and anxiety; Z86.718 Personal history of other venous thrombosis and embolism; Z87.440 Personal history of urinary (tract) infections; Z43.1 Encounter for attention to gastrostomy; Z87.891 Personal history of nicotine dependence; Z79.01 Long term (current) use of anticoagulants; Z79.899 Other long term (current) drug therapy; Z88.6 Allergy status to analgesic agent; Z88.0 Allergy status to penicillin; Z88.1 Allergy status to other antibiotic agents; Z88.8 Allergy status to other drugs, medicaments and biological substances; Z91.018 Allergy to other foods
CPT/HCPCS: J1940